=== PATIENT | female | born 1945 | race Caucasian/White ===

== ENCOUNTER 2017-04-28 09:36 | Inpatient (IN) ==
[2017-04-28 12:24] LABS: Hematocrit 37.3 % (35.3-44.9); Hemoglobin 11.8 g/dL (11.5-15.4); Mean Corpuscular HGB Conc 31.6 g/dL (31.6-35.5); Mean Corpuscular Hemoglobin 28.2 pg (28.0-33.3); Mean Corpuscular Volume 89.2 fL (83.0-100.0); Mean Platelet Volume 12.1 fL (9.4-12.4); Platelet Count 109 K/mcL (140-400); Red Blood Count 4.18 M/mcL (3.82-4.97); Red Cell Distribution Width 16.4 % (11.5-14.5)
[2017-04-28 12:33] LABS: Albumin 2.6 g/dL (3.5-5.0); Albumin/Globulin Ratio 0.9 (1.1-2.2); Bilirubin,Total 3.4 mg/dL (0.2-1.2); Calcium 7.9 mg/dL (8.6-10.8); Total Protein 5.6 g/dL (6.0-8.3)
[2017-04-28 13:13] LABS: Lymphocytes # 0.2 K/mcL (0.6-4.6); Monocytes # 0.2 K/mcL (0.0-1.3); Neutrophils # 17.8 K/mcL (1.6-8.9)
[2017-04-28 13:14] LABS: Platelet Estimate Slight Decrease (Normal)
[2017-04-28 13:15] LABS: Dohle Bodies Present (Not Present)
[2017-04-28] MEDS ORDERED: Acetylcysteine 15,000 MG in D5% in Water 250 ML IVC ONE (13:50)
--- NOTE | 2017-04-28 13:51 | Internal Med History&Physical ---
<Faviola Motley - Last Filed: 04/28/17 18:08> Date of Encounter: 04/28/17 Time of Encounter: 13:43 Assessment and Plan (1) Septic shock Current visit: Yes Status: Acute Upon initial arrival to [facility] ED, patient had HR 104, Respirations 25, BP 71/54 VBG lactic acid at [facility] was 5 repeat serum lactic acid is now 3 CT abdomen/pelvis showed no significant findings. Source of infection likely secondary to UTI Patient received a dose of ceftriaxone and zosyn at the ED in [place] Plan: Continue Ceftriaxone Appreciate Critical care team input Patient received 4 fluid boluses and remains hypotensive. If she continues to be hypotensive, may require vasopressor support to maintain MAP above 65 Blood and urine cultures drawn at [facility] and are pending (2) UTI (urinary tract infection) Current visit: No Status: Acute Plan as above Qualifiers: Urinary tract infection type: site unspecified Hematuria presence: with hematuria Qualified Code(s): N39.0 - Urinary tract infection, site not specified; R31.9 - Hematuria, unspecified (3) Abdominal pain Current visit: No Status: Acute Etiology unclear at this time CT abdomen/pelvis unremarkable. upon exam, patient had no peritoneal signs or guarding present. continue to monitor. Qualifiers: Abdominal location: unspecified location Qualified Code(s): R10.9 - Unspecified abdominal pain (4) Transaminitis Current visit: Yes Status: Acute At [facility], AST was 712, ALT was 217 Etiology unclaer at this time. possibilities include shock liver, hepatitis, or drug toxicity. Plan: UDS pending. Ultrasound of liver pending. (5) DEAN (acute kidney injury) Current visit: Yes Status: Acute baseline creatinine is normal. Cr at [facility] was 2.68 Etiology likely secondary to septic shock. Plan: hold home dose lasix, avoid nephrotoxins. continue with IVF and supportive care. (6) Elevated troponin Current visit: Yes Status: Acute patient denies chest pain at this time. initial troponin at [facility] was .18 etiology could be due to renal insufficiency from DEAN Plan: EKG trend troponins q6h (7) DVT prophylaxis Current visit: Yes Status: Acute heparin SQ Internal Medicine - H&P: HPI Chief complaint: abdominal pain Admitted From: Hospital to Hospital Transfer Plans for Post Hospital Care: Home History of present illness: Ms. Wei is a 71 year old female with PMHx of recurrent UTIs parkinsonism, urinary incontinence, morbid obesity, COPD (supposed to be on home oxygen but is non compliant with it), CHF, HTN, arthritis. patient lives at home with her daughter and is bed bound at home and rarely gets up and moves around. Patient is a transfer from [facility] emergency department for septic shock. Patient is a very poor historian and is reluctant to answer many questions. Most of the history was obtained from patient's daughter Es. She arrived to [facility] ED today with CC of abdominal pain, nausea and vomiting. Patient has had abdominal pain for a couple weeks that has since been getting worse. She has had nausea and vomiting that started within the past day. Her vomit was non bloody and was yellow/green color. she had about two episodes of vomiting since last night. Her abdominal pain is about 6/10 and is diffuse, but patient did not have any guarding or peritoneal signs upon abdominal exam. She denies chest pain, shortness of breath, burning with urination. Patient does get frequent UTIs and calls her PCP office and often gets antibiotics called in for her. she says she has had about ten UTIs in the past year. SHe denies blood or urine in her stool. She does not recall eating anything out of the ordinary recently. Recent sick contacts include the daughter, who had the "flu" a couple months ago with nausea vomiting and diarrhea. Overall, patient states she feels very weak and does suffer from chronic pain due to her arthritis. Past Med Surg Social Fam HX - Past Medical History Medical history: arthritis, COPD, GERD, hypertension, osteoporosis Psychiatric history: ADHD, depression - Past Surgical History Surgical History: other - Social History Smoking Status: Never smoker Smokeless Tobacco Status: No Alcohol use: none Drug use: none - Family History Mother Living Status: Hx Family Cardiac Disorders: Yes Hx Family Endocrine Disorder: Yes (Diabetes) Internal Medicine - H&P: Meds Alendronate Sodium [Fosamax] 70 mg PO QWEEK 02/13/16 [History] Calcium Carb/Vitamin D3/Vit K1 [Calcium + D Soft Chewable Tab] 1 mg PO DAILY 04/22 [History] Citalopram Hydrobromide [Celexa] 20 mg PO DAILY 02/13/16 [History] Fluticasone Propionate Nasal [Flonase] 1 spr NS DAILY PRN 02/13/16 [History] Furosemide [Lasix] 40 mg PO DAILY 02/13/16 [History] Ranitidine HCl [Zantac] 150 mg PO BID 02/13/16 [History] Solifenacin Succinate [Vesicare] 1 mg PO HS 02/13/16 [History] Tolterodine Tartrate [Detrol] 2 mg PO BID 02/13/16 [History] Silver Sulfadiazine [Silvadene] 1 appl TP DAILY #1 tube 02/18/16 [Rx] Amitriptyline [Elavil] 25 mg PO DAILY 04/28/17 [History] DULoxetine [Cymbalta] 30 mg PO BID 04/28/17 [History] HYDROcodone/Acet 7.5/325 mg [[place] 7.5-325 mg] 1 tab PO Q6H 04/28/17 [History] Naproxen [Naprosyn] 500 mg PO BID 04/28/17 [History] Nystatin POWDER [Nystop] 1 appl TP BID 04/28/17 [History] Potassium Chloride [K-Tab ER] 20 meq PO DAILY 04/28/17 [History] Trazodone HCl 100 mg PO BID 04/28/17 [History] 3 Allergy/AdvReac Type Severity Reaction Status Date / Time ibuprofen [From Motrin] AdvReac Nausea Verified 02/13/16 10:46 All Systems PM: A 10-system review of systems was performed and is negative for pertinent findings except as documented above in the HPI. - Constitutional Constitutional: as per HPI - EENT Eyes: as per HPI Ears: as per HPI Nose, mouth and throat: as per HPI - Breasts Breasts: as per HPI - Cardiovascular Cardiovascular ROS IM: as per HPI - Respiratory Respiratory: as per HPI - Gastrointestinal Gastrointestinal: as per HPI - Genitourinary Genitourinary: as per HPI Menstruation: as per HPI - Musculoskeletal Musculoskeletal ROS IM: as per HPI - Integumentary Integumentary IM: as per HPI - Neurological Neurological ROS: as per HPI - Psychiatric Psychiatric: as per HPI - Endocrine Endocrine IM: as per HPI - Hematologic/Lymphatic Hematologic/Lymphatic: as per HPI - Allergic/Immunologic Allergic/Immunologic: as per HPI - Constitutional Vitals: Temp Pulse Resp BP Pulse Ox 98.3 F 104 20 88/50 95 04/28/17 11:46 04/28/17 12:46 04/28/17 12:46 04/28/17 12:46 04/28/17 12:46 General appearance: Present: mild distress, A&O X 3 Exam: morbidly obese - Head Head exam: Present: atraumatic, normocephalic - Neck Neck exam general surgery: Present: supple, trachea midline - Respiratory Respiratory exam: Present: CTAB - Cardiovascular Cardiovascular exam: Present: RRR, +S1, +S2 - GI/Abdominal GI/Abdominal exam: Present: hypoactive bowel sounds, soft. Absent: distended, tenderness - Extremities Exam Additional comments: non pitting edema on extremities bilaterally. - Neurological Exam Neurological exam: Present: alert, oriented X3 - Psychiatric Psychiatric exam: Present: anxious - Skin Additional comments: areas of skin breakdown in between legs and buttocks. left gluteus kenan bed sore present, appears to be superficial. left lower extremity appears to have darkened skin with thickening. Internal Med - H&P Results - Labs CBC & Chem 7: 04/28/17 12:00 04/28/17 12:00 Labs: Short CBC 04/28/17 Range/Units 12:00 WBC 19.3 H (4.3-11.1) K/mcL Hgb 11.8 (11.5-15.4) g/dL Hct 37.3 (35.3-44.9) % Plt Count 109 L (140-400) K/mcL Neutrophils # 17.8 H (1.6-8.9) K/mcL BMP 04/28/17 12:00 Sodium 139 Potassium 4.0 Chloride 106 Carbon Dioxide 23 BUN 40 H Creatinine 2.71 H Glucose 94 Calcium 7.9 L Liver Function 04/28/17 Range/Units 12:00 Total Bilirubin 3.4 H (0.2-1.2) mg/dL AST 554 H (5-34) Units/L ALT 227 H (0-55) Units/L Alkaline Phosphatase 97 (38-126) Units/L Albumin 2.6 L (3.5-5.0) g/dL <Gregory Rodrigez P - Last Filed: 04/28/17 18:12> Date of Encounter: 04/28/17 Internal Medicine - H&P: HPI History of present illness: Ms. Wei is a 71 year old female All Systems PM: A 10-system review of systems was performed and is negative for pertinent findings except as documented above in the HPI. - Constitutional Vitals: Temp Pulse Resp BP Pulse Ox 98.3 F 102 20 70/40 95 04/28/17 11:46 04/28/17 14:00 04/28/17 14:00 04/28/17 14:00 04/28/17 14:00 Internal Med - H&P Results - Labs CBC & Chem 7: 04/28/17 12:00 04/28/17 12:00 Labs: Short CBC 04/28/17 Range/Units 12:00 WBC 19.3 H (4.3-11.1) K/mcL Hgb 11.8 (11.5-15.4) g/dL Hct 37.3 (35.3-44.9) % Plt Count 109 L (140-400) K/mcL Neutrophils # 17.8 H (1.6-8.9) K/mcL BMP 04/28/17 12:00 Sodium 139 Potassium 4.0 Chloride 106 Carbon Dioxide 23 BUN 40 H Creatinine 2.71 H Glucose 94 Calcium 7.9 L Liver Function 04/28/17 Range/Units 12:00 Total Bilirubin 3.4 H (0.2-1.2) mg/dL AST 554 H (5-34) Units/L ALT 227 H (0-55) Units/L Alkaline Phosphatase 97 (38-126) Units/L Albumin 2.6 L (3.5-5.0) g/dL - Attending Attestation I examined this patient and my medical decision-making was reviewed with the Resident Physician. I agree with the documented findings, disposition and treatment plan as described except to the extent set forth below. ICU team input appreciated. 71-year-old female Complex medical history, Transferred from neighboring hospital for further management. Septic shock likely source /lung Possible shock liver Presently on appropriate antibiotics Will get ICU consult and will follow their recommendations.
[2017-04-28 14:14] LABS: Amphetamine Screen,Urine Negative ng/mL (Cutoff=1000); Barbiturate Screen,Urine Negative ng/mL (Cutoff=200); Benzodiazepines Screen,Urine Negative ng/mL (Cutoff=200); Cannabinoid Screen,Urine Negative ng/mL (Cutoff = 50); Cocaine Screen,Urine Negative ng/mL (Cutoff= 300); Opiate Screen,Urine Negative ng/mL (Cutoff=300); Phencyclidine Screen,Urine Negative ng/mL (Cutoff=25)
--- NOTE | 2017-04-28 14:57 | Pulmonology Consult Note ---
<Ethan Espino W - Last Filed: 04/28/17 17:05> Date of Encounter: 04/28/17 Medications and Allergies Alendronate Sodium [Fosamax] 70 mg PO QWEEK 02/13/16 [History] Calcium Carb/Vitamin D3/Vit K1 [Calcium + D Soft Chewable Tab] 1 mg PO DAILY 04/22 [History] Citalopram Hydrobromide [Celexa] 20 mg PO DAILY 02/13/16 [History] Fluticasone Propionate Nasal [Flonase] 1 spr NS DAILY PRN 02/13/16 [History] Furosemide [Lasix] 40 mg PO DAILY 02/13/16 [History] Ranitidine HCl [Zantac] 150 mg PO BID 02/13/16 [History] Solifenacin Succinate [Vesicare] 1 mg PO HS 02/13/16 [History] Tolterodine Tartrate [Detrol] 2 mg PO BID 02/13/16 [History] Silver Sulfadiazine [Silvadene] 1 appl TP DAILY #1 tube 02/18/16 [Rx] Amitriptyline [Elavil] 25 mg PO DAILY 04/28/17 [History] DULoxetine [Cymbalta] 30 mg PO BID 04/28/17 [History] HYDROcodone/Acet 7.5/325 mg [[place] 7.5-325 mg] 1 tab PO Q6H 04/28/17 [History] Naproxen [Naprosyn] 500 mg PO BID 04/28/17 [History] Nystatin POWDER [Nystop] 1 appl TP BID 04/28/17 [History] Potassium Chloride [K-Tab ER] 20 meq PO DAILY 04/28/17 [History] Trazodone HCl 100 mg PO BID 04/28/17 [History] 3 Allergy/AdvReac Type Severity Reaction Status Date / Time ibuprofen [From Motrin] AdvReac Nausea Verified 02/13/16 10:46 All Systems: A 10-system review of systems was performed and is negative for pertinent findings except as documented above in the HPI. Physical Examination Vital Signs: Vital Signs, Last 4 Hours Temp Pulse Resp BP Pulse Ox 04/28/17 16:00 97.9 F 109 20 105/52 97 04/28/17 15:45 109 04/28/17 15:00 105 20 93/74 97 04/28/17 14:00 102 20 70/40 95 Results - Laboratory Findings CBC and BMP: 04/28/17 12:00 04/28/17 12:00 ABG ABG pH 7.22 pH Units (7.32-7.45) L 04/28/17 16:44 ABG pCO2 48 mmHg (35-45) H 04/28/17 16:44 ABG pO2 59 mmHg (85-104) L 04/28/17 16:44 ABG O2 Saturation 84 % (95-98) L 04/28/17 16:44 Abnormal lab findings: Abnormal lab results WBC 19.3 K/mcL (4.3-11.1) H 04/28/17 12:00 RDW 16.4 % (11.5-14.5) H 04/28/17 12:00 Plt Count 109 K/mcL (140-400) L 04/28/17 12:00 Band Neutrophils % 15.0 % (0-4) H 04/28/17 12:00 Metamyelocytes % 5.0 % (0) H 04/28/17 12:00 Myelocytes % 1.0 % (0) H 04/28/17 12:00 Neutrophils # 17.8 K/mcL (1.6-8.9) H 04/28/17 12:00 Lymphocytes # 0.2 K/mcL (0.6-4.6) L 04/28/17 12:00 Dohle Bodies Present (Not Present) A 04/28/17 12:00 Platelet Estimate Slight Decrease (Normal) L 04/28/17 12:00 ABG pH 7.22 pH Units (7.32-7.45) L 04/28/17 16:44 ABG pCO2 48 mmHg (35-45) H 04/28/17 16:44 ABG pO2 59 mmHg (85-104) L 04/28/17 16:44 ABG HCO3 19.6 mEQ/L (21-27) L 04/28/17 16:44 ABG O2 Saturation 84 % (95-98) L 04/28/17 16:44 ABG Base Excess -8.0 mEq/L (-2.0 to 3.0) L 04/28/17 16:44 BUN 40 mg/dL (7-20) H 04/28/17 12:00 Creatinine 2.71 mg/dL (0.57-1.11) H 04/28/17 12:00 Est GFR ( Amer) 21 (> 60) L 04/28/17 12:00 Est GFR (Non-Af Amer) 17 (> 60) L 04/28/17 12:00 POC Glucose 91 (58-89) H 04/28/17 11:37 Lactic Acid 3.0 mmol/L (0.5-2.2) H 04/28/17 12:00 Calcium 7.9 mg/dL (8.6-10.8) L 04/28/17 12:00 Total Bilirubin 3.4 mg/dL (0.2-1.2) H 04/28/17 12:00 AST 554 Units/L (5-34) H 04/28/17 12:00 ALT 227 Units/L (0-55) H 04/28/17 12:00 Troponin I 0.24 ng/mL (0-0.03) H* 04/28/17 14:37 Serum Total Protein 5.6 g/dL (6.0-8.3) L 04/28/17 12:00 Albumin 2.6 g/dL (3.5-5.0) L 04/28/17 12:00 Albumin/Globulin Ratio 0.9 (1.1-2.2) L 04/28/17 12:00 - Clinical Findings Intake & Output: Intake & Output 04/28/17 04/28/17 04/28/17 07:59 15:59 23:59 Intake Total 825 / 825 Output Total 50 / 50 Balance -50 / -50 825 / 825 Weight 146.964 kg Consult Discharge Plan - Plan Referrals: NONE,PCP [Primary Care Provider] - - Attending Attestation I examined this patient and my medical decision-making was reviewed with the Resident Physician. I agree with the documented findings, disposition and treatment plan as described except to the extent set forth below. We independently had [id number] contact with the patient I spent 40min of Critical Care time with this patient. It involved decision making of high complexity to assess, manipulate, and support vital organ system failure and/or to prevent further life threatening deterioration of the patient' s condition. The time involved in the performance of separately reportable procedures was not counted toward critical care time. Patient seen and examined at bedside Labs, radiology, chart personally reviewed. Management was reviewed during multidisciplinary critical care rounds. Neuropsych:Awake and alrt mildy confusioin ?Encephalopathy from hepatic cause vs Sepsis. No focal deficit. Cont to avoid CYANIDE POT HARDENER depressant meds. Focus on sleep wake cycle establishment. Pulm: Acceptable oxygenation on 2L NC o2. Eidence of pulmonary vascular congestion. Holding diuresis for hypotension. Check ABG Cards: Distributive shock physiology with MOSF. CVC placed for Vasopressor ( levophed). Cont to trend Lactate. evidence of NSTEMI likely type 2MI s/t to demand ischemia and renal failure. ECHO pending. History of CHF with elvated BNP but not currently in cardiogenic shock. Goal MAP >60 FEN-GI: Acute liver failure. Unclear etiology possibly related to acetaminophen ingestion vs Sepsis. 24hour NAC protocol instituted. Hepatitis panel pending. GI consulted. CT scan notable for Colitis. RUQ U/S pending. APAP levels pending Renal: DEAN likely prerenal azotemia. Remains Auric. Trend Renal function and Potassium. Renal consult based upon clinical course. No hydronephrosis on imaging. Haji catheter placed. ID: Acute Septic Shock likely secondary to colitis antimicrobials have been given cultures obtained trend lactate every 6 hours. De-escalate ABx based upon culture sensitivities Heme/Onc: Thrombocytopenia mild coagulopathy H/H stable. No overt signs of bleeding. SCDs for DVT prophylaxis for now. Peripheral smear and Fibrinogen pending. Estefany K 5mg Subq x 3 doses for INR. Endo: Glucose Monitored and stable. Integ/MSK: Skin Care per routine ICU Nursing Protocol to prevent ulcers. Lines: All lines examined without evidence of infection including: Dispo: Remains critically ill. CODE: Full Code patient and family updated at bedside. <Nikolay Lozada - Last Filed: 04/28/17 18:58> Date of Encounter: 04/28/17 Time of Encounter: 14:57 Assessment and Plan (1) Septic shock Current Visit: Yes Status: Acute This patient was admitted to the intensive care unit because she was severely hypotensive and not fluid responsive after 4 L of normal saline. A central line was placed in the right internal jugular vein under ultrasound. This will be utilized for medication administration as well as Levophed if her mean arterial pressure cannot be maintained greater than 65. She was provided 500 mL bolus of 5% albumin. Blood cultures have been obtained. Her initial lactic acid was 3.2. We will repeat this in the morning. At this time, I believe her septic shock is multifactorial. I believe she has a urinary tract infection, as well as possible colitis. (2) Acute liver failure Current Visit: Yes Status: Acute Her latest AST was 554, ALT 227. She has an INR of 1.5. Her bilirubin was 3.2. I have consulted gastroenterology regarding this patient's care. We have obtained a and a Tylenol level and this was not elevated. She was given the N- acetylcysteine protocol. We are obtaining a right upper quadrant ultrasound. We are also providing this patient with 5 mg vitamin K over the next 3 days. Her current blood glucose is 94. We will monitor her glucose by giving checks every 4 hours as hepatic failure can lead to severe hypoglycemia. (3) UTI (urinary tract infection) Current Visit: No Status: Acute Patient is currently on Rocephin and this should cover her for urinary tract infection. We are currently awaiting urine culture. She does have positive nitrites, negative leukocyte esterase. Qualifiers: Urinary tract infection type: site unspecified Hematuria presence: with hematuria Qualified Code(s): N39.0 - Urinary tract infection, site not specified; R31.9 - Hematuria, unspecified (4) Abdominal pain Current Visit: No Status: Acute This is being followed by gastroenterology. We will repeat a lactic acid in the morning. She is also receiving a ultrasound of her right upper quadrant. She is currently on Rocephin and Flagyl. She is also on IVP protonix. Qualifiers: Abdominal location: unspecified location Qualified Code(s): R10.9 - Unspecified abdominal pain (5) DEAN (acute kidney injury) Current Visit: Yes Status: Acute Patient has a BUN of 40. Patient has a creatinine of 2.71. Her potassium is currently 3.9. We will do repeat potassiums every 6 hours. We will monitor her kidney function again in the morning and I will possibly consult nephrology. (6) Transaminitis Current Visit: Yes Status: Acute See above (7) CHF (congestive heart failure) Current Visit: Yes Status: Acute This patient has a past medical history of congestive heart failure. I did auscultate rales on her lung exam. Her chest x-ray shows bilateral pulmonary edema. We are obtaining an echocardiogram of the heart. We will repeat a chest x-ray in the morning. Qualifiers: Congestive heart failure type: unspecified congestive heart failure type Qualified Code(s): I50.9 - Heart failure, unspecified (8) Elevated troponin Current Visit: Yes Status: Acute This patient has a past medical history of congestive heart failure. She currently has no active chest pain rash or or tightness. Her EKG does not show any new ST segment changes. I suspect that her elevated troponin is multifactorial. She has poor renal function as well as CHF. We will repeat a another troponin. Her first troponin was 0.18 and her second was 0.24. We are obtaining an echocardiogram. (9) DVT prophylaxis Current Visit: Yes Status: Acute Patient was on 5000 units subcutaneous heparin. I have discontinued this and have her started her on soft compressive devices out of concern for hepatic failure and possible bleeding. I will reevaluate this in the morning. I will repeat a PT, PTT, and INR. History of Present Illness Consult date: 04/28/17 Requesting physician: Gregory Rodrigez Reason for consult: other (Hypotension) Chief complaint: Severe hypotension secondary to UTI, elevated transaminases History of present illness: This is a 71-year-old female with a past medical history of COPD, recurrent UTIs , parkinsonism, CHF, hypertension. She presented to [facility] department with a chief complaint of epigastric abdominal pain, nausea vomiting. She then was transferred to inpatient at [facility]. We were consulted in the intensive care unit due to worsening hypotension, elevated transaminases of the liver, and urinary tract infection. Past Med Surg Social Fam HX - Past Medical History Medical history: arthritis, COPD, GERD, hypertension, osteoporosis Psychiatric history: ADHD, depression - Past Surgical History Surgical History: other - Social History Smoking Status: Never smoker Smokeless Tobacco Status: No Alcohol use: none Drug use: none - Family History Mother Living Status: Hx Family Cardiac Disorders: Yes Hx Family Endocrine Disorder: Yes (Diabetes) All Systems: A 10-system review of systems was performed and is negative for pertinent findings except as documented above in the HPI. - Constitutional Constitutional: fatigue - Respiratory Respiratory: no cough, no dyspnea, no hemoptysis, no wheezing, no pain on inspirtation - Gastrointestinal Gastrointestinal: abdominal pain (Epigastric), nausea, vomiting, no hematemesis , no hematochezia, no melena - Genitourinary Genitourinary: no change in urinary stream, no difficulty urinating, no difficulty voiding, no dysuria Physical Examination Vital Signs: Vital Signs, Last 4 Hours Temp Pulse Resp BP Pulse Ox 04/28/17 14:00 102 20 70/40 95 04/28/17 12:46 104 20 88/50 95 04/28/17 11:46 98.3 F 105 20 98/63 94 04/28/17 11:45 104 General appearance: appears uncomfortable, other (Morbidly obese 71-year-old female appears to be in distress, moaning and groaning.) Eyes: nonicteric ENT: oropharynx dry Neck: supple Effort: normal Inspection: normal Auscultation: bilateral: rales Cardiovascular: other (Telemetry: Normal sinus tachycardia with a rate of 103) Integumentary: other Extremities: pink and warm, pulses normal, edema (2+ pitting edema in lower shins bilaterally) other (Patient appears to be mildly confused) Results - Laboratory Findings CBC and BMP: 04/28/17 12:00 04/28/17 12:00 Abnormal lab findings: Abnormal lab results WBC 19.3 K/mcL (4.3-11.1) H 04/28/17 12:00 RDW 16.4 % (11.5-14.5) H 04/28/17 12:00 Plt Count 109 K/mcL (140-400) L 04/28/17 12:00 Band Neutrophils % 15.0 % (0-4) H 04/28/17 12:00 Metamyelocytes % 5.0 % (0) H 04/28/17 12:00 Myelocytes % 1.0 % (0) H 04/28/17 12:00 Neutrophils # 17.8 K/mcL (1.6-8.9) H 04/28/17 12:00 Lymphocytes # 0.2 K/mcL (0.6-4.6) L 04/28/17 12:00 Dohle Bodies Present (Not Present) A 04/28/17 12:00 Platelet Estimate Slight Decrease (Normal) L 04/28/17 12:00 BUN 40 mg/dL (7-20) H 04/28/17 12:00 Creatinine 2.71 mg/dL (0.57-1.11) H 04/28/17 12:00 Est GFR ( Amer) 21 (> 60) L 04/28/17 12:00 Est GFR (Non-Af Amer) 17 (> 60) L 04/28/17 12:00 POC Glucose 91 (58-89) H 04/28/17 11:37 Lactic Acid 3.0 mmol/L (0.5-2.2) H 04/28/17 12:00 Calcium 7.9 mg/dL (8.6-10.8) L 04/28/17 12:00 Total Bilirubin 3.4 mg/dL (0.2-1.2) H 04/28/17 12:00 AST 554 Units/L (5-34) H 04/28/17 12:00 ALT 227 Units/L (0-55) H 04/28/17 12:00 Serum Total Protein 5.6 g/dL (6.0-8.3) L 04/28/17 12:00 Albumin 2.6 g/dL (3.5-5.0) L 04/28/17 12:00 Albumin/Globulin Ratio 0.9 (1.1-2.2) L 04/28/17 12:00 - Clinical Findings Intake & Output: Intake & Output 04/27/17 04/28/17 04/28/17 23:59 07:59 15:59 Output Total 0 / 0 Balance 0 / 0 Weight 146.964 kg
[2017-04-28] MEDS ORDERED: Acetylcysteine 5,000 MG in D5% in Water 500 ML IVC ONE (15:00)
[2017-04-28] MEDS ORDERED: Albumin Human 5% 25 GM/500 ML VIAL IVC ONE (15:15)
[2017-04-28 16:53] LABS: ABG HCO3 19.6 mEQ/L (21-27); ABG Oxygen Saturation 84 % (95-98); ABG PCO2 48 mmHg (35-45); ABG PH 7.22 pH Units (7.32-7.45); ABG PO2 59 mmHg (85-104); ABG TCO2 21.1 mEq/L (20-26)
[2017-04-28 16:54] LABS: Blood Gas FiO2 28 %; Blood Gas Liter Flow 2 L/MIN
[2017-04-28] MEDS: Pantoprazole 40 MG VIAL IVP SCH (16:57)
[2017-04-28] MEDS: MetroNIDAZOLE 500 MG/100 ML 500 MG/100 ML BAG IVPB SCH ×2 (16:58→23:57)
[2017-04-28] MEDS: Ondansetron 4 MG/2 ML VIAL IVP PRN ×2 (17:26→21:47)
[2017-04-28] MEDS ORDERED: 0.9 % Sodium Chloride 500 ML ONE (17:45)
[2017-04-28 17:48] LABS: Salicylate < 5.0 mg/dL (15-30)
[2017-04-28] MEDS ORDERED: Lidocaine -MPF 2% 5 ML VIAL ONE (17:54)
[2017-04-28] MEDS ORDERED: *HR* Heparin 5,000 UNIT/ML VIAL SQ SCH (18:00)
[2017-04-28] MEDS ORDERED: Acetylcysteine 10,000 MG in D5% in Water 1,000 ML IVC ONE (19:00)
--- NOTE | 2017-04-28 19:16 | Procedure Note ---
Date of procedure: 04/28/17 Condition: critical Disposition: ICU Procedures - Central Line Placement Right IJ Central Line Inserted*: Yes Central Line Catheter Replacement*: Yes Central Line Insertion: emergent Consent Obtained: written consent Procedural Pause: verify patient name and date of , timeout performed per policy, dragan and assess the site, assemble equipment and verify supplies, perform hand hygiene Patient Placed on Monitor/Pulse Ox: Yes During the Procedure: clinician is wearing sterile gloves, cap, mask,& gown during insertion, sterile field and sterile technique are maintained, patient's face is covered with drape or mask and wearing a cap, everyone in room is wearing a mask Central Line Prep: Chlorhexidine scrub Prep the Procedure Site: apply chloraprep to the skin using a back and forth scrubbing motion, apply chloraprep for 30 seconds (upper body), 1-2 min ( femoral sites), allow prep to dry, drape the patient with a full body drape Local Anesthetic: lidocaine 1% Amount of anesthesia used (mL): 5 Ultrasound Used for Placement: Yes Central Line Lumen Inserted: triple Post Procedure: sutured in place, good blood return, all ports aspirated, flushed, capped, sterile dressing applied, guide wire removed and visualized, dressing is dated Post Procedure X-Ray: tip of catheter in good position Patient Tolerated Procedure: well, no complications Complications: none Name of Clinician Inserting Central Line: Nikolay Lozada Clinician Assisting/Completing Checklist: Dr. Espino
[2017-04-28] MEDS: 0.9 % Sodium Chloride 1,000 ML IVC SCH ×2 (21:06→21:07)
[2017-04-28] MEDS: Dexmedetomidine HCl 400 MCG/100 ML MLS IVC SCH (21:47)
[2017-04-28 23:42] LABS: ABG Base Excess -9.3 mEq/L (-2.0 to 3.0); ABG HCO3 17.6 mEQ/L (21-27); ABG Oxygen Saturation 97 % (95-98); ABG PCO2 41 mmHg (35-45); ABG PH 7.24 pH Units (7.32-7.45); ABG PO2 109 mmHg (85-104); ABG TCO2 18.9 mEq/L (20-26)
[2017-04-28 23:49] LABS: Blood Gas FiO2 28 %
[2017-04-29] MEDS: Norepinephrine 4 MG in D5% in Water 250 ML IVC SCH ×2 (00:05→14:15)
[2017-04-29] MEDS ORDERED: *HR* LORazepam 2 MG/ML VIAL IVP ONE ×2 (00:08→03:44)
--- NOTE | 2017-04-29 00:15 | Event Note ---
Date of Encounter: 04/29/17 Time of Encounter: 00:13 Repeat ABG showed pH 7.24, CO2, PO2 109, HCO3 18.9. Overall improvement from previous ABG while on NC oxygen. However, patient has had significant agitation. Will start precedex drip at this time and wean as tolerated.
[2017-04-29] MEDS: Dexmedetomidine HCl 400 MCG/100 ML MLS IVC SCH ×3 (01:25→09:17)
[2017-04-29] MEDS: 0.9 % Sodium Chloride 1,000 ML IVC SCH (03:18)
[2017-04-29 03:46] LABS: Hematocrit 35.7 % (35.3-44.9); Hemoglobin 11.5 g/dL (11.5-15.4); Immature Platelets 15.5 % (1.1-6.1); Mean Corpuscular HGB Conc 32.2 g/dL (31.6-35.5); Mean Corpuscular Hemoglobin 28.1 pg (28.0-33.3); Mean Corpuscular Volume 87.3 fL (83.0-100.0); Mean Platelet Volume 12.2 fL (9.4-12.4); Platelet Count 84 K/mcL (140-400); Red Blood Count 4.09 M/mcL (3.82-4.97); Red Cell Distribution Width 16.7 % (11.5-14.5)
[2017-04-29 04:00] LABS: Alanine Aminotransferase 202 Units/L (0-55); Albumin 2.5 g/dL (3.5-5.0); Albumin/Globulin Ratio 0.8 (1.1-2.2); Alkaline Phosphatase 67 Units/L (38-126); Aspartate Amino Transferase 279 Units/L (5-34); BUN/Creatinine Ratio 14 (6-26); Blood Urea Nitrogen 48 mg/dL (7-20); Calcium 7.2 mg/dL (8.6-10.8); Carbon Dioxide 20 mEq/L (19-29); Chloride 105 mEq/L (98-109); Glucose 101 mg/dL (70-99); Magnesium 1.3 mg/dL (1.6-2.6); Osmolality,Calculated 297 (280-300); Phosphorous 3.9 mg/dL (2.3-4.7); Sodium 137 mEq/L (136-145); Total Protein 5.5 g/dL (6.0-8.3); eGFR For African Americans 16 (> 60); eGFR For Non-African Americans 13 (> 60)
[2017-04-29 04:03] LABS: Bilirubin,Total 3.5 mg/dL (0.2-1.2)
[2017-04-29 04:04] LABS: INR 2.1; Prothrombin Time 22.6 Seconds (9.4-12.1)
[2017-04-29 04:05] LABS: Ionized Calcium 0.96 mmol/L (1.15-1.35)
[2017-04-29 04:07] LABS: Activated Partial Thrombo Time 34.7 Seconds (26.0-36.0)
[2017-04-29 04:26] LABS: Monocytes # 0.5 K/mcL (0.0-1.3); Neutrophils # 22.7 K/mcL (1.6-8.9)
[2017-04-29 04:27] LABS: Dohle Bodies Present (Not Present); Platelet Estimate Decreased (Normal); Toxic Vacuolation Present (Not Present)
[2017-04-29] MEDS: Pantoprazole 40 MG VIAL IVP SCH (05:28)
[2017-04-29] MEDS: Calcium Gluconate 1,000 MG in D5% in Water 100 ML IVPB PRN ×2 (06:10→20:04)
[2017-04-29] MEDS: Magnesium Sulfate 2 GM in D5% in Water 100 ML IVPB PRN (06:11)
[2017-04-29 06:43] LABS: Lipase < 10 Units/L (8-78)
[2017-04-29] MEDS ORDERED: Fluticasone Propionate Nasal 50 MCG/SPRAY BOTTLE NS PRN (07:01)
--- NOTE | 2017-04-29 08:29 | Pulmonology Progress Note ---
<KenzieEthan W - Last Filed: 04/29/17 11:25> Date of Encounter: 04/29/17 Objective PUL Vital signs: Last Vital Signs Temp 99.0 F 04/29/17 07:56 Pulse 109 04/29/17 09:00 Resp 20 04/29/17 09:00 BP 104/51 04/29/17 09:00 Pulse Ox 92 04/29/17 09:00 Results - Laboratory Findings CBC and BMP: 04/29/17 03:30 04/29/17 03:30 ABG ABG pH 7.24 pH Units (7.32-7.45) L 04/28/17 23:22 ABG pCO2 41 mmHg (35-45) 04/28/17 23:22 ABG pO2 109 mmHg (85-104) H 04/28/17 23:22 ABG O2 Saturation 97 % (95-98) 04/28/17 23:22 PT/INR, D-dimer PT 22.6 Seconds (9.4-12.1) H 04/29/17 03:30 Abnormal lab findings: Abnormal lab results WBC 24.1 K/mcL (4.3-11.1) H 04/29/17 03:30 RDW 16.7 % (11.5-14.5) H 04/29/17 03:30 Plt Count 84 K/mcL (140-400) L 04/29/17 03:30 Band Neutrophils % 22.0 % (0-4) H 04/29/17 03:30 Metamyelocytes % 5.0 % (0) H 04/28/17 12:00 Myelocytes % 1.0 % (0) H 04/28/17 12:00 Neutrophils # 22.7 K/mcL (1.6-8.9) H 04/29/17 03:30 Toxic Vacuolation Present (Not Present) A 04/29/17 03:30 Dohle Bodies Present (Not Present) A 04/29/17 03:30 Platelet Estimate Decreased (Normal) L 04/29/17 03:30 Immature Plt Fraction 15.5 % (1.1-6.1) H 04/29/17 03:30 PT 22.6 Seconds (9.4-12.1) H 04/29/17 03:30 Fibrinogen 102 mg/dL (169-393) L 04/29/17 03:30 ABG pH 7.24 pH Units (7.32-7.45) L 04/28/17 23:22 ABG pO2 109 mmHg (85-104) H 04/28/17 23:22 ABG HCO3 17.6 mEQ/L (21-27) L 04/28/17 23:22 ABG Total CO2 18.9 mEq/L (20-26) L 04/28/17 23:22 ABG Base Excess -9.3 mEq/L (-2.0 to 3.0) L 04/28/17 23:22 Potassium 5.0 mEq/L (3.5-4.5) H 04/29/17 03:30 BUN 48 mg/dL (7-20) H 04/29/17 03:30 Creatinine 3.38 mg/dL (0.57-1.11) H 04/29/17 03:30 Est GFR ( Amer) 16 (> 60) L 04/29/17 03:30 Est GFR (Non-Af Amer) 13 (> 60) L 04/29/17 03:30 Glucose 101 mg/dL (70-99) H 04/29/17 03:30 POC Glucose 116 (58-89) H 04/29/17 07:32 Calcium 7.2 mg/dL (8.6-10.8) L 04/29/17 03:30 Ionized Calcium 0.96 mmol/L (1.15-1.35) L 04/29/17 03:30 Magnesium 1.3 mg/dL (1.6-2.6) L 04/29/17 03:30 Total Bilirubin 3.5 mg/dL (0.2-1.2) H 04/29/17 03:30 AST 279 Units/L (5-34) H 04/29/17 03:30 ALT 202 Units/L (0-55) H 04/29/17 03:30 Troponin I 0.16 ng/mL (0-0.03) H* 04/28/17 21:00 Serum Total Protein 5.5 g/dL (6.0-8.3) L 04/29/17 03:30 Albumin 2.5 g/dL (3.5-5.0) L 04/29/17 03:30 Albumin/Globulin Ratio 0.8 (1.1-2.2) L 04/29/17 03:30 Salicylates < 5.0 mg/dL (15-30) L 04/28/17 14:37 Acetaminophen 1.0 mcg/mL (10-30) L 04/28/17 14:37 - Clinical Findings Intake & Output: Intake & Output 04/28/17 04/29/17 04/29/17 23:59 07:59 15:59 Intake Total 976 / 976 300 / 300 414 / 414 Output Total 0 / 0 35 / 35 Balance 976 / 976 265 / 265 414 / 414 Consult Discharge Plan - Plan Referrals: NONE,PCP [Primary Care Provider] - - Attending Attestation I examined this patient and my medical decision-making was reviewed with the Resident Physician. I agree with the documented findings, disposition and treatment plan as described except to the extent set forth below. We independently had [id number] contact with the patient I spent 35min of Critical Care time with this patient. It involved decision making of high complexity to assess, manipulate, and support vital organ system failure and/or to prevent further life threatening deterioration of the patient' s condition. The time involved in the performance of separately reportable procedures was not counted toward critical care time. Patient seen and examined at bedside Labs, radiology, chart personally reviewed. Management was reviewed during multidisciplinary critical care rounds. Neuropsych: worsening encephalopathy which is metabolic, possible liver disease , and sepsis. Cont precedex. Avoid MANAGER STERILE depressants. Sleep Wake Cycle Jain Pulm: Acceptable oxygenation on 2L NC o2. Mild respiratory insufficiency based upon ABG but poor candidate for NIV becacuse of AMS and vomiting. Will monitor closely may need intubation if further clinical deterioration. Clear evidence of pulmonary edema but DEAN reqiring HD will attempt fluid removal this way. Cards: Shock physiology with MOSF.most c/w distributive shock may have component of Cardiogenic shock based upon ECHO findings. encouragingly lactate is normalizing but she is requriing low dose infusion of levophed to keep MAP > 60. NSTEMI likely demand ischemia. ECHO shows reduced EF% Cardiology consulted. No prior ECHO to compare with. FEN-GI: Acute liver insufficiecy. Unclear etiology possibly related to Sepsis. 24hour NAC protocol given (APAP wnl) Hepatitis panel pending. GI consulted. CT scan notable for Colitis. RUQ U/S pending. unremarkable. Lipase WNL. Renal: DEAN likely prerenal azotemia. Remains Auric. Trend Renal function and Potassium which is elevated today and kayexalate given. Renal consult for HD. ID: Acute Septic Shock likely secondary of unclear etiology but possible intrrabdominal given ongoing pain however CT abd without acute process. antimicrobials have been given cultures. De-escalate ABx based upon culture sensitivities Heme/Onc: Thrombocytopenia mild coagulopathy H/H stable. No overt signs of bleeding. SCDs for DVT prophylaxis for now. Peripheral smear pending. Fibrinogen low normal (102) no overt evidence of bleeding to suggest DIC but will follow closely. Vitamin K given. Endo: Glucose Monitored and stable. Integ/MSK: Skin Care per routine ICU Nursing Protocol to prevent ulcers. Lines: All lines examined without evidence of infection including: right CVC Dispo: Remains critically ill. CODE: Full Code patient and family updated at bedside. Palliative Care Consulted. . <Nikolay Lozada - Last Filed: 04/29/17 13:10> Date of Encounter: 04/29/17 Time of Encounter: 08:29 Assessment and Plan (1) Septic shock Current Visit: Yes Status: Acute Patient is currently on 5 mcg/m Levophed to maintain a map greater than 60. We will continue doing this. She is currently on Rocephin and Flagyl for antimicrobial coverage. Her highest temperature was 99.0. Her leukocytosis is 24.1. Patient did have an elevated lactic acid yesterday that was elevated at 3.2. Today, this has normalized and is currently at 1.2. Patient received 4 L of normal saline yesterday as well as an additional 1000 mL of N- acetylcysteine. With her congestive heart failure, she developed some pulmonary edema. We are currently holding any new additional fluids at this time. (2) Acute liver failure Current Visit: Yes Status: Acute Hepatic transaminases have improved slightly. However, this patient appears to be encephalopathic. I have obtained an ammonia level and is currently 27. We will continue monitoring her hepatic transaminases. Today's AST is 279, ALT is 202, she does have a elevated total bilirubin at 3.5. We are currently providing this patient with 5 mg of vitamin K today is the second day of her 3 day regimen. This patient has an INR of 2.1, PTT of 22.6, and an a PTT of 34.7. Her fibrinogen levels are low. There are 102. This patient currently does not have any source of active bleeding. We will continue monitoring this. Qualifiers: Hepatic coma status: without hepatic coma Qualified Code(s): K72.00 - Acute and subacute hepatic failure without coma (3) UTI (urinary tract infection) Current Visit: No Status: Acute This patient has a history of recurrent urinary tract infections. She does have a urinalysis that is nitrite positive. It also shows bacteria. It is leukocyte esterase negative. We are obtaining a urine culture and sensitivity. Right now this patient is on Rocephin which should cover for her urinary tract infection. This is the only source of infection that we have found at this time that could be causing her septic shock. Qualifiers: Urinary tract infection type: site unspecified Hematuria presence: with hematuria Qualified Code(s): N39.0 - Urinary tract infection, site not specified; R31.9 - Hematuria, unspecified (4) Abdominal pain Current Visit: No Status: Acute The limousine rental clerk was consulted regarding her epigastric abdominal pain, and elevated hepatic transaminases. At this time, he is not recommending any further treatment. Once patient stabilizes, however, he does recommend performing an MRCP on this patient. Note that her hepatic panel came back negative. Her right upper quadrant ultrasound was also unremarkable. We will continue monitoring this patient's mental status as well as abdominal pain through her stay. 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 A dialysis catheter was placed today. Her renal function has declined from where it was yesterday. This patient has a BUN of 48. She has a creatinine of 3.38. Her creatinine yesterday was 2.71. Her potassium is 5.0. This has worsened from 4.6 from her last potassium. Sintia will correct her hyperkalemia. (6) Transaminitis Current Visit: Yes Status: Acute A hep panel was obtained and the screening was negative for hepatitis A, hepatitis B, or hepatitis C. We will continue monitoring to trend her hepatic transaminases. Patient appears to be encephalopathic at this time with her worsening altered mental status. We have obtained an ammonia level and this is within normal limits. (7) CHF (congestive heart failure) Current Visit: Yes Status: Acute An echocardiogram was performed and that showed left ventricular systolic dysfunction. Patient has not left ventricular ejection fraction of 30-35%. There is no previous echocardiogram to compare this to. I have consulted cardiology regarding this patient. Care Specialist states at this time the patient is too unstable to undergo a cardiac catheterization. However, this could be the plan in the future once she stabilizes. He also believes that a gram-negative sepsis can contribute to a lowered ejection fraction and wall motion abnormalities. This patient's troponin is elevated, but has stabilized. She has no ischemic EKG changes. I suspect that her elevated troponin is due to decreased clearance from her acute kidney injury. Qualifiers: Congestive heart failure type: unspecified congestive heart failure type Congestive heart failure chronicity: acute on chronic Qualified Code(s): I50.9 - Heart failure, unspecified (8) Elevated troponin Current Visit: Yes Status: Acute See above (9) DVT prophylaxis Current Visit: Yes Status: Acute Patient was on 5000 units of heparin subcutaneous every 8 hours. However, she is becoming thrombocytopenic, there is concern that her hepatic failure will prevent her from making coagulation factors. We will now began soft compressive devices. Subjective Principal diagnosis: Septic shock Interval history: Patient became more altered last night. She began screaming out and moaning. She was placed on a pressor dose drip. She was also given Ativan. On exam, patient cannot provide a history. She is moaning and groaning in the room. Objective PUL Vital signs: Last Vital Signs Temp 99.0 F 04/29/17 07:56 Pulse 110 04/29/17 08:00 Resp 20 04/29/17 08:00 BP 91/46 04/29/17 08:00 Pulse Ox 93 04/29/17 08:00 General appearance: agitated, appears uncomfortable, other (Obese 71-year-old female moaning and groaning) Eyes: icteric ENT: oropharynx dry Effort: very labored Auscultation: bilateral: rales Cardiovascular: other Gastrointestinal: hypoactive bowel sounds, other (Firm, mildly distended) Integumentary: normal Extremities: pink and warm, pulses normal, no ischemia or petechiae, edema (2+ pitting edema bilaterally in the lower extremities) unable to assess due to mental status (Patient appeared to be altered, moaning and groaning) Results - Laboratory Findings CBC and BMP: 04/29/17 03:30 04/29/17 03:30 ABG ABG pH 7.24 pH Units (7.32-7.45) L 04/28/17 23:22 ABG pCO2 41 mmHg (35-45) 04/28/17 23:22 ABG pO2 109 mmHg (85-104) H 04/28/17 23:22 ABG O2 Saturation 97 % (95-98) 04/28/17 23:22 PT/INR, D-dimer PT 22.6 Seconds (9.4-12.1) H 04/29/17 03:30 Abnormal lab findings: Abnormal lab results WBC 24.1 K/mcL (4.3-11.1) H 04/29/17 03:30 RDW 16.7 % (11.5-14.5) H 04/29/17 03:30 Plt Count 84 K/mcL (140-400) L 04/29/17 03:30 Band Neutrophils % 22.0 % (0-4) H 04/29/17 03:30 Metamyelocytes % 5.0 % (0) H 04/28/17 12:00 Myelocytes % 1.0 % (0) H 04/28/17 12:00 Neutrophils # 22.7 K/mcL (1.6-8.9) H 04/29/17 03:30 Toxic Vacuolation Present (Not Present) A 04/29/17 03:30 Dohle Bodies Present (Not Present) A 04/29/17 03:30 Platelet Estimate Decreased (Normal) L 04/29/17 03:30 Immature Plt Fraction 15.5 % (1.1-6.1) H 04/29/17 03:30 PT 22.6 Seconds (9.4-12.1) H 04/29/17 03:30 Fibrinogen 102 mg/dL (169-393) L 04/29/17 03:30 ABG pH 7.24 pH Units (7.32-7.45) L 04/28/17 23:22 ABG pO2 109 mmHg (85-104) H 04/28/17 23:22 ABG HCO3 17.6 mEQ/L (21-27) L 04/28/17 23:22 ABG Total CO2 18.9 mEq/L (20-26) L 04/28/17 23:22 ABG Base Excess -9.3 mEq/L (-2.0 to 3.0) L 04/28/17 23:22 Potassium 5.0 mEq/L (3.5-4.5) H 04/29/17 03:30 BUN 48 mg/dL (7-20) H 04/29/17 03:30 Creatinine 3.38 mg/dL (0.57-1.11) H 04/29/17 03:30 Est GFR ( Amer) 16 (> 60) L 04/29/17 03:30 Est GFR (Non-Af Amer) 13 (> 60) L 04/29/17 03:30 Glucose 101 mg/dL (70-99) H 04/29/17 03:30 POC Glucose 116 (58-89) H 04/29/17 07:32 Calcium 7.2 mg/dL (8.6-10.8) L 04/29/17 03:30 Ionized Calcium 0.96 mmol/L (1.15-1.35) L 04/29/17 03:30 Magnesium 1.3 mg/dL (1.6-2.6) L 04/29/17 03:30 Total Bilirubin 3.5 mg/dL (0.2-1.2) H 04/29/17 03:30 AST 279 Units/L (5-34) H 04/29/17 03:30 ALT 202 Units/L (0-55) H 04/29/17 03:30 Troponin I 0.16 ng/mL (0-0.03) H* 04/28/17 21:00 Serum Total Protein 5.5 g/dL (6.0-8.3) L 04/29/17 03:30 Albumin 2.5 g/dL (3.5-5.0) L 04/29/17 03:30 Albumin/Globulin Ratio 0.8 (1.1-2.2) L 04/29/17 03:30 Salicylates < 5.0 mg/dL (15-30) L 04/28/17 14:37 Acetaminophen 1.0 mcg/mL (10-30) L 04/28/17 14:37 - Diagnostic Findings Chest x-ray: report reviewed, image reviewed - Clinical Findings Intake & Output: Intake & Output 04/28/17 04/29/17 04/29/17 23:59 07:59 15:59 Intake Total 976 / 976 300 / 300 Output Total 0 / 0 35 / 35 Balance 976 / 976 265 / 265
[2017-04-29] MEDS: MetroNIDAZOLE 500 MG/100 ML 500 MG/100 ML BAG IVPB SCH ×3 (09:02→23:44)
[2017-04-29] MEDS ORDERED: 0.9 % Sodium Chloride 1,000 ML PRIME SCH (09:04)
[2017-04-29] MEDS ORDERED: 0.9 % Sodium Chloride 1,000 ML IVC SCH (09:15)
--- NOTE | 2017-04-29 09:15 | Nephrology Consult Note ---
Date of Encounter: 04/29/17 Time of Encounter: 09:13 Assessment and Plan (1) DEAN (acute kidney injury) Current Visit: Yes Status: Acute Anuric DEAN suspect ATN in the setting of suspected MOD and sepsis. Recommend start CRRT, specifically CVVHDF: 4K/2.5Ca 1250mL/ for the dialystate and replacement fluid both. Start BFR at 100 and fluid removal slowly, and uptitrate as hemodynamics tolerate D/t the elevated LFTs, she should not be started on Citrate/Ca gtt. Will follow with you. Thank you for consulting the [facility] group. (2) Septic shock Current Visit: Yes Status: Acute As per primary (3) Transaminitis Current Visit: Yes Status: Acute Most likely d/t shock liver (4) Sepsis Current Visit: No Status: Acute As per primary Qualifiers: Sepsis type: sepsis due to unspecified organism Qualified Code(s): A41.9 - Sepsis, unspecified organism (5) UTI (urinary tract infection) Current Visit: No Status: Acute As per primary Qualifiers: Urinary tract infection type: site unspecified Hematuria presence: with hematuria Qualified Code(s): N39.0 - Urinary tract infection, site not specified; R31.9 - Hematuria, unspecified (6) Edema Current Visit: No Status: Chronic Contributing to her morbidity Qualifiers: Edema type: unspecified Qualified Code(s): R60.9 - Edema, unspecified History of Present Illness - Reason for Consult Consult date: 04/29/17 Acute Kidney Injury Requesting physician: Ethan Espino - Chief Complaint DEAN - History of Present Illness Mitchel Wei is a very pleasant morbidly obese WF who was found to have an DEAN, shock liver and hypotension. She was noted to have no prior cable layer in her record. She has no NSAIDs on her med list. Subjective history was largely limited d/t her AMS. Past Med Surg Social Fam HX - Past Medical History Medical history: arthritis, COPD, GERD, hypertension, osteoporosis Psychiatric history: ADHD, depression - Past Surgical History Surgical History: other - Social History Smoking Status: Never smoker Smokeless Tobacco Status: No Alcohol use: none Drug use: none - Family History Mother Living Status: Hx Family Cardiac Disorders: Yes Hx Family Endocrine Disorder: Yes (Diabetes) Medications and Allergies Alendronate Sodium [Fosamax] 70 mg PO QWEEK 02/13/16 [History] Calcium Carb/Vitamin D3/Vit K1 [Calcium + D Soft Chewable Tab] 1 mg PO DAILY 04/22 [History] Citalopram Hydrobromide [Celexa] 20 mg PO DAILY 02/13/16 [History] Fluticasone Propionate Nasal [Flonase] 1 spr NS DAILY PRN 02/13/16 [History] Furosemide [Lasix] 40 mg PO DAILY 02/13/16 [History] Ranitidine HCl [Zantac] 150 mg PO BID 02/13/16 [History] Solifenacin Succinate [Vesicare] 1 mg PO HS 02/13/16 [History] Tolterodine Tartrate [Detrol] 2 mg PO BID 02/13/16 [History] Silver Sulfadiazine [Silvadene] 1 appl TP DAILY #1 tube 02/18/16 [Rx] Amitriptyline [Elavil] 25 mg PO DAILY 04/28/17 [History] DULoxetine [Cymbalta] 30 mg PO BID 04/28/17 [History] HYDROcodone/Acet 7.5/325 mg [[place] 7.5-325 mg] 1 tab PO Q6H 04/28/17 [History] Naproxen [Naprosyn] 500 mg PO BID 04/28/17 [History] Nystatin POWDER [Nystop] 1 appl TP BID 04/28/17 [History] Potassium Chloride [K-Tab ER] 20 meq PO DAILY 04/28/17 [History] Trazodone HCl 100 mg PO BID 04/28/17 [History] 3 Allergy/AdvReac Type Severity Reaction Status Date / Time ibuprofen [From Motrin] AdvReac Nausea Verified 02/13/16 10:46 Review of Systems ROS unobtainable: due to mental status Exam - Vital Signs Vital signs: Initial Vital Signs Pulse 104 04/28/17 11:45 Vital Signs - Last 8 Hours Temp Pulse Resp BP Pulse Ox 04/29/17 08:00 110 20 91/46 93 04/29/17 07:56 99.0 F 04/29/17 07:00 113 22 96/58 92 04/29/17 06:00 110 20 101/65 94 04/29/17 05:00 111 20 105/69 94 04/29/17 04:00 98.9 F 111 20 94/63 94 04/29/17 03:00 112 19 106/62 94 04/29/17 02:00 113 19 113/56 94 Intake and Output 04/28/17 04/29/17 04/29/17 23:59 07:59 15:59 Intake Total 976 / 976 300 / 300 214 / 214 Output Total 0 / 0 35 / 35 Balance 976 / 976 265 / 265 214 / 214 Intake: IV Fluids 976 / 976 300 / 300 214 / 214 Acetadote 15,000 MG In 325 / 325 Dextrose 5% 250 ML @ 250 mls/hr IVC ONCE ONE Rx#: [id number] ALBURX 5% 25 gm In 500 ml 500 / 500 @ Wide Open IVC .Q0M ONE Rx#:[id number] PRECEDEX Premix 400 mcg 200 / 200 In 100 ml @ 0.2 MCG/KG/HR 7.348 mls/hr IVC . [id number] [facility] Rx#: [id number] Calcium Gluconate 1,000 110 / 110 MG In Dextrose 5% 100 ML @ 50 mls/hr IVPB Q6HR PRN Rx#:[id number] Magnesium Sulfate 2 GM In 104 / 104 Dextrose 5% 100 ML @ 50 mls/hr IVPB Q6H PRN Rx#: [id number] Flagyl Premix 500 MG/100 100 / 100 100 / 100 ML 500 mg In 100 ml @ 100 mls/hr IVPB Q8HR [facility] Rx# :[id number] AquaMephyton 5 MG In 0.9 51 / 51 % Sodium Chloride 50 ML @ 100 mls/hr IVPB ONCE ONE Rx#:[id number] Output: Catheter 0 / 0 35 / 35 Other: Blood Glucose* 128 116 - General Appearance General appearance: appears started age, obese, chronically ill, frail EENT: ATNC, PERRL, mucous membranes moist Neck: supple Respiratory: course breath sounds Cardiology: edema, regular rate, normal S1, normal S2 Gastrointestinal: normoactive bowel sounds, no tenderness, no guarding, obese Integumentary: no rash, warm and dry Neurologic: no asterixis Musculoskeletal: no cyanosis, no clubbing Psychiatric: cooperative Results - Lab Results 04/30/17 03:30 04/30/17 03:30 Most recent lab results ABG pH 7.24 pH Units (7.32-7.45) L 04/28/17 23:22 ABG pCO2 41 mmHg (35-45) 04/28/17 23: ABG pO2 109 mmHg (85-104) H 04/28/17 23: ABG HCO3 17.6 mEQ/L (21-27) L 04/28/17 23: ABG O2 Saturation 97 % (95-98) 04/28/17 23: Calcium 7.2 mg/dL (8.6-10.8) L 04/29/17 03:30 Phosphorus 3.9 mg/dL (2.3-4.7) 04/29/17 03:30 Magnesium 1.3 mg/dL (1.6-2.6) L 04/29/17 03:30 I reviewed the above data cornelius and the progress notes, labs, meds, vitals, I/ Os and imaging. Consult Discharge Plan - Plan Referrals: NONE,PCP [Primary Care Provider] -
[2017-04-29] MEDS ORDERED: *HR* Heparin 5,000 UNIT/ML VIAL ONE (09:37)
--- NOTE | 2017-04-29 10:06 | IR Procedure Note ---
Date of procedure: 04/29/17 Consent Obtained: Written consent Timeout: Correct patient and procedure verified, Correct site verified, Time out performed, Skin prep completed Indications: renal failure Procedure Performed: temp HD line Site/Technique: rt IJ Results/Findings: triple lumen catheter in good position Estimated blood loss (cc): 0 Complications: None; Tolerated procedure well Post Procedure Treatment Plan: CXR and then use
[2017-04-29 10:34] LABS: Hepatitis A Antibody IgM Nonreactive (Nonreactive); Hepatitis B Core IgM Nonreactive (Nonreactive); Hepatitis B Surface Antigen Nonreactive (Nonreactive); Hepatitis C Virus Antibody Nonreactive (Nonreactive)
--- NOTE | 2017-04-29 11:32 | Gastroenterology Consult Note ---
<Daniel Monroy - Last Filed: 04/29/17 11:30> Date of Encounter: 04/29/17 Time of Encounter: 10:05 - Assessment and plan (1) Transaminitis Current Visit: Yes Status: Acute Assessment and plan: AST 712 and ALT 217 at [facility]. Today, AST 279 and ALT 202. Likely secondary to ischemia due to sepsis and hypotension. CT A/P with no acute process. Liver ultrasound unremarkable. Hepatitis profile negative. When pt stable, recommend MRCP to rule out obstruction. Recommend monitoring LFTs daily. (2) Sepsis Current Visit: No Status: Acute Assessment and plan: Management per primary team. Patient on IV antibiotics, Levophed, and to start CRRT. Qualifiers: Sepsis type: sepsis due to unspecified organism Qualified Code(s): A41.9 - Sepsis, unspecified organism (3) DEAN (acute kidney injury) Current Visit: Yes Status: Acute Assessment and plan: Patient to start CRRT per nephrology. - Time Spent With Patient Total time spent is greater than 50% in coordination of care (as documented) at patient's floor/unit and/or counseling patient: GI History of Present Illness - Data of Consult Patient: new to practice Consult date: 04/29/17 Requesting Physician: Senait Hughes MD - Consult Narrative Reason for consult: Elevated transaminases, abdominal pain History of present illness: Ms. Wei is a 71 year old female with PMHx of arthritis, COPD, GERD, HTN, Parkinsonism, morbid obesity, CHF, who was transferred from [facility] ED for septic shock. She presented to [facility] ED with complaints of abdominal pain , nausea, and vomiting. Patient had complained of abdominal pain for the past couple of weeks, and stated the nausea and vomiting started a day or 2 before admission. This patient was admitted to the ICU because she was severely hypotensive and not fluid responsive after 4 L of normal saline. CT A/P with no acute process. Liver ultrasound unremarkable. We were consulted to evaluate her elevated transaminases, at [facility] ED AST 712, ALT 217. History obtain through chart review. Procedures: None NSAIDs: None Anticoagulation: None Past Med Surg Social Fam HX - Past Medical History Medical history: arthritis, COPD, GERD, hypertension, osteoporosis Psychiatric history: ADHD, depression - Past Surgical History Surgical History: other - Social History Smoking Status: Never smoker Smokeless Tobacco Status: No Alcohol use: none Drug use: none - Family History Mother Living Status: Hx Family Cardiac Disorders: Yes Hx Family Endocrine Disorder: Yes (Diabetes) ROS unobtainable: due to mental status - Constitutional Vitals: Temp Pulse Resp BP Pulse Ox 99.0 F 112 20 102/48 92 04/29/17 07:56 04/29/17 10:00 04/29/17 10:00 04/29/17 10:00 04/29/17 10:00 General appearance: Present: A&O X 0 - Head Head exam: Present: atraumatic, normocephalic - Eye Eye exam: Present: normal appearance, sclera anicteric - ENT ENT exam: Present: mucous membranes dry - Neck Neck exam general surgery: Present: normal inspection, trachea midline - Respiratory Respiratory exam: Present: decreased breath sounds, CTAB - Cardiovascular Cardiovascular exam: Present: RRR, +S1, +S2 - GI/Abdominal GI/Abdominal exam: Present: soft, no peritoneal signs. Absent: distended, firm , guarding, tenderness - Rectal Rectal exam: Present: deferred - Extremities Exam Extremities exam: Present: warm - Psychiatric Psychiatric exam: Present: normal affect, normal mood - Skin Skin exam: Present: dry, intact, normal color, warm Results - Labs CBC & Chem 7: 04/29/17 03:30 04/29/17 03:30 Labs: Last Result Calcium 7.2 mg/dL (8.6-10.8) L 04/29/17 03:30 Troponin I 0.16 ng/mL (0-0.03) H* 04/28/17 21:00 Salicylates < 5.0 mg/dL (15-30) L 04/28/17 14:37 Urine Opiates Screen Negative ng/mL (Xvevwg=531) 04/28/17 11:29 Entire Visit Hgb 11.5 g/dL (11.5-15.4) 04/29/17 03:30 Hct 35.7 % (35.3-44.9) 04/29/17 03:30 PT 22.6 Seconds (9.4-12.1) H 04/29/17 03:30 Total Bilirubin 3.5 mg/dL (0.2-1.2) H 04/29/17 03:30 AST 279 Units/L (5-34) H 04/29/17 03:30 ALT 202 Units/L (0-55) H 04/29/17 03:30 Ammonia 27 mcmol/L (18-72) 04/29/17 03:30 Lipase < 10 Units/L (8-78) 04/29/17 03:30 Acetaminophen 1.0 mcg/mL (10-30) L 04/28/17 14:37 - ABG ABG results: ABG ABG pH 7.24 pH Units (7.32-7.45) L 04/28/17 23:22 ABG pCO2 41 mmHg (35-45) 04/28/17 23:22 ABG pO2 109 mmHg (85-104) H 04/28/17 23:22 ABG O2 Saturation 97 % (95-98) 04/28/17 23:22 PT/INR, D-dimer PT 22.6 Seconds (9.4-12.1) H 04/29/17 03:30 - Impressions Impressions Liver Ultrasound 04/28/17 00:00 IMPRESSION: Unremarkable right upper quadrant ultrasound. D/ / Primo Gaines MD / Primo Gaines MD Interpreting Provider: Primo Gaines MD Chest X-Ray 04/28/17 15:56 IMPRESSION: A right internal jugular venous catheter has been placed. The tip of the catheter is superimposed on the right lower lobe pulmonary artery. This is likely related to rotation on this portable examination. Follow-up non rotated study or CT examination would be helpful. D/ / Anoop Stock MD / Anoop Stock MD Interpreting Provider: Anoop Stock MD Chest X-Ray 04/28/17 18:08 IMPRESSION: Right internal jugular central venous catheter tip projects over the lower SVC. D/ / Bhupinder Raines MD / Bhupinder Raines MD Interpreting Provider: Bhupinder Raines MD Chest X-Ray 04/29/17 04:00 IMPRESSION: 1. Stable lines and tubes. 2. Worsening left base opacity with pleural effusion, otherwise, stable cardiopulmonary status. D/ / 04/29/2017 07:49:03 Gudelia Valero MD / tiffanie Interpreting Provider: Gudelia Valero MD Chest X-Ray 04/29/17 09:53 IMPRESSION: 1. Interval placement of right IJ hemodialysis catheter with the tip near the cavoatrial junction. No pneumothorax pre 2. Otherwise, stable chest with cardiomegaly and pulmonary edema and possible small pleural effusions. D/ / Ifrah Goodwin MD / Ifrah Goodwin MD Interpreting Provider: Ifrah Goodwin MD Consult Discharge Plan - Plan Referrals: NONE,PCP [Primary Care Provider] - <Paulo Mckeon - Last Filed: 04/29/17 18:05> Date of Encounter: 04/29/17 Time of Encounter: 18:00 - Time Spent With Patient Total time spent is greater than 50% in coordination of care (as documented) at patient's floor/unit and/or counseling patient: GI History of Present Illness - Data of Consult Requesting Physician: Senait Hughes MD - Consult Narrative History of present illness: Ms. Wei is a 71 year old female - Constitutional Vitals: Temp Pulse Resp BP Pulse Ox 96.8 F L 99 20 97/65 98 04/29/17 16:00 04/29/17 17:00 04/29/17 17:00 04/29/17 17:00 04/29/17 17:00 Results - Labs CBC & Chem 7: 04/29/17 03:30 04/29/17 03:30 Labs: Last Result Calcium 7.2 mg/dL (8.6-10.8) L 04/29/17 03:30 Troponin I 0.16 ng/mL (0-0.03) H* 04/28/17 21:00 Salicylates < 5.0 mg/dL (15-30) L 04/28/17 14:37 Urine Opiates Screen Negative ng/mL (Hyatiq=661) 04/28/17 11:29 Entire Visit Hgb 11.5 g/dL (11.5-15.4) 04/29/17 03:30 Hct 35.7 % (35.3-44.9) 04/29/17 03:30 PT 22.6 Seconds (9.4-12.1) H 04/29/17 03:30 Total Bilirubin 3.5 mg/dL (0.2-1.2) H 04/29/17 03:30 AST 279 Units/L (5-34) H 04/29/17 03:30 ALT 202 Units/L (0-55) H 04/29/17 03:30 Ammonia 27 mcmol/L (18-72) 04/29/17 03:30 Lipase < 10 Units/L (8-78) 04/29/17 03:30 Acetaminophen 1.0 mcg/mL (10-30) L 04/28/17 14:37 - ABG ABG results: ABG ABG pH 7.24 pH Units (7.32-7.45) L 04/28/17 23:22 ABG pCO2 41 mmHg (35-45) 04/28/17 23:22 ABG pO2 109 mmHg (85-104) H 04/28/17 23:22 ABG O2 Saturation 97 % (95-98) 04/28/17 23:22 PT/INR, D-dimer PT 22.6 Seconds (9.4-12.1) H 04/29/17 03:30 - Impressions Impressions Liver Ultrasound 04/28/17 00:00 IMPRESSION: Unremarkable right upper quadrant ultrasound. D/ / Primo Gaines MD / Primo Gaines MD Interpreting Provider: Primo Gaines MD Chest X-Ray 04/28/17 18:08 IMPRESSION: Right internal jugular central venous catheter tip projects over the lower SVC. D/ / Bhupinder Raines MD / Bhupinder Raines MD Interpreting Provider: Bhupinder Raines MD Guidance Needle Placement Ultrasound 04/29/17 00:00 IMPRESSION: Successful ultrasound guided non-tunneled right jugular temporary hemodialysis catheter placement. D/ /29/2017 13:04:30 Sarai Quispe MD / lesli Interpreting Provider: Sarai Quispe MD Insertion Non-Tunneled Catheter 04/29/17 00:00 IMPRESSION: Successful ultrasound guided non-tunneled right jugular temporary hemodialysis catheter placement. D/ /29/2017 13:04:30 Sarai Quispe MD / lesli Interpreting Provider: Sarai Quispe MD Chest X-Ray 04/29/17 04:00 IMPRESSION: 1. Stable lines and tubes. 2. Worsening left base opacity with pleural effusion, otherwise, stable cardiopulmonary status. D/ / 04/29/2017 07:49:03 Gudelia Valero MD / [facility] Interpreting Provider: Gudelia Valero MD Chest X-Ray 04/29/17 09:53 IMPRESSION: 1. Interval placement of right IJ hemodialysis catheter with the tip near the cavoatrial junction. No pneumothorax pre 2. Otherwise, stable chest with cardiomegaly and pulmonary edema and possible small pleural effusions. D/ / Ifrah Goodwin MD / Ifrah Goodwin MD Interpreting Provider: Ifrah Goodwin MD Retroperitoneum Ultrasound 04/29/17 10:30 IMPRESSION: No hydronephrosis. No abnormality in the kidneys. D/ / Willi Wilcox MD / Willi Wilcox MD Interpreting Provider: Willi Wilcox MD - Attending Attestation I examined this patient and my medical decision-making was reviewed with the Resident Physician. I agree with the documented findings, disposition and treatment plan as described except to the extent set forth below. Patient with sepsis and has abnormal LFTs. Ultrasound with no CBD dilation US surgically absent, abnormal LFTs are most probably due to shock liver as blood pressure was in the 70s on admission. Recommendation: MRCP to rule out CBD stone.
[2017-04-29] MEDS ORDERED: 0.9 % Sodium Chloride 500 ML ONE (12:13)
[2017-04-29] MEDS: PrismaSATE BGK 4/2.5 5,000 ML CRRT SCH ×6 (12:30→22:19)
--- NOTE | 2017-04-29 12:43 | Palliative - Consult Note ---
Date of Encounter: 04/29/17 Time of Encounter: 11:00 - Assessment and Plan (1) UTI (urinary tract infection) Current Visit: No Status: Acute Assessment and plan: White count is elevated, patient is on antibiotics. Cultures are pending. Qualifiers: Urinary tract infection type: site unspecified Hematuria presence: with hematuria Qualified Code(s): N39.0 - Urinary tract infection, site not specified; R31.9 - Hematuria, unspecified (2) Goals of care, counseling/discussion Current Visit: Yes Status: Acute Assessment and plan: CODE STATUS discussed with the intensive care team. Per family patient wished to be a full code currently she is. Care patient would like to have her enough to go home. Where she does not get around very well, however this is where she wishes to be. Not want to go to a long-term. We will continue to follow. 5 children involved 3 boys 2 girls, daughter Es who the patient lives with the family spokesperson. There are no advanced directives there is no medical power of corporate associate attorney. Es one sister and one brother all assured me that all of the family has been informed and they are in agreement. (3) Abdominal pain Current Visit: No Status: Acute Assessment and plan: Probably secondary to UTI plus colitis. Qualifiers: Abdominal location: unspecified location Qualified Code(s): R10.9 - Unspecified abdominal pain (4) DEAN (acute kidney injury) Current Visit: Yes Status: Acute Assessment and plan: Nephrology is following, patient starts Sintia today. Palliative-CN HPI - Data of Consult Patient: new to practice Requesting Physician: Senait Hughes MD Primary Care Provider: PCP NONE - Consult Narrative Palliative Care/Comfort Measures: Palliative care History of present illness: Ms. Wei is a 71 year old female The patient was transferred from [place] emergency department being in septic shock which is felt to be secondary to this at a urinary tract infection. Is a history of COPD, morbid obesity her UTIs parkinsonism and severe arthritis in her knees. She is essentially bedbound secondary to weakness in her legs and pain in her knees. Last month or so she has been having increasing trouble with abdominal pain and vomiting began 2 nights prior to admission. This was nonbloody yellow-green in color. Complaining about abdominal pain did not describe it in the medical record. Patient is not able to give any history at this time. Further family she has had approximately 10 UTIs in the past year. She denied any blood in her stool or urine. Only sick contact the patient's had was her daughter that had the flu a couple of months ago. Things since. She does suffer from chronic pain due to her arthritis. Care was consulted as the intensive care unit team believes the patient likely have a poor outcome. CC: Senait Hughes MD Abdominal pain Past Med Surg Social Fam HX - Past Medical History Medical history: arthritis, COPD, GERD, hypertension, osteoporosis Psychiatric history: ADHD, depression - Past Surgical History Surgical History: other - Social History Smoking Status: Never smoker Smokeless Tobacco Status: No Alcohol use: none Drug use: none - Family History Mother Living Status: Hx Family Cardiac Disorders: Yes Hx Family Endocrine Disorder: Yes (Diabetes) Medications and Allergies Alendronate Sodium [Fosamax] 70 mg PO QWEEK 02/13/16 [History] Calcium Carb/Vitamin D3/Vit K1 [Calcium + D Soft Chewable Tab] 1 mg PO DAILY 04/22 [History] Citalopram Hydrobromide [Celexa] 20 mg PO DAILY 02/13/16 [History] Fluticasone Propionate Nasal [Flonase] 1 spr NS DAILY PRN 02/13/16 [History] Furosemide [Lasix] 40 mg PO DAILY 02/13/16 [History] Ranitidine HCl [Zantac] 150 mg PO BID 02/13/16 [History] Solifenacin Succinate [Vesicare] 1 mg PO HS 02/13/16 [History] Tolterodine Tartrate [Detrol] 2 mg PO BID 02/13/16 [History] Silver Sulfadiazine [Silvadene] 1 appl TP DAILY #1 tube 02/18/16 [Rx] Amitriptyline [Elavil] 25 mg PO DAILY 04/28/17 [History] DULoxetine [Cymbalta] 30 mg PO BID 04/28/17 [History] HYDROcodone/Acet 7.5/325 mg [Simms 7.5-325 mg] 1 tab PO Q6H 04/28/17 [History] Naproxen [Naprosyn] 500 mg PO BID 04/28/17 [History] Nystatin POWDER [Nystop] 1 appl TP BID 04/28/17 [History] Potassium Chloride [K-Tab ER] 20 meq PO DAILY 04/28/17 [History] Trazodone HCl 100 mg PO BID 04/28/17 [History] 3 Allergy/AdvReac Type Severity Reaction Status Date / Time ibuprofen [From Motrin] AdvReac Nausea Verified 02/13/16 10:46 ROS unobtainable: due to mental status Palliative Care-Exam - Constitutional Vitals: Temp Pulse Resp BP Pulse Ox 97.7 F 105 20 95/47 92 04/29/17 11:54 04/29/17 11:00 04/29/17 11:00 04/29/17 11:00 04/29/17 11:00 General appearance: Present: morbidly obese, no acute distress - Head Head Exam: Present: atraumatic, normal inspection - Eye Eye exam: Present: normal appearance - Neck Neck exam: Absent: normal inspection (Central line right side) - Respiratory Respiratory exam: Present: CTAB - Cardiovascular Cardiovascular exam: Present: RRR - GI/Abdominal Exam GI/Abdominal exam: Present: diminished bowel sounds, soft. Absent: tenderness - Catheter Type: Urethral (Haji) - Extremities Exam Extremities exam: Present: pedal edema. Absent: normal inspection, tenderness - Neurological Exam Neurological exam: Present: altered - Psychiatric Psychiatric exam: Absent: agitated, anxious - Skin Skin exam: Present: dry, warm. Absent: intact (Some breakdown is noted between the legs and buttocks. Also a bedsore on the left odious kenan.) Internal Medicine - CN: Reslt - Labs CBC & Chem 7: 04/29/17 03:30 04/29/17 03:30 Labs: Short CBC 04/28/17 04/29/17 Range/Units 12:00 03:30 WBC 24.1 H (4.3-11.1) K/mcL Hgb 11.5 (11.5-15.4) g/dL Hct 35.7 (35.3-44.9) % Plt Count 84 L (140-400) K/mcL Neutrophils # 17.8 H 22.7 H (1.6-8.9) K/mcL BMP 04/28/17 04/29/17 21:00 03:30 Sodium 137 Potassium 4.6 H 5.0 H Chloride 105 Carbon Dioxide 20 BUN 48 H Creatinine 3.38 H Glucose 101 H Calcium 7.2 L Cardiac Enzymes 04/28/17 04/28/17 Range/Units 14:37 21:00 Troponin I 0.24 H* 0.16 H* (0-0.03) ng/mL Liver Function 04/29/17 Range/Units 03:30 Total Bilirubin 3.5 H (0.2-1.2) mg/dL AST 279 H (5-34) Units/L ALT 202 H (0-55) Units/L Alkaline Phosphatase 67 (38-126) Units/L Albumin 2.5 L (3.5-5.0) g/dL - ABG Interpretation ABG results: ABG ABG pH 7.24 pH Units (7.32-7.45) L 04/28/17 23:22 ABG pCO2 41 mmHg (35-45) 04/28/17 23:22 ABG pO2 109 mmHg (85-104) H 04/28/17 23:22 ABG O2 Saturation 97 % (95-98) 04/28/17 23:22 PT/INR, D-dimer PT 22.6 Seconds (9.4-12.1) H 04/29/17 03:30 - Impressions Impressions Liver Ultrasound 04/28/17 00:00 IMPRESSION: Unremarkable right upper quadrant ultrasound. D/ / Primo Gaines MD / Primo Gaines MD Interpreting Provider: Primo Gaines MD Chest X-Ray 04/28/17 15:56 IMPRESSION: A right internal jugular venous catheter has been placed. The tip of the catheter is superimposed on the right lower lobe pulmonary artery. This is likely related to rotation on this portable examination. Follow-up non rotated study or CT examination would be helpful. D/ / Anoop Stock MD / Anoop Stock MD Interpreting Provider: Anoop Stock MD Chest X-Ray 04/28/17 18:08 IMPRESSION: Right internal jugular central venous catheter tip projects over the lower SVC. D/ / Bhupinder Raines MD / Bhupinder Raines MD Interpreting Provider: Bhupinder Raines MD Chest X-Ray 04/29/17 04:00 IMPRESSION: 1. Stable lines and tubes. 2. Worsening left base opacity with pleural effusion, otherwise, stable cardiopulmonary status. D/ / 04/29/2017 07:49:03 Gudelia Valero MD / tiffanie Interpreting Provider: Gudelia Valero MD Chest X-Ray 04/29/17 09:53 IMPRESSION: 1. Interval placement of right IJ hemodialysis catheter with the tip near the cavoatrial junction. No pneumothorax pre 2. Otherwise, stable chest with cardiomegaly and pulmonary edema and possible small pleural effusions. D/ / Ifrah Goodwin MD / Ifrah Goodwin MD Interpreting Provider: Ifrah Goodwin MD Consult Discharge Plan - Plan Referrals: NONE,PCP [Primary Care Provider] - Palliative Quality Palliative Quality: Screen for Code Status: Yes, Screen for Goals of Care: Yes, Screen for Pain: Yes, If Pain Regimen Started, Initiate Bowel Regimen: Yes, Screen for Nausea/Vomitting: Yes Code Status: 04/28/17 15:03 Resuscitation Status: Active [RES] Routine Comment: Resuscitation Status: Full Code
--- NOTE | 2017-04-29 14:48 | Electrocardiograph Report ---
[place] [id number] Test Date: 2017-04-28 Pat Name: Mitchel Wei Department: 109 Room: [facility] Gender: F Order Planner: : [id number] Requested By: Faviola Motley Order Number: [id number] Reading MD: Adams Branham MD Measurements Intervals [place] Rate: 102 P: 42 VT: 189 QRS: 2 QRSD: 93 T: 62 QT: 330 QTc: 389 Interpretive Statements SINUS TACHYCARDIA Electronically Signed On 04-29-2017 14:46:25 EDT by Adams Branham MD
--- NOTE | 2017-04-29 16:07 | Cardiology Consult Note ---
Date of Encounter: 04/29/17 Time of Encounter: 11:30 Assessment and Plan (1) CHF (congestive heart failure) Current Visit: Yes Status: Acute Patient displays risk factors for CHF including HTN and morbid obesity. Echocardiogram shows an LVEF of 30-35% along with severe LV systolic dysfunction. Patient's chest x-ray shows signs of cardiomegaly and pulmonary edema. Patient's BP range has been from 94/63-104/51. Given patient's state of septic shock, she would not make a good candidate for any cardiac catheterization until she has been stabilized. Recommend supportive therapy for now. Qualifiers: Congestive heart failure type: unspecified congestive heart failure type Congestive heart failure chronicity: acute on chronic Qualified Code(s): I50.9 - Heart failure, unspecified (2) Elevated troponin Current Visit: Yes Status: Acute Patient's EKG shows sinus tachycardia with no signs of ST elevations. Troponin is currently at 0.16. Elevated troponin most likely secondary to patient's sepsis. Discussion w patient/family: The assessment and plan as outlined above was discussed with the patient and/or family members who expressed understanding and agreement. All questions were answered. Thank you for involving us in the care of your patient. Please call with any questions. History of Present Illness Consult date: 04/29/17 Requesting physician: Nikolay Lozada Consult reason: CHF Chief complaint: Abdominal pain History of present illness: Ms. Wei is a 71 year old female with a PMH of COPD, GERD, HTN, morbid obesity , and CHF that presented to the ED for abdominal pain for the past 2 weeks. She has also had been vomiting frequently the day before presenting to the ED on at [facility]. At the ED, she admitted to loss of appetite, nausea, vomiting, and weakness, but denied chest pain diaphoresis, fever, chills, shortness of breath, and syncope. Tropnin was elevated at 0.18. She subsequently developed renal failure and sepsis and was transferred to [place] ICU. She admitted that her vomit was non-bloody, that she has a history of frequent UTIs,a denies any blood in her urine. Patient currently lives with her daughter and has been bed ridden for the past 2 years. An echocardiogram was done and showed an EF of 30-35% with severe LV systolic dysfunction. Chest x- ray showed cardiomegaly with pulmonary edma and possible small effusions. EKG on arrival showed sinus tachycardia. When seen today, patient was unarousable and no family mmember was present at bedside. History was obtained from ICU team. Past Med Surg Social Fam HX - Past Medical History Medical history: arthritis, COPD, GERD, hypertension, osteoporosis Psychiatric history: ADHD, depression - Past Surgical History Surgical History: other - Social History Smoking Status: Never smoker Smokeless Tobacco Status: No Alcohol use: none Drug use: none - Family History Mother Living Status: Hx Family Cardiac Disorders: Yes Hx Family Endocrine Disorder: Yes (Diabetes) Medications and Allergies Alendronate Sodium [Fosamax] 70 mg PO QWEEK 02/13/16 [History] Calcium Carb/Vitamin D3/Vit K1 [Calcium + D Soft Chewable Tab] 1 mg PO DAILY 04/22 [History] Citalopram Hydrobromide [Celexa] 20 mg PO DAILY 02/13/16 [History] Fluticasone Propionate Nasal [Flonase] 1 spr NS DAILY PRN 02/13/16 [History] Furosemide [Lasix] 40 mg PO DAILY 02/13/16 [History] Ranitidine HCl [Zantac] 150 mg PO BID 02/13/16 [History] Solifenacin Succinate [Vesicare] 1 mg PO HS 02/13/16 [History] Tolterodine Tartrate [Detrol] 2 mg PO BID 02/13/16 [History] Silver Sulfadiazine [Silvadene] 1 appl TP DAILY #1 tube 02/18/16 [Rx] Amitriptyline [Elavil] 25 mg PO DAILY 04/28/17 [History] DULoxetine [Cymbalta] 30 mg PO BID 04/28/17 [History] HYDROcodone/Acet 7.5/325 mg [[place] 7.5-325 mg] 1 tab PO Q6H 04/28/17 [History] Naproxen [Naprosyn] 500 mg PO BID 04/28/17 [History] Nystatin POWDER [Nystop] 1 appl TP BID 04/28/17 [History] Potassium Chloride [K-Tab ER] 20 meq PO DAILY 04/28/17 [History] Trazodone HCl 100 mg PO BID 04/28/17 [History] 3 Allergy/AdvReac Type Severity Reaction Status Date / Time ibuprofen [From Motrin] AdvReac Nausea Verified 02/13/16 10:46 ROS unobtainable: other (Patient was unarousable. ) All Systems Review: A 10-system review of systems was performed and is negative for pertinent findings except as documented above in the HPI. Physical Examination Vital Signs, Last 4 Hours Pulse Resp BP Pulse Ox 04/29/17 15:00 98 20 91/57 98 04/29/17 14:00 97 20 110/46 98 04/29/17 13:00 100 20 107/52 98 Neck: Other (Right IJ hemodialysis cathether in place. No bruits detected in L side. ) Cardiac: Normal S1 and S2, No Murmur, Other (Distant heart sounds. Tachy. ) Lungs: Normal Breath Sounds, No Wheeze, Rales, Rhonchi Extremities: No Clubbing, No Cyanosis, Normal Pulses, Other (Severe non-pitting edema of the lower extremeties bilaterally. ) Results 04/29/17 03:30 04/29/17 03:30 Lab Results 04/28/17 04/28/17 04/29/17 21:00 21:00 03:30 WBC 24.1 H Hgb 11.5 Hct 35.7 Plt Count 84 L INR APTT Sodium Potassium 4.6 H Chloride Carbon Dioxide BUN Creatinine Glucose Calcium Magnesium Total Bilirubin AST ALT Alkaline Phosphatase Troponin I 0.16 H* Lipase TSH 04/29/17 04/29/17 04/29/17 03:30 03:30 13:15 WBC Hgb Hct Plt Count INR 2.1 APTT 34.7 Sodium 137 Potassium 5.0 H Chloride 105 Carbon Dioxide 20 BUN 48 H Creatinine 3.38 H Glucose 101 H Calcium 7.2 L Magnesium 1.3 L Total Bilirubin 3.5 H AST 279 H ALT 202 H Alkaline Phosphatase 67 Troponin I Lipase < 10 TSH 1.193 Laboratory Tests 04/28/17 04/28/17 04/28/17 12:00 14:37 21:00 Potassium 4.0 Creatinine 2.71 H Troponin I 0.24 H* 0.16 H* 04/28/17 04/29/17 21:00 03:30 Potassium 4.6 H 5.0 H Creatinine 3.38 H Troponin I - Imaging and Cardiology Chest Xray: report reviewed (Stable chest with cardiomegaly and pulmonary edema and possible small pleural effusions.) Echo: report reviewed (Severe systolic dysfunction. LVEF of 30-35%. Global LV hypokinesis. Mild RV hypokinesis. Mildy dialted LA. No signs of valvular dysfunction. No evidence of pulmonary HTN.) Consult Discharge Plan - Plan Referrals: NONE,PCP [Primary Care Provider] -
[2017-04-29] MEDS ORDERED: *HR* Heparin 5,000 UNIT/ML VIAL SQ SCH (18:00)
[2017-04-29 18:31] LABS: Calcium 7.6 mg/dL (8.6-10.8); Potassium 4.4 mEq/L (3.5-4.5)
[2017-04-29] MEDS ORDERED: Dextrose Gel 15 GM PO PRN ×2 (19:51)
[2017-04-29] MEDS ORDERED: D5% in Water 1,000 ML IVC PRN (19:51)
[2017-04-29] MEDS: *HR* Dextrose 50 % in Water (Syg) 50 ML SYRINGE IVP PRN (20:03)
[2017-04-29] MEDS ORDERED: 0.9 % Sodium Chloride 250 ML ONE (21:42)
[2017-04-30] MEDS: *HR* Dextrose 50 % in Water (Syg) 50 ML SYRINGE IVP PRN (00:17)
[2017-04-30] MEDS ORDERED: Amiodarone Premix 150 MG/100 ML BAG IVPB ONE ×2 (03:46→03:50)
[2017-04-30] MEDS ORDERED: Amiodarone Premix 360 MG/200 ML BAG IVC ONE ×2 (03:59→05:00)
[2017-04-30 04:28] LABS: Basophils # 0.1 K/mcL (0.0-0.2); Basophils % 0.4 %; Eosinophils # 0.1 K/mcL (0.0-0.6); Eosinophils % 0.2 %; Hematocrit 33.3 % (35.3-44.9); Immature Granulocytes % 1.8 % (0-4); Lymphocytes # 0.5 K/mcL (0.6-4.6); Lymphocytes % 1.5 %; Mean Corpuscular Hemoglobin 28.1 pg (28.0-33.3); Mean Corpuscular Volume 84.9 fL (83.0-100.0); Mean Platelet Volume 13.2 fL (9.4-12.4); Monocytes # 1.1 K/mcL (0.0-1.3); Monocytes % 3.1 %; Neutrophils # 32.9 K/mcL (1.6-8.9); Platelet Count 95 K/mcL (140-400); Red Blood Count 3.92 M/mcL (3.82-4.97)
[2017-04-30 04:43] LABS: Anisocytosis 1+ (Not Present); Ionized Calcium 1.06 mmol/L (1.15-1.35); Platelet Estimate Decreased (Normal)
[2017-04-30 04:54] LABS: Magnesium 1.9 mg/dL (1.6-2.6)
[2017-04-30 04:55] LABS: Phosphorous 1.4 mg/dL (2.3-4.7)
--- NOTE | 2017-04-30 04:57 | Event Note ---
Date of Encounter: 04/30/17 Time of Encounter: 04:54 Overnight patient max out on levophed drip with MAP hovering around 62-65. Became tachycardic. EKG showed afib rvr with rate 114-120s. Due to hypotension, patient was given amiodarone 150mg IV bolus and started on amiodarone drip.
[2017-04-30] MEDS: Norepinephrine 4 MG in D5% in Water 250 ML IVC SCH (05:13)
[2017-04-30 05:19] LABS: INR 1.4; Prothrombin Time 15.4 Seconds (9.4-12.1)
[2017-04-30 05:22] LABS: Activated Partial Thrombo Time 42.9 Seconds (26.0-36.0)
[2017-04-30 06:05] LABS: Calcium 7.9 mg/dL (8.6-10.8); Potassium 4.3 mEq/L (3.5-4.5)
[2017-04-30] MEDS: Calcium Gluconate 1,000 MG in D5% in Water 100 ML IVPB PRN (06:21)
--- NOTE | 2017-04-30 06:41 | Pulmonology Progress Note ---
Date of Encounter: 04/30/17 Time of Encounter: 06:41 Assessment and Plan (1) Septic shock Current Visit: Yes Status: Acute I spent 40min of Critical Care time with this patient. It involved decision making of high complexity to assess, manipulate, and support vital organ system failure and/or to prevent further life threatening deterioration of the patient' s condition. The time involved in the performance of separately reportable procedures was not counted toward critical care time. . Management was reviewed during multidisciplinary critical care rounds. Neuropsych: Acute delirium complicated by metabolic encephalopathy. Avoid STRE[employer] depressant medications as able to continue to focus on islam of sleep- wake cycle treatment of underlying medical conditions. She does not display a focal neurological deficit Pulm: Acceptable oxygenation on supplemental NC o2. Mild respiratory insufficiency based upon prior ABG but poor candidate for NIV becacuse of AMS and vomiting I will repeat her ABG this morning to determine if she is compensating appropriately for metabolic demands I suspect she will progressed to requiring intubation. Cards: Shock physiology with MOSF.most c/w distributive shock and now component of Cardiogenic shock based upon ECHO findings and Afib with RVR. She did require increase doses of vasopressor which is acutely likely from the supraventricular tachyarrhythmia we will attempt to start vasopressin and wean down Levophed to off if possible for goal map greater than 60 Continue amiodarone infusion will attempt volume removal today with dialysis cardiology following may need ischemic evaluation if clinical course improves although elevation in troponin (NSTEMI) currently does not appear to reflect ACS FEN-GI: Acute liver insufficiecy. Unclear etiology possibly related to Sepsis. She received empiric N-acetylcysteine for possible APAP overdose although levels were noted to be less than 1. GI has been consulted . The transaminitis is likely secondary to shock physiology however may need MRCP when more stable to rule out CBD stone Renal: DEAN likely prerenal azotemia. Remains Auric requiring continuous renal replacement therapy monitor and replace electrolytes per protocol nephrology following. K+ has normalized with CRRT. ID: Acute Septic Shock likely secondary of unclear etiology but possible intrrabdominal given ongoing pain however CT abd without acute process. White count continues to elevate I have broadened out her antimicrobials to treat for healthcare associated organisms including MRSA and Pseudomonas. Other potential sources include decubitus ulcer possible cellulitis or pneumonia. May need repeat imaging although she does not stable to send to CAT scan at this time so empiric treatment will be continued cultures thus far remain negative Heme/Onc: Thrombocytopenia mild coagulopathy H/H stable. No overt signs of bleeding. SCDs for DVT prophylaxis for now. Fibrinogen low normal (102) no overt evidence of bleeding to suggest DIC but will follow closely. Vitamin K given. Endo: Glucose Monitored has had periods of hypoglycemia monitor may need Dextrose infusion. Integ/MSK: Skin Care per routine ICU Nursing Protocol to prevent ulcers. She has a stage II decubitus ulcer and gluteal skin tear which is being managed by a nursing team Lines: All lines examined without evidence of infection including: right CVC Dispo: Remains critically ill. CODE: Full Code patient and family updated at bedside. Palliative Care Consulted appreciate Recs. . (2) Edema Current Visit: No Status: Chronic Qualifiers: Edema type: unspecified Qualified Code(s): R60.9 - Edema, unspecified (3) Abdominal pain Current Visit: No Status: Acute Qualifiers: Abdominal location: unspecified location Qualified Code(s): R10.9 - Unspecified abdominal pain (4) Decubitus ulcer Current Visit: No Status: Acute Qualifiers: Pressure ulcer location: unspecified location Pressure ulcer stage: stage 2 Qualified Code(s): L89.92 - Pressure ulcer of unspecified site, stage 2 (5) Sepsis Current Visit: No Status: Acute Qualifiers: Sepsis type: sepsis due to unspecified organism Qualified Code(s): A41.9 - Sepsis, unspecified organism (6) Renal failure Current Visit: No Status: Acute Qualifiers: Chronic kidney disease stage: unspecified stage Qualified Code(s): N18.9 - Chronic kidney disease, unspecified (7) Elevated troponin I level Current Visit: No Status: Acute (8) Transaminitis Current Visit: Yes Status: Acute (9) DVT prophylaxis Current Visit: Yes Status: Acute (10) Acute liver failure Current Visit: Yes Status: Acute Qualifiers: Hepatic coma status: without hepatic coma Qualified Code(s): K72.00 - Acute and subacute hepatic failure without coma (11) CHF (congestive heart failure) Current Visit: Yes Status: Acute Qualifiers: Congestive heart failure type: unspecified congestive heart failure type Congestive heart failure chronicity: acute on chronic Qualified Code(s): I50.9 - Heart failure, unspecified (12) Goals of care, counseling/discussion Current Visit: Yes Status: Acute (13) Acute respiratory failure with hypoxia and hypercarbia Current Visit: Yes Status: Acute (14) Atrial fibrillation with RVR Current Visit: Yes Status: Acute Subjective Principal diagnosis: Septic shock Interval history: She had increasing vasopressor requirements overnight which was felt secondary to atrial fibrillation with rapid ventricular response prompting administration of amiodarone. 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 she continues to moan and howl intermittently of abdominal pain Objective PUL Vital signs: Last Vital Signs Temp 99.2 F 04/30/17 04:00 Pulse 113 04/30/17 06:00 Resp 28 04/30/17 06:00 BP 106/62 04/30/17 06:00 Pulse Ox 95 04/30/17 06:00 General appearance: agitated, appears uncomfortable Eyes: nonicteric ENT: oropharynx dry Neck: supple Effort: mildly labored Auscultation: bilateral: diminished breath sounds, rales Cardiovascular: irregular rhythm Gastrointestinal: hypoactive bowel sounds, soft, tender, guarding Integumentary: erythema, decubitus ulcer Extremities: edema, other (Chronic skin changes of lymphadenopathy) non-focal exam, pupils equal and round anxious, tearful Results - Laboratory Findings CBC and BMP: 04/30/17 03:30 04/30/17 03:30 ABG ABG pH 7.24 pH Units (7.32-7.45) L 04/28/17 23:22 ABG pCO2 41 mmHg (35-45) 04/28/17 23:22 ABG pO2 109 mmHg (85-104) H 04/28/17 23:22 ABG O2 Saturation 97 % (95-98) 04/28/17 23:22 PT/INR, D-dimer PT 15.4 Seconds (9.4-12.1) H 04/30/17 04:55 Abnormal lab findings: Abnormal lab results WBC 35.4 K/mcL (4.3-11.1) H* 04/30/17 03:30 Hgb 11.0 g/dL (11.5-15.4) L 04/30/17 03:30 Hct 33.3 % (35.3-44.9) L 04/30/17 03:30 RDW 17.0 % (11.5-14.5) H 04/30/17 03:30 Plt Count 95 K/mcL (140-400) L 04/30/17 03:30 MPV 13.2 fL (9.4-12.4) H 04/30/17 03:30 Band Neutrophils % 22.0 % (0-4) H 04/29/17 03:30 Metamyelocytes % 5.0 % (0) H 04/28/17 12:00 Myelocytes % 1.0 % (0) H 04/28/17 12:00 Neutrophils # 32.9 K/mcL (1.6-8.9) H 04/30/17 03:30 Lymphocytes # 0.5 K/mcL (0.6-4.6) L 04/30/17 03:30 Toxic Vacuolation Present (Not Present) A 04/29/17 03:30 Dohle Bodies Present (Not Present) A 04/29/17 03:30 Platelet Estimate Decreased (Normal) L 04/30/17 03:30 Immature Plt Fraction 15.5 % (1.1-6.1) H 04/29/17 03:30 Anisocytosis 1+ (Not Present) A 04/30/17 03:30 PT 15.4 Seconds (9.4-12.1) H 04/30/17 04:55 APTT 42.9 Seconds (26.0-36.0) H 04/30/17 04:55 Fibrinogen 102 mg/dL (169-393) L 04/29/17 03:30 ABG pH 7.24 pH Units (7.32-7.45) L 04/28/17 23:22 ABG pO2 109 mmHg (85-104) H 04/28/17 23:22 ABG HCO3 17.6 mEQ/L (21-27) L 04/28/17 23:22 ABG Total CO2 18.9 mEq/L (20-26) L 04/28/17 23:22 ABG Base Excess -9.3 mEq/L (-2.0 to 3.0) L 04/28/17 23:22 BUN 28 mg/dL (7-20) H D 04/30/17 03:30 Creatinine 1.91 mg/dL (0.57-1.11) H 04/30/17 03:30 Est GFR ( Amer) 32 (> 60) L 04/30/17 03:30 Est GFR (Non-Af Amer) 26 (> 60) L 04/30/17 03:30 Glucose 67 mg/dL (70-99) L 04/30/17 03:30 Calcium 7.9 mg/dL (8.6-10.8) L 04/30/17 03:30 Ionized Calcium 1.06 mmol/L (1.15-1.35) L 04/30/17 03:30 Phosphorus 1.4 mg/dL (2.3-4.7) L D 04/30/17 03:30 Total Bilirubin 3.5 mg/dL (0.2-1.2) H 04/29/17 03:30 AST 279 Units/L (5-34) H 04/29/17 03:30 ALT 202 Units/L (0-55) H 04/29/17 03:30 Troponin I 0.16 ng/mL (0-0.03) H* 04/28/17 21:00 Serum Total Protein 5.5 g/dL (6.0-8.3) L 04/29/17 03:30 Albumin 2.5 g/dL (3.5-5.0) L 04/29/17 03:30 Albumin/Globulin Ratio 0.8 (1.1-2.2) L 04/29/17 03:30 Salicylates < 5.0 mg/dL (15-30) L 04/28/17 14:37 Acetaminophen 1.0 mcg/mL (10-30) L 04/28/17 14:37 - Clinical Findings Intake & Output: Intake & Output 04/29/17 04/29/17 04/30/17 15:59 23:59 07:59 Intake Total 1763 / 1764 365 / 365 390 / 390 Output Total 0 / 0 371 / 371 606 / 606 Balance 1763 / 1763 -6 / -6 -216 / -216 - VTE Documentation of Mechanical Device: Venous foot pump, device Consult Discharge Plan - Plan Referrals: NONE,PCP [Primary Care Provider] -
[2017-04-30] MEDS: Magnesium Sulfate 2 GM in D5% in Water 100 ML IVPB PRN (06:44)
[2017-04-30] MEDS ORDERED: Vancomycin 2,000 MG in D5% in Water 500 ML IVPB ONE (07:00)
[2017-04-30] MEDS ORDERED: Vancomycin 2,000 MG in D5% in Water 250 ML IVPB SCH (07:00)
[2017-04-30] MEDS ORDERED: Norepinephrine 8 MG in D5% in Water 250 ML IVC SCH (07:30)
[2017-04-30] MEDS ORDERED: *HR* FentaNYL (PF) 100 MCG/2 ML VIAL IVP PRN (07:32)
[2017-04-30] MEDS: Piperacillin/Tazobactam 3.375 GM in D5% in Water (Mini-Bag+) 100 ML IVPB SCH ×2 (08:06→16:28)
[2017-04-30] MEDS: Pantoprazole 40 MG VIAL IVP SCH (08:06)
[2017-04-30] MEDS: Norepinephrine 8 MG in D5% in Water 250 ML IVC SCH ×2 (08:09→16:57)
[2017-04-30 08:44] LABS: ABG HCO3 24.3 mEQ/L (21-27); ABG Oxygen Saturation 92 % (95-98); ABG PCO2 42 mmHg (35-45); ABG PH 7.37 pH Units (7.32-7.45); ABG PO2 65 mmHg (85-104); ABG TCO2 25.6 mEq/L (20-26); Blood Gas FiO2 28 %; Blood Gas Liter Flow 2 L/MIN
[2017-04-30 08:57] LABS: Albumin 2.1 g/dL (3.5-5.0); Albumin/Globulin Ratio 0.8 (1.1-2.2); Bilirubin,Direct 2.3 mg/dL (0.0-0.5); Bilirubin,Indirect 0.7 mg/dL (0.0-1.2); Globulin 2.8 g/dL (2.4-3.5); Total Protein 4.9 g/dL (6.0-8.3)
--- NOTE | 2017-04-30 08:58 | Nephrology Progress Note ---
Date of Encounter: 04/30/17 Time of Encounter: 08:50 - Assessment and Plan (1) DEAN (acute kidney injury) Current Visit: Yes Status: Acute Continue CVVHDF but without any fluid removal d/t the development of AF with RVR. Cont 4K/2.5Ca 1250mL/hr on Dialysate and Replacement fluid. D/t relatively poor hemodynamics, this suggests a more challenging prognosis, which I discussed with the pt's daughter. Meanwhile, continue CVVHDF as tolerated with a low BFR at 100mL/hr d/t the above BP/HR issue and without citrate/calcium gtt d/t shock liver. My colleague Dr. Das will be on-call tomorrow, and I will provide a very thorough sign-out/hand-off. (2) Septic shock Current Visit: Yes Status: Acute As per primary (3) Transaminitis Current Visit: Yes Status: Acute Most likely d/t shock liver (4) Sepsis Current Visit: No Status: Acute Followed by ICU team. Qualifiers: Sepsis type: sepsis due to unspecified organism Qualified Code(s): A41.9 - Sepsis, unspecified organism (5) UTI (urinary tract infection) Current Visit: No Status: Acute As per primary Qualifiers: Urinary tract infection type: site unspecified Hematuria presence: with hematuria Qualified Code(s): N39.0 - Urinary tract infection, site not specified; R31.9 - Hematuria, unspecified (6) Edema Current Visit: No Status: Chronic Contributing to her morbidity Qualifiers: Edema type: unspecified Qualified Code(s): R60.9 - Edema, unspecified Subjective Principal diagnosis: Septic shock Interval history: She was seen/examined earlier today. Her family member was present. The pt did not affirm new major complaints. Objective - Vital Signs Vital signs: Vital Signs Temp Pulse Resp BP Pulse Ox 04/30/17 08:00 98.8 F 103 20 88/58 94 04/30/17 07:00 108 24 101/89 94 04/30/17 06:00 113 28 106/62 95 04/30/17 05:00 108 22 82/47 96 04/30/17 04:00 99.2 F 114 28 84/60 94 04/30/17 03:00 104 22 99/50 95 04/30/17 02:00 103 16 81/45 95 04/30/17 01:00 101 24 97/39 96 04/30/17 00:00 97.8 F 98 20 92/55 97 04/29/17 23:00 100 20 103/49 97 04/29/17 22:00 97.9 F 100 20 93/59 97 04/29/17 21:07 92 16 101/58 96 04/29/17 20:00 94.5 F L 89 20 100/54 96 04/29/17 19:00 93 24 101/80 98 04/29/17 18:00 97 20 127/99 97 04/29/17 17:00 99 20 97/65 98 04/29/17 16:00 96.8 F L 98 20 113/53 98 04/29/17 15:00 98 20 91/57 98 04/29/17 14:00 97 20 110/46 98 04/29/17 13:00 100 20 107/52 98 04/29/17 12:00 100 20 113/70 97 04/29/17 11:54 97.7 F 04/29/17 11:00 105 20 95/47 92 04/29/17 10:00 112 20 102/48 92 04/29/17 09:00 109 20 104/51 92 Intake and Output 04/29/17 04/30/17 04/30/17 23:59 07:59 15:59 Intake Total 365 / 365 565 / 565 Output Total 540 / 540 651 / 651 117 / 117 Balance -175 / -175 -86 / -86 -117 / -117 Intake: IV Fluids 320 / 320 565 / 565 Levophed 4 MG In Dextrose 110 / 110 365 / 365 5% 250 ML @ 5 MCG/MIN 18 .75 mls/hr IVC CONT JENNA Rx#:[id number] Amiodarone Premix 150mg/ 100 / 100 100mL 150 mg In 100 ml @ 300 mls/hr IVPB ONCE ONE Rx#:[id number] Calcium Gluconate 1,000 110 / 110 MG In Dextrose 5% 100 ML @ 50 mls/hr IVPB Q6HR PRN Rx#:[id number] Flagyl Premix 500 MG/100 100 / 100 100 / 100 ML 500 mg In 100 ml @ 100 mls/hr IVPB Q8HR [facility] Rx# :[id number] Other 45 / 45 Output: Urine 0 / 0 0 / 0 Urethral (Haji) 0 / 0 0 / 0 Sintia 520 / 520 646 / 646 117 / 117 Catheter 5 / 5 0 / 0 Other: Blood Glucose* 87 88 92 - General Appearance Exam: General appearance: appears started age, obese, chronically ill, frail EENT: ATNC, PERRL, mucous membranes moist Neck: supple Respiratory: course breath sounds Cardiology: edema, regular rate, normal S1, normal S2 Gastrointestinal: normoactive bowel sounds, no tenderness, no guarding, obese Integumentary: no rash, warm and dry Neurologic: no asterixis Musculoskeletal: no cyanosis, no clubbing Psychiatric: cooperative - Lab 04/30/17 03:30 04/30/17 03:30 Most recent lab results ABG pH 7.37 pH Units (7.32-7.45) 04/30/17 08:31 ABG pCO2 42 mmHg (35-45) 04/30/17 08:31 ABG pO2 65 mmHg (85-104) L 04/30/17 08:31 ABG HCO3 24.3 mEQ/L (21-27) 04/30/17 08:31 ABG O2 Saturation 92 % (95-98) L 04/30/17 08:31 Calcium 7.9 mg/dL (8.6-10.8) L 04/30/17 03:30 Phosphorus 1.4 mg/dL (2.3-4.7) L D 04/30/17 03:30 Magnesium 1.9 mg/dL (1.6-2.6) 04/30/17 03:30 Urine Creatinine 57 mg/dL 04/29/17 23:05 Urine Sodium 88.0 mEq/L 04/29/17 23:05 - VTE Documentation of Mechanical Device: Venous foot pump, device Consult Discharge Plan - Plan Referrals: NONE,PCP [Primary Care Provider] -
[2017-04-30] MEDS: Vasopressin 40 UNIT in D5% in Water 100 ML IV SCH (09:28)
[2017-04-30] MEDS: *HR* FentaNYL (PF) 100 MCG/2 ML VIAL IVP PRN ×6 (10:15→21:54)
[2017-04-30] MEDS: PrismaSATE BGK 4/2.5 5,000 ML CRRT SCH ×6 (10:40→19:51)
[2017-04-30] MEDS ORDERED: Amiodarone Premix 360 MG/200 ML BAG IVC SCH (11:00)
--- NOTE | 2017-04-30 12:25 | Cardiology Progress Note ---
Date of Encounter: 04/30/17 Time of Encounter: 09:30 Assessment and Plan (1) Sinus tachycardia Current Visit: Yes Status: Acute Telemetry was reviewed for last night and there were no signs of atrial fibrillation. EKG reviewed from today also does not show any signs of atrial fibrillation and is more consistent with sinus tachycardia. Recommend to stop amiodarone. (2) CHF (congestive heart failure) Current Visit: Yes Status: Acute Patient displays risk factors for CHF including HTN and morbid obesity. Echocardiogram shows an LVEF of 30-35% along with severe LV systolic dysfunction. Patient's chest x-ray shows signs of cardiomegaly and pulmonary edema. Patient's BP range has been from 81/45-106/62. Given patient's state of septic shock, she would not make a good candidate for any cardiac catheterization until she has been stabilized. I do not recommend blanquita-I or BB given patient's RF and hypotension. I do not recommend statin given elevated liver enzymes. Recommend only aspirin and supportive therapy for now. Qualifiers: Congestive heart failure type: unspecified congestive heart failure type Congestive heart failure chronicity: acute on chronic Qualified Code(s): I50.9 - Heart failure, unspecified (3) Elevated troponin Current Visit: Yes Status: Acute Patient's EKG shows sinus tachycardia with no signs of ST elevations. Latest troponin was at 0.16. Elevated troponin most likely secondary to patient's sepsis. Discussion w patient/family: The assessment and plan as outlined above was discussed with the patient and/or family members who expressed understanding and agreement. All questions were answered. Thank you for involving us in the care of your patient. Please call with any questions. Subjective Principal diagnosis: Septic shock Interval history: Patient denies any chest pain, nausea, vomiting, shortness of breath, dizziness , or abdominal pain. Patient's family was able to provide more information today stating that they have tried to get the patient enrolled into a chcf, but she has refused adamantly. Patient also had an overnight event where her MAP dropped to around 62-65 and went into A-Fib rvr with a rate of 114-120. She is currently on amiodorone. Objective Vital Signs, Last 4 Hours Pulse Resp BP Pulse Ox 04/30/17 11:00 90 20 114/65 97 04/30/17 10:00 99 20 121/67 97 04/30/17 09:00 99 20 80/36 97 General: Conversant Cardiac: Normal S1 and S2, No Murmur, Other (Tachycardic. ) Lungs: Normal Breath Sounds, No Wheeze, Rales, Rhonchi Abdomen: Soft, Non-Tender Musculoskeletal: No Chest Wall Tenderness Extremities: Other (Edema of lower extremeites bilaterally. ) Other: Patient was able to be aroused to talk today and seems to be doing alot better than yesterday. She was alert and oriented x 3 and able to answer my questions. Results 04/30/17 03:30 04/30/17 03:30 Lab Results 04/29/17 04/29/17 04/30/17 13:15 18:00 03:30 WBC Hgb Hct Plt Count INR APTT Sodium 137 139 Potassium 4.4 4.3 Chloride 104 105 Carbon Dioxide 21 23 BUN 41 H 28 H D Creatinine 2.90 H 1.91 H Glucose 73 67 L Calcium 7.6 L 7.9 L Magnesium 1.9 Total Bilirubin 3.0 H AST 156 H ALT 171 H Alkaline Phosphatase 139 H TSH 1.193 04/30/17 04/30/17 03:30 04:55 WBC 35.4 H* Hgb 11.0 L Hct 33.3 L Plt Count 95 L INR 1.4 APTT 42.9 H Sodium Potassium Chloride Carbon Dioxide BUN Creatinine Glucose Calcium Magnesium Total Bilirubin AST ALT Alkaline Phosphatase TSH - EKG Interpretation EKG results cardiology: personally reviewed (04/30/17 at 0354: EKG displays regular R intervals with a PVC evident in V4-V6. I am not convinced that this is A-Fib and looks more likely to be sinus tachycardia.) - VTE Documentation of Mechanical Device: Venous foot pump, device Consult Discharge Plan - Plan Referrals: NONE,PCP [Primary Care Provider] -
[2017-04-30] MEDS: *HR* Heparin 5,000 UNIT/ML VIAL IV PRN ×2 (12:37→21:32)
--- NOTE | 2017-04-30 14:16 | Event Note ---
Date of Encounter: 04/30/17 Time of Encounter: 14:14 Arterial line was attempted 2 under sterile conditions. Using ultrasound guidance the left side was first attempted left radial approach and artery was visualized under ultrasound I was able to place a guidewire in the artery but could not be advanced because of underlying arterial sclerosis and procedure was aborted patient had a small hematoma subsequently right radial approach and was visualized under ultrasound I was able to pass a wire in her artery a very minimal distance and was stopped because of underlying arteriosclerotic changes this is complicated by some bleeding which required maintenance of pressure for 10 minutes and there was a resultant small hematoma patient appears to be neurovascularly intact in both distal upper extremities after procedures.
[2017-04-30] MEDS: Hydrocortisone Sodium Succ 100 MG/2 ML VIAL IVP SCH (15:19)
[2017-04-30] MEDS: *HR* Heparin 5,000 UNIT/ML VIAL SQ SCH ×2 (15:19→21:32)
[2017-04-30] MEDS: Sodium Phosphate 30 MMOL in D5% in Water 100 ML IVPB PRN (15:20)
--- NOTE | 2017-04-30 17:47 | Electrocardiograph Report ---
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
[2017-04-30] MEDS ORDERED: Vancomycin 1,000 MG in D5% in Water 250 ML IVPB ONE (18:00)
[2017-04-30] MEDS: Dexmedetomidine HCl 400 MCG/100 ML MLS IVC SCH ×2 (19:52→20:30)
[2017-04-30] MEDS ORDERED: *HR* Heparin 5,000 UNIT/ML VIAL ONE (20:07)
[2017-05-01] MEDS: PrismaSATE BGK 4/2.5 5,000 ML CRRT SCH ×10 (00:19→21:16)
[2017-05-01] MEDS: Piperacillin/Tazobactam 3.375 GM in D5% in Water (Mini-Bag+) 100 ML IVPB SCH ×4 (00:21→23:38)
[2017-05-01] MEDS: Hydrocortisone Sodium Succ 100 MG/2 ML VIAL IVP SCH ×4 (00:21→23:39)
[2017-05-01] MEDS: *HR* FentaNYL (PF) 100 MCG/2 ML VIAL IVP PRN ×5 (01:11→21:50)
[2017-05-01] MEDS: Dexmedetomidine HCl 400 MCG/100 ML MLS IVC SCH ×2 (01:59→19:30)
[2017-05-01 03:26] LABS: Ionized Calcium 1.07 mmol/L (1.15-1.35)
[2017-05-01 03:31] LABS: INR 1.1; Prothrombin Time 11.7 Seconds (9.4-12.1)
[2017-05-01 03:34] LABS: Activated Partial Thrombo Time 47.2 Seconds (26.0-36.0); Calcium 7.9 mg/dL (8.6-10.8); Magnesium 2.1 mg/dL (1.6-2.6); Potassium 4.4 mEq/L (3.5-4.5)
[2017-05-01] MEDS: Vasopressin 40 UNIT in D5% in Water 100 ML IV SCH ×2 (04:18→23:39)
[2017-05-01] MEDS ORDERED: *HR* Heparin 5,000 UNIT/ML VIAL ONE (04:25)
[2017-05-01] MEDS: Norepinephrine 8 MG in D5% in Water 250 ML IVC SCH (04:31)
[2017-05-01] MEDS: *HR* Heparin 5,000 UNIT/ML VIAL SQ SCH ×3 (05:13→21:18)
[2017-05-01] MEDS: Sodium Phosphate 30 MMOL in D5% in Water 100 ML IVPB PRN (05:13)
[2017-05-01] MEDS: Calcium Gluconate 1,000 MG in D5% in Water 100 ML IVPB PRN (05:13)
--- NOTE | 2017-05-01 06:31 | Pulmonology Progress Note ---
Date of Encounter: 05/01/17 Time of Encounter: 06:31 Assessment and Plan (1) Septic shock Current Visit: Yes Status: Acute Management was reviewed during multidisciplinary critical care rounds. Neuropsych: Acute delirium complicated by metabolic encephalopathy. Avoid [employer] depressant medications as able to continue to focus on bahai of sleep- wake cycle treatment of underlying medical conditions. She does not display a focal neurological deficit. We have been giving her intermittent small boluses of narcotic for pain and this appears to be mitigating her symptoms. Pulm: Acceptable oxygenation on supplemental NC o2. Mild respiratory insufficiency. Still has acceptable oxygenation on nasal cannula O2 ABG stable yesterday no clinical change in respiratory status over last 24 hours continue to monitor Cards: Shock physiology with MOSF.most c/w distributive shock and possible adrenal insufficiency stress esters discharge yesterday for need for 2 vasopressors with increasing doses and there has been marketed improvement over last 24 hours since this has been instituted. 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 Additionally she had an STEMI which is likely demand ischemia but echo was notable for reduced ejection fraction although no prior echocardiogram for comparison. She will need ischemic evaluation once more stabilized current presentation not consistent with acute coronary syndrome. FEN-GI: Acute liver insufficiecy. Unclear etiology possibly related to Sepsis. She received empiric N-acetylcysteine for possible APAP overdose although levels were noted to be less than 1. GI has been consulted . The transaminitis is likely secondary to shock physiology however may need MRCP when more stable to rule out CBD stone. Renal: DEAN likely prerenal azotemia. Remains Auric requiring continuous renal replacement therapy monitor and replace electrolytes per protocol nephrology following. K+ has normalized with CRRT. Albumin started for anasarca with albumin less than 2.5 Appreciate nephrology following this patient. We will continue to follow a nephro protective strategy ID: Acute Septic Shock likely secondary of unclear etiology but possible intrrabdominal vs UTI. Continue Zosyn and vancomycin which is not dosed for her continuous renal replacement/kidney injury Heme/Onc: Thrombocytopenia mild coagulopathy H/H stable. No overt signs of bleeding. SCDs for DVT prophylaxis for now. Fibrinogen low normal (102) no overt evidence of bleeding to suggest DIC but will follow closely. Vitamin K given. Endo: Glucose Monitored and stable. She is receiving stress dose hydrocortisone for shock Integ/MSK: Skin Care per routine ICU Nursing Protocol to prevent ulcers. She has a stage II decubitus ulcer and gluteal skin tear which is being managed by a nursing team Lines: All lines examined without evidence of infection including: right CVC Dispo: Remain in ICU today once she can be transitioned to intermittent hemodialysis she can be moved out of the ICU CODE: Full Code patient and family updated at bedside. Palliative Care Consulted appreciate Recs. . (2) Edema Current Visit: No Status: Chronic Qualifiers: Edema type: unspecified Qualified Code(s): R60.9 - Edema, unspecified (3) Abdominal pain Current Visit: No Status: Acute Qualifiers: Abdominal location: unspecified location Qualified Code(s): R10.9 - Unspecified abdominal pain (4) Decubitus ulcer Current Visit: No Status: Acute Qualifiers: Pressure ulcer location: unspecified location Pressure ulcer stage: stage 2 Qualified Code(s): L89.92 - Pressure ulcer of unspecified site, stage 2 (5) Sepsis Current Visit: No Status: Acute Qualifiers: Sepsis type: sepsis due to unspecified organism Qualified Code(s): A41.9 - Sepsis, unspecified organism (6) Renal failure Current Visit: No Status: Acute Qualifiers: Chronic kidney disease stage: unspecified stage Qualified Code(s): N18.9 - Chronic kidney disease, unspecified (7) Elevated troponin I level Current Visit: No Status: Acute (8) Transaminitis Current Visit: Yes Status: Acute (9) DVT prophylaxis Current Visit: Yes Status: Acute (10) Acute liver failure Current Visit: Yes Status: Acute Qualifiers: Hepatic coma status: without hepatic coma Qualified Code(s): K72.00 - Acute and subacute hepatic failure without coma (11) CHF (congestive heart failure) Current Visit: Yes Status: Acute Qualifiers: Congestive heart failure type: unspecified congestive heart failure type Congestive heart failure chronicity: acute on chronic Qualified Code(s): I50.9 - Heart failure, unspecified (12) Goals of care, counseling/discussion Current Visit: Yes Status: Acute (13) Acute respiratory failure with hypoxia and hypercarbia Current Visit: Yes Status: Acute (14) Atrial fibrillation with RVR Current Visit: Yes Status: Acute Subjective Principal diagnosis: Septic shock Interval history: Patient has made significant improvement last 24 hours she has been weaned off vasopressor after institution of stress dose steroids and modification of antimicrobial regimen. She remains confused but much more comfortable and more appropriate. Objective PUL Vital signs: Last Vital Signs Temp 96.6 F L 05/01/17 04:00 Pulse 60 05/01/17 06:00 Resp 16 05/01/17 06:00 BP 96/64 05/01/17 06:00 Pulse Ox 94 05/01/17 06:00 General appearance: no acute distress Auscultation: bilateral: diminished breath sounds Cardiovascular: regular rate and rhythm Gastrointestinal: normoactive bowel sounds, hypoactive bowel sounds, soft, other (Her abdomen is much less tender to palpation today than yesterday) Extremities: anasarca, other (She has palpable radial pulses bilaterally small area of hematoma formation status post attempted arterial line placement) Results - Laboratory Findings CBC and BMP: 05/01/17 09:55 05/01/17 03:10 ABG ABG pH 7.37 pH Units (7.32-7.45) 04/30/17 08:31 ABG pCO2 42 mmHg (35-45) 04/30/17 08:31 ABG pO2 65 mmHg (85-104) L 04/30/17 08:31 ABG O2 Saturation 92 % (95-98) L 04/30/17 08:31 PT/INR, D-dimer PT 11.7 Seconds (9.4-12.1) 05/01/17 03:10 Abnormal lab findings: Abnormal lab results WBC 35.4 K/mcL (4.3-11.1) H* 04/30/17 03:30 Hgb 11.0 g/dL (11.5-15.4) L 04/30/17 03:30 Hct 33.3 % (35.3-44.9) L 04/30/17 03:30 RDW 17.0 % (11.5-14.5) H 04/30/17 03:30 Plt Count 95 K/mcL (140-400) L 04/30/17 03:30 MPV 13.2 fL (9.4-12.4) H 04/30/17 03:30 Band Neutrophils % 22.0 % (0-4) H 04/29/17 03:30 Metamyelocytes % 5.0 % (0) H 04/28/17 12:00 Myelocytes % 1.0 % (0) H 04/28/17 12:00 Neutrophils # 32.9 K/mcL (1.6-8.9) H 04/30/17 03:30 Lymphocytes # 0.5 K/mcL (0.6-4.6) L 04/30/17 03:30 Toxic Vacuolation Present (Not Present) A 04/29/17 03:30 Dohle Bodies Present (Not Present) A 04/29/17 03:30 Platelet Estimate Decreased (Normal) L 04/30/17 03:30 Immature Plt Fraction 15.5 % (1.1-6.1) H 04/29/17 03:30 Anisocytosis 1+ (Not Present) A 04/30/17 03:30 APTT 47.2 Seconds (26.0-36.0) H 05/01/17 03:10 Fibrinogen 102 mg/dL (169-393) L 04/29/17 03:30 ABG pO2 65 mmHg (85-104) L 04/30/17 08:31 ABG O2 Saturation 92 % (95-98) L 04/30/17 08:31 Creatinine 1.38 mg/dL (0.57-1.11) H 05/01/17 03:10 Est GFR ( Amer) 46 (> 60) L 05/01/17 03:10 Est GFR (Non-Af Amer) 38 (> 60) L 05/01/17 03:10 Glucose 121 mg/dL (70-99) H 05/01/17 03:10 POC Glucose 115 (58-89) H 05/01/17 04:01 Calcium 7.9 mg/dL (8.6-10.8) L 05/01/17 03:10 Ionized Calcium 1.07 mmol/L (1.15-1.35) L 05/01/17 03:10 Phosphorus 2.0 mg/dL (2.3-4.7) L 05/01/17 03:10 Total Bilirubin 3.0 mg/dL (0.2-1.2) H 04/30/17 03:30 Direct Bilirubin 2.3 mg/dL (0.0-0.5) H 04/30/17 03:30 AST 156 Units/L (5-34) H 04/30/17 03:30 ALT 171 Units/L (0-55) H 04/30/17 03:30 Alkaline Phosphatase 139 Units/L (38-126) H 04/30/17 03:30 Troponin I 0.16 ng/mL (0-0.03) H* 04/28/17 21:00 Serum Total Protein 4.9 g/dL (6.0-8.3) L 04/30/17 03:30 Albumin 2.1 g/dL (3.5-5.0) L 04/30/17 03:30 Albumin/Globulin Ratio 0.8 (1.1-2.2) L 04/30/17 03:30 Salicylates < 5.0 mg/dL (15-30) L 04/28/17 14:37 Acetaminophen 1.0 mcg/mL (10-30) L 04/28/17 14:37 - Clinical Findings Intake & Output: Intake & Output 04/30/17 04/30/17 05/01/17 15:59 23:59 07:59 Intake Total 1382.5 / 1382.5 842.7 / 842.7 322.2 / 322.2 Output Total 1364 / 1364 647 / 647 281 / 281 Balance 18.5 / 18.5 195.7 / 195.7 41.2 / 41.2 Weight 154.4 kg - VTE Documentation of Mechanical Device: Venous foot pump, device Consult Discharge Plan - Plan Referrals: NONE,PCP [Primary Care Provider] -
[2017-05-01 07:56] LABS: Bilirubin,Urine Small (Negative); Blood,Urine Large (Negative); Glucose,Urine (UA) 100 mg/dL (Normal); Ketones,Urine Trace mg/dL (Negative); Leukocyte Esterase,Urine Moderate (Negative); Nitrite,Urine Positive (Negative); PH,Urine 5.5 pH Units (5.0-8.0); Protein,Urine 100 mg/dL (Neg-Trace); Specific Gravity,Urine 1.023 (1.010-1.025); Urobilinogen,Urine Normal (Normal)
[2017-05-01] MEDS: Albumin 25% 25gram/100mL 25 GM/100 ML IV.SOLN IVPB SCH ×3 (07:58→23:38)
[2017-05-01] MEDS: Pantoprazole 40 MG VIAL IVP SCH (07:58)
[2017-05-01 07:59] LABS: Hyaline Casts,Urine None Seen per lpf (None-Few)
[2017-05-01] MEDS ORDERED: Vancomycin 1 EACH in EMPTY BAG 1 EACH IVPB SCH (08:00)
[2017-05-01 08:01] LABS: Color,Urine Yellow (Yellow)
[2017-05-01 08:02] LABS: Clarity,Urine Slightly Cloudy (Clear)
[2017-05-01 08:16] LABS: Squamous Epithelial Cell,Urine Moderate per lpf (None-Few)
[2017-05-01 08:17] LABS: Bacteria,Urine Many per hpf (None-Few); WBC,Urine 15-30 per hpf (0-3)
[2017-05-01] MEDS ORDERED: Vancomycin 1,500 MG in D5% in Water 250 ML IVPB ONE (09:00)
--- NOTE | 2017-05-01 09:17 | Palliative Progress Note ---
Date of Encounter: 05/01/17 Time of Encounter: 07:10 - Assessment and plan (1) UTI (urinary tract infection) Current Visit: No Status: Acute Assessment and plan: No cultures are back yet, white count continues to go up. The patient does appear to be least somewhat better today. He May also be due to the colitis. Plan per intensive care team. Qualifiers: Urinary tract infection type: site unspecified Hematuria presence: with hematuria Qualified Code(s): N39.0 - Urinary tract infection, site not specified; R31.9 - Hematuria, unspecified (2) Goals of care, counseling/discussion Current Visit: Yes Status: Acute Assessment and plan: She is full code at this time. sHe should not is improving, goal of care has been for her to return home. However she may not be able to do so, in that the family may not be able to take care of her. He has however made it clear to the family she would not want to be in a alf. This will be an ongoing discussion. (3) Abdominal pain Current Visit: No Status: Acute Assessment and plan: Due to colitis, as well as urinary tract infection does appear to be somewhat better today. Continue to follow. Qualifiers: Abdominal location: unspecified location Qualified Code(s): R10.9 - Unspecified abdominal pain (4) DEAN (acute kidney injury) Current Visit: Yes Status: Acute Assessment and plan: GFR is improving, patient is on S[place]ia, however she is making no urine. She is being followed by nephrology. - Time Spent With Patient Total time spent is greater than 50% in coordination of care (as documented) at patient's floor/unit and/or counseling patient: - Subjective Interval history: Looking better this morning. The patient is awake and alert and able to discuss things. She is also now off pressors. - Constitutional Vitals: Abnormal lab results WBC 35.4 K/mcL (4.3-11.1) H* 04/30/17 03:30 Hgb 11.0 g/dL (11.5-15.4) L 04/30/17 03:30 Hct 33.3 % (35.3-44.9) L 04/30/17 03:30 RDW 17.0 % (11.5-14.5) H 04/30/17 03:30 Plt Count 95 K/mcL (140-400) L 04/30/17 03:30 MPV 13.2 fL (9.4-12.4) H 04/30/17 03:30 Band Neutrophils % 22.0 % (0-4) H 04/29/17 03:30 Metamyelocytes % 5.0 % (0) H 04/28/17 12:00 Myelocytes % 1.0 % (0) H 04/28/17 12:00 Neutrophils # 32.9 K/mcL (1.6-8.9) H 04/30/17 03:30 Lymphocytes # 0.5 K/mcL (0.6-4.6) L 04/30/17 03:30 Toxic Vacuolation Present (Not Present) A 04/29/17 03:30 Dohle Bodies Present (Not Present) A 04/29/17 03:30 Platelet Estimate Decreased (Normal) L 04/30/17 03:30 Immature Plt Fraction 15.5 % (1.1-6.1) H 04/29/17 03:30 Anisocytosis 1+ (Not Present) A 04/30/17 03:30 APTT 47.2 Seconds (26.0-36.0) H 05/01/17 03:10 Fibrinogen 102 mg/dL (169-393) L 04/29/17 03:30 ABG pO2 65 mmHg (85-104) L 04/30/17 08:31 ABG O2 Saturation 92 % (95-98) L 04/30/17 08:31 Creatinine 1.38 mg/dL (0.57-1.11) H 05/01/17 03:10 Est GFR ( Amer) 46 (> 60) L 05/01/17 03:10 Est GFR (Non-Af Amer) 38 (> 60) L 05/01/17 03:10 Glucose 121 mg/dL (70-99) H 05/01/17 03:10 POC Glucose 115 (58-89) H 05/01/17 07:48 Calcium 7.9 mg/dL (8.6-10.8) L 05/01/17 03:10 Ionized Calcium 1.07 mmol/L (1.15-1.35) L 05/01/17 03:10 Phosphorus 2.0 mg/dL (2.3-4.7) L 05/01/17 03:10 Total Bilirubin 3.0 mg/dL (0.2-1.2) H 04/30/17 03:30 Direct Bilirubin 2.3 mg/dL (0.0-0.5) H 04/30/17 03:30 AST 156 Units/L (5-34) H 04/30/17 03:30 ALT 171 Units/L (0-55) H 04/30/17 03:30 Alkaline Phosphatase 139 Units/L (38-126) H 04/30/17 03:30 Troponin I 0.16 ng/mL (0-0.03) H* 04/28/17 21:00 Serum Total Protein 4.9 g/dL (6.0-8.3) L 04/30/17 03:30 Albumin 2.1 g/dL (3.5-5.0) L 04/30/17 03:30 Albumin/Globulin Ratio 0.8 (1.1-2.2) L 04/30/17 03:30 Urine Clarity Slightly Cloudy (Clear) A 05/01/17 07:30 Urine Protein 100 mg/dL (Neg-Trace) H 05/01/17 07:30 Urine Glucose (UA) 100 mg/dL (Normal) H 05/01/17 07:30 Urine Ketones Trace mg/dL (Negative) H 05/01/17 07:30 Urine Blood Large (Negative) H 05/01/17 07:30 Urine Nitrite Positive (Negative) A 05/01/17 07:30 Urine Bilirubin Small (Negative) H 05/01/17 07:30 Ur Leukocyte Esterase Moderate (Negative) H 05/01/17 07:30 Urine Microscopic RBC 3-5 per hpf (0-3) H 05/01/17 07:30 Urine Microscopic WBC 15-30 per hpf (0-3) H 05/01/17 07:30 Ur Squamous Epith Cells Moderate per lpf (None-Few) H 05/01/17 07:30 Urine Bacteria Many per hpf (None-Few) H 05/01/17 07:30 Ur Culture Indicated? YES (NO) A 05/01/17 07:30 Salicylates < 5.0 mg/dL (15-30) L 04/28/17 14:37 Acetaminophen 1.0 mcg/mL (10-30) L 04/28/17 14:37 General appearance: Present: no acute distress - Head Head exam: Present: atraumatic, normal inspection - Eye Eye exam: Present: normal appearance - Neck Neck exam: Absent: normal inspection (Central line on right) - Respiratory Respiratory exam: Present: decreased breath sounds - Cardiovascular Cardiovascular exam: Present: RRR - GI/Abdominal GI/Abdominal exam: Present: hypoactive bowel sounds, soft. Absent: tenderness - Extremities Exam Extremities exam: Present: pedal edema - Neurological Exam Neurological exam: Present: alert - Psychiatric Psychiatric exam: Absent: agitated, anxious - Skin Skin exam: Present: dry, warm Palliative Quality Palliative Quality: Screen for Code Status: Yes, Screen for Goals of Care: Yes, Screen for Pain: Yes, If Pain Regimen Started, Initiate Bowel Regimen: Yes, Screen for Nausea/Vomitting: Yes Code Status: 04/28/17 15:03 Resuscitation Status: Active [RES] Routine Comment: Resuscitation Status: Full Code - Labs CBC & Chem 7: 04/30/17 03:30 05/01/17 03:10 Labs: Laboratory Results - last 24 hr 04/30/17 04/30/17 04/30/17 11:22 16:25 20:42 PT INR APTT Sodium Potassium Chloride Carbon Dioxide BUN Creatinine Est GFR ( Amer) Est GFR (Non-Af Amer) BUN/Creatinine Ratio Glucose POC Glucose 126 H 98 H 125 H Calculated Osmolality Calcium Ionized Calcium Phosphorus Magnesium Urine Color Urine Clarity Urine pH Ur Specific Rice Urine Protein Urine Glucose (UA) Urine Ketones Urine Blood Urine Nitrite Urine Bilirubin Urine Urobilinogen Ur Leukocyte Esterase Urine Microscopic RBC Urine Microscopic WBC Ur Squamous Epith Cells Urine Bacteria Hyaline Casts Ur Culture Indicated? Vancomycin Trough 05/01/17 05/01/17 05/01/17 00:17 03:10 03:10 PT 11.7 INR 1.1 APTT 47.2 H Sodium Potassium Chloride Carbon Dioxide BUN Creatinine Est GFR ( Amer) Est GFR (Non-Af Amer) BUN/Creatinine Ratio Glucose POC Glucose 109 H Calculated Osmolality Calcium Ionized Calcium 1.07 L Phosphorus 2.0 L Magnesium 2.1 Urine Color Urine Clarity Urine pH Ur Specific Rice Urine Protein Urine Glucose (UA) Urine Ketones Urine Blood Urine Nitrite Urine Bilirubin Urine Urobilinogen Ur Leukocyte Esterase Urine Microscopic RBC Urine Microscopic WBC Ur Squamous Epith Cells Urine Bacteria Hyaline Casts Ur Culture Indicated? Vancomycin Trough 05/01/17 05/01/17 05/01/17 03:10 03:10 04:01 PT INR APTT Sodium 137 Potassium 4.4 Chloride 103 Carbon Dioxide 27 BUN 15 D Creatinine 1.38 H Est GFR ( Amer) 46 L Est GFR (Non-Af Amer) 38 L BUN/Creatinine Ratio 11 Glucose 121 H POC Glucose 115 H Calculated Osmolality 286 Calcium 7.9 L Ionized Calcium Phosphorus Magnesium Urine Color Urine Clarity Urine pH Ur Specific Rice Urine Protein Urine Glucose (UA) Urine Ketones Urine Blood Urine Nitrite Urine Bilirubin Urine Urobilinogen Ur Leukocyte Esterase Urine Microscopic RBC Urine Microscopic WBC Ur Squamous Epith Cells Urine Bacteria Hyaline Casts Ur Culture Indicated? Vancomycin Trough 19.9 05/01/17 05/01/17 07:30 07:48 PT INR APTT Sodium Potassium Chloride Carbon Dioxide BUN Creatinine Est GFR ( Amer) Est GFR (Non-Af Amer) BUN/Creatinine Ratio Glucose POC Glucose 115 H Calculated Osmolality Calcium Ionized Calcium Phosphorus Magnesium Urine Color Yellow Urine Clarity Slightly Cloudy A Urine pH 5.5 Ur Specific Rice 1.023 Urine Protein 100 H Urine Glucose (UA) 100 H Urine Ketones Trace H Urine Blood Large H Urine Nitrite Positive A Urine Bilirubin Small H Urine Urobilinogen Normal Ur Leukocyte Esterase Moderate H Urine Microscopic RBC 3-5 H Urine Microscopic WBC 15-30 H Ur Squamous Epith Cells Moderate H Urine Bacteria Many H Hyaline Casts None Seen Ur Culture Indicated? YES A Vancomycin Trough - ABG Interpretation ABG results: ABG ABG pH 7.37 pH Units (7.32-7.45) 04/30/17 08:31 ABG pCO2 42 mmHg (35-45) 04/30/17 08:31 ABG pO2 65 mmHg (85-104) L 04/30/17 08:31 ABG O2 Saturation 92 % (95-98) L 04/30/17 08:31 PT/INR, D-dimer PT 11.7 Seconds (9.4-12.1) 05/01/17 03:10 Consult Discharge Plan - Plan Referrals: NONE,PCP [Primary Care Provider] -
[2017-05-01 10:07] LABS: Basophils % 0.2 %
[2017-05-01 10:09] LABS: Basophils # 0.1 K/mcL (0.0-0.2); Hematocrit 30.6 % (35.3-44.9); Immature Granulocytes % 2.4 % (0-4); Immature Platelets 14.3 % (1.1-6.1); Lymphocytes # 0.4 K/mcL (0.6-4.6); Lymphocytes % 1.8 %; Mean Corpuscular HGB Conc 32.7 g/dL (31.6-35.5); Mean Corpuscular Hemoglobin 27.8 pg (28.0-33.3); Mean Platelet Volume 12.7 fL (9.4-12.4); Monocytes % 7.1 %; Neutrophils # 20.6 K/mcL (1.6-8.9); Nucleated Red Blood Cells 0.1 /100 WBC (0); Red Cell Distribution Width 17.1 % (11.5-14.5); Segmented Neutrophils % 88.5 %
[2017-05-01 10:20] LABS: Monocytes # 1.7 K/mcL (0.0-1.3); Platelet Count 69 K/mcL (140-400)
[2017-05-01 11:01] LABS: Platelet Estimate Decreased (Normal)
--- NOTE | 2017-05-01 11:08 | Cardiology Progress Note ---
Date of Encounter: 05/01/17 Time of Encounter: 09:50 Assessment and Plan (1) Sinus tachycardia Current Visit: Yes Status: Acute Telemetry was reviewed for last night and there were no signs of atrial fibrillation. Patient is off of amiodarone. (2) CHF (congestive heart failure) Current Visit: Yes Status: Acute Patient displays risk factors for CHF including HTN and morbid obesity. Echocardiogram shows an LVEF of 30-35% along with severe LV systolic dysfunction. Patient's chest x-ray shows signs of cardiomegaly and pulmonary edema. Patient's BP range has been from 82/47-117/67. Given patient's state of septic shock, she would not make a good candidate for any cardiac catheterization until she has been stabilized. I do not recommend blanquita-I or BB given patient's RF and hypotension. I do not recommend statin given elevated liver enzymes. Recommend only aspirin and supportive therapy for now. Qualifiers: Congestive heart failure type: unspecified congestive heart failure type Congestive heart failure chronicity: acute on chronic Qualified Code(s): I50.9 - Heart failure, unspecified (3) Elevated troponin Current Visit: Yes Status: Acute Latest troponin was at 0.16. Elevated troponin most likely secondary to patient' s sepsis. Discussion w patient/family: The assessment and plan as outlined above was discussed with the patient and/or family members who expressed understanding and agreement. All questions were answered. Thank you for involving us in the care of your patient. Please call with any questions. Subjective Principal diagnosis: Septic shock Interval history: Patient denies any chest pain, nausea, vomiting, shortness of breath, dizziness , syncope, or abdominal pain. She says that she feels better than yesterday. Objective Vital Signs, Last 4 Hours Temp Pulse Resp BP Pulse Ox 05/01/17 10:00 70 16 128/81 95 05/01/17 09:00 76 16 113/64 95 05/01/17 08:00 97.7 F 76 16 115/76 93 General: Conversant Neck: Other (R IJ line in place. No JVD on left side. No bruits detected on left carotid. ) Cardiac: Reg Rate and Rhythm, Normal S1 and S2, No Murmur Lungs: Normal Breath Sounds, No Wheeze, Rales, Rhonchi Neuro: Alert and responsive Musculoskeletal: No Chest Wall Tenderness Extremities: Other (Edema of lower extremeties bilaterally. ) Results 05/01/17 09:55 05/01/17 03:10 Lab Results 05/01/17 05/01/17 05/01/17 03:10 03:10 03:10 WBC Hgb Hct Plt Count INR 1.1 APTT 47.2 H Sodium 137 Potassium 4.4 Chloride 103 Carbon Dioxide 27 BUN 15 D Creatinine 1.38 H Glucose 121 H Calcium 7.9 L Magnesium 2.1 05/01/17 09:55 WBC 23.3 H Hgb 10.0 L Hct 30.6 L Plt Count 69 L INR APTT Sodium Potassium Chloride Carbon Dioxide BUN Creatinine Glucose Calcium Magnesium - VTE Documentation of Mechanical Device: Venous foot pump, device Consult Discharge Plan - Plan Referrals: NONE,PCP [Primary Care Provider] -
--- NOTE | 2017-05-01 11:25 | Nephrology Progress Note ---
Date of Encounter: 05/01/17 Time of Encounter: 11:00 Subjective Principal diagnosis: Septic shock Interval history: Patient seen. Patient still on CVVHD. Objective - Vital Signs Vital signs: Vital Signs Temp Pulse Resp BP Pulse Ox 05/01/17 11:00 75 16 137/82 95 05/01/17 10:00 70 16 128/81 95 05/01/17 09:00 76 16 113/64 95 05/01/17 08:00 97.7 F 76 16 115/76 93 05/01/17 07:00 61 18 117/67 95 05/01/17 06:00 60 16 96/64 94 05/01/17 05:00 64 18 102/49 95 05/01/17 04:08 60 05/01/17 04:00 96.6 F L 65 20 126/105 95 05/01/17 03:00 60 18 95/72 96 05/01/17 02:00 63 20 106/66 95 05/01/17 01:00 67 20 100/43 96 05/01/17 00:02 70 05/01/17 00:00 97.6 F 69 20 99/62 96 04/30/17 23:00 75 21 98/55 95 04/30/17 22:00 85 20 101/63 95 04/30/17 21:00 99.3 F 84 20 89/61 93 04/30/17 20:00 95 18 113/88 93 04/30/17 19:45 102 04/30/17 18:56 102 20 113/83 94 04/30/17 18:00 96 20 107/95 94 04/30/17 17:00 92 20 101/75 94 04/30/17 16:00 99.1 F 96 20 119/64 96 04/30/17 15:00 96 20 125/74 96 04/30/17 14:00 98 20 103/69 96 04/30/17 13:00 102 20 84/45 96 04/30/17 12:00 98.1 F 96 20 95/59 97 Intake and Output 04/30/17 05/01/17 05/01/17 23:59 07:59 15:59 Intake Total 1092.7 / 1092.7 432.2 / 432.2 320 / 320 Output Total 647 / 647 349 / 349 485 / 485 Balance 445.7 / 445.7 83.2 / 83.2 -165 / -165 Intake: IV Fluids 972.7 / 972.7 432.2 / 432.2 200 / 200 PrismaSATE BGK 4/2.5 5, 0 / 0 0 / 0 0 / 0 000 ML @ 1250 mls/hr CRRT CONT [facility] Rx#:[id number] Vasostrict 40 UNIT In 87 / 87 Dextrose 5% 100 ML @ 0.03 UNIT/MIN 4.59 mls/hr IV .[id number] JENNA Rx#: [id number] Amiodarone Drip Premix 200 / 200 360mg/200mL 360 mg In 200 ml @ 0.5 MG/MIN 16.667 mls/hr IVC CONT [facility] Rx#: [id number] PRECEDEX Premix 400 mcg 62.7 / 62.7 101.2 / 101.2 In 100 ml @ 0.2 MCG/KG/HR 7.348 mls/hr IVC . [id number] JENNA Rx#: [id number] Levophed 8 MG In Dextrose 250 / 250 34 / 34 5% 250 ML @ 21 MCG/MIN 40.63 mls/hr IVC CONT [facility] Rx#:[id number] Flexbumin 25 gm In 100 ml 100 / 100 @ 60 mls/hr IVPB Q8HR [facility]ENNA Rx#:[id number] Calcium Gluconate 1,000 110 / 110 MG In Dextrose 5% 100 ML @ 50 mls/hr IVPB Q6HR PRN Rx#:[id number] AquaMephyton 5 MG In 0.9 100 / 100 % Sodium Chloride 50 ML @ 100 mls/hr IVPB QDPC [facility]ENNA Rx#:[id number] Zosyn 3.375 GM In 100 / 100 100 / 100 Dextrose 5% (Minibag+) 100 ML 100 ML @ 25 mls/hr IVPB Q8H [facility]ENNA Rx#: [id number] Sodium Phosphate 30 MMOL 110 / 110 In Dextrose 5% 100 ML @ 16 mls/hr IVPB Q12H PRN Rx#:[id number] Oral 120 / 120 120 / 120 Output: Urine 0 / 0 0 / 0 0 / 0 Urethral (Haji) 0 / 0 0 / 0 0 / 0 Sintia 632 / 632 344 / 344 480 / 480 Catheter 15 / 15 5 / 5 5 / 5 Other: Weight 154.4 kg Blood Glucose* 125 115 Patient Weight 05/01/17 23:59 Weight 154.4 kg - Lab 05/01/17 09:55 05/01/17 03:10 Most recent lab results ABG pH 7.37 pH Units (7.32-7.45) 04/30/17 08:31 ABG pCO2 42 mmHg (35-45) 04/30/17 08:31 ABG pO2 65 mmHg (85-104) L 04/30/17 08:31 ABG HCO3 24.3 mEQ/L (21-27) 04/30/17 08:31 ABG O2 Saturation 92 % (95-98) L 04/30/17 08:31 Calcium 7.9 mg/dL (8.6-10.8) L 05/01/17 03:10 Phosphorus 2.0 mg/dL (2.3-4.7) L 05/01/17 03:10 Magnesium 2.1 mg/dL (1.6-2.6) 05/01/17 03:10 Urine Creatinine 57 mg/dL 04/29/17 23:05 Urine Sodium 88.0 mEq/L 04/29/17 23:05 - VTE Documentation of Mechanical Device: Venous foot pump, device Consult Discharge Plan - Plan Referrals: NONE,PCP [Primary Care Provider] -
[2017-05-01] MEDS: *HR* Heparin 5,000 UNIT/ML VIAL IV PRN (15:16)
[2017-05-02] MEDS ORDERED: *HR* Heparin 5,000 UNIT/ML VIAL ONE (00:04)
[2017-05-02] MEDS: *HR* Heparin 5,000 UNIT/ML VIAL IV PRN (00:50)
[2017-05-02] MEDS: PrismaSATE BGK 4/2.5 5,000 ML CRRT SCH ×4 (01:49→06:00)
[2017-05-02] MEDS: *HR* FentaNYL (PF) 100 MCG/2 ML VIAL IVP PRN ×7 (03:23→23:58)
[2017-05-02 03:46] LABS: Ionized Calcium 1.12 mmol/L (1.15-1.35)
[2017-05-02 03:49] LABS: Prothrombin Time 10.7 Seconds (9.4-12.1)
[2017-05-02 03:51] LABS: Activated Partial Thrombo Time 49.8 Seconds (26.0-36.0)
[2017-05-02 03:55] LABS: Calcium 8.3 mg/dL (8.6-10.8); Potassium 4.1 mEq/L (3.5-4.5)
[2017-05-02 04:05] LABS: Magnesium 2.3 mg/dL (1.6-2.6); Phosphorous 1.6 mg/dL (2.3-4.7)
[2017-05-02] MEDS: Dexmedetomidine HCl 400 MCG/100 ML MLS IVC SCH (04:25)
[2017-05-02] MEDS: Norepinephrine 8 MG in D5% in Water 250 ML IVC SCH (04:25)
[2017-05-02] MEDS: Sodium Phosphate 30 MMOL in D5% in Water 100 ML IVPB PRN (05:10)
[2017-05-02] MEDS: *HR* Heparin 5,000 UNIT/ML VIAL SQ SCH ×3 (05:12→23:44)
[2017-05-02 05:24] LABS: Immature Granulocytes % 0.3 % (0-4); Red Cell Distribution Width 17.2 % (11.5-14.5)
[2017-05-02 05:26] LABS: Basophils % 0.1 %; Eosinophils % 0.1 %; Hematocrit 29.2 % (35.3-44.9); Hemoglobin 9.3 g/dL (11.5-15.4); Immature Platelets 17.1 % (1.1-6.1); Lymphocytes # 0.5 K/mcL (0.6-4.6); Lymphocytes % 2.9 %; Mean Corpuscular HGB Conc 31.8 g/dL (31.6-35.5); Mean Corpuscular Hemoglobin 27.2 pg (28.0-33.3); Mean Corpuscular Volume 85.4 fL (83.0-100.0); Mean Platelet Volume 12.5 fL (9.4-12.4); Monocytes # 2.8 K/mcL (0.0-1.3); Monocytes % 18.4 %; Nucleated Red Blood Cells 0.1 /100 WBC (0); Red Blood Count 3.42 M/mcL (3.82-4.97); Segmented Neutrophils % 78.2 %
[2017-05-02 05:50] LABS: Alanine Aminotransferase 104 Units/L (0-55); Albumin 3.1 g/dL (3.5-5.0); Alkaline Phosphatase 158 Units/L (38-126); Aspartate Amino Transferase 41 Units/L (5-34); Bilirubin,Total 2.2 mg/dL (0.2-1.2)
[2017-05-02 05:55] LABS: Platelet Count 65 K/mcL (140-400)
[2017-05-02 05:57] LABS: Albumin/Globulin Ratio 1.3 (1.1-2.2); Globulin 2.3 g/dL (2.4-3.5); Total Protein 5.4 g/dL (6.0-8.3)
--- NOTE | 2017-05-02 07:42 | Pulmonology Progress Note ---
<Ethan Espino W - Last Filed: 05/02/17 07:57> Date of Encounter: 05/02/17 Assessment and Plan (1) Septic shock Current Visit: Yes Status: Acute (2) Edema Current Visit: No Status: Chronic Qualifiers: Edema type: unspecified Qualified Code(s): R60.9 - Edema, unspecified (3) Abdominal pain Current Visit: No Status: Acute Qualifiers: Abdominal location: unspecified location Qualified Code(s): R10.9 - Unspecified abdominal pain (4) Decubitus ulcer Current Visit: No Status: Acute Qualifiers: Pressure ulcer location: unspecified location Pressure ulcer stage: stage 2 Qualified Code(s): L89.92 - Pressure ulcer of unspecified site, stage 2 (5) Sepsis Current Visit: No Status: Acute Qualifiers: Sepsis type: sepsis due to unspecified organism Qualified Code(s): A41.9 - Sepsis, unspecified organism (6) Renal failure Current Visit: No Status: Acute Qualifiers: Chronic kidney disease stage: unspecified stage Qualified Code(s): N18.9 - Chronic kidney disease, unspecified (7) Elevated troponin I level Current Visit: No Status: Acute (8) Transaminitis Current Visit: Yes Status: Acute (9) DVT prophylaxis Current Visit: Yes Status: Acute (10) Acute liver failure Current Visit: Yes Status: Acute Qualifiers: Hepatic coma status: without hepatic coma Qualified Code(s): K72.00 - Acute and subacute hepatic failure without coma (11) CHF (congestive heart failure) Current Visit: Yes Status: Acute Qualifiers: Congestive heart failure type: unspecified congestive heart failure type Congestive heart failure chronicity: acute on chronic Qualified Code(s): I50.9 - Heart failure, unspecified (12) Goals of care, counseling/discussion Current Visit: Yes Status: Acute (13) Acute respiratory failure with hypoxia and hypercarbia Current Visit: Yes Status: Acute (14) Atrial fibrillation with RVR Current Visit: Yes Status: Acute Objective PUL Vital signs: Last Vital Signs Temp 98.3 F 05/02/17 04:00 Pulse 73 05/02/17 07:00 Resp 20 05/02/17 07:00 BP 117/78 05/02/17 07:00 Pulse Ox 94 05/02/17 07:00 Results - Laboratory Findings CBC and BMP: 05/02/17 05:19 05/02/17 Unknown ABG ABG pH 7.37 pH Units (7.32-7.45) 04/30/17 08:31 ABG pCO2 42 mmHg (35-45) 04/30/17 08:31 ABG pO2 65 mmHg (85-104) L 04/30/17 08:31 ABG O2 Saturation 92 % (95-98) L 04/30/17 08:31 PT/INR, D-dimer PT 10.7 Seconds (9.4-12.1) 05/02/17 Unknown Abnormal lab findings: Abnormal lab results WBC 15.4 K/mcL (4.3-11.1) H 05/02/17 05:19 RBC 3.42 M/mcL (3.82-4.97) L 05/02/17 05:19 Hgb 9.3 g/dL (11.5-15.4) L 05/02/17 05:19 Hct 29.2 % (35.3-44.9) L 05/02/17 05:19 MCH 27.2 pg (28.0-33.3) L 05/02/17 05:19 RDW 17.2 % (11.5-14.5) H 05/02/17 05:19 Plt Count 65 K/mcL (140-400) L 05/02/17 05:19 MPV 12.5 fL (9.4-12.4) H 05/02/17 05:19 Band Neutrophils % 22.0 % (0-4) H 04/29/17 03:30 Metamyelocytes % 5.0 % (0) H 04/28/17 12:00 Myelocytes % 1.0 % (0) H 04/28/17 12:00 Neutrophils # 12.0 K/mcL (1.6-8.9) H 05/02/17 05:19 Lymphocytes # 0.5 K/mcL (0.6-4.6) L 05/02/17 05:19 Monocytes # 2.8 K/mcL (0.0-1.3) H 05/02/17 05:19 Nucleated RBCs/100 WBC 0.1 /100 WBC (0) H 05/02/17 05:19 Toxic Vacuolation Present (Not Present) A 04/29/17 03:30 Dohle Bodies Present (Not Present) A 04/29/17 03:30 Platelet Estimate Decreased (Normal) L 05/01/17 09:55 Immature Plt Fraction 17.1 % (1.1-6.1) H 05/02/17 05:19 Anisocytosis 1+ (Not Present) A 04/30/17 03:30 APTT 49.8 Seconds (26.0-36.0) H 05/02/17 Unknown Fibrinogen 102 mg/dL (169-393) L 04/29/17 03:30 ABG pO2 65 mmHg (85-104) L 04/30/17 08:31 ABG O2 Saturation 92 % (95-98) L 04/30/17 08:31 Carbon Dioxide 30 mEq/L (19-29) H 05/02/17 Unknown Creatinine 1.15 mg/dL (0.57-1.11) H 05/02/17 Unknown Est GFR ( Amer) 57 (> 60) L 05/02/17 Unknown Est GFR (Non-Af Amer) 47 (> 60) L 05/02/17 Unknown Glucose 125 mg/dL (70-99) H 05/02/17 Unknown POC Glucose 116 (58-89) H 05/01/17 23:34 Calcium 8.3 mg/dL (8.6-10.8) L 05/02/17 Unknown Ionized Calcium 1.12 mmol/L (1.15-1.35) L 05/02/17 Unknown Phosphorus 1.6 mg/dL (2.3-4.7) L 05/02/17 Unknown Total Bilirubin 2.2 mg/dL (0.2-1.2) H 05/02/17 05:19 Direct Bilirubin 2.3 mg/dL (0.0-0.5) H 04/30/17 03:30 AST 41 Units/L (5-34) H 05/02/17 05:19 ALT 104 Units/L (0-55) H 05/02/17 05:19 Alkaline Phosphatase 158 Units/L (38-126) H 05/02/17 05:19 Troponin I 0.16 ng/mL (0-0.03) H* 04/28/17 21:00 Serum Total Protein 5.4 g/dL (6.0-8.3) L 05/02/17 05:19 Albumin 3.1 g/dL (3.5-5.0) L D 05/02/17 05:19 Globulin 2.3 g/dL (2.4-3.5) L 05/02/17 05:19 Urine Clarity Slightly Cloudy (Clear) A 05/01/17 07:30 Urine Protein 100 mg/dL (Neg-Trace) H 05/01/17 07:30 Urine Glucose (UA) 100 mg/dL (Normal) H 05/01/17 07:30 Urine Ketones Trace mg/dL (Negative) H 05/01/17 07:30 Urine Blood Large (Negative) H 05/01/17 07:30 Urine Nitrite Positive (Negative) A 05/01/17 07:30 Urine Bilirubin Small (Negative) H 05/01/17 07:30 Ur Leukocyte Esterase Moderate (Negative) H 05/01/17 07:30 Urine Microscopic RBC 3-5 per hpf (0-3) H 05/01/17 07:30 Urine Microscopic WBC 15-30 per hpf (0-3) H 05/01/17 07:30 Ur Squamous Epith Cells Moderate per lpf (None-Few) H 05/01/17 07:30 Urine Bacteria Many per hpf (None-Few) H 05/01/17 07:30 Ur Culture Indicated? YES (NO) A 05/01/17 07:30 Vancomycin Trough 20.7 mcg/mL (10-20) H* 05/02/17 Unknown Salicylates < 5.0 mg/dL (15-30) L 04/28/17 14:37 Acetaminophen 1.0 mcg/mL (10-30) L 04/28/17 14:37 - Microbiology Findings Microbiology Findings: Microbiology, Last 48 Hours 05/01/17 07:30 Urine Culture - Final Urine,Clean Catch No growth. - Clinical Findings Intake & Output: Intake & Output 05/01/17 05/01/17 05/02/17 15:59 23:59 07:59 Intake Total 780 / 780 214.2 / 214.2 218.8 / 218.8 Output Total 940 / 940 560 / 560 485 / 485 Balance -160 / -160 -345.8 / -345.8 -266.2 / -266.2 Weight 153.1 kg Consult Discharge Plan - Plan Referrals: NONE,PCP [Primary Care Provider] - - Attending Attestation I examined this patient and my medical decision-making was reviewed with the Resident Physician. I agree with the documented findings, disposition and treatment plan as described except to the extent set forth below. We independently had [id number] contact with the patient Patient seen and examined at bedside Labs, radiology, chart personally reviewed. Management was reviewed during multidisciplinary critical care rounds Neuropsych: Acute delirium complicated by metabolic encephalopathy appears to be improving. Low-dose narcotic for pain.We will focus on congregation of sleep- wake cycle. avoid sensory deprivation, and avoid PAPER WRAPPING MACHINE OPERATOR depressant medications as able. Pulm: Acceptable oxygenation on supplemental NC o2. Acceptable oxygenation on nasal cannula O2 Cards: Shock physiology with MOSF.most c/w distributive shock and possible adrenal insufficiency this is overall improving. She has been diagnosis new cardiomyopathy which will need invasive ischemic evaluation possibly early next week Cardiology following pattern is not consistent with acute coronary syndrome. FEN-GI: Acute liver insufficiecy likely related to Sepsis MOSF. LFTs have nearly normalized she may need MRCP when more stable to rule out CBD stone. Renal: DEAN likely prerenal azotemia. Remains Auric requiring continuous renal replacement therapy Albumin started for anasarca with albumin less than 2.5. We are monitoring her electrolyte panel daily and replacing per protocol Appreciate nephrology following this patient. We will continue to follow a nephro protective strategy ID: Acute Septic Shock likely secondary of unclear etiology but possible intrrabdominal vs UTI. De-escalate in 24 hours if no clear pathogen identified. Overall this is improving Heme/Onc: Thrombocytopenia mild coagulopathy which is correcting with vitamin K H/H stable. No overt signs of bleeding. DVT prophylaxis with heparin Endo: Glucose Monitored and stable. She is receiving stress dose hydrocortisone for shock which we will de-escalate to 50 3 times a day today Integ/MSK: Skin Care per routine ICU Nursing Protocol to prevent ulcers. She has a stage II decubitus ulcer and gluteal skin tear which is being managed by a nursing team Lines: All lines examined without evidence of infection including: right CVC Dispo: Once she can be transitioned to intermittent hemodialysis she can be moved out of the ICU CODE: Full Code patient and family updated at bedside. Palliative Care Consulted appreciate Recs. <Nikolay Lozada - Last Filed: 05/02/17 10:26> Date of Encounter: 05/02/17 Time of Encounter: 07:42 Assessment and Plan (1) Septic shock Current Visit: Yes Status: Acute The patient is currently hypertensive with a blood pressure of 154/83. This is an improvement from her severe hypotension when she came in with septic shock and needed pressors. Her urine culture did not show any growth on the final culture. Her blood cultures were also negative. At this time, we have not discovered a true source for this patient's septic shock. However, it appears as if she has improved tremendously through the treatment that we have provided her. At this time, we have discontinued Sintia. Dr. Das, her linoleum mechanic, will continue following her renal function in the hospital. I will [facility] this [facility]. (2) Acute liver failure Current Visit: Yes Status: Acute Herpetic transaminases currently reveal an AST of 41 and an ALT of 104. This is an improvement from her elevated transaminases when she arrived here. I think that her liver function is starting to improve significantly. She does have scleral icterus and her total bilirubin is 2.2. This has improved significantly. Gastroenterology made a note stating that they would perform an M AQUACULTURE AND FISHERIES PROFESSOR when the patient became stable. Qualifiers: Hepatic coma status: without hepatic coma Qualified Code(s): K72.00 - Acute and subacute hepatic failure without coma (3) UTI (urinary tract infection) Current Visit: No Status: Acute This patient has a history of recurrent urinary tract infections. Although her first urine culture came back negative, there is still a strong suspicion that her severe septic shock came from a urinary tract infection. We did a repeat urinalysis yesterday and a new culture is pending. This urinalysis was leukocyte esterase positive and nitrite positive as well. She has been on Zosyn as antimicrobial treatment. We will continue this. Qualifiers: Urinary tract infection type: site unspecified Hematuria presence: with hematuria Qualified Code(s): N39.0 - Urinary tract infection, site not specified; R31.9 - Hematuria, unspecified (4) Abdominal pain Current Visit: No Status: Acute The electrical helper was consulted regarding her epigastric abdominal pain, and elevated hepatic transaminases. At this time, he is not recommending any further treatment. Once patient stabilizes, however, he does recommend performing an MRCP on this patient. Note that her hepatic panel came back negative. Her right upper quadrant ultrasound was also unremarkable. We will continue monitoring this patient's mental status as well as abdominal pain through her stay. Qualifiers: Abdominal location: unspecified location Qualified Code(s): R10.9 - Unspecified abdominal pain (5) DEAN (acute kidney injury) Current Visit: Yes Status: Acute Patient has been on Sintia for last few days. Per the linoleum mechanic, this will be stopped today. He will continue monitoring her renal function over the next few days to delineate whether to do anymore dialysis on this patient. (6) Transaminitis Current Visit: Yes Status: Acute A hep panel was obtained and the screening was negative for hepatitis A, hepatitis B, or hepatitis C. We will continue monitoring to trend her hepatic transaminases. They are improving significantly from where they were when she arrived in the intensive care unit. (7) CHF (congestive heart failure) Current Visit: Yes Status: Acute An echocardiogram was performed and that showed left ventricular systolic dysfunction. Patient has not left ventricular ejection fraction of 30-35%. There is no previous echocardiogram to compare this to. I have consulted cardiology regarding this patient. Brass Bobbin Winder states at this time the patient is too unstable to undergo a cardiac catheterization. However, this could be the plan in the future once she stabilizes. He also believes that a gram-negative sepsis can contribute to a lowered ejection fraction and wall motion abnormalities. This patient's troponin is elevated, but has stabilized. She has no ischemic EKG changes. I suspect that her elevated troponin is due to decreased clearance from her acute kidney injury. Qualifiers: Congestive heart failure type: unspecified congestive heart failure type Congestive heart failure chronicity: acute on chronic Qualified Code(s): I50.9 - Heart failure, unspecified (8) Elevated troponin Current Visit: Yes Status: Acute See above (9) DVT prophylaxis Current Visit: Yes Status: Acute Patient was on 5000 units of heparin subcutaneous every 8 hours. Subjective Principal diagnosis: Septic shock Interval history: Patient did fine last night. She is alert and oriented per nursing staff and family. She states that she is uncomfortable in the bed, but feeling fine otherwise. Objective PUL Vital signs: Last Vital Signs Temp 98.3 F 05/02/17 04:00 Pulse 73 05/02/17 07:00 Resp 20 05/02/17 07:00 BP 117/78 05/02/17 07:00 Pulse Ox 94 08/26/17 07:00 General appearance: no acute distress, alert, other (Obese 71-year-old female is alert and oriented and mentating appropriately) Eyes: icteric ENT: oropharynx moist Neck: supple Effort: normal Auscultation: bilateral: rales Cardiovascular: regular rate and rhythm Gastrointestinal: normoactive bowel sounds Integumentary: normal Extremities: no cyanosis, no clubbing, pink and warm, pulses normal, no ischemia or petechiae, edema (2+ pitting edema bilaterally) normal mental status, non-focal exam, pupils equal and round mood appropriate, affect normal Results - Laboratory Findings CBC and BMP: 05/02/17 05:19 05/02/17 Unknown ABG ABG pH 7.37 pH Units (7.32-7.45) 04/30/17 08:31 ABG pCO2 42 mmHg (35-45) 04/30/17 08:31 ABG pO2 65 mmHg (85-104) L 04/30/17 08:31 ABG O2 Saturation 92 % (95-98) L 04/30/17 08:31 PT/INR, D-dimer PT 10.7 Seconds (9.4-12.1) 05/02/17 Unknown Abnormal lab findings: Abnormal lab results WBC 15.4 K/mcL (4.3-11.1) H 05/02/17 05:19 RBC 3.42 M/mcL (3.82-4.97) L 05/02/17 05:19 Hgb 9.3 g/dL (11.5-15.4) L 05/02/17 05:19 Hct 29.2 % (35.3-44.9) L 05/02/17 05:19 MCH 27.2 pg (28.0-33.3) L 05/02/17 05:19 RDW 17.2 % (11.5-14.5) H 05/02/17 05:19 Plt Count 65 K/mcL (140-400) L 05/02/17 05:19 MPV 12.5 fL (9.4-12.4) H 05/02/17 05:19 Band Neutrophils % 22.0 % (0-4) H 04/29/17 03:30 Metamyelocytes % 5.0 % (0) H 04/28/17 12:00 Myelocytes % 1.0 % (0) H 04/28/17 12:00 Neutrophils # 12.0 K/mcL (1.6-8.9) H 05/02/17 05:19 Lymphocytes # 0.5 K/mcL (0.6-4.6) L 05/02/17 05:19 Monocytes # 2.8 K/mcL (0.0-1.3) H 05/02/17 05:19 Nucleated RBCs/100 WBC 0.1 /100 WBC (0) H 05/02/17 05:19 Toxic Vacuolation Present (Not Present) A 04/29/17 03:30 Dohle Bodies Present (Not Present) A 04/29/17 03:30 Platelet Estimate Decreased (Normal) L 05/01/17 09:55 Immature Plt Fraction 17.1 % (1.1-6.1) H 05/02/17 05:19 Anisocytosis 1+ (Not Present) A 04/30/17 03:30 APTT 49.8 Seconds (26.0-36.0) H 05/02/17 Unknown Fibrinogen 102 mg/dL (169-393) L 04/29/17 03:30 ABG pO2 65 mmHg (85-104) L 04/30/17 08:31 ABG O2 Saturation 92 % (95-98) L 04/30/17 08:31 Carbon Dioxide 30 mEq/L (19-29) H 05/02/17 Unknown Creatinine 1.15 mg/dL (0.57-1.11) H 05/02/17 Unknown Est GFR ( Amer) 57 (> 60) L 05/02/17 Unknown Est GFR (Non-Af Amer) 47 (> 60) L 05/02/17 Unknown Glucose 125 mg/dL (70-99) H 05/02/17 Unknown POC Glucose 116 (58-89) H 05/01/17 23:34 Calcium 8.3 mg/dL (8.6-10.8) L 05/02/17 Unknown Ionized Calcium 1.12 mmol/L (1.15-1.35) L 05/02/17 Unknown Phosphorus 1.6 mg/dL (2.3-4.7) L 05/02/17 Unknown Total Bilirubin 2.2 mg/dL (0.2-1.2) H 05/02/17 05:19 Direct Bilirubin 2.3 mg/dL (0.0-0.5) H 04/30/17 03:30 AST 41 Units/L (5-34) H 05/02/17 05:19 ALT 104 Units/L (0-55) H 05/02/17 05:19 Alkaline Phosphatase 158 Units/L (38-126) H 05/02/17 05:19 Troponin I 0.16 ng/mL (0-0.03) H* 04/28/17 21:00 Serum Total Protein 5.4 g/dL (6.0-8.3) L 05/02/17 05:19 Albumin 3.1 g/dL (3.5-5.0) L D 05/02/17 05:19 Globulin 2.3 g/dL (2.4-3.5) L 05/02/17 05:19 Urine Clarity Slightly Cloudy (Clear) A 05/01/17 07:30 Urine Protein 100 mg/dL (Neg-Trace) H 05/01/17 07:30 Urine Glucose (UA) 100 mg/dL (Normal) H 05/01/17 07:30 Urine Ketones Trace mg/dL (Negative) H 05/01/17 07:30 Urine Blood Large (Negative) H 05/01/17 07:30 Urine Nitrite Positive (Negative) A 05/01/17 07:30 Urine Bilirubin Small (Negative) H 05/01/17 07:30 Ur Leukocyte Esterase Moderate (Negative) H 05/01/17 07:30 Urine Microscopic RBC 3-5 per hpf (0-3) H 05/01/17 07:30 Urine Microscopic WBC 15-30 per hpf (0-3) H 05/01/17 07:30 Ur Squamous Epith Cells Moderate per lpf (None-Few) H 05/01/17 07:30 Urine Bacteria Many per hpf (None-Few) H 05/01/17 07:30 Ur Culture Indicated? YES (NO) A 05/01/17 07:30 Vancomycin Trough 20.7 mcg/mL (10-20) H* 05/02/17 Unknown Salicylates < 5.0 mg/dL (15-30) L 04/28/17 14:37 Acetaminophen 1.0 mcg/mL (10-30) L 04/28/17 14:37 - Microbiology Findings Microbiology Findings: Microbiology, Last 48 Hours 05/01/17 07:30 Urine Culture - Final Urine,Clean Catch No growth. - Clinical Findings Intake & Output: Intake & Output 05/01/17 05/01/17 05/02/17 15:59 23:59 07:59 Intake Total 780 / 780 214.2 / 214.2 218.8 / 218.8 Output Total 940 / 940 560 / 560 485 / 485 Balance -160 / -160 -345.8 / -345.8 -266.2 / -266.2 Weight 153.1 kg - VTE Documentation of Mechanical Device: Venous foot pump, device
[2017-05-02] MEDS: Piperacillin/Tazobactam 3.375 GM in D5% in Water (Mini-Bag+) 100 ML IVPB SCH (08:12)
[2017-05-02] MEDS: Albumin 25% 25gram/100mL 25 GM/100 ML IV.SOLN IVPB SCH (08:12)
[2017-05-02] MEDS: Pantoprazole 40 MG VIAL IVP SCH (08:13)
[2017-05-02] MEDS: Hydrocortisone Sodium Succ 100 MG/2 ML VIAL IVP SCH ×3 (08:14→23:41)
--- NOTE | 2017-05-02 08:15 | Palliative Progress Note ---
Date of Encounter: 05/02/17 Time of Encounter: 07:05 - Assessment and plan (1) UTI (urinary tract infection) Current Visit: No Status: Acute Assessment and plan: Holter negative, white count has gone down. The patient does appear to be better today. pain May also be due to the colitis. Plan per intensive care team. Qualifiers: Urinary tract infection type: site unspecified Hematuria presence: with hematuria Qualified Code(s): N39.0 - Urinary tract infection, site not specified; R31.9 - Hematuria, unspecified (2) Goals of care, counseling/discussion Current Visit: Yes Status: Acute Assessment and plan: She is full code at this time. she is improving, goal of care has been for her to return home. However she may not be able to do so, in that the family may not be able to take care of her. He has however made it clear to the family she would not want to be in a [facility]. This will be an ongoing discussion. (3) Abdominal pain Current Visit: No Status: Acute Assessment and plan: Due to colitis, is somewhat better today continue to follow plan per hospitalist and medical care team. Qualifiers: Abdominal location: unspecified location Qualified Code(s): R10.9 - Unspecified abdominal pain (4) DEAN (acute kidney injury) Current Visit: Yes Status: Acute Assessment and plan: GFR is improving, patient is on Sintia, he is now making an extremely small amount of urine. scant in nature it is the first urine for her that I have seen. She is being followed by nephrology. - Time Spent With Patient Total time spent is greater than 50% in coordination of care (as documented) at patient's floor/unit and/or counseling patient: - Subjective Interval history: Looking better this morning. The patient is awake and alert and able to discuss things. Does complain of being cold, Desi sunshine is helping. She relates that she has an unusual sleeping schedule which did cause her some problems last night. He has no complaints of at this time. Other than that being uncomfortable. - Constitutional Vitals: Abnormal lab results WBC 15.4 K/mcL (4.3-11.1) H 05/02/17 05:19 RBC 3.42 M/mcL (3.82-4.97) L 05/02/17 05:19 Hgb 9.3 g/dL (11.5-15.4) L 05/02/17 05:19 Hct 29.2 % (35.3-44.9) L 05/02/17 05:19 MCH 27.2 pg (28.0-33.3) L 05/02/17 05:19 RDW 17.2 % (11.5-14.5) H 05/02/17 05:19 Plt Count 65 K/mcL (140-400) L 05/02/17 05:19 MPV 12.5 fL (9.4-12.4) H 05/02/17 05:19 Band Neutrophils % 22.0 % (0-4) H 04/29/17 03:30 Metamyelocytes % 5.0 % (0) H 04/28/17 12:00 Myelocytes % 1.0 % (0) H 04/28/17 12:00 Neutrophils # 12.0 K/mcL (1.6-8.9) H 05/02/17 05:19 Lymphocytes # 0.5 K/mcL (0.6-4.6) L 05/02/17 05:19 Monocytes # 2.8 K/mcL (0.0-1.3) H 05/02/17 05:19 Nucleated RBCs/100 WBC 0.1 /100 WBC (0) H 05/02/17 05:19 Toxic Vacuolation Present (Not Present) A 04/29/17 03:30 Dohle Bodies Present (Not Present) A 04/29/17 03:30 Platelet Estimate Decreased (Normal) L 05/01/17 09:55 Immature Plt Fraction 17.1 % (1.1-6.1) H 05/02/17 05:19 Anisocytosis 1+ (Not Present) A 04/30/17 03:30 APTT 49.8 Seconds (26.0-36.0) H 05/02/17 Unknown Fibrinogen 102 mg/dL (169-393) L 04/29/17 03:30 ABG pO2 65 mmHg (85-104) L 04/30/17 08:31 ABG O2 Saturation 92 % (95-98) L 04/30/17 08:31 Carbon Dioxide 30 mEq/L (19-29) H 05/02/17 Unknown Creatinine 1.15 mg/dL (0.57-1.11) H 05/02/17 Unknown Est GFR ( Amer) 57 (> 60) L 05/02/17 Unknown Est GFR (Non-Af Amer) 47 (> 60) L 05/02/17 Unknown Glucose 125 mg/dL (70-99) H 05/02/17 Unknown POC Glucose 116 (58-89) H 05/01/17 23:34 Calcium 8.3 mg/dL (8.6-10.8) L 05/02/17 Unknown Ionized Calcium 1.12 mmol/L (1.15-1.35) L 05/02/17 Unknown Phosphorus 1.6 mg/dL (2.3-4.7) L 05/02/17 Unknown Total Bilirubin 2.2 mg/dL (0.2-1.2) H 05/02/17 05:19 Direct Bilirubin 2.3 mg/dL (0.0-0.5) H 04/30/17 03:30 AST 41 Units/L (5-34) H 05/02/17 05:19 ALT 104 Units/L (0-55) H 05/02/17 05:19 Alkaline Phosphatase 158 Units/L (38-126) H 05/02/17 05:19 Troponin I 0.16 ng/mL (0-0.03) H* 04/28/17 21:00 Serum Total Protein 5.4 g/dL (6.0-8.3) L 05/02/17 05:19 Albumin 3.1 g/dL (3.5-5.0) L D 05/02/17 05:19 Globulin 2.3 g/dL (2.4-3.5) L 05/02/17 05:19 Urine Clarity Slightly Cloudy (Clear) A 05/01/17 07:30 Urine Protein 100 mg/dL (Neg-Trace) H 05/01/17 07:30 Urine Glucose (UA) 100 mg/dL (Normal) H 05/01/17 07:30 Urine Ketones Trace mg/dL (Negative) H 05/01/17 07:30 Urine Blood Large (Negative) H 05/01/17 07:30 Urine Nitrite Positive (Negative) A 05/01/17 07:30 Urine Bilirubin Small (Negative) H 05/01/17 07:30 Ur Leukocyte Esterase Moderate (Negative) H 05/01/17 07:30 Urine Microscopic RBC 3-5 per hpf (0-3) H 05/01/17 07:30 Urine Microscopic WBC 15-30 per hpf (0-3) H 05/01/17 07:30 Ur Squamous Epith Cells Moderate per lpf (None-Few) H 05/01/17 07:30 Urine Bacteria Many per hpf (None-Few) H 05/01/17 07:30 Ur Culture Indicated? YES (NO) A 05/01/17 07:30 Vancomycin Trough 20.7 mcg/mL (10-20) H* 05/02/17 Unknown Salicylates < 5.0 mg/dL (15-30) L 04/28/17 14:37 Acetaminophen 1.0 mcg/mL (10-30) L 04/28/17 14:37 General appearance: Present: no acute distress - Head Head exam: Present: atraumatic, normal inspection - Eye Eye exam: Present: normal appearance - ENT ENT exam: Present: mucous membranes moist - Respiratory Respiratory exam: Present: CTAB - Cardiovascular Cardiovascular exam: Present: RRR - GI/Abdominal GI/Abdominal exam: Present: hypoactive bowel sounds, soft. Absent: tenderness - Extremities Exam Extremities exam: Present: pedal edema. Absent: tenderness - Neurological Exam Neurological exam: Present: alert - Psychiatric Psychiatric exam: Absent: agitated, anxious - Skin Skin exam: Present: dry, warm Palliative Quality Palliative Quality: Screen for Code Status: Yes, Screen for Goals of Care: Yes, Screen for Pain: Yes, If Pain Regimen Started, Initiate Bowel Regimen: Yes, Screen for Nausea/Vomitting: Yes Code Status: 04/28/17 15:03 Resuscitation Status: Active [RES] Routine Comment: Resuscitation Status: Full Code - Labs CBC & Chem 7: 05/02/17 05:19 05/02/17 Unknown Labs: Laboratory Results - last 24 hr 05/01/17 05/01/17 05/01/17 07:30 09:55 19:17 WBC 23.3 H RBC 3.60 L Hgb 10.0 L Hct 30.6 L MCV 85.0 MCH 27.8 L MCHC 32.7 RDW 17.1 H Plt Count 69 L MPV 12.7 H Immature Gran % 2.4 Seg Neutrophils % 88.5 Lymphocytes % 1.8 Monocytes % 7.1 Eosinophils % 0.0 Basophils % 0.2 Neutrophils # 20.6 H Lymphocytes # 0.4 L Monocytes # 1.7 H Eosinophils # 0.0 Basophils # 0.1 Nucleated RBCs/100 WBC 0.1 H Platelet Estimate Decreased L Immature Plt Fraction 14.3 H PT INR APTT Sodium Potassium Chloride Carbon Dioxide BUN Creatinine Est GFR ( Amer) Est GFR (Non-Af Amer) BUN/Creatinine Ratio Glucose POC Glucose 110 H Calculated Osmolality Calcium Ionized Calcium Phosphorus Magnesium Total Bilirubin AST ALT Alkaline Phosphatase Serum Total Protein Albumin Globulin Albumin/Globulin Ratio Urine Color Yellow Urine Clarity Slightly Cloudy A Urine pH 5.5 Ur Specific [place] 1.023 Urine Protein 100 H Urine Glucose (UA) 100 H Urine Ketones Trace H Urine Blood Large H Urine Nitrite Positive A Urine Bilirubin Small H Urine Urobilinogen Normal Ur Leukocyte Esterase Moderate H Urine Microscopic RBC 3-5 H Urine Microscopic WBC 15-30 H Ur Squamous Epith Cells Moderate H Urine Bacteria Many H Hyaline Casts None Seen Ur Culture Indicated? YES A Vancomycin Trough 05/01/17 05/02/17 05/02/17 23:34 05:19 05:19 WBC 15.4 H RBC 3.42 L Hgb 9.3 L Hct 29.2 L MCV 85.4 MCH 27.2 L MCHC 31.8 RDW 17.2 H Plt Count 65 L MPV 12.5 H Immature Gran % 0.3 Seg Neutrophils % 78.2 Lymphocytes % 2.9 Monocytes % 18.4 Eosinophils % 0.1 Basophils % 0.1 Neutrophils # 12.0 H Lymphocytes # 0.5 L Monocytes # 2.8 H Eosinophils # 0.0 Basophils # 0.0 Nucleated RBCs/100 WBC 0.1 H Platelet Estimate Immature Plt Fraction 17.1 H PT INR APTT Sodium TNP Potassium TNP Chloride TNP Carbon Dioxide TNP BUN TNP Creatinine TNP Est GFR ( Amer) TNP Est GFR (Non-Af Amer) TNP BUN/Creatinine Ratio TNP Glucose TNP POC Glucose 116 H Calculated Osmolality Calcium TNP Ionized Calcium Phosphorus Magnesium Total Bilirubin 2.2 H AST 41 H ALT 104 H Alkaline Phosphatase 158 H Serum Total Protein 5.4 L Albumin 3.1 L D Globulin 2.3 L Albumin/Globulin Ratio 1.3 Urine Color Urine Clarity Urine pH Ur Specific [place] Urine Protein Urine Glucose (UA) Urine Ketones Urine Blood Urine Nitrite Urine Bilirubin Urine Urobilinogen Ur Leukocyte Esterase Urine Microscopic RBC Urine Microscopic WBC Ur Squamous Epith Cells Urine Bacteria Hyaline Casts Ur Culture Indicated? Vancomycin Trough 05/02/17 05/02/17 05/02/17 Unknown Unknown Unknown WBC RBC Hgb Hct MCV MCH MCHC RDW Plt Count MPV Immature Gran % Seg Neutrophils % Lymphocytes % Monocytes % Eosinophils % Basophils % Neutrophils # Lymphocytes # Monocytes # Eosinophils # Basophils # Nucleated RBCs/100 WBC Platelet Estimate Immature Plt Fraction PT 10.7 INR 1.0 APTT 49.8 H Sodium Potassium Chloride Carbon Dioxide BUN Creatinine Est GFR ( Amer) Est GFR (Non-Af Amer) BUN/Creatinine Ratio Glucose POC Glucose Calculated Osmolality Calcium Ionized Calcium 1.12 L Phosphorus 1.6 L Magnesium 2.3 Total Bilirubin AST ALT Alkaline Phosphatase Serum Total Protein Albumin Globulin Albumin/Globulin Ratio Urine Color Urine Clarity Urine pH Ur Specific [place] Urine Protein Urine Glucose (UA) Urine Ketones Urine Blood Urine Nitrite Urine Bilirubin Urine Urobilinogen Ur Leukocyte Esterase Urine Microscopic RBC Urine Microscopic WBC Ur Squamous Epith Cells Urine Bacteria Hyaline Casts Ur Culture Indicated? Vancomycin Trough 20.7 H* 05/02/17 Unknown WBC RBC Hgb Hct MCV MCH MCHC RDW Plt Count MPV Immature Gran % Seg Neutrophils % Lymphocytes % Monocytes % Eosinophils % Basophils % Neutrophils # Lymphocytes # Monocytes # Eosinophils # Basophils # Nucleated RBCs/100 WBC Platelet Estimate Immature Plt Fraction PT INR APTT Sodium 138 Potassium 4.1 Chloride 103 Carbon Dioxide 30 H BUN 11 Creatinine 1.15 H Est GFR ( Amer) 57 L Est GFR (Non-Af Amer) 47 L BUN/Creatinine Ratio 10 Glucose 125 H POC Glucose Calculated Osmolality 287 Calcium 8.3 L Ionized Calcium Phosphorus Magnesium Total Bilirubin AST ALT Alkaline Phosphatase Serum Total Protein Albumin Globulin Albumin/Globulin Ratio Urine Color Urine Clarity Urine pH Ur Specific [place] Urine Protein Urine Glucose (UA) Urine Ketones Urine Blood Urine Nitrite Urine Bilirubin Urine Urobilinogen Ur Leukocyte Esterase Urine Microscopic RBC Urine Microscopic WBC Ur Squamous Epith Cells Urine Bacteria Hyaline Casts Ur Culture Indicated? Vancomycin Trough - Impressions Impressions Chest X-Ray 04/29/17 04:00 IMPRESSION: 1. Stable lines and tubes. 2. Worsening left base opacity with pleural effusion, otherwise, stable cardiopulmonary status. D/ / 04/29/2017 07:49:03 Gudelia Valero MD / tiffanie Interpreting Provider: Gudelia Valero MD - ABG Interpretation ABG results: ABG ABG pH 7.37 pH Units (7.32-7.45) 04/30/17 08:31 ABG pCO2 42 mmHg (35-45) 04/30/17 08:31 ABG pO2 65 mmHg (85-104) L 04/30/17 08:31 ABG O2 Saturation 92 % (95-98) L 04/30/17 08:31 PT/INR, D-dimer PT 10.7 Seconds (9.4-12.1) 05/02/17 Unknown Consult Discharge Plan - Plan Referrals: NONE,PCP [Primary Care Provider] -
--- NOTE | 2017-05-02 09:52 | Nephrology Progress Note ---
Date of Encounter: 05/02/17 Time of Encounter: 09:49 - Assessment and Plan (1) DEAN (acute kidney injury) Current Visit: Yes Status: Acute Patient tolerating UF of 100cc/hour. Ok to switch to iHD as needed. Can discontinue whenever the patient is ready to leave the ICU. Discussed with the team. (2) Acute respiratory failure with hypoxia and hypercarbia Current Visit: Yes Status: Acute Patient tolerating nasal cannula. (3) Atrial fibrillation with RVR Current Visit: Yes Status: Acute Rate is controlled. (4) Sepsis Current Visit: No Status: Acute Etiology unclear. Possibly UTI. Per primary team. Qualifiers: Sepsis type: sepsis due to unspecified organism Qualified Code(s): A41.9 - Sepsis, unspecified organism (5) Hypertension Current Visit: No Status: Chronic As sepsis resolves monitor for the need for antihypertensive medication. Qualifiers: Hypertension type: essential hypertension Qualified Code(s): I10 - Essential (primary) hypertension Subjective Principal diagnosis: Septic shock Interval history: Patient seen. Patient still on CVVHD. Her only complaint is that the BP cuff is bothering her. Objective - Vital Signs Vital signs: Vital Signs Temp Pulse Resp BP Pulse Ox 05/02/17 09:00 79 15 143/117 95 05/02/17 08:00 98.2 F 78 21 154/83 94 05/02/17 07:00 73 20 117/78 94 05/02/17 06:00 80 20 120/92 93 05/02/17 05:00 72 18 136/84 96 05/02/17 04:00 98.3 F 69 18 132/91 96 05/02/17 03:24 84 05/02/17 03:00 77 20 135/81 96 05/02/17 02:00 70 20 119/73 90 05/02/17 01:00 74 18 123/83 94 05/02/17 00:00 98.1 F 70 16 128/84 98 05/01/17 23:45 64 05/01/17 23:00 64 16 116/65 97 05/01/17 22:00 68 18 104/54 94 05/01/17 21:00 71 16 126/55 94 05/01/17 20:00 99.1 F 92 16 137/75 98 05/01/17 19:34 84 05/01/17 19:00 84 21 127/71 96 05/01/17 18:00 93 16 101/68 97 05/01/17 17:00 82 16 112/65 97 05/01/17 16:00 98.4 F 82 16 139/73 97 05/01/17 15:00 85 16 142/67 97 05/01/17 14:00 89 16 106/82 97 05/01/17 13:00 98.2 F 76 16 126/80 97 05/01/17 12:00 89 16 130/77 95 05/01/17 11:00 75 16 137/82 95 05/01/17 10:00 70 16 128/81 95 Intake and Output 05/01/17 05/02/17 05/02/17 23:59 07:59 15:59 Intake Total 214.2 / 214.2 218.8 / 218.8 100 / 100 Output Total 560 / 560 485 / 485 242 / 242 Balance -345.8 / -345.8 -266.2 / -266.2 -142 / -142 Intake: IV Fluids 214.2 / 214.2 218.8 / 218.8 100 / 100 PrismaSATE BGK 4/2.5 5, 0 / 0 000 ML @ 1250 mls/hr CRRT CONT JENAN Rx#:[id number] Vasostrict 40 UNIT In 0 / 0 Dextrose 5% 100 ML @ 0.03 UNIT/MIN 4.59 mls/hr IV .[id number] JENNA Rx#: [id number] PRECEDEX Premix 400 mcg 14.2 / 14.2 18.8 / 18.8 In 100 ml @ 0.2 MCG/KG/HR 7.348 mls/hr IVC . [id number] JENNA Rx#: [id number] Levophed 8 MG In Dextrose 0 / 0 5% 250 ML @ 21 MCG/MIN 40.63 mls/hr IVC CONT JENNA Rx#:[id number] Flexbumin 25 gm In 100 ml 100 / 100 100 / 100 100 / 100 @ 60 mls/hr IVPB Q8HR JENNA Rx#:[id number] Zosyn 3.375 GM In 100 / 100 100 / 100 Dextrose 5% (Minibag+) 100 ML 100 ML @ 25 mls/hr IVPB Q8H JENNA Rx#: [id number] Output: Urine 0 / 0 0 / 0 0 / 0 Urethral (Haji) 0 / 0 0 / 0 0 / 0 Sintia 555 / 555 485 / 485 242 / 242 Catheter 5 / 5 0 / 0 0 / 0 Other: Meal Dinner Percent of Meal Consumed 50% Weight 153.1 kg Blood Glucose* 110 116 102 Patient Weight 05/02/17 23:59 Weight 153.1 kg - General Appearance General appearance: Present: well-developed, well-nourished, obese EENT: Present: ATNC Neck: Present: supple Respiratory: Present: course breath sounds Cardiology: Present: edema, regular rate, regular rhythm Dialysis Vascular Access: Venous Catheter Gastrointestinal: Present: obese Integumentary: Present: warm and dry Neurologic: Present: alert and oriented x3 Musculoskeletal: Present: no cyanosis - Lab 05/02/17 05:19 05/02/17 Unknown Most recent lab results ABG pH 7.37 pH Units (7.32-7.45) 04/30/17 08:31 ABG pCO2 42 mmHg (35-45) 04/30/17 08:31 ABG pO2 65 mmHg (85-104) L 04/30/17 08:31 ABG HCO3 24.3 mEQ/L (21-27) 04/30/17 08:31 ABG O2 Saturation 92 % (95-98) L 04/30/17 08:31 Calcium 8.3 mg/dL (8.6-10.8) L 05/02/17 Unknown Phosphorus 1.6 mg/dL (2.3-4.7) L 05/02/17 Unknown Magnesium 2.3 mg/dL (1.6-2.6) 05/02/17 Unknown Urine Creatinine 57 mg/dL 04/29/17 23:05 Urine Sodium 88.0 mEq/L 04/29/17 23:05 - VTE Documentation of Mechanical Device: Venous foot pump, device Consult Discharge Plan - Plan Referrals: NONE,PCP [Primary Care Provider] -
--- NOTE | 2017-05-02 14:08 | Cardiology Progress Note ---
Date of Encounter: 05/02/17 Time of Encounter: 14:07 Assessment and Plan (1) Cardiomyopathy Current Visit: Yes Status: Acute Cardiomyopathy in setting of severe illness. Mild enzyme elevation likely related to DEAN, etc. Presentation not c/w ACS. LVEF estimated to be 35%. Recommend a repeat limited study since overall condition improving. If EF remains significantly reduced, consider ischemic evaluation early next week. Start aspirin 81 mg daily. Since hemodynamic better, start BB. LFTs elevated - hold statin. Further recommendations to follow. Qualifiers: Cardiomyopathy type: unspecified Qualified Code(s): I42.9 - Cardiomyopathy , unspecified Discussion w patient/family: The assessment and plan as outlined above was discussed with the patient and/or family members who expressed understanding and agreement. All questions were answered. Thank you for involving us in the care of your patient. Please call with any questions. Subjective Principal diagnosis: Septic shock Interval history: Overall, continues to improve. Remains off pressors. Awake, mentation baseline, visiting with family. Denies chest pain. Objective General: Conversant, No Apparent Distress HEENT: Atraumatic, Normocephaly, Mucus Membranes Moist Neck: No JVD, Normal carotid pulses Cardiac: Other (Distant. ) Lungs: Other (Shallow. ) Neuro: Alert and responsive, No focal deficits noted Abdomen: Soft, Non-Tender, Other (obese) Extremities: No Clubbing, No Cyanosis, Other (Edema) Results 05/02/17 05:19 05/02/17 Unknown Lab Results 05/02/17 05/02/17 05/02/17 05:19 05:19 Unknown WBC 15.4 H Hgb 9.3 L Hct 29.2 L Plt Count 65 L INR APTT Sodium TNP Potassium TNP Chloride TNP Carbon Dioxide TNP BUN TNP Creatinine TNP Glucose TNP Calcium TNP Magnesium 2.3 Total Bilirubin 2.2 H AST 41 H ALT 104 H Alkaline Phosphatase 158 H 05/02/17 05/02/17 Unknown Unknown WBC Hgb Hct Plt Count INR 1.0 APTT 49.8 H Sodium 138 Potassium 4.1 Chloride 103 Carbon Dioxide 30 H BUN 11 Creatinine 1.15 H Glucose 125 H Calcium 8.3 L Magnesium Total Bilirubin AST ALT Alkaline Phosphatase - Imaging and Cardiology Echo: report reviewed - EKG Interpretation EKG results cardiology: personally reviewed - VTE Documentation of Mechanical Device: Venous foot pump, device Consult Discharge Plan - Plan Referrals: NONE,PCP [Primary Care Provider] -
[2017-05-02] MEDS ORDERED: Metoprolol XL (24 HR) Succ 25 MG TAB.ER.24H PO SCH (14:15)
[2017-05-02] MEDS ORDERED: Aspirin Enteric Coated 81 MG Tablet PO SCH (14:15)
[2017-05-02] MEDS ORDERED: D5% in Water 1,000 ML IVC PRN ×2 (14:34→17:45)
[2017-05-02] MEDS ORDERED: PrismaSATE BGK 4/2.5 5,000 ML CRRT SCH ×2 (14:34)
[2017-05-02] MEDS ORDERED: *HR* FentaNYL (PF) 100 MCG/2 ML VIAL IVP PRN (14:34)
[2017-05-02] MEDS ORDERED: Calcium Gluconate 1,000 MG in D5% in Water 100 ML IVPB PRN (14:34)
[2017-05-02] MEDS ORDERED: *HR* Dextrose 50 % in Water (Syg) 50 ML SYRINGE IVP PRN ×3 (14:34→17:45)
[2017-05-02] MEDS ORDERED: *HR* Heparin 5,000 UNIT/ML VIAL IV PRN (14:34)
[2017-05-02] MEDS ORDERED: Fluticasone Propionate Nasal 50 MCG/SPRAY BOTTLE NS PRN ×3 (14:34→17:49)
[2017-05-02] MEDS ORDERED: Sodium Phosphate 30 MMOL in D5% in Water 100 ML IVPB PRN (14:34)
[2017-05-02] MEDS ORDERED: Magnesium Sulfate 2 GM in D5% in Water 100 ML IVPB PRN (14:34)
[2017-05-02] MEDS ORDERED: Vasopressin 40 UNIT in D5% in Water 100 ML IV SCH (14:34)
[2017-05-02] MEDS ORDERED: Dexmedetomidine HCl 400 MCG/100 ML MLS IVC SCH (14:34)
[2017-05-02] MEDS ORDERED: Dextrose Gel 15 GM PO PRN ×6 (14:34→17:46)
[2017-05-02] MEDS ORDERED: Ondansetron 4 MG/2 ML VIAL IVP PRN ×3 (14:34→17:49)
[2017-05-02] MEDS ORDERED: 0.9 % Sodium Chloride 1,000 ML PRIME SCH (14:34)
[2017-05-02] MEDS ORDERED: Hydrocortisone Sodium Succ 100 MG/2 ML VIAL IVP SCH ×2 (16:00)
[2017-05-02] MEDS ORDERED: Albumin 25% 25gram/100mL 25 GM/100 ML IV.SOLN IVPB SCH ×2 (16:00→17:45)
[2017-05-02] MEDS ORDERED: Piperacillin/Tazobactam 3.375 GM in D5% in Water (Mini-Bag+) 100 ML IVPB SCH ×2 (16:00→18:00)
[2017-05-02] MEDS ORDERED: Acetaminophen 325 MG TABLET PO PRN (17:31)
[2017-05-02] MEDS ORDERED: *HR* Heparin 5,000 UNIT/ML VIAL SQ SCH ×2 (22:00)
[2017-05-03] MEDS: Albumin 25% 25gram/100mL 25 GM/100 ML IV.SOLN IVPB SCH ×4 (00:01→23:12)
[2017-05-03] MEDS: Hydrocortisone Sodium Succ 100 MG/2 ML VIAL IVP SCH ×4 (00:06→20:00)
[2017-05-03] MEDS: *HR* FentaNYL (PF) 100 MCG/2 ML VIAL IVP PRN ×2 (02:24→03:38)
[2017-05-03] MEDS ORDERED: *HR* FentaNYL (PF) 100 MCG/2 ML VIAL IVP PRN (04:01)
[2017-05-03] MEDS: Pantoprazole 40 MG VIAL IVP SCH (05:31)
[2017-05-03] MEDS: *HR* Heparin 5,000 UNIT/ML VIAL SQ SCH ×3 (05:35→22:00)
[2017-05-03] MEDS ORDERED: *HR* HYDROmorphone (PF) 1 MG/ML SYRINGE IVP ONE (06:03)
[2017-05-03 07:29] LABS: Activated Partial Thrombo Time 32.6 Seconds (26.0-36.0)
[2017-05-03 07:39] LABS: Prothrombin Time 10.4 Seconds (9.4-12.1)
--- NOTE | 2017-05-03 07:40 | Palliative Progress Note ---
Date of Encounter: 05/03/17 Time of Encounter: 06:50 - Assessment and plan (1) UTI (urinary tract infection) Current Visit: No Status: Acute Assessment and plan: Culture negative, white count has gone down as of yesterday no labs today yet.. The patient does appear to be better today. pain May also be due to the colitis. Plan per hospitalist care team. Qualifiers: Urinary tract infection type: site unspecified Hematuria presence: with hematuria Qualified Code(s): N39.0 - Urinary tract infection, site not specified; R31.9 - Hematuria, unspecified (2) Goals of care, counseling/discussion Current Visit: Yes Status: Acute Assessment and plan: She is full code at this time. she is improving, goal of care has been for her to return home. However she may not be able to do so, in that the family may not be able to take care of her. He has however made it clear to the family she would not want to be in a retirement. This will be an ongoing discussion. At this point the patient is getting better overall, however her urine output continues to be nil. Care will follow from a distance (3) Abdominal pain Current Visit: No Status: Acute Assessment and plan: Due to colitis, is somewhat better today continue to follow plan per hospitalist team. Qualifiers: Abdominal location: unspecified location Qualified Code(s): R10.9 - Unspecified abdominal pain (4) DEAN (acute kidney injury) Current Visit: Yes Status: Acute Assessment and plan: GFR is improving, the patient is still not making urine and an acceptable rate. In fact the very very small amount within the bag has been there at least since yesterday. Abs are not back yet today. Nephrology is following.. - Time Spent With Patient Total time spent is greater than 50% in coordination of care (as documented) at patient's floor/unit and/or counseling patient: - Subjective Interval history: Looking better this morning. The patient is awake and alert and able to discuss things. He states this bed is better than the one she had in the ICU but only slightly. Starting to eat. And overall she is feeling somewhat better. - Constitutional Vitals: Abnormal lab results WBC 15.4 K/mcL (4.3-11.1) H 05/02/17 05:19 RBC 3.42 M/mcL (3.82-4.97) L 05/02/17 05:19 Hgb 9.3 g/dL (11.5-15.4) L 05/02/17 05:19 Hct 29.2 % (35.3-44.9) L 05/02/17 05:19 MCH 27.2 pg (28.0-33.3) L 05/02/17 05:19 RDW 17.2 % (11.5-14.5) H 05/02/17 05:19 Plt Count 65 K/mcL (140-400) L 05/02/17 05:19 MPV 12.5 fL (9.4-12.4) H 05/02/17 05:19 Band Neutrophils % 22.0 % (0-4) H 04/29/17 03:30 Metamyelocytes % 5.0 % (0) H 04/28/17 12:00 Myelocytes % 1.0 % (0) H 04/28/17 12:00 Neutrophils # 12.0 K/mcL (1.6-8.9) H 05/02/17 05:19 Lymphocytes # 0.5 K/mcL (0.6-4.6) L 05/02/17 05:19 Monocytes # 2.8 K/mcL (0.0-1.3) H 05/02/17 05:19 Nucleated RBCs/100 WBC 0.1 /100 WBC (0) H 05/02/17 05:19 Toxic Vacuolation Present (Not Present) A 04/29/17 03:30 Dohle Bodies Present (Not Present) A 04/29/17 03:30 Platelet Estimate Decreased (Normal) L 05/01/17 09:55 Immature Plt Fraction 17.1 % (1.1-6.1) H 05/02/17 05:19 Anisocytosis 1+ (Not Present) A 04/30/17 03:30 APTT 49.8 Seconds (26.0-36.0) H 05/02/17 Unknown Fibrinogen 102 mg/dL (169-393) L 04/29/17 03:30 ABG pO2 65 mmHg (85-104) L 04/30/17 08:31 ABG O2 Saturation 92 % (95-98) L 04/30/17 08:31 Carbon Dioxide 30 mEq/L (19-29) H 05/02/17 Unknown Creatinine 1.15 mg/dL (0.57-1.11) H 05/02/17 Unknown Est GFR ( Amer) 57 (> 60) L 05/02/17 Unknown Est GFR (Non-Af Amer) 47 (> 60) L 05/02/17 Unknown Glucose 125 mg/dL (70-99) H 05/02/17 Unknown POC Glucose 102 (58-89) H 05/02/17 08:40 Calcium 8.3 mg/dL (8.6-10.8) L 05/02/17 Unknown Ionized Calcium 1.12 mmol/L (1.15-1.35) L 05/02/17 Unknown Phosphorus 1.6 mg/dL (2.3-4.7) L 05/02/17 Unknown Total Bilirubin 2.2 mg/dL (0.2-1.2) H 05/02/17 05:19 Direct Bilirubin 2.3 mg/dL (0.0-0.5) H 04/30/17 03:30 AST 41 Units/L (5-34) H 05/02/17 05:19 ALT 104 Units/L (0-55) H 05/02/17 05:19 Alkaline Phosphatase 158 Units/L (38-126) H 05/02/17 05:19 Troponin I 0.16 ng/mL (0-0.03) H* 04/28/17 21:00 Serum Total Protein 5.4 g/dL (6.0-8.3) L 05/02/17 05:19 Albumin 3.1 g/dL (3.5-5.0) L D 05/02/17 05:19 Globulin 2.3 g/dL (2.4-3.5) L 05/02/17 05:19 Urine Clarity Slightly Cloudy (Clear) A 05/01/17 07:30 Urine Protein 100 mg/dL (Neg-Trace) H 05/01/17 07:30 Urine Glucose (UA) 100 mg/dL (Normal) H 05/01/17 07:30 Urine Ketones Trace mg/dL (Negative) H 05/01/17 07:30 Urine Blood Large (Negative) H 05/01/17 07:30 Urine Nitrite Positive (Negative) A 05/01/17 07:30 Urine Bilirubin Small (Negative) H 05/01/17 07:30 Ur Leukocyte Esterase Moderate (Negative) H 05/01/17 07:30 Urine Microscopic RBC 3-5 per hpf (0-3) H 05/01/17 07:30 Urine Microscopic WBC 15-30 per hpf (0-3) H 05/01/17 07:30 Ur Squamous Epith Cells Moderate per lpf (None-Few) H 05/01/17 07:30 Urine Bacteria Many per hpf (None-Few) H 05/01/17 07:30 Ur Culture Indicated? YES (NO) A 05/01/17 07:30 Vancomycin Trough 20.7 mcg/mL (10-20) H* 05/02/17 Unknown Salicylates < 5.0 mg/dL (15-30) L 04/28/17 14:37 Acetaminophen 1.0 mcg/mL (10-30) L 04/28/17 14:37 General appearance: Present: no acute distress - Head Head exam: Present: atraumatic, normal inspection - Eye Eye exam: Present: normal appearance - ENT ENT exam: Present: mucous membranes moist - Respiratory Respiratory exam: Present: decreased breath sounds - Cardiovascular Cardiovascular exam: Present: RRR - GI/Abdominal GI/Abdominal exam: Present: normal bowel sounds, soft, tenderness (Very mild) - Extremities Exam Extremities exam: Present: pedal edema. Absent: tenderness - Neurological Exam Neurological exam: Present: alert - Psychiatric Psychiatric exam: Present: normal affect, normal mood. Absent: agitated, anxious - Skin Skin exam: Present: dry, warm Palliative Quality Palliative Quality: Screen for Code Status: Yes, Screen for Goals of Care: Yes, Screen for Pain: Yes, If Pain Regimen Started, Initiate Bowel Regimen: Yes, Screen for Nausea/Vomitting: Yes Code Status: 04/28/17 15:03 Resuscitation Status: Active [RES] Routine Comment: Resuscitation Status: Full Code - Labs CBC & Chem 7: 05/02/17 05:19 05/02/17 Unknown Labs: Laboratory Results - last 24 hr 05/02/17 08:40 POC Glucose 102 H - ABG Interpretation ABG results: ABG ABG pH 7.37 pH Units (7.32-7.45) 04/30/17 08:31 ABG pCO2 42 mmHg (35-45) 04/30/17 08:31 ABG pO2 65 mmHg (85-104) L 04/30/17 08:31 ABG O2 Saturation 92 % (95-98) L 04/30/17 08:31 PT/INR, D-dimer PT 10.7 Seconds (9.4-12.1) 05/02/17 Unknown Consult Discharge Plan - Plan Referrals: NONE,PCP [Primary Care Provider] -
[2017-05-03 08:06] LABS: Ionized Calcium 1.18 mmol/L (1.15-1.35)
[2017-05-03 08:17] LABS: Magnesium 2.4 mg/dL (1.6-2.6); Phosphorous 3.4 mg/dL (2.3-4.7)
[2017-05-03 08:41] LABS: Red Cell Distribution Width 17.2 % (11.5-14.5)
[2017-05-03 08:42] LABS: Basophils % 0.2 %; Hematocrit 26.4 % (35.3-44.9); Hemoglobin 8.4 g/dL (11.5-15.4); Immature Granulocytes % 1.4 % (0-4); Lymphocytes # 2.7 K/mcL (0.6-4.6); Lymphocytes % 18.7 %; Mean Corpuscular HGB Conc 31.8 g/dL (31.6-35.5); Mean Corpuscular Hemoglobin 27.4 pg (28.0-33.3); Mean Platelet Volume 11.6 fL (9.4-12.4); Monocytes # 1.1 K/mcL (0.0-1.3); Monocytes % 7.4 %; Neutrophils # 10.3 K/mcL (1.6-8.9); Red Blood Count 3.07 M/mcL (3.82-4.97); Segmented Neutrophils % 72.3 %
[2017-05-03 08:49] LABS: Platelet Count 92 K/mcL (140-400)
[2017-05-03 08:56] LABS: Albumin 3.3 g/dL (3.5-5.0); Albumin/Globulin Ratio 1.6 (1.1-2.2); Bilirubin,Total 1.1 mg/dL (0.2-1.2); Calcium 8.7 mg/dL (8.6-10.8); Globulin 2.1 g/dL (2.4-3.5); Potassium 3.9 mEq/L (3.5-4.5); Total Protein 5.4 g/dL (6.0-8.3)
[2017-05-03 08:57] LABS: Bilirubin,Direct 1.1 mg/dL (0.0-0.5)
[2017-05-03] MEDS ORDERED: Hydrocortisone Sodium Succ 100 MG/2 ML VIAL IVP SCH ×3 (09:00)
[2017-05-03] MEDS ORDERED: Pantoprazole 40 MG VIAL IVP SCH ×2 (09:00)
--- NOTE | 2017-05-03 09:50 | Nephrology Progress Note ---
Date of Encounter: 05/03/17 Time of Encounter: 09:50 - Assessment and Plan (1) DEAN (acute kidney injury) Current Visit: Yes Status: Acute Will switch to iHD as needed. Avoid nephrotoxins. No need for dialysis today. (2) Acute respiratory failure with hypoxia and hypercarbia Current Visit: Yes Status: Acute Patient tolerating nasal cannula. (3) Atrial fibrillation with RVR Current Visit: Yes Status: Acute Rate is controlled. (4) Sepsis Current Visit: No Status: Acute Etiology unclear. Possibly UTI. Per primary team. Qualifiers: Sepsis type: sepsis due to unspecified organism Qualified Code(s): A41.9 - Sepsis, unspecified organism (5) Hypertension Current Visit: No Status: Chronic As sepsis resolves monitor for the need for antihypertensive medication. Qualifiers: Hypertension type: essential hypertension Qualified Code(s): I10 - Essential (primary) hypertension Subjective Principal diagnosis: Septic shock Interval history: Patient seen. Patient off CVVHD. She is asleep. Objective - Vital Signs Vital signs: Vital Signs Temp Pulse Resp BP Pulse Ox 05/03/17 08:03 98.6 F 63 15 121/77 95 05/03/17 03:39 98.1 F 71 20 137/78 97 05/02/17 23:57 98.2 F 76 18 133/81 96 05/02/17 21:04 99.7 F H 80 16 125/78 96 05/02/17 12:00 92 20 126/72 96 Intake and Output 05/02/17 05/03/17 05/03/17 23:59 07:59 15:59 Intake Total 100 / 100 200 / 200 Balance 100 / 100 200 / 200 Intake: IV Fluids 100 / 100 200 / 200 Flexbumin 25 gm In 100 ml 100 / 100 100 / 100 @ 60 mls/hr IVPB Q8HR JENNA Rx#:[id number] Zosyn 3.375 GM In 100 / 100 Dextrose 5% (Minibag+) 100 ML 100 ML @ 25 mls/hr IVPB Q8H JENNA Rx#: [id number] Other: Stool Size Small Stool Consistency loose liquid Stool Color Brown # Bowel Movements 1 Weight 150.9 kg Patient Weight 05/03/17 23:59 Weight 150.9 kg - General Appearance General appearance: Present: well-developed, well-nourished, obese EENT: Present: ATNC Neck: Present: supple Additional Comments: respirations are unlabored. Cardiology: Present: regular rate - Lab 05/03/17 08:33 05/03/17 08:33 Most recent lab results ABG pH 7.37 pH Units (7.32-7.45) 04/30/17 08:31 ABG pCO2 42 mmHg (35-45) 04/30/17 08:31 ABG pO2 65 mmHg (85-104) L 04/30/17 08:31 ABG HCO3 24.3 mEQ/L (21-27) 04/30/17 08:31 ABG O2 Saturation 92 % (95-98) L 04/30/17 08:31 Calcium 8.7 mg/dL (8.6-10.8) 05/03/17 08:33 Phosphorus 3.4 mg/dL (2.3-4.7) D 05/03/17 07:05 Magnesium 2.4 mg/dL (1.6-2.6) 05/03/17 07:05 Urine Creatinine 57 mg/dL 04/29/17 23:05 Urine Sodium 88.0 mEq/L 04/29/17 23:05 - VTE Documentation of Mechanical Device: Intermittent pneumatic compression device Consult Discharge Plan - Plan Referrals: NONE,PCP [Primary Care Provider] -
[2017-05-03] MEDS: Piperacillin/Tazobactam 3.375 GM in D5% in Water (Mini-Bag+) 100 ML IVPB SCH ×4 (10:05→23:11)
--- NOTE | 2017-05-03 10:49 | Internal Med Progress Note ---
<Daniel Garcia - Last Filed: 05/03/17 11:27> Date of Encounter: 05/03/17 Time of Encounter: 10:46 - Assessment and plan (1) Septic shock Current Visit: Yes Status: Acute Assessment and plan: Resolved at this time. Likely related to urinary tract infection however cultures have been negative. Patient responded well to antibiotics. We will continue for a total of 14 days given that the patient was in septic shock. (2) UTI (urinary tract infection) Current Visit: No Status: Acute Assessment and plan: Culture negative for shortness suspicion for tract infection. Patient responded well to antibiotics, continue for total of 14 days given the patient' s critical illness. Qualifiers: Urinary tract infection type: site unspecified Hematuria presence: with hematuria Qualified Code(s): N39.0 - Urinary tract infection, site not specified; R31.9 - Hematuria, unspecified (3) Transaminitis Current Visit: Yes Status: Acute Assessment and plan: Improving. Likely related to hypotension in the setting of septic shock. Hepatitis workup was negative. Patient was evaluated by GI who just recommended monitoring LFTs. We will continue to trend LFTs. If LFTs worsen and may benefit from an MRCP. (4) DEAN (acute kidney injury) Current Visit: Yes Status: Acute Assessment and plan: Patient are continuous renal replacement therapy in the intensive care unit. Creatinine is slightly elevated today compared to yesterday which is expected that the patient is off continuous renal replacement therapy. Nephrology is following and will continue to follow the patient's labs and urine output to determine if the patient is candidate for intermittent hemodialysis. Blood shots within normal limits. No evidence of acute fluid overload. No indications for dialysis at this time. (5) CHF (congestive heart failure) Current Visit: Yes Status: Acute Assessment and plan: Stable. EF decreased on admission. She was seen by cardiology and they have recommended a repeat echocardiogram that the patient's critical illness of subsided. Limited echocardiogram to assess EF has been ordered. If EF has remained decreased patient may require an ischemic evaluation. Further recommendation per cardiology. Qualifiers: Congestive heart failure type: unspecified congestive heart failure type Congestive heart failure chronicity: acute on chronic Qualified Code(s): I50.9 - Heart failure, unspecified - Subjective Interval history: Patient seen and examined at bedside. Patient was transferred out of the ICU yesterday. Patient states that she feels pretty good today. She has no specific complaints. He does feel a little uncomfortable in the bed as she normally sleeps in a chair at home but otherwise is feeling okay. She is eating and drinking well. She had a bowel movement last night. She does report some mild pain in her knees which is chronic for her. - Constitutional Vitals: Temp Pulse Resp BP Pulse Ox 98.6 F 63 15 121/77 95 05/03/17 08:03 05/03/17 08:03 05/03/17 08:03 05/03/17 08:03 05/03/17 08:03 General appearance: Present: A&O X 3, no acute distress - Respiratory Respiratory exam: Present: decreased breath sounds. Absent: rales, rhonchi, wheezes - Cardiovascular Cardiovascular exam: Present: RRR. Absent: gallop, rubs, systolic murmur - GI/Abdominal GI/Abdominal exam: Present: normal bowel sounds, soft. Absent: distended, tenderness - Neurological Exam Neurological exam: Present: alert, CN II-XII intact, oriented X3, no focal deficits Internal Medicine: Result - Labs CBC & Chem 7: 05/03/17 08:33 05/03/17 08:33 Labs: Short CBC 05/03/17 Range/Units 08:33 WBC 14.2 H (4.3-11.1) K/mcL Hgb 8.4 L (11.5-15.4) g/dL Hct 26.4 L (35.3-44.9) % Plt Count 92 L (140-400) K/mcL Neutrophils # 10.3 H (1.6-8.9) K/mcL BMP 05/03/17 08:33 Sodium 139 Potassium 3.9 Chloride 104 Carbon Dioxide 26 BUN 32 H D Creatinine 2.69 H D Glucose 112 H Calcium 8.7 Liver Function 05/03/17 Range/Units 08:33 Total Bilirubin 1.1 (0.2-1.2) mg/dL Direct Bilirubin 1.1 H (0.0-0.5) mg/dL AST 36 H (5-34) Units/L ALT 63 H (0-55) Units/L Alkaline Phosphatase 195 H (38-126) Units/L Albumin 3.3 L (3.5-5.0) g/dL - ABG Interpretation ABG results: ABG ABG pH 7.37 pH Units (7.32-7.45) 04/30/17 08:31 ABG pCO2 42 mmHg (35-45) 04/30/17 08:31 ABG pO2 65 mmHg (85-104) L 04/30/17 08:31 ABG O2 Saturation 92 % (95-98) L 04/30/17 08:31 PT/INR, D-dimer PT 10.4 Seconds (9.4-12.1) 05/03/17 07:05 - VTE Documentation of Mechanical Device: Intermittent pneumatic compression device Consult Discharge Plan - Plan Referrals: NONE,PCP [Primary Care Provider] - <Gregory Rodrigez P - Last Filed: 05/03/17 17:25> Date of Encounter: 05/03/17 - Constitutional Vitals: Temp Pulse Resp BP Pulse Ox 97.6 F 69 15 156/91 98 05/03/17 15:55 05/03/17 15:55 05/03/17 15:55 05/03/17 15:55 05/03/17 15:55 Internal Medicine: Result - Labs CBC & Chem 7: 05/03/17 08:33 05/03/17 08:33 Labs: Short CBC 05/03/17 Range/Units 08:33 WBC 14.2 H (4.3-11.1) K/mcL Hgb 8.4 L (11.5-15.4) g/dL Hct 26.4 L (35.3-44.9) % Plt Count 92 L (140-400) K/mcL Neutrophils # 10.3 H (1.6-8.9) K/mcL BMP 05/03/17 08:33 Sodium 139 Potassium 3.9 Chloride 104 Carbon Dioxide 26 BUN 32 H D Creatinine 2.69 H D Glucose 112 H Calcium 8.7 Liver Function 05/03/17 Range/Units 08:33 Total Bilirubin 1.1 (0.2-1.2) mg/dL Direct Bilirubin 1.1 H (0.0-0.5) mg/dL AST 36 H (5-34) Units/L ALT 63 H (0-55) Units/L Alkaline Phosphatase 195 H (38-126) Units/L Albumin 3.3 L (3.5-5.0) g/dL - ABG Interpretation ABG results: ABG ABG pH 7.37 pH Units (7.32-7.45) 04/30/17 08:31 ABG pCO2 42 mmHg (35-45) 04/30/17 08:31 ABG pO2 65 mmHg (85-104) L 04/30/17 08:31 ABG O2 Saturation 92 % (95-98) L 04/30/17 08:31 PT/INR, D-dimer PT 10.4 Seconds (9.4-12.1) 05/03/17 07:05 - Attending Attestation I examined this patient and my medical decision-making was reviewed with the Resident Physician. I agree with the documented findings, disposition and treatment plan as described except to the extent set forth below.
[2017-05-03] MEDS: Aspirin Enteric Coated 81 MG Tablet PO SCH (10:53)
[2017-05-03] MEDS: Metoprolol XL (24 HR) Succ 25 MG TAB.ER.24H PO SCH (10:53)
[2017-05-03] MEDS ORDERED: Perflutren Lipid Microsphere 1.3 ML in 0.9 % Sodium Chloride 8.7 ML IVP ONE (13:09)
[2017-05-03] MEDS: *HR* HYDROcodone/Acet 7.5/325 mg TABLET PO SCH ×2 (13:43→19:54)
--- NOTE | 2017-05-03 14:45 | Cardiology Progress Note ---
Date of Encounter: 05/03/17 Time of Encounter: 14:43 Assessment and Plan (1) Cardiomyopathy Current Visit: Yes Status: Acute Cardiomyopathy in setting of severe illness. Mild enzyme elevation likely related to DEAN, etc. Presentation not c/w ACS. LVEF estimated to be 35%. Repeat limited study pending. If EF remains significantly reduced, consider ischemic evaluation early this week. Continue aspirin, BB therapy. LFTs elevated - hold statin. Further recommendations to follow. Qualifiers: Cardiomyopathy type: unspecified Qualified Code(s): I42.9 - Cardiomyopathy , unspecified Discussion w patient/family: The assessment and plan as outlined above was discussed with the patient and/or family members who expressed understanding and agreement. All questions were answered. Thank you for involving us in the care of your patient. Please call with any questions. Subjective Principal diagnosis: Septic shock Interval history: Patient seen and examined earlier today. Overall unhealthy at baseline, but condition has improved/stablized. Repeat limited TTE pending. Objective Vital Signs, Last 4 Hours Temp Pulse Resp BP Pulse Ox 05/03/17 11:56 98.4 F 63 16 153/96 96 General: Other (Resting during my evaluation. ) HEENT: Atraumatic, Normocephaly, Mucus Membranes Moist Neck: No JVD, Normal carotid pulses Cardiac: Reg Rate and Rhythm, Normal S1 and S2, Other (Distant. ) Lungs: Normal Breath Sounds, Other (Shallow. ) Neuro: Alert and responsive, Other (Resting. ) Abdomen: Soft, Non-Tender, Other (Obese) Skin: No rashes noted on visualized skin Musculoskeletal: No Chest Wall Tenderness Extremities: No Clubbing, No Cyanosis Results 05/03/17 08:33 05/03/17 08:33 Lab Results 05/03/17 05/03/17 05/03/17 07:05 07:05 08:33 WBC 14.2 H Hgb 8.4 L Hct 26.4 L Plt Count 92 L INR 1.0 APTT 32.6 Sodium Potassium Chloride Carbon Dioxide BUN Creatinine Glucose Calcium Magnesium 2.4 Total Bilirubin AST ALT Alkaline Phosphatase 05/03/17 05/03/17 08:33 08:33 WBC Hgb Hct Plt Count INR APTT Sodium 139 Potassium 3.9 Chloride 104 Carbon Dioxide 26 BUN 32 H D Creatinine 2.69 H D Glucose 112 H Calcium 8.7 Magnesium Total Bilirubin 1.1 AST 36 H ALT 63 H Alkaline Phosphatase 195 H - Imaging and Cardiology Echo: report reviewed - VTE Documentation of Mechanical Device: Intermittent pneumatic compression device Consult Discharge Plan - Plan Referrals: NONE,PCP [Primary Care Provider] -
[2017-05-03] MEDS: traZODone 50 MG TABLET PO SCH (22:00)
[2017-05-04] MEDS: *HR* HYDROcodone/Acet 7.5/325 mg TABLET PO SCH ×3 (04:52→13:30)
[2017-05-04 04:54] LABS: Basophils % 0.3 %; Hematocrit 26.6 % (35.3-44.9); Hemoglobin 8.4 g/dL (11.5-15.4); Immature Granulocytes % 1.9 % (0-4); Lymphocytes # 0.8 K/mcL (0.6-4.6); Lymphocytes % 6.4 %; Mean Corpuscular HGB Conc 31.6 g/dL (31.6-35.5); Mean Corpuscular Hemoglobin 26.9 pg (28.0-33.3); Mean Corpuscular Volume 85.3 fL (83.0-100.0); Monocytes # 0.8 K/mcL (0.0-1.3); Monocytes % 6.6 %; Neutrophils # 10.7 K/mcL (1.6-8.9); Platelet Count 104 K/mcL (140-400); Red Blood Count 3.12 M/mcL (3.82-4.97); Red Cell Distribution Width 17.4 % (11.5-14.5); Segmented Neutrophils % 84.8 %
[2017-05-04 05:01] LABS: Prothrombin Time 10.5 Seconds (9.4-12.1)
[2017-05-04 05:04] LABS: Activated Partial Thrombo Time 30.4 Seconds (26.0-36.0)
[2017-05-04 05:19] LABS: Albumin 3.7 g/dL (3.5-5.0); Albumin/Globulin Ratio 1.7 (1.1-2.2); Bilirubin,Direct 0.9 mg/dL (0.0-0.5); Bilirubin,Indirect 0.4 mg/dL (0.0-1.2); Bilirubin,Total 1.3 mg/dL (0.2-1.2); Calcium 9.1 mg/dL (8.6-10.8); Globulin 2.2 g/dL (2.4-3.5); Magnesium 2.6 mg/dL (1.6-2.6); Phosphorous 4.2 mg/dL (2.3-4.7); Potassium 4.1 mEq/L (3.5-4.5); Total Protein 5.9 g/dL (6.0-8.3)
[2017-05-04 05:57] LABS: Ionized Calcium 1.16 mmol/L (1.15-1.35)
[2017-05-04] MEDS: *HR* Heparin 5,000 UNIT/ML VIAL SQ SCH ×3 (06:46→22:12)
[2017-05-04] MEDS: Pantoprazole 40 MG VIAL IVP SCH (06:47)
[2017-05-04] MEDS: Metoprolol XL (24 HR) Succ 25 MG TAB.ER.24H PO SCH (08:55)
[2017-05-04] MEDS: Aspirin Enteric Coated 81 MG Tablet PO SCH (08:56)
[2017-05-04] MEDS ORDERED: Hydrocortisone Sodium Succ 100 MG/2 ML VIAL IVP SCH ×4 (09:00)
[2017-05-04] MEDS: Albumin 25% 25gram/100mL 25 GM/100 ML IV.SOLN IVPB SCH ×2 (09:03→15:03)
[2017-05-04] MEDS: Piperacillin/Tazobactam 3.375 GM in D5% in Water (Mini-Bag+) 100 ML IVPB SCH ×2 (09:08→16:40)
[2017-05-04] MEDS ORDERED: 0.9 % Sodium Chloride 250 ML IVC PRN (10:01)
[2017-05-04] MEDS ORDERED: 0.9 % Sodium Chloride 1,000 ML PRIME SCH (10:15)
--- NOTE | 2017-05-04 10:44 | Nephrology Progress Note ---
Date of Encounter: 05/04/17 Time of Encounter: 10:43 - Assessment and Plan (1) DEAN (acute kidney injury) Current Visit: Yes Status: Acute iHD as needed. Avoid nephrotoxins. dialysis today. Monitor for renal recovery. Baseline renal function >60. (2) Acute respiratory failure with hypoxia and hypercarbia Current Visit: Yes Status: Acute Patient tolerating nasal cannula. (3) Atrial fibrillation with RVR Current Visit: Yes Status: Acute Rate is controlled. (4) Sepsis Current Visit: No Status: Acute Etiology unclear. Possibly UTI. Per primary team. Qualifiers: Sepsis type: sepsis due to unspecified organism Qualified Code(s): A41.9 - Sepsis, unspecified organism (5) Hypertension Current Visit: No Status: Chronic As sepsis resolves monitor for the need for antihypertensive medication. Qualifiers: Hypertension type: essential hypertension Qualified Code(s): I10 - Essential (primary) hypertension Subjective Principal diagnosis: Septic shock Interval history: Patient seen. Patient off CVVHD. She has no new complaints. Objective - Vital Signs Vital signs: Vital Signs Temp Pulse Resp BP Pulse Ox 05/04/17 07:17 97.6 F 69 18 153/82 98 05/04/17 04:09 61 16 136/86 95 05/03/17 23:45 97.9 F 57 16 124/78 97 05/03/17 19:27 97.6 F 78 18 145/88 94 05/03/17 15:55 97.6 F 69 15 156/91 98 05/03/17 11:56 98.4 F 63 16 153/96 96 Intake and Output 05/03/17 05/04/17 05/04/17 23:59 07:59 15:59 Intake Total 200 / 200 200 / 200 Output Total 0 / 0 0 / 0 Balance 200 / 200 200 / 200 Intake: IV Fluids 200 / 200 200 / 200 Flexbumin 25 gm In 100 ml 100 / 100 100 / 100 @ 60 mls/hr IVPB Q8HR JENNA Rx#:[id number] Zosyn 3.375 GM In 100 / 100 100 / 100 Dextrose 5% (Minibag+) 100 ML 100 ML @ 25 mls/hr IVPB Q8H JENNA Rx#: [id number] Oral 0 / 0 Output: Urine 0 / 0 0 / 0 Urethral (Haji) 0 / 0 Catheter 0 / 0 Other: Weight 151.228 kg - General Appearance General appearance: Present: well-developed, well-nourished, obese EENT: Present: ATNC Neck: Present: supple Gastrointestinal: Present: no tenderness, obese Integumentary: Present: warm and dry Psychiatric: Present: mood/affect appropriate - Lab 05/04/17 04:30 05/04/17 04:30 Most recent lab results ABG pH 7.37 pH Units (7.32-7.45) 04/30/17 08:31 ABG pCO2 42 mmHg (35-45) 04/30/17 08:31 ABG pO2 65 mmHg (85-104) L 04/30/17 08:31 ABG HCO3 24.3 mEQ/L (21-27) 04/30/17 08:31 ABG O2 Saturation 92 % (95-98) L 04/30/17 08:31 Calcium 9.1 mg/dL (8.6-10.8) 05/04/17 04:30 Phosphorus 4.2 mg/dL (2.3-4.7) 05/04/17 04:30 Magnesium 2.6 mg/dL (1.6-2.6) 05/04/17 04:30 Urine Creatinine 57 mg/dL 04/29/17 23:05 Urine Sodium 88.0 mEq/L 04/29/17 23:05 - VTE Documentation of Mechanical Device: Intermittent pneumatic compression device Consult Discharge Plan - Plan Referrals: NONE,PCP [Primary Care Provider] -
--- NOTE | 2017-05-04 10:44 | Event Note ---
Date of Encounter: 05/04/17 Time of Encounter: 09:00 Patient awake and alert, daughter Es at bedside. C/o chronic knee pain, but no other complaints. She verbalized she is thankful to be improving and out of ICU. Aware she may have dialysis today. Discussed briefly that she will need to d/w social work, plan after hospital. According to progress notes , she may require extended IV antibiotic therapy, and means of outpt dialysis. D/W transit worker Ronny Benitez and he will see and discuss options. Palliative will follow at a distance at this point.
[2017-05-04 13:04] LABS: Hepatitis B Surface Antibody 0.86 mIU/mL; Hepatitis B Surface Antigen Nonreactive (Nonreactive)
--- NOTE | 2017-05-04 14:57 | Internal Med Progress Note ---
Addendum entered and electronically signed by Susan Pagan MD 05/04/17 16:41: Nephro notified nursing, nephro planning for dialysis this evening. Original Note: <Susan Pagan - Last Filed: 05/04/17 16:25> Date of Encounter: 05/04/17 Time of Encounter: 11:55 - Assessment and plan (1) DEAN (acute kidney injury) Current Visit: Yes Status: Acute Assessment and plan: Patient on continuous renal replacement therapy in the intensive care unit. Nephrology is following and will continue to follow the patient's labs and urine output to determine if the patient is candidate for intermittent hemodialysis. No indications for dialysis today, per nephro. Appreciate recs. (2) CHF (congestive heart failure) Current Visit: Yes Status: Acute Assessment and plan: Stable. EF decreased on admission. She was seen by cardiology and they have recommended a repeat echocardiogram that the patient's critical illness of subsided. EF Findings technically challenging due to body habitus. Findings: Aorta * Normally sized aortic root. Left Ventricle * Definity echo contrast was used. * LVEF 45-50%. * Normal LV size. Cardio on consult, appreciate recs Qualifiers: Congestive heart failure type: unspecified congestive heart failure type Congestive heart failure chronicity: acute on chronic Qualified Code(s): I50.9 - Heart failure, unspecified (3) DVT prophylaxis Current Visit: Yes Status: Acute (4) Transaminitis Current Visit: Yes Status: Acute Assessment and plan: GI on consult and recommended monitoring LFTs. LFts trend improving Hepatitis workup negative. We will continue to trend LFTs (5) Decubitus ulcer Current Visit: No Status: Acute Assessment and plan: Pt refusing to be moved for view of decubitis ulcer, per nurse Attempt to move pt periodically, given pt cooperative Qualifiers: Pressure ulcer location: back, unspecified location Pressure ulcer stage: stage 2 Qualified Code(s): L89.102 - Pressure ulcer of unspecified part of back, stage 2 - Time Spent With Patient 25 - 35 minutes - Subjective Interval history: No acute events overnight. Pt accompanied by daughter who is primary rn urgent care. Daughter states pt slept well last night with addition of home medication. Pt complains she dislikes being moved due to back pain. - Constitutional Vitals: Temp Pulse Resp BP Pulse Ox 98.2 F 62 18 123/72 95 05/04/17 11:21 05/04/17 11:21 05/04/17 11:21 05/04/17 11:21 05/04/17 11:21 General appearance: Present: cooperative, A&O X 3, pleasant, no acute distress - Cardiovascular Cardiovascular exam: Present: RRR - GI/Abdominal GI/Abdominal exam: Present: normal bowel sounds. Absent: guarding, rebound, tenderness Additional comments: obese - Expanded Lower Extremities Exam Lower Leg exam: Present: swelling. Absent: tenderness (L leg: Redness, and hyperpigmentation involving the lower third of the leg. No tenderness on palpation.) Internal Medicine: Result - Labs CBC & Chem 7: 05/04/17 04:30 05/04/17 04:30 Labs: Short CBC 05/04/17 Range/Units 04:30 WBC 12.6 H (4.3-11.1) K/mcL Hgb 8.4 L (11.5-15.4) g/dL Hct 26.6 L (35.3-44.9) % Plt Count 104 L (140-400) K/mcL Neutrophils # 10.7 H (1.6-8.9) K/mcL BMP 05/04/17 04:30 Sodium 138 Potassium 4.1 Chloride 102 Carbon Dioxide 25 BUN 48 H D Creatinine 3.64 H Glucose 119 H Calcium 9.1 Liver Function 05/04/17 Range/Units 04:30 Total Bilirubin 1.3 H (0.2-1.2) mg/dL Direct Bilirubin 0.9 H (0.0-0.5) mg/dL AST 31 (5-34) Units/L ALT 51 (0-55) Units/L Alkaline Phosphatase 194 H (38-126) Units/L Albumin 3.7 (3.5-5.0) g/dL - ABG Interpretation ABG results: ABG ABG pH 7.37 pH Units (7.32-7.45) 04/30/17 08:31 ABG pCO2 42 mmHg (35-45) 04/30/17 08:31 ABG pO2 65 mmHg (85-104) L 04/30/17 08:31 ABG O2 Saturation 92 % (95-98) L 04/30/17 08:31 PT/INR, D-dimer PT 10.5 Seconds (9.4-12.1) 05/04/17 04:30 - VTE Documentation of Mechanical Device: Intermittent pneumatic compression device Consult Discharge Plan - Plan Referrals: NONE,PCP [Primary Care Provider] - <Gregory Rodrigez P - Last Filed: 05/04/17 18:25> Date of Encounter: 05/04/17 - Constitutional Vitals: Temp Pulse Resp BP Pulse Ox 98.3 F 69 20 143/85 96 05/04/17 16:19 05/04/17 16:19 05/04/17 16:19 05/04/17 16:19 05/04/17 16:19 Internal Medicine: Result - Labs CBC & Chem 7: 05/04/17 04:30 05/04/17 04:30 Labs: Short CBC 05/04/17 Range/Units 04:30 WBC 12.6 H (4.3-11.1) K/mcL Hgb 8.4 L (11.5-15.4) g/dL Hct 26.6 L (35.3-44.9) % Plt Count 104 L (140-400) K/mcL Neutrophils # 10.7 H (1.6-8.9) K/mcL BMP 05/04/17 04:30 Sodium 138 Potassium 4.1 Chloride 102 Carbon Dioxide 25 BUN 48 H D Creatinine 3.64 H Glucose 119 H Calcium 9.1 Liver Function 05/04/17 Range/Units 04:30 Total Bilirubin 1.3 H (0.2-1.2) mg/dL Direct Bilirubin 0.9 H (0.0-0.5) mg/dL AST 31 (5-34) Units/L ALT 51 (0-55) Units/L Alkaline Phosphatase 194 H (38-126) Units/L Albumin 3.7 (3.5-5.0) g/dL - ABG Interpretation ABG results: ABG ABG pH 7.37 pH Units (7.32-7.45) 04/30/17 08:31 ABG pCO2 42 mmHg (35-45) 04/30/17 08:31 ABG pO2 65 mmHg (85-104) L 04/30/17 08:31 ABG O2 Saturation 92 % (95-98) L 04/30/17 08:31 PT/INR, D-dimer PT 10.5 Seconds (9.4-12.1) 05/04/17 04:30 - Attending Attestation I examined this patient and my medical decision-making was reviewed with the Resident Physician. I agree with the documented findings, disposition and treatment plan as described except to the extent set forth below.
[2017-05-04] MEDS ORDERED: 0.9 % Sodium Chloride 1,000 ML ONE (16:05)
[2017-05-04] MEDS: *HR* OxyCODONE Immed Rel 5 MG TABLET PO PRN ×2 (16:58→22:12)
--- NOTE | 2017-05-04 17:20 | Electrocardiograph Report ---
[place] [id number] Test Date: 2017-05-02 Pat Name: Mitchel Wei Department: 112 Room: 2A Gender: F [employer]: MYRIAM : 1945 Requested By: Senait Hughes Order Number: [id number] Reading MD: Jeannette Lawson Measurements Intervals [place] Rate: 82 P: 28 TX: 200 QRS: -7 QRSD: 90 T: 43 QT: 346 QTc: 385 Interpretive Statements SINUS RHYTHM WITH OCCASIONAL SUPRAVENTRICULAR PREMATURE COMPLEXES NONSPECIFIC T-WAVE ABNORMALITY Electronically Signed On 05-04-2017 17:19:00 EDT by Jeannette Lawson
[2017-05-04] MEDS: traZODone 50 MG TABLET PO SCH (22:12)
[2017-05-05] MEDS ORDERED: Piperacillin/Tazobactam 3.375 GM VIAL IVPB ONE (00:27)
[2017-05-05] MEDS: Piperacillin/Tazobactam 3.375 GM in D5% in Water (Mini-Bag+) 100 ML IVPB SCH ×3 (00:33→17:24)
[2017-05-05] MEDS: *HR* OxyCODONE Immed Rel 5 MG TABLET PO PRN ×3 (05:44→20:05)
[2017-05-05] MEDS: *HR* Heparin 5,000 UNIT/ML VIAL SQ SCH ×3 (05:45→20:06)
[2017-05-05 07:20] LABS: Basophils # 0.1 K/mcL (0.0-0.2); Basophils % 0.4 %; Eosinophils # 0.3 K/mcL (0.0-0.6); Eosinophils % 1.8 %; Hematocrit 27.7 % (35.3-44.9); Hemoglobin 9.2 g/dL (11.5-15.4); Lymphocytes # 1.6 K/mcL (0.6-4.6); Lymphocytes % 10.5 %; Mean Corpuscular HGB Conc 33.2 g/dL (31.6-35.5); Mean Corpuscular Volume 84.5 fL (83.0-100.0); Mean Platelet Volume 11.3 fL (9.4-12.4); Monocytes # 1.3 K/mcL (0.0-1.3); Monocytes % 8.6 %; Neutrophils # 11.1 K/mcL (1.6-8.9); Platelet Count 157 K/mcL (140-400); Red Blood Count 3.28 M/mcL (3.82-4.97); Red Cell Distribution Width 17.3 % (11.5-14.5); Segmented Neutrophils % 74.7 %
[2017-05-05 07:32] LABS: Albumin 3.8 g/dL (3.5-5.0); Albumin/Globulin Ratio 1.7 (1.1-2.2); Bilirubin,Indirect 0.5 mg/dL (0.0-1.2); Bilirubin,Total 1.5 mg/dL (0.2-1.2); Calcium 9.1 mg/dL (8.6-10.8); Globulin 2.2 g/dL (2.4-3.5); Potassium 3.7 mEq/L (3.5-4.5)
[2017-05-05 07:50] LABS: Platelet Estimate Normal (Normal); Reactive Lymphocytes Present (Not Present)
[2017-05-05] MEDS: Metoprolol XL (24 HR) Succ 25 MG TAB.ER.24H PO SCH (08:33)
[2017-05-05] MEDS: Aspirin Enteric Coated 81 MG Tablet PO SCH (08:33)
--- NOTE | 2017-05-05 09:07 | Event Note ---
Date of Encounter: 05/05/17 Time of Encounter: 09:05 pt appears to be slowly improving, code status is full and pt has confirmed it. Her goal is to return home. Appear that she may require dialysis for a time however she is completely okay with this. Further discussion with regards to dialysis to take place with nephrology. It has nothing further to offer at this time. We will sign off please feel free to reconsult if it can help in any way.
--- NOTE | 2017-05-05 09:34 | Nephrology Progress Note ---
Date of Encounter: 05/05/17 Time of Encounter: 09:31 - Assessment and Plan (1) DEAN (acute kidney injury) Current Visit: Yes Status: Acute Plan for HD today Continues with no UOP Anticipate needing hemodialysis after discharge-patient requests [facility] Avoid nephrotoxins if possible Baseline renal function >60 (2) Atrial fibrillation with RVR Current Visit: Yes Status: Acute Rate is controlled (3) Sepsis Current Visit: No Status: Acute per primary team Qualifiers: Sepsis type: sepsis due to unspecified organism Qualified Code(s): A41.9 - Sepsis, unspecified organism Subjective Principal diagnosis: Septic shock Interval history: Patient seen and examined. Family at bedside. Objective - Vital Signs Vital signs: Vital Signs Temp Pulse Resp BP Pulse Ox 05/05/17 08:49 97.6 F 73 17 135/67 97 05/05/17 08:04 97 05/05/17 04:18 98.2 F 64 16 113/70 97 05/05/17 00:13 98.3 F 64 18 129/78 98 05/04/17 20:36 97.3 F L 20 144/77 05/04/17 20:20 138/64 05/04/17 20:05 141/80 05/04/17 19:50 139/79 05/04/17 19:35 121/51 05/04/17 19:20 116/53 05/04/17 19:05 126/68 05/04/17 18:50 117/62 05/04/17 18:35 106/49 05/04/17 18:20 105/56 05/04/17 18:05 113/66 05/04/17 17:50 150/80 05/04/17 17:35 152/83 05/04/17 17:20 97.8 F 18 142/80 05/04/17 16:19 98.3 F 69 20 143/85 96 05/04/17 11:21 98.2 F 62 18 123/72 95 Intake and Output 05/04/17 05/05/17 05/05/17 23:59 07:59 15:59 Intake Total 600 / 600 100 / 100 Output Total 3600 / 3600 10 / 10 0 / 0 Balance -3000 / -3000 90 / 90 0 / 0 Intake: IV Fluids 100 / 100 Zosyn 3.375 GM In 100 / 100 Dextrose 5% (Minibag+) 100 ML 100 ML @ 25 mls/hr IVPB Q8H [facility] Rx#: [id number] Oral 0 / 0 Intake, Rinseback and 600 / 600 Flushes Output: Urine 0 / 0 5 / 5 0 / 0 Urethral (Haji) 5 / 5 0 / 0 Total Dialysis (HD) 3600 / 3600 Output Catheter 5 / 5 Other: Weight 151 kg Hemodialysis Net Fluid 3000 Removed (mL) Patient Weight 05/05/17 23:59 Weight 151 kg - General Appearance General appearance: Present: obese EENT: Present: ATNC, mucous membranes moist, hearing intact, vision intact Neck: Present: supple Respiratory: Present: clear (decreased) Cardiology: Present: edema, normal S1, normal S2 Dialysis Vascular Access: Venous Catheter Gastrointestinal: Present: no tenderness, no guarding, obese Integumentary: Present: warm and dry Neurologic: Present: alert and oriented x3 Psychiatric: Present: mood/affect appropriate, cooperative - Lab 05/05/17 07:04 05/05/17 07:04 Most recent lab results ABG pH 7.37 pH Units (7.32-7.45) 04/30/17 08:31 ABG pCO2 42 mmHg (35-45) 04/30/17 08:31 ABG pO2 65 mmHg (85-104) L 04/30/17 08:31 ABG HCO3 24.3 mEQ/L (21-27) 04/30/17 08:31 ABG O2 Saturation 92 % (95-98) L 04/30/17 08:31 Calcium 9.1 mg/dL (8.6-10.8) 05/05/17 07:04 Phosphorus 4.2 mg/dL (2.3-4.7) 05/04/17 04:30 Magnesium 2.6 mg/dL (1.6-2.6) 05/04/17 04:30 Urine Creatinine 57 mg/dL 04/29/17 23:05 Urine Sodium 88.0 mEq/L 04/29/17 23:05 - VTE Documentation of Mechanical Device: Intermittent pneumatic compression device Consult Discharge Plan - Plan Referrals: NONE,PCP [Primary Care Provider] -
--- NOTE | 2017-05-05 13:25 | Internal Med Progress Note ---
<Susan Pagan - Last Filed: 05/05/17 18:03> Date of Encounter: 05/05/17 Time of Encounter: 09:25 - Assessment and plan (1) DEAN (acute kidney injury) Current Visit: Yes Status: Acute Assessment and plan: Plan for HD today, per current nephro note. Tolerated HD yesterday. GFR and Cr levels improving Minimal UOP. RN reports issues with rose placement 2/2 to patient's body habitus, thus plan for bladder scan CBC & BMP for tomorrow AM Nephro on consult, appreciate recs Per nephro, anticipate needing hemodialysis after discharge-patient requests [facility] Avoid nephrotoxins if possible (2) CHF (congestive heart failure) Current Visit: Yes Status: Acute Assessment and plan: Stable. Symptoms not indicative of fluid overload. EF was decreased on admission. SpO2 at 96% on 2 L nasal cannula Cardio on consult and recommend ECHO, appreciate recs EF Findings technically challenging due to body habitus. Findings:* LVEF 45-50%.* Normal LV size. Qualifiers: Congestive heart failure type: unspecified congestive heart failure type Congestive heart failure chronicity: acute on chronic Qualified Code(s): I50.9 - Heart failure, unspecified (3) Atrial fibrillation with RVR Current Visit: Yes Status: Acute Assessment and plan: Rate controlled. Cardio on consult. (4) DVT prophylaxis Current Visit: Yes Status: Acute Assessment and plan: Recommend intermitttent compression devices On exam today, pt appeared more ameanble to movement to PCP Educated importance of ICDs to patient and family Discussed with RN, will re-attempt to apply following patient's earlier refusal (5) Decubitus ulcer Current Visit: No Status: Acute Assessment and plan: Per family, pt was cooperative to visualization of decubitis ulcer to nurse During PE, limited physical exam 2/2 to patient's body habitus. Lateral sides of back clear of echymossis, redness or wounds. Qualifiers: Pressure ulcer location: back, unspecified location Pressure ulcer stage: unstageable Qualified Code(s): L89.100 - Pressure ulcer of unspecified part of back, unstageable (6) Transaminitis Current Visit: Yes Status: Acute Assessment and plan: Transaminitis, improving. Likely 2/2 to hypotension in setting of septic shock GI on consult and recommended monitoring LFTs. LFts generally improving over course of hospitalization 05/04 AST: 31. 05/05 AST: 33 05/04 ALT : 05/05 AST 36 Hepatitis workup negative. We will continue to trend LFTs - Subjective Interval history: No acute events overnight. Report abdominal pain has improved from yesterday. Pt accompanied by son. Tolerated dialysis yesterday. - Constitutional Vitals: Temp Pulse Resp BP Pulse Ox 97.9 F 74 17 108/72 96 05/05/17 11:45 05/05/17 11:45 05/05/17 11:45 05/05/17 11:45 05/05/17 11:45 General appearance: Present: cooperative, A&O X 3, pleasant, no acute distress - Cardiovascular Cardiovascular exam: Present: +S1, +S2. Absent: diastolic murmur, systolic murmur - Expanded Lower Extremities Exam Lower Leg exam: Present: swelling (L leg: Redness, and hyperpigmentation involving the lower third of the leg. R: bluish-red discoloration on medial side of leg. No tenderness on palpation). Absent: tenderness Ankle exam: Present: swelling - Neurological Exam Neurological exam: Present: alert, reflexes normal. Absent: facial droop Internal Medicine: Result - Labs CBC & Chem 7: 05/05/17 07:04 05/05/17 07:04 Labs: Short CBC 05/05/17 Range/Units 07:04 WBC 14.8 H (4.3-11.1) K/mcL Hgb 9.2 L (11.5-15.4) g/dL Hct 27.7 L (35.3-44.9) % Plt Count 157 D (140-400) K/mcL Neutrophils # 11.1 H (1.6-8.9) K/mcL BMP 05/05/17 07:04 Sodium 139 Potassium 3.7 Chloride 101 Carbon Dioxide 28 BUN 36 H D Creatinine 3.08 H Glucose 81 Calcium 9.1 Liver Function 05/05/17 Range/Units 07:04 Total Bilirubin 1.5 H (0.2-1.2) mg/dL Direct Bilirubin 1.0 H (0.0-0.5) mg/dL AST 36 H (5-34) Units/L ALT 42 (0-55) Units/L Alkaline Phosphatase 208 H (38-126) Units/L Albumin 3.8 (3.5-5.0) g/dL - ABG Interpretation ABG results: ABG ABG pH 7.37 pH Units (7.32-7.45) 04/30/17 08:31 ABG pCO2 42 mmHg (35-45) 04/30/17 08:31 ABG pO2 65 mmHg (85-104) L 04/30/17 08:31 ABG O2 Saturation 92 % (95-98) L 04/30/17 08:31 PT/INR, D-dimer PT 10.5 Seconds (9.4-12.1) 05/04/17 04:30 - VTE Documentation of Mechanical Device: Intermittent pneumatic compression device Consult Discharge Plan - Plan Referrals: Barron Carbajal, [Non-Partnered Physician] - <Bg Tillman - Last Filed: 05/05/17 19:21> Date of Encounter: 05/05/17 - Assessment and plan (1) ATN (acute tubular necrosis) Current Visit: Yes Status: Suspected Assessment and plan: Hold ASA pending catheter placement. (2) Hypertension Current Visit: No Status: Chronic Qualifiers: Hypertension type: essential hypertension Qualified Code(s): I10 - Essential (primary) hypertension (3) CHF (congestive heart failure) Current Visit: Yes Status: Acute Qualifiers: Congestive heart failure type: systolic Congestive heart failure chronicity : acute on chronic Qualified Code(s): I50.23 - Acute on chronic systolic ( congestive) heart failure (4) Atrial fibrillation Current Visit: Yes Status: Acute Qualifiers: Atrial fibrillation type: persistent Qualified Code(s): I48.1 - Persistent atrial fibrillation (5) UTI (urinary tract infection) Current Visit: No Status: Acute Qualifiers: Urinary tract infection type: acute cystitis Hematuria presence: with hematuria Qualified Code(s): N30.01 - Acute cystitis with hematuria (6) Acute respiratory failure with hypoxia and hypercarbia Current Visit: Yes Status: Resolved (7) Septic shock Current Visit: Yes Status: Resolved - Constitutional Vitals: Temp Pulse Resp BP Pulse Ox 98.0 F 73 16 122/69 96 05/05/17 16:43 05/05/17 16:43 05/05/17 16:43 05/05/17 16:43 05/05/17 16:43 Internal Medicine: Result - Labs CBC & Chem 7: 05/05/17 07:04 05/05/17 07:04 Labs: Short CBC 05/05/17 Range/Units 07:04 WBC 14.8 H (4.3-11.1) K/mcL Hgb 9.2 L (11.5-15.4) g/dL Hct 27.7 L (35.3-44.9) % Plt Count 157 D (140-400) K/mcL Neutrophils # 11.1 H (1.6-8.9) K/mcL BMP 05/05/17 07:04 Sodium 139 Potassium 3.7 Chloride 101 Carbon Dioxide 28 BUN 36 H D Creatinine 3.08 H Glucose 81 Calcium 9.1 Liver Function 05/05/17 Range/Units 07:04 Total Bilirubin 1.5 H (0.2-1.2) mg/dL Direct Bilirubin 1.0 H (0.0-0.5) mg/dL AST 36 H (5-34) Units/L ALT 42 (0-55) Units/L Alkaline Phosphatase 208 H (38-126) Units/L Albumin 3.8 (3.5-5.0) g/dL - ABG Interpretation ABG results: ABG ABG pH 7.37 pH Units (7.32-7.45) 04/30/17 08:31 ABG pCO2 42 mmHg (35-45) 04/30/17 08:31 ABG pO2 65 mmHg (85-104) L 04/30/17 08:31 ABG O2 Saturation 92 % (95-98) L 04/30/17 08:31 PT/INR, D-dimer PT 10.5 Seconds (9.4-12.1) 05/04/17 04:30 - Attending Attestation I examined this patient and my medical decision-making was reviewed with the Resident Physician on 05/05/17. I agree with the documented findings, disposition and treatment plan as described except to the extent set forth below. Ms. Wei is currently admitted for sepsis with DEAN. She remains moderate to high risk due to potential for worsening clinical status and new dialysis. Ms. Wei is feeling weak. No CP or SOB. Not moving much. Tolerating dialysis - not making much urine. No fever or chills. Exam Alert. Comfortable Mucus membranes dry Heart reg No wheeze I/P 1. DEAN due to ATN 2. Sepsis - complete abx Further diagnoses and plan as above.
[2017-05-05] MEDS: traZODone 50 MG TABLET PO SCH (20:05)
[2017-05-06 03:35] LABS: Eosinophils # 0.7 K/mcL (0.0-0.6); Hematocrit 26.6 % (35.3-44.9); Hemoglobin 8.8 g/dL (11.5-15.4); Mean Corpuscular HGB Conc 33.1 g/dL (31.6-35.5); Mean Corpuscular Hemoglobin 28.1 pg (28.0-33.3); Mean Platelet Volume 10.9 fL (9.4-12.4); Platelet Count 185 K/mcL (140-400); Red Blood Count 3.13 M/mcL (3.82-4.97); Red Cell Distribution Width 17.6 % (11.5-14.5)
[2017-05-06] MEDS: *HR* OxyCODONE Immed Rel 5 MG TABLET PO PRN ×3 (03:39→18:31)
[2017-05-06 03:46] LABS: Albumin 3.1 g/dL (3.5-5.0); Albumin/Globulin Ratio 1.3 (1.1-2.2); Bilirubin,Indirect 0.6 mg/dL (0.0-1.2); Bilirubin,Total 1.6 mg/dL (0.2-1.2); Calcium 8.9 mg/dL (8.6-10.8); Globulin 2.3 g/dL (2.4-3.5); Potassium 3.8 mEq/L (3.5-4.5); Total Protein 5.4 g/dL (6.0-8.3)
[2017-05-06 04:08] LABS: Lymphocytes # 1.7 K/mcL (0.6-4.6); Monocytes # 0.5 K/mcL (0.0-1.3); Neutrophils # 9.4 K/mcL (1.6-8.9)
[2017-05-06 04:09] LABS: Large Platelets Present (Not Present); Platelet Estimate Normal (Normal); Reactive Lymphocytes Present (Not Present)
[2017-05-06] MEDS: Piperacillin/Tazobactam 3.375 GM in D5% in Water (Mini-Bag+) 100 ML IVPB SCH ×2 (05:26→18:03)
[2017-05-06] MEDS: *HR* Heparin 5,000 UNIT/ML VIAL SQ SCH ×3 (05:33→20:05)
[2017-05-06] MEDS ORDERED: 0.9 % Sodium Chloride 250 ML IVC PRN (08:17)
[2017-05-06] MEDS ORDERED: *HR* Heparin 10,000 UNIT/10 ML VIAL IV PRN (08:17)
[2017-05-06] MEDS ORDERED: 0.9 % Sodium Chloride 2,000 ML ONE (11:55)
[2017-05-06] MEDS ORDERED: Heparin 1,000 UNITS/500 mL NS 500 ML ONE (12:42)
[2017-05-06] MEDS ORDERED: *HR* Heparin 5,000 UNIT/ML VIAL ONE (13:08)
[2017-05-06] MEDS ORDERED: Vancomycin 500 MG in D5% in Water (Mini-Bag+) 100 ML IVPB ONE (13:24)
--- NOTE | 2017-05-06 14:01 | Cardiology Progress Note ---
Date of Encounter: 05/06/17 Time of Encounter: 13:30 Assessment and Plan (1) Cardiomyopathy Current Visit: Yes Status: Acute Per cardiology: -Cardiomyopathy in setting of severe illness. -Mild enzyme elevation likely related to DEAN, etc. -Presentation not c/w ACS. -LVEF estimated to be 35%. -Repeat limited study with LVEF 40-45% -Recommend LHC prior to discharge. -Continue BB therapy. -LFTs elevated - hold statin. -ASA being held due to thrombocytopenia, improved today. -I had a lengthy discussion with patient and family regarding LHC. At this time , patient states she would like to speak with all of her children and then make a decision regarding LHC. -I spoke with who states we can coordinate LHC with dialysis. states to let him know if and when LHC would be performed. -Can consider addition of asa. -Will check back with patient in am regarding LHC. Qualifiers: Cardiomyopathy type: unspecified Qualified Code(s): I42.9 - Cardiomyopathy , unspecified (2) Paroxysmal a-fib Current Visit: Yes Status: Acute Per cardiology: -PAF noted per ECG and telemetry. -On beta glory. -Average HR previous 12 hours noted to be 68, sinus rhythm. -[id number] score 4 (age, gender, HTN, CHF history). Recommend intermediate designer anticoagulation with coumadin. -Recommend intermediate designer anticoagultaion with coumadin. Can be started pending decision regarding LHC. -Will continue to monitor. Discussion w patient/family: The assessment and plan as outlined above was discussed with the patient and/or family members who expressed understanding and agreement. All questions were answered. Thank you for involving us in the care of your patient. Please call with any questions. Discussed and reviewed with . Subjective Principal diagnosis: Septic shock Interval history: Patient states she feels tired today. Denies chest pain or shortness of breath. Objective Vital Signs, Last 4 Hours Temp Resp BP 05/06/17 12:30 97.7 F 18 102/77 05/06/17 12:10 110/56 05/06/17 11:55 117/38 05/06/17 11:40 102/49 05/06/17 11:25 103/50 05/06/17 11:10 104/50 05/06/17 10:55 100/54 05/06/17 10:40 117/53 05/06/17 10:25 103/51 05/06/17 10:10 107/48 General: Conversant, No Apparent Distress HEENT: Atraumatic, Normocephaly, Mucus Membranes Moist Neck: No JVD, Normal carotid pulses Cardiac: Reg Rate and Rhythm, Normal S1 and S2, No Murmur Lungs: Other (Lung sounds diminished throughout. ) Neuro: Alert and responsive, No focal deficits noted Abdomen: Soft, Non-Tender Skin: No rashes noted on visualized skin Musculoskeletal: No Chest Wall Tenderness Extremities: No Clubbing, No Cyanosis, Normal Pulses, Other (Moderate pedal edema noted. ) Results 05/06/17 03:20 05/06/17 03:20 Lab Results Impressions Guidance Needle Placement Ultrasound 05/06/17 00:00 IMPRESSION: Successful ultrasound and fluoroscopy guided tunneled catheter placement . D/ / Vicente Phelps MD / Vicente Phelps MD Interpreting Provider: Vicente Phelps MD Insertion Tunneled Catheter 05/06/17 09:07 IMPRESSION: Successful ultrasound and fluoroscopy guided tunneled catheter placement . D/ / Vicente Phelps MD / Vicente Phelps MD Interpreting Provider: Vicente Phelps MD Active Medications Acetaminophen (Tylenol) 650 mg PO Q6HR PRN PRN Reason: Fever Stop: 11/01/17 17:32 Last Admin: 05/02/17 18:05 Dose: 650 mg Citalopram Hydrobromide (Celexa) 20 mg PO DAILY JENNA Stop: 11/02/17 21:31 Last Admin: 05/06/17 08:48 Dose: 20 mg Dextrose/Water (Dextrose 50% (Syg)) 25 ml IVP AD PRN PRN Reason: Hypoglycemia Stop: 10/29/17 19:52 Fluticasone Propionate (Flonase) 50 mcg NS DAILY PRN; Protocol PRN Reason: Allergy Symptoms Stop: 10/29/17 07:02 Glucagon (Glucagen) 1 mg IM ONCE PRN PRN Reason: Hypoglycemia Stop: 10/29/17 19:52 Glucose (Gluctose) 15 gm PO ONCE PRN PRN Reason: Hypoglycemia Stop: 10/29/17 19:52 Glucose (Gluctose) 30 gm PO ONCE PRN PRN Reason: Hypoglycemia Stop: 10/29/17 19:52 Heparin Sodium (Porcine) (Heparin) 5,000 unit SQ Q8HCO JENNA Stop: 10/30/17 14:01 Last Admin: 05/06/17 05:33 Dose: 5,000 unit Heparin Sodium (Porcine) (Heparin) 0 unit IV ONCE PRN PRN Reason: Hemodialysis Catheter Packing Dextrose (Dextrose 5%) 1,000 mls @ 100 mls/hr IVC .Q10H PRN PRN Reason: HYPOGLYCEMIA Stop: 11/01/17 17:46 Sodium Chloride (0.9 % Sodium Chloride) 1,000 mls @ 0 mls/hr PRIME .Q0M JENNA PRN Reason: As Directed Stop: 11/03/17 10:16 Piperacillin Sod/Tazobactam (Sod 3.375 gm/ Dextrose) 100 mls @ 25 mls/hr IVPB Q12HR [facility] Stop: 11/04/17 18:01 Last Infusion: 05/06/17 10:58 Dose: Infused Sodium Chloride (0.9 % Sodium Chloride) 250 mls @ 937.5 mls/hr IVC .Q16M PRN PRN Reason: Hypotension Stop: 11/05/17 08:18 Vancomycin HCl 500 mg/ (Dextrose) 100 mls @ 100 mls/hr IVPB ONCE ONE Stop: 05/06/17 14:23 Metoprolol Succinate (Toprol Xl) 12.5 mg PO DAILY [facility] Stop: 11/02/17 09:01 Last Admin: 05/05/17 08:33 Dose: 12.5 mg Omeprazole (Prilosec) 40 mg PO DAILY@0730 JENNA PRN Reason: Protocol Stop: 11/04/17 07:31 Last Admin: 05/06/17 08:48 Dose: 40 mg Ondansetron HCl (Zofran) 4 mg IVP Q6HR PRN; Protocol PRN Reason: Nausea Stop: 10/28/17 14:15 Last Admin: 05/05/17 20:09 Dose: 4 mg Oxycodone HCl (Roxicodone) 7.5 mg PO Q4HR PRN PRN Reason: Pain Stop: 11/03/17 14:28 Last Admin: 05/06/17 03:39 Dose: 7.5 mg Senna (Senna) 8.8 mg PO DAILY JENNA Stop: 10/31/17 11:01 Last Admin: 05/06/17 08:48 Dose: 8.8 mg Trazodone HCl (Trazodone) 100 mg PO HS JENNA Stop: 11/02/17 21:31 Last Admin: 05/05/17 20:05 Dose: 100 mg Vancomycin HCl (Vancocin) 0 each IVPB AD PRN PRN Reason: PULSE DOSE Stop: 11/01/17 19:01 Laboratory Tests 05/02/17 05/06/17 05/06/17 05:19 03:20 03:20 WBC 12.4 H Hgb 8.8 L Plt Count 65 L 185 Potassium 3.8 Creatinine 4.13 H AST 46 H ALT 39 - Imaging and Cardiology Chest Xray: report reviewed Echo: report reviewed - EKG Interpretation EKG results cardiology: personally reviewed (ECG 04/30/17 with atrial fibrillation RVR, HR 118.), other (Telemetry reviewed with average HR 68, sinus rhythm. PACS noted. Episodes of atrial fibrillation noted previously.) - VTE Documentation of Mechanical Device: Intermittent pneumatic compression device Consult Discharge Plan - Plan Referrals: Barron Carbajal DO [Non-Partnered Physician] - 05/26/17 1:30 pm (Please call the office upon discharge for a sooner appointments..)
[2017-05-06] MEDS ORDERED: Vancomycin 750 MG in D5% in Water 250 ML IVPB ONE (14:12)
[2017-05-06] MEDS: Metoprolol XL (24 HR) Succ 25 MG TAB.ER.24H PO SCH (14:14)
--- NOTE | 2017-05-06 16:48 | Internal Med Progress Note ---
<Susan Pagan - Last Filed: 05/06/17 16:57> Date of Encounter: 05/06/17 Time of Encounter: 09:30 (Approximate.) - Assessment and plan (1) DEAN (acute kidney injury) Current Visit: Yes Status: Acute Assessment and plan: Plan for HD today, per current nephro note. Tolerated HD yesterday. GFR and Cr levels improving Minimal UOP. RN reports issues with rose placement 2/2 to patient's body habitus, thus plan for bladder scan CBC & BMP for tomorrow AM Nephro on consult, appreciate recs Per nephro, anticipate needing hemodialysis after discharge-patient requests [facility] Avoid nephrotoxins if possible Monitoring UOP - Successful ultrasound and fluoroscopy guided tunneled catheter placement (2) CHF (congestive heart failure) Current Visit: Yes Status: Acute Assessment and plan: Stable. Symptoms not indicative of fluid overload. EF was decreased on admission. -LVEF estimated to be 35%. -Repeat limited study with LVEF 40-45% Cardio on consult, appreciate recs Per cardio, recommendation for LHC prior to discharge. Cardio will re-check tomorrow with pt in regard's to pt's decision on LHC. -Continue BB therapy. -LFTs elevated - hold statin. -ASA being held due to thrombocytopenia, improved today. Qualifiers: Congestive heart failure type: systolic Congestive heart failure chronicity : acute on chronic Qualified Code(s): I50.23 - Acute on chronic systolic ( congestive) heart failure (3) Atrial fibrillation with RVR Current Visit: Yes Status: Acute Assessment and plan: Rate controlled. Cardio on consul, appreciate recs -Average HR previous 12 hours noted to be 68, sinus rhythm. -[id number] score 4 (age, gender, HTN, CHF history). Recommend salvage determiner anticoagulation with coumadin. Decision to commence coumadin, pending LHC (4) DVT prophylaxis Current Visit: Yes Status: Acute Assessment and plan: Wells' Score for risk of DVT - minimum 4 ( Bedridden recently >3 days , Collateral (nonvaricose) superficial veins present, Entire leg swollen, immobilization of the lower extremity 2/2 to pt's debility) Pt on Heparin SubQ and plan to continue Per nurse communication, pt refuses ICDs (5) Decubitus ulcer Current Visit: No Status: Acute Assessment and plan: Per nurse note, pt refuses to be moved for view of ulcer Lateral sides of back clear of echymossis, redness or wounds. Qualifiers: Pressure ulcer location: back, unspecified location Pressure ulcer stage: unstageable Qualified Code(s): L89.100 - Pressure ulcer of unspecified part of back, unstageable (6) Transaminitis Current Visit: Yes Status: Acute Assessment and plan: Transaminitis, Likely 2/2 to hypotension in setting of septic shock GI on consult and recommended monitoring LFTs. LFts levels increasing Hepatitis workup negative. We will continue to trend LFTs Holding statins (7) Venous stasis of lower extremity Current Visit: Yes Status: Acute Assessment and plan: Redness, and hyperpigmentation involving the lower third of the leg. R: bluish- red discoloration on medial side of leg. Leg elevation, exercise, and compression therapy for oxygen transport to the skin and subcutaneous tissues and decrease of edema For exercise PT/OT on consult Compression wrapping order for this evening (8) Edema Current Visit: No Status: Chronic Qualifiers: Edema type: unspecified Qualified Code(s): R60.9 - Edema, unspecified - Subjective Interval history: Morning: No acute events overnight. Visited pt's room in morning, but patient was receiving dialysis at the time Afternoon: Pt was lying in bed. Tolerated dialysis this morning. States "it feels good to relax" . Report that she it feels like "abdomen in pulling' but no pain. Denies SOB. Pt accompanied by daughter. Rose placed and draining. - Constitutional Vitals: Temp Pulse Resp BP Pulse Ox 98.0 F 83 16 108/70 96 05/06/17 16:26 05/06/17 16:26 05/06/17 16:26 05/06/17 16:26 05/06/17 16:26 General appearance: Present: cooperative, pleasant, no acute distress - Respiratory Respiratory exam: Present: CTAB. Absent: chest wall tenderness, rales, rhonchi , wheezes - Cardiovascular Cardiovascular exam: Present: RRR, +S1, +S2. Absent: gallop, rubs - GI/Abdominal GI/Abdominal exam: Present: normal bowel sounds (echymottic lesion appear by sites of injection), soft, no peritoneal signs. Absent: distended, tenderness Additional comments: Discoloration on R and L lower leg - Expanded Lower Extremities Exam Lower Leg exam: Present: ecchymosis, swelling. Absent: full ROM Internal Medicine: Result - Labs CBC & Chem 7: 05/06/17 03:20 05/06/17 03:20 Labs: Short CBC 05/06/17 Range/Units 03:20 WBC 12.4 H (4.3-11.1) K/mcL Hgb 8.8 L (11.5-15.4) g/dL Hct 26.6 L (35.3-44.9) % Plt Count 185 (140-400) K/mcL Neutrophils # 9.4 H (1.6-8.9) K/mcL BMP 05/06/17 03:20 Sodium 138 Potassium 3.8 Chloride 101 Carbon Dioxide 28 BUN 47 H D Creatinine 4.13 H Glucose 84 Calcium 8.9 Liver Function 05/06/17 Range/Units 03:20 Total Bilirubin 1.6 H (0.2-1.2) mg/dL Direct Bilirubin 1.0 H (0.0-0.5) mg/dL AST 46 H (5-34) Units/L ALT 39 (0-55) Units/L Alkaline Phosphatase 186 H (38-126) Units/L Albumin 3.1 L (3.5-5.0) g/dL - ABG Interpretation ABG results: ABG ABG pH 7.37 pH Units (7.32-7.45) 04/30/17 08:31 ABG pCO2 42 mmHg (35-45) 04/30/17 08:31 ABG pO2 65 mmHg (85-104) L 04/30/17 08:31 ABG O2 Saturation 92 % (95-98) L 04/30/17 08:31 PT/INR, D-dimer PT 10.5 Seconds (9.4-12.1) 05/04/17 04:30 - Impressions Impressions Guidance Needle Placement Ultrasound 05/06/17 00:00 IMPRESSION: Successful ultrasound and fluoroscopy guided tunneled catheter placement . D/ / Vicente Phelps MD / Vicente Phelps MD Interpreting Provider: Vicente Phelps MD Insertion Tunneled Catheter 05/06/17 09:07 IMPRESSION: Successful ultrasound and fluoroscopy guided tunneled catheter placement . D/ / Vicente Phelps MD / Vicente Phelps MD Interpreting Provider: Vicente Phelps MD - VTE Documentation of Mechanical Device: Intermittent pneumatic compression device Consult Discharge Plan - Plan Referrals: Barron Carbajal, DO [Non-Partnered Physician] - 05/26/17 1:30 pm (Please call the office upon discharge for a sooner appointments..) <Bg Tillman - Last Filed: 05/06/17 18:01> Date of Encounter: 05/06/17 - Assessment and plan (1) ATN (acute tubular necrosis) Current Visit: Yes Status: Suspected (2) Hypertension Current Visit: No Status: Chronic Qualifiers: Hypertension type: essential hypertension Qualified Code(s): I10 - Essential (primary) hypertension (3) CHF (congestive heart failure) Current Visit: Yes Status: Acute Qualifiers: Congestive heart failure type: systolic Congestive heart failure chronicity : acute on chronic Qualified Code(s): I50.23 - Acute on chronic systolic ( congestive) heart failure (4) Atrial fibrillation Current Visit: Yes Status: Acute Qualifiers: Atrial fibrillation type: paroxysmal Qualified Code(s): I48.0 - Paroxysmal atrial fibrillation (5) UTI (urinary tract infection) Current Visit: No Status: Acute Qualifiers: Urinary tract infection type: acute cystitis Hematuria presence: with hematuria Qualified Code(s): N30.01 - Acute cystitis with hematuria (6) Acute respiratory failure with hypoxia and hypercarbia Current Visit: Yes Status: Resolved (7) Cardiomyopathy Current Visit: Yes Status: Acute Qualifiers: Cardiomyopathy type: other Qualified Code(s): I42.8 - Other cardiomyopathies (8) Venous stasis of lower extremity Current Visit: Yes Status: Acute (9) Decubitus ulcer Current Visit: No Status: Acute Qualifiers: Pressure ulcer location: back, unspecified location Pressure ulcer stage: unstageable Qualified Code(s): L89.100 - Pressure ulcer of unspecified part of back, unstageable (10) Septic shock Current Visit: Yes Status: Resolved - Constitutional Vitals: Temp Pulse Resp BP Pulse Ox 98.0 F 83 16 108/70 96 05/06/17 16:26 05/06/17 16:26 05/06/17 16:26 05/06/17 16:26 05/06/17 16:26 Internal Medicine: Result - Labs CBC & Chem 7: 05/06/17 03:20 05/06/17 03:20 Labs: Short CBC 05/06/17 Range/Units 03:20 WBC 12.4 H (4.3-11.1) K/mcL Hgb 8.8 L (11.5-15.4) g/dL Hct 26.6 L (35.3-44.9) % Plt Count 185 (140-400) K/mcL Neutrophils # 9.4 H (1.6-8.9) K/mcL BMP 05/06/17 03:20 Sodium 138 Potassium 3.8 Chloride 101 Carbon Dioxide 28 BUN 47 H D Creatinine 4.13 H Glucose 84 Calcium 8.9 Liver Function 05/06/17 Range/Units 03:20 Total Bilirubin 1.6 H (0.2-1.2) mg/dL Direct Bilirubin 1.0 H (0.0-0.5) mg/dL AST 46 H (5-34) Units/L ALT 39 (0-55) Units/L Alkaline Phosphatase 186 H (38-126) Units/L Albumin 3.1 L (3.5-5.0) g/dL - ABG Interpretation ABG results: ABG ABG pH 7.37 pH Units (7.32-7.45) 04/30/17 08:31 ABG pCO2 42 mmHg (35-45) 04/30/17 08:31 ABG pO2 65 mmHg (85-104) L 04/30/17 08:31 ABG O2 Saturation 92 % (95-98) L 04/30/17 08:31 PT/INR, D-dimer PT 10.5 Seconds (9.4-12.1) 05/04/17 04:30 - Impressions Impressions Guidance Needle Placement Ultrasound 05/06/17 00:00 IMPRESSION: Successful ultrasound and fluoroscopy guided tunneled catheter placement . D/ / Vicente Phelps MD / Vicente Phelps MD Interpreting Provider: Vicente Phelps MD Insertion Tunneled Catheter 05/06/17 09:07 IMPRESSION: Successful ultrasound and fluoroscopy guided tunneled catheter placement . D/ / Vicente Phelps MD / Vicente Phelps MD Interpreting Provider: Vicente Phelps MD - Attending Attestation I examined this patient and my medical decision-making was reviewed with the Resident Physician on 05/06/17. I agree with the documented findings, disposition and treatment plan as described except to the extent set forth below. Ms. Wei is currently admitted for acute sepsis and renal failure. She remains moderate to high risk due to continued renal issues and need for IV abx. Ms. Wei feels very weak. She is a little better today - held her own cup. She is to have tunneled catheter today after dialysis. No CP or SOB. No fever or chills. Exam Alert. Comfortable. Mucus membranes dry Heart reg Lungs diminished Edema present I/P 1. Sepsis 2. ATN Further diagnoses and plan as above.
[2017-05-06] MEDS ORDERED: D5% in Water 250 ML ONE (16:50)
[2017-05-06] MEDS ORDERED: Vancomycin 1,500 MG in D5% in Water 250 ML IVPB ONE (18:00)
--- NOTE | 2017-05-06 22:40 | Nephrology Progress Note ---
Date of Encounter: 05/06/17 Time of Encounter: 14:55 - Assessment and Plan (1) DEAN (acute kidney injury) Current Visit: Yes Status: Acute iHD as needed. Avoid nephrotoxins. Monitor for renal recovery. Baseline renal function >60. Tunneled catheter placed. (2) Acute respiratory failure with hypoxia and hypercarbia Current Visit: Yes Status: Resolved Patient tolerating nasal cannula. (3) Atrial fibrillation with RVR Current Visit: Yes Status: Acute Rate is controlled. (4) Sepsis Current Visit: No Status: Inactive Etiology unclear. Possibly UTI. Per primary team. Resolved. Qualifiers: Sepsis type: sepsis due to unspecified organism Qualified Code(s): A41.9 - Sepsis, unspecified organism (5) Hypertension Current Visit: No Status: Chronic As sepsis resolves monitor for the need for antihypertensive medication. Qualifiers: Hypertension type: essential hypertension Qualified Code(s): I10 - Essential (primary) hypertension Subjective Principal diagnosis: Septic shock Interval history: Patient seen. Patient off CVVHD. She has no new complaints. Family is at her bedside. Objective - Vital Signs Vital signs: Vital Signs Temp Pulse Resp BP Pulse Ox 05/06/17 20:17 98.2 F 72 17 116/75 97 05/06/17 16:26 98.0 F 83 16 108/70 96 05/06/17 12:30 97.7 F 18 102/77 05/06/17 12:10 110/56 05/06/17 11:55 117/38 05/06/17 11:40 102/49 05/06/17 11:25 103/50 05/06/17 11:10 104/50 05/06/17 10:55 100/54 05/06/17 10:40 117/53 05/06/17 10:25 103/51 05/06/17 10:10 107/48 05/06/17 09:55 104/56 05/06/17 09:40 104/46 05/06/17 09:25 108/56 05/06/17 09:10 98.3 F 20 125/41 05/06/17 08:48 96 05/06/17 08:19 98.4 F 76 18 123/77 96 05/06/17 05:19 97.8 F 71 18 114/71 96 05/06/17 00:00 98.1 F 65 18 131/68 98 Intake and Output 05/06/17 05/06/17 05/06/17 07:59 15:59 23:59 Intake Total 700 / 700 Output Total 3600 / 3600 Balance -2900 / -2900 Intake: IV Fluids 100 / 100 Zosyn 3.375 GM In 100 / 100 Dextrose 5% (Minibag+) 100 ML 100 ML @ 25 mls/hr IVPB Q12HR [facility] Rx#: [id number] Oral 0 / 0 Intake, Rinseback and 600 / 600 Flushes Output: Urine 0 / 0 Total Dialysis (HD) 3600 / 3600 Output Other: Meal Lunch Percent of Meal Consumed 0% Weight 152.1 kg Hemodialysis Net Fluid 3000 Removed (mL) Patient Weight 05/06/17 23:59 Weight 152.1 kg - General Appearance General appearance: Present: well-developed, well-nourished EENT: Present: ATNC Neck: Present: supple Respiratory: Present: clear Cardiology: Present: edema, regular rate, regular rhythm Dialysis Vascular Access: Venous Catheter (right ij) Gastrointestinal: Present: no tenderness Integumentary: Present: warm and dry Neurologic: Present: alert and oriented x3 Musculoskeletal: Present: no cyanosis Psychiatric: Present: mood/affect appropriate - Lab 05/06/17 03:20 05/06/17 03:20 Most recent lab results ABG pH 7.37 pH Units (7.32-7.45) 04/30/17 08:31 ABG pCO2 42 mmHg (35-45) 04/30/17 08:31 ABG pO2 65 mmHg (85-104) L 04/30/17 08:31 ABG HCO3 24.3 mEQ/L (21-27) 04/30/17 08:31 ABG O2 Saturation 92 % (95-98) L 04/30/17 08:31 Calcium 8.9 mg/dL (8.6-10.8) 05/06/17 03:20 Phosphorus 4.2 mg/dL (2.3-4.7) 05/04/17 04:30 Magnesium 2.6 mg/dL (1.6-2.6) 05/04/17 04:30 Urine Creatinine 57 mg/dL 04/29/17 23:05 Urine Sodium 88.0 mEq/L 04/29/17 23:05 - VTE Documentation of Mechanical Device: Intermittent pneumatic compression device Consult Discharge Plan - Plan Referrals: Barron Carbajal, [Non-Partnered Physician] - 05/26/17 1:30 pm (Please call the office upon discharge for a sooner appointments..)
[2017-05-06] MEDS: traZODone 50 MG TABLET PO SCH (22:48)
[2017-05-07 04:14] LABS: Basophils % 0.2 %; Eosinophils # 0.7 K/mcL (0.0-0.6); Eosinophils % 5.9 %; Hematocrit 26.5 % (35.3-44.9); Hemoglobin 8.4 g/dL (11.5-15.4); Lymphocytes # 1.3 K/mcL (0.6-4.6); Lymphocytes % 11.5 %; Mean Corpuscular HGB Conc 31.7 g/dL (31.6-35.5); Mean Corpuscular Hemoglobin 26.9 pg (28.0-33.3); Mean Corpuscular Volume 84.9 fL (83.0-100.0); Mean Platelet Volume 10.8 fL (9.4-12.4); Monocytes # 0.9 K/mcL (0.0-1.3); Neutrophils # 8.1 K/mcL (1.6-8.9); Platelet Count 207 K/mcL (140-400); Red Blood Count 3.12 M/mcL (3.82-4.97); Red Cell Distribution Width 17.5 % (11.5-14.5); Segmented Neutrophils % 70.4 %
[2017-05-07 04:23] LABS: Calcium 9.1 mg/dL (8.6-10.8); Potassium 3.9 mEq/L (3.5-4.5)
[2017-05-07 04:25] LABS: Albumin 2.9 g/dL (3.5-5.0); Albumin/Globulin Ratio 1.1 (1.1-2.2); Bilirubin,Indirect 0.6 mg/dL (0.0-1.2); Bilirubin,Total 1.6 mg/dL (0.2-1.2); Globulin 2.7 g/dL (2.4-3.5); Total Protein 5.6 g/dL (6.0-8.3)
[2017-05-07] MEDS: *HR* Heparin 5,000 UNIT/ML VIAL SQ SCH ×3 (05:43→22:20)
[2017-05-07] MEDS: Piperacillin/Tazobactam 3.375 GM in D5% in Water (Mini-Bag+) 100 ML IVPB SCH ×2 (05:51→16:58)
[2017-05-07] MEDS: *HR* OxyCODONE Immed Rel 5 MG TABLET PO PRN ×3 (05:52→21:28)
[2017-05-07] MEDS: Metoprolol XL (24 HR) Succ 25 MG TAB.ER.24H PO SCH ×2 (08:00→21:30)
--- NOTE | 2017-05-07 08:09 | Internal Med Progress Note ---
Date of Encounter: 05/07/17 Time of Encounter: 08:08 - Assessment and plan (1) DEAN (acute kidney injury) Current Visit: Yes Status: Acute Assessment and plan: (2) CHF (congestive heart failure) Current Visit: Yes Status: Acute Qualifiers: Congestive heart failure type: systolic Congestive heart failure chronicity : acute on chronic Qualified Code(s): I50.23 - Acute on chronic systolic ( congestive) heart failure (3) Atrial fibrillation with RVR Current Visit: Yes Status: Acute (4) DVT prophylaxis Current Visit: Yes Status: Acute (5) Decubitus ulcer Current Visit: No Status: Acute Qualifiers: Pressure ulcer location: back, unspecified location Pressure ulcer stage: unstageable Qualified Code(s): L89.100 - Pressure ulcer of unspecified part of back, unstageable (6) Transaminitis Current Visit: Yes Status: Acute (7) Venous stasis of lower extremity Current Visit: Yes Status: Acute (8) Edema Current Visit: No Status: Chronic Qualifiers: Edema type: unspecified Qualified Code(s): R60.9 - Edema, unspecified - Constitutional Vitals: Temp Pulse Resp BP Pulse Ox 97.8 F 78 16 129/75 98 05/07/17 07:32 05/07/17 07:32 05/07/17 07:32 05/07/17 07:32 05/07/17 07:48 General appearance: Present: cooperative, pleasant, no acute distress Internal Medicine: Result - Labs CBC & Chem 7: 05/07/17 Unknown 05/07/17 Unknown Labs: Short CBC 05/07/17 Range/Units Unknown WBC 11.4 H (4.3-11.1) K/mcL Hgb 8.4 L (11.5-15.4) g/dL Hct 26.5 L (35.3-44.9) % Plt Count 207 (140-400) K/mcL Neutrophils # 8.1 (1.6-8.9) K/mcL BMP 05/07/17 Unknown Sodium 138 Potassium 3.9 Chloride 100 Carbon Dioxide 27 BUN 32 H D Creatinine 3.65 H Glucose 90 Calcium 9.1 Liver Function 05/07/17 Range/Units Unknown Total Bilirubin 1.6 H (0.2-1.2) mg/dL Direct Bilirubin 1.0 H (0.0-0.5) mg/dL AST 74 H (5-34) Units/L ALT 46 (0-55) Units/L Alkaline Phosphatase 222 H (38-126) Units/L Albumin 2.9 L (3.5-5.0) g/dL - ABG Interpretation ABG results: ABG ABG pH 7.37 pH Units (7.32-7.45) 04/30/17 08:31 ABG pCO2 42 mmHg (35-45) 04/30/17 08:31 ABG pO2 65 mmHg (85-104) L 04/30/17 08:31 ABG O2 Saturation 92 % (95-98) L 04/30/17 08:31 PT/INR, D-dimer PT 10.5 Seconds (9.4-12.1) 05/04/17 04:30 - Impressions Impressions Guidance Needle Placement Ultrasound 05/06/17 00:00 IMPRESSION: Successful ultrasound and fluoroscopy guided tunneled catheter placement . D/ / Vicente Phelps MD / Vicente Phelps MD Interpreting Provider: Vicente Phelps MD Insertion Tunneled Catheter 05/06/17 09:07 IMPRESSION: Successful ultrasound and fluoroscopy guided tunneled catheter placement . D/ / Vicente Phelps MD / Vicente Phelps MD Interpreting Provider: Vicente Phelps MD - VTE Documentation of Mechanical Device: Intermittent pneumatic compression device Consult Discharge Plan - Plan Referrals: Barron Carbajal DO [Non-Partnered Physician] - 05/26/17 1:30 pm (Please call the office upon discharge for a sooner appointments..)
[2017-05-07] MEDS ORDERED: Aminoglycoside Consult 1 EACH MC ONE (09:46)
--- NOTE | 2017-05-07 10:21 | Nephrology Progress Note ---
Date of Encounter: 05/07/17 Time of Encounter: : - Assessment and Plan (1) DEAN (acute kidney injury) Current Visit: Yes Status: Acute Plan for HD tomorrow Continues with no UOP Waiting on outpatient dialysis chair/time at [facility] Will continue to monitor for renal recovery Avoid nephrotoxins if possible Baseline renal function >60 (2) Atrial fibrillation with RVR Current Visit: Yes Status: Acute Rate is controlled Subjective Principal diagnosis: Septic shock Interval history: Patient seen and examined. Patient sleeping soundly, family at bedside. Objective - Vital Signs Vital signs: Vital Signs Temp Pulse Resp BP Pulse Ox 05/07/17 07:48 98 05/07/17 07:32 97.8 F 78 16 129/75 98 05/07/17 04:45 98.2 F 81 16 128/81 99 05/07/17 00:04 98.4 F 70 17 97/62 96 05/06/17 20:17 98.2 F 72 17 116/75 97 05/06/17 19:50 97 05/06/17 16:26 98.0 F 83 16 108/70 96 05/06/17 12:30 97.7 F 18 102/77 05/06/17 12:10 110/56 05/06/17 11:55 117/38 05/06/17 11:40 102/49 05/06/17 11:25 103/50 05/06/17 11:10 104/50 05/06/17 10:55 100/54 05/06/17 10:40 117/53 05/06/17 10:25 103/51 Intake and Output 05/06/17 05/07/17 05/07/17 23:59 07:59 15:59 Intake Total 100 / 100 100 / 100 Balance 100 / 100 100 / 100 Intake: IV Fluids 100 / 100 100 / 100 Zosyn 3.375 GM In 100 / 100 100 / 100 Dextrose 5% (Minibag+) 100 ML 100 ML @ 25 mls/hr IVPB Q12HR [facility] Rx#: [id number] Other: Weight 147.6 kg Patient Weight 05/07/17 23:59 Weight 147.6 kg - General Appearance General appearance: Present: obese EENT: Present: ATNC Respiratory: Present: clear Cardiology: Present: edema, normal S1, normal S2 Dialysis Vascular Access: Venous Catheter Gastrointestinal: Present: no tenderness, obese Integumentary: Present: warm and dry Neurologic: Present: alert and oriented x3 - Lab 05/07/17 Unknown 05/07/17 Unknown Most recent lab results ABG pH 7.37 pH Units (7.32-7.45) 04/30/17 08:31 ABG pCO2 42 mmHg (35-45) 04/30/17 08:31 ABG pO2 65 mmHg (85-104) L 04/30/17 08:31 ABG HCO3 24.3 mEQ/L (21-27) 04/30/17 08:31 ABG O2 Saturation 92 % (95-98) L 04/30/17 08:31 Calcium 9.1 mg/dL (8.6-10.8) 05/07/17 Unknown Phosphorus 4.2 mg/dL (2.3-4.7) 05/04/17 04:30 Magnesium 2.6 mg/dL (1.6-2.6) 05/04/17 04:30 Urine Creatinine 57 mg/dL 04/29/17 23:05 Urine Sodium 88.0 mEq/L 04/29/17 23:05 - VTE Documentation of Mechanical Device: Intermittent pneumatic compression device Consult Discharge Plan - Plan Referrals: Barron Carbajal DO [Non-Partnered Physician] - 05/26/17 1:30 pm (Please call the office upon discharge for a sooner appointments..)
[2017-05-07] MEDS ORDERED: 0.9 % Sodium Chloride 500 ML ONE (11:14)
[2017-05-07] MEDS ORDERED: *HR* Metoprolol 5 MG/5 ML VIAL IVP STA (11:33)
[2017-05-07] MEDS ORDERED: 0.9 % Sodium Chloride 500 ML IVC PRN (11:34)
[2017-05-07] MEDS ORDERED: *HR* Metoprolol 5 MG/5 ML VIAL IVP ONE (11:41)
[2017-05-07] MEDS ORDERED: 0.9 % Sodium Chloride 250 ML IVC PRN (11:55)
[2017-05-07] MEDS ORDERED: 0.9 % Sodium Chloride 500 ML IVC ONE (11:56)
--- NOTE | 2017-05-07 14:32 | Cardiology Progress Note ---
Date of Encounter: 05/07/17 Time of Encounter: 14:30 Assessment and Plan (1) DEAN (acute kidney injury) Current Visit: Yes Status: Acute Per Cardiology: Nephrology following. Discussed with primary and nephrology team, plan for LHC in am if medically appropriate and dialysis after. (2) Atrial fibrillation with RVR Current Visit: Yes Status: Acute Per Cardiology: Apparent new onset previously during this stay. Had been sinus rhythm this morning, however showed a flutter with RVR in the 150s with physical therapy and getting up out of bed today. Patient converted back to sinus rhythm prior to receiving IV Lopressor. Currently on Toprol-XL 12 mg by mouth daily, will increase to twice a day and monitor heart rate and blood pressure closely. Regarding long-term anticoagulation, [id number] score 4 (age, gender, HTN, CHF history)-- possible initiation of Coumadin once catheterization completed. Additionally, H&H continued to downward trend, we will guaiac stool and monitor. Patient and family currently agreeable to Coumadin if appropriate and when able. On SQ Heparin. (3) Cardiomyopathy Current Visit: Yes Status: Acute Per cardiology: Cardiomyopathy in setting of severe illness. Mild enzyme elevation likely related to DEAN. LVEF estimated to be 35%. Repeat limited study with LVEF 40-45% . Per discussion with kenna Marcial for [facility]. Currently receiving dialysis during this hospital stay. Patient back on aspirin and platelets appear to be stable. Again, H&H downtrending, will monitor for any acute bleeding and guaiac stools. Patient prefers to not proceed with catheterization today, however agreeable for catheterization tomorrow. Plan for LHC tomorrow assuming clinically stable. Currently chest pain-free and able to lay flat this morning. On beta glory and aspirin. Currently off statin due to elevated LFTs. Relatively euvolemic on exam, according to records patient's net negative 1614ml. I had lengthy discussion with patient and family regarding catheterization and all questions answered. Qualifiers: Cardiomyopathy type: other Qualified Code(s): I42.8 - Other cardiomyopathies Discussion w patient/family: The assessment and plan as outlined above was discussed with the patient and/or family members who expressed understanding and agreement. All questions were answered. Thank you for involving us in the care of your patient. Please call with any questions. Subjective Principal diagnosis: Decreased EF, CMP, PAF Interval history: Patient denies any new concerns or complaints overnight. She reports overall pressures of breath has slightly improved. She denies any chest pain or palpitations. Reports elevated heart rate this morning with physical therapy and standing out of bed for the first time in days. Objective Vital Signs, Last 4 Hours Temp Pulse Resp BP Pulse Ox 05/07/17 12:34 98.0 F 05/07/17 12:00 81 16 138/89 98 General: Conversant HEENT: Atraumatic, Normocephaly Cardiac: Reg Rate and Rhythm, Normal S1 and S2, No Murmur Lungs: Other (clear anteriorly, diminished throughout) Neuro: Alert and responsive, No focal deficits noted Abdomen: Soft, Non-Tender, Other (obese) Musculoskeletal: No Chest Wall Tenderness Extremities: Other (+1 nonpitting biltateral LE) Results 05/07/17 Unknown 05/07/17 Unknown Lab Results Laboratory Tests 04/28/17 04/28/17 05/02/17 12:00 12:00 05:19 Hgb 11.8 Hct 37.3 Plt Count 65 L INR Creatinine 2.71 H Est GFR (Non-Af Amer) 17 L 05/04/17 05/06/17 05/07/17 04:30 03:20 Unknown Hgb 8.4 L Hct 26.5 L Plt Count 207 INR 1.0 Creatinine 4.13 H Est GFR (Non-Af Amer) 05/07/17 Unknown Hgb Hct Plt Count INR Creatinine 3.65 H Est GFR (Non-Af Amer) 12 L ITS Impressions Liver Ultrasound 04/28/17 00:00 IMPRESSION: Unremarkable right upper quadrant ultrasound. D/ / Primo Gaines MD / Primo Gaines MD Interpreting Provider: Primo Gaines MD Chest X-Ray 04/28/17 15:56 IMPRESSION: A right internal jugular venous catheter has been placed. The tip of the catheter is superimposed on the right lower lobe pulmonary artery. This is likely related to rotation on this portable examination. Follow-up non rotated study or CT examination would be helpful. D/ / Anoop Stock MD / Anoop Stock MD Interpreting Provider: Anoop Stock MD Chest X-Ray 04/28/17 18:08 IMPRESSION: Right internal jugular central venous catheter tip projects over the lower SVC. D/ / Bhupinder Raines MD / Bhupinder Raines MD Interpreting Provider: Bhupinder Raines MD Guidance Needle Placement Ultrasound 04/29/17 00:00 IMPRESSION: Successful ultrasound guided non-tunneled right jugular temporary hemodialysis catheter placement. D/ /29/2017 13:04:30 Sarai Quispe MD / lesli Interpreting Provider: Sarai Quispe MD Insertion Non-Tunneled Catheter 04/29/17 00:00 IMPRESSION: Successful ultrasound guided non-tunneled right jugular temporary hemodialysis catheter placement. D/ /29/2017 13:04:30 Sarai Quispe MD / lesli Interpreting Provider: Sarai Quispe MD Chest X-Ray 04/29/17 04:00 IMPRESSION: 1. Stable lines and tubes. 2. Worsening left base opacity with pleural effusion, otherwise, stable cardiopulmonary status. D/ / 04/29/2017 07:49:03 Gudelia Valero MD / tiffanie Interpreting Provider: Gudelia Valero MD Chest X-Ray 04/29/17 09:53 IMPRESSION: 1. Interval placement of right IJ hemodialysis catheter with the tip near the cavoatrial junction. No pneumothorax pre 2. Otherwise, stable chest with cardiomegaly and pulmonary edema and possible small pleural effusions. D/ / Ifrah Goodwin MD / Ifrah Goodwin MD Interpreting Provider: Ifrah Goodwin MD Retroperitoneum Ultrasound 04/29/17 10:30 IMPRESSION: No hydronephrosis. No abnormality in the kidneys. D/ / Willi Wilcox MD / Willi Wilcox MD Interpreting Provider: Willi Wilcox MD Guidance Needle Placement Ultrasound 05/06/17 00:00 IMPRESSION: Successful ultrasound and fluoroscopy guided tunneled catheter placement . D/ / Vicente Phelps MD / Vicente Phelps MD Interpreting Provider: Vicente Phelps MD Insertion Tunneled Catheter 05/06/17 09:07 IMPRESSION: Successful ultrasound and fluoroscopy guided tunneled catheter placement . D/ / Vicente Phelps MD / Vicente Phelps MD Interpreting Provider: Vicente Phelps MD Active Medications Acetaminophen (Tylenol) 650 mg PO Q6HR PRN PRN Reason: Fever Stop: 11/01/17 17:32 Last Admin: 05/02/17 18:05 Dose: 650 mg Aspirin (Aspirin Ec) 81 mg PO DAILY JENNA Stop: 11/07/17 09:01 Citalopram Hydrobromide (Celexa) 20 mg PO DAILY JENNA Stop: 11/02/17 21:31 Last Admin: 05/07/17 08:00 Dose: 20 mg Dextrose/Water (Dextrose 50% (Syg)) 25 ml IVP AD PRN PRN Reason: Hypoglycemia Stop: 10/29/17 19:52 Fluticasone Propionate (Flonase) 50 mcg NS DAILY PRN; Protocol PRN Reason: Allergy Symptoms Stop: 10/29/17 07:02 Glucagon (Glucagen) 1 mg IM ONCE PRN PRN Reason: Hypoglycemia Stop: 10/29/17 19:52 Glucose (Gluctose) 15 gm PO ONCE PRN PRN Reason: Hypoglycemia Stop: 10/29/17 19:52 Glucose (Gluctose) 30 gm PO ONCE PRN PRN Reason: Hypoglycemia Stop: 10/29/17 19:52 Heparin Sodium (Porcine) (Heparin) 5,000 unit SQ Q8HCO [facility] Stop: 10/30/17 14:01 Last Admin: 05/07/17 14:19 Dose: 5,000 unit Heparin Sodium (Porcine) (Heparin) 0 unit IV ONCE PRN PRN Reason: Hemodialysis Catheter Packing Dextrose (Dextrose 5%) 1,000 mls @ 100 mls/hr IVC .Q10H PRN PRN Reason: HYPOGLYCEMIA Stop: 11/01/17 17:46 Sodium Chloride (0.9 % Sodium Chloride) 1,000 mls @ 0 mls/hr PRIME .Q0M JENNA PRN Reason: As Directed Stop: 11/03/17 10:16 Piperacillin Sod/Tazobactam (Sod 3.375 gm/ Dextrose) 100 mls @ 25 mls/hr IVPB Q12HR [facility] Stop: 11/04/17 18:01 Last Infusion: 05/07/17 10:00 Dose: Infused Sodium Chloride (0.9 % Sodium Chloride) 250 mls @ 937.5 mls/hr IVC .Q16M PRN PRN Reason: Hypotension Stop: 11/06/17 11:35 Metoprolol Succinate (Toprol Xl) 12.5 mg PO BID [facility] Stop: 11/06/17 21:01 Omeprazole (Prilosec) 40 mg PO DAILY@0730 [facility] PRN Reason: Protocol Stop: 11/04/17 07:31 Last Admin: 05/07/17 08:00 Dose: 40 mg Ondansetron HCl (Zofran) 4 mg IVP Q6HR PRN; Protocol PRN Reason: Nausea Stop: 10/28/17 14:15 Last Admin: 05/05/17 20:09 Dose: 4 mg Oxycodone HCl (Roxicodone) 7.5 mg PO Q4HR PRN PRN Reason: Pain Stop: 11/03/17 14:28 Last Admin: 05/07/17 14:19 Dose: 7.5 mg Senna (Senna) 8.8 mg PO DAILY [facility] Stop: 10/31/17 11:01 Last Admin: 05/07/17 08:00 Dose: 8.8 mg Trazodone HCl (Trazodone) 100 mg PO HS JENNA Stop: 11/02/17 21:31 Last Admin: 05/06/17 22:48 Dose: 100 mg Vancomycin HCl (Vancocin) 0 each IVPB AD PRN PRN Reason: PULSE DOSE Stop: 11/01/17 19:01 - Imaging and Cardiology Echo: report reviewed Cardiac cath: pending - EKG Interpretation EKG results cardiology: other (aflutter rvr 150's this am, ECG showed later SR 70's, remains SR on tele) - VTE Documentation of Mechanical Device: Intermittent pneumatic compression device Consult Discharge Plan - Plan Referrals: Barron Carbajal DO [Non-Partnered Physician] - 05/26/17 1:30 pm (Please call the office upon discharge for a sooner appointments..)
--- NOTE | 2017-05-07 15:11 | Internal Med Progress Note ---
<Susan Pagan - Last Filed: 05/07/17 15:50> Date of Encounter: 05/07/17 Time of Encounter: 15:07 - Assessment and plan (1) DEAN (acute kidney injury) Current Visit: Yes Status: Acute Assessment and plan: On dialysis Nephro on consult, appreciate recs Per cardio and nephro, plan for LHC in am if medically appropriate and dialysis after Family and pt amenable to plan (2) CHF (congestive heart failure) Current Visit: Yes Status: Chronic Assessment and plan: This afternoon RN notified MD of HR> 100 and hypotensive during PT/OT. EKG x 2 and continuous monitoring of vitals pt until rate and BP control EF was decreased on admission, with estimated EF 35%, and limited repeat study demonstrating LVEF 40-45% Cardio on consult, appreciate recs Plan: Per Dr. Branham, recs for [facility]. Continue BB therapy. See cardio consult note for additional details. Qualifiers: Congestive heart failure type: systolic Congestive heart failure chronicity : acute on chronic Qualified Code(s): I50.23 - Acute on chronic systolic ( congestive) heart failure (3) Atrial fibrillation with RVR Current Visit: Yes Status: Acute Assessment and plan: See above. Now controlled. Cardio on consul, appreciate recs Plan: -CHADVASC score 4 (age, gender, HTN, CHF history). 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 Per cardio, decision to commence coumadin, pending [facility]. (4) Transaminitis Current Visit: Yes Status: Acute Assessment and plan: Transaminitis, Likely 2/2 to hypotension in setting of septic shock GI on consult and recommended monitoring LFTs. LFts levels increasing, in background of septic shock Hepatitis workup negative. Plans: We will continue to trend LFTs Holding statins (5) Decubitus ulcer Current Visit: No Status: Acute Assessment and plan: Per nurse note, pt refuses to be moved for view of ulcer Lateral sides of back clear of echymossis, redness or wounds. Qualifiers: Pressure ulcer location: back, unspecified location Pressure ulcer stage: unstageable Qualified Code(s): L89.100 - Pressure ulcer of unspecified part of back, unstageable (6) Venous stasis of lower extremity Current Visit: Yes Status: Acute Assessment and plan: L LE hyperpigmentation involving the lower third of the leg. R: bluish-red discoloration on medial side of leg Likely 2/2 to venous stasis due pt's debility and immobilization Leg elevation, exercise, and compression therapy for oxygen transport to the skin and subcutaneous tissues and decrease of edema For exercise PT/OT on consult Compression wrapping therapy initiated yesterday, following patient's consent Tolerated overnight, however declined this morning (7) Edema Current Visit: No Status: Chronic Qualifiers: Edema type: unspecified Qualified Code(s): R60.9 - Edema, unspecified (8) DVT prophylaxis Current Visit: Yes Status: Acute Assessment and plan: Wells' Score for risk of DVT - minimum 4 ( Bedridden recently >3 days , Collateral (nonvaricose) superficial veins present, Entire leg swollen, immobilization of the lower extremity 2/2 to pt's debility) Pt on Heparin SubQ and plan to continue Per nurse communication, pt refuses ICDs - Time Spent With Patient Greater than 35 minutes - Subjective Interval history: No acute events overnight. This afternoon, during PT/OT, patient had elevated HR. EKG demonstrated atrial flutter. Cardio was paged. Pt denied SOB, palpitations, dizziness or chest pain during acute episode. Pt tolerated compression therapy overnight, but elected to remove dressing this morning. - Constitutional Vitals: Temp Pulse Resp BP Pulse Ox 98.0 F 81 16 138/89 98 05/07/17 12:34 05/07/17 12:00 05/07/17 12:00 05/07/17 12:00 05/07/17 12:00 General appearance: Present: cooperative, pleasant, no acute distress - Head Head exam: Present: atraumatic, normocephalic - Respiratory Respiratory exam: Present: accessory muscle use, CTAB. Absent: rales, rhonchi, wheezes - Expanded Lower Extremities Exam Lower Leg exam: Present: ecchymosis ( blue-mcclellan hyperpigmentation on b/l medial lower legs, with circumferential involvement on left. Discoloration improved from yesterday) Internal Medicine: Result - Labs CBC & Chem 7: 05/07/17 Unknown 05/07/17 Unknown Labs: Short CBC 05/07/17 Range/Units Unknown WBC 11.4 H (4.3-11.1) K/mcL Hgb 8.4 L (11.5-15.4) g/dL Hct 26.5 L (35.3-44.9) % Plt Count 207 (140-400) K/mcL Neutrophils # 8.1 (1.6-8.9) K/mcL BMP 05/07/17 Unknown Sodium 138 Potassium 3.9 Chloride 100 Carbon Dioxide 27 BUN 32 H D Creatinine 3.65 H Glucose 90 Calcium 9.1 Liver Function 05/07/17 Range/Units Unknown Total Bilirubin 1.6 H (0.2-1.2) mg/dL Direct Bilirubin 1.0 H (0.0-0.5) mg/dL AST 74 H (5-34) Units/L ALT 46 (0-55) Units/L Alkaline Phosphatase 222 H (38-126) Units/L Albumin 2.9 L (3.5-5.0) g/dL - ABG Interpretation ABG results: ABG ABG pH 7.37 pH Units (7.32-7.45) 04/30/17 08:31 ABG pCO2 42 mmHg (35-45) 04/30/17 08:31 ABG pO2 65 mmHg (85-104) L 04/30/17 08:31 ABG O2 Saturation 92 % (95-98) L 04/30/17 08:31 PT/INR, D-dimer PT 10.5 Seconds (9.4-12.1) 05/04/17 04:30 - Diagnostic Studies Other Images Additional comments: Liver Ultrasound 04/28/17 00:00 IMPRESSION: Unremarkable right upper quadrant ultrasound. D/ / Primo Gaines MD / Primo Gaines MD Interpreting Provider: Primo Gaines MD Insertion Non-Tunneled Catheter 04/29/17 00:00 IMPRESSION: Successful ultrasound guided non-tunneled right jugular temporary hemodialysis catheter placement. D/ / 04/29/2017 13:04:30 Sarai Quispe MD / lesli Interpreting Provider: Sarai Quispe MD Chest X-Ray 04/29/17 09:53 IMPRESSION: 1. Interval placement of right IJ hemodialysis catheter with the tip near the cavoatrial junction. No pneumothorax pre 2. Otherwise, stable chest with cardiomegaly and pulmonary edema and possible small pleural effusions. D/ / Ifrah Goodwin MD / Ifrah Goodwin MD Interpreting Provider: Ifrah Goodwin MD Retroperitoneum Ultrasound 04/29/17 10:30 IMPRESSION: No hydronephrosis. No abnormality in the kidneys. D/ / Willi Wilcox MD / Willi Wilcox MD Interpreting Provider: Willi Wilcox MD Guidance Needle Placement Ultrasound 05/06/17 00:00 IMPRESSION: Successful ultrasound and fluoroscopy guided tunneled catheter placement . D/ / Vicente Phelps MD / Vicente Phelps MD Interpreting Provider: Vicente Phelps MD Insertion Tunneled Catheter 05/06/17 09:07 IMPRESSION: Successful ultrasound and fluoroscopy guided tunneled catheter placement . D/ / Vicente Phelps MD / Vicente Phelps MD Interpreting Provider: Vicente Phelps MD - VTE Documentation of Mechanical Device: Intermittent pneumatic compression device Consult Discharge Plan - Plan Referrals: Barron Carbajal, DO [Non-Partnered Physician] - 05/26/17 1:30 pm (Please call the office upon discharge for a sooner appointments..) <Bg Tillman - Last Filed: 05/07/17 19:05> Date of Encounter: 05/07/17 - Assessment and plan (1) Atrial flutter Current Visit: Yes Status: Acute Qualifiers: Atrial flutter type: typical Qualified Code(s): I48.3 - Typical atrial flutter (2) ATN (acute tubular necrosis) Current Visit: Yes Status: Suspected (3) Hypertension Current Visit: No Status: Chronic Qualifiers: Hypertension type: essential hypertension Qualified Code(s): I10 - Essential (primary) hypertension (4) CHF (congestive heart failure) Current Visit: Yes Status: Chronic Qualifiers: Congestive heart failure type: systolic Congestive heart failure chronicity : acute on chronic Qualified Code(s): I50.23 - Acute on chronic systolic ( congestive) heart failure (5) Atrial fibrillation Current Visit: Yes Status: Acute Qualifiers: Atrial fibrillation type: paroxysmal Qualified Code(s): I48.0 - Paroxysmal atrial fibrillation (6) UTI (urinary tract infection) Current Visit: No Status: Acute Qualifiers: Urinary tract infection type: acute cystitis Hematuria presence: with hematuria Qualified Code(s): N30.01 - Acute cystitis with hematuria (7) Acute respiratory failure with hypoxia and hypercarbia Current Visit: Yes Status: Resolved (8) Cardiomyopathy Current Visit: Yes Status: Acute Qualifiers: Cardiomyopathy type: other Qualified Code(s): I42.8 - Other cardiomyopathies (9) Venous stasis of lower extremity Current Visit: Yes Status: Acute (10) Decubitus ulcer Current Visit: No Status: Acute Qualifiers: Pressure ulcer location: back, unspecified location Pressure ulcer stage: unstageable Qualified Code(s): L89.100 - Pressure ulcer of unspecified part of back, unstageable (11) Septic shock Current Visit: Yes Status: Resolved - Constitutional Vitals: Temp Pulse Resp BP Pulse Ox 98.5 F 78 16 138/80 97 05/07/17 16:28 05/07/17 16:28 05/07/17 16:28 05/07/17 16:28 05/07/17 16:28 Internal Medicine: Result - Labs CBC & Chem 7: 05/07/17 Unknown 05/07/17 Unknown Labs: Short CBC 05/07/17 Range/Units Unknown WBC 11.4 H (4.3-11.1) K/mcL Hgb 8.4 L (11.5-15.4) g/dL Hct 26.5 L (35.3-44.9) % Plt Count 207 (140-400) K/mcL Neutrophils # 8.1 (1.6-8.9) K/mcL BMP 05/07/17 Unknown Sodium 138 Potassium 3.9 Chloride 100 Carbon Dioxide 27 BUN 32 H D Creatinine 3.65 H Glucose 90 Calcium 9.1 Liver Function 05/07/17 Range/Units Unknown Total Bilirubin 1.6 H (0.2-1.2) mg/dL Direct Bilirubin 1.0 H (0.0-0.5) mg/dL AST 74 H (5-34) Units/L ALT 46 (0-55) Units/L Alkaline Phosphatase 222 H (38-126) Units/L Albumin 2.9 L (3.5-5.0) g/dL - ABG Interpretation ABG results: ABG ABG pH 7.37 pH Units (7.32-7.45) 04/30/17 08:31 ABG pCO2 42 mmHg (35-45) 04/30/17 08:31 ABG pO2 65 mmHg (85-104) L 04/30/17 08:31 ABG O2 Saturation 92 % (95-98) L 04/30/17 08:31 PT/INR, D-dimer PT 10.5 Seconds (9.4-12.1) 05/04/17 04:30 - Attending Attestation I examined this patient and my medical decision-making was reviewed with the Resident Physician on 05/07/17. I agree with the documented findings, disposition and treatment plan as described except to the extent set forth below. Ms. Wei is currently admitted for sepsis with renal failure. She remains moderate to high risk due to potential for worsening cardiac issues - she had episode of a flutter with 2:1 block today. Ms. Wei got up and had a flutter. No CP or SOB. BP was low but responded to some fluids. Converted to NSR. Meds adjusted per card. Otherwise no new issues. Exam Alert. Comfortable Heart reg and tachy Lungs clear Abd soft Edema present I/P 1. A flutter 2. Renal failure Further diagnoses and plan as above.
--- NOTE | 2017-05-07 16:53 | Electrocardiograph Report ---
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
[2017-05-07] MEDS: *HR* Acetylcysteine 20% 600 MG/3 ML ORAL SYRINGE PO SCH (21:28)
[2017-05-07] MEDS: traZODone 50 MG TABLET PO SCH (21:35)
[2017-05-08] MEDS: Piperacillin/Tazobactam 3.375 GM in D5% in Water (Mini-Bag+) 100 ML IVPB SCH ×2 (05:32→18:17)
[2017-05-08] MEDS: *HR* Heparin 5,000 UNIT/ML VIAL SQ SCH (05:32)
[2017-05-08 05:52] LABS: Basophils % 0.2 %; Eosinophils # 0.7 K/mcL (0.0-0.6); Eosinophils % 6.7 %; Hematocrit 27.2 % (35.3-44.9); Hemoglobin 8.6 g/dL (11.5-15.4); Immature Granulocytes % 2.9 % (0-4); Lymphocytes # 1.2 K/mcL (0.6-4.6); Lymphocytes % 12.1 %; Mean Corpuscular HGB Conc 31.6 g/dL (31.6-35.5); Mean Corpuscular Hemoglobin 27.7 pg (28.0-33.3); Mean Corpuscular Volume 87.5 fL (83.0-100.0); Mean Platelet Volume 10.8 fL (9.4-12.4); Monocytes # 0.8 K/mcL (0.0-1.3); Monocytes % 8.3 %; Platelet Count 266 K/mcL (140-400); Red Blood Count 3.11 M/mcL (3.82-4.97); Red Cell Distribution Width 17.6 % (11.5-14.5); Segmented Neutrophils % 69.8 %
[2017-05-08 06:14] LABS: Albumin 2.9 g/dL (3.5-5.0); Albumin/Globulin Ratio 0.9 (1.1-2.2); Bilirubin,Indirect 0.5 mg/dL (0.0-1.2); Bilirubin,Total 1.5 mg/dL (0.2-1.2); Calcium 9.1 mg/dL (8.6-10.8); Globulin 3.2 g/dL (2.4-3.5); Potassium 4.1 mEq/L (3.5-4.5); Total Protein 6.1 g/dL (6.0-8.3)
--- NOTE | 2017-05-08 06:58 | Internal Med Progress Note ---
Date of Encounter: 05/08/17 Time of Encounter: 06:58 - Assessment and plan (1) DEAN (acute kidney injury) Current Visit: Yes Status: Acute (2) CHF (congestive heart failure) Current Visit: Yes Status: Chronic Qualifiers: Congestive heart failure type: systolic Congestive heart failure chronicity : acute on chronic Qualified Code(s): I50.23 - Acute on chronic systolic ( congestive) heart failure (3) Atrial fibrillation with RVR Current Visit: Yes Status: Acute (4) Transaminitis Current Visit: Yes Status: Acute (5) Decubitus ulcer Current Visit: No Status: Acute Qualifiers: Pressure ulcer location: back, unspecified location Pressure ulcer stage: unstageable Qualified Code(s): L89.100 - Pressure ulcer of unspecified part of back, unstageable (6) Venous stasis of lower extremity Current Visit: Yes Status: Acute (7) Edema Current Visit: No Status: Chronic Qualifiers: Edema type: unspecified Qualified Code(s): R60.9 - Edema, unspecified (8) DVT prophylaxis Current Visit: Yes Status: Acute - Subjective Interval history: No acute events overnight. This afternoon, during PT/OT, patient had elevated HR. EKG demonstrated atrial flutter. Cardio was paged. Pt denied SOB, palpitations, dizziness or chest pain during acute episode. Pt tolerated compression therapy overnight, but elected to remove dressing this morning. - Constitutional Vitals: Temp Pulse Resp BP Pulse Ox 97.6 F 71 17 128/80 100 05/08/17 03:35 05/08/17 03:35 05/08/17 03:35 05/08/17 03:35 05/08/17 03:35 General appearance: Present: cooperative, pleasant, no acute distress Internal Medicine: Result - Labs CBC & Chem 7: 05/08/17 05:44 05/08/17 05:44 Labs: Short CBC 05/08/17 Range/Units 05:44 WBC 10.0 (4.3-11.1) K/mcL Hgb 8.6 L (11.5-15.4) g/dL Hct 27.2 L (35.3-44.9) % Plt Count 266 (140-400) K/mcL Neutrophils # 7.0 (1.6-8.9) K/mcL BMP 05/08/17 05:44 Sodium 138 Potassium 4.1 Chloride 100 Carbon Dioxide 25 BUN 41 H Creatinine 5.02 H Glucose 92 Calcium 9.1 Liver Function 05/08/17 Range/Units 05:44 Total Bilirubin 1.5 H (0.2-1.2) mg/dL Direct Bilirubin 1.0 H (0.0-0.5) mg/dL AST 85 H (5-34) Units/L ALT 52 (0-55) Units/L Alkaline Phosphatase 220 H (38-126) Units/L Albumin 2.9 L (3.5-5.0) g/dL - ABG Interpretation ABG results: ABG ABG pH 7.37 pH Units (7.32-7.45) 04/30/17 08:31 ABG pCO2 42 mmHg (35-45) 04/30/17 08:31 ABG pO2 65 mmHg (85-104) L 04/30/17 08:31 ABG O2 Saturation 92 % (95-98) L 04/30/17 08:31 PT/INR, D-dimer PT 10.5 Seconds (9.4-12.1) 05/04/17 04:30 - VTE Documentation of Mechanical Device: Intermittent pneumatic compression device Consult Discharge Plan - Plan Referrals: Barron Carbajal DO [Non-Partnered Physician] - 05/26/17 1:30 pm (Please call the office upon discharge for a sooner appointments..)
[2017-05-08] MEDS ORDERED: *HR* Heparin 10,000 UNIT/10 ML VIAL IV PRN (07:16)
[2017-05-08] MEDS ORDERED: 0.9 % Sodium Chloride 250 ML IVC PRN (07:16)
[2017-05-08] MEDS ORDERED: 0.9 % Sodium Chloride 1,000 ML ONE (08:38)
--- NOTE | 2017-05-08 09:42 | Physician Discharge Referral ---
<Susan Pagan - Last Filed: 05/08/17 09:40> ExtendedCare Referral Info Transfer To: SNF Provider in Charge after Transfer: PCP Institutional Level of Care: Skilled - Diagnosis (1) DEAN (acute kidney injury) Priority: Primary Status: Acute (2) CHF (congestive heart failure) Priority: Primary Status: Chronic (3) Atrial fibrillation with RVR Priority: Primary Status: Acute (4) Transaminitis Priority: Secondary Status: Acute (5) Decubitus ulcer Priority: Secondary Status: Chronic (6) Venous stasis of lower extremity Priority: Primary Status: Acute (7) Edema Status: Chronic (8) DVT prophylaxis Priority: Secondary Status: Acute Prognosis: Fair Aware of Diagnosis: Patient Aware of Prognosis: Patient - Transfer Medications Home Medications: RX: Alendronate Sodium [Fosamax] 70 mg PO QWEEK 02/13/16 [History] RX: Calcium Carb/Vitamin D3/Vit K1 [Calcium + D Soft Chewable Tab] 1 mg PO DAILY 02/13/16 [History] RX: Citalopram Hydrobromide [Celexa] 20 mg PO DAILY 02/13/16 [History] RX: Fluticasone Propionate Nasal [Flonase] 1 spr NS DAILY PRN 02/13/16 [History] RX: Furosemide [Lasix] 40 mg PO DAILY 02/13/16 [History] RX: Ranitidine HCl [Zantac] 150 mg PO BID 02/13/16 [History] RX: Solifenacin Succinate [Vesicare] 1 mg PO HS 02/13/16 [History] RX: Tolterodine Tartrate [Detrol] 2 mg PO BID 02/13/16 [History] RX: Silver Sulfadiazine [Silvadene] 1 appl TP DAILY #1 tube 02/18/16 [Rx] Amitriptyline [Elavil] 25 mg PO DAILY 04/28/17 [History] DULoxetine [Cymbalta] 30 mg PO BID 04/28/17 [History] HYDROcodone/Acet 7.5/325 mg [[place] 7.5-325 mg] 1 tab PO Q6H 04/28/17 [History] Naproxen [Naprosyn] 500 mg PO BID 04/28/17 [History] Nystatin POWDER [Nystop] 1 appl TP BID 04/28/17 [History] RX: Potassium Chloride [K-Tab ER] 20 meq PO DAILY 04/28/17 [History] RX: Trazodone HCl 100 mg PO BID 04/28/17 [History] Allergies/Adverse Reactions: 3 Allergy/AdvReac Type Severity Reaction Status Date / Time ibuprofen [From Motrin] AdvReac Nausea Verified 02/13/16 10:46 - Respiratory Orders Smoking Cessation: Smoking cessation has been advised. For more information, call the [employer] Line at 5-195-QKQM-NOW. CERTIFICATION: I certify that the transfer of the above named patient to an Extended Care Facility is necessary for the continuing treatment of the diagnosis listed. The above information is true and accurate reflection of patient's current condition. Confidential - Redisclosure prohibited without a patient's written consent. <Bg Tillman - Last Filed: 05/08/17 10:12> - Diagnosis (1) Atrial flutter Status: Acute (2) ATN (acute tubular necrosis) Status: Suspected (3) Hypertension Status: Chronic (4) CHF (congestive heart failure) Status: Chronic (5) Atrial fibrillation Status: Acute (6) UTI (urinary tract infection) Status: Acute (7) Acute respiratory failure with hypoxia and hypercarbia Status: Resolved (8) Cardiomyopathy Status: Acute (9) Venous stasis of lower extremity Status: Acute (10) Decubitus ulcer Status: Chronic (11) Septic shock Status: Resolved - Respiratory Orders Other (Keep sat greater than 92%) Smoking Cessation: Smoking cessation has been advised. For more information, call the [employer] Line at 5-447-HVXC-NOW. - Ancillary Orders May use pressure relief devices daily prn, May consult with Dentist, Pain Medicine Physician, Sewer Hand PRN - Advance Directives Code Status: Full Code - Mobility Orders Ambulate - Rehabiliation Orders Rehab Potential: Fair Rehab Orders: Evaluation for Physical Therapy, Evaluation for Occupational Therapy - Treatments Skin tear care topically daily PRN per policy, May check for fecal impaction rectally daily PRN, Fleet enema rectally every other day PRN cleansing purposes - Diet Orders Renal, Cardiac CERTIFICATION: I certify that the transfer of the above named patient to an Extended Care Facility is necessary for the continuing treatment of the diagnosis listed. The above information is true and accurate reflection of patient's current condition. Confidential - Redisclosure prohibited without a patient's written consent.
[2017-05-08] MEDS: Nystatin Cream 15 GM TUBE TP SCH ×2 (09:44→20:31)
[2017-05-08] MEDS: Metoprolol XL (24 HR) Succ 25 MG TAB.ER.24H PO SCH ×2 (09:44→20:31)
[2017-05-08] MEDS: Aspirin Enteric Coated 81 MG Tablet PO SCH (09:44)
[2017-05-08] MEDS: *HR* Acetylcysteine 20% 600 MG/3 ML ORAL SYRINGE PO SCH ×2 (09:54→20:32)
--- NOTE | 2017-05-08 10:04 | Nephrology Progress Note ---
Date of Encounter: 05/08/17 Time of Encounter: 10:02 - Assessment and Plan (1) DEAN (acute kidney injury) Current Visit: Yes Status: Acute Since I last saw the pt, she transferred out of the ICU and switched to iHD. Will arrange for HD on 3rd shift allowing a window of opportunity for Cardiology (I'll defer the indications and timing for LHC to them). She most likely has ATN and thus far has shown no signs of renal recovery. She now has a Permacath and should be arranged for outpt HD for Dialysis dependent DEAN. (2) Cardiomyopathy Current Visit: Yes Status: Acute As per primary and Cardiology Qualifiers: Cardiomyopathy type: other Qualified Code(s): I42.8 - Other cardiomyopathies (3) ATN (acute tubular necrosis) Current Visit: Yes Status: Acute Most likely etiology for the DEAN from the recent hypotension/shock/sepsis (4) Edema Current Visit: No Status: Chronic HD for UF and clearance this afternoon Qualifiers: Edema type: unspecified Qualified Code(s): R60.9 - Edema, unspecified (5) Hypertension Current Visit: No Status: Chronic Hx of, Qualifiers: Hypertension type: essential hypertension Qualified Code(s): I10 - Essential (primary) hypertension Subjective Principal diagnosis: Decreased EF, CMP, PAF Interval history: She was seen/examined earlier today. Her daughter was present. The pt has been seen by Cardiology and the Cardio COURT ORDERLY was present at the time of my interview/ exam. The pt may go for LHC today. Objective - Vital Signs Vital signs: Vital Signs Temp Pulse Resp BP Pulse Ox 05/08/17 07:22 97.8 F 79 16 142/84 98 05/08/17 03:35 97.6 F 71 17 128/80 100 05/07/17 23:48 97.7 F 71 17 117/75 99 05/07/17 19:07 97.8 F 80 19 138/76 97 05/07/17 16:28 98.5 F 78 16 138/80 97 05/07/17 12:34 98.0 F 05/07/17 12:00 81 16 138/89 98 Intake and Output 05/07/17 05/08/17 05/08/17 23:59 07:59 15:59 Intake Total 100 / 100 0 / 0 0 / 0 Balance 100 / 100 0 / 0 0 / 0 Intake: IV Fluids 100 / 100 Zosyn 3.375 GM In 100 / 100 Dextrose 5% (Minibag+) 100 ML 100 ML @ 25 mls/hr IVPB Q12HR [facility] Rx#: [id number] Oral 0 / 0 0 / 0 Other: Meal Breakfast Percent of Meal Consumed 0% Weight 147.6 kg 147 kg Patient Weight 05/08/17 23:59 Weight 147 kg - General Appearance General appearance: Present: appears started age, obese, chronically ill, fatigue, frail EENT: Present: ATNC, PERRL, mucous membranes moist Neck: Present: supple Respiratory: Present: clear Cardiology: Present: edema, regular rate, normal S1, normal S2 Dialysis Vascular Access: Venous Catheter (Right TDC with dressing C/D/I) Gastrointestinal: Present: normoactive bowel sounds, no tenderness, no guarding , obese Integumentary: Present: ecchymotic Neurologic: Present: no focal deficit, no asterixis Musculoskeletal: Present: no cyanosis, no clubbing Psychiatric: Present: mood/affect appropriate, cooperative - Lab 05/08/17 05:44 05/08/17 05:44 Most recent lab results ABG pH 7.37 pH Units (7.32-7.45) 04/30/17 08:31 ABG pCO2 42 mmHg (35-45) 04/30/17 08:31 ABG pO2 65 mmHg (85-104) L 04/30/17 08:31 ABG HCO3 24.3 mEQ/L (21-27) 04/30/17 08:31 ABG O2 Saturation 92 % (95-98) L 04/30/17 08:31 Calcium 9.1 mg/dL (8.6-10.8) 05/08/17 05:44 Phosphorus 4.2 mg/dL (2.3-4.7) 05/04/17 04:30 Magnesium 2.6 mg/dL (1.6-2.6) 05/04/17 04:30 Urine Creatinine 57 mg/dL 04/29/17 23:05 Urine Sodium 88.0 mEq/L 04/29/17 23:05 - VTE Documentation of Mechanical Device: Intermittent pneumatic compression device Consult Discharge Plan - Plan Referrals: Barron Carbajal DO [Non-Partnered Physician] - 05/26/17 1:30 pm (Please call the office upon discharge for a sooner appointments..)
--- NOTE | 2017-05-08 12:31 | Cardiology Progress Note ---
Date of Encounter: 05/08/17 Time of Encounter: 12:30 Assessment and Plan (1) DEAN (acute kidney injury) Current Visit: Yes Status: Acute Per Cardiology: Presented with DEAN and now requiring dialysis, Has permacath. Nephrology following. Discussed with primary and nephrology team. Plan for dialysis today. (2) Atrial fibrillation with RVR Current Visit: Yes Status: Acute Per Cardiology: Apparent new onset previously during this stay. Remains SR with avg HR 73 on Toprolx XL 12.5mg PO BID. Regarding long-term anticoagulation, [id number] score 4 (age, gender, HTN, CHF history), H&H remains stable. Discussed with primary and nephrology, rec initiate Coumadin with target INR 2.0-3.0-- will need referral to [facility] in [place]. Monitor H&H closely. (3) Cardiomyopathy Current Visit: Yes Status: Acute Per cardiology: Cardiomyopathy in setting of severe illness-- initial echo 30-35%. Most recent echo with improvement of LVEF 45-50%. On BB. Relatively euvolemic on exam, according to records patient's net -864ml. Mild enzyme elevation likely related to DEAN-- peak trop 0.24. Patient remains chest pain-free. Regarding further ischemic eval, patient discussed in detail with Dr. Radha Vidal , primary service, and nephrology. I had a lengthy discussion with patient and family. All agreeable for no further ischemic evaluation during current hospital stay (clinically stable) and will reevaluate in outpatient setting potential need for further ischemic evaluation in terms of potential stress testing or left heart catheterization based on clinical recovery and DEAN recovery. Patient back on aspirin and platelets appear to be stable. Again, H&H downtrend, but stable. Currently off statin due to elevated LFTs-- consider adding statin prior to dc. Will s/o, re-consult PRN, f/u scheduled. Qualifiers: Cardiomyopathy type: other Qualified Code(s): I42.8 - Other cardiomyopathies Discussion w patient/family: The assessment and plan as outlined above was discussed with the patient and/or family members who expressed understanding and agreement. All questions were answered. Thank you for involving us in the care of your patient. Please call with any questions. Subjective Principal diagnosis: Decreased EF, CMP, PAF Interval history: Patient denies any new concerns or complaints overnight. Denies any CP, SOB, Palps. Agreeable to [facility] if clinically warranted. Objective Vital Signs, Last 4 Hours Temp Resp BP 05/08/17 09:35 97.8 F 16 143/78 General: Conversant HEENT: Atraumatic, Normocephaly Cardiac: Reg Rate and Rhythm, Normal S1 and S2, No Murmur Lungs: Other (Diminished throughout) Neuro: Alert and responsive, No focal deficits noted Abdomen: Other (obese) Extremities: No Edema Results 05/08/17 05:44 05/08/17 05:44 Lab Results Laboratory Tests 05/07/17 05/07/17 05/08/17 Unknown Unknown 05:44 Hgb 8.4 L 8.6 L Hct 26.5 L 27.2 L Creatinine 3.65 H 05/08/17 05:44 Hgb Hct Creatinine 5.02 H Active Medications Acetaminophen (Tylenol) 650 mg PO Q6HR PRN PRN Reason: Fever Stop: 11/01/17 17:32 Last Admin: 05/02/17 18:05 Dose: 650 mg Acetylcysteine (Acetylcysteine 20%) 600 mg PO BID JENNA Stop: 05/09/17 09:01 Last Admin: 05/08/17 09:54 Dose: 600 mg Aspirin (Aspirin Ec) 81 mg PO DAILY JENNA Stop: 11/07/17 09:01 Last Admin: 05/08/17 09:44 Dose: 81 mg Citalopram Hydrobromide (Celexa) 20 mg PO DAILY JENNA Stop: 11/02/17 21:31 Last Admin: 05/08/17 09:44 Dose: 20 mg Dextrose/Water (Dextrose 50% (Syg)) 25 ml IVP AD PRN PRN Reason: Hypoglycemia Stop: 10/29/17 19:52 Fluticasone Propionate (Flonase) 50 mcg NS DAILY PRN; Protocol PRN Reason: Allergy Symptoms Stop: 10/29/17 07:02 Glucagon (Glucagen) 1 mg IM ONCE PRN PRN Reason: Hypoglycemia Stop: 10/29/17 19:52 Glucose (Gluctose) 15 gm PO ONCE PRN PRN Reason: Hypoglycemia Stop: 10/29/17 19:52 Glucose (Gluctose) 30 gm PO ONCE PRN PRN Reason: Hypoglycemia Stop: 10/29/17 19:52 Heparin Sodium (Porcine) (Heparin) 5,000 unit SQ Q8HCO [facility] Stop: 10/30/17 14:01 Last Admin: 05/08/17 05:32 Dose: 5,000 unit Heparin Sodium (Porcine) (Heparin) 0 unit IV ONCE PRN PRN Reason: Hemodialysis Catheter Packing Dextrose (Dextrose 5%) 1,000 mls @ 100 mls/hr IVC .Q10H PRN PRN Reason: HYPOGLYCEMIA Stop: 11/01/17 17:46 Sodium Chloride (0.9 % Sodium Chloride) 1,000 mls @ 0 mls/hr PRIME .Q0M JENNA PRN Reason: As Directed Stop: 11/03/17 10:16 Piperacillin Sod/Tazobactam (Sod 3.375 gm/ Dextrose) 100 mls @ 25 mls/hr IVPB Q12HR [facility] Stop: 11/04/17 18:01 Last Admin: 05/08/17 05:32 Dose: 25 mls/hr Sodium Chloride (0.9 % Sodium Chloride) 250 mls @ 937.5 mls/hr IVC .Q16M PRN PRN Reason: Hypotension Stop: 11/07/17 07:17 Metoprolol Succinate (Toprol Xl) 12.5 mg PO BID [facility] Stop: 11/06/17 21:01 Last Admin: 05/08/17 09:44 Dose: 12.5 mg Nystatin (Mycostatin Cream) 1 appl TP BID [facility] Stop: 11/07/17 09:01 Last Admin: 05/08/17 09:44 Dose: Not Given Omeprazole (Prilosec) 40 mg PO DAILY@0730 [facility] PRN Reason: Protocol Stop: 11/04/17 07:31 Last Admin: 05/08/17 09:43 Dose: 40 mg Ondansetron HCl (Zofran) 4 mg IVP Q6HR PRN; Protocol PRN Reason: Nausea Stop: 10/28/17 14:15 Last Admin: 05/05/17 20:09 Dose: 4 mg Oxycodone HCl (Roxicodone) 7.5 mg PO Q4HR PRN PRN Reason: Pain Stop: 11/03/17 14:28 Last Admin: 05/07/17 21:28 Dose: 7.5 mg Senna (Senna) 8.8 mg PO DAILY [facility] Stop: 10/31/17 11:01 Last Admin: 05/08/17 09:44 Dose: 8.8 mg Trazodone HCl (Trazodone) 100 mg PO HS JENNA Stop: 11/02/17 21:31 Last Admin: 05/07/17 21:35 Dose: 100 mg Warfarin Sodium (Coumadin Perpt) 1 each PO DAILY@1800 PRN PRN Reason: SEE COMMENTS Stop: 11/07/17 18:01 - Imaging and Cardiology Echo: report reviewed - EKG Interpretation EKG results cardiology: other (Tele shows HR avg past 24 hrs 73, SR, no significant events noted) - VTE Documentation of Mechanical Device: Intermittent pneumatic compression device Consult Discharge Plan - Plan Referrals: Barron Carbajal DO [Non-Partnered Physician] - 05/26/17 1:30 pm (Please call the office upon discharge for a sooner appointments..)
--- NOTE | 2017-05-08 13:15 | Internal Med Progress Note ---
<Susan Pagan - Last Filed: 05/08/17 16:58> Date of Encounter: 05/08/17 Time of Encounter: 13:12 - Assessment and plan (1) DEAN (acute kidney injury) Current Visit: Yes Status: Acute Assessment and plan: Cr elevated from yesterday. Will continue to monitor with BMP closely. (2) CHF (congestive heart failure) Current Visit: Yes Status: Chronic Assessment and plan: No acute events overnight. EF was decreased on admission, with estimated EF 35%, and limited repeat study demonstrating LVEF 40-45% Cardio on consult, appreciate recs Plan: Per Dr. Branham, recs for [facility] outpatient following stabilization of kidney function Continue BB therapy. See cardio consult note for additional details. Qualifiers: Congestive heart failure type: systolic Congestive heart failure chronicity : acute on chronic Qualified Code(s): I50.23 - Acute on chronic systolic ( congestive) heart failure (3) Atrial fibrillation with RVR Current Visit: Yes Status: Acute Assessment and plan: See above. Now controlled. Cardio on consul, appreciate recs Plan: -CHADVASC score 4 (age, gender, HTN, CHF history). Recommend care home anticoagulation with coumadin. Per cardio, decision to commence coumadin today Coumadin initation per pharmacy this afternoon (4) Transaminitis Current Visit: Yes Status: Acute Assessment and plan: Transaminitis, Likely 2/2 to hypotension in setting of septic shock GI on consult and recommended monitoring LFTs. LFts levels increasing, in background of septic shock Hepatitis workup negative. Plans: We will continue to trend LFTs Holding statins (5) Decubitus ulcer Current Visit: No Status: Chronic Assessment and plan: Per nurse note, pt traditionally refuses to be moved for view of ulcer Qualifiers: Pressure ulcer location: back, unspecified location Pressure ulcer stage: unstageable Qualified Code(s): L89.100 - Pressure ulcer of unspecified part of back, unstageable (6) Venous stasis of lower extremity Current Visit: Yes Status: Acute Assessment and plan: L LE hyperpigmentation involving the lower third of the leg. R: bluish-red discoloration on medial side of leg Likely 2/2 to venous stasis due pt's debility and immobilization Continue Leg elevation, exercise, and compression therapy for oxygen transport to the skin and subcutaneous tissues and decrease of edema Compression wrapping therapy initiated, if patient amenable to this (7) Edema Current Visit: No Status: Chronic Qualifiers: Edema type: unspecified Qualified Code(s): R60.9 - Edema, unspecified (8) DVT prophylaxis Current Visit: Yes Status: Acute Assessment and plan: Wells' Score for risk of DVT - minimum 4 ( Bedridden recently >3 days , Collateral (nonvaricose) superficial veins present, Entire leg swollen, immobilization of the lower extremity 2/2 to pt's debility) Pt on Heparin SubQ and plan to continue (9) Septic shock Current Visit: Yes Status: Resolved Assessment and plan: Septic shock in ICU Currently at therapeutic level of vancomycin - Time Spent With Patient Greater than 35 minutes - Subjective Interval history: No acute events overnight. Pt appears to be lying comfortably. Family has discussed with cardiology and nephrology-- plan to postpone consideration of left heart catherization in outpatient, following stabilization of - Constitutional Vitals: Temp Pulse Resp BP Pulse Ox 97.8 F 79 16 151/71 98 05/08/17 09:35 05/08/17 07:22 05/08/17 09:35 05/08/17 12:15 05/08/17 07:22 General appearance: Present: cooperative, pleasant, no acute distress - Head Head exam: Present: atraumatic, normocephalic - Eye Eye exam: Present: PERRL, conjuntiva pink, sclera anicteric Pupils: Present: PERRL - Respiratory Respiratory exam: Present: CTAB. Absent: accessory muscle use, rales, rhonchi, wheezes - Cardiovascular Cardiovascular exam: Present: RRR, +S1, +S2 - GI/Abdominal GI/Abdominal exam: Present: normal bowel sounds, soft, no peritoneal signs. Absent: distended, tenderness - Additional comments: rose cathether in place, draining properly Internal Medicine: Result - Labs CBC & Chem 7: 05/08/17 05:44 05/08/17 05:44 Labs: Short CBC 05/08/17 Range/Units 05:44 WBC 10.0 (4.3-11.1) K/mcL Hgb 8.6 L (11.5-15.4) g/dL Hct 27.2 L (35.3-44.9) % Plt Count 266 (140-400) K/mcL Neutrophils # 7.0 (1.6-8.9) K/mcL BMP 05/08/17 05:44 Sodium 138 Potassium 4.1 Chloride 100 Carbon Dioxide 25 BUN 41 H Creatinine 5.02 H Glucose 92 Calcium 9.1 Liver Function 05/08/17 Range/Units 05:44 Total Bilirubin 1.5 H (0.2-1.2) mg/dL Direct Bilirubin 1.0 H (0.0-0.5) mg/dL AST 85 H (5-34) Units/L ALT 52 (0-55) Units/L Alkaline Phosphatase 220 H (38-126) Units/L Albumin 2.9 L (3.5-5.0) g/dL - ABG Interpretation ABG results: ABG ABG pH 7.37 pH Units (7.32-7.45) 04/30/17 08:31 ABG pCO2 42 mmHg (35-45) 04/30/17 08:31 ABG pO2 65 mmHg (85-104) L 04/30/17 08:31 ABG O2 Saturation 92 % (95-98) L 04/30/17 08:31 PT/INR, D-dimer PT 10.5 Seconds (9.4-12.1) 05/04/17 04:30 - VTE Documentation of Mechanical Device: Intermittent pneumatic compression device Consult Discharge Plan - Plan Referrals: Barron Carbajal DO [Non-Partnered Physician] - 05/26/17 1:30 pm (Please call the office upon discharge for a sooner appointments..) <Bg Tillman - Last Filed: 05/08/17 18:35> Date of Encounter: 05/08/17 - Assessment and plan (1) Atrial flutter Current Visit: Yes Status: Acute Qualifiers: Atrial flutter type: typical Qualified Code(s): I48.3 - Typical atrial flutter (2) ATN (acute tubular necrosis) Current Visit: Yes Status: Acute (3) Hypertension Current Visit: No Status: Chronic Qualifiers: Hypertension type: essential hypertension Qualified Code(s): I10 - Essential (primary) hypertension (4) CHF (congestive heart failure) Current Visit: Yes Status: Chronic Qualifiers: Congestive heart failure type: systolic Congestive heart failure chronicity : acute on chronic Qualified Code(s): I50.23 - Acute on chronic systolic ( congestive) heart failure (5) Atrial fibrillation Current Visit: Yes Status: Acute Qualifiers: Atrial fibrillation type: paroxysmal Qualified Code(s): I48.0 - Paroxysmal atrial fibrillation (6) UTI (urinary tract infection) Current Visit: No Status: Acute Qualifiers: Urinary tract infection type: acute cystitis Hematuria presence: with hematuria Qualified Code(s): N30.01 - Acute cystitis with hematuria (7) Acute respiratory failure with hypoxia and hypercarbia Current Visit: Yes Status: Resolved (8) Cardiomyopathy Current Visit: Yes Status: Acute Qualifiers: Cardiomyopathy type: other Qualified Code(s): I42.8 - Other cardiomyopathies (9) Venous stasis of lower extremity Current Visit: Yes Status: Acute (10) Decubitus ulcer Current Visit: No Status: Chronic Qualifiers: Pressure ulcer location: back, unspecified location Pressure ulcer stage: unstageable Qualified Code(s): L89.100 - Pressure ulcer of unspecified part of back, unstageable (11) Septic shock Current Visit: Yes Status: Resolved - Constitutional Vitals: Temp Pulse Resp BP Pulse Ox 99.7 F H 83 16 124/72 93 05/08/17 17:15 05/08/17 17:15 05/08/17 17:15 05/08/17 17:15 05/08/17 17:15 Internal Medicine: Result - Labs CBC & Chem 7: 05/08/17 05:44 05/08/17 05:44 Labs: Short CBC 05/08/17 Range/Units 05:44 WBC 10.0 (4.3-11.1) K/mcL Hgb 8.6 L (11.5-15.4) g/dL Hct 27.2 L (35.3-44.9) % Plt Count 266 (140-400) K/mcL Neutrophils # 7.0 (1.6-8.9) K/mcL BMP 05/08/17 05:44 Sodium 138 Potassium 4.1 Chloride 100 Carbon Dioxide 25 BUN 41 H Creatinine 5.02 H Glucose 92 Calcium 9.1 Liver Function 05/08/17 Range/Units 05:44 Total Bilirubin 1.5 H (0.2-1.2) mg/dL Direct Bilirubin 1.0 H (0.0-0.5) mg/dL AST 85 H (5-34) Units/L ALT 52 (0-55) Units/L Alkaline Phosphatase 220 H (38-126) Units/L Albumin 2.9 L (3.5-5.0) g/dL - ABG Interpretation ABG results: ABG ABG pH 7.37 pH Units (7.32-7.45) 04/30/17 08:31 ABG pCO2 42 mmHg (35-45) 04/30/17 08:31 ABG pO2 65 mmHg (85-104) L 04/30/17 08:31 ABG O2 Saturation 92 % (95-98) L 04/30/17 08:31 PT/INR, D-dimer PT 10.5 Seconds (9.4-12.1) 05/04/17 04:30 - Attending Attestation I examined this patient and my medical decision-making was reviewed with the Resident Physician on 05/08/17. I agree with the documented findings, disposition and treatment plan as described except to the extent set forth below. Ms. Wei is currently admitted for sepsis and renal failure. She remains moderate to high risk due to potential for worsening clinical status. Ms Wei is feeling OK. No fever or chills. No CP or SOB. There has been a lot of confusion this AM regarding cardiac cath. At this time it has been cancelled and planned for sometime in the future. Awaiting insurance approval for skilled facility and dialysis. Exam Alert. Comfortable Mucus membranes dry Heart reg No wheeze. Lungs diminished Edema present I/P 1. DEAN 2. Atrial flutter - parox Further diagnoses and plan as above.
[2017-05-08] MEDS ORDERED: Warfarin perPT PO PRN (18:00)
[2017-05-08] MEDS: *HR* Warfarin 3 MG TABLET PO SCH (18:17)
[2017-05-08] MEDS: traZODone 50 MG TABLET PO SCH (20:31)
[2017-05-09] MEDS: Piperacillin/Tazobactam 3.375 GM in D5% in Water (Mini-Bag+) 100 ML IVPB SCH ×2 (05:04→17:18)
[2017-05-09 05:12] LABS: Basophils % 0.2 %; Eosinophils # 0.5 K/mcL (0.0-0.6); Eosinophils % 5.1 %; Hemoglobin 8.3 g/dL (11.5-15.4); Immature Granulocytes % 2.2 % (0-4); Lymphocytes # 0.9 K/mcL (0.6-4.6); Lymphocytes % 9.9 %; Mean Corpuscular HGB Conc 31.9 g/dL (31.6-35.5); Mean Corpuscular Hemoglobin 27.8 pg (28.0-33.3); Mean Platelet Volume 10.2 fL (9.4-12.4); Monocytes % 11.8 %; Neutrophils # 6.3 K/mcL (1.6-8.9); Platelet Count 312 K/mcL (140-400); Red Blood Count 2.99 M/mcL (3.82-4.97); Red Cell Distribution Width 17.2 % (11.5-14.5); Segmented Neutrophils % 70.8 %
[2017-05-09 05:13] LABS: Prothrombin Time 10.8 Seconds (9.4-12.1)
[2017-05-09 05:29] LABS: Calcium 9.2 mg/dL (8.6-10.8)
[2017-05-09] MEDS: Aspirin Enteric Coated 81 MG Tablet PO SCH (08:17)
[2017-05-09] MEDS: Metoprolol XL (24 HR) Succ 25 MG TAB.ER.24H PO SCH ×2 (08:17→21:39)
[2017-05-09] MEDS: Nystatin Cream 15 GM TUBE TP SCH ×2 (08:18→21:39)
[2017-05-09] MEDS: *HR* OxyCODONE Immed Rel 5 MG TABLET PO PRN ×2 (09:30→15:26)
[2017-05-09] MEDS: *HR* Acetylcysteine 20% 600 MG/3 ML ORAL SYRINGE PO SCH (09:32)
--- NOTE | 2017-05-09 10:19 | Nephrology Progress Note ---
Date of Encounter: 05/09/17 Time of Encounter: 10:19 - Assessment and Plan (1) DEAN (acute kidney injury) Current Visit: Yes Status: Acute Next HD is planned for Thursday She most likely has ATN and thus far has shown no signs of renal recovery. She has a Permacath and should be arranged for outpt HD for Dialysis dependent DEAN. (2) Cardiomyopathy Current Visit: Yes Status: Chronic As per primary and Cardiology Qualifiers: Cardiomyopathy type: other Qualified Code(s): I42.8 - Other cardiomyopathies (3) ATN (acute tubular necrosis) Current Visit: Yes Status: Acute Most likely etiology for the DEAN from the recent hypotension/shock/sepsis (4) Edema Current Visit: No Status: Chronic Qualifiers: Edema type: unspecified Qualified Code(s): R60.9 - Edema, unspecified (5) Hypertension Current Visit: No Status: Chronic Qualifiers: Hypertension type: essential hypertension Qualified Code(s): I10 - Essential (primary) hypertension Subjective Principal diagnosis: Decreased EF, CMP, PAF Interval history: She was seen/examined earlier today. Her daughter was present. She did not affirm N/V/D or active CP. Objective - Vital Signs Vital signs: Vital Signs Temp Pulse Resp BP Pulse Ox 05/09/17 08:36 96 05/09/17 08:08 98.5 F 74 15 148/93 96 05/09/17 04:39 98.2 F 72 16 136/84 97 05/09/17 01:08 97.9 F 78 16 142/79 94 05/08/17 19:56 98.4 F 90 16 147/84 90 05/08/17 17:15 99.7 F H 83 16 124/72 93 05/08/17 14:15 98 F 18 156/79 05/08/17 14:00 142/73 05/08/17 13:45 114/66 05/08/17 13:30 130/74 05/08/17 13:15 133/64 05/08/17 13:00 113/70 05/08/17 12:45 101/59 05/08/17 12:30 119/60 05/08/17 12:15 151/71 05/08/17 12:00 128/73 05/08/17 11:00 140/73 05/08/17 10:50 122/74 05/08/17 10:35 115/59 05/08/17 10:20 113/65 Intake and Output 05/08/17 05/09/17 05/09/17 23:59 07:59 15:59 Intake Total 100 / 100 0 / 0 160 / 160 Output Total 50 / 50 0 / 0 0 / 0 Balance 50 / 50 0 / 0 160 / 160 Intake: IV Fluids 100 / 100 100 / 100 Zosyn 3.375 GM In 100 / 100 100 / 100 Dextrose 5% (Minibag+) 100 ML 100 ML @ 25 mls/hr IVPB Q12HR [facility] Rx#: [id number] Oral 0 / 0 60 / 60 Output: Urine 0 / 0 0 / 0 Urethral (Haji) 0 / 0 0 / 0 Catheter 50 / 50 Other: Meal Breakfast Percent of Meal Consumed 40% Weight 142.5 kg Patient Weight 05/09/17 23:59 Weight 142.5 kg - General Appearance Exam: General appearance: Present: appears started age, obese, chronically ill, fatigue, frail EENT: Present: ATNC, PERRL, mucous membranes moist Neck: Present: supple Respiratory: Present: clear Cardiology: Present: edema, regular rate, normal S1, normal S2 Dialysis Vascular Access: Venous Catheter (Right TDC with dressing C/D/I) Gastrointestinal: Present: normoactive bowel sounds, no tenderness, no guarding , obese Integumentary: Present: ecchymotic Neurologic: Present: no focal deficit, no asterixis Musculoskeletal: Present: no cyanosis, no clubbing Psychiatric: Present: mood/affect appropriate, cooperative - Lab 05/11/17 05:52 05/11/17 05:52 Most recent lab results ABG pH 7.37 pH Units (7.32-7.45) 04/30/17 08:31 ABG pCO2 42 mmHg (35-45) 04/30/17 08:31 ABG pO2 65 mmHg (85-104) L 04/30/17 08:31 ABG HCO3 24.3 mEQ/L (21-27) 04/30/17 08:31 ABG O2 Saturation 92 % (95-98) L 04/30/17 08:31 Calcium 9.2 mg/dL (8.6-10.8) 05/09/17 04:55 Phosphorus 4.2 mg/dL (2.3-4.7) 05/04/17 04:30 Magnesium 2.6 mg/dL (1.6-2.6) 05/04/17 04:30 Urine Creatinine 57 mg/dL 04/29/17 23:05 Urine Sodium 88.0 mEq/L 04/29/17 23:05 - VTE Documentation of Mechanical Device: Venous foot pump, device Consult Discharge Plan - Plan Additional Instructions: Please have an INR drawn in 2 days for your coumadin therapy at [facility]. Please follow up with your PCP as scheduled Please follow up with your graphic art sales representative as scheduled Please follow up with Dr. Mcqueen's group at [place] Please continue to take your metoprolol Please return to the hospital on acute new onset of fever, abdominal pain, pain with urination, extreme fatigue, blood in urine, shortness of breath, chest pain or new symptoms. Referrals: Barron Carbajal, [Non-Partnered Physician] - 05/26/17 1:30 pm (Please call the office upon discharge for a sooner appointments..) Prescriptions: Metoprolol XL (24 HR) Succ [Toprol Xl] 12.5 mg PO BID #60 Warfarin [Coumadin] 5 mg PO DAILY@1800 #30 tab
[2017-05-09] MEDS: *HR* Warfarin 3 MG TABLET PO SCH (17:18)
--- NOTE | 2017-05-09 18:14 | Internal Med Progress Note ---
Date of Encounter: 05/09/17 Time of Encounter: 10:30 - Assessment and plan (1) Atrial flutter Current Visit: Yes Status: Acute Assessment and plan: Has not recurred at this time. Continue current rate control medications. Qualifiers: Atrial flutter type: typical Qualified Code(s): I48.3 - Typical atrial flutter (2) ATN (acute tubular necrosis) Current Visit: Yes Status: Acute Assessment and plan: Anticipate dialysis on Thursday. (3) Hypertension Current Visit: No Status: Chronic Assessment and plan: Controlled at this time. Continue meds. Qualifiers: Hypertension type: essential hypertension Qualified Code(s): I10 - Essential (primary) hypertension (4) CHF (congestive heart failure) Current Visit: Yes Status: Chronic Assessment and plan: Symptoms appear to be somewhat better at this time. Continue management as is for now. Qualifiers: Congestive heart failure type: systolic Congestive heart failure chronicity : acute on chronic Qualified Code(s): I50.23 - Acute on chronic systolic ( congestive) heart failure (5) Atrial fibrillation Current Visit: Yes Status: Chronic Assessment and plan: No recurrence in last 2 days. Qualifiers: Atrial fibrillation type: paroxysmal Qualified Code(s): I48.0 - Paroxysmal atrial fibrillation (6) UTI (urinary tract infection) Current Visit: No Status: Acute Assessment and plan: Culture negative but suspicion for urinary tract infection. Patient responded well to antibiotics, continue for total of 14 days given the patient's critical illness. Qualifiers: Urinary tract infection type: acute cystitis Hematuria presence: with hematuria Qualified Code(s): N30.01 - Acute cystitis with hematuria (7) Cardiomyopathy Current Visit: Yes Status: Chronic Qualifiers: Cardiomyopathy type: other Qualified Code(s): I42.8 - Other cardiomyopathies (8) Venous stasis of lower extremity Current Visit: Yes Status: Chronic Assessment and plan: Continuing to encourage compression and elevation. (9) Decubitus ulcer Current Visit: No Status: Chronic Assessment and plan: Per nurse note, pt continues to refuse to be moved or turned. Qualifiers: Pressure ulcer location: sacral region Pressure ulcer stage: unstageable Qualified Code(s): L89.150 - Pressure ulcer of sacral region, unstageable - Subjective Interval history: Ms. Wei is currently admitted for sepsis resulting in renal failure. She remains moderate to high risk due to potential for worsening renal and cardiac status. has no complaints at this time. She slept OK. No CP or SOB. No fever or chills. No further episodes of atrial fib or flutter. Awaiting transfer to SNF on Thursday. - Constitutional Vitals: Temp Pulse Resp BP Pulse Ox 98.3 F 74 15 137/85 99 05/09/17 17:04 05/09/17 17:04 05/09/17 17:04 05/09/17 17:04 05/09/17 17:04 General appearance: Present: cooperative, pleasant, answers questions appropriately - Head Head exam: Present: normocephalic - Eye Eye exam: Present: conjuntiva pink - ENT ENT exam: Present: mucous membranes dry - Respiratory Respiratory exam: Present: decreased breath sounds, CTAB - Cardiovascular Cardiovascular exam: Present: RRR. Absent: tachycardia - GI/Abdominal GI/Abdominal exam: Present: normal bowel sounds, soft. Absent: tenderness - Extremities Exam Extremities exam: Present: warm Additional comments: Edema and venous stasis present. - Neurological Exam Neurological exam: Present: alert, oriented X3 - Skin Skin exam: Present: warm Internal Medicine: Result - Labs CBC & Chem 7: 05/09/17 04:55 05/09/17 04:55 Labs: Short CBC 05/09/17 Range/Units 04:55 WBC 8.8 (4.3-11.1) K/mcL Hgb 8.3 L (11.5-15.4) g/dL Hct 26.0 L (35.3-44.9) % Plt Count 312 (140-400) K/mcL Neutrophils # 6.3 (1.6-8.9) K/mcL BMP 05/09/17 04:55 Sodium 140 Potassium 4.0 Chloride 100 Carbon Dioxide 28 BUN 28 H D Creatinine 4.02 H Glucose 96 Calcium 9.2 - ABG Interpretation ABG results: ABG ABG pH 7.37 pH Units (7.32-7.45) 04/30/17 08:31 ABG pCO2 42 mmHg (35-45) 04/30/17 08:31 ABG pO2 65 mmHg (85-104) L 04/30/17 08:31 ABG O2 Saturation 92 % (95-98) L 04/30/17 08:31 PT/INR, D-dimer PT 10.8 Seconds (9.4-12.1) 05/09/17 04:55 - VTE Documentation of Mechanical Device: Venous foot pump, device Consult Discharge Plan - Plan Referrals: Barron Carbajal DO [Non-Partnered Physician] - 05/26/17 1:30 pm (Please call the office upon discharge for a sooner appointments..)
[2017-05-09] MEDS: traZODone 50 MG TABLET PO SCH (21:38)
[2017-05-10] MEDS: *HR* OxyCODONE Immed Rel 5 MG TABLET PO PRN ×2 (03:29→15:02)
[2017-05-10 04:50] LABS: Prothrombin Time 10.4 Seconds (9.4-12.1)
[2017-05-10 04:55] LABS: Calcium 9.6 mg/dL (8.6-10.8)
[2017-05-10] MEDS: Piperacillin/Tazobactam 3.375 GM in D5% in Water (Mini-Bag+) 100 ML IVPB SCH ×2 (05:30→17:41)
[2017-05-10] MEDS: Aspirin Enteric Coated 81 MG Tablet PO SCH (08:22)
[2017-05-10] MEDS: Metoprolol XL (24 HR) Succ 25 MG TAB.ER.24H PO SCH ×2 (08:22→21:29)
[2017-05-10] MEDS: Nystatin Cream 15 GM TUBE TP SCH ×2 (08:24→21:34)
--- NOTE | 2017-05-10 14:48 | Internal Med Progress Note ---
Date of Encounter: 05/10/17 Time of Encounter: 10:00 - Assessment and plan (1) Atrial flutter Current Visit: Yes Status: Acute Assessment and plan: Remains in NSR on current medication regimen. Qualifiers: Atrial flutter type: typical Qualified Code(s): I48.3 - Typical atrial flutter (2) ATN (acute tubular necrosis) Current Visit: Yes Status: Acute Assessment and plan: Anticipate dialysis on Thursday. (3) Hypertension Current Visit: No Status: Chronic Assessment and plan: Essentially controlled. Continue current meds. Qualifiers: Hypertension type: essential hypertension Qualified Code(s): I10 - Essential (primary) hypertension (4) CHF (congestive heart failure) Current Visit: Yes Status: Chronic Assessment and plan: No new symptoms or issues. Continue as is for now. Qualifiers: Congestive heart failure type: systolic Congestive heart failure chronicity : acute on chronic Qualified Code(s): I50.23 - Acute on chronic systolic ( congestive) heart failure (5) Atrial fibrillation Current Visit: Yes Status: Chronic Assessment and plan: No recurrence at this point. Qualifiers: Atrial fibrillation type: paroxysmal Qualified Code(s): I48.0 - Paroxysmal atrial fibrillation (6) UTI (urinary tract infection) Current Visit: No Status: Acute Assessment and plan: Continue abx through . Pt currently has a rose catheter. She does make some urine at this point and may be increasing. Will maintain rose today to [facility] I/Os closely in light of renal failure/ATN. Qualifiers: Urinary tract infection type: acute cystitis Hematuria presence: with hematuria Qualified Code(s): N30.01 - Acute cystitis with hematuria (7) Cardiomyopathy Current Visit: Yes Status: Chronic Assessment and plan: Chronic issue. Qualifiers: Cardiomyopathy type: other Qualified Code(s): I42.8 - Other cardiomyopathies (8) Venous stasis of lower extremity Current Visit: Yes Status: Chronic Assessment and plan: Continuing to encourage compression and elevation. (9) Decubitus ulcer Current Visit: No Status: Chronic Assessment and plan: Per nurse note, pt continues to refuse to be moved or turned. Qualifiers: Pressure ulcer location: sacral region Pressure ulcer stage: unstageable Qualified Code(s): L89.150 - Pressure ulcer of sacral region, unstageable - Subjective Interval history: Ms. Wei is currently admitted for sepsis resulting in renal failure. She remains moderate to high risk due to potential for worsening renal and cardiac status. is complaining of wrinkled sheets under her behind. No CP or SOB. No fever or chills. No acute issues last night. To have dialysis tomorrow. Awaiting insurance for planned discharge on Thursday. - Constitutional Vitals: Temp Pulse Resp BP Pulse Ox 98.4 F 70 18 138/84 99 05/10/17 11:08 05/10/17 11:08 05/10/17 11:08 05/10/17 11:08 05/10/17 11:08 General appearance: Present: cooperative, pleasant, answers questions appropriately - Head Head exam: Present: normocephalic - Eye Eye exam: Present: EOMI, conjuntiva pink - ENT ENT exam: Present: mucous membranes moist - Respiratory Respiratory exam: Present: decreased breath sounds. Absent: rales, wheezes - Cardiovascular Cardiovascular exam: Present: RRR. Absent: tachycardia - GI/Abdominal GI/Abdominal exam: Present: normal bowel sounds, soft. Absent: tenderness - Extremities Exam Extremities exam: Present: warm Additional comments: Edema and venous stasis lower extremities. - Neurological Exam Neurological exam: Present: alert, oriented X3 - Skin Skin exam: Present: warm. Absent: rash Internal Medicine: Result - Labs CBC & Chem 7: 05/09/17 04:55 05/10/17 03:27 Labs: BMP 05/10/17 03:27 Sodium 138 Potassium 4.0 Chloride 99 Carbon Dioxide 24 BUN 35 H Creatinine 5.09 H Glucose 90 Calcium 9.6 - ABG Interpretation ABG results: ABG ABG pH 7.37 pH Units (7.32-7.45) 04/30/17 08:31 ABG pCO2 42 mmHg (35-45) 04/30/17 08:31 ABG pO2 65 mmHg (85-104) L 04/30/17 08:31 ABG O2 Saturation 92 % (95-98) L 04/30/17 08:31 PT/INR, D-dimer PT 10.4 Seconds (9.4-12.1) 05/10/17 03:27 - VTE Documentation of Mechanical Device: Venous foot pump, device Consult Discharge Plan - Plan Referrals: Barron Carbajal DO [Non-Partnered Physician] - 05/26/17 1:30 pm (Please call the office upon discharge for a sooner appointments..)
[2017-05-10] MEDS ORDERED: *HR* Warfarin 5 MG TABLET PO ONE (18:00)
[2017-05-10] MEDS: traZODone 50 MG TABLET PO SCH (21:29)
[2017-05-11] MEDS: Piperacillin/Tazobactam 3.375 GM in D5% in Water (Mini-Bag+) 100 ML IVPB SCH ×2 (05:43→18:14)
[2017-05-11 06:35] LABS: Hematocrit 25.4 % (35.3-44.9); INR 1.2; Mean Corpuscular HGB Conc 31.5 g/dL (31.6-35.5); Mean Corpuscular Hemoglobin 27.9 pg (28.0-33.3); Mean Corpuscular Volume 88.5 fL (83.0-100.0); Mean Platelet Volume 10.6 fL (9.4-12.4); Platelet Count 372 K/mcL (140-400); Prothrombin Time 12.6 Seconds (9.4-12.1); Red Blood Count 2.87 M/mcL (3.82-4.97); Red Cell Distribution Width 17.2 % (11.5-14.5)
[2017-05-11 06:36] LABS: Calcium 9.6 mg/dL (8.6-10.8); Potassium 4.3 mEq/L (3.5-4.5)
[2017-05-11] MEDS ORDERED: 0.9 % Sodium Chloride 250 ML IVC PRN (06:52)
[2017-05-11] MEDS: Aspirin Enteric Coated 81 MG Tablet PO SCH (08:41)
[2017-05-11] MEDS: Metoprolol XL (24 HR) Succ 25 MG TAB.ER.24H PO SCH ×2 (08:41→21:37)
[2017-05-11] MEDS: Nystatin Cream 15 GM TUBE TP SCH ×2 (08:42→22:21)
[2017-05-11] MEDS: *HR* OxyCODONE Immed Rel 5 MG TABLET PO PRN ×2 (09:48→14:53)
[2017-05-11] MEDS ORDERED: *HR* Heparin 10,000 UNIT/10 ML VIAL IV PRN (09:49)
--- NOTE | 2017-05-11 11:16 | Nephrology Progress Note ---
Date of Encounter: 05/11/17 Time of Encounter: 11:15 - Assessment and Plan (1) DEAN (acute kidney injury) Current Visit: Yes Status: Acute HD today. The pt's daughter reported that she may discharge to [facility], which has a dialysis unit that only has Dr. Mcqueen's group rounding at that facility. She most likely has ATN and thus far has shown no signs of renal recovery. She now has a Permacath and should be arranged for outpt HD for Dialysis dependent DEAN. (2) Cardiomyopathy Current Visit: Yes Status: Chronic As per primary and Cardiology Qualifiers: Cardiomyopathy type: other Qualified Code(s): I42.8 - Other cardiomyopathies (3) ATN (acute tubular necrosis) Current Visit: Yes Status: Acute Most likely etiology for the DEAN from the recent hypotension/shock/sepsis (4) Edema Current Visit: No Status: Chronic Qualifiers: Edema type: unspecified Qualified Code(s): R60.9 - Edema, unspecified (5) Hypertension Current Visit: No Status: Chronic Hx of, Qualifiers: Hypertension type: essential hypertension Qualified Code(s): I10 - Essential (primary) hypertension Subjective Principal diagnosis: Decreased EF, CMP, PAF Interval history: She was seen/examined earlier today. She did not affirm N/V/D or new major complaints. Objective - Vital Signs Vital signs: Vital Signs Temp Pulse Resp BP Pulse Ox 05/11/17 06:52 98.3 F 75 15 150/84 99 05/11/17 03:54 98.0 F 98 16 142/83 100 05/10/17 23:54 97.7 F 70 151/84 97 05/10/17 19:31 97.9 F 90 16 126/81 97 05/10/17 16:34 98.5 F 74 18 137/85 97 Intake and Output 05/10/17 05/11/17 05/11/17 23:59 07:59 15:59 Intake Total 100 / 100 0 / 0 Output Total 0 / 0 0 / 0 Balance 100 / 100 0 / 0 Intake: IV Fluids 100 / 100 Zosyn 3.375 GM In 100 / 100 Dextrose 5% (Minibag+) 100 ML 100 ML @ 25 mls/hr IVPB Q12HR [facility] Rx#: [id number] Oral 0 / 0 Output: Urine 0 / 0 0 / 0 Urethral (Haji) 0 / 0 Other: Weight 144.4 kg Patient Weight 05/11/17 23:59 Weight 144.4 kg - General Appearance Exam: General appearance: Present: appears started age, obese, chronically ill, fatigue, frail EENT: Present: ATNC, PERRL, mucous membranes moist Neck: Present: supple Respiratory: Present: clear Cardiology: Present:edema of LE, regular rate, normal S1, normal S2 Dialysis Vascular Access: Venous Catheter (Right TDC with dressing C/D/I) Gastrointestinal: Present: normoactive bowel sounds, no tenderness, no guarding , obese Integumentary: Present: ecchymotic Neurologic: Present: no focal deficit, no asterixis Musculoskeletal: Present: no cyanosis, no clubbing Psychiatric: Present: mood/affect appropriate, cooperative - Lab 05/11/17 05:52 05/11/17 05:52 Most recent lab results ABG pH 7.37 pH Units (7.32-7.45) 04/30/17 08:31 ABG pCO2 42 mmHg (35-45) 04/30/17 08:31 ABG pO2 65 mmHg (85-104) L 04/30/17 08:31 ABG HCO3 24.3 mEQ/L (21-27) 04/30/17 08:31 ABG O2 Saturation 92 % (95-98) L 04/30/17 08:31 Calcium 9.6 mg/dL (8.6-10.8) 05/11/17 05:52 Phosphorus 4.2 mg/dL (2.3-4.7) 05/04/17 04:30 Magnesium 2.6 mg/dL (1.6-2.6) 05/04/17 04:30 Urine Creatinine 57 mg/dL 04/29/17 23:05 Urine Sodium 88.0 mEq/L 04/29/17 23:05 - VTE Documentation of Mechanical Device: Venous foot pump, device Consult Discharge Plan - Plan Additional Instructions: Please have an INR drawn in 2 days for your coumadin therapy at [facility]. Please follow up with your PCP as scheduled Please follow up with your petrographer as scheduled Please follow up with Dr. Mcqueen's group at [place] Please continue to take your metoprolol Please return to the hospital on acute new onset of fever, abdominal pain, pain with urination, extreme fatigue, blood in urine, shortness of breath, chest pain or new symptoms. Referrals: Barron Carbajal DO [Non-Partnered Physician] - 05/26/17 1:30 pm (Please call the office upon discharge for a sooner appointments..) Prescriptions: Metoprolol XL (24 HR) Succ [Toprol Xl] 12.5 mg PO BID #60 Warfarin [Coumadin] 5 mg PO DAILY@1800 #30 tab
--- NOTE | 2017-05-11 13:11 | Internal Med Progress Note ---
<Susan Pagan - Last Filed: 05/11/17 14:05> Date of Encounter: 05/11/17 Time of Encounter: 09:09 (approx.) - Assessment and plan (1) DEAN (acute kidney injury) Current Visit: Yes Status: Acute Assessment and plan: Pt to receive dialysis this afternoon. (2) CHF (congestive heart failure) Current Visit: Yes Status: Chronic Assessment and plan: No new symptoms or issues. Continue as is for now. Qualifiers: Congestive heart failure type: systolic Congestive heart failure chronicity : acute on chronic Qualified Code(s): I50.23 - Acute on chronic systolic ( congestive) heart failure (3) Atrial fibrillation with RVR Current Visit: Yes Status: Acute Assessment and plan: Cardio on consult. Plan: -CHADVASC score 4 (age, gender, HTN, CHF history). Recommend custodial anticoagulation with coumadin. Coumadin initation per pharmacy INR 1.2 (4) Transaminitis Current Visit: Yes Status: Acute Assessment and plan: Transaminitis, Likely 2/2 to hypotension in setting of septic shock Holding statins (5) Decubitus ulcer Current Visit: No Status: Chronic Assessment and plan: Per nurse note, pt continues to refuse to be moved or turned. Qualifiers: Pressure ulcer location: sacral region Pressure ulcer stage: unstageable Qualified Code(s): L89.150 - Pressure ulcer of sacral region, unstageable (6) Venous stasis of lower extremity Current Visit: Yes Status: Chronic Assessment and plan: Continuing to encourage compression and elevation. Encouraged compression this AM, but pt politely refused. (7) Edema Current Visit: No Status: Chronic Qualifiers: Edema type: unspecified Qualified Code(s): R60.9 - Edema, unspecified (8) DVT prophylaxis Current Visit: Yes Status: Acute Assessment and plan: Wells' Score for risk of DVT - minimum 4 ( Bedridden recently >3 days , Collateral (nonvaricose) superficial veins present, Entire leg swollen, immobilization of the lower extremity 2/2 to pt's debility) Pt on coumadin (9) Septic shock Current Visit: Yes Status: Resolved Assessment and plan: Hx of Septic shock in ICU Pt on piperacillin/tazobactam. Plan to d/c tomorrow. - Time Spent With Patient Greater than 35 minutes - Subjective Interval history: No acute events overnight. No SOB. States she feels comfortable after RN moved her this morning. I asked regarding compression devices or compression therapy, pt politely refused. - Constitutional Vitals: Temp Pulse Resp BP Pulse Ox 98.5 F 75 18 108/60 99 05/11/17 10:30 05/11/17 06:52 05/11/17 10:30 05/11/17 12:00 05/11/17 06:52 General appearance: Present: cooperative, A&O X 3, pleasant, answers questions appropriately - Head Head exam: Present: atraumatic, normocephalic - Respiratory Respiratory exam: Present: CTAB. Absent: accessory muscle use, rales, rhonchi, wheezes - Cardiovascular Cardiovascular exam: Present: +S1, +S2. Absent: gallop, rubs, systolic murmur, tachycardia - GI/Abdominal GI/Abdominal exam: Present: normal bowel sounds, soft, no peritoneal signs. Absent: distended, tenderness Additional comments: Mild redness on skin folds. - Additional comments: Haji in place. Draining. - Expanded Lower Extremities Exam Hip exam: Present: abrasion Lower Leg exam: Present: ecchymosis (No tenderness this AM B/L on palpation. Venous stasis, b/l more evident on L LE. ) Internal Medicine: Result - Labs CBC & Chem 7: 05/11/17 05:52 05/11/17 05:52 Labs: Short CBC 05/11/17 Range/Units 05:52 WBC 8.5 (4.3-11.1) K/mcL Hgb 8.0 L (11.5-15.4) g/dL Hct 25.4 L (35.3-44.9) % Plt Count 372 (140-400) K/mcL BMP 05/11/17 05:52 Sodium 138 Potassium 4.3 Chloride 99 Carbon Dioxide 25 BUN 43 H Creatinine 6.44 H Glucose 90 Calcium 9.6 - ABG Interpretation ABG results: ABG ABG pH 7.37 pH Units (7.32-7.45) 04/30/17 08:31 ABG pCO2 42 mmHg (35-45) 04/30/17 08:31 ABG pO2 65 mmHg (85-104) L 04/30/17 08:31 ABG O2 Saturation 92 % (95-98) L 04/30/17 08:31 PT/INR, D-dimer PT 12.6 Seconds (9.4-12.1) H 05/11/17 05:52 - VTE Documentation of Mechanical Device: Venous foot pump, device Consult Discharge Plan - Plan Referrals: Barron Carbajal DO [Non-Partnered Physician] - 05/26/17 1:30 pm (Please call the office upon discharge for a sooner appointments..) <Bg Tillman - Last Filed: 05/11/17 15:02> Date of Encounter: 05/11/17 - Assessment and plan (1) UTI (urinary tract infection) Current Visit: No Status: Acute Qualifiers: Urinary tract infection type: acute cystitis Hematuria presence: with hematuria Qualified Code(s): N30.01 - Acute cystitis with hematuria (2) ATN (acute tubular necrosis) Current Visit: Yes Status: Acute (3) CHF (congestive heart failure) Current Visit: Yes Status: Chronic Qualifiers: Congestive heart failure type: systolic Congestive heart failure chronicity : acute on chronic Qualified Code(s): I50.23 - Acute on chronic systolic ( congestive) heart failure (4) Atrial flutter Current Visit: Yes Status: Acute Qualifiers: Atrial flutter type: typical Qualified Code(s): I48.3 - Typical atrial flutter (5) Atrial fibrillation Current Visit: Yes Status: Chronic Qualifiers: Atrial fibrillation type: paroxysmal Qualified Code(s): I48.0 - Paroxysmal atrial fibrillation (6) Hypertension Current Visit: No Status: Chronic Qualifiers: Hypertension type: essential hypertension Qualified Code(s): I10 - Essential (primary) hypertension (7) Cardiomyopathy Current Visit: Yes Status: Chronic Qualifiers: Cardiomyopathy type: other Qualified Code(s): I42.8 - Other cardiomyopathies (8) Venous stasis of lower extremity Current Visit: Yes Status: Chronic (9) Decubitus ulcer Current Visit: No Status: Chronic Qualifiers: Pressure ulcer location: sacral region Pressure ulcer stage: unstageable Qualified Code(s): L89.150 - Pressure ulcer of sacral region, unstageable - Constitutional Vitals: Temp Pulse Resp BP Pulse Ox 98.5 F 75 18 127/67 99 05/11/17 10:30 05/11/17 06:52 05/11/17 10:30 05/11/17 14:00 05/11/17 06:52 Internal Medicine: Result - Labs CBC & Chem 7: 05/11/17 05:52 05/11/17 05:52 Labs: Short CBC 05/11/17 Range/Units 05:52 WBC 8.5 (4.3-11.1) K/mcL Hgb 8.0 L (11.5-15.4) g/dL Hct 25.4 L (35.3-44.9) % Plt Count 372 (140-400) K/mcL BMP 05/11/17 05:52 Sodium 138 Potassium 4.3 Chloride 99 Carbon Dioxide 25 BUN 43 H Creatinine 6.44 H Glucose 90 Calcium 9.6 - ABG Interpretation ABG results: ABG ABG pH 7.37 pH Units (7.32-7.45) 04/30/17 08:31 ABG pCO2 42 mmHg (35-45) 04/30/17 08:31 ABG pO2 65 mmHg (85-104) L 04/30/17 08:31 ABG O2 Saturation 92 % (95-98) L 04/30/17 08:31 PT/INR, D-dimer PT 12.6 Seconds (9.4-12.1) H 05/11/17 05:52 - Attending Attestation I examined this patient and my medical decision-making was reviewed with the Resident Physician on 05/11/17. I agree with the documented findings, disposition and treatment plan as described except to the extent set forth below. Ms. Wei is admitted for sepsis and subsequent ATN now on dialysis. She remains moderate to high risk due to potential for worsening renal and resp status. Ms. Wei feels OK. No CP or SOB. ? if more urine output. No fever or chills. Going to dialysis today. Waiting for discharge to SNF hopefully tomorrow. Exam Alert. Comfortable Mucus membranes dry Heart reg now Lungs diminished Abd soft Edema present I/P 1. Sepsis resolved. Abx through tomorrow 2. ATN on dialysis Further diagnoses and plan as above.
[2017-05-11] MEDS ORDERED: 0.9 % Sodium Chloride 1,000 ML ONE (13:28)
[2017-05-11] MEDS: *HR* Warfarin 5 MG TABLET PO SCH (18:14)
[2017-05-11] MEDS: traZODone 50 MG TABLET PO SCH (21:38)
[2017-05-12 04:18] LABS: INR 1.4
[2017-05-12] MEDS: Piperacillin/Tazobactam 3.375 GM in D5% in Water (Mini-Bag+) 100 ML IVPB SCH ×2 (05:26→17:38)
--- NOTE | 2017-05-12 07:54 | Electrocardiograph Report ---
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
[2017-05-12] MEDS: Nystatin Cream 15 GM TUBE TP SCH ×2 (08:23→22:29)
[2017-05-12] MEDS: Metoprolol XL (24 HR) Succ 25 MG TAB.ER.24H PO SCH ×2 (08:23→22:25)
[2017-05-12] MEDS: Aspirin Enteric Coated 81 MG Tablet PO SCH (08:24)
[2017-05-12] MEDS: *HR* OxyCODONE Immed Rel 5 MG TABLET PO PRN ×2 (08:42→15:25)
--- NOTE | 2017-05-12 09:54 | Nephrology Progress Note ---
Date of Encounter: 05/12/17 Time of Encounter: 09:52 - Assessment and Plan (1) DEAN (acute kidney injury) Current Visit: Yes Status: Acute The january discharge to [facility], which has a dialysis unit that only has Dr. Mcqueen's group rounding at that facility. Tentatively next HD is planned for Thursday for clearance and some UF. Still suspect ATN as etiology from her sepsis event that initially required CRRT. After her rehab stay at [facility], I mentioned to the pt that she may choose which nephrology group that she wants. She most likely has ATN and thus far has shown no signs of renal recovery. She now has a Permacath and should be arranged for outpt HD for Dialysis dependent DEAN. (2) Cardiomyopathy Current Visit: Yes Status: Chronic As per primary and Cardiology Qualifiers: Cardiomyopathy type: other Qualified Code(s): I42.8 - Other cardiomyopathies (3) ATN (acute tubular necrosis) Current Visit: Yes Status: Acute Most likely etiology for the DEAN from the recent hypotension/shock/sepsis (4) Edema Current Visit: No Status: Chronic Qualifiers: Edema type: unspecified Qualified Code(s): R60.9 - Edema, unspecified (5) Hypertension Current Visit: No Status: Chronic Hx of, Qualifiers: Hypertension type: essential hypertension Qualified Code(s): I10 - Essential (primary) hypertension Subjective Principal diagnosis: Decreased EF, CMP, PAF Interval history: She was seen/examined earlier today. She did not affirm N/V/D. Objective - Vital Signs Vital signs: Vital Signs Temp Pulse Resp BP Pulse Ox 05/12/17 06:56 98.3 F 85 18 139/85 96 05/12/17 04:43 98.2 F 89 19 130/79 92 05/11/17 23:45 98.3 F 77 17 125/81 99 05/11/17 19:20 98.3 F 84 18 130/85 100 05/11/17 16:38 98.8 F 84 14 134/84 99 05/11/17 14:15 97.9 F 20 127/67 05/11/17 14:00 127/67 05/11/17 13:45 113/71 05/11/17 13:30 112/59 05/11/17 13:15 118/67 05/11/17 13:00 123/63 05/11/17 12:45 113/71 05/11/17 12:30 107/66 05/11/17 12:15 103/60 05/11/17 12:00 108/60 05/11/17 11:45 101/58 05/11/17 11:30 100/53 05/11/17 11:15 105/55 05/11/17 11:00 127/74 05/11/17 10:45 149/88 05/11/17 10:30 98.5 F 18 156/87 Intake and Output 05/11/17 05/12/17 05/12/17 23:59 07:59 15:59 Intake Total 100 / 100 300 / 300 Output Total 0 / 0 0 / 0 150 / 150 Balance 100 / 100 0 / 0 150 / 150 Intake: IV Fluids 100 / 100 Zosyn 3.375 GM In 100 / 100 Dextrose 5% (Minibag+) 100 ML 100 ML @ 25 mls/hr IVPB Q12HR [facility] Rx#: [id number] Oral 0 / 0 300 / 300 Output: Urine 0 / 0 0 / 0 150 / 150 Urethral (Haji) 0 / 0 0 / 0 Other: Meal Dinner Breakfast Percent of Meal Consumed 70% 70% Weight 143.6 kg Patient Weight 05/12/17 23:59 Weight 143.6 kg - General Appearance General appearance: Present: well-developed, well-nourished, appears started age , obese, fatigue, frail EENT: Present: ATNC, PERRL Neck: Present: supple Respiratory: Present: clear Cardiology: Present: edema (less pedal edema, mostly nonpitting SQ adiposity b/l ), regular rate, regular rhythm, normal S1, normal S2 Gastrointestinal: Present: normoactive bowel sounds, no tenderness, obese Integumentary: Present: warm and dry Neurologic: Present: no focal deficit, no asterixis, alert and oriented x3 Musculoskeletal: Present: no erythema, no cyanosis, no clubbing Psychiatric: Present: mood/affect appropriate, cooperative - Lab 05/11/17 05:52 05/11/17 05:52 Most recent lab results ABG pH 7.37 pH Units (7.32-7.45) 04/30/17 08:31 ABG pCO2 42 mmHg (35-45) 04/30/17 08:31 ABG pO2 65 mmHg (85-104) L 04/30/17 08:31 ABG HCO3 24.3 mEQ/L (21-27) 04/30/17 08:31 ABG O2 Saturation 92 % (95-98) L 04/30/17 08:31 Calcium 9.6 mg/dL (8.6-10.8) 05/11/17 05:52 Phosphorus 4.2 mg/dL (2.3-4.7) 05/04/17 04:30 Magnesium 2.6 mg/dL (1.6-2.6) 05/04/17 04:30 Urine Creatinine 57 mg/dL 04/29/17 23:05 Urine Sodium 88.0 mEq/L 04/29/17 23:05 - VTE Documentation of Mechanical Device: Venous foot pump, device Consult Discharge Plan - Plan Additional Instructions: Please have an INR drawn in 2 days for your coumadin therapy at [facility]. Please follow up with your PCP as scheduled Please follow up with your video poker floorman as scheduled Please follow up with Dr. Mcqueen's group at [facility] Please continue to take your metoprolol Please return to the hospital on acute new onset of fever, abdominal pain, pain with urination, extreme fatigue, blood in urine, shortness of breath, chest pain or new symptoms. Referrals: Barron Carbajal DO [Non-Partnered Physician] - 05/26/17 1:30 pm (Please call the office upon discharge for a sooner appointments..) Prescriptions: Metoprolol XL (24 HR) Succ [Toprol Xl] 12.5 mg PO BID #60 Warfarin [Coumadin] 5 mg PO DAILY@1800 #30 tab
--- NOTE | 2017-05-12 11:44 | Discharge Summary ---
<EjSusan - Last Filed: 05/12/17 17:10> Date of Encounter: 05/12/17 Time of Encounter: 11:27 (approx.) - Discharge Diagnosis (1) Septic shock Priority: Primary Status: Resolved (2) DEAN (acute kidney injury) Priority: Primary Status: Acute (3) CHF (congestive heart failure) Priority: Primary Status: Chronic Qualifiers: Congestive heart failure type: systolic Congestive heart failure chronicity : acute on chronic Qualified Code(s): I50.23 - Acute on chronic systolic ( congestive) heart failure (4) Atrial fibrillation with RVR Priority: Primary Status: Acute (5) Transaminitis Priority: Primary Status: Acute (6) Decubitus ulcer Priority: Secondary Status: Chronic Qualifiers: Pressure ulcer location: sacral region Pressure ulcer stage: unstageable Qualified Code(s): L89.150 - Pressure ulcer of sacral region, unstageable (7) Venous stasis of lower extremity Priority: Secondary Status: Chronic (8) Edema Priority: Secondary Status: Chronic Qualifiers: Edema type: unspecified Qualified Code(s): R60.9 - Edema, unspecified (9) DVT prophylaxis Priority: Secondary Status: Acute - Discharge Medications Prescriptions: Metoprolol XL (24 HR) Succ [Toprol Xl] 12.5 mg PO BID #60 Warfarin [Coumadin] 5 mg PO DAILY@1800 #30 tab Home Medications: Alendronate Sodium [Fosamax] 70 mg PO QWEEK 02/13/16 [History] Calcium Carb/Vitamin D3/Vit K1 [Calcium + D Soft Chewable Tab] 1 mg PO DAILY 04/22 [History] Citalopram Hydrobromide [Celexa] 20 mg PO DAILY 02/13/16 [History] Fluticasone Propionate Nasal [Flonase] 1 spr NS DAILY PRN 02/13/16 [History] Ranitidine HCl [Zantac] 150 mg PO BID 02/13/16 [History] Tolterodine Tartrate [Detrol] 2 mg PO BID 02/13/16 [History] Silver Sulfadiazine [Silvadene] 1 appl TP DAILY #1 tube 02/18/16 [Rx] Amitriptyline [Elavil] 25 mg PO DAILY 04/28/17 [History] DULoxetine [Cymbalta] 30 mg PO BID 04/28/17 [History] HYDROcodone/Acet 7.5/325 mg [[place] 7.5-325 mg] 1 tab PO Q6H 04/28/17 [History] Nystatin POWDER [Nystop] 1 appl TP BID 04/28/17 [History] Trazodone HCl 100 mg PO BID 04/28/17 [History] Metoprolol XL (24 HR) Succ [Toprol Xl] 12.5 mg PO BID #60 05/12/17 [Rx] Warfarin [Coumadin] 5 mg PO DAILY@1800 #30 tab 05/12/17 [Rx] Allergies/Adverse Reactions: 3 Allergy/AdvReac Type Severity Reaction Status Date / Time ibuprofen [From Motrin] AdvReac Nausea Verified 02/13/16 10:46 Procedures/tests Complete & Pending: Echocardiogram Electrocardiogam CXR Date of admission: 04/28/17 11:24 Primary care physician: PCP NONE Consults: 04/28/17 12:12 Consult to Community Relations Liaison [CONS] Routine Reason for SW Consult: Lives with daughter, she may need help upon discharge. 04/28/17 13:50 Consult to Critical Care [CONS] Routine Consulting Provider: Pulm Crit Care & Sleep [place] Reason for Consult: septic shock Call Completed: Yes 04/28/17 14:54 Consult to Gastroenterology [CONS] Routine Consulting Provider: Gastroenterology [place] Reason for Consult: Elevated transaminases, abdominal pain Time Notified: 14:55 Call Completed: Yes 04/29/17 07:22 Consult to Nephrology [CONS] Routine Consulting Provider: Kidney [place]/JANEEN/JODI/MALIK Reason for Consult: Acute Renal Failure Time Notified: 07:23 Call Completed: Yes 04/29/17 09:01 Consult to Interventional Radiology [CONS] Routine Consulting Provider: Radiology Interventional [place] Reason for Consult: Please evaluate for placement of a temporary HD catheter. Call Completed: Yes 04/29/17 09:55 Consult to Palliative Care [CONS] Routine Comment: Consulting Provider: Palliative Care [place] Reason for Consult: Support Call Completed: No 04/29/17 11:21 Consult to Cardiology [CONS] Routine Comment: Consulting Provider: Cardiology [place] Reason for Consult: CHF Call Completed: Yes 05/03/17 10:50 Consult to Occupational Therapy [CONS] Routine Comment: Evaluate, develop and implement POC Reason for Consult: Weakness Consult to Physical Therapy [CONS] Routine Comment: Evaluate, develop and implement POC Reason for Consult: Weakness 05/04/17 10:15 Consult to Dialysis [CONS] ONCE 05/05/17 12:51 Consult to Community Relations Liaison [CONS] Routine Reason for SW Consult: Please make arrangements for a chair times at [facility]. Will be under Dr Soto's name in outpatient dialysis 05/06/17 08:30 Consult to Dialysis [CONS] ONCE 05/06/17 09:07 Consult to Interventional Radiology [CONS] Routine Consulting Provider: Radiology Interventional Cols Reason for Consult: Tunneled dialysis catheter Call Completed: Yes 05/06/17 15:15 Consult to Invasive Line Access Team [CONS] Routine Reason for Consult: Unable to obtain IV access Line Type: EPIV 05/08/17 07:30 Consult to Dialysis [CONS] ONCE 05/11/17 07:00 Consult to Dialysis [CONS] ONCE Discharging clinician: Susan Pagan Anticipated date of discharge: 05/13/17 - Patient Status Disposition: Transfer SNF Condition: Fair Functional capacity at discharge: bed bound Overall status at discharge: patient is progressing back to baseline - Discharge Instructions Follow Up With: Barron Carbajal DO [Non-Partnered Physician] - 05/26/17 1:30 pm (Please call the office upon discharge for a sooner appointments..) Additional Instructions: Please have an INR drawn in 2 days for your coumadin therapy at [facility]. Please follow up with your PCP as scheduled Please follow up with your nipping machine operator as scheduled Please follow up with Dr. Mcqueen's group at [place] Please continue to take your metoprolol Please return to the hospital on acute new onset of fever, abdominal pain, pain with urination, extreme fatigue, blood in urine, shortness of breath, chest pain or new symptoms. - Diet and Activity Activity: wear oxygen at all times Diet: other (renal diet) Interval History: No acute events overnight. Family with patient this morning. States legs feel more comfortable. Hospital course: Ms. Wei is a 71 year old female with PMHx of recurrent UTIs, urinary incontinence, Parkinsonism, morbid obesity, COPD, , CHF, HTN, arthritis. Patient lives at home with her daughter, bed bound at home, and has limited activity. She was a transfer from [facility] ED for septic shock, after arriving with chief complaint of worsening abdominal pain rated at 6/10 , nausea and non-bloodly vomiting. she had about two episodes of vomiting since last night. During intake, person stated she says she had about ten UTIs in the past year. Upon initial arrival to [facility] ED, patient had HR 104, Respirations 25 , BP 71/54. On transfer, no guarding or peritoneal signs upon abdominal exam. VBG lactic acid at [facility] was 5 and repeat serum lactic acid was drawn and returned at 3. The source of infection was ruled likely secondary to UTI. She was placed on ceftriaxone. BP was refractory to [address] abdomen/ pelvis showed no significant findings. Multiple groups were placed on consult, including cardiology and nephrology. She was transferred out of the ICU and switched to iHD and monitored for response to hemodialysis. She will be transferred to [facility], which has a dialysis [facility] is planned for arrangement for outpatient HD for Dialysis dependent DEAN. - Time Spent with Patient Total time spent providing and/or coordinating discharge services: - Constitutional Vitals: Temp Pulse Resp BP Pulse Ox 98.5 F 69 18 106/71 96 05/12/17 10:42 05/12/17 10:42 05/12/17 10:42 05/12/17 10:42 05/12/17 10:42 General appearance: Present: cooperative, A&O X 3, pleasant, answers questions appropriately - Head Head exam: Present: atraumatic, normocephalic - Respiratory Respiratory exam: Present: CTAB. Absent: accessory muscle use, rales, rhonchi, wheezes - Cardiovascular Cardiovascular exam: Present: RRR, +S1, +S2 - GI/Abdominal GI/Abdominal exam: Present: normal bowel sounds. Absent: pulsatile mass, tenderness (Towel wrap between skin fold to absorb moisture) - Expanded Lower Extremities Exam Lower Leg exam: Absent: tenderness (Venous stasis b/l, more pronounced on left) - Neurological Exam Neurological exam: Present: alert, oriented X3. Absent: altered - VTE Documentation of Mechanical Device: Venous foot pump, device <Bg Tillman - Last Filed: 05/12/17 17:42> Date of Encounter: 05/12/17 - Discharge Diagnosis (1) UTI (urinary tract infection) Priority: Primary Status: Acute Qualifiers: Urinary tract infection type: acute cystitis Hematuria presence: with hematuria Qualified Code(s): N30.01 - Acute cystitis with hematuria (2) ATN (acute tubular necrosis) Priority: Primary Status: Acute (3) CHF (congestive heart failure) Priority: Secondary Status: Chronic Qualifiers: Congestive heart failure type: systolic Congestive heart failure chronicity : acute on chronic Qualified Code(s): I50.23 - Acute on chronic systolic ( congestive) heart failure (4) Atrial flutter Priority: Secondary Status: Acute Qualifiers: Atrial flutter type: typical Qualified Code(s): I48.3 - Typical atrial flutter (5) Atrial fibrillation Priority: Secondary Status: Chronic Qualifiers: Atrial fibrillation type: paroxysmal Qualified Code(s): I48.0 - Paroxysmal atrial fibrillation (6) Hypertension Priority: Secondary Status: Chronic Qualifiers: Hypertension type: essential hypertension Qualified Code(s): I10 - Essential (primary) hypertension (7) Cardiomyopathy Priority: Secondary Status: Chronic Qualifiers: Cardiomyopathy type: other Qualified Code(s): I42.8 - Other cardiomyopathies (8) Venous stasis of lower extremity Status: Chronic (9) Decubitus ulcer Status: Chronic Qualifiers: Pressure ulcer location: sacral region Pressure ulcer stage: unstageable Qualified Code(s): L89.150 - Pressure ulcer of sacral region, unstageable (10) Septic shock Status: Resolved Date of admission: 04/28/17 11:24 Primary care physician: PCP NONE Consults: 04/28/17 12:12 Consult to Community Relations Liaison [CONS] Routine Reason for SW Consult: Lives with daughter, she may need help upon discharge. 04/28/17 13:50 Consult to Critical Care [CONS] Routine Consulting Provider: Pulm Crit Care & Sleep T[place]ka Reason for Consult: septic shock Call Completed: Yes 04/28/17 14:54 Consult to Gastroenterology [CONS] Routine Consulting Provider: Gastroenterology [place] Reason for Consult: Elevated transaminases, abdominal pain Time Notified: 14:55 Call Completed: Yes 04/29/17 07:22 Consult to Nephrology [CONS] Routine Consulting Provider: Kidney [place]/JANEEN/JODI/MALIK Reason for Consult: Acute Renal Failure Time Notified: 07:23 Call Completed: Yes 04/29/17 09:01 Consult to Interventional Radiology [CONS] Routine Consulting Provider: Radiology Interventional Cols Reason for Consult: Please evaluate for placement of a temporary HD catheter. Call Completed: Yes 04/29/17 09:55 Consult to Palliative Care [CONS] Routine Comment: Consulting Provider: Palliative Care T[place]ka Reason for Consult: Support Call Completed: No 04/29/17 11:21 Consult to Cardiology [CONS] Routine Comment: Consulting Provider: Cardiology [place] Reason for Consult: CHF Call Completed: Yes 05/03/17 10:50 Consult to Occupational Therapy [CONS] Routine Comment: Evaluate, develop and implement POC Reason for Consult: Weakness Consult to Physical Therapy [CONS] Routine Comment: Evaluate, develop and implement POC Reason for Consult: Weakness 05/04/17 10:15 Consult to Dialysis [CONS] ONCE 05/05/17 12:51 Consult to Community Relations Liaison [CONS] Routine Reason for SW Consult: Please make arrangements for a chair times at [facility]. Will be under Dr Soto's name in outpatient dialysis 05/06/17 08:30 Consult to Dialysis [CONS] ONCE 05/06/17 09:07 Consult to Interventional Radiology [CONS] Routine Consulting Provider: Radiology Interventional Cols Reason for Consult: Tunneled dialysis catheter Call Completed: Yes 05/06/17 15:15 Consult to Invasive Line Access Team [CONS] Routine Reason for Consult: Unable to obtain IV access Line Type: EPIV 05/08/17 07:30 Consult to Dialysis [CONS] ONCE 05/11/17 07:00 Consult to Dialysis [CONS] ONCE Hospital course: Ms. Wei is a 71 year old female - Time Spent with Patient Total time spent providing and/or coordinating discharge services: 41min - Constitutional Vitals: Temp Pulse Resp BP Pulse Ox 98.8 F 71 18 117/68 96 05/12/17 16:41 05/12/17 16:41 05/12/17 16:41 05/12/17 16:41 05/12/17 16:41 - Attending Attestation I examined this patient and my medical decision-making was reviewed with the Resident Physician on 05/12/17. I agree with the documented findings, disposition and treatment plan as described except to the extent set forth below. Ms. Wei has been admitted for sepsis with subsequent ATN requiring dialysis. She has overall improved but is still requiring dialysis routinely. She completes abx tomorrow. She is now alert and oriented. She is afebrile and vitals stable. She is ready for discharge to SNF. Exam Alert. Comfortable Heart reg No wheeze Abd soft Edema unchanged Mucus membranes dry Plan D/C to SNF Follow up with PCP and renal
[2017-05-12] MEDS ORDERED: Mag Hydrox/Al Hydrox/Simeth 30 ML UDC PO PRN (11:50)
--- NOTE | 2017-05-12 14:32 | Physician Discharge Referral ---
ExtendedCare Referral Info Transfer To: [facility] Provider in Charge after Transfer: PCP Institutional Level of Care: Skilled - Diagnosis (1) Septic shock Priority: Primary Status: Resolved (2) DEAN (acute kidney injury) Priority: Primary Status: Acute (3) CHF (congestive heart failure) Priority: Primary Status: Chronic (4) Atrial fibrillation with RVR Priority: Primary Status: Acute (5) Transaminitis Priority: Secondary Status: Acute (6) Decubitus ulcer Status: Chronic (7) Venous stasis of lower extremity Status: Chronic (8) Edema Status: Chronic (9) DVT prophylaxis Status: Acute Prognosis: Fair Aware of Diagnosis: Patient, Family Aware of Prognosis: Patient, Family - Transfer Medications Prescriptions: Metoprolol XL (24 HR) Succ [Toprol Xl] 12.5 mg PO BID #60 Warfarin [Coumadin] 5 mg PO DAILY@1800 #30 tab Home Medications: Alendronate Sodium [Fosamax] 70 mg PO QWEEK 02/13/16 [History] Calcium Carb/Vitamin D3/Vit K1 [Calcium + D Soft Chewable Tab] 1 mg PO DAILY 04/22 [History] Citalopram Hydrobromide [Celexa] 20 mg PO DAILY 02/13/16 [History] Fluticasone Propionate Nasal [Flonase] 1 spr NS DAILY PRN 02/13/16 [History] Ranitidine HCl [Zantac] 150 mg PO BID 02/13/16 [History] Tolterodine Tartrate [Detrol] 2 mg PO BID 02/13/16 [History] Silver Sulfadiazine [Silvadene] 1 appl TP DAILY #1 tube 02/18/16 [Rx] Amitriptyline [Elavil] 25 mg PO DAILY 04/28/17 [History] DULoxetine [Cymbalta] 30 mg PO BID 04/28/17 [History] HYDROcodone/Acet 7.5/325 mg [[place] 7.5-325 mg] 1 tab PO Q6H 04/28/17 [History] Nystatin POWDER [Nystop] 1 appl TP BID 04/28/17 [History] Trazodone HCl 100 mg PO BID 04/28/17 [History] Metoprolol XL (24 HR) Succ [Toprol Xl] 12.5 mg PO BID #60 05/12/17 [Rx] Warfarin [Coumadin] 5 mg PO DAILY@1800 #30 tab 05/12/17 [Rx] Allergies/Adverse Reactions: 3 Allergy/AdvReac Type Severity Reaction Status Date / Time ibuprofen [From Motrin] AdvReac Nausea Verified 02/13/16 10:46 - Respiratory Orders Oxygen / L per min (2 L) Smoking Cessation: Smoking cessation has been advised. For more information, call the [employer] Mobile Quit Line at 1-848-TIQH-NOW. - Lab Orders Lab Orders: Other (include drug levels w/frequency) (INR in 2 days. Ongoing monitoring for coumadin therapy) - Ancillary Orders May use pressure relief devices daily prn, May go on MEGHA w/family/respon democrat w /meds at nurse discretion PRN - Advance Directives Code Status: Full Code - Mobility Orders Other (As tolerated. Pt is a fall risk.) - Rehabiliation Orders Rehab Potential: Fair Rehab Orders: ROM Exercises, Evaluation for Physical Therapy, Evaluation for Occupational Therapy - Treatments Skin tear care topically daily PRN per policy, May check for fecal impaction rectally daily PRN CERTIFICATION: I certify that the transfer of the above named patient to an Extended Care Facility is necessary for the continuing treatment of the diagnosis listed. The above information is true and accurate reflection of patient's current condition. Confidential - Redisclosure prohibited without a patient's written consent.
[2017-05-12] MEDS: *HR* Warfarin 5 MG TABLET PO SCH (17:38)
[2017-05-12] MEDS: traZODone 50 MG TABLET PO SCH (22:25)
[2017-05-13] MEDS: Piperacillin/Tazobactam 3.375 GM in D5% in Water (Mini-Bag+) 100 ML IVPB SCH (05:45)
[2017-05-13 06:09] LABS: INR 1.8; Prothrombin Time 19.5 Seconds (9.4-12.1)
[2017-05-13 06:13] LABS: Albumin 2.2 g/dL (3.5-5.0); Calcium 9.5 mg/dL (8.6-10.8); Phosphorous 4.7 mg/dL (2.3-4.7); Potassium 3.9 mEq/L (3.5-4.5)
[2017-05-13] MEDS ORDERED: 0.9 % Sodium Chloride 250 ML IVC PRN (08:06)
[2017-05-13] MEDS ORDERED: *HR* Heparin 10,000 UNIT/10 ML VIAL IV PRN (08:32)
--- NOTE | 2017-05-13 09:53 | Nephrology Progress Note ---
Date of Encounter: 05/13/17 Time of Encounter: 09:53 - Assessment and Plan (1) DEAN (acute kidney injury) Status: Acute She remains in the hospital, but is expected to discharge today (Thursday) after HD. Discharging to [facility], which has a dialysis unit that only has Dr. Mcqueen's group rounding at that facility. Ssuspected DEAN etiology is septic ATN. She initially required CRRT, then converted to iHD every MWF with a Permacath in place. After her rehab stay at [facility], I mentioned to the pt that she may choose which nephrology group that she wants. I spoke with Dr. Mcqueen to fill him in about this pt who will be dialyzing at his group's HD unit at [facility]. (2) Cardiomyopathy Status: Chronic As per primary and Cardiology Qualifiers: Cardiomyopathy type: other Qualified Code(s): I42.8 - Other cardiomyopathies (3) ATN (acute tubular necrosis) Status: Acute Most likely etiology for the DEAN from the recent hypotension/shock/sepsis (4) Edema Status: Chronic HD for UF and clearance this afternoon Qualifiers: Edema type: unspecified Qualified Code(s): R60.9 - Edema, unspecified (5) Hypertension Status: Chronic Hx of, Qualifiers: Hypertension type: essential hypertension Qualified Code(s): I10 - Essential (primary) hypertension Subjective Principal diagnosis: Decreased EF, CMP, PAF Interval history: She was seen/examined earlier today. She did not affirm N/V/D. Objective - Vital Signs Vital signs: Vital Signs Temp Pulse Resp BP Pulse Ox 05/13/17 07:37 97.9 F 70 16 137/83 96 05/13/17 03:57 98.1 F 76 16 117/77 97 05/13/17 00:11 98.2 F 74 17 110/70 98 05/12/17 19:29 98.3 F 78 18 125/79 97 05/12/17 16:41 98.8 F 71 18 117/68 96 05/12/17 10:42 98.5 F 69 18 106/71 96 Intake and Output 05/12/17 05/13/17 05/13/17 23:59 07:59 15:59 Intake Total 100 / 100 0 / 0 Output Total 0 / 0 0 / 0 Balance 100 / 100 0 / 0 Intake: IV Fluids 100 / 100 Zosyn 3.375 GM In 100 / 100 Dextrose 5% (Minibag+) 100 ML 100 ML @ 25 mls/hr IVPB Q12HR [facility] Rx#: [id number] Oral 0 / 0 0 / 0 Output: Urine 0 / 0 0 / 0 Urethral (Haji) 0 / 0 0 / 0 Other: Weight 143.3 kg Patient Weight 05/13/17 23:59 Weight 143.3 kg - General Appearance General appearance: Present: well-developed, well-nourished, appears started age Neck: Present: supple Respiratory: Present: clear Cardiology: Present: normal S1, normal S2 Dialysis Vascular Access: Venous Catheter Gastrointestinal: Present: normoactive bowel sounds, no tenderness Integumentary: Present: warm and dry Neurologic: Present: no focal deficit, no asterixis Musculoskeletal: Present: no clubbing Psychiatric: Present: cooperative - Lab 05/11/17 05:52 05/13/17 05:48 Most recent lab results ABG pH 7.37 pH Units (7.32-7.45) 04/30/17 08:31 ABG pCO2 42 mmHg (35-45) 04/30/17 08:31 ABG pO2 65 mmHg (85-104) L 04/30/17 08:31 ABG HCO3 24.3 mEQ/L (21-27) 04/30/17 08:31 ABG O2 Saturation 92 % (95-98) L 04/30/17 08:31 Calcium 9.5 mg/dL (8.6-10.8) 05/13/17 05:48 Phosphorus 4.7 mg/dL (2.3-4.7) 05/13/17 05:48 Magnesium 2.6 mg/dL (1.6-2.6) 05/04/17 04:30 Urine Creatinine 57 mg/dL 04/29/17 23:05 Urine Sodium 88.0 mEq/L 04/29/17 23:05 - VTE Documentation of Mechanical Device: Venous foot pump, device Consult Discharge Plan - Plan Additional Instructions: Please have an INR drawn in 2 days for your coumadin therapy at [facility]. Please follow up with your PCP as scheduled Please follow up with your r and d lab technician as scheduled Please follow up with Dr. Mcqueen's group at [facility] Please continue to take your metoprolol Please return to the hospital on acute new onset of fever, abdominal pain, pain with urination, extreme fatigue, blood in urine, shortness of breath, chest pain or new symptoms. Pt is to report to [facility] at 0600 on May 14. Referrals: Barron Carbajal DO [Non-Partnered Physician] - 05/26/17 1:30 pm (Please call the office upon discharge for a sooner appointments..) Prescriptions: RX: Metoprolol XL (24 HR) Succ [Toprol Xl] 12.5 mg PO BID #60 RX: Warfarin [Coumadin] 5 mg PO DAILY@1800 #30 tab
[2017-05-13] MEDS ORDERED: 0.9 % Sodium Chloride 1,000 ML ONE (10:03)
--- NOTE | 2017-05-13 10:21 | Internal Med Progress Note ---
<EjSusan - Last Filed: 05/13/17 11:44> Date of Encounter: 05/13/17 Time of Encounter: 10:15 - Assessment and plan (1) Septic shock Status: Resolved Assessment and plan: Hx of Septic shock in ICU Pt on piperacillin/tazobactam, will end today (2) DEAN (acute kidney injury) Status: Acute Assessment and plan: Following renal panel - Creatinine downtrended from 6.55 (05/11/17) to 5.52 Nephro on consult, appreciate recs HD for UF and clearance this afternoon, per nephro Social work called [facility] dialysis ([facility]) center to check on status of patient's referral for dialysis and insurance verification per previous social work notes Greatly appreciate social work recs (3) CHF (congestive heart failure) Status: Chronic Assessment and plan: No new symptoms or issues. Continue as is for now. Qualifiers: Congestive heart failure type: systolic Congestive heart failure chronicity : acute on chronic Qualified Code(s): I50.23 - Acute on chronic systolic ( congestive) heart failure (4) Atrial fibrillation with RVR Status: Acute Assessment and plan: Cardio on consult. -CHADVASC score 4 (age, gender, HTN, CHF history). Plan: Coumadin initation per pharmacy Coumadin prescription, plan for INR follow up in ECF (5) Transaminitis Status: Acute Assessment and plan: Transaminitis following septic shock, Likely 2/2 to hypotension in setting of septic shock Continue Holding statins (6) Decubitus ulcer Status: Chronic Assessment and plan: Exam continues to be limited 2/2 to pt's immobility Hx of refusal for movement for view of decubitus ulcer Qualifiers: Pressure ulcer location: sacral region Pressure ulcer stage: unstageable Qualified Code(s): L89.150 - Pressure ulcer of sacral region, unstageable (7) Venous stasis of lower extremity Status: Chronic Assessment and plan: Continuing to encourage compression and elevation. Encouraged compression this AM, but pt politely refused. Family aware, pt does not wish compression bandages (8) Edema Status: Chronic Assessment and plan: HD for UF and clearance this afternoon, per nephro Qualifiers: Edema type: unspecified Qualified Code(s): R60.9 - Edema, unspecified (9) DVT prophylaxis Status: Acute Assessment and plan: Wells' Score for risk of DVT - minimum score of ( Bedridden recently >3 days , Collateral (nonvaricose) superficial veins present, Entire leg swollen, immobilization of the lower extremity 2/2 to pt's debility) Continue coumadin - Subjective Interval history: No acute events overnight. No SOB. Pt feels comfortable. Family and pt is aware that social service director working on patient's referral for dialysis and insurance verification per previous social work notes, "understand" that these things "take a long time." MD resident inquired once again regarding use of compression devices or compression therapy, pt politely refused. - Constitutional Vitals: Temp Pulse Resp BP Pulse Ox 97.9 F 70 16 137/83 96 05/13/17 07:37 05/13/17 07:37 05/13/17 07:37 05/13/17 07:37 05/13/17 07:37 General appearance: Present: cooperative, A&O X 3, pleasant, answers questions appropriately - Head Head exam: Present: atraumatic, normocephalic - Respiratory Respiratory exam: Present: CTAB (Remains difficult to move pt forward, for lung auscultation. 2 L nasal cannula, in place). Absent: accessory muscle use, rales , rhonchi, wheezes - Cardiovascular Cardiovascular exam: Present: RRR, +S1, +S2. Absent: gallop, rubs, systolic murmur - GI/Abdominal GI/Abdominal exam: Present: normal bowel sounds, soft. Absent: guarding (towel in place between skin folds for absorption) - Extremities Exam Extremities exam: Present: cyanotic, warm. Absent: calf tenderness, pedal edema Additional comments: venous stasis, bilateral Internal Medicine: Result - Labs CBC & Chem 7: 05/11/17 05:52 05/13/17 05:48 Labs: BMP 05/13/17 05:48 Sodium 138 Potassium 3.9 Chloride 98 Carbon Dioxide 30 H BUN 35 H Creatinine 5.52 H Glucose 94 Calcium 9.5 Liver Function 05/13/17 Range/Units 05:48 Albumin 2.2 L (3.5-5.0) g/dL - ABG Interpretation ABG results: ABG ABG pH 7.37 pH Units (7.32-7.45) 04/30/17 08:31 ABG pCO2 42 mmHg (35-45) 04/30/17 08:31 ABG pO2 65 mmHg (85-104) L 04/30/17 08:31 ABG O2 Saturation 92 % (95-98) L 04/30/17 08:31 PT/INR, D-dimer PT 19.5 Seconds (9.4-12.1) H 05/13/17 05:48 - VTE Documentation of Mechanical Device: Venous foot pump, device Consult Discharge Plan - Plan Additional Instructions: Please have an INR drawn in 2 days for your coumadin therapy at [facility]. 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 Mcqueen's group at [place] Please continue to take your metoprolol Please return to the hospital on acute new onset of fever, abdominal pain, pain with urination, extreme fatigue, blood in urine, shortness of breath, chest pain or new symptoms. Pt is to report to [facility] at 0600 on May 14. Referrals: Barorn Carbajal, [Non-Partnered Physician] - 05/26/17 1:30 pm (Please call the office upon discharge for a sooner appointments..) Prescriptions: Metoprolol XL (24 HR) Succ [Toprol Xl] 12.5 mg PO BID #60 Warfarin [Coumadin] 5 mg PO DAILY@1800 #30 tab <Bg Tillman - Last Filed: 05/13/17 18:55> Date of Encounter: 05/13/17 - Assessment and plan (1) UTI (urinary tract infection) Status: Acute Qualifiers: Urinary tract infection type: acute cystitis Hematuria presence: with hematuria Qualified Code(s): N30.01 - Acute cystitis with hematuria (2) ATN (acute tubular necrosis) Status: Acute (3) CHF (congestive heart failure) Status: Chronic Qualifiers: Congestive heart failure type: systolic Congestive heart failure chronicity : acute on chronic Qualified Code(s): I50.23 - Acute on chronic systolic ( congestive) heart failure (4) Atrial flutter Status: Acute Qualifiers: Atrial flutter type: typical Qualified Code(s): I48.3 - Typical atrial flutter (5) Atrial fibrillation Status: Chronic Qualifiers: Atrial fibrillation type: paroxysmal Qualified Code(s): I48.0 - Paroxysmal atrial fibrillation (6) Hypertension Status: Chronic Qualifiers: Hypertension type: essential hypertension Qualified Code(s): I10 - Essential (primary) hypertension (7) Cardiomyopathy Status: Chronic Qualifiers: Cardiomyopathy type: other Qualified Code(s): I42.8 - Other cardiomyopathies (8) Venous stasis of lower extremity Status: Chronic (9) Decubitus ulcer Status: Chronic Qualifiers: Pressure ulcer location: sacral region Pressure ulcer stage: unstageable Qualified Code(s): L89.150 - Pressure ulcer of sacral region, unstageable (10) Septic shock Status: Resolved - Constitutional Vitals: Temp Pulse Resp BP Pulse Ox 98.5 F 87 16 117/72 92 05/13/17 16:34 05/13/17 16:34 05/13/17 16:34 05/13/17 16:34 05/13/17 16:34 Internal Medicine: Result - Labs CBC & Chem 7: 05/11/17 05:52 05/13/17 05:48 Labs: BMP 05/13/17 05:48 Sodium 138 Potassium 3.9 Chloride 98 Carbon Dioxide 30 H BUN 35 H Creatinine 5.52 H Glucose 94 Calcium 9.5 Liver Function 05/13/17 Range/Units 05:48 Albumin 2.2 L (3.5-5.0) g/dL - ABG Interpretation ABG results: ABG ABG pH 7.37 pH Units (7.32-7.45) 04/30/17 08:31 ABG pCO2 42 mmHg (35-45) 04/30/17 08:31 ABG pO2 65 mmHg (85-104) L 04/30/17 08:31 ABG O2 Saturation 92 % (95-98) L 04/30/17 08:31 PT/INR, D-dimer PT 19.5 Seconds (9.4-12.1) H 05/13/17 05:48 - Attending Attestation I examined this patient and my medical decision-making was reviewed with the Resident Physician on 05/13/17. I agree with the documented findings, disposition and treatment plan as described except to the extent set forth below. Ms. Wei is currently admitted for sepsis with renal failure. She remains moderate risk and is awaiting transfer to [facility]. Ms Wei feels OK today. No new issues. Dialysis approved at [facility]. Exam Alert. Comfortable Mucus membranes dry Heart reg No wheeze Abd soft Edema present Plan D/C today.
[2017-05-13] MEDS: Aspirin Enteric Coated 81 MG Tablet PO SCH (13:35)
[2017-05-13] MEDS: Metoprolol XL (24 HR) Succ 25 MG TAB.ER.24H PO SCH (13:39)
[2017-05-13] MEDS: Nystatin Cream 15 GM TUBE TP SCH (13:44)
[2017-05-13] MEDS ORDERED: Bisacodyl 10 MG RECTAL SUPPOSITORY RC ONE (15:34)
[2017-05-13] MEDS: *HR* OxyCODONE Immed Rel 5 MG TABLET PO PRN (16:19)
[2017-05-13 16:35] VITALS: BP 117/72
[2017-05-13] MEDS ORDERED: *HR* Warfarin 3 MG TABLET PO SCH (18:00)
[2017-05-14] MEDS ORDERED: *HR* Warfarin 5 MG TABLET PO SCH (18:00)
== END 2017-05-13 17:35 | DRG 720 ==
LOC: SUATTDRO 11:24 → ICNU 11:24 → 2ANU 05-02 15:10
PROVIDERS: ADMIT Internal Medicine; ATTEND Internal Medicine
PROC: IRPERMA (2017-05-06 12:00)

== ENCOUNTER 2017-06-29 08:09 | Inpatient (IN) ==
[2017-06-29] MEDS ORDERED: 0.9 % Sodium Chloride 2,000 ML ONE (10:26)
[2017-06-29] MEDS ORDERED: Norepinephrine 4 MG in D5% in Water 250 ML IVC SCH (11:00)
[2017-06-29] MEDS ORDERED: Naloxone 0.4 MG/ML INJ IVP PRN (11:01)
[2017-06-29] MEDS ORDERED: Lacri-Lube 3.5 GM TUBE BOTH EYES PRN (11:06)
--- NOTE | 2017-06-29 11:28 | Pulmonology History & Physical ---
<Daniel Garcia - Last Filed: 06/29/17 12:13> Date of Encounter: 06/29/17 Time of Encounter: 11:28 Assessment and Plan (1) Septic shock Current visit: Yes Status: Acute (2) UTI (urinary tract infection) Current visit: No Status: Acute Qualifiers: Urinary tract infection type: acute cystitis Hematuria presence: without hematuria Qualified Code(s): N30.00 - Acute cystitis without hematuria (3) ESRD (end stage renal disease) on dialysis Current visit: Yes Status: Acute (4) Atrial fibrillation with RVR Current visit: No Status: Acute (5) Decubital ulcer Current visit: Yes Status: Acute Qualifiers: Pressure ulcer location: sacral region Pressure ulcer stage: stage 2 Qualified Code(s): L89.152 - Pressure ulcer of sacral region, stage 2 History of Present Illness Chief complaint: Unresponsive HPI: Ms. Wei is a 72 year old female with history of end-stage renal disease on dialysis, atrial [facility]. Patient is intubated and sedated and is unresponsive at this time so history is limited. Attempts to contact the family were unsuccessful. Per records review from the emergency department the patient was last seen well at 3 in the morning and was found to be unresponsive around 5AM. Patient was successfully intubated in the emergency department. At this point patient is minimal sedation and remains unresponsive. She does not appear to be in any acute distress and does not respond to painful stimuli. Past Med Surg Social Fam HX - Past Medical History Medical history: arthritis, COPD, GERD, hypertension, osteoporosis Psychiatric history: ADHD, depression - Past Surgical History Surgical History: other - Social History Smoking Status: Never smoker Smokeless Tobacco Status: No Alcohol use: none Drug use: none - Family History Mother Living Status: Hx Family Cardiac Disorders: Yes Hx Family Endocrine Disorder: Yes (Diabetes) Medications and Allergies Alendronate Sodium [Fosamax] 70 mg PO QWEEK 02/13/16 [History] Calcium Carb/Vitamin D3/Vit K1 [Calcium + D Soft Chewable Tab] 1 mg PO DAILY 04/22 [History] Amitriptyline [Elavil] 25 mg PO DAILY 04/28/17 [History] DULoxetine [Cymbalta] 30 mg PO BID 04/28/17 [History] HYDROcodone/Acet 7.5/325 mg [[place] 7.5-325 mg] 1 tab PO Q6H 04/28/17 [History] Trazodone HCl 100 mg PO BID 04/28/17 [History] Metoprolol XL (24 HR) Succ [Toprol Xl] 12.5 mg PO BID #60 05/12/17 [Rx] Bisacodyl [Dulcolax] 10 mg RC DAILY PRN 06/29/17 [History] Dicyclomine [Bentyl] 10 mg PO QID 06/29/17 [History] Docusate Sodium [Dok] 100 mg PO BID 06/29/17 [History] Gabapentin [Neurontin] 100 mg PO BID 06/29/17 [History] Linaclotide [Linzess] 145 mcg PO DAILY 06/29/17 [History] Lubiprostone [Amitiza] 24 mcg PO BID 06/29/17 [History] Mirtazapine [Remeron] 15 mg PO HS 06/29/17 [History] Ondansetron HCl [Zofran] 4 mg PO Q6H PRN 06/29/17 [History] Oxybutynin [Ditropan] 5 mg PO DAILY 06/29/17 [History] Ranitidine HCl [Zantac 75] 75 mg PO BID 06/29/17 [History] Renal Vitamin [Renal Caps Softgel] 1 mg PO DAILY 06/29/17 [History] Sertraline [Zoloft] 50 mg PO DAILY 06/29/17 [History] Warfarin [Coumadin] 1.5 mg PO Q48H 06/29/17 [History] Warfarin [Coumadin] 2 mg PO Q48H 06/29/17 [History] 3 Allergy/AdvReac Type Severity Reaction Status Date / Time ibuprofen [From Motrin] AdvReac Nausea Verified 02/13/16 10:46 ROS unobtainable: due to endotracheal tube All Systems: A 10-system review of systems was performed and is negative for pertinent findings except as documented above in the HPI. Physical Examination Vital Signs: Vital Signs, Last 4 Hours Pulse Resp BP Pulse Ox 06/29/17 11:00 17 105/58 100 06/29/17 10:30 72 12 91/74 99 06/29/17 10:25 70 06/29/17 10:20 14 49/35 95 General appearance: comatose Eyes: nonicteric ENT: oropharynx dry Auscultation: bilateral: diminished breath sounds Cardiovascular: irregular rhythm (tachycardia) Gastrointestinal: hypoactive bowel sounds, soft, non-tender Integumentary: decubitus ulcer (stage 2, present on arrival) Extremities: no cyanosis, cool (all 4 extremities), edema (trace LE bilaterally) unable to assess due to mental status Results - Laboratory Findings CBC and BMP: 06/29/17 11:15 Abnormal lab findings: Abnormal lab results POC Glucose 138 (58-89) H 06/29/17 10:16 <Emily Smith M - Last Filed: 06/29/17 13:42> Date of Encounter: 06/29/17 History of Present Illness HPI: Ms. Wei is a 72 year old female All Systems: A 10-system review of systems was performed and is negative for pertinent findings except as documented above in the HPI. Physical Examination Vital Signs: Vital Signs, Last 4 Hours Pulse Resp BP Pulse Ox 06/29/17 13:18 16 93/80 100 06/29/17 13:00 118 16 85/64 96 06/29/17 12:00 102 12 97/61 100 06/29/17 11:00 71 12 105/58 99 06/29/17 10:30 72 12 91/74 99 06/29/17 10:25 70 06/29/17 10:20 14 49/35 95 Results - Laboratory Findings CBC and BMP: 06/29/17 11:15 ABG ABG pH 7.23 pH Units (7.32-7.45) L 06/29/17 11:51 ABG pCO2 36 mmHg (35-45) 06/29/17 11:51 ABG pO2 188 mmHg (85-104) H 06/29/17 11:51 ABG O2 Saturation 99 % (95-98) H 06/29/17 11:51 Abnormal lab findings: Abnormal lab results ABG pH 7.23 pH Units (7.32-7.45) L 06/29/17 11:51 ABG pO2 188 mmHg (85-104) H 06/29/17 11:51 ABG HCO3 15 mEq/L (21-27) L 06/29/17 11:51 ABG Total CO2 16 mEq/L (20-26) L 06/29/17 11:51 ABG O2 Saturation 99 % (95-98) H 06/29/17 11:51 ABG Base Excess -12 mEq/L (-2 to 3) L 06/29/17 11:51 Sodium 131 mEq/L (136-145) L 06/29/17 11:15 Carbon Dioxide 15 mEq/L (19-29) L 06/29/17 11:15 BUN 61 mg/dL (7-20) H 06/29/17 11:15 Creatinine 4.40 mg/dL (0.57-1.11) H 06/29/17 11:15 Est GFR ( Amer) 12 (> 60) L 06/29/17 11:15 Est GFR (Non-Af Amer) 10 (> 60) L 06/29/17 11:15 Glucose 144 mg/dL (70-99) H 06/29/17 11:15 POC Glucose 138 (58-89) H 06/29/17 10:16 Calcium 8.0 mg/dL (8.6-10.8) L D 06/29/17 11:15 Magnesium 1.5 mg/dL (1.6-2.6) L 06/29/17 11:15 Troponin I 0.10 ng/mL (0-0.03) H* 06/29/17 11:15 Salicylates < 5.0 mg/dL (15-30) L 06/29/17 11:15 Acetaminophen < 1.0 mcg/mL (10-30) L 06/29/17 11:15 - Attending Attestation I examined this patient and my medical decision-making was reviewed with the Resident Physician. I agree with the documented findings, disposition and treatment plan as described except to the extent set forth below. Patient seen and examined. Labs, radiology, chart personally reviewed. 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 Pulmonary: Acceptable oxygenation and ventilation and a follow-up ABG was done still shows evidence of metabolic acidosis which would be treated. Vent mode changed to VC+. Cardiovascular: She is in septic shock and mild elevation in troponin which could be a leak and end-stage renal disease, however need to make sure diastolic cardiac event. GI: Nutrition per dietary and GI prophylaxis per routine Heme: DVT prophylaxis per routine ID: Continue antibiotics and plan to de-escalation. We will change vancomycin to daptomycin and continue coverage Renal; nephrology consultation for the dialysis Endorcine: blood glucose is monitored Lines: all lines checked and no evidence of infections Skin: skin care to prevent pressure ulcers per nursing routine care unit patient has evidence of hypoperfusion with cold skin and poor capillary refills. We have tried multiple times to reach the family without success. I believe overall prognosis is poor. I spent 45 min of Critical Care time with this patient. It involved decision making of high complexity to assess, manipulate, and support vital organ system failure and/or to prevent further life threatening deterioration of the patient' s condition. The time involved in the performance of separately reportable procedures was not counted toward critical care time.
[2017-06-29 11:42] LABS: ABG Base Excess -13 mEq/L (-2 to 3); ABG HCO3 14 mEq/L (21-27); ABG Oxygen Saturation 99 % (95-98); ABG PCO2 37 mmHg (35-45); ABG PH 7.19 pH Units (7.32-7.45); ABG PO2 182 mmHg (85-104); ABG TCO2 16 mEq/L (20-26); Blood Gas Modality VC; Blood Gas PEEP 5 cm H2O; Blood Gas Respiration Rate 12; Blood Gas VT 500 cc
[2017-06-29 11:45] LABS: BUN/Creatinine Ratio 14 (6-26); Blood Urea Nitrogen 61 mg/dL (7-20); Carbon Dioxide 15 mEq/L (19-29); Chloride 103 mEq/L (98-109); Creatine Kinase 127 Units/L (29-168); Glucose 144 mg/dL (70-99); Magnesium 1.5 mg/dL (1.6-2.6); Osmolality,Calculated 292 (280-300); Sodium 131 mEq/L (136-145); eGFR For African Americans 12 (> 60); eGFR For Non-African Americans 10 (> 60)
[2017-06-29 11:55] LABS: ABG Base Excess -12 mEq/L (-2 to 3); ABG HCO3 15 mEq/L (21-27); ABG Oxygen Saturation 99 % (95-98); ABG PCO2 36 mmHg (35-45); ABG PH 7.23 pH Units (7.32-7.45); ABG PO2 188 mmHg (85-104); ABG TCO2 16 mEq/L (20-26); Blood Gas Modality ASSIST CONTROL
--- NOTE | 2017-06-29 11:58 | Procedure Note ---
<Daniel Garcia - Last Filed: 06/29/17 11:54> Date of procedure: 06/29/17 Pre-op diagnosis: Hypotension Post-op diagnosis: same Procedure: Central venous catheter placement: Patient was intubated and sedated and unable to give consent, multiple attempts to reach family were made and unsuccessful. Given that the procedure is considered emergent it was determined by myself, the attending physician, as well as nursing staff that the procedure was emergent and medically necessary so we proceeded. The right inguinal area was surveyed using ultrasound and deemed to be a suitable target. The patient was cleaned and draped in the usual sterile fashion. Under ultrasound guidance introducer needle was advanced into the right femoral vein. Dark red, nonpulsatile blood flow was returned. The guidewire was fed through the introducer needle without resistance. Using ultrasound the guidewire was then visualized within the right femoral vein. Introducer needle was removed and a faby in the skin was made. The dilator was advanced over the guidewire in the skin and soft tissues were dilated. A 30 cm triple-lumen catheter was advanced over the guidewire and into the femoral vein without resistance. The guidewire was removed intact. All 3 ports were tested and found to draw blood and flushed easily. The catheter was then sutured in place. Biopatch and start dressing were applied. The attending physician, Dr. Smith, was present for the entire procedure. The patient tolerated the procedure well, there are no immediate complications. Anesthesia: GETA Surgeon: Daniel Garcia Estimated blood loss (cc): 10 IV fluids (cc): 10 Pathology: none sent Condition: critical Disposition: ICU <Emily Smith - Last Filed: 06/29/17 13:43> Procedure: I examined this patient and my medical decision-making was reviewed with the Resident Physician. I agree with the documented findings, disposition and treatment plan as described except to the extent set forth below. Patient in septic shock and multiple attempts to reach family without success and patient needed vasopressors for that reason this was done urgently and a supervised Dr. Garcia placing central line without immediate complications.
[2017-06-29] MEDS ORDERED: DAPTOmycin 1,000 MG in 0.9 % Sodium Chloride 100 ML IVPB SCH (12:00)
[2017-06-29] MEDS: Lacri-Lube 3.5 GM TUBE BOTH EYES SCH ×4 (12:29→23:46)
[2017-06-29] MEDS ORDERED: *HR* FentaNYL (PF) 100 MCG/2 ML VIAL IVP ONE (12:34)
[2017-06-29 12:46] LABS: Acetaminophen < 1.0 mcg/mL (10-30); Salicylate < 5.0 mg/dL (15-30)
--- NOTE | 2017-06-29 12:48 | Nephrology Consult Note ---
Date of Encounter: 06/29/17 Time of Encounter: 12:15 History of Present Illness - Reason for Consult end stage renal disease - History of Present Illness A/P-Clinical picture sepsis, cultures pending. Possible anoxic encephalopathy. ESRD on HD- currently hemodynamically unstable, no immediate need for HD and will not dialyze today. Will continue to monitor. Ms. eWi is a 72 year old female with ESRD who dializes at [place] on MWF via right I/J HD catheter. Last dialysis on Thursday. She resides at [facility]. Other PMH-arthritis, COPD, GERD, hypertension, osteoporosis, ADHD, depression. Ms. Wei is intubated, FiO2 .50, peep 5 and on one pressor, eyes open, not focusing. . No family present to provide history therefore events obtained from prior records. Patient was found non responsive this morning by nursing facility staff, down time unclear and transferred to ER and intubated and admitted to ICU. Current labs Creat 4.40, K 4.0, CO2 15, Lactic acid 2.2, trop 0.10, WBC 17, Hgb 11.3, urine large leuks, culture pending. CXR- no acute process. Past Med Surg Social Fam HX - Past Medical History Medical history: arthritis, COPD, GERD, hypertension, osteoporosis Psychiatric history: ADHD, depression - Past Surgical History Surgical History: other - Social History Smoking Status: Never smoker Smokeless Tobacco Status: No Alcohol use: none Drug use: none - Family History Mother History Unknown: Yes Living Status: Hx Family Cardiac Disorders: Yes Hx Family Endocrine Disorder: Yes (Diabetes) Medications and Allergies Alendronate Sodium [Fosamax] 70 mg PO QWEEK 02/13/16 [History] Calcium Carb/Vitamin D3/Vit K1 [Calcium + D Soft Chewable Tab] 1 mg PO DAILY 04/22 [History] Amitriptyline [Elavil] 25 mg PO DAILY 04/28/17 [History] DULoxetine [Cymbalta] 30 mg PO BID 04/28/17 [History] HYDROcodone/Acet 7.5/325 mg [[place] 7.5-325 mg] 1 tab PO Q6H 04/28/17 [History] Trazodone HCl 100 mg PO BID 04/28/17 [History] Metoprolol XL (24 HR) Succ [Toprol Xl] 12.5 mg PO BID #60 05/12/17 [Rx] Bisacodyl [Dulcolax] 10 mg RC DAILY PRN 06/29/17 [History] Dicyclomine [Bentyl] 10 mg PO QID 06/29/17 [History] Docusate Sodium [Dok] 100 mg PO BID 06/29/17 [History] Gabapentin [Neurontin] 100 mg PO BID 06/29/17 [History] Linaclotide [Linzess] 145 mcg PO DAILY 06/29/17 [History] Lubiprostone [Amitiza] 24 mcg PO BID 06/29/17 [History] Mirtazapine [Remeron] 15 mg PO HS 06/29/17 [History] Ondansetron HCl [Zofran] 4 mg PO Q6H PRN 06/29/17 [History] Oxybutynin [Ditropan] 5 mg PO DAILY 06/29/17 [History] Ranitidine HCl [Zantac 75] 75 mg PO BID 06/29/17 [History] Renal Vitamin [Renal Caps Softgel] 1 mg PO DAILY 06/29/17 [History] Sertraline [Zoloft] 50 mg PO DAILY 06/29/17 [History] Warfarin [Coumadin] 1.5 mg PO Q48H 06/29/17 [History] Warfarin [Coumadin] 2 mg PO Q48H 06/29/17 [History] 3 Allergy/AdvReac Type Severity Reaction Status Date / Time ibuprofen [From Motrin] AdvReac Nausea Verified 02/13/16 10:46 Review of Systems ROS unobtainable: due to mental status All Systems: reviewed and no additional remarkable complaints except as stated Exam - Vital Signs Vital signs: Initial Vital Signs Resp BP Pulse Ox 14 49/35 95 06/29/17 10:20 06/29/17 10:20 06/29/17 10:20 Vital Signs - Last 8 Hours Pulse Resp BP Pulse Ox 06/29/17 12:00 102 12 97/61 100 06/29/17 11:00 71 12 105/58 99 06/29/17 10:30 72 12 91/74 99 06/29/17 10:25 70 06/29/17 10:20 14 49/35 95 Intake and Output 06/28/17 06/29/17 06/29/17 23:59 07:59 15:59 Intake Total 1019 / 1019 Output Total 0 / 0 Balance 1019 / 1019 Intake: IV Fluids 1019 / 1019 0.9 % Sodium Chloride 2,000 ML 1000 / 1000 As .ROUTE .STK-MED ONE Rx#: [id number] Levophed 4 MG In Dextrose 5% 250 ML @ 4 MCG/MIN 15.24 mls/hr IVC CONT JENNA Rx#:[id number] Oral 0 / 0 Output: Catheter 0 / 0 Other: Weight 127.3 kg Blood Glucose* 138 Patient Weight 06/29/17 23:59 Weight 127.3 kg - General Appearance General appearance: well-developed, well-nourished, appears started age, obese EENT: mucous membranes moist Respiratory: clear Cardiology: irregular rhythm Additional Comments: morbid obese legs Gastrointestinal: hypoactive bowel sounds Integumentary: warm and dry Results - Lab Results 06/29/17 11:15 Most recent lab results ABG pH 7.23 pH Units (7.32-7.45) L 06/29/17 11:51 ABG pCO2 36 mmHg (35-45) 06/29/17 11:51 ABG pO2 188 mmHg (85-104) H 06/29/17 11:51 ABG HCO3 15 mEq/L (21-27) L 06/29/17 11:51 ABG O2 Saturation 99 % (95-98) H 06/29/17 11:51 Calcium 8.0 mg/dL (8.6-10.8) L D 06/29/17 11:15 Magnesium 1.5 mg/dL (1.6-2.6) L 06/29/17 11:15
[2017-06-29] MEDS: Dexmedetomidine HCl 400 MCG/100 ML MLS IVC SCH ×2 (13:16→22:54)
--- NOTE | 2017-06-29 15:07 | Electrocardiograph Report ---
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
[2017-06-29] MEDS ORDERED: 0.9 % Sodium Chloride 1,000 ML IVC SCH (15:15)
[2017-06-29] MEDS: Vasopressin 40 UNIT in D5% in Water 100 ML IV SCH ×3 (15:28→16:59)
[2017-06-29] MEDS ORDERED: Amiodarone Premix 360 MG/200 ML BAG IVC ONE (16:34)
[2017-06-29] MEDS ORDERED: Amiodarone Premix 150 MG/100 ML BAG IVPB ONE (16:34)
[2017-06-29] MEDS: Phenylephrine 10 MG in D5% in Water 250 ML IVC SCH ×2 (16:37→19:37)
[2017-06-29] MEDS: Norepinephrine 4 MG in D5% in Water 250 ML IVC SCH ×2 (16:58→21:02)
[2017-06-29] MEDS ORDERED: *HR* Heparin 5,000 UNIT/ML VIAL IVP PRN ×2 (18:25)
[2017-06-29] MEDS ORDERED: Heparin 25,000 UNIT/500 ML D5W 25,000 UNIT/500 ML MLS IVC SCH (18:30)
[2017-06-29 19:02] LABS: Red Cell Distribution Width 17.7 % (11.5-14.5)
[2017-06-29 19:03] LABS: Hematocrit 35.5 % (35.3-44.9); Hemoglobin 11.5 g/dL (11.5-15.4); Mean Corpuscular HGB Conc 32.4 g/dL (31.6-35.5); Mean Corpuscular Hemoglobin 27.6 pg (28.0-33.3); Mean Corpuscular Volume 85.3 fL (83.0-100.0); Mean Platelet Volume 10.3 fL (9.4-12.4); Platelet Count 306 K/mcL (140-400); Red Blood Count 4.16 M/mcL (3.82-4.97)
[2017-06-29 19:04] LABS: INR 1.9
[2017-06-29 19:07] LABS: Activated Partial Thrombo Time 35.7 Seconds (26.0-36.0)
[2017-06-29] MEDS: Amiodarone Premix 360 MG/200 ML BAG IVC SCH ×2 (19:39→22:54)
[2017-06-29] MEDS: Piperacillin/Tazobactam 3.375 GM in D5% in Water (Mini-Bag+) 100 ML IVPB SCH (21:01)
[2017-06-29] MEDS: Chlorhexidine Rinse 15 ML MOUTHWASH MM SCH (21:02)
[2017-06-29] MEDS: Phenylephrine 20 MG in D5% in Water 500 ML IVC SCH ×2 (21:03→22:42)
[2017-06-29 22:43] LABS: ABG Base Excess -12 mEq/L (-2 to 3); ABG HCO3 14 mEq/L (21-27); ABG Oxygen Saturation 98 % (95-98); ABG PCO2 30 mmHg (35-45); ABG PH 7.28 pH Units (7.32-7.45); ABG PO2 112 mmHg (85-104); ABG TCO2 15 mEq/L (20-26)
[2017-06-30] MEDS: Phenylephrine 50 MG in D5% in Water 250 ML IVC SCH ×3 (00:31→12:29)
[2017-06-30] MEDS: Norepinephrine 4 MG in D5% in Water 250 ML IVC SCH ×7 (01:36→21:13)
[2017-06-30 01:43] LABS: Activated Partial Thrombo Time 286.8 Seconds (26.0-36.0)
[2017-06-30 01:47] LABS: Heparin anti-factor XA UFH 0.63 IU/mL (0.30-0.70)
[2017-06-30 04:24] LABS: ABG Base Excess -12 mEq/L (-2 to 3); ABG HCO3 14 mEq/L (21-27); ABG Oxygen Saturation 98 % (95-98); ABG PCO2 29 mmHg (35-45); ABG PH 7.27 pH Units (7.32-7.45); ABG PO2 114 mmHg (85-104); ABG TCO2 15 mEq/L (20-26); Blood Gas Modality VC; Blood Gas PEEP 5 cm H2O; Blood Gas Respiration Rate 12; Blood Gas VT 500 cc
[2017-06-30] MEDS: Lacri-Lube 3.5 GM TUBE BOTH EYES SCH ×5 (04:55→21:01)
[2017-06-30 05:02] LABS: INR 2.5
[2017-06-30 05:03] LABS: Basophils % 0.2 %; Hemoglobin 10.6 g/dL (11.5-15.4)
[2017-06-30 05:04] LABS: Basophils # 0.1 K/mcL (0.0-0.2); Hematocrit 33.4 % (35.3-44.9); Immature Granulocytes % 1.5 % (0-4); Lymphocytes # 1.3 K/mcL (0.6-4.6); Lymphocytes % 4.1 %; Mean Corpuscular HGB Conc 31.7 g/dL (31.6-35.5); Mean Corpuscular Hemoglobin 26.9 pg (28.0-33.3); Mean Corpuscular Volume 84.8 fL (83.0-100.0); Mean Platelet Volume 10.1 fL (9.4-12.4); Monocytes % 3.1 %; Platelet Count 273 K/mcL (140-400); Red Blood Count 3.94 M/mcL (3.82-4.97); Red Cell Distribution Width 17.5 % (11.5-14.5); Segmented Neutrophils % 91.1 %
[2017-06-30 05:05] LABS: Ionized Calcium 0.95 mmol/L (1.15-1.35)
[2017-06-30 05:16] LABS: Neutrophils # 29.2 K/mcL (1.6-8.9)
[2017-06-30 05:17] LABS: Albumin/Globulin Ratio 0.6 (1.1-2.2); Bilirubin,Direct 0.6 mg/dL (0.0-0.5); Bilirubin,Indirect 0.2 mg/dL (0.0-1.2); Bilirubin,Total 0.8 mg/dL (0.2-1.2); Calcium 7.2 mg/dL (8.6-10.8); Globulin 3.4 g/dL (2.4-3.5); Magnesium 1.2 mg/dL (1.6-2.6); Potassium 3.3 mEq/L (3.5-4.5); Total Protein 5.4 g/dL (6.0-8.3)
[2017-06-30 05:21] LABS: Phosphorous 2.9 mg/dL (2.3-4.7)
[2017-06-30] MEDS ORDERED: Magnesium Sulfate 2 GM in D5% in Water 100 ML IVPB ONE (05:29)
[2017-06-30] MEDS ORDERED: *HR* Heparin 5,000 UNIT/ML VIAL IVP PRN ×2 (05:51)
[2017-06-30] MEDS: Heparin 25,000 UNIT/500 ML D5W 25,000 UNIT/500 ML MLS IVC SCH (05:59)
[2017-06-30 06:16] LABS: Platelet Estimate Normal (Normal); Toxic Granulation Present (Not Present)
[2017-06-30] MEDS ORDERED: Calcium Chloride 1,000 MG in 0.9 % Sodium Chloride 100 ML IVPB ONE (06:32)
[2017-06-30] MEDS: Piperacillin/Tazobactam 3.375 GM in D5% in Water (Mini-Bag+) 100 ML IVPB SCH ×2 (07:07→18:54)
[2017-06-30] MEDS: Pantoprazole 40 MG VIAL IVPB SCH (07:37)
[2017-06-30] MEDS: Chlorhexidine Rinse 15 ML MOUTHWASH MM SCH ×2 (07:37→21:01)
--- NOTE | 2017-06-30 07:52 | Nephrology Progress Note ---
Date of Encounter: 06/30/17 Time of Encounter: 07:50 - Assessment and Plan (1) ESRD (end stage renal disease) on dialysis Current Visit: Yes Status: Acute The patient will be placed on Sintia today. She is too hemodynamically unstable for intermittent hemodialysis. She will be maintained on a 4K dialysate. She will not have any neck negative fluid loss because of her hypotension. (2) Acute respiratory failure requiring reintubation Current Visit: Yes Status: Acute (3) Septic shock Current Visit: No Status: Resolved Subjective Interval history: The patient remains critically ill. She is sedated on the ventilator in the intensive care unit. She is on 3 vasopressors to help maintain blood pressure. She is getting more acidotic. She did not receive dialysis yesterday because she was too hemodynamically unstable. White count remains elevated. Cultures so far are negative. Troponin is elevated at 4.37. Objective - Vital Signs Vital signs: Vital Signs Temp Pulse Resp BP Pulse Ox 06/30/17 07:37 19 89/66 98 06/30/17 07:00 99.1 F 107 19 73/60 99 06/30/17 06:00 112 16 97/59 95 06/30/17 05:39 18 92/70 98 06/30/17 05:07 108 16 70/48 97 06/30/17 05:05 98.7 F 06/30/17 04:00 111 15 92/66 98 06/30/17 03:41 16 95/65 98 06/30/17 03:00 108 15 100/46 97 06/30/17 02:00 107 18 98/66 98 06/30/17 01:58 18 92/58 98 06/30/17 01:00 109 20 106/64 98 06/30/17 00:00 100.2 F H 108 18 108/74 97 06/29/17 23:49 18 103/70 98 06/29/17 23:46 108 06/29/17 23:00 108 19 76/64 97 06/29/17 22:12 17 92/62 97 06/29/17 22:00 105 18 92/62 97 06/29/17 21:00 107 17 80/54 96 06/29/17 20:09 98.4 F 06/29/17 20:00 108 15 74/51 96 06/29/17 19:46 16 78/57 96 06/29/17 19:00 108 14 92/58 96 06/29/17 18:23 14 90/60 94 06/29/17 18:00 111 14 72/52 94 06/29/17 17:02 14 90/60 94 06/29/17 17:00 130 15 90/60 94 06/29/17 16:34 142 06/29/17 16:00 135 14 82/39 94 06/29/17 15:30 99.2 F 06/29/17 15:29 142 06/29/17 15:15 13 90/62 96 06/29/17 15:00 142 14 98/51 95 06/29/17 14:10 106 15 85/58 97 06/29/17 13:18 16 93/80 100 06/29/17 13:00 118 16 85/64 96 06/29/17 12:00 102 12 97/61 100 06/29/17 11:00 71 12 105/58 99 06/29/17 10:30 72 12 91/74 99 06/29/17 10:25 70 06/29/17 10:20 14 49/35 95 Intake and Output 06/29/17 06/29/17 06/30/17 15:59 23:59 07:59 Intake Total 2254 / 2254 1560 / 1560 1465 / 1465 Output Total 0 / 0 725 / 725 Balance 2254 / 2254 1560 / 1560 740 / 740 Intake: IV Fluids 2254 / 2254 1560 / 1560 1465 / 1465 0.9 % Sodium Chloride 2,000 ML 1999 / 1999 As .ROUTE .STK-MED ONE Rx#: [id number] Vasostrict 40 UNIT In Dextrose 102 / 102 5% 100 ML @ 0.03 UNIT/MIN 4.59 mls/hr IV .[id number] JENNA Rx#: [id number] PRECEDEX Premix 400 mcg In 100 100 / 100 ml @ 0.2 MCG/KG/HR 6.365 mls/hr IVC .[id number] JENNA Rx#: [id number] Heparin 25,000 UNIT/500 ML D5W 100 / 100 25,000 unit In 500 ml @ 7.7 UNIT/KG/HR 19.604 mls/hr IVC . Q24H JENNA Rx#:[id number] Levophed 4 MG In Dextrose 5% 154 / 154 254 / 254 508 / 508 250 ML @ 10 MCG/MIN 38.1 mls/hr IVC CONT [facility] Rx#:[id number] Phenylephrine 50 MG In Dextrose 502 / 502 255 / 255 5% 250 ML @ 180 MCG/MIN 55.08 mls/hr IVC CONT [facility] Rx#: [id number] Phenylephrine 20 MG In Dextrose 502 / 502 502 / 502 5% 500 ML @ 100 MCG/MIN 150.6 mls/hr IVC CONT [facility] Rx#: [id number] Amiodarone Premix 150mg/100mL 100 / 100 150 mg In 100 ml @ 300 mls/hr IVPB ONCE ONE Rx#:[id number] Cubicin 1,000 MG In 0.9 % 100 / 100 Sodium Chloride 100 ML @ 200 mls/hr IVPB Q48H [facility] Rx#: [id number] Zosyn 3.375 GM In Dextrose 5% ( 100 / 100 Minibag+) 100 ML 100 ML @ 25 mls/hr IVPB Q12H [facility] Rx#: [id number] Oral 0 / 0 Output: Catheter 0 / 0 125 / 125 Gastric Drainage 600 / 600 Other: Weight 127.3 kg 129.9 kg Blood Glucose* 138 244 Patient Weight 06/30/17 23:59 Weight 129.9 kg - General Appearance Exam: Patient is sedated on the ventilator. She is on 3 vasopressors. Heart regular rate and rhythm with a 2/6 talk ejection murmur. Lungs coarse breath sounds. Abdomen shows diminished bowel sounds. There is no guarding or rigidity. There is no peripheral edema. There is a tunnel dialysis catheter in the right chest. - Lab 06/30/17 04:38 06/30/17 04:38 Most recent lab results ABG pH 7.27 pH Units (7.32-7.45) L 06/30/17 04:20 ABG pCO2 29 mmHg (35-45) L 06/30/17 04:20 ABG pO2 114 mmHg (85-104) H 06/30/17 04:20 ABG HCO3 14 mEq/L (21-27) L 06/30/17 04:20 ABG O2 Saturation 98 % (95-98) 06/30/17 04:20 Calcium 7.2 mg/dL (8.6-10.8) L 06/30/17 04:38 Phosphorus 2.9 mg/dL (2.3-4.7) 06/30/17 04:38 Magnesium 1.2 mg/dL (1.6-2.6) L 06/30/17 04:38 - VTE Documentation of Mechanical Device: Intermittent pneumatic compression device
[2017-06-30 08:34] LABS: Activated Partial Thrombo Time 141.7 Seconds (26.0-36.0)
[2017-06-30 08:46] LABS: Heparin anti-factor XA UFH 0.31 IU/mL (0.30-0.70)
[2017-06-30] MEDS: Dexmedetomidine HCl 400 MCG/100 ML MLS IVC SCH ×3 (09:20→21:11)
--- NOTE | 2017-06-30 09:27 | Procedure Note ---
<Daniel Garcia - Last Filed: 06/30/17 09:16> Date of procedure: 06/30/17 Pre-op diagnosis: Hypotension Post-op diagnosis: same Procedure: Arterial Catheter Placement: Written consent was obtained from the daughter. The left wrist was surveyed using ultrasound and the left radial artery was deemed reasonable target. The area was cleaned and draped in usual sterile fashion. Under ultrasound guidance the education needle was advanced into the left radial artery and bright red pulsatile blood flow was returned. The guidewire was advanced through the needle and into the artery without resistance. The needle was removed intact. The catheter was threaded over the guidewire and into the radial artery without difficulty. The guidewire was removed intact. No blood flow was noted from the catheter and when the catheter was done to the transducer no waveform was noted. At this time we decided to not attempt again given the patient's hypercoagulability issues on heparin drip. Pressure was applied to the area for greater than 10 minutes. The patient tolerated the procedure well, there are no consultations. Anesthesia: GETA Surgeon: Daniel Garcia Estimated blood loss (cc): 10 Pathology: none sent Condition: critical Disposition: ICU <Emily Smith - Last Filed: 06/30/17 15:58> Procedure: I examined this patient and my medical decision-making was reviewed with the Resident Physician. I agree with the documented findings, disposition and treatment plan as described except to the extent set forth below. Patient with hemodynamic instability she needed, A-line, however patient has gestational disease and suspect vascular disease and because she is on heparin drip avoid it to do a femoral line.
[2017-06-30] MEDS ORDERED: Dextrose Gel 15 GM PO PRN ×2 (09:44)
[2017-06-30] MEDS ORDERED: *HR* Dextrose 50 % in Water (Syg) 50 ML SYRINGE IVP PRN (09:44)
[2017-06-30] MEDS ORDERED: D5% in Water 1,000 ML IVC PRN (09:44)
--- NOTE | 2017-06-30 09:48 | Pulmonology Progress Note ---
<Daniel Garcia - Last Filed: 06/30/17 11:23> Date of Encounter: 06/30/17 Time of Encounter: 09:48 Assessment and Plan (1) Septic shock Current Visit: Yes Status: Acute Patient remains in septic shock requiring 3 pressors for blood pressure support. Urine remains the most likely source this time. Lactate has normalized. Cultures are pending. Continue broad-spectrum antibiotics. Continue with judicious fluid hydration in the setting of end-stage renal disease. Family did report that the patient has had episodes of nausea and vomiting with severe abdominal pain at the halfway prior to arrival. We will obtain a CT scan of the abdomen and pelvis for evaluation. (2) UTI (urinary tract infection) Current Visit: No Status: Acute As above. Cultures are pending. Continue antibiotics. Qualifiers: Urinary tract infection type: acute cystitis Hematuria presence: without hematuria Qualified Code(s): N30.00 - Acute cystitis without hematuria (3) ESRD (end stage renal disease) on dialysis Current Visit: Yes Status: Acute Patient has her normal Thursday dialysis sessions however family does report that she has missed some of these due to abdominal pain and nausea. Given the patient's hemodynamic instability nephrology as elected to institute continuous renal replacement therapy. Further management per nephrology. (4) Atrial fibrillation with RVR Current Visit: Yes Status: Acute Yesterday heart rate continued to increase to a peak of 150. EKGs revealed atrial fibrillation with rapid ventricular response. This is likely related to the patient's underlying infection as well as vasopressor use. Patient has been started on IV amiodarone. Cardiology has been consulted. Echocardiogram performed yesterday. (5) Decubital ulcer Current Visit: Yes Status: Acute Present on arrival. Does not appear infected. Qualifiers: Pressure ulcer location: sacral region Pressure ulcer stage: stage 2 Qualified Code(s): L89.152 - Pressure ulcer of sacral region, stage 2 (6) Elevated troponin Current Visit: Yes Status: Acute Continual rise with a peak at 4. Likely related to critical illness and demand ischemia related to septic shock and atrial fibrillation, however we have started the patient on heparin drip and has asked cardiology to evaluate patient. (7) Diabetes mellitus Current Visit: Yes Status: Acute Blood sugars have been elevated. Will institute sliding-scale insulin. Continue blood sugars. Patient remains nothing by mouth. Qualifiers: Diabetes mellitus type: type 2 Diabetes mellitus complication status: without complication Diabetes mellitus residential insulin use: unspecified residential insulin use status Qualified Code(s): E11.9 - Type 2 diabetes mellitus without complications Subjective Principal diagnosis: Septic shock Interval history: Patient seen and examined at bedside. She remains intubated and sedated. She continues to require 3 pressors for blood pressure support. She will open her eyes to verbal stimuli but does not follow commands. She does not appear to be in acute distress. Objective PUL Vital signs: Last Vital Signs Temp 99.1 F 06/30/17 08:49 Pulse 117 06/30/17 09:00 Resp 20 06/30/17 09:00 BP 92/53 06/30/17 09:00 Pulse Ox 96 06/30/17 09:00 Ventilator Settings Ventilator Settings: Ventilator Settings, Last 8 Hours Ventilator Mode VC+ Ventilator Mode VC+ Ventilator Mode VC+ Ventilator Mode VC+ Ventilator Mode VC+ Ventilator Mode VC+ Ventilator Mode VC+ Ventilator Mode VC+ Ventilator Mode VC+ Ventilator Tidal Volume 500 Setting Ventilator Tidal Volume 500 Setting Ventilator Tidal Volume 500 Setting Ventilator Tidal Volume 500 Setting Ventilator Tidal Volume 500 Setting Ventilator Tidal Volume 500 Setting Ventilator Tidal Volume 500 Setting Ventilator Tidal Volume 500 Setting Ventilator Tidal Volume 500 Setting Ventilator Respiratory Rate 12 Setting Ventilator Respiratory Rate 12 Setting Ventilator Respiratory Rate 12 Setting Ventilator Respiratory Rate 12 Setting Ventilator Respiratory Rate 12 Setting Ventilator Respiratory Rate 12 Setting Ventilator Respiratory Rate 12 Setting Ventilator Respiratory Rate 12 Setting Ventilator Respiratory Rate 12 Setting Actual Respiratory Rate 20 Actual Respiratory Rate 19 Actual Respiratory Rate 19 Actual Respiratory Rate 19 Actual Respiratory Rate 18 Actual Respiratory Rate 18 Actual Respiratory Rate 16 Actual Respiratory Rate 18 Positive End Expiratory 5 Pressure Positive End Expiratory 5 Pressure Positive End Expiratory 5 Pressure Positive End Expiratory 5 Pressure Positive End Expiratory 5 Pressure Positive End Expiratory 5 Pressure Positive End Expiratory 5 Pressure Positive End Expiratory 5 Pressure Positive End Expiratory 5 Pressure Peak Inspiratory Airway 21 Pressure Peak Inspiratory Airway 19 Pressure Peak Inspiratory Airway 21 Pressure Peak Inspiratory Airway 19 Pressure Peak Inspiratory Airway 21 Pressure Peak Inspiratory Airway 20 Pressure Peak Inspiratory Airway 22 Pressure Peak Inspiratory Airway 20 Pressure Results - Laboratory Findings CBC and BMP: 06/30/17 04:38 06/30/17 04:38 ABG ABG pH 7.27 pH Units (7.32-7.45) L 06/30/17 04:20 ABG pCO2 29 mmHg (35-45) L 06/30/17 04:20 ABG pO2 114 mmHg (85-104) H 06/30/17 04:20 ABG O2 Saturation 98 % (95-98) 06/30/17 04:20 PT/INR, D-dimer PT 28.0 Seconds (9.4-12.1) H 06/30/17 04:38 Abnormal lab findings: Abnormal lab results WBC 32.0 K/mcL (4.3-11.1) H* 06/30/17 04:38 Hgb 10.6 g/dL (11.5-15.4) L 06/30/17 04:38 Hct 33.4 % (35.3-44.9) L 06/30/17 04:38 MCH 26.9 pg (28.0-33.3) L 06/30/17 04:38 RDW 17.5 % (11.5-14.5) H 06/30/17 04:38 Neutrophils # 29.2 K/mcL (1.6-8.9) H 06/30/17 04:38 Toxic Granulation Present (Not Present) A 06/30/17 04:38 PT 28.0 Seconds (9.4-12.1) H 06/30/17 04:38 APTT 141.7 Seconds (26.0-36.0) H* D 06/30/17 07:47 ABG pH 7.27 pH Units (7.32-7.45) L 06/30/17 04:20 ABG pCO2 29 mmHg (35-45) L 06/30/17 04:20 ABG pO2 114 mmHg (85-104) H 06/30/17 04:20 ABG HCO3 14 mEq/L (21-27) L 06/30/17 04:20 ABG Total CO2 15 mEq/L (20-26) L 06/30/17 04:20 ABG Base Excess -12 mEq/L (-2 to 3) L 06/30/17 04:20 Sodium 124 mEq/L (136-145) L D 06/30/17 04:38 Potassium 3.3 mEq/L (3.5-4.5) L 06/30/17 04:38 Chloride 97 mEq/L (98-109) L 06/30/17 04:38 Carbon Dioxide 13 mEq/L (19-29) L 06/30/17 04:38 BUN 63 mg/dL (7-20) H 06/30/17 04:38 Creatinine 4.03 mg/dL (0.57-1.11) H 06/30/17 04:38 Est GFR ( Amer) 13 (> 60) L 06/30/17 04:38 Est GFR (Non-Af Amer) 11 (> 60) L 06/30/17 04:38 Glucose 174 mg/dL (70-99) H 06/30/17 04:38 POC Glucose 244 (58-89) H 06/29/17 23:59 Lactic Acid 2.6 mmol/L (0.5-2.2) H 06/29/17 22:30 Calcium 7.2 mg/dL (8.6-10.8) L 06/30/17 04:38 Ionized Calcium 0.95 mmol/L (1.15-1.35) L 06/30/17 04:38 Magnesium 1.2 mg/dL (1.6-2.6) L 06/30/17 04:38 Direct Bilirubin 0.6 mg/dL (0.0-0.5) H 06/30/17 04:38 AST 83 Units/L (5-34) H 06/30/17 04:38 Alkaline Phosphatase 265 Units/L (38-126) H 06/30/17 04:38 Troponin I 4.37 ng/mL (0-0.03) H* 06/30/17 06:54 Serum Total Protein 5.4 g/dL (6.0-8.3) L 06/30/17 04:38 Albumin 2.0 g/dL (3.5-5.0) L 06/30/17 04:38 Albumin/Globulin Ratio 0.6 (1.1-2.2) L 06/30/17 04:38 Salicylates < 5.0 mg/dL (15-30) L 06/29/17 11:15 Acetaminophen < 1.0 mcg/mL (10-30) L 06/29/17 11:15 - Microbiology Findings Microbiology Findings: Microbiology, Last 48 Hours 06/29/17 15:05 Sputum Culture - Preliminary Sputum - Clinical Findings Intake & Output: Intake & Output 06/29/17 06/30/17 06/30/17 23:59 07:59 15:59 Intake Total 1560 / 1560 1998 360 / 360 Output Total 775 / 775 50 / 50 Balance 1560 / 1560 1224 / 1224 310 / 310 Weight 129.9 kg - VTE Documentation of Mechanical Device: Intermittent pneumatic compression device Consult Discharge Plan - Plan Referrals: NONE,PCP [Primary Care Provider] - <Emily Smith - Last Filed: 06/30/17 16:10> Date of Encounter: 06/30/17 Objective PUL Vital signs: Last Vital Signs Temp 98.1 F 06/30/17 15:00 Pulse 89 06/30/17 16:00 Resp 13 06/30/17 16:00 BP 100/75 06/30/17 16:00 Pulse Ox 97 06/30/17 16:00 Ventilator Settings Ventilator Settings: Ventilator Settings, Last 8 Hours Ventilator Mode VC+ Ventilator Mode VC+ Ventilator Mode VC+ Ventilator Mode VC+ Ventilator Mode VC+ Ventilator Mode VC+ Ventilator Mode VC+ Ventilator Mode VC+ Ventilator Mode VC+ Ventilator Mode VC+ Ventilator Mode VC+ Ventilator Mode VC+ Ventilator Tidal Volume 500 Setting Ventilator Tidal Volume 500 Setting Ventilator Tidal Volume 500 Setting Ventilator Tidal Volume 500 Setting Ventilator Tidal Volume 500 Setting Ventilator Tidal Volume 500 Setting Ventilator Tidal Volume 500 Setting Ventilator Tidal Volume 500 Setting Ventilator Tidal Volume 500 Setting Ventilator Tidal Volume 500 Setting Ventilator Tidal Volume 500 Setting Ventilator Tidal Volume 500 Setting Ventilator Respiratory Rate 12 Setting Ventilator Respiratory Rate 12 Setting Ventilator Respiratory Rate 12 Setting Ventilator Respiratory Rate 12 Setting Ventilator Respiratory Rate 12 Setting Ventilator Respiratory Rate 12 Setting Ventilator Respiratory Rate 12 Setting Ventilator Respiratory Rate 12 Setting Ventilator Respiratory Rate 12 Setting Ventilator Respiratory Rate 12 Setting Ventilator Respiratory Rate 12 Setting Ventilator Respiratory Rate 12 Setting Actual Respiratory Rate 13 Actual Respiratory Rate 13 Actual Respiratory Rate 16 Actual Respiratory Rate 13 Actual Respiratory Rate 18 Actual Respiratory Rate 19 Actual Respiratory Rate 18 Actual Respiratory Rate 19 Actual Respiratory Rate 20 Actual Respiratory Rate 18 Actual Respiratory Rate 20 Actual Respiratory Rate 20 Positive End Expiratory 5 Pressure Positive End Expiratory 5 Pressure Positive End Expiratory 5 Pressure Positive End Expiratory 5 Pressure Positive End Expiratory 5 Pressure Positive End Expiratory 5 Pressure Positive End Expiratory 5 Pressure Positive End Expiratory 5 Pressure Positive End Expiratory 5 Pressure Positive End Expiratory 5 Pressure Positive End Expiratory 5 Pressure Positive End Expiratory 5 Pressure Peak Inspiratory Airway 23 Pressure Peak Inspiratory Airway 23 Pressure Peak Inspiratory Airway 23 Pressure Peak Inspiratory Airway 22 Pressure Peak Inspiratory Airway 21 Pressure Peak Inspiratory Airway 19 Pressure Peak Inspiratory Airway 19 Pressure Peak Inspiratory Airway 19 Pressure Peak Inspiratory Airway 18 Pressure Peak Inspiratory Airway 20 Pressure Peak Inspiratory Airway 19 Pressure Peak Inspiratory Airway 21 Pressure Results - Laboratory Findings CBC and BMP: 06/30/17 04:38 06/30/17 04:38 ABG ABG pH 7.27 pH Units (7.32-7.45) L 06/30/17 04:20 ABG pCO2 29 mmHg (35-45) L 06/30/17 04:20 ABG pO2 114 mmHg (85-104) H 06/30/17 04:20 ABG O2 Saturation 98 % (95-98) 06/30/17 04:20 PT/INR, D-dimer PT 28.0 Seconds (9.4-12.1) H 06/30/17 04:38 Abnormal lab findings: Abnormal lab results WBC 32.0 K/mcL (4.3-11.1) H* 06/30/17 04:38 Hgb 10.6 g/dL (11.5-15.4) L 06/30/17 04:38 Hct 33.4 % (35.3-44.9) L 06/30/17 04:38 MCH 26.9 pg (28.0-33.3) L 06/30/17 04:38 RDW 17.5 % (11.5-14.5) H 06/30/17 04:38 Neutrophils # 29.2 K/mcL (1.6-8.9) H 06/30/17 04:38 Toxic Granulation Present (Not Present) A 06/30/17 04:38 PT 28.0 Seconds (9.4-12.1) H 06/30/17 04:38 APTT 104.9 Seconds (26.0-36.0) H 06/30/17 13:44 ABG pH 7.27 pH Units (7.32-7.45) L 06/30/17 04:20 ABG pCO2 29 mmHg (35-45) L 06/30/17 04:20 ABG pO2 114 mmHg (85-104) H 06/30/17 04:20 ABG HCO3 14 mEq/L (21-27) L 06/30/17 04:20 ABG Total CO2 15 mEq/L (20-26) L 06/30/17 04:20 ABG Base Excess -12 mEq/L (-2 to 3) L 06/30/17 04:20 Sodium 124 mEq/L (136-145) L D 06/30/17 04:38 Potassium 3.3 mEq/L (3.5-4.5) L 06/30/17 04:38 Chloride 97 mEq/L (98-109) L 06/30/17 04:38 Carbon Dioxide 13 mEq/L (19-29) L 06/30/17 04:38 BUN 63 mg/dL (7-20) H 06/30/17 04:38 Creatinine 4.03 mg/dL (0.57-1.11) H 06/30/17 04:38 Est GFR ( Amer) 13 (> 60) L 06/30/17 04:38 Est GFR (Non-Af Amer) 11 (> 60) L 06/30/17 04:38 Glucose 174 mg/dL (70-99) H 06/30/17 04:38 POC Glucose 180 (58-89) H 06/30/17 10:39 Lactic Acid 2.6 mmol/L (0.5-2.2) H 06/29/17 22:30 Calcium 7.2 mg/dL (8.6-10.8) L 06/30/17 04:38 Ionized Calcium 0.95 mmol/L (1.15-1.35) L 06/30/17 04:38 Magnesium 1.2 mg/dL (1.6-2.6) L 06/30/17 04:38 Direct Bilirubin 0.6 mg/dL (0.0-0.5) H 06/30/17 04:38 AST 83 Units/L (5-34) H 06/30/17 04:38 Alkaline Phosphatase 265 Units/L (38-126) H 06/30/17 04:38 Creatine Kinase 780 Units/L (29-168) H D 06/30/17 13:40 Troponin I 5.07 ng/mL (0-0.03) H* 06/30/17 13:45 Serum Total Protein 5.4 g/dL (6.0-8.3) L 06/30/17 04:38 Albumin 2.0 g/dL (3.5-5.0) L 06/30/17 04:38 Albumin/Globulin Ratio 0.6 (1.1-2.2) L 06/30/17 04:38 Salicylates < 5.0 mg/dL (15-30) L 06/29/17 11:15 Acetaminophen < 1.0 mcg/mL (10-30) L 06/29/17 11:15 - Microbiology Findings Microbiology Findings: Microbiology, Last 48 Hours 06/29/17 15:05 Sputum Culture - Preliminary Sputum Yeast Species - Clinical Findings Intake & Output: Intake & Output 06/30/17 06/30/17 06/30/17 07:59 15:59 23:59 Intake Total 1998 1617 / 1617 Output Total 775 / 775 464 / 464 Balance 1224 / 1224 1153 / 1153 Weight 129.9 kg - Attending Attestation I examined this patient and my medical decision-making was reviewed with the Resident Physician. I agree with the documented findings, disposition and treatment plan as described except to the extent set forth below. Patient seen and examined. Labs, radiology, chart personally reviewed. Agree with resident's history and physical, assessment, plan with following comments: [employer]: Patient follows commands, she remained sedated for the vent synchrony. Pulmonary: Patient is not stable hemodynamically for the spontaneous breathing trial. Continue vent support and changed vent setting based on the ABG result. Cardiovascular: Patient is not stable hemodynamically and discussed with the director of marketing communications and appreciate the input. I still suspect she might have cardiac events, however is complicated with her indices renal disease and septic shock. GI: Nutrition per dietary and GI prophylaxis per routine Heme: DVT prophylaxis per routine. Patient is on heparin drip. ID: Continue antibiotics and plan to de-escalation. Patient with septic shock and she is requiring more vasopressors which is a poor prognostic sign. Renal; urine out put and renal funtion reviewed Endorcine: blood glucose is monitored Lines: all lines checked and no evidence of infections Skin: skin care to prevent pressure ulcers per nursing routine care Family has been updated. I spent 45 min of Critical Care time with this patient. It involved decision making of high complexity to assess, manipulate, and support vital organ system failure and/or to prevent further life threatening deterioration of the patient' s condition. The time involved in the performance of separately reportable procedures was not counted toward critical care time.
--- NOTE | 2017-06-30 09:58 | Cardiology Consult Note ---
<Lon Moserson - Last Filed: 06/30/17 11:39> Date of Encounter: 06/30/17 Time of Encounter: 09:56 Assessment and Plan (1) Elevated troponin Current Visit: Yes Status: Acute demand ischemia vs underlying ACS vs CKD. Trops 0.02, 0.10, 2.80, 3.98 and 4.37. Patient is currently in septic shock on 3 pressors w/ hx of ESRD on HD, afib, and CHF. EKG x3: Afib w/ RVR. 05/03/17 - echo LVEF 45-50%, 06/29/17 - echo LVEF 70%. - Patient is currently not stable enough for intervention, cards will continue to follow - retro trend CK - continue to trend Troponins (2) Atrial fibrillation with RVR Current Visit: Yes Status: Acute EKG x3 shows Afib w/RVR. Patient has known history of Afib, at home she's on metoprolol xl for rate control, and warfarin for anti-coagulation. On admission , due to CHF was started on Amiodarone for rhythm control and heparin for anti- coagulation. Patient HR remains >100. Currently clinically unstable. - continue heparin for anticoagulation - continue amiodarone for rhythm control (3) Septic shock Current Visit: Yes Status: Acute per management of ICU team (4) ESRD (end stage renal disease) on dialysis Current Visit: Yes Status: Acute per management of nephrology team Discussion w patient/family: The assessment and plan as outlined above was discussed with the patient and/or family members who expressed understanding and agreement. All questions were answered. Thank you for involving us in the care of your patient. Please call with any questions. History of Present Illness Consult date: 06/30/17 Requesting physician: Daniel Garcia Consult reason: elevated troponins Chief complaint: found unresponsive History of present illness: Ms. Wei is a 72 year old female found unresponsive, in afib w/ RVR and elevating troponins since admission. Patient is currently in septic shock intubated and on 3 pressors with a Hx of afib controlled w/ metoprolol xl, COPD , HTN , cardiomyopathies, ESRD on HD, and CHF. Per records, Patient was conversing with staff at 3 pm yesterday at her skilled nursing. During nursing rounds patient was found down and unresponsive. Patient's HR since admission > 100 and was started on amiodarone for rhythm control. Trops continue to rise, and EKG shows afib w/ RVR. Heparin started for afib. Patient is currently on 3 pressors with MAP ~65. Patient was determined to be too unstable to undergo dialysis yesterday, and started on renal replacement. Past Med Surg Social Fam HX - Past Medical History Medical history: arthritis, COPD, GERD, hypertension, osteoporosis Psychiatric history: ADHD, depression - Past Surgical History Surgical History: other - Social History Smoking Status: Never smoker Smokeless Tobacco Status: No Alcohol use: none Drug use: none - Family History Mother History Unknown: Yes Living Status: Hx Family Cardiac Disorders: Yes Hx Family Endocrine Disorder: Yes (Diabetes) Medications and Allergies Alendronate Sodium [Fosamax] 70 mg PO QWEEK 02/13/16 [History] Calcium Carb/Vitamin D3/Vit K1 [Calcium + D Soft Chewable Tab] 1 mg PO DAILY 04/22 [History] Amitriptyline [Elavil] 25 mg PO DAILY 04/28/17 [History] DULoxetine [Cymbalta] 30 mg PO BID 04/28/17 [History] HYDROcodone/Acet 7.5/325 mg [[place] 7.5-325 mg] 1 tab PO Q6H 04/28/17 [History] Trazodone HCl 100 mg PO BID 04/28/17 [History] Metoprolol XL (24 HR) Succ [Toprol Xl] 12.5 mg PO BID #60 05/12/17 [Rx] Bisacodyl [Dulcolax] 10 mg RC DAILY PRN 06/29/17 [History] Dicyclomine [Bentyl] 10 mg PO QID 06/29/17 [History] Docusate Sodium [Dok] 100 mg PO BID 06/29/17 [History] Gabapentin [Neurontin] 100 mg PO BID 06/29/17 [History] Linaclotide [Linzess] 145 mcg PO DAILY 06/29/17 [History] Lubiprostone [Amitiza] 24 mcg PO BID 06/29/17 [History] Mirtazapine [Remeron] 15 mg PO HS 06/29/17 [History] Ondansetron HCl [Zofran] 4 mg PO Q6H PRN 06/29/17 [History] Oxybutynin [Ditropan] 5 mg PO DAILY 06/29/17 [History] Ranitidine HCl [Zantac 75] 75 mg PO BID 06/29/17 [History] Renal Vitamin [Renal Caps Softgel] 1 mg PO DAILY 06/29/17 [History] Sertraline [Zoloft] 50 mg PO DAILY 06/29/17 [History] Warfarin [Coumadin] 1.5 mg PO Q48H 06/29/17 [History] Warfarin [Coumadin] 2 mg PO Q48H 06/29/17 [History] 3 Allergy/AdvReac Type Severity Reaction Status Date / Time ibuprofen [From Motrin] AdvReac Nausea Verified 02/13/16 10:46 ROS unobtainable: due to endotracheal tube, due to mental status All Systems Review: A 10-system review of systems was performed and is negative for pertinent findings except as documented above in the HPI. Physical Examination Vital Signs, Last 4 Hours Temp Pulse Resp BP Pulse Ox 06/30/17 09:00 117 20 92/53 96 06/30/17 08:49 99.1 F 06/30/17 08:00 113 19 84/55 98 06/30/17 07:37 19 89/66 98 06/30/17 07:00 99.1 F 107 19 73/60 99 06/30/17 06:00 112 16 97/59 95 General: Other (sedated) Neck: Other (unable to evaluate carotid pulses due to body habitus) Cardiac: Normal S1 and S2, No Murmur, Other (tachy) Lungs: Normal Breath Sounds, No Wheeze, Rales, Rhonchi Neuro: Other (sedated) Abdomen: Soft Extremities: No Clubbing, No Cyanosis, Other (1/4 edema BLE. Dorsalis Pedis pulses bilaterally equal on doppler. Extremities were cold to touch) Results 06/30/17 04:38 06/30/17 04:38 Lab Results 06/29/17 06/29/17 06/29/17 11:15 11:15 17:01 WBC Hgb Hct Plt Count INR APTT Sodium 131 L Potassium 4.0 Chloride 103 Carbon Dioxide 15 L BUN 61 H Creatinine 4.40 H Glucose 144 H Calcium 8.0 L D Magnesium 1.5 L Total Bilirubin AST ALT Alkaline Phosphatase Troponin I 0.10 H* 2.80 H* 06/29/17 06/29/17 06/29/17 18:37 18:37 22:30 WBC 32.4 H* D Hgb 11.5 Hct 35.5 Plt Count 306 INR 1.9 APTT 35.7 Sodium Potassium Chloride Carbon Dioxide BUN Creatinine Glucose Calcium Magnesium Total Bilirubin AST ALT Alkaline Phosphatase Troponin I 3.98 H* 06/30/17 06/30/17 06/30/17 01:00 04:38 04:38 WBC 32.0 H* Hgb 10.6 L Hct 33.4 L Plt Count 273 INR 2.5 APTT 286.8 H* D Sodium Potassium Chloride Carbon Dioxide BUN Creatinine Glucose Calcium Magnesium Total Bilirubin AST ALT Alkaline Phosphatase Troponin I 06/30/17 06/30/17 06/30/17 04:38 06:54 07:47 WBC Hgb Hct Plt Count INR APTT 141.7 H* D Sodium 124 L D Potassium 3.3 L Chloride 97 L Carbon Dioxide 13 L BUN 63 H Creatinine 4.03 H Glucose 174 H Calcium 7.2 L Magnesium 1.2 L Total Bilirubin 0.8 AST 83 H ALT 39 Alkaline Phosphatase 265 H Troponin I 4.37 H* Consult Discharge Plan - Plan Referrals: NONE,PCP [Primary Care Provider] - <Yuri Ibarra - Last Filed: 06/30/17 15:20> Date of Encounter: 06/30/17 - Attending Attestation I examined this patient and my medical decision-making was reviewed with the Resident Physician. I agree with the documented findings, disposition and treatment plan as described except to the extent set forth below. 72 year old female found unresponsive, in afib w/ RVR and elevating troponins since admission. Patient is currently in septic shock intubated and on 3 pressors with an ECHO revealing a preserved EF and no significant valve abnormalities. Her troponin do have an ischemic pattern but in the setting of HD. Initial CK was not elevated, repeats are pending. Currently in NSR on amiodarone. Likely she may have underlying CAD and this may represent demand ischemia. EKG with no ichemic changes. Will follow along Assessment and Plan Discussion w patient/family: The assessment and plan as outlined above was discussed with the patient and/or family members who expressed understanding and agreement. All questions were answered. Thank you for involving us in the care of your patient. Please call with any questions. History of Present Illness History of present illness: Ms. Wei is a 72 year old female All Systems Review: A 10-system review of systems was performed and is negative for pertinent findings except as documented above in the HPI. Physical Examination Vital Signs, Last 4 Hours Temp Pulse Resp BP Pulse Ox 06/30/17 15:00 98.1 F 90 16 105/34 95 06/30/17 14:00 106 13 89/57 97 06/30/17 13:50 18 86/71 94 06/30/17 13:00 108 19 93/70 100 06/30/17 12:00 108 19 93/70 100 Results 06/30/17 04:38 06/30/17 04:38 Lab Results 06/29/17 06/29/17 06/29/17 17:01 18:37 18:37 WBC 32.4 H* D Hgb 11.5 Hct 35.5 Plt Count 306 INR 1.9 APTT 35.7 Sodium Potassium Chloride Carbon Dioxide BUN Creatinine Glucose Calcium Magnesium Total Bilirubin AST ALT Alkaline Phosphatase Troponin I 2.80 H* 06/29/17 06/30/17 06/30/17 22:30 01:00 04:38 WBC 32.0 H* Hgb 10.6 L Hct 33.4 L Plt Count 273 INR APTT 286.8 H* D Sodium Potassium Chloride Carbon Dioxide BUN Creatinine Glucose Calcium Magnesium Total Bilirubin AST ALT Alkaline Phosphatase Troponin I 3.98 H* 06/30/17 06/30/17 06/30/17 04:38 04:38 06:54 WBC Hgb Hct Plt Count INR 2.5 APTT Sodium 124 L D Potassium 3.3 L Chloride 97 L Carbon Dioxide 13 L BUN 63 H Creatinine 4.03 H Glucose 174 H Calcium 7.2 L Magnesium 1.2 L Total Bilirubin 0.8 AST 83 H ALT 39 Alkaline Phosphatase 265 H Troponin I 4.37 H* 06/30/17 06/30/17 06/30/17 07:47 13:44 13:45 WBC Hgb Hct Plt Count INR APTT 141.7 H* D 104.9 H Sodium Potassium Chloride Carbon Dioxide BUN Creatinine Glucose Calcium Magnesium Total Bilirubin AST ALT Alkaline Phosphatase Troponin I 5.07 H*
[2017-06-30] MEDS: Vasopressin 40 UNIT in D5% in Water 100 ML IV SCH (10:42)
[2017-06-30] MEDS: Amiodarone Premix 360 MG/200 ML BAG IVC SCH ×2 (10:54→23:00)
[2017-06-30] MEDS: Insulin LISPRO 300 UNITS/3 ML VIAL SQ SCH ×2 (11:22→17:21)
[2017-06-30] MEDS: PrismaSATE BGK 4/2.5 5,000 ML CRRT SCH ×4 (12:24→20:22)
[2017-06-30] MEDS: 0.9 % Sodium Chloride 1,000 ML PRIME SCH ×2 (12:24→20:21)
[2017-06-30] MEDS ORDERED: *HR* Midazolam HCl 2 MG/2 ML VIAL ONE (14:39)
[2017-06-30] MEDS: *HR* Midazolam HCl 2 MG/2 ML VIAL IVP PRN (14:42)
--- NOTE | 2017-06-30 16:03 | Electrocardiograph Report ---
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
[2017-06-30] MEDS ORDERED: Aspirin 325 MG TABLET PO ONE (16:18)
[2017-06-30] MEDS ORDERED: Aspirin 81 MG TAB.CHEW ONE (16:22)
[2017-06-30 21:24] LABS: Activated Partial Thrombo Time 295.7 Seconds (26.0-36.0)
[2017-06-30 21:39] LABS: Heparin anti-factor XA UFH 0.35 IU/mL (0.30-0.70)
[2017-07-01] MEDS: Insulin LISPRO 300 UNITS/3 ML VIAL SQ SCH ×4 (00:22→17:50)
[2017-07-01] MEDS: Lacri-Lube 3.5 GM TUBE BOTH EYES SCH ×6 (00:26→21:11)
[2017-07-01] MEDS: PrismaSATE BGK 4/2.5 5,000 ML CRRT SCH ×7 (01:13→22:20)
[2017-07-01] MEDS: *HR* FentaNYL (PF) 100 MCG/2 ML VIAL IVP PRN (01:13)
[2017-07-01] MEDS ORDERED: *HR* Digoxin 0.5 MG/2 ML AMPUL IVP ONE (01:27)
[2017-07-01] MEDS: Norepinephrine 8 MG in D5% in Water 500 ML IVC SCH ×4 (01:39→22:47)
[2017-07-01] MEDS: Dexmedetomidine HCl 400 MCG/100 ML MLS IVC SCH ×6 (01:40→22:46)
[2017-07-01 01:54] LABS: VBG HCO3 21 mEq/L (21-27); VBG PCO2 48 mmHg (41-51); VBG PH 7.24 pH Units (7.32-7.42); VBG PO2 31 mmHg (25-50)
[2017-07-01 02:00] LABS: Calcium 7.2 mg/dL (8.6-10.8); Magnesium 1.6 mg/dL (1.6-2.6); Potassium 3.4 mEq/L (3.5-4.5)
[2017-07-01] MEDS: Heparin 25,000 UNIT/500 ML D5W 25,000 UNIT/500 ML MLS IVC SCH ×2 (02:16→04:15)
[2017-07-01] MEDS: 0.9 % Sodium Chloride 1,000 ML PRIME SCH ×2 (02:16→21:11)
[2017-07-01] MEDS ORDERED: Magnesium Sulfate 2 GM in D5% in Water 100 ML IVPB ONE (02:19)
[2017-07-01 03:35] LABS: ABG Base Excess -7 mEq/L (-2 to 3); ABG HCO3 19 mEq/L (21-27); ABG Oxygen Saturation 98 % (95-98); ABG PCO2 37 mmHg (35-45); ABG PH 7.31 pH Units (7.32-7.45); ABG PO2 120 mmHg (85-104); ABG TCO2 20 mEq/L (20-26); Blood Gas Modality VC; Blood Gas VT 500 cc
[2017-07-01 05:27] LABS: Basophils % 0.2 %; Lymphocytes % 2.3 %
[2017-07-01 05:29] LABS: Basophils # 0.1 K/mcL (0.0-0.2); Eosinophils % 0.1 %; Hematocrit 30.6 % (35.3-44.9); Hemoglobin 10.4 g/dL (11.5-15.4); Lymphocytes # 0.7 K/mcL (0.6-4.6); Mean Corpuscular Hemoglobin 27.7 pg (28.0-33.3); Mean Corpuscular Volume 81.4 fL (83.0-100.0); Mean Platelet Volume 10.1 fL (9.4-12.4); Monocytes # 0.7 K/mcL (0.0-1.3); Monocytes % 2.4 %; Neutrophils # 25.9 K/mcL (1.6-8.9); Platelet Count 191 K/mcL (140-400); Red Blood Count 3.76 M/mcL (3.82-4.97); Red Cell Distribution Width 17.6 % (11.5-14.5)
[2017-07-01 05:47] LABS: Albumin 1.7 g/dL (3.5-5.0); Albumin/Globulin Ratio 0.6 (1.1-2.2); Bilirubin,Direct 0.5 mg/dL (0.0-0.5); Bilirubin,Indirect 0.2 mg/dL (0.0-1.2); Bilirubin,Total 0.7 mg/dL (0.2-1.2); Calcium 7.4 mg/dL (8.6-10.8); Magnesium 2.1 mg/dL (1.6-2.6); Phosphorous 2.3 mg/dL (2.3-4.7); Potassium 3.7 mEq/L (3.5-4.5); Total Protein 4.7 g/dL (6.0-8.3)
[2017-07-01 05:59] LABS: Hypersegmented Neutrophils Present (Not Present); Toxic Granulation Present (Not Present)
[2017-07-01 06:00] LABS: Large Platelets Present (Not Present)
[2017-07-01] MEDS ORDERED: Fluconazole 400 MG/200 ML 400 MG/200 ML BAG IVPB ONE (06:08)
[2017-07-01] MEDS: Piperacillin/Tazobactam 3.375 GM in D5% in Water (Mini-Bag+) 100 ML IVPB SCH ×3 (06:17→23:37)
[2017-07-01 06:22] LABS: INR 2.7; Prothrombin Time 29.4 Seconds (9.4-12.1)
[2017-07-01 06:24] LABS: Thyroid Stimulating Hormone 1.231 mcIU/mL (0.350-4.840)
--- NOTE | 2017-07-01 07:54 | Nephrology Progress Note ---
Date of Encounter: 07/01/17 Time of Encounter: 07:52 - Assessment and Plan (1) ESRD (end stage renal disease) on dialysis Current Visit: Yes Status: Acute The patient will continue on CVVH with the current regimen. She will have no net fluid removal because she is hemodynamically unstable. (2) Acute respiratory failure requiring reintubation Current Visit: Yes Status: Acute Subjective Principal diagnosis: Septic shock Interval history: The patient remains critically ill. She is sedated on the ventilator in the intensive care unit. The patient is on several vasopressors to maintain blood pressure. She was started on CVVH yesterday. Negative fluid removal is 0. She remains hypotensive and critically ill. She also has become hypothermic and requires a warming blanket. White count is slightly improved. Blood cultures remain negative. Objective - Vital Signs Vital signs: Vital Signs Temp Pulse Resp BP Pulse Ox 07/01/17 07:42 146 07/01/17 06:56 95.3 F L 124 15 66/40 97 07/01/17 06:00 94.4 F L 138 14 73/55 97 07/01/17 05:30 16 90/61 97 07/01/17 05:00 93.8 F L 126 15 90/61 97 07/01/17 04:00 92.5 F L 122 15 100/77 99 07/01/17 03:49 115 07/01/17 03:45 13 100/77 98 07/01/17 03:00 92.4 F L 101 14 98/60 96 07/01/17 02:00 92.8 F L 126 12 84/68 94 07/01/17 01:25 12 85/59 95 07/01/17 01:00 81 12 95/64 98 07/01/17 00:00 96.9 F L 77 14 106/70 97 06/30/17 23:05 13 111/83 100 06/30/17 23:00 89 12 111/83 94 06/30/17 22:00 89 13 75/65 100 06/30/17 21:25 13 83/72 100 06/30/17 21:00 81 15 83/71 100 06/30/17 20:00 94 F L 89 15 72/40 100 06/30/17 19:45 14 101/74 100 06/30/17 19:00 85 14 111/92 93 06/30/17 18:00 85 14 111/92 93 06/30/17 17:00 96.9 F L 88 14 101/66 97 06/30/17 16:00 89 13 100/75 97 06/30/17 15:50 89 06/30/17 15:49 15 108/78 98 06/30/17 15:00 98.1 F 90 16 105/34 95 06/30/17 14:00 106 13 89/57 97 06/30/17 13:50 18 86/71 94 06/30/17 13:00 108 19 93/70 100 06/30/17 12:00 108 19 93/70 100 06/30/17 11:12 20 98/74 94 06/30/17 11:10 123 06/30/17 11:00 99.4 F 123 20 98/74 93 06/30/17 10:22 19 70/40 98 06/30/17 10:00 122 20 98/74 94 06/30/17 09:00 117 20 92/53 96 06/30/17 08:49 99.1 F 06/30/17 08:00 113 19 84/55 98 Intake and Output 06/30/17 06/30/17 07/01/17 15:59 23:59 07:59 Intake Total 1617 / 1617 1590.0 / 1590.0 1169.9 / 1169.9 Output Total 464 / 464 1094 / 1094 1072 / 1072 Balance 1153 / 1153 496.0 / 496.0 97.9 / 97.9 Intake: IV Fluids 1367 / 1367 1590.0 / 1590.0 1169.9 / 1169.9 PrismaSATE BGK 4/2.5 5,000 ML @ 0 / 0 0 / 0 2000 mls/hr CRRT CONT [facility] Rx#: [id number] Vasostrict 40 UNIT In Dextrose 102 / 102 58.6 / 58.6 29.8 / 29.8 5% 100 ML @ 0.03 UNIT/MIN 4.59 mls/hr IV .[id number] [facility] Rx#: [id number] Amiodarone Drip Premix 360mg/ 200 / 200 213.5 / 213.5 111.3 / 111.3 200mL 360 mg In 200 ml @ 0.5 MG /MIN 16.667 mls/hr IVC CONT [facility] Rx#:[id number] PRECEDEX Premix 400 mcg In 100 115 / 115 146.0 / 146.0 205.6 / 205.6 ml @ 0.2 MCG/KG/HR 6.365 mls/hr IVC .[id number] [facility] Rx#: [id number] Heparin 25,000 UNIT/500 ML D5W 137 / 137 4.9 / 4.9 25,000 unit In 500 ml @ 9 UNIT/ KG/HR 23.382 mls/hr IVC . [id number] [facility] Rx#:[id number] Levophed 4 MG In Dextrose 5% 428 / 428 948.1 / 948.1 106.3 / 106.3 250 ML @ 10 MCG/MIN 38.1 mls/hr IVC CONT [facility] Rx#:[id number] Levophed 8 MG In Dextrose 5% 379.2 / 379.2 500 ML @ 10 MCG/MIN 38.1 mls/hr IVC CONT [facility] Rx#:[id number] Phenylephrine 50 MG In Dextrose 175 / 175 11 / 11 5% 250 ML @ 180 MCG/MIN 55.08 mls/hr IVC CONT [facility] Rx#: [id number] Calcium Chloride 1,000 MG In 0. 110 / 110 9 % Sodium Chloride 100 ML @ 100 mls/hr IVPB ONCE ONE Rx#: [id number] Diflucan Premix 400 MG/200 ML 24.2 / 24.2 400 mg In 200 ml @ 200 mls/hr IVPB ONCE ONE Rx#:[id number] Magnesium Sulfate 2 GM In 107.7 / 107.7 Dextrose 5% 100 ML @ 100 mls/hr IVPB ONCE ONE Rx#:[id number] Zosyn 3.375 GM In Dextrose 5% ( 100 / 100 112.8 / 112.8 6.8 / 6.8 Minibag+) 100 ML 100 ML @ 25 mls/hr IVPB Q12H [facility] Rx#: [id number] Potassium Chloride 10 mEq/100mL 185.2 / 185.2 10 meq In 100 ml @ 100 mls/hr IVPB Q1H [facility] Rx#:[id number] Free Water 250 / 250 Output: Urine 15 / 15 Sintia 274 / 274 734 / 734 852 / 852 Catheter 140 / 140 310 / 310 205 / 205 Gastric Drainage 50 / 50 50 / 50 0 / 0 Other: Stool Size Moderate Smear Stool Consistency soft liquid formed Stool Characteristics Normal for Patient Stool Color Thony Colored Brown Yellow # Bowel Movements 3 1 Weight 133.2 kg Blood Glucose* 180 162 154 Patient Weight 07/01/17 23:59 Weight 133.2 kg - General Appearance Exam: Patient is sedated on the ventilator. Lungs coarse breath sounds. Heart is tachycardic and heart rate is irregular. Abdomen shows no guarding nor rigidity. There is minimal lower extremity swelling. There is a tunnel dialysis catheter in the right chest. - Lab 07/01/17 05:17 07/01/17 05:17 Most recent lab results ABG pH 7.31 pH Units (7.32-7.45) L 07/01/17 03:29 ABG pCO2 37 mmHg (35-45) 07/01/17 03:29 ABG pO2 120 mmHg (85-104) H 07/01/17 03:29 ABG HCO3 19 mEq/L (21-27) L 07/01/17 03:29 ABG O2 Saturation 98 % (95-98) 07/01/17 03:29 Calcium 7.4 mg/dL (8.6-10.8) L 07/01/17 05:17 Phosphorus 2.3 mg/dL (2.3-4.7) 07/01/17 05:17 Magnesium 2.1 mg/dL (1.6-2.6) 07/01/17 05:17 - VTE Documentation of Mechanical Device: Intermittent pneumatic compression device Consult Discharge Plan - Plan Referrals: NONE,PCP [Primary Care Provider] -
[2017-07-01] MEDS: Pantoprazole 40 MG VIAL IVPB SCH (08:17)
[2017-07-01] MEDS: Chlorhexidine Rinse 15 ML MOUTHWASH MM SCH ×2 (08:17→21:11)
[2017-07-01] MEDS: Aspirin 81 MG TAB.CHEW PO SCH (08:17)
[2017-07-01] MEDS ORDERED: Levofloxacin 750 MG/150 ML 750 MG/150 ML BAG IVPB SCH (09:00)
[2017-07-01] MEDS: Hydrocortisone Sodium Succ 100 MG/2 ML VIAL IVP SCH ×3 (09:00→21:11)
--- NOTE | 2017-07-01 09:25 | Cardiology Progress Note ---
<Jay Moser - Last Filed: 07/01/17 10:42> Date of Encounter: 07/01/17 Time of Encounter: 09:19 Assessment and Plan (1) Elevated troponin Current Visit: Yes Status: Acute underlying ACS vs CKD vs demand ischemia. Trops 0.02, 0.10, 2.80, 3.98, 4.37, 5.07, and 2.25. CK 127, 780, 605, and 544. CK not elevated on admission. Patient is currently in septic shock on 2 pressors w/ hx of ESRD on HD, afib, and CHF. EKG x3: Afib w/ RVR. 05/03/17 - echo LVEF 45-50%, 06/29/17 - echo LVEF 70%. - Patient is currently not stable enough for intervention, cards will continue to follow - JAMAL today - when patient becomes more hemodynamically stable, will cath (2) Atrial fibrillation with RVR Current Visit: Yes Status: Acute EKG x3 shows Afib w/RVR. Patient has known history of Afib, at home she's on metoprolol xl for rate control, and warfarin for anti-coagulation. On admission , due to CHF was started on Amiodarone for rhythm control and heparin for anti- coagulation. Patient HR remains >100. Currently clinically unstable. - continue heparin for anticoagulation - continue amiodarone for rhythm control (3) Septic shock Current Visit: Yes Status: Acute per management of ICU team (4) ESRD (end stage renal disease) on dialysis Current Visit: Yes Status: Acute per management of nephrology team Discussion w patient/family: The assessment and plan as outlined above was discussed with the patient and/or family members who expressed understanding and agreement. All questions were answered. Thank you for involving us in the care of your patient. Please call with any questions. Subjective Principal diagnosis: Septic shock Interval history: Ms Wei is a 72 year old Female admitted to ICU found unresponsive, in afib w / RVR with elevated trops and CK. Patient is currently intubated due to septic shock source UTI/bacteremia. Patient remains hemodynamically unstable, with MAP <65 and HR >150. Patient BP is non-responsive to 2 pressors, and Heart rhythm non-responsive to Amiodarone. Objective Vital Signs, Last 4 Hours Temp Pulse Resp BP Pulse Ox 07/01/17 08:00 95.7 F L 133 18 99/68 100 07/01/17 07:45 18 61/34 97 07/01/17 07:42 146 07/01/17 06:56 95.3 F L 124 15 66/40 97 07/01/17 06:00 94.4 F L 138 14 73/55 97 07/01/17 05:30 16 90/61 97 General: Other (sedated and intubated) HEENT: Atraumatic, Normocephaly, Mucus Membranes Moist Neck: No JVD, Other Cardiac: No Murmur, Other (tachy) Lungs: Normal Breath Sounds, No Wheeze, Rales, Rhonchi Neuro: Other (patient is currently sedated and intubated) Abdomen: Soft Skin: Other (chronic venostasis on left ) Extremities: No Clubbing, No Cyanosis, Other (extremities remain cold to touch.) Results 07/01/17 05:17 07/01/17 05:17 Lab Results 06/30/17 06/30/17 06/30/17 13:44 13:45 20:54 WBC Hgb Hct Plt Count INR APTT 104.9 H 295.7 H* D Sodium Potassium Chloride Carbon Dioxide BUN Creatinine Glucose Calcium Magnesium Total Bilirubin AST ALT Alkaline Phosphatase Troponin I 5.07 H* TSH 07/01/17 07/01/17 07/01/17 01:37 01:37 05:17 WBC 28.2 H Hgb 10.4 L Hct 30.6 L Plt Count 191 INR APTT 62.7 H D Sodium 127 L Potassium 3.4 L Chloride 97 L Carbon Dioxide 21 BUN 35 H D Creatinine 1.99 H D Glucose 149 H Calcium 7.2 L Magnesium 1.6 Total Bilirubin AST ALT Alkaline Phosphatase Troponin I TSH 07/01/17 07/01/17 07/01/17 05:17 05:17 06:10 WBC Hgb Hct Plt Count INR 2.7 APTT Sodium 127 L Potassium 3.7 Chloride 98 Carbon Dioxide 22 BUN 30 H Creatinine 1.68 H Glucose 154 H Calcium 7.4 L Magnesium 2.1 Total Bilirubin 0.7 AST 72 H ALT 34 Alkaline Phosphatase 213 H Troponin I 2.25 H* TSH 1.231 07/01/17 08:10 WBC Hgb Hct Plt Count INR APTT 58.7 H Sodium Potassium Chloride Carbon Dioxide BUN Creatinine Glucose Calcium Magnesium Total Bilirubin AST ALT Alkaline Phosphatase Troponin I TSH - VTE Documentation of Mechanical Device: Intermittent pneumatic compression device Consult Discharge Plan - Plan Referrals: NONE,PCP [Primary Care Provider] - <Yuri Ibarra - Last Filed: 07/01/17 12:07> Date of Encounter: 07/01/17 Assessment and Plan (1) Shock Current Visit: Yes Status: Acute Discussion w patient/family: The assessment and plan as outlined above was discussed with the patient and/or family members who expressed understanding and agreement. All questions were answered. Thank you for involving us in the care of your patient. Please call with any questions. I examined this patient and my medical decision-making was reviewed with the Resident Physician. I agree with the documented findings, disposition and treatment plan as described except to the extent set forth below. 72 YOF presents unresponsive to the ED maintains currently on multiple pressors and continues to have a MAP below 50mmHg. LVEF mildly reduced after initial 70 % yesterday. This is common with atrial fibrillation and RVR. Currently troponins are drifting down with a peak of about 5. Urosepsis is likely culprit being managed by ICU. With relative preserved EF and dyskinesis in the apex likely underlying CAD but R/B ratio not in favor of any invasive procedures. This was d/w family and they are in agreement. Poor prognosis Objective Vital Signs, Last 4 Hours Temp Pulse Resp BP Pulse Ox 07/01/17 11:17 122 07/01/17 11:04 30 77/43 96 07/01/17 11:00 122 18 77/43 98 07/01/17 10:00 98 F 144 17 78/44 95 07/01/17 09:00 97.1 F L 144 17 68/51 98 07/01/17 08:00 95.7 F L 133 18 99/68 100 Results 07/01/17 05:17 07/01/17 05:17 Lab Results 06/30/17 06/30/17 06/30/17 13:44 13:45 20:54 WBC Hgb Hct Plt Count INR APTT 104.9 H 295.7 H* D Sodium Potassium Chloride Carbon Dioxide BUN Creatinine Glucose Calcium Magnesium Total Bilirubin AST ALT Alkaline Phosphatase Troponin I 5.07 H* TSH 07/01/17 07/01/17 07/01/17 01:37 01:37 05:17 WBC 28.2 H Hgb 10.4 L Hct 30.6 L Plt Count 191 INR APTT 62.7 H D Sodium 127 L Potassium 3.4 L Chloride 97 L Carbon Dioxide 21 BUN 35 H D Creatinine 1.99 H D Glucose 149 H Calcium 7.2 L Magnesium 1.6 Total Bilirubin AST ALT Alkaline Phosphatase Troponin I TSH 07/01/17 07/01/17 07/01/17 05:17 05:17 06:10 WBC Hgb Hct Plt Count INR 2.7 APTT Sodium 127 L Potassium 3.7 Chloride 98 Carbon Dioxide 22 BUN 30 H Creatinine 1.68 H Glucose 154 H Calcium 7.4 L Magnesium 2.1 Total Bilirubin 0.7 AST 72 H ALT 34 Alkaline Phosphatase 213 H Troponin I 2.25 H* TSH 1.231 07/01/17 08:10 WBC Hgb Hct Plt Count INR APTT 58.7 H Sodium Potassium Chloride Carbon Dioxide BUN Creatinine Glucose Calcium Magnesium Total Bilirubin AST ALT Alkaline Phosphatase Troponin I TSH
--- NOTE | 2017-07-01 10:00 | Pulmonology Progress Note ---
<Daniel Garcia - Last Filed: 07/01/17 11:37> Date of Encounter: 07/01/17 Time of Encounter: 09:58 Assessment and Plan (1) Septic shock Current Visit: Yes Status: Acute Patient remains in septic shock requiring 2 pressors maxed out for blood pressure support. Urine remains the most likely source this time. Lactate has normalized. Urine cultures show gram-negative rods in the urine, blood cultures negative to date. Discontinue daptomycin, will add Levaquin for double coverage for possible Pseudomonas. Continue Zosyn. (2) UTI (urinary tract infection) Current Visit: No Status: Acute As above. Final cultures are pending. Continue antibiotics. Qualifiers: Urinary tract infection type: acute cystitis Hematuria presence: without hematuria Qualified Code(s): N30.00 - Acute cystitis without hematuria (3) ESRD (end stage renal disease) on dialysis Current Visit: Yes Status: Acute Patient has her normal Thursday dialysis sessions however family does report that she has missed some of these due to abdominal pain and nausea. Given the patient's hemodynamic instability nephrology as elected to institute continuous renal replacement therapy. Patient remains oliguric. No hyperkalemia. Further management per nephrology. (4) Atrial fibrillation with RVR Current Visit: Yes Status: Acute Yesterday heart rate continued to increase to a peak of 180. Heart rate slightly better running in the low 100s. EKGs revealed atrial fibrillation with rapid ventricular response. This is likely related to the patient's underlying infection as well as vasopressor use. Continue IV amiodarone. Cardiology is following. (5) Elevated troponin Current Visit: Yes Status: Acute Peaked at 5.07 and has began to decline at this point. Cardiology evaluated patient and feel that the patient likely had an ischemic event however given the fact that her troponin is decreasing and given her critical illness the risks of left heart catheterization outweighed the benefits. This was explained at length by cardiology to the family and they verbalized understanding. Echo revealed an EF of 40-45% so it is unlikely that she is suffering from cardiogenic shock. (6) Decubital ulcer Current Visit: Yes Status: Acute Present on arrival. Does not appear infected. Qualifiers: Pressure ulcer location: sacral region Pressure ulcer stage: stage 2 Qualified Code(s): L89.152 - Pressure ulcer of sacral region, stage 2 (7) Diabetes mellitus Current Visit: Yes Status: Acute Blood sugars have been much improved. Continue sliding-scale insulin. Continue to monitor blood sugars. Patient remains nothing by mouth. Qualifiers: Diabetes mellitus type: type 2 Diabetes mellitus complication status: without complication Diabetes mellitus mcc insulin use: unspecified computed tomography technician insulin use status Qualified Code(s): E11.9 - Type 2 diabetes mellitus without complications Subjective Principal diagnosis: Septic shock Interval history: Patient seen and examined at bedside. She remains intubated and sedated. She continues to require 3 pressors for blood pressure support. She will open her eyes to verbal stimuli but does not follow commands. She does not appear to be in acute distress. Objective PUL Vital signs: Last Vital Signs Temp 97.1 F L 07/01/17 09:00 Pulse 144 07/01/17 09:00 Resp 17 07/01/17 09:00 BP 68/51 07/01/17 09:00 Pulse Ox 98 07/01/17 09:00 General appearance: no acute distress, comatose ENT: oropharynx moist Auscultation: bilateral: diminished breath sounds Cardiovascular: irregular rhythm (tachycardia) Gastrointestinal: hypoactive bowel sounds, soft, non-tender Extremities: no cyanosis, no clubbing, edema (2+ pitting edema bilaterally) unable to assess due to mental status Ventilator Settings Ventilator Settings: Ventilator Settings, Last 8 Hours Ventilator Mode VC+ Ventilator Mode VC+ Ventilator Mode VC+ Ventilator Mode VC+ Ventilator Mode VC+ Ventilator Mode VC+ Ventilator Mode VC+ Ventilator Tidal Volume 500 Setting Ventilator Tidal Volume 500 Setting Ventilator Tidal Volume 500 Setting Ventilator Tidal Volume 500 Setting Ventilator Tidal Volume 500 Setting Ventilator Tidal Volume 500 Setting Ventilator Tidal Volume 500 Setting Ventilator Respiratory Rate 12 Setting Ventilator Respiratory Rate 12 Setting Ventilator Respiratory Rate 12 Setting Ventilator Respiratory Rate 12 Setting Ventilator Respiratory Rate 12 Setting Ventilator Respiratory Rate 12 Setting Ventilator Respiratory Rate 12 Setting Actual Respiratory Rate 17 Actual Respiratory Rate 18 Actual Respiratory Rate 18 Actual Respiratory Rate 16 Actual Respiratory Rate 14 Actual Respiratory Rate 13 Positive End Expiratory 5 Pressure Positive End Expiratory 5 Pressure Positive End Expiratory 5 Pressure Positive End Expiratory 5 Pressure Positive End Expiratory 5 Pressure Positive End Expiratory 5 Pressure Peak Inspiratory Airway 21 Pressure Peak Inspiratory Airway 21 Pressure Peak Inspiratory Airway 23 Pressure Peak Inspiratory Airway 21 Pressure Peak Inspiratory Airway 21 Pressure Peak Inspiratory Airway 24 Pressure Results - Laboratory Findings CBC and BMP: 07/01/17 05:17 07/01/17 05:17 ABG ABG pH 7.31 pH Units (7.32-7.45) L 07/01/17 03:29 ABG pCO2 37 mmHg (35-45) 07/01/17 03:29 ABG pO2 120 mmHg (85-104) H 07/01/17 03:29 ABG O2 Saturation 98 % (95-98) 07/01/17 03:29 PT/INR, D-dimer PT 29.4 Seconds (9.4-12.1) H 07/01/17 06:10 Abnormal lab findings: Abnormal lab results WBC 28.2 K/mcL (4.3-11.1) H 07/01/17 05:17 RBC 3.76 M/mcL (3.82-4.97) L 07/01/17 05:17 Hgb 10.4 g/dL (11.5-15.4) L 07/01/17 05:17 Hct 30.6 % (35.3-44.9) L 07/01/17 05:17 MCV 81.4 fL (83.0-100.0) L 07/01/17 05:17 MCH 27.7 pg (28.0-33.3) L 07/01/17 05:17 RDW 17.6 % (11.5-14.5) H 07/01/17 05:17 Neutrophils # 25.9 K/mcL (1.6-8.9) H 07/01/17 05:17 Hypersegmented Neuts Present (Not Present) A 07/01/17 05:17 Toxic Granulation Present (Not Present) A 07/01/17 05:17 Large Platelets Present (Not Present) A 07/01/17 05:17 PT 29.4 Seconds (9.4-12.1) H 07/01/17 06:10 APTT 58.7 Seconds (26.0-36.0) H 07/01/17 08:10 ABG pH 7.31 pH Units (7.32-7.45) L 07/01/17 03:29 ABG pO2 120 mmHg (85-104) H 07/01/17 03:29 ABG HCO3 19 mEq/L (21-27) L 07/01/17 03:29 ABG Base Excess -7 mEq/L (-2 to 3) L 07/01/17 03:29 VBG pH 7.24 pH Units (7.32-7.42) L 07/01/17 01:51 Sodium 127 mEq/L (136-145) L 07/01/17 05:17 BUN 30 mg/dL (7-20) H 07/01/17 05:17 Creatinine 1.68 mg/dL (0.57-1.11) H 07/01/17 05:17 Est GFR ( Amer) 37 (> 60) L 07/01/17 05:17 Est GFR (Non-Af Amer) 30 (> 60) L 07/01/17 05:17 Glucose 154 mg/dL (70-99) H 07/01/17 05:17 POC Glucose 145 (58-89) H 07/01/17 00:05 Calculated Osmolality 273 (280-300) L 07/01/17 05:17 Lactic Acid 2.8 mmol/L (0.5-2.2) H 07/01/17 05:17 Calcium 7.4 mg/dL (8.6-10.8) L 07/01/17 05:17 Ionized Calcium 1.00 mmol/L (1.15-1.35) L 07/01/17 01:37 AST 72 Units/L (5-34) H 07/01/17 05:17 Alkaline Phosphatase 213 Units/L (38-126) H 07/01/17 05:17 Creatine Kinase 544 Units/L (29-168) H 07/01/17 05:17 Troponin I 2.25 ng/mL (0-0.03) H* 07/01/17 05:17 Serum Total Protein 4.7 g/dL (6.0-8.3) L 07/01/17 05:17 Albumin 1.7 g/dL (3.5-5.0) L 07/01/17 05:17 Albumin/Globulin Ratio 0.6 (1.1-2.2) L 07/01/17 05:17 Salicylates < 5.0 mg/dL (15-30) L 06/29/17 11:15 Acetaminophen < 1.0 mcg/mL (10-30) L 06/29/17 11:15 - Microbiology Findings Microbiology Findings: Microbiology, Last 48 Hours 06/29/17 15:05 Sputum Culture - Preliminary Sputum Yeast Species - Clinical Findings Intake & Output: Intake & Output 06/30/17 07/01/17 07/01/17 23:59 07:59 15:59 Intake Total 1590.0 / 1590.0 1174.9 / 1174.9 163.5 / 163.5 Output Total 1094 / 1094 1072 / 1072 293 / 293 Balance 496.0 / 496.0 102.9 / 102.9 -129.5 / -129.5 Weight 133.2 kg - VTE Documentation of Mechanical Device: Intermittent pneumatic compression device Consult Discharge Plan - Plan Referrals: NONE,PCP [Primary Care Provider] - <Emily Smith M - Last Filed: 07/01/17 13:43> Date of Encounter: 07/01/17 Objective PUL Vital signs: Last Vital Signs Temp 96.2 F L 07/01/17 13:00 Pulse 107 07/01/17 13:00 Resp 14 07/01/17 13:00 BP 78/63 07/01/17 13:00 Pulse Ox 98 07/01/17 13:00 Ventilator Settings Ventilator Settings: Ventilator Settings, Last 8 Hours Ventilator Mode VC+ Ventilator Mode VC+ Ventilator Mode VC+ Ventilator Mode VC+ Ventilator Mode VC+ Ventilator Mode VC+ Ventilator Mode VC+ Ventilator Mode VC+ Ventilator Mode VC+ Ventilator Tidal Volume 500 Setting Ventilator Tidal Volume 500 Setting Ventilator Tidal Volume 500 Setting Ventilator Tidal Volume 500 Setting Ventilator Tidal Volume 500 Setting Ventilator Tidal Volume 500 Setting Ventilator Tidal Volume 500 Setting Ventilator Tidal Volume 500 Setting Ventilator Tidal Volume 500 Setting Ventilator Respiratory Rate 12 Setting Ventilator Respiratory Rate 12 Setting Ventilator Respiratory Rate 12 Setting Ventilator Respiratory Rate 12 Setting Ventilator Respiratory Rate 12 Setting Ventilator Respiratory Rate 12 Setting Ventilator Respiratory Rate 12 Setting Ventilator Respiratory Rate 12 Setting Ventilator Respiratory Rate 12 Setting Actual Respiratory Rate 14 Actual Respiratory Rate 18 Actual Respiratory Rate 12 Actual Respiratory Rate 18 Actual Respiratory Rate 16 Actual Respiratory Rate 30 Actual Respiratory Rate 17 Actual Respiratory Rate 18 Actual Respiratory Rate 18 Positive End Expiratory 5 Pressure Positive End Expiratory 5 Pressure Positive End Expiratory 5 Pressure Positive End Expiratory 5 Pressure Positive End Expiratory 5 Pressure Positive End Expiratory 5 Pressure Positive End Expiratory 5 Pressure Positive End Expiratory 5 Pressure Positive End Expiratory 5 Pressure Peak Inspiratory Airway 22 Pressure Peak Inspiratory Airway 20 Pressure Peak Inspiratory Airway 26 Pressure Peak Inspiratory Airway 20 Pressure Peak Inspiratory Airway 22 Pressure Peak Inspiratory Airway 19 Pressure Peak Inspiratory Airway 21 Pressure Peak Inspiratory Airway 21 Pressure Peak Inspiratory Airway 23 Pressure Results - Laboratory Findings CBC and BMP: 07/01/17 05:17 07/01/17 05:17 ABG ABG pH 7.31 pH Units (7.32-7.45) L 07/01/17 03:29 ABG pCO2 37 mmHg (35-45) 07/01/17 03:29 ABG pO2 120 mmHg (85-104) H 07/01/17 03:29 ABG O2 Saturation 98 % (95-98) 07/01/17 03:29 PT/INR, D-dimer PT 29.4 Seconds (9.4-12.1) H 07/01/17 06:10 Abnormal lab findings: Abnormal lab results WBC 28.2 K/mcL (4.3-11.1) H 07/01/17 05:17 RBC 3.76 M/mcL (3.82-4.97) L 07/01/17 05:17 Hgb 10.4 g/dL (11.5-15.4) L 07/01/17 05:17 Hct 30.6 % (35.3-44.9) L 07/01/17 05:17 MCV 81.4 fL (83.0-100.0) L 07/01/17 05:17 MCH 27.7 pg (28.0-33.3) L 07/01/17 05:17 RDW 17.6 % (11.5-14.5) H 07/01/17 05:17 Neutrophils # 25.9 K/mcL (1.6-8.9) H 07/01/17 05:17 Hypersegmented Neuts Present (Not Present) A 07/01/17 05:17 Toxic Granulation Present (Not Present) A 07/01/17 05:17 Large Platelets Present (Not Present) A 07/01/17 05:17 PT 29.4 Seconds (9.4-12.1) H 07/01/17 06:10 APTT 58.7 Seconds (26.0-36.0) H 07/01/17 08:10 ABG pH 7.31 pH Units (7.32-7.45) L 07/01/17 03:29 ABG pO2 120 mmHg (85-104) H 07/01/17 03:29 ABG HCO3 19 mEq/L (21-27) L 07/01/17 03:29 ABG Base Excess -7 mEq/L (-2 to 3) L 07/01/17 03:29 VBG pH 7.24 pH Units (7.32-7.42) L 07/01/17 01:51 Sodium 127 mEq/L (136-145) L 07/01/17 05:17 BUN 30 mg/dL (7-20) H 07/01/17 05:17 Creatinine 1.68 mg/dL (0.57-1.11) H 07/01/17 05:17 Est GFR ( Amer) 37 (> 60) L 07/01/17 05:17 Est GFR (Non-Af Amer) 30 (> 60) L 07/01/17 05:17 Glucose 154 mg/dL (70-99) H 07/01/17 05:17 POC Glucose 131 (58-89) H 07/01/17 11:14 Calculated Osmolality 273 (280-300) L 07/01/17 05:17 Lactic Acid 2.8 mmol/L (0.5-2.2) H 07/01/17 05:17 Calcium 7.4 mg/dL (8.6-10.8) L 07/01/17 05:17 Ionized Calcium 1.00 mmol/L (1.15-1.35) L 07/01/17 01:37 AST 72 Units/L (5-34) H 07/01/17 05:17 Alkaline Phosphatase 213 Units/L (38-126) H 07/01/17 05:17 Creatine Kinase 544 Units/L (29-168) H 07/01/17 05:17 Troponin I 2.55 ng/mL (0-0.03) H* 07/01/17 11:39 Serum Total Protein 4.7 g/dL (6.0-8.3) L 07/01/17 05:17 Albumin 1.7 g/dL (3.5-5.0) L 07/01/17 05:17 Albumin/Globulin Ratio 0.6 (1.1-2.2) L 07/01/17 05:17 Salicylates < 5.0 mg/dL (15-30) L 06/29/17 11:15 Acetaminophen < 1.0 mcg/mL (10-30) L 06/29/17 11:15 - Microbiology Findings Microbiology Findings: Microbiology, Last 48 Hours 06/29/17 15:05 Sputum Culture - Preliminary Sputum Yeast Species - Clinical Findings Intake & Output: Intake & Output 06/30/17 07/01/17 07/01/17 23:59 07:59 15:59 Intake Total 1590.0 / 1590.0 1174.9 / 1174.9 1491.8 / 1491.8 Output Total 1094 / 1094 1072 / 1072 1272 / 1272 Balance 496.0 / 496.0 102.9 / 102.9 219.8 / 219.8 Weight 133.2 kg - Attending Attestation I examined this patient and my medical decision-making was reviewed with the Resident Physician. I agree with the documented findings, disposition and treatment plan as described except to the extent set forth below. Patient seen and examined. Labs, radiology, chart personally reviewed. 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 There is no plan for spontaneous breathing trial due to hemodynamic instability. Cardiovascular: Discussed with the associate art director and patient is high risk for any interventional procedure and this was explained to the family. Patient remained in shock requiring more need for vasopressors and they still feel the prognosis is very poor. Patient is hypothermic which is secondary to hypoperfusion and septic GI: Nutrition per dietary and GI prophylaxis per routine Heme: DVT prophylaxis per routine. Patient is on anticoagulation. ID: Continue antibiotics and plan to de-escalation. Stop daptomycin and double coverage for gram-negative. Renal; urine out put and renal funtion reviewed. Patient is tolerating her asthma. Endorcine: blood glucose is monitored area to due to hypothermia will check TSH level. Lines: all lines checked and no evidence of infections Skin: skin care to prevent pressure ulcers per nursing routine care Overall prognosis is very poor and this was explained to the family. I spent 35 min of Critical Care time with this patient. It involved decision making of high complexity to assess, manipulate, and support vital organ system failure and/or to prevent further life threatening deterioration of the patient' s condition. The time involved in the performance of separately reportable procedures was not counted toward critical care time.
[2017-07-01] MEDS: Amiodarone Premix 360 MG/200 ML BAG IVC SCH ×2 (10:29→22:09)
[2017-07-01] MEDS: Vasopressin 40 UNIT in D5% in Water 100 ML IV SCH (10:31)
[2017-07-01] MEDS ORDERED: 0.9 % Sodium Chloride 1,000 ML IVC ONE (11:22)
[2017-07-01] MEDS: *HR* Midazolam HCl 2 MG/2 ML VIAL IVP PRN ×2 (15:32→19:27)
--- NOTE | 2017-07-01 16:54 | Electrocardiograph Report ---
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
--- NOTE | 2017-07-01 16:57 | Electrocardiograph Report ---
[address] [place], [place] [address] Test Date: 2017-07-01 Pat Name: Mitchel Wei Department: 109 Room: 02 Gender: F Group Art Supervisor: JANELLE : 1945 Requested By: Emily Smith Order Number: [id number] Reading MD: Jeannette Lawson Measurements Intervals [place] Rate: 111 P: [place]: 0 QRS: -23 QRSD: 111 T: 129 QT: 373 QTc: 439 Interpretive Statements ATRIAL FIBRILLATION WITH RAPID VENTRICULAR RESPONSE POSSIBLE ANTERIOR MYOCARDIAL INFARCTION, OF INDETERMINATE AGE INFERIOR MYOCARDIAL INFARCTION, OF INDETERMINATE AGE Electronically Signed On 07-01-2017 16:56:17 EDT by Jeannette Lawson
--- NOTE | 2017-07-01 18:23 | Urology - Consult Note ---
Date of Encounter: 07/01/17 Time of Encounter: 18:21 - Assessment and Plan (1) Left ureteral stone Current Visit: Yes Status: Acute Assessment and plan: Patient CT scan does show a 2 mm left proximal ureteral stone which was not present on CT scan in April 2017. At this point the patient is quite ill secondary to sepsis. She has made some small improvements. It is quite difficult to tell whether the stone is contributing to her sepsis at this time. At this point, I do not think that placing a ureteral stent in the ICU is going to affect the patient's prognosis. I will continue to follow along closely. If the patient's recovery hits a plateau that I may consider placing a ureteral stent in the intensive care unit. Urology CN:HPI Consult date: 07/01/17 Reason for consult Urology: Other (left ureteral stone) Requesting physician: Emily Smith History of present illness: Mitchel is a 72-year-old female who is admitted to the ICU secondary to being found unresponsive. Patient has likely urinary tract source for her sepsis. She is currently on multiple pressors. Patient is currently intubated as well. Patient had CT scan done yesterday which showed possible 2 mm left proximal ureteral stone with minimal hydronephrosis proximal to this. No perinephric fat stranding on the left kidney. Patient is a chronic dialysis patient and she does have a urinary catheter in place which has produced some urine. Past Med Surg Social Fam HX - Past Medical History Medical history: arthritis, COPD, GERD, hypertension, osteoporosis Psychiatric history: ADHD, depression - Past Surgical History Surgical History: other - Social History Smoking Status: Never smoker Smokeless Tobacco Status: No Alcohol use: none Drug use: none - Family History Mother History Unknown: Yes Living Status: Hx Family Cardiac Disorders: Yes Hx Family Endocrine Disorder: Yes (Diabetes) Medications and Allergies Alendronate Sodium [Fosamax] 70 mg PO QWEEK 02/13/16 [History] Calcium Carb/Vitamin D3/Vit K1 [Calcium + D Soft Chewable Tab] 1 mg PO DAILY 04/22 [History] Amitriptyline [Elavil] 25 mg PO DAILY 04/28/17 [History] DULoxetine [Cymbalta] 30 mg PO BID 04/28/17 [History] HYDROcodone/Acet 7.5/325 mg [[place] 7.5-325 mg] 1 tab PO Q6H 04/28/17 [History] Trazodone HCl 100 mg PO BID 04/28/17 [History] Metoprolol XL (24 HR) Succ [Toprol Xl] 12.5 mg PO BID #60 05/12/17 [Rx] Bisacodyl [Dulcolax] 10 mg RC DAILY PRN 06/29/17 [History] Dicyclomine [Bentyl] 10 mg PO QID 06/29/17 [History] Docusate Sodium [Dok] 100 mg PO BID 06/29/17 [History] Gabapentin [Neurontin] 100 mg PO BID 06/29/17 [History] Linaclotide [Linzess] 145 mcg PO DAILY 06/29/17 [History] Lubiprostone [Amitiza] 24 mcg PO BID 06/29/17 [History] Mirtazapine [Remeron] 15 mg PO HS 06/29/17 [History] Ondansetron HCl [Zofran] 4 mg PO Q6H PRN 06/29/17 [History] Oxybutynin [Ditropan] 5 mg PO DAILY 06/29/17 [History] Ranitidine HCl [Zantac 75] 75 mg PO BID 06/29/17 [History] Renal Vitamin [Renal Caps Softgel] 1 mg PO DAILY 06/29/17 [History] Sertraline [Zoloft] 50 mg PO DAILY 06/29/17 [History] Warfarin [Coumadin] 1.5 mg PO Q48H 06/29/17 [History] Warfarin [Coumadin] 2 mg PO Q48H 06/29/17 [History] 3 Allergy/AdvReac Type Severity Reaction Status Date / Time ibuprofen [From Motrin] AdvReac Nausea Verified 02/13/16 10:46 Review of Systems ROS unobtainable: due to mental status Exam Initial Vital Signs Resp BP Pulse Ox 14 49/35 95 06/29/17 10:20 06/29/17 10:20 06/29/17 10:20 - General physical appearance Present: chronically ill - Abdomen Abdomen: Present: soft - Genitourinary Present: other (Clear urine in tubing) Urology Results - Labs 07/01/17 05:17 07/01/17 05:17 Abnormal lab results WBC 28.2 K/mcL (4.3-11.1) H 07/01/17 05:17 RBC 3.76 M/mcL (3.82-4.97) L 07/01/17 05:17 Hgb 10.4 g/dL (11.5-15.4) L 07/01/17 05:17 Hct 30.6 % (35.3-44.9) L 07/01/17 05:17 MCV 81.4 fL (83.0-100.0) L 07/01/17 05:17 MCH 27.7 pg (28.0-33.3) L 07/01/17 05:17 RDW 17.6 % (11.5-14.5) H 07/01/17 05:17 Neutrophils # 25.9 K/mcL (1.6-8.9) H 07/01/17 05:17 Hypersegmented Neuts Present (Not Present) A 07/01/17 05:17 Toxic Granulation Present (Not Present) A 07/01/17 05:17 Large Platelets Present (Not Present) A 07/01/17 05:17 PT 29.4 Seconds (9.4-12.1) H 07/01/17 06:10 APTT 79.1 Seconds (26.0-36.0) H 07/01/17 13:15 ABG pH 7.31 pH Units (7.32-7.45) L 07/01/17 03:29 ABG pO2 120 mmHg (85-104) H 07/01/17 03:29 ABG HCO3 19 mEq/L (21-27) L 07/01/17 03:29 ABG Base Excess -7 mEq/L (-2 to 3) L 07/01/17 03:29 VBG pH 7.24 pH Units (7.32-7.42) L 07/01/17 01:51 Sodium 127 mEq/L (136-145) L 07/01/17 05:17 BUN 30 mg/dL (7-20) H 07/01/17 05:17 Creatinine 1.68 mg/dL (0.57-1.11) H 07/01/17 05:17 Est GFR ( Amer) 37 (> 60) L 07/01/17 05:17 Est GFR (Non-Af Amer) 30 (> 60) L 07/01/17 05:17 Glucose 154 mg/dL (70-99) H 07/01/17 05:17 POC Glucose 165 (58-89) H 07/01/17 17:13 Calculated Osmolality 273 (280-300) L 07/01/17 05:17 Lactic Acid 2.8 mmol/L (0.5-2.2) H 07/01/17 05:17 Calcium 7.4 mg/dL (8.6-10.8) L 07/01/17 05:17 Ionized Calcium 1.00 mmol/L (1.15-1.35) L 07/01/17 01:37 AST 72 Units/L (5-34) H 07/01/17 05:17 Alkaline Phosphatase 213 Units/L (38-126) H 07/01/17 05:17 Creatine Kinase 544 Units/L (29-168) H 07/01/17 05:17 Troponin I 2.55 ng/mL (0-0.03) H* 07/01/17 11:39 Serum Total Protein 4.7 g/dL (6.0-8.3) L 07/01/17 05:17 Albumin 1.7 g/dL (3.5-5.0) L 07/01/17 05:17 Albumin/Globulin Ratio 0.6 (1.1-2.2) L 07/01/17 05:17 Salicylates < 5.0 mg/dL (15-30) L 06/29/17 11:15 Acetaminophen < 1.0 mcg/mL (10-30) L 06/29/17 11:15 Diabetes panel 07/01/17 07/01/17 Range/Units 01:37 05:17 Sodium 127 L 127 L (136-145) mEq/L Potassium 3.4 L 3.7 (3.5-4.5) mEq/L Chloride 97 L 98 (98-109) mEq/L Carbon Dioxide 21 22 (19-29) mEq/L BUN 35 H D 30 H (7-20) mg/dL Creatinine 1.99 H D 1.68 H (0.57-1.11) mg/dL Glucose 149 H 154 H (70-99) mg/dL Calcium 7.2 L 7.4 L (8.6-10.8) mg/dL AST 72 H (5-34) Units/L ALT 34 (0-55) Units/L Alkaline Phosphatase 213 H (38-126) Units/L Albumin 1.7 L (3.5-5.0) g/dL Thyroid panel 07/01/17 Range/Units 05:17 TSH 1.231 (0.350-4.840) mcIU/mL Calcium panel 07/01/17 07/01/17 Range/Units 01:37 05:17 Calcium 7.2 L 7.4 L (8.6-10.8) mg/dL Phosphorus 2.3 (2.3-4.7) mg/dL Albumin 1.7 L (3.5-5.0) g/dL Pituitary panel 07/01/17 07/01/17 Range/Units 01:37 05:17 Sodium 127 L 127 L (136-145) mEq/L Potassium 3.4 L 3.7 (3.5-4.5) mEq/L Chloride 97 L 98 (98-109) mEq/L Carbon Dioxide 21 22 (19-29) mEq/L BUN 35 H D 30 H (7-20) mg/dL Creatinine 1.99 H D 1.68 H (0.57-1.11) mg/dL Glucose 149 H 154 H (70-99) mg/dL Calcium 7.2 L 7.4 L (8.6-10.8) mg/dL TSH 1.231 (0.350-4.840) mcIU/mL Adrenal panel 07/01/17 07/01/17 Range/Units 01:37 05:17 Sodium 127 L 127 L (136-145) mEq/L Potassium 3.4 L 3.7 (3.5-4.5) mEq/L Chloride 97 L 98 (98-109) mEq/L Carbon Dioxide 21 22 (19-29) mEq/L BUN 35 H D 30 H (7-20) mg/dL Creatinine 1.99 H D 1.68 H (0.57-1.11) mg/dL Glucose 149 H 154 H (70-99) mg/dL Calcium 7.2 L 7.4 L (8.6-10.8) mg/dL Total Bilirubin 0.7 (0.2-1.2) mg/dL AST 72 H (5-34) Units/L ALT 34 (0-55) Units/L Alkaline Phosphatase 213 H (38-126) Units/L Albumin 1.7 L (3.5-5.0) g/dL All other labs normal. - Imaging CT scan - abdomen: image reviewed CT scan - pelvis: image reviewed Consult Discharge Plan - Plan Referrals: NONE,PCP [Primary Care Provider] -
[2017-07-01 20:07] LABS: Activated Partial Thrombo Time 127.1 Seconds (26.0-36.0)
[2017-07-01 20:11] LABS: Heparin anti-factor XA UFH 0.05 IU/mL (0.30-0.70)
[2017-07-02] MEDS: Insulin LISPRO 300 UNITS/3 ML VIAL SQ SCH ×4 (00:31→18:38)
[2017-07-02] MEDS: 0.9 % Sodium Chloride 1,000 ML PRIME SCH ×3 (00:31→20:39)
[2017-07-02] MEDS: Lacri-Lube 3.5 GM TUBE BOTH EYES SCH ×6 (00:34→20:46)
[2017-07-02] MEDS: *HR* FentaNYL (PF) 100 MCG/2 ML VIAL IVP PRN ×2 (00:54→04:33)
[2017-07-02] MEDS: PrismaSATE BGK 4/2.5 5,000 ML CRRT SCH ×8 (01:40→23:41)
[2017-07-02] MEDS: Dexmedetomidine HCl 400 MCG/100 ML MLS IVC SCH ×5 (04:29→20:45)
[2017-07-02] MEDS: Hydrocortisone Sodium Succ 100 MG/2 ML VIAL IVP SCH ×4 (04:33→20:48)
[2017-07-02 04:34] LABS: ABG Base Excess -1 mEq/L (-2 to 3); ABG HCO3 22 mEq/L (21-27); ABG Oxygen Saturation 97 % (95-98); ABG PCO2 28 mmHg (35-45); ABG PO2 83 mmHg (85-104); ABG TCO2 23 mEq/L (20-26); Blood Gas Modality ASSIST CONTROL; Blood Gas PEEP 5 cm H2O; Blood Gas Respiration Rate 12; Blood Gas VT 500 cc
[2017-07-02 04:57] LABS: Basophils % 0.1 %; Eosinophils % 0.1 %; Hematocrit 26.3 % (35.3-44.9); Hemoglobin 8.9 g/dL (11.5-15.4); Immature Granulocytes % 1.8 % (0-4); Lymphocytes # 0.3 K/mcL (0.6-4.6); Lymphocytes % 1.5 %; Mean Corpuscular HGB Conc 33.8 g/dL (31.6-35.5); Mean Corpuscular Hemoglobin 27.1 pg (28.0-33.3); Mean Corpuscular Volume 80.2 fL (83.0-100.0); Mean Platelet Volume 10.9 fL (9.4-12.4); Monocytes # 0.4 K/mcL (0.0-1.3); Neutrophils # 19.1 K/mcL (1.6-8.9); Platelet Count 198 K/mcL (140-400); Red Blood Count 3.28 M/mcL (3.82-4.97); Red Cell Distribution Width 17.6 % (11.5-14.5); Segmented Neutrophils % 94.5 %
[2017-07-02 05:02] LABS: Ionized Calcium 0.96 mmol/L (1.15-1.35); Prothrombin Time 22.2 Seconds (9.4-12.1)
[2017-07-02 05:06] LABS: Activated Partial Thrombo Time 53.3 Seconds (26.0-36.0)
[2017-07-02 05:14] LABS: Alanine Aminotransferase 29 Units/L (0-55); Albumin/Globulin Ratio 0.5 (1.1-2.2); Alkaline Phosphatase 187 Units/L (38-126); Aspartate Amino Transferase 49 Units/L (5-34); BUN/Creatinine Ratio 15 (6-26); Bilirubin,Direct 0.4 mg/dL (0.0-0.5); Bilirubin,Indirect 0.3 mg/dL (0.0-1.2); Bilirubin,Total 0.7 mg/dL (0.2-1.2); Calcium 7.1 mg/dL (8.6-10.8); Carbon Dioxide 23 mEq/L (19-29); Chloride 97 mEq/L (98-109); Globulin 3.1 g/dL (2.4-3.5); Glucose 186 mg/dL (70-99); Magnesium 1.7 mg/dL (1.6-2.6); Osmolality,Calculated 275 (280-300); Phosphorous 1.2 mg/dL (2.3-4.7); Sodium 130 mEq/L (136-145); Total Protein 4.6 g/dL (6.0-8.3); eGFR For African Americans > 60 (> 60); eGFR For Non-African Americans > 60 (> 60)
[2017-07-02 05:18] LABS: Albumin 1.5 g/dL (3.5-5.0); Blood Urea Nitrogen 13 mg/dL (7-20)
[2017-07-02] MEDS: Norepinephrine 8 MG in D5% in Water 500 ML IVC SCH ×3 (06:01→17:46)
[2017-07-02] MEDS: *HR* Midazolam HCl 5 MG/5 ML VIAL IVP PRN ×2 (07:17→20:20)
[2017-07-02] MEDS: Piperacillin/Tazobactam 3.375 GM in D5% in Water (Mini-Bag+) 100 ML IVPB SCH ×2 (07:17→15:54)
--- NOTE | 2017-07-02 08:46 | Nephrology Progress Note ---
Date of Encounter: 07/02/17 Time of Encounter: 08:20 - Assessment and Plan (1) ESRD (end stage renal disease) on dialysis Current Visit: Yes Status: Acute Continue CVVH, no net fluid removal, hemodynamically unstable. Subjective Principal diagnosis: Septic shock Interval history: Intubated, on multiple pressors. CVVH. Objective - Vital Signs Vital signs: Vital Signs Temp Pulse Resp BP Pulse Ox 07/02/17 08:00 97.0 F L 103 14 91/54 98 07/02/17 07:40 14 90/59 99 07/02/17 07:00 113 14 97/52 99 07/02/17 06:00 109 18 63/59 98 07/02/17 05:35 23 64/36 98 07/02/17 05:00 106 18 104/56 98 07/02/17 04:30 109 07/02/17 04:00 110 14 94/48 98 07/02/17 03:15 16 102/65 97 07/02/17 03:00 110 24 102/65 98 07/02/17 02:00 110 24 98/61 98 07/02/17 01:20 17 105/54 98 07/02/17 01:00 120 35 100/64 97 07/02/17 00:00 104 18 87/58 97 07/01/17 23:30 16 100/54 98 07/01/17 23:00 109 18 88/45 97 07/01/17 22:00 110 14 87/45 96 07/01/17 21:45 15 82/51 98 07/01/17 21:00 107 16 83/46 96 07/01/17 20:00 118 25 93/63 97 07/01/17 19:51 108 07/01/17 19:35 14 84/56 96 07/01/17 19:00 97.5 F L 110 19 94/51 96 07/01/17 18:00 96.9 F L 99 14 98/58 98 07/01/17 17:02 14 120/80 98 07/01/17 17:00 97.1 F L 100 15 96/47 98 07/01/17 16:00 97.8 F 100 15 96/47 98 07/01/17 15:26 107 07/01/17 15:17 14 98 07/01/17 15:00 98.5 F 113 18 90/54 98 07/01/17 14:00 97.4 F L 107 15 104/71 96 07/01/17 13:13 14 120/82 98 07/01/17 13:00 96.2 F L 107 14 78/63 98 07/01/17 12:00 97.2 F L 93 19 74/38 97 07/01/17 11:17 122 07/01/17 11:04 30 77/43 96 07/01/17 11:00 98.3 F 122 18 77/43 98 07/01/17 10:00 98 F 144 17 78/44 95 07/01/17 09:00 97.1 F L 144 17 68/51 98 Intake and Output 07/01/17 07/02/17 07/02/17 23:59 07:59 15:59 Intake Total 1491.4 / 1491.4 1578 / 1578 Output Total 1505 / 1505 1454 / 1454 194 / 194 Balance -13.6 / -13.6 124 / 124 -194 / -194 Intake: IV Fluids 1491.4 / 1491.4 1578 / 1578 PrismaSATE BGK 4/2.5 5,000 ML @ 0 / 0 0 / 0 2000 mls/hr CRRT CONT JENNA Rx#: [id number] Vasostrict 40 UNIT In Dextrose 41.4 / 41.4 5% 100 ML @ 0.03 UNIT/MIN 4.59 mls/hr IV .[id number] JENNA Rx#: [id number] Amiodarone Drip Premix 360mg/ 200 / 200 200mL 360 mg In 200 ml @ 0.5 MG /MIN 16.667 mls/hr IVC CONT JENNA Rx#:[id number] DOBUTamine Premix 250 MG/250 ML 490.0 / 490.0 750 / 750 250 mg In 250 ml @ 2.5 MCG/KG/ MIN 19.98 mls/hr IVC .[id number] JENNA Rx#:[id number] PRECEDEX Premix 400 mcg In 100 200 / 200 200 / 200 ml @ 0.2 MCG/KG/HR 6.365 mls/hr IVC .[id number] JENNA Rx#: [id number] Heparin 25,000 UNIT/500 ML D5W 2 / 2 20 / 20 25,000 unit In 500 ml @ 9 UNIT/ KG/HR 23.382 mls/hr IVC . [id number] JENNA Rx#:[id number] Levophed 8 MG In Dextrose 5% 458 / 458 508 / 508 500 ML @ 10 MCG/MIN 38.1 mls/hr IVC CONT JENNA Rx#:[id number] Zosyn 3.375 GM In Dextrose 5% ( 100 / 100 100 / 100 Minibag+) 100 ML 100 ML @ 25 mls/hr IVPB Q8H JENNA Rx#: [id number] Output: Urine 50 / 50 Sintia 1423 / 1423 1414 / 1414 194 / 194 Straight Cath 5 / 5 Catheter 32 / 32 35 / 35 0 / 0 Gastric Drainage 0 / 0 Other: Stool Size Small Large Stool Consistency soft soft Stool Color Brown Brown Yellow # Bowel Movement Diapers 1 Blood Glucose* 165 157 - General Appearance General appearance: Present: well-developed, chronically ill, intubated EENT: Present: mucous membranes moist Neck: Present: no JVD Respiratory: Present: clear Cardiology: Present: no edema, regular rate, regular rhythm Additional Comments: obes legs Gastrointestinal: Present: absent bowel sounds Integumentary: Present: warm and dry - Lab 07/02/17 04:25 07/02/17 04:25 Most recent lab results ABG pH 7.50 pH Units (7.32-7.45) H 07/02/17 04:29 ABG pCO2 28 mmHg (35-45) L 07/02/17 04:29 ABG pO2 83 mmHg (85-104) L 07/02/17 04:29 ABG HCO3 22 mEq/L (21-27) 07/02/17 04:29 ABG O2 Saturation 97 % (95-98) 07/02/17 04:29 Calcium 7.1 mg/dL (8.6-10.8) L 07/02/17 04:25 Phosphorus 1.2 mg/dL (2.3-4.7) L 07/02/17 04:25 Magnesium 1.7 mg/dL (1.6-2.6) 07/02/17 04:25 - VTE Documentation of Mechanical Device: Intermittent pneumatic compression device Consult Discharge Plan - Plan Referrals: NONE,PCP [Primary Care Provider] -
[2017-07-02] MEDS: Aspirin 81 MG TAB.CHEW PO SCH (08:51)
[2017-07-02] MEDS: Fluconazole 200 MG/100 ML 200 MG/100 ML BAG IVPB SCH (08:52)
[2017-07-02] MEDS: Chlorhexidine Rinse 15 ML MOUTHWASH MM SCH ×2 (08:52→20:48)
[2017-07-02] MEDS: Pantoprazole 40 MG VIAL IVPB SCH (08:52)
[2017-07-02] MEDS ORDERED: Levofloxacin 750 MG/150 ML 750 MG/150 ML BAG IVPB SCH (09:00)
[2017-07-02] MEDS: Amiodarone Premix 360 MG/200 ML BAG IVC SCH ×2 (09:40→20:45)
--- NOTE | 2017-07-02 09:40 | Cardiology Progress Note ---
<Jay Moser - Last Filed: 07/02/17 11:43> Date of Encounter: 07/02/17 Time of Encounter: 09:38 Assessment and Plan (1) Elevated troponin Current Visit: Yes Status: Acute Routine EKG was taken at 4 AM found to have newly developed ST elevation in V3, V4 with no reciprocal depressions. ICU notified Cardiology at 10 AM, call to cardiology was not made at 4 AM due to continued downtrending Trops. Last trop 1.64 taken at 4:30 am, continues to downtrend. Repeat ekg at 10:[address] elevation on V3, V4, V5 with no reciprocal depression. Patient remains on 2 pressors with MAP of 65, HR ~ 105. Patient was given 1L bolus IVF and BP responded on 06/30/17. Verbal consent over the phone for left cardiac cath was given by son and daughter of the patient and witnessed by nurse, carlota. Family was educated that cardiac cath is very high risk for mortality due to patient's current status. - patient will receive cath today. DNR/CCA will temporarily be lifted for cath procedure. (2) Atrial fibrillation with RVR Current Visit: Yes Status: Acute EKG on 07/02/[address] elevation in anteriolateral leads. EKG x3 on admission shows Afib w/RVR. Patient has known history of Afib, at home she's on metoprolol xl for rate control, and warfarin for anti-coagulation. On admission, due to CHF was started on Amiodarone for rhythm control and heparin for anti-coagulation. Patient HR remains >100. Currently clinically unstable. - continue heparin for anticoagulation, and plavix for antiplatelet - continue amiodarone for rhythm control (3) Septic shock Current Visit: Yes Status: Acute per management of ICU team (4) ESRD (end stage renal disease) on dialysis Current Visit: Yes Status: Acute per management of nephrology team Discussion w patient/family: The assessment and plan as outlined above was discussed with the patient and/or family members who expressed understanding and agreement. All questions were answered. Thank you for involving us in the care of your patient. Please call with any questions. Subjective Principal diagnosis: Septic shock Interval history: Ms Wei is a 72 year old Female admitted to ICU found unresponsive, in afib w / RVR with elevated trops and CK. Patient is currently intubated due to septic shock source UTI/bacteremia. Patient remains hemodynamically unstable, with MAP <65 and HR >100. Patient BP is maxed on two 2 pressors, and Heart rhythm controlled with Amiodarone. Objective Vital Signs, Last 4 Hours Temp Pulse Resp BP Pulse Ox 07/02/17 09:00 97.4 F L 105 19 89/59 98 07/02/17 08:00 97.0 F L 103 14 91/54 98 07/02/17 07:40 14 90/59 99 07/02/17 07:00 113 14 97/52 99 07/02/17 06:00 109 18 63/59 98 General: Other (intubated and sedated) HEENT: Atraumatic, Normocephaly Neck: No JVD, Normal carotid pulses Cardiac: Other (tachycardic rate) Lungs: Normal Breath Sounds, No Wheeze, Rales, Rhonchi, Other (mechanically ventilated) Neuro: Other (sedated) Abdomen: Soft Skin: No rashes noted on visualized skin Extremities: Other (ansarca. radial, dorsalis pedis, posterior tibial pulses bilateral and equal doppler) Results 07/02/17 04:25 07/02/17 04:25 Lab Results 07/01/17 07/01/17 07/01/17 11:39 13:15 19:39 WBC Hgb Hct Plt Count INR APTT 79.1 H 127.1 H* D Sodium Potassium Chloride Carbon Dioxide BUN Creatinine Glucose Calcium Magnesium Total Bilirubin AST ALT Alkaline Phosphatase Troponin I 2.55 H* 07/02/17 07/02/17 07/02/17 04:25 04:25 04:25 WBC 20.2 H Hgb 8.9 L D Hct 26.3 L Plt Count 198 INR 2.0 APTT 53.3 H D Sodium 130 L Potassium 4.0 Chloride 97 L Carbon Dioxide 23 BUN 13 D Creatinine 0.88 Glucose 186 H Calcium 7.1 L Magnesium 1.7 Total Bilirubin 0.7 AST 49 H ALT 29 Alkaline Phosphatase 187 H Troponin I 07/02/17 04:25 WBC Hgb Hct Plt Count INR APTT Sodium Potassium Chloride Carbon Dioxide BUN Creatinine Glucose Calcium Magnesium Total Bilirubin AST ALT Alkaline Phosphatase Troponin I 1.64 H* - VTE Documentation of Mechanical Device: Intermittent pneumatic compression device Consult Discharge Plan - Plan Referrals: NONE,PCP [Primary Care Provider] - <Yuri Ibarra - Last Filed: 07/02/17 13:18> Date of Encounter: 07/02/17 Assessment and Plan (1) Shock Current Visit: Yes Status: Acute I examined this patient and my medical decision-making was reviewed with the Resident Physician. I agree with the documented findings, disposition and treatment plan as described except to the extent set forth below. 9-year-old female presents unresponsive currently intubated on the vent in the ICU with peak troponin of 5 back down to [address] elevations anteriorly this morning. Patient was taken urgently to the cardiac Paper Coating Machine Operator after risk benefits alternatives discussed with the patient's family including an elevated risk of mortality due to her septic shock at baseline. Patient's coronary arteries found to be patent with possible stress-induced cardiomyopathy with basal contraction and mid to apical ballooning of the left ventricle. We will wean off dobutamine at this time. We will follow along with intensive care managing her sepsis. Consider LV assist if patient continues to require significant support with pressors Discussion w patient/family: The assessment and plan as outlined above was discussed with the patient and/or family members who expressed understanding and agreement. All questions were answered. Thank you for involving us in the care of your patient. Please call with any questions. Objective Vital Signs, Last 4 Hours Temp Pulse Resp BP Pulse Ox 07/02/17 10:02 28 88/54 98 07/02/17 10:00 97.8 F 114 28 88/54 98 Results 07/02/17 04:25 07/02/17 04:25 Lab Results 07/01/17 07/01/17 07/02/17 13:15 19:39 04:25 WBC 20.2 H Hgb 8.9 L D Hct 26.3 L Plt Count 198 INR APTT 79.1 H 127.1 H* D Sodium Potassium Chloride Carbon Dioxide BUN Creatinine Glucose Calcium Magnesium Total Bilirubin AST ALT Alkaline Phosphatase Troponin I 07/02/17 07/02/17 07/02/17 04:25 04:25 04:25 WBC Hgb Hct Plt Count INR 2.0 APTT 53.3 H D Sodium 130 L Potassium 4.0 Chloride 97 L Carbon Dioxide 23 BUN 13 D Creatinine 0.88 Glucose 186 H Calcium 7.1 L Magnesium 1.7 Total Bilirubin 0.7 AST 49 H ALT 29 Alkaline Phosphatase 187 H Troponin I 1.64 H* 07/02/17 10:07 WBC Hgb Hct Plt Count INR 1.9 APTT 51.5 H Sodium Potassium Chloride Carbon Dioxide BUN Creatinine Glucose Calcium Magnesium Total Bilirubin AST ALT Alkaline Phosphatase Troponin I
[2017-07-02] MEDS ORDERED: *HR* Heparin 5,000 UNIT/ML VIAL IVP ONE (10:05)
[2017-07-02] MEDS ORDERED: *HR* Heparin 5,000 UNIT/ML VIAL IVP PRN ×2 (10:05)
[2017-07-02] MEDS ORDERED: Heparin 25,000 UNIT/500 ML D5W 25,000 UNIT/500 ML MLS IVC SCH (10:15)
[2017-07-02] MEDS ORDERED: *HR* Heparin 5,000 UNIT/ML VIAL ONE ×2 (10:20→10:22)
[2017-07-02 10:24] LABS: INR 1.9; Prothrombin Time 20.4 Seconds (9.4-12.1)
[2017-07-02 10:27] LABS: Activated Partial Thrombo Time 51.5 Seconds (26.0-36.0)
[2017-07-02] MEDS: Vasopressin 40 UNIT in D5% in Water 100 ML IV SCH (11:03)
[2017-07-02] MEDS: *HR* Heparin 5,000 UNIT/ML VIAL IV PRN (11:08)
[2017-07-02] MEDS: FentaNYL (PF) 1,000 MCG in 0.9 % Sodium Chloride 80 ML IVC SCH ×2 (11:11→22:13)
[2017-07-02] MEDS ORDERED: 0.9 % Sodium Chloride 1,000 ML ONE (11:20)
[2017-07-02] MEDS ORDERED: Heparin 1,000 UNITS/500 mL NS 500 ML ONE (11:20)
[2017-07-02] MEDS ORDERED: *HR* Heparin 10,000 UNIT/10 ML VIAL ONE (11:20)
[2017-07-02] MEDS ORDERED: *HR* Bivalirudin 250 MG VIAL IVC ONE (11:21)
[2017-07-02] MEDS ORDERED: Nitroglycerin 1,000 MCG/10 ML VIAL IV ONE (11:22)
--- NOTE | 2017-07-02 11:54 | Pre-Sedation Evaluation ---
Pre-sedation evaluation - Pre-sedation checklist Date of procedure: 06/30/17 Procedure: left heart cath possible PCI Recent Vitals: Last Vital Signs Temp 97.8 F 07/02/17 10:00 Pulse 114 07/02/17 10:00 Resp 28 07/02/17 10:02 BP 88/54 07/02/17 10:02 Pulse Ox 98 07/02/17 10:02 H&P (including ROS) documented in medical record: Yes Previous reaction to sedatives/anesthetics: No Dietary Status: NPO after Midnight ASA Classification *see protocol: CLASS V-Morbid complications, operation only hope of survival (Pt is intubated, on vent), [id number] to any of the above to indicate emergent
--- NOTE | 2017-07-02 12:20 | Event Note ---
Date of Encounter: 07/02/17 Time of Encounter: 12:19 attempted to see patient. patient off floor for cardiac cath procedure. will come back this afternoon to reeval patient and condition. will consider placing stent this afternoon.
--- NOTE | 2017-07-02 12:53 | Invasive Diagnostic Lab Proc ---
Name: Mitchel Wei Date of Study: 07/02/2017 Date: 1945 Ht: 64.2in Medical Record#: [id number] Age: 72 Wt: 293.21lb Gender: Female BSA: 2.31 Order #: [id number] BMI: 50.06 Physicians Procedure Physician: Bebeto Godinez DO Referring MD: Referring MD: Staff Name Position Time In GuerlineVamshiah RN Monitor 12:01 PM Jose Luis Robison RN Licensed Direct Entry Midwife 12:01 PM Karen Jara RN Licensed Direct Entry Midwife 12:01 PM Sirisha Boyer RN Licensed Direct Entry Midwife 12:01 PM Chelsie Caban RT (R) Scrub 12:02 PM Elyse May RT (R) Monitor 12:12 PM Nancy Coronado RN Licensed Direct Entry Midwife 12:13 PM Marii, Chelsie RT (R) Scrub 12:13 PM Indications Indication Non-Stemi Procedures Performed Procedure L HRT ARTERY/VENTRICLE ANGIO Pre-Procedure Checklist Informed consent is complete signed and on chart. H&P is on chart. ID band is on and ID verified with patient. Patient NPO for procedure The procedure was described for the patient and questions were answered. Blood Pressure: 91/62 ECG is on chart. Rhythm: Atrial Fibrillation with Plan of Care Patient will tolerate the procedure without complications. Adequate level of comfort will be maintained. Hemodynamics will remain stable Patient will recover from procedure without complications. Respiratory function will be maintained. Cardiac rhythm will remain stable. Patient temperature will be maintained. Patient and/or family have verbalized understanding of the procedure. Patient Education Educational Evaluation: Unable to retain information. Needs further instruction Note: patient currently intubated and sedated. not able to educate at this time Intravenous Access Time IV Size Location DC'd Fluid/Drip Rate Units RN 12:07 PM Triple Lumen Rt Femoral 12:07 PM 18g 1 1/4" Patent On Arrival Rt Antecubital 0.9NaCl Allergies ibuprofen Vital Signs Time BP (mmHg) HR (bpm) O2 Sat. RR (bpm) LOC 11:29 AM 88 / 54 114 98 % 28 0 = No reflexes elicited 12:15 PM / % 1 = Reflexes present/moves spontaneously 12:16 PM / % 1 = Reflexes present/moves spontaneously 11:56 AM 89 / 51 41 96 % 1 12:00 PM 91 / 62 148 97 % 34 12:06 PM 134 / 94 124 95 % 33 12:07 PM 133 / 81 122 % 14 12:11 PM 102 / 67 125 98 % 32 12:15 PM 91 / 74 111 100 % 29 12:20 PM 100 / 68 128 99 % 39 12:26 PM 112 / 86 108 100 % 28 12:30 PM 125 / 84 107 95 % 22 12:31 PM / % 1 = Reflexes present/moves spontaneously Procedural Medications Time Medication Dose Units Method Given By 11:52 AM Dobutamine 8 mcg/kg/min Intravenous 11:54 AM Heparin 515 units/hr Intravenous 11:54 AM Precedex Intravenous 11:55 AM fentanyl 50 mcg/min Intravenous 11:56 AM Amiodarone 0.5 mg/min Intravenous 11:57 AM Levophed 30 mcg/min Intravenous 11:58 AM vasopressin 0.03 u/min Intravenous 12:15 PM Lidocaine 2% 10 ml Subcutaneous Bebeto Godinez, DO Patrick Score Preprocedure Postprocedure Activity 1- Moves 2 extremities sustained head lift Activity 1- Moves 2 extremities sustained head lift Circulation 1- SBP+/= 20 - 50 points of pre-anesthetic level Circulation 1- SBP+/= 20 - 50 points of pre-anesthetic level Consciousness 1- Responds to verbal stimuli drowsy Consciousness 1- Responds to verbal stimuli drowsy O2 Saturation 1- Needs O2 inhalation to maintain O2 saturation of 90% O2 Saturation 1- Needs O2 inhalation to maintain O2 saturation of 90% Respiratory 1- Labored or limited respiration requires airway Respiratory 1- Labored or limited respiration requires airway Total Score 5 Total Score 5 Contrast Agent: Isovue Diagnostic Contrast: 100 ml Total Contrast: 100 ml Fluoro Dose: 270 mGy Procedure Log Time Note Enter By 11:36 AM CathStat 11:52 AM Pt arrived to laboratory analyst 2 at 11:52 [email or web address] 11:53 AM Patient arrived at 11:52 with Dobutamine Intravenous drip @ 8 mcg/kg/min [email or web address] 11:54 AM Patient arrived at 11:54 with Heparin Intravenous drip @ 515 units/hr [email or web address] 11:55 AM Patient arrived at 11:54 with Precedex Intravenous drip @ 0.8mcg/kg/hr ml/hr [email or web address] 11:55 AM Vitals capture started with the following parameters, Patient=Adult, Interval=5 min, Initial Wdygzjtz=790 mmHg, Deflation Rate=5 mmHg, Cuff placed on Right Arm 11:55 AM Patient arrived at 11:55 with fentanyl Intravenous drip @ 50 mcg/min [facility] 11:56 AM Patient arrived at 11:56 with Amiodarone Intravenous drip @ 0.5 mg/min [facility] 11:56 AM HR=41 bpm, NIBP=89/51 mmhg, SpO2=96 %, Resp=1 B/min 11:57 AM Patient arrived at 11:57 with Levophed Intravenous drip @ 30 mcg/min [facility] 11:58 AM Patient arrived at 11:58 with vasopressin Intravenous drip @ 0.03 u/min [facility] 12:00 PM JO=980 bpm, NIBP=91/62 mmhg, SpO2=97 %, Resp=34 B/min 12:00 PM Patient arrive to [facility] with Jordan from respiratory and HO De La Garza from ICU [facility] 12:01 PM Patient charges- Angio tray pack, Navilyst 3mm J, Pulse Oximetry and ACIST tubing and transducer [facility] 12:01 PM Gudelia Cunha RN Position: Monitor Time in: 12: [facility] 12:01 PM Jose Luis Robison RN Position: Licensed Direct Entry Midwife Time in: 12: [facility] 12:01 PM Karen Jara RN Position: Licensed Direct Entry Midwife Time in: 12: [facility] 12:02 PM Sirisha Boyer RN Position: Licensed Direct Entry Midwife Time in: 12: [facility] 12:02 PM Chelsie Caban RT (R) Position: Scrub Time in: 12:02 [facility] 12:02 PM Hair removed from procedure site in procedure lab using clippers. Bilateral groin prepped with Chloraprep by Karen Jara RN, safety strap applied then patient was draped. Skin intact. [facility] 12:02 PM Physician arrived 12: [facility] 12:02 PM Patient intubated and sedated, pt unable to agree with sign in [facility] 12:03 PM Case Start 12:03 PM Procedure start 12: [facility] 12:06 PM YS=548 bpm, UUNP=198/94 mmhg, SpO2=95.0 %, Resp=33 B/min 12:07 PM NIBP STAT measurement started. 12:07 PM EU=230 bpm, JZCK=036/81 mmhg, Resp=14 B/min 12:08 PM 0.9ns Connected to the 18g rac per. All other drugs connected to the tripen lumen central line in rt groin jcfatou 12:09 PM Pressure channel 2 zeroed. 12:11 PM TC=043 bpm, GUGB=497/67 mmhg, SpO2=98.0 %, Resp=32 B/min, Comment=AFIB 12:13 PM Elyse May RT (R) Position: Monitor Time in: 12:12 to relieve Gudelia Cunha RN [facility] 12:13 PM Nancy Coronado RN Position: Licensed Direct Entry Midwife Time in: 12:13 to relieve Sirisha Boyer RN [facility] 12:13 PM Chelsie Colvin RT (R) Position: Scrub Time in: 12:13 to relieve Chelsie Caban RT (R) [facility] 12:14 PM Time out performed according to hospital policy [facility] 12:15 PM Clinical Presentation: Non-STEMI [facility] 12:15 PM Time: 12:15 10 ml Lidocaine 2% to left groin Subcutaneous Given by Bebeto Godinez DO [facility] 12:15 PM Time: 12:15 Patient comfortable and pain free: Yes [facility] 12:15 PM JU=738 bpm, NIBP=91/74 mmhg, NtS8=618.0 %, Resp=29 B/min, Comment=AFIB 12:16 PM Time: 12:15LOC: 1 = Reflexes present/moves spontaneously [facility] 12:19 PM Micro-Introducer Kit utilized for sheath placement [facility] 12:20 PM RH=043 bpm, QNBU=704/68 mmhg, SpO2=99.0 %, Resp=39 B/min, Comment=AFIB 12:20 PM Access obtained by percutaneous puncture. 6Fr 10cm Terumo [place] sheath placed in left Femoral artery. [id number] [facility] 12:21 PM 5Fr FR 4 catheter inserted over the wire [facility] 12:22 PM Recorded Pressure: LV, FU=785, Condition=Condition 1 (Left Ventricle) LV 121/2/11 12:22 PM Recorded Pressure: LV, Ao, YI=351, Condition=Condition 1 (Left Ventricle) LV 112/1/10, (Aorta) Ao 91/47/70 12:23 PM Catheter selectively placed in left ventricle [email or web address] 12:23 PM Bolus angiogram of left Ventricle complete: ml/sec for a total of 10 mls [email or web address] 12:23 PM RCA angiography performed in multiple views. [email or web address] 12:23 PM Catheter removed [email or web address] 12:24 PM 6Fr JL4 Runway guide catheter was used to cannulate the PCI vessel successfully. reused? No dspellman 12:24 PM Recorded Pressure: Ao, RF=825, Condition=Condition 1 (Aorta) Ao 81/57/69 12:25 PM LCA angiography performed in multiple views. [email or web address] 12:26 PM FT=301 bpm, VFOW=218/86 mmhg, YmA5=800.0 %, Resp=28 B/min, Comment=AFIB 12:26 PM Recorded Pressure: Ao, UG=911, Condition=Condition 1 (Aorta) Ao 115/67/87 12:27 PM Recorded Pressure: Ao, MO=522, Condition=Condition 1 (Aorta) Ao 119/71/91 12:27 PM Guide catheter removed intact. [email or web address] 12:28 PM Sheath exchanged for a 7 Fr 11 cm Terumo [place] sheath [id number] to be used for ART line. [id number] dspellman 12:29 PM Procedure completed at 12:29 dspellman 12:29 PM 7Fr sheath sutured in place Left Groin. [email or web address] 12:30 PM Time: 12:15 Patient comfortable and pain free: Yes dspellmechanic falls 12:30 PM HT=621 bpm, FSMY=582/84 mmhg, SpO2=95.0 %, Resp=22 B/min, Comment=AFIB 12:31 PM Time: 12:16LOC: 1 = Reflexes present/moves spontaneously dspellmechanic [place] 12:32 PM Sign out completed: Radiation Dose 269.73 mGy Fluoro Time: 1.7 Isovue 370 - 200ml contrast 100 ml given by Bebeto Godinez DO. Complications: NoneCardiac Rehab Consult needed: NoConfirmed administered medications: Yes dspellmechanic falls 12:33 PM Isovue 370 - 200ml,1 Bottle(s) used. dspellman 12:33 PM Sheath left in place dspell[place]chan[place] 12:34 PM Post ECG Atrial Fibrillation [place]spell[place]chan[place] 12:34 PM Post Blood Pressure 125/84 [place] 12:35 PM Information taught Cardiac Cath dspell 12:35 PM Education needs Procedure, Plan of Care, and Responsibilities of Patient in Care dspell 12:35 PM Learning barriers :None dspell 12:35 PM Education Methods Verbal dspell 12:35 PM Education evaluation Able to repeat information dspell 12:35 PM Site status No bleeding/hematoma - Lt Groin as reported by Sites, Chelsie RT (R) at 12:35 [place]spellmechanic [place] 12:35 PM Opsite applied dspell 12:36 PM Report given to Holli TEAGUE Pt taken to ICU Room #2. 12:35 dspellman 12:36 PM Delay to floor No dspell 12:36 PM Family placed in ICU waiting room. dspell 12:36 PM Complications: None [facility] 12[facility]37 PM Fluoro Time: 1.7 [facility] 12:37 PM Isovue 370 - 200ml contrast 100 ml given by Bebeto Godinez DO. dspell 12:37 PM Radiation Dose 269.73 mGy [facility] 12:45 PM Time: 12:30 Patient comfortable and pain free: Yes [facility] 12:46 PM Time: 12:31LOC: 1 = Reflexes present/moves spontaneously [facility] Complications Complication None None Hemodynamics Pressures Site Systolic/A Wave Diastolic/V Wave Mean LV 121 2 11 LV 112 1 10 AO 91 47 70 AO 81 57 69 AO 115 67 87 AO 119 71 91 Post Procedure Information Blood Pressure: 125/84 mmHg Rhythm: Atrial Fibrillation Post procedural instructions were given Site Checks Time Location Status Staff Sheath In? Note 12:35 PM Lt Groin No bleeding/hematoma Sites, Chelsie RT (R) Yes 7 Fr sheath sutured in place L groin for ART line Pulses Time Site Pre-Procedure Post-Procedure Note 07/02/2017 11:29:00 AM Bilateral DP & PT 1+ 07/02/2017 12:30:00 PM Bilateral DP & PT 1+ Updated by Elyse May RT (R) on 07/02/2017 12:48:15 PM RT Beatrice electronically signed on 07/02/2017 12:49:00 PM with status of Final
[2017-07-02] MEDS ORDERED: *HR* Midazolam HCl 2 MG/2 ML VIAL ONE (13:38)
[2017-07-02 13:49] LABS: ABG Base Excess 1 mEq/L (-2 to 3); ABG HCO3 24 mEq/L (21-27); ABG Oxygen Saturation 98 % (95-98); ABG PCO2 32 mmHg (35-45); ABG PH 7.47 pH Units (7.32-7.45); ABG PO2 96 mmHg (85-104); ABG TCO2 25 mEq/L (20-26); Blood Gas Modality PRVC; Blood Gas PEEP 5 cm H2O; Blood Gas Respiration Rate 12; Blood Gas VT 450 cc
--- NOTE | 2017-07-02 15:10 | Pulmonology Progress Note ---
<JoseDaniel borrero Karl - Last Filed: 07/02/17 15:07> Date of Encounter: 07/02/17 Time of Encounter: 15:08 Assessment and Plan (1) Septic shock Current Visit: Yes Status: Acute Patient remains in septic shock requiring 3 pressors for blood pressure support. Urine positive for ESBL Escherichia coli. Levaquin has been discontinued, continue Zosyn. (2) UTI (urinary tract infection) Current Visit: No Status: Acute As above, due to ESBL Escherichia coli continue Zosyn. CT scan did reveal a 2 mm stone that may be contributing. Urology consulted and they are placing ureteral stent today. Qualifiers: Urinary tract infection type: acute cystitis Hematuria presence: without hematuria Qualified Code(s): N30.00 - Acute cystitis without hematuria (3) ESRD (end stage renal disease) on dialysis Current Visit: Yes Status: Acute Patient continues to have minimal urine output. Continue renal replacement therapy. Nephrology is following. (4) Atrial fibrillation with RVR Current Visit: Yes Status: Acute Heart rate remains relatively stable for the last 24 hours averaging in the low 100s. EKGs revealed atrial fibrillation with rapid ventricular response. This is likely related to the patient's underlying infection as well as vasopressor use. Continue IV amiodarone. Cardiology is following. (5) Stress-induced cardiomyopathy Current Visit: Yes Status: Acute Patient was noted to have ST elevation on EKG this morning. Troponin was checked and found to be decreased from previous measurements. Discussed with cardiology and they elected to take the patient to the catheter builder. Patient was found to have normal coronary arteries with decreased EF of 35% with apical akinesis and severe hypokinesis of the inferior apical wall. (6) Left ureteral stone Current Visit: Yes Status: Acute 2 mm stone found on CT scan. urology was consulted and they decided to proceed with left ureteral stent placement. Possible source of UTI. Further management per urology. (7) Decubital ulcer Current Visit: Yes Status: Acute Present on arrival. Does not appear infected. Qualifiers: Pressure ulcer location: sacral region Pressure ulcer stage: stage 2 Qualified Code(s): L89.152 - Pressure ulcer of sacral region, stage 2 (8) Diabetes mellitus Current Visit: Yes Status: Acute Blood sugars have been much improved. Continue sliding-scale insulin. Continue to monitor blood sugars. Patient remains nothing by mouth. Qualifiers: Diabetes mellitus type: type 2 Diabetes mellitus complication status: without complication Diabetes mellitus terminal gauger supervisor insulin use: unspecified terminal gauger supervisor insulin use status Qualified Code(s): E11.9 - Type 2 diabetes mellitus without complications Subjective Principal diagnosis: Septic shock Interval history: Patient seen and examined at bedside. She remains intubated and sedated. She continues to require 3 pressors for blood pressure support. She is more awake today and will respond to verbal commands. She does not appear to be in acute distress. Objective PUL Vital signs: Last Vital Signs Temp 98.1 F 07/02/17 11:00 Pulse 126 07/02/17 14:00 Resp 16 07/02/17 14:00 BP 129/71 07/02/17 14:00 Pulse Ox 98 07/02/17 14:00 General appearance: no acute distress ENT: oropharynx dry Auscultation: bilateral: diminished breath sounds Cardiovascular: irregular rhythm (Tachycardia) Gastrointestinal: hypoactive bowel sounds, soft, non-tender Extremities: no cyanosis, no clubbing, edema (2+ edema bilaterally) unable to assess due to mental status Ventilator Settings Ventilator Settings: Ventilator Settings, Last 8 Hours Ventilator Mode VC+ Ventilator Mode VC+ Ventilator Mode VC+ Ventilator Mode VC+ Ventilator Mode VC+ Ventilator Mode VC+ Ventilator Mode VC+ Ventilator Mode VC+ Ventilator Mode VC+ Ventilator Tidal Volume 450 Setting Ventilator Tidal Volume 450 Setting Ventilator Tidal Volume 450 Setting Ventilator Tidal Volume 450 Setting Ventilator Tidal Volume 500 Setting Ventilator Tidal Volume 450 Setting Ventilator Tidal Volume 500 Setting Ventilator Tidal Volume 500 Setting Ventilator Tidal Volume 500 Setting Ventilator Respiratory Rate 12 Setting Ventilator Respiratory Rate 12 Setting Ventilator Respiratory Rate 12 Setting Ventilator Respiratory Rate 12 Setting Ventilator Respiratory Rate 12 Setting Ventilator Respiratory Rate 12 Setting Ventilator Respiratory Rate 12 Setting Ventilator Respiratory Rate 12 Setting Ventilator Respiratory Rate 12 Setting Actual Respiratory Rate 16 Actual Respiratory Rate 16 Actual Respiratory Rate 22 Actual Respiratory Rate 18 Actual Respiratory Rate 19 Actual Respiratory Rate 16 Actual Respiratory Rate 17 Positive End Expiratory 5 Pressure Positive End Expiratory 5 Pressure Positive End Expiratory 5 Pressure Positive End Expiratory 5 Pressure Positive End Expiratory 5 Pressure Positive End Expiratory 5 Pressure Positive End Expiratory 5 Pressure Positive End Expiratory 5 Pressure Positive End Expiratory 5 Pressure Peak Inspiratory Airway 19 Pressure Peak Inspiratory Airway 22 Pressure Peak Inspiratory Airway 25 Pressure Peak Inspiratory Airway 19 Pressure Peak Inspiratory Airway 20 Pressure Peak Inspiratory Airway 28 Pressure Peak Inspiratory Airway 24 Pressure Results - Laboratory Findings CBC and BMP: 07/02/17 04:25 07/02/17 04:25 ABG ABG pH 7.47 pH Units (7.32-7.45) H 07/02/17 10:47 ABG pCO2 32 mmHg (35-45) L 07/02/17 10:47 ABG pO2 96 mmHg (85-104) 07/02/17 10:47 ABG O2 Saturation 98 % (95-98) 07/02/17 10:47 PT/INR, D-dimer PT 20.4 Seconds (9.4-12.1) H 07/02/17 10:07 Abnormal lab findings: Abnormal lab results WBC 20.2 K/mcL (4.3-11.1) H 07/02/17 04:25 RBC 3.28 M/mcL (3.82-4.97) L 07/02/17 04:25 Hgb 8.9 g/dL (11.5-15.4) L D 07/02/17 04:25 Hct 26.3 % (35.3-44.9) L 07/02/17 04:25 MCV 80.2 fL (83.0-100.0) L 07/02/17 04:25 MCH 27.1 pg (28.0-33.3) L 07/02/17 04:25 RDW 17.6 % (11.5-14.5) H 07/02/17 04:25 Neutrophils # 19.1 K/mcL (1.6-8.9) H 07/02/17 04:25 Lymphocytes # 0.3 K/mcL (0.6-4.6) L 07/02/17 04:25 Hypersegmented Neuts Present (Not Present) A 07/01/17 05:17 Toxic Granulation Present (Not Present) A 07/01/17 05:17 Large Platelets Present (Not Present) A 07/01/17 05:17 PT 20.4 Seconds (9.4-12.1) H 07/02/17 10:07 APTT 51.5 Seconds (26.0-36.0) H 07/02/17 10:07 Heparin Anti-Xa, Unfract 0.05 IU/mL (0.30-0.70) L 07/01/17 19:39 ABG pH 7.47 pH Units (7.32-7.45) H 07/02/17 10:47 ABG pCO2 32 mmHg (35-45) L 07/02/17 10:47 VBG pH 7.24 pH Units (7.32-7.42) L 07/01/17 01:51 Sodium 130 mEq/L (136-145) L 07/02/17 04:25 Chloride 97 mEq/L (98-109) L 07/02/17 04:25 Glucose 186 mg/dL (70-99) H 07/02/17 04:25 POC Glucose 139 (58-89) H 07/02/17 11:06 Calculated Osmolality 275 (280-300) L 07/02/17 04:25 Lactic Acid 2.8 mmol/L (0.5-2.2) H 07/01/17 05:17 Calcium 7.1 mg/dL (8.6-10.8) L 07/02/17 04:25 Ionized Calcium 0.96 mmol/L (1.15-1.35) L 07/02/17 04:25 Phosphorus 1.2 mg/dL (2.3-4.7) L 07/02/17 04:25 AST 49 Units/L (5-34) H 07/02/17 04:25 Alkaline Phosphatase 187 Units/L (38-126) H 07/02/17 04:25 Creatine Kinase 544 Units/L (29-168) H 07/01/17 05:17 Troponin I 1.64 ng/mL (0-0.03) H* 07/02/17 04:25 Serum Total Protein 4.6 g/dL (6.0-8.3) L 07/02/17 04:25 Albumin 1.5 g/dL (3.5-5.0) L 07/02/17 04:25 Albumin/Globulin Ratio 0.5 (1.1-2.2) L 07/02/17 04:25 Salicylates < 5.0 mg/dL (15-30) L 06/29/17 11:15 Acetaminophen < 1.0 mcg/mL (10-30) L 06/29/17 11:15 - Microbiology Findings Microbiology Findings: Microbiology, Last 48 Hours 06/29/17 15:05 Sputum Culture - Final Sputum Maeve albicans - Clinical Findings Intake & Output: Intake & Output 07/01/17 07/02/17 07/02/17 23:59 07:59 15:59 Intake Total 1491.4 / 1491.4 1578 / 1578 1802.6 / 1802.6 Output Total 1505 / 1505 1454 / 1454 1052 / 1052 Balance -13.6 / -13.6 124 / 124 750.6 / 750.6 - VTE Documentation of Mechanical Device: Intermittent pneumatic compression device Consult Discharge Plan - Plan Referrals: NONE,PCP [Primary Care Provider] - <Emily Smith M - Last Filed: 07/02/17 16:41> Date of Encounter: 07/02/17 Objective PUL Vital signs: Last Vital Signs Temp 98.1 F 07/02/17 11:00 Pulse 126 07/02/17 14:00 Resp 16 07/02/17 14:00 BP 129/71 07/02/17 14:00 Pulse Ox 98 07/02/17 14:00 Ventilator Settings Ventilator Settings: Ventilator Settings, Last 8 Hours Ventilator Mode VC+ Ventilator Mode VC+ Ventilator Mode VC+ Ventilator Mode VC+ Ventilator Mode VC+ Ventilator Mode VC+ Ventilator Mode VC+ Ventilator Tidal Volume 450 Setting Ventilator Tidal Volume 450 Setting Ventilator Tidal Volume 450 Setting Ventilator Tidal Volume 450 Setting Ventilator Tidal Volume 500 Setting Ventilator Tidal Volume 450 Setting Ventilator Tidal Volume 500 Setting Ventilator Respiratory Rate 12 Setting Ventilator Respiratory Rate 12 Setting Ventilator Respiratory Rate 12 Setting Ventilator Respiratory Rate 12 Setting Ventilator Respiratory Rate 12 Setting Ventilator Respiratory Rate 12 Setting Ventilator Respiratory Rate 12 Setting Actual Respiratory Rate 16 Actual Respiratory Rate 16 Actual Respiratory Rate 22 Actual Respiratory Rate 18 Actual Respiratory Rate 19 Positive End Expiratory 5 Pressure Positive End Expiratory 5 Pressure Positive End Expiratory 5 Pressure Positive End Expiratory 5 Pressure Positive End Expiratory 5 Pressure Positive End Expiratory 5 Pressure Positive End Expiratory 5 Pressure Peak Inspiratory Airway 19 Pressure Peak Inspiratory Airway 22 Pressure Peak Inspiratory Airway 25 Pressure Peak Inspiratory Airway 19 Pressure Peak Inspiratory Airway 20 Pressure Results - Laboratory Findings CBC and BMP: 07/02/17 04:25 07/02/17 04:25 ABG ABG pH 7.47 pH Units (7.32-7.45) H 07/02/17 10:47 ABG pCO2 32 mmHg (35-45) L 07/02/17 10:47 ABG pO2 96 mmHg (85-104) 07/02/17 10:47 ABG O2 Saturation 98 % (95-98) 07/02/17 10:47 PT/INR, D-dimer PT 20.4 Seconds (9.4-12.1) H 07/02/17 10:07 Abnormal lab findings: Abnormal lab results WBC 20.2 K/mcL (4.3-11.1) H 07/02/17 04:25 RBC 3.28 M/mcL (3.82-4.97) L 07/02/17 04:25 Hgb 8.9 g/dL (11.5-15.4) L D 07/02/17 04:25 Hct 26.3 % (35.3-44.9) L 07/02/17 04:25 MCV 80.2 fL (83.0-100.0) L 07/02/17 04:25 MCH 27.1 pg (28.0-33.3) L 07/02/17 04:25 RDW 17.6 % (11.5-14.5) H 07/02/17 04:25 Neutrophils # 19.1 K/mcL (1.6-8.9) H 07/02/17 04:25 Lymphocytes # 0.3 K/mcL (0.6-4.6) L 07/02/17 04:25 Hypersegmented Neuts Present (Not Present) A 07/01/17 05:17 Toxic Granulation Present (Not Present) A 07/01/17 05:17 Large Platelets Present (Not Present) A 07/01/17 05:17 PT 20.4 Seconds (9.4-12.1) H 07/02/17 10:07 APTT 51.5 Seconds (26.0-36.0) H 07/02/17 10:07 Heparin Anti-Xa, Unfract 0.05 IU/mL (0.30-0.70) L 07/01/17 19:39 ABG pH 7.47 pH Units (7.32-7.45) H 07/02/17 10:47 ABG pCO2 32 mmHg (35-45) L 07/02/17 10:47 VBG pH 7.24 pH Units (7.32-7.42) L 07/01/17 01:51 Sodium 130 mEq/L (136-145) L 07/02/17 04:25 Chloride 97 mEq/L (98-109) L 07/02/17 04:25 Glucose 186 mg/dL (70-99) H 07/02/17 04:25 POC Glucose 139 (58-89) H 07/02/17 11:06 Calculated Osmolality 275 (280-300) L 07/02/17 04:25 Lactic Acid 2.8 mmol/L (0.5-2.2) H 07/01/17 05:17 Calcium 7.1 mg/dL (8.6-10.8) L 07/02/17 04:25 Ionized Calcium 0.96 mmol/L (1.15-1.35) L 07/02/17 04:25 Phosphorus 1.2 mg/dL (2.3-4.7) L 07/02/17 04:25 AST 49 Units/L (5-34) H 07/02/17 04:25 Alkaline Phosphatase 187 Units/L (38-126) H 07/02/17 04:25 Creatine Kinase 544 Units/L (29-168) H 07/01/17 05:17 Troponin I 1.64 ng/mL (0-0.03) H* 07/02/17 04:25 Serum Total Protein 4.6 g/dL (6.0-8.3) L 07/02/17 04:25 Albumin 1.5 g/dL (3.5-5.0) L 07/02/17 04:25 Albumin/Globulin Ratio 0.5 (1.1-2.2) L 07/02/17 04:25 Salicylates < 5.0 mg/dL (15-30) L 06/29/17 11:15 Acetaminophen < 1.0 mcg/mL (10-30) L 06/29/17 11:15 - Microbiology Findings Microbiology Findings: Microbiology, Last 48 Hours 06/29/17 15:05 Sputum Culture - Final Sputum Maeve albicans - Clinical Findings Intake & Output: Intake & Output 07/02/17 07/02/17 07/02/17 07:59 15:59 23:59 Intake Total 1578 / 1578 1802.6 / 1802.6 Output Total 1454 / 1454 1052 / 1052 Balance 124 / 124 750.6 / 750.6 - Attending Attestation I examined this patient and my medical decision-making was reviewed with the Resident Physician. I agree with the documented findings, disposition and treatment plan as described except to the extent set forth below. Patient seen and examined. Labs, radiology, chart personally reviewed. 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 Again patient is not stable hemodynamically for spontaneous breathing trial. Cardiovascular: Patient remain very unstable. She will continue to be with a vasopressors and attempted to stop one of them, however her blood pressure significantly dropped. Discussed with the etl application developer and status post cardiac catheterization with no intervention. At this time it appears to be a stress related cardiac events and supportive care is the main treatment. GI: Nutrition per dietary and GI prophylaxis per routine Heme: DVT prophylaxis per routine. Heparin was stopped and then was restarted again. Patient with evidence of coagulopathy. ID: Continue antibiotics and plan to de-escalation Renal; urine out put and renal funtion reviewed. Patient is on Sintia. Endorcine: blood glucose is monitored Lines: all lines checked and no evidence of infections Skin: skin care to prevent pressure ulcers per nursing routine care Overall prognosis is poor. Patient critically ill with high mortality rate. Family has been updated. I spent 35 min of Critical Care time with this patient. It involved decision making of high complexity to assess, manipulate, and support vital organ system failure and/or to prevent further life threatening deterioration of the patient' s condition. The time involved in the performance of separately reportable procedures was not counted toward critical care time.
--- NOTE | 2017-07-02 16:37 | Urology Procedure Note ---
Date of Encounter: 07/02/17 Time of Encounter: 16:23 Procedures:Urology - Cystoscopy Time out performed: Yes Prophylactic Antibiotics Given: Yes Additional comments: Informed consent obtained by family. Patient was preped and draped after timeout. I inserted the cystoscope into the patient's bladder. The bladder was markedly irritated. I was able to eventually cannulate the left ureteral orifice using a open-ended ureteral catheter. Glidewire was then placed into the left kidney using x-ray guidance. I then placed a 6 x 26 cm stent with good curl seen in the kidney and in the bladder using x-ray guidance. Catheter was then replaced into the patient's bladder. No gross pus was seen at the end of the procedure.
--- NOTE | 2017-07-02 17:09 | Electrocardiograph Report ---
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
[2017-07-03] MEDS: Piperacillin/Tazobactam 3.375 GM in D5% in Water (Mini-Bag+) 100 ML IVPB SCH ×4 (00:34→23:07)
[2017-07-03] MEDS: Dexmedetomidine HCl 400 MCG/100 ML MLS IVC SCH ×5 (00:34→23:09)
[2017-07-03] MEDS: Lacri-Lube 3.5 GM TUBE BOTH EYES SCH ×7 (00:35→23:10)
[2017-07-03] MEDS: Norepinephrine 8 MG in D5% in Water 500 ML IVC SCH ×3 (00:35→18:41)
[2017-07-03] MEDS: Insulin LISPRO 300 UNITS/3 ML VIAL SQ SCH ×5 (00:37→23:31)
[2017-07-03] MEDS: PrismaSATE BGK 4/2.5 5,000 ML CRRT SCH ×9 (02:56→23:15)
[2017-07-03] MEDS: *HR* Midazolam HCl 5 MG/5 ML VIAL IVP PRN ×3 (04:09→09:36)
[2017-07-03] MEDS: Hydrocortisone Sodium Succ 100 MG/2 ML VIAL IVP SCH ×4 (04:10→20:17)
[2017-07-03 04:28] LABS: INR 1.9; Prothrombin Time 20.9 Seconds (9.4-12.1)
[2017-07-03 04:39] LABS: Basophils % 0.1 %; Eosinophils % 0.1 %; Hematocrit 24.8 % (35.3-44.9); Hemoglobin 8.3 g/dL (11.5-15.4); Immature Granulocytes % 1.1 % (0-4); Lymphocytes # 0.5 K/mcL (0.6-4.6); Lymphocytes % 2.7 %; Mean Corpuscular HGB Conc 33.5 g/dL (31.6-35.5); Mean Corpuscular Hemoglobin 26.9 pg (28.0-33.3); Mean Corpuscular Volume 80.5 fL (83.0-100.0); Mean Platelet Volume 10.6 fL (9.4-12.4); Monocytes # 0.5 K/mcL (0.0-1.3); Monocytes % 2.7 %; Neutrophils # 15.8 K/mcL (1.6-8.9); Platelet Count 199 K/mcL (140-400); Red Blood Count 3.08 M/mcL (3.82-4.97); Red Cell Distribution Width 17.7 % (11.5-14.5); Segmented Neutrophils % 93.3 %
[2017-07-03 04:40] LABS: Alanine Aminotransferase 30 Units/L (0-55); Albumin/Globulin Ratio 0.5 (1.1-2.2); Alkaline Phosphatase 183 Units/L (38-126); Aspartate Amino Transferase 38 Units/L (5-34); BUN/Creatinine Ratio 14 (6-26); Bilirubin,Direct 0.3 mg/dL (0.0-0.5); Bilirubin,Indirect 0.2 mg/dL (0.0-1.2); Bilirubin,Total 0.5 mg/dL (0.2-1.2); Blood Urea Nitrogen 10 mg/dL (7-20); Calcium 7.2 mg/dL (8.6-10.8); Carbon Dioxide 23 mEq/L (19-29); Chloride 98 mEq/L (98-109); Glucose 146 mg/dL (70-99); Magnesium 1.8 mg/dL (1.6-2.6); Osmolality,Calculated 270 (280-300); Potassium 3.5 mEq/L (3.5-4.5); Sodium 129 mEq/L (136-145); Total Protein 4.6 g/dL (6.0-8.3); eGFR For African Americans > 60 (> 60); eGFR For Non-African Americans > 60 (> 60)
[2017-07-03 04:46] LABS: Ionized Calcium 1.02 mmol/L (1.15-1.35)
[2017-07-03 05:01] LABS: ABG Base Excess 1 mEq/L (-2 to 3); ABG HCO3 26 mEq/L (21-27); ABG Oxygen Saturation 97 % (95-98); ABG PCO2 39 mmHg (35-45); ABG PH 7.42 pH Units (7.32-7.45); ABG PO2 91 mmHg (85-104); ABG TCO2 27 mEq/L (20-26); Blood Gas Modality ASSIST CONTROL; Blood Gas PEEP 5 cm H2O; Blood Gas Respiration Rate 12; Blood Gas VT 450 cc
[2017-07-03 05:07] LABS: Albumin 1.6 g/dL (3.5-5.0)
[2017-07-03] MEDS: Phenylephrine 50 MG in D5% in Water 250 ML IVC SCH ×2 (05:17→23:07)
[2017-07-03] MEDS ORDERED: Sodium Phosphate 30 MMOL in D5% in Water 100 ML IVPB ONE (05:57)
[2017-07-03] MEDS: 0.9 % Sodium Chloride 1,000 ML PRIME SCH ×2 (06:35→15:42)
[2017-07-03] MEDS: FentaNYL (PF) 1,000 MCG in 0.9 % Sodium Chloride 80 ML IVC SCH ×2 (07:42→21:00)
--- NOTE | 2017-07-03 08:16 | Urology Progress Note ---
Date of Encounter: 07/03/17 Time of Encounter: 08:14 - Assessment and Plan (1) Left ureteral stone Current Visit: Yes Status: Acute Assessment and plan: sp stenting. patient can keep this stent in place for 6 months or more. ok to have patient f/u with me after full recovery. call with questions. Progress Note Narrative: patient seen. slight improvement overnight. urine with some blood in tubing Objective Initial Vital Signs Resp BP Pulse Ox 14 49/35 95 06/29/17 10:20 06/29/17 10:20 06/29/17 10:20 - Abdomen Present: soft - Genitourinary Urine Appearance: Present: Small Blood Clots - Labs 07/03/17 04:18 07/03/17 04:18 Diabetes panel 07/03/17 Range/Units 04:18 Sodium 129 L (136-145) mEq/L Potassium 3.5 (3.5-4.5) mEq/L Chloride 98 (98-109) mEq/L Carbon Dioxide 23 (19-29) mEq/L BUN 10 (7-20) mg/dL Creatinine 0.74 (0.57-1.11) mg/dL Glucose 146 H (70-99) mg/dL Calcium 7.2 L (8.6-10.8) mg/dL AST 38 H (5-34) Units/L ALT 30 (0-55) Units/L Alkaline Phosphatase 183 H (38-126) Units/L Albumin 1.6 L (3.5-5.0) g/dL Calcium panel 07/03/17 Range/Units 04:18 Calcium 7.2 L (8.6-10.8) mg/dL Phosphorus 1.0 L* (2.3-4.7) mg/dL Albumin 1.6 L (3.5-5.0) g/dL Pituitary panel 07/03/17 Range/Units 04:18 Sodium 129 L (136-145) mEq/L Potassium 3.5 (3.5-4.5) mEq/L Chloride 98 (98-109) mEq/L Carbon Dioxide 23 (19-29) mEq/L BUN 10 (7-20) mg/dL Creatinine 0.74 (0.57-1.11) mg/dL Glucose 146 H (70-99) mg/dL Calcium 7.2 L (8.6-10.8) mg/dL Adrenal panel 07/03/17 Range/Units 04:18 Sodium 129 L (136-145) mEq/L Potassium 3.5 (3.5-4.5) mEq/L Chloride 98 (98-109) mEq/L Carbon Dioxide 23 (19-29) mEq/L BUN 10 (7-20) mg/dL Creatinine 0.74 (0.57-1.11) mg/dL Glucose 146 H (70-99) mg/dL Calcium 7.2 L (8.6-10.8) mg/dL Total Bilirubin 0.5 (0.2-1.2) mg/dL AST 38 H (5-34) Units/L ALT 30 (0-55) Units/L Alkaline Phosphatase 183 H (38-126) Units/L Albumin 1.6 L (3.5-5.0) g/dL - VTE Documentation of Mechanical Device: Intermittent pneumatic compression device Consult Discharge Plan - Plan Referrals: NONE,PCP [Primary Care Provider] -
[2017-07-03] MEDS: Pantoprazole 40 MG VIAL IVPB SCH (08:46)
[2017-07-03] MEDS: Chlorhexidine Rinse 15 ML MOUTHWASH MM SCH ×2 (08:50→20:18)
[2017-07-03] MEDS: Aspirin 81 MG TAB.CHEW PO SCH (08:51)
--- NOTE | 2017-07-03 09:04 | Electrocardiograph Report ---
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
--- NOTE | 2017-07-03 09:06 | Nephrology Progress Note ---
Date of Encounter: 07/03/17 Time of Encounter: 08:45 - Assessment and Plan (1) ESRD (end stage renal disease) on dialysis Current Visit: Yes Status: Acute Continue CVVH, no net fluid removal, hemodynamically unstable. Subjective Principal diagnosis: Septic shock Interval history: Intubated, on one pressor. CVVH. Objective - Vital Signs Vital signs: Vital Signs Temp Pulse Pulse Resp BP Pulse Ox 07/03/17 07:50 97.5 F L 07/03/17 07:49 12 72/48 98 07/03/17 07:00 97.2 F L 80 14 125/72 98 07/03/17 06:00 97 F L 81 14 123/69 98 07/03/17 05:25 16 124/66 98 07/03/17 05:00 97.8 F 94 85 15 121/68 98 07/03/17 04:00 97.6 F 86 15 121/65 98 07/03/17 03:47 103 07/03/17 03:43 15 105/57 98 07/03/17 03:00 98.2 F 98 15 110/57 98 07/03/17 02:00 98.3 F 87 15 107/66 98 07/03/17 01:14 17 105/55 97 07/03/17 01:00 98.7 F 108 105 17 112/65 97 07/03/17 00:00 98.7 F 103 17 109/58 97 07/02/17 23:13 19 126/61 98 07/02/17 23:00 98.1 F 111 19 116/59 97 07/02/17 22:00 98 F 105 17 97/57 97 07/02/17 21:32 17 102/47 97 07/02/17 21:00 97.9 F 105 105 15 100/47 97 07/02/17 20:00 98 F 112 17 122/85 98 07/02/17 19:30 18 94/46 97 07/02/17 18:59 97.1 F L 100 18 90/46 98 07/02/17 18:33 17 114/50 98 07/02/17 18:00 96.3 F L 110 14 114/50 98 07/02/17 17:35 17 131/90 100 07/02/17 17:00 96 F L 98 13 103/40 96 07/02/17 16:00 95.9 F L 110 110 15 111/64 100 07/02/17 15:30 110 07/02/17 15:00 95.0 F L 116 15 121/62 99 07/02/17 14:00 126 16 129/71 98 07/02/17 13:45 104 13 128/89 97 07/02/17 13:30 112 14 134/93 99 07/02/17 13:15 107 18 133/89 99 07/02/17 13:00 107 110 13 126/90 96 07/02/17 11:30 121 07/02/17 11:00 98.1 F 119 18 88/59 99 07/02/17 10:02 28 88/54 98 07/02/17 10:00 97.8 F 114 28 88/54 98 Intake and Output 07/02/17 07/03/17 07/03/17 23:59 07:59 15:59 Intake Total 1827 / 1827 1437 / 1437 100 / 100 Output Total 1721 / 1721 1780 / 1780 Balance 106 / 106 -343 / -343 100 / 100 Intake: IV Fluids 1827 / 1827 1437 / 1437 100 / 100 PrismaSATE BGK 4/2.5 5,000 ML @ 0 / 0 0 / 0 2000 mls/hr CRRT CONT JENNA Rx#: [id number] Vasostrict 40 UNIT In Dextrose / 26 5% 100 ML @ 0.03 UNIT/MIN 4.59 mls/hr IV .[id number] JENNA Rx#: [id number] Amiodarone Drip Premix 360mg/ 200 / 200 200mL 360 mg In 200 ml @ 0.5 MG /MIN 16.667 mls/hr IVC CONT JENNA Rx#:[id number] DOBUTamine Premix 250 MG/250 ML 500 / 500 393 / 393 250 mg In 250 ml @ 2.5 MCG/KG/ MIN 19.98 mls/hr IVC .[id number] JENNA Rx#:[id number] PRECEDEX Premix 400 mcg In 100 200 / 200 200 / 200 ml @ 0.2 MCG/KG/HR 6.365 mls/hr IVC .[id number] JENNA Rx#: [id number] FentaNYL (PF) 1,000 MCG In 0.9 100 / 100 100 / 100 % Sodium Chloride 80 ML @ 50 MCG/HR 5 mls/hr IVC CONT JENNA Rx #:[id number] Levophed 8 MG In Dextrose 5% 701 / 701 644 / 644 500 ML @ 10 MCG/MIN 38.1 mls/hr IVC CONT JENNA Rx#:[id number] Zosyn 3.375 GM In Dextrose 5% ( 100 / 100 100 / 100 Minibag+) 100 ML 100 ML @ 25 mls/hr IVPB Q8H JENNA Rx#: [id number] Potassium Chloride 10 mEq/100mL 100 / 100 10 meq In 100 ml @ 100 mls/hr IVPB Q1H JENNA Rx#:[id number] Output: Sintia 1591 / 1591 1683 / 1683 Catheter 80 / 80 97 / 97 Gastric Drainage 50 / 50 Other: Stool Size Small Stool Consistency soft Stool Color Thony Colored # Bowel Movements 1 Blood Glucose* 154 123 - General Appearance General appearance: Present: well-developed, well-nourished, appears started age , obese EENT: Present: mucous membranes moist Neck: Present: no JVD Respiratory: Present: clear Cardiology: Present: edema, regular rate, regular rhythm Additional Comments: mild Gastrointestinal: Present: hypoactive bowel sounds Integumentary: Present: warm and dry - Lab 07/03/17 04:18 07/03/17 04:18 Most recent lab results ABG pH 7.42 pH Units (7.32-7.45) 07/03/17 04:57 ABG pCO2 39 mmHg (35-45) 07/03/17 04:57 ABG pO2 91 mmHg (85-104) 07/03/17 04:57 ABG HCO3 26 mEq/L (21-27) 07/03/17 04:57 ABG O2 Saturation 97 % (95-98) 07/03/17 04:57 Calcium 7.2 mg/dL (8.6-10.8) L 07/03/17 04:18 Phosphorus 1.0 mg/dL (2.3-4.7) L* 07/03/17 04:18 Magnesium 1.8 mg/dL (1.6-2.6) 07/03/17 04:18 - VTE Documentation of Mechanical Device: Intermittent pneumatic compression device Consult Discharge Plan - Plan Referrals: NONE,PCP [Primary Care Provider] -
[2017-07-03] MEDS: Fluconazole 200 MG/100 ML 200 MG/100 ML BAG IVPB SCH (09:36)
[2017-07-03] MEDS ORDERED: 0.9 % Sodium Chloride 250 ML ONE (10:25)
[2017-07-03] MEDS: Amiodarone Premix 360 MG/200 ML BAG IVC SCH ×2 (10:41→23:08)
[2017-07-03] MEDS ORDERED: *HR* Midazolam HCl 2 MG/2 ML VIAL ONE (11:28)
[2017-07-03] MEDS: *HR* Midazolam HCl 2 MG/2 ML VIAL IVP PRN ×4 (11:31→17:42)
--- NOTE | 2017-07-03 11:31 | Cardiology Progress Note ---
<Jay Moser - Last Filed: 07/03/17 11:35> Date of Encounter: 07/03/17 Time of Encounter: 11:30 Assessment and Plan (1) Elevated troponin Current Visit: Yes Status: Acute Patient received Cath yesterday, no CAD identified. Post cath, patient MAP remained >65 and HR <100. Most likely stress-cardiomyopathy. - continue amiodarone for now - D/C dobutamine (2) Atrial fibrillation with RVR Current Visit: Yes Status: Acute EKG on 07/02/[address] elevation in anteriolateral leads. EKG x3 on admission shows Afib w/RVR. Patient has known history of Afib, at home she's on metoprolol xl for rate control, and warfarin for anti-coagulation. On admission, due to CHF was started on Amiodarone for rhythm control and heparin for anti-coagulation. Patient has clinically improved - continue heparin for anticoagulation, and plavix for antiplatelet - continue amiodarone for rhythm control (3) Septic shock Current Visit: Yes Status: Acute per management of ICU team (4) ESRD (end stage renal disease) on dialysis Current Visit: Yes Status: Acute per management of nephrology team Discussion w patient/family: The assessment and plan as outlined above was discussed with the patient and/or family members who expressed understanding and agreement. All questions were answered. Thank you for involving us in the care of your patient. Please call with any questions. Subjective Principal diagnosis: Septic shock Interval history: Ms Wei is a 72 year old Female admitted to ICU found unresponsive, in afib w / RVR with elevated trops and CK. Patient is currently intubated due to septic shock source UTI/bacteremia. Patient remains intubated. No events overnight Objective Vital Signs, Last 4 Hours Temp Pulse Resp BP Pulse Ox 07/03/17 11:22 98.4 F 95 18 112/62 98 07/03/17 11:03 13 115/60 98 07/03/17 09:55 84 15 105/50 98 07/03/17 09:49 12 113/65 98 07/03/17 07:50 97.5 F L 07/03/17 07:49 12 72/48 98 General: Other (intubated, non-responsive) HEENT: Atraumatic, Normocephaly Neck: Normal carotid pulses Cardiac: Reg Rate and Rhythm, Normal S1 and S2, No Murmur Lungs: Normal Breath Sounds, No Wheeze, Rales, Rhonchi Abdomen: Soft Skin: No rashes noted on visualized skin Extremities: No Clubbing, No Cyanosis, Normal Pulses, Other (Anasarca. extremities are warm) Results 07/03/17 04:18 07/03/17 04:18 Lab Results 07/03/17 07/03/17 07/03/17 04:18 04:18 04:18 WBC 17.0 H Hgb 8.3 L Hct 24.8 L Plt Count 199 INR 1.9 Sodium 129 L Potassium 3.5 Chloride 98 Carbon Dioxide 23 BUN 10 Creatinine 0.74 Glucose 146 H Calcium 7.2 L Magnesium 1.8 Total Bilirubin 0.5 AST 38 H ALT 30 Alkaline Phosphatase 183 H - VTE Documentation of Mechanical Device: Intermittent pneumatic compression device Consult Discharge Plan - Plan Referrals: NONE,PCP [Primary Care Provider] - <Yuri Ibarra - Last Filed: 07/03/17 11:51> Date of Encounter: 07/03/17 Assessment and Plan (1) Shock Current Visit: Yes Status: Acute I examined this patient and my medical decision-making was reviewed with the Resident Physician. I agree with the documented findings, disposition and treatment plan as described except to the extent set forth below. 72 YOF with patent coronaries and possible Takatsubo off dobutamine and on lower dose of levo continues to be sedated on vent. NSR on amiodarone drip, continue drip for 3-4 gram load. Sepsis shock per CCM team. Discussion w patient/family: The assessment and plan as outlined above was discussed with the patient and/or family members who expressed understanding and agreement. All questions were answered. Thank you for involving us in the care of your patient. Please call with any questions. Objective Vital Signs, Last 4 Hours Temp Pulse Resp BP Pulse Ox 07/03/17 11:22 98.4 F 95 18 112/62 98 07/03/17 11:03 13 115/60 98 07/03/17 09:55 84 15 105/50 98 07/03/17 09:49 12 113/65 98 07/03/17 07:50 97.5 F L 07/03/17 07:49 12 72/48 98 Results 07/03/17 04:18 07/03/17 04:18 Lab Results 07/03/17 07/03/17 07/03/17 04:18 04:18 04:18 WBC 17.0 H Hgb 8.3 L Hct 24.8 L Plt Count 199 INR 1.9 Sodium 129 L Potassium 3.5 Chloride 98 Carbon Dioxide 23 BUN 10 Creatinine 0.74 Glucose 146 H Calcium 7.2 L Magnesium 1.8 Total Bilirubin 0.5 AST 38 H ALT 30 Alkaline Phosphatase 183 H
--- NOTE | 2017-07-03 15:02 | Pulmonology Progress Note ---
<Daniel Garcia - Last Filed: 07/03/17 15:51> Date of Encounter: 07/03/17 Time of Encounter: 15:02 Assessment and Plan (1) Septic shock Current Visit: Yes Status: Acute Patient remains in septic shock however she does appear to be improving as she is only requiring Levophed for blood pressure support. Urine positive for ESBL Escherichia coli. Levaquin has been discontinued, continue Zosyn. (2) UTI (urinary tract infection) Current Visit: No Status: Acute As above, due to ESBL Escherichia coli continue Zosyn. CT scan did reveal a 2 mm stone that may be contributing. Postop day one ureteral stent. Qualifiers: Urinary tract infection type: acute cystitis Hematuria presence: without hematuria Qualified Code(s): N30.00 - Acute cystitis without hematuria (3) ESRD (end stage renal disease) on dialysis Current Visit: Yes Status: Acute Patient continues to have minimal urine output. Continue renal replacement therapy. Nephrology is following. (4) Atrial fibrillation with RVR Current Visit: Yes Status: Acute Heart rate has stabilized and is in the 70s to 80s. Heart rate does elevate when the patient is moved. Continue IV amiodarone for at least another 24 hours per cardiology. Cardiology is following. We will hold anticoagulation at this time given the patient's critical illness and high risk for bleeding (5) Stress-induced cardiomyopathy Current Visit: Yes Status: Acute Patient was found to have normal coronary arteries with decreased EF of 35% with apical akinesis and severe hypokinesis of the inferior apical wall on heart cath yesterday. Hemodynamics appear to be improving (6) Left ureteral stone Current Visit: Yes Status: Acute Postop day one ureteral stent. (7) Decubital ulcer Current Visit: Yes Status: Acute Present on arrival. Does not appear infected. Qualifiers: Pressure ulcer location: sacral region Pressure ulcer stage: stage 2 Qualified Code(s): L89.152 - Pressure ulcer of sacral region, stage 2 (8) Diabetes mellitus Current Visit: Yes Status: Acute Blood sugars have been much improved. Continue sliding-scale insulin. Continue to monitor blood sugars. 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 She remains intubated and sedated. Her requirements for vasopressors decreased and she is only requiring one pressure for support at this time. She is more awake today and will respond to verbal commands. She does not appear to be in acute distress. Objective PUL Vital signs: Last Vital Signs Temp 98.4 F 07/03/17 11:22 Pulse 80 07/03/17 14:00 Resp 12 07/03/17 14:00 BP 125/71 07/03/17 14:00 Pulse Ox 98 07/03/17 14:00 General appearance: no acute distress ENT: oropharynx dry Auscultation: bilateral: diminished breath sounds Cardiovascular: irregular rhythm (Tachycardia) Gastrointestinal: hypoactive bowel sounds, soft, non-tender Extremities: no cyanosis, no clubbing, edema (2+) unable to assess due to mental status Ventilator Settings Ventilator Settings: Ventilator Settings, Last 8 Hours Ventilator Mode VC+ Ventilator Mode VC+ Ventilator Mode VC+ Ventilator Mode VC+ Ventilator Tidal Volume 450 Setting Ventilator Tidal Volume 450 Setting Ventilator Tidal Volume 450 Setting Ventilator Tidal Volume 450 Setting Ventilator Respiratory Rate 12 Setting Ventilator Respiratory Rate 12 Setting Ventilator Respiratory Rate 12 Setting Ventilator Respiratory Rate 12 Setting Actual Respiratory Rate 36 Actual Respiratory Rate 14 Actual Respiratory Rate 12 Actual Respiratory Rate 12 Positive End Expiratory 5 Pressure Positive End Expiratory 5 Pressure Positive End Expiratory 5 Pressure Positive End Expiratory 5 Pressure Peak Inspiratory Airway 41 Pressure Peak Inspiratory Airway 21 Pressure Peak Inspiratory Airway 24 Pressure Peak Inspiratory Airway 24 Pressure Results - Laboratory Findings CBC and BMP: 07/03/17 04:18 07/03/17 04:18 ABG ABG pH 7.42 pH Units (7.32-7.45) 07/03/17 04:57 ABG pCO2 39 mmHg (35-45) 07/03/17 04:57 ABG pO2 91 mmHg (85-104) 07/03/17 04:57 ABG O2 Saturation 97 % (95-98) 07/03/17 04:57 PT/INR, D-dimer PT 20.9 Seconds (9.4-12.1) H 07/03/17 04:18 Abnormal lab findings: Abnormal lab results WBC 17.0 K/mcL (4.3-11.1) H 07/03/17 04:18 RBC 3.08 M/mcL (3.82-4.97) L 07/03/17 04:18 Hgb 8.3 g/dL (11.5-15.4) L 07/03/17 04:18 Hct 24.8 % (35.3-44.9) L 07/03/17 04:18 MCV 80.5 fL (83.0-100.0) L 07/03/17 04:18 MCH 26.9 pg (28.0-33.3) L 07/03/17 04:18 RDW 17.7 % (11.5-14.5) H 07/03/17 04:18 Neutrophils # 15.8 K/mcL (1.6-8.9) H 07/03/17 04:18 Lymphocytes # 0.5 K/mcL (0.6-4.6) L 07/03/17 04:18 Hypersegmented Neuts Present (Not Present) A 07/01/17 05:17 Toxic Granulation Present (Not Present) A 07/01/17 05:17 Large Platelets Present (Not Present) A 07/01/17 05:17 PT 20.9 Seconds (9.4-12.1) H 07/03/17 04:18 APTT 51.5 Seconds (26.0-36.0) H 07/02/17 10:07 Heparin Anti-Xa, Unfract 0.05 IU/mL (0.30-0.70) L 07/01/17 19:39 ABG Total CO2 27 mEq/L (20-26) H 07/03/17 04:57 VBG pH 7.24 pH Units (7.32-7.42) L 07/01/17 01:51 Sodium 129 mEq/L (136-145) L 07/03/17 04:18 Glucose 146 mg/dL (70-99) H 07/03/17 04:18 POC Glucose 120 (58-89) H 07/03/17 11:21 Calculated Osmolality 270 (280-300) L 07/03/17 04:18 Lactic Acid 2.8 mmol/L (0.5-2.2) H 07/01/17 05:17 Calcium 7.2 mg/dL (8.6-10.8) L 07/03/17 04:18 Ionized Calcium 1.02 mmol/L (1.15-1.35) L 07/03/17 04:18 Phosphorus 1.0 mg/dL (2.3-4.7) L* 07/03/17 04:18 AST 38 Units/L (5-34) H 07/03/17 04:18 Alkaline Phosphatase 183 Units/L (38-126) H 07/03/17 04:18 Creatine Kinase 544 Units/L (29-168) H 07/01/17 05:17 Troponin I 1.64 ng/mL (0-0.03) H* 07/02/17 04:25 Serum Total Protein 4.6 g/dL (6.0-8.3) L 07/03/17 04:18 Albumin 1.6 g/dL (3.5-5.0) L 07/03/17 04:18 Albumin/Globulin Ratio 0.5 (1.1-2.2) L 07/03/17 04:18 Salicylates < 5.0 mg/dL (15-30) L 06/29/17 11:15 Acetaminophen < 1.0 mcg/mL (10-30) L 06/29/17 11:15 - Microbiology Findings Microbiology Findings: Microbiology, Last 48 Hours 06/29/17 15:05 Sputum Culture - Final Sputum Maeve albicans - Clinical Findings Intake & Output: Intake & Output 07/02/17 07/03/17 07/03/17 23:59 07:59 15:59 Intake Total 1827 / 1827 1437 / 1437 872 / 872 Output Total 1721 / 1721 1780 / 1780 925 / 925 Balance 106 / 106 -343 / -343 -53 / -53 - VTE Documentation of Mechanical Device: Intermittent pneumatic compression device Consult Discharge Plan - Plan Referrals: NONE,PCP [Primary Care Provider] - <Emily Smith - Last Filed: 07/03/17 16:11> Date of Encounter: 07/03/17 Objective PUL Vital signs: Last Vital Signs Temp 98.4 F 07/03/17 11:22 Pulse 79 07/03/17 15:09 Resp 12 07/03/17 15:09 BP 120/80 07/03/17 15:09 Pulse Ox 99 07/03/17 15:09 General appearance: lethargic Neck: no JVD Effort: normal Ventilator Settings Ventilator Settings: Ventilator Settings, Last 8 Hours Ventilator Mode VC+ Ventilator Mode VC+ Ventilator Mode VC+ Ventilator Mode VC+ Ventilator Tidal Volume 450 Setting Ventilator Tidal Volume 450 Setting Ventilator Tidal Volume 450 Setting Ventilator Tidal Volume 450 Setting Ventilator Respiratory Rate 12 Setting Ventilator Respiratory Rate 12 Setting Ventilator Respiratory Rate 12 Setting Ventilator Respiratory Rate 12 Setting Actual Respiratory Rate 27 Actual Respiratory Rate 36 Actual Respiratory Rate 14 Actual Respiratory Rate 12 Positive End Expiratory 5 Pressure Positive End Expiratory 5 Pressure Positive End Expiratory 5 Pressure Positive End Expiratory 5 Pressure Peak Inspiratory Airway 23 Pressure Peak Inspiratory Airway 41 Pressure Peak Inspiratory Airway 21 Pressure Peak Inspiratory Airway 24 Pressure Results - Laboratory Findings CBC and BMP: 07/03/17 04:18 07/03/17 04:18 ABG ABG pH 7.42 pH Units (7.32-7.45) 07/03/17 04:57 ABG pCO2 39 mmHg (35-45) 07/03/17 04:57 ABG pO2 91 mmHg (85-104) 07/03/17 04:57 ABG O2 Saturation 97 % (95-98) 07/03/17 04:57 PT/INR, D-dimer PT 20.9 Seconds (9.4-12.1) H 07/03/17 04:18 Abnormal lab findings: Abnormal lab results WBC 17.0 K/mcL (4.3-11.1) H 07/03/17 04:18 RBC 3.08 M/mcL (3.82-4.97) L 07/03/17 04:18 Hgb 8.3 g/dL (11.5-15.4) L 07/03/17 04:18 Hct 24.8 % (35.3-44.9) L 07/03/17 04:18 MCV 80.5 fL (83.0-100.0) L 07/03/17 04:18 MCH 26.9 pg (28.0-33.3) L 07/03/17 04:18 RDW 17.7 % (11.5-14.5) H 07/03/17 04:18 Neutrophils # 15.8 K/mcL (1.6-8.9) H 07/03/17 04:18 Lymphocytes # 0.5 K/mcL (0.6-4.6) L 07/03/17 04:18 Hypersegmented Neuts Present (Not Present) A 07/01/17 05:17 Toxic Granulation Present (Not Present) A 07/01/17 05:17 Large Platelets Present (Not Present) A 07/01/17 05:17 PT 20.9 Seconds (9.4-12.1) H 07/03/17 04:18 APTT 51.5 Seconds (26.0-36.0) H 07/02/17 10:07 Heparin Anti-Xa, Unfract 0.05 IU/mL (0.30-0.70) L 07/01/17 19:39 ABG Total CO2 27 mEq/L (20-26) H 07/03/17 04:57 VBG pH 7.24 pH Units (7.32-7.42) L 07/01/17 01:51 Sodium 129 mEq/L (136-145) L 07/03/17 04:18 Glucose 146 mg/dL (70-99) H 07/03/17 04:18 POC Glucose 120 (58-89) H 07/03/17 11:21 Calculated Osmolality 270 (280-300) L 07/03/17 04:18 Lactic Acid 2.8 mmol/L (0.5-2.2) H 07/01/17 05:17 Calcium 7.2 mg/dL (8.6-10.8) L 07/03/17 04:18 Ionized Calcium 1.02 mmol/L (1.15-1.35) L 07/03/17 04:18 Phosphorus 1.0 mg/dL (2.3-4.7) L* 07/03/17 04:18 AST 38 Units/L (5-34) H 07/03/17 04:18 Alkaline Phosphatase 183 Units/L (38-126) H 07/03/17 04:18 Creatine Kinase 544 Units/L (29-168) H 07/01/17 05:17 Troponin I 1.64 ng/mL (0-0.03) H* 07/02/17 04:25 Serum Total Protein 4.6 g/dL (6.0-8.3) L 07/03/17 04:18 Albumin 1.6 g/dL (3.5-5.0) L 07/03/17 04:18 Albumin/Globulin Ratio 0.5 (1.1-2.2) L 07/03/17 04:18 Salicylates < 5.0 mg/dL (15-30) L 06/29/17 11:15 Acetaminophen < 1.0 mcg/mL (10-30) L 06/29/17 11:15 - Microbiology Findings Microbiology Findings: Microbiology, Last 48 Hours 06/29/17 15:05 Sputum Culture - Final Sputum Maeve albicans - Clinical Findings Intake & Output: Intake & Output 07/03/17 07/03/17 07/03/17 07:59 15:59 23:59 Intake Total 1437 / 1437 872 / 872 Output Total 1780 / 1780 925 / 925 Balance -343 / -343 -53 / -53 - Attending Attestation I examined this patient and my medical decision-making was reviewed with the Resident Physician. I agree with the documented findings, disposition and treatment plan as described except to the extent set forth below. Patient seen and examined. Labs, radiology, chart personally reviewed. 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 Overall patient has no major issues with the ventilator and no spontaneous breathing trial because patient remain in stable from cardiovascular point of view. Cardiovascular: Patient remained in shock, however started wean off dobutamine and try to only have one vasopressor which is stable.. Patient to stay on amiodarone drip for now because of the what looks like paroxysmal A. fib and cardiology follow-up is appreciated. GI: Nutrition per dietary and GI prophylaxis per routine start nutrition. Heme: DVT prophylaxis per routine. I feel the patient is high risk for bleeding if we continue heparin drip and for that reason to stop at [place] they have DVT prophylaxis. ID: Continue antibiotics and plan to de-escalation Renal; Sintia per Tow Truck Operator. Replace electrolyte. Endorcine: blood glucose is monitored Lines: all lines checked and no evidence of infections Skin: skin care to prevent pressure ulcers per nursing routine care Generally speaking patient shows some evidence of improvement with current treatment, however still critically ill and remained poor prognosis. I spent 32 min of Critical Care time with this patient. It involved decision making of high complexity to assess, manipulate, and support vital organ system failure and/or to prevent further life threatening deterioration of the patient' s condition. The time involved in the performance of separately reportable procedures was not counted toward critical care time.
[2017-07-03] MEDS: Vasopressin 40 UNIT in D5% in Water 100 ML IV SCH (15:39)
[2017-07-03] MEDS: *HR* Heparin 5,000 UNIT/ML VIAL SQ SCH (17:42)
[2017-07-03] MEDS ORDERED: *HR* Heparin 5,000 UNIT/ML VIAL ONE (20:10)
[2017-07-03] MEDS: *HR* Heparin 5,000 UNIT/ML VIAL IV PRN ×2 (22:34→22:35)
[2017-07-04] MEDS ORDERED: *HR* Atropine Sulfate 1 MG/10 ML SYRINGE ONE (00:12)
[2017-07-04] MEDS: *HR* Midazolam HCl 2 MG/2 ML VIAL IVP PRN ×6 (00:32→08:15)
[2017-07-04] MEDS: PrismaSATE BGK 4/2.5 5,000 ML CRRT SCH ×7 (02:28→23:00)
[2017-07-04] MEDS: Lacri-Lube 3.5 GM TUBE BOTH EYES SCH ×6 (03:09→22:57)
[2017-07-04] MEDS: Hydrocortisone Sodium Succ 100 MG/2 ML VIAL IVP SCH ×4 (03:41→20:10)
[2017-07-04 03:53] LABS: Basophils % 0.1 %; Hematocrit 23.5 % (35.3-44.9); Hemoglobin 7.7 g/dL (11.5-15.4); Immature Granulocytes % 0.8 % (0-4); Lymphocytes # 0.6 K/mcL (0.6-4.6); Lymphocytes % 5.9 %; Mean Corpuscular HGB Conc 32.8 g/dL (31.6-35.5); Mean Corpuscular Hemoglobin 27.4 pg (28.0-33.3); Mean Corpuscular Volume 83.6 fL (83.0-100.0); Mean Platelet Volume 10.6 fL (9.4-12.4); Monocytes # 0.4 K/mcL (0.0-1.3); Monocytes % 3.5 %; Neutrophils # 9.5 K/mcL (1.6-8.9); Platelet Count 181 K/mcL (140-400); Red Blood Count 2.81 M/mcL (3.82-4.97); Segmented Neutrophils % 89.7 %
[2017-07-04 03:59] LABS: INR 1.6; Prothrombin Time 17.4 Seconds (9.4-12.1)
[2017-07-04] MEDS: 0.9 % Sodium Chloride 1,000 ML PRIME SCH ×3 (04:06→22:11)
[2017-07-04 04:19] LABS: Alanine Aminotransferase 28 Units/L (0-55); Albumin/Globulin Ratio 0.6 (1.1-2.2); Alkaline Phosphatase 158 Units/L (38-126); Aspartate Amino Transferase 28 Units/L (5-34); BUN/Creatinine Ratio 15 (6-26); Bilirubin,Direct 0.3 mg/dL (0.0-0.5); Bilirubin,Indirect 0.2 mg/dL (0.0-1.2); Bilirubin,Total 0.5 mg/dL (0.2-1.2); Blood Urea Nitrogen 10 mg/dL (7-20); Calcium 7.5 mg/dL (8.6-10.8); Carbon Dioxide 27 mEq/L (19-29); Chloride 103 mEq/L (98-109); Globulin 2.7 g/dL (2.4-3.5); Glucose 122 mg/dL (70-99); Magnesium 1.9 mg/dL (1.6-2.6); Osmolality,Calculated 282 (280-300); Potassium 4.2 mEq/L (3.5-4.5); Total Protein 4.3 g/dL (6.0-8.3); eGFR For African Americans > 60 (> 60); eGFR For Non-African Americans > 60 (> 60)
[2017-07-04 04:29] LABS: Phosphorous 1.6 mg/dL (2.3-4.7); Sodium 136 mEq/L (136-145)
[2017-07-04 04:30] LABS: Albumin 1.6 g/dL (3.5-5.0)
[2017-07-04 04:38] LABS: ABG Base Excess 3 mEq/L (-2 to 3); ABG HCO3 23 mEq/L (21-27); ABG Oxygen Saturation 99 % (95-98); ABG PCO2 26 mmHg (35-45); ABG PH 7.56 pH Units (7.32-7.45); ABG PO2 99 mmHg (85-104); ABG TCO2 24 mEq/L (20-26); Blood Gas Modality ASSIST CONTROL; Blood Gas PEEP 5 cm H2O; Blood Gas Respiration Rate 12; Blood Gas VT 450 cc
[2017-07-04] MEDS: Insulin LISPRO 300 UNITS/3 ML VIAL SQ SCH ×4 (05:09→23:18)
[2017-07-04] MEDS: FentaNYL (PF) 1,000 MCG in 0.9 % Sodium Chloride 80 ML IVC SCH ×3 (05:10→20:25)
[2017-07-04] MEDS: *HR* Heparin 5,000 UNIT/ML VIAL SQ SCH ×2 (06:14→18:14)
[2017-07-04] MEDS: Vasopressin 40 UNIT in D5% in Water 100 ML IV SCH (06:32)
[2017-07-04] MEDS: Piperacillin/Tazobactam 3.375 GM in D5% in Water (Mini-Bag+) 100 ML IVPB SCH ×3 (06:32→22:55)
[2017-07-04] MEDS: Chlorhexidine Rinse 15 ML MOUTHWASH MM SCH ×2 (08:15→20:22)
[2017-07-04] MEDS: Fluconazole 200 MG/100 ML 200 MG/100 ML BAG IVPB SCH (08:15)
[2017-07-04] MEDS: Aspirin 81 MG TAB.CHEW PO SCH (08:15)
[2017-07-04] MEDS: Pantoprazole 40 MG VIAL IVPB SCH (08:15)
--- NOTE | 2017-07-04 08:24 | Nephrology Progress Note ---
Date of Encounter: 07/04/17 Time of Encounter: 08:00 - Assessment and Plan (1) ESRD (end stage renal disease) on dialysis Current Visit: Yes Status: Acute Continue CVVH, no net fluid removal, hemodynamically unstable. Subjective Principal diagnosis: Septic shock Interval history: Intubated, on one pressor. CVVH. Alert, eyes somewhat tracking, daughter at bedside Neph update given. Objective - Vital Signs Vital signs: Vital Signs Temp Pulse Pulse Resp BP Pulse Ox 07/04/17 08:14 39 100 07/04/17 07:01 97.8 F 70 12 106/56 98 07/04/17 06:00 68 12 103/74 98 07/04/17 05:15 12 95/64 98 07/04/17 05:00 69 12 95/64 98 07/04/17 04:00 103 38 107/61 95 07/04/17 03:53 12 71/45 98 07/04/17 03:15 78 07/04/17 03:00 98.2 F 70 12 70/50 98 07/04/17 02:00 76 12 83/60 98 07/04/17 01:32 12 84/57 99 07/04/17 01:00 61 12 102/70 100 07/04/17 00:00 64 12 80/54 100 07/03/17 23:17 12 101/75 100 07/03/17 23:15 59 07/03/17 23:05 97.5 F L 60 12 101/75 100 07/03/17 22:00 76 12 123/80 98 07/03/17 21:43 12 112/79 98 07/03/17 21:00 70 12 126/85 99 07/03/17 20:00 69 12 137/90 99 07/03/17 19:51 12 133/96 99 07/03/17 19:35 73 07/03/17 19:00 98.2 F 73 12 135/87 99 07/03/17 18:35 74 12 146/88 98 07/03/17 18:20 75 12 147/101 98 07/03/17 18:08 74 12 149/105 99 07/03/17 17:50 65 12 151/104 98 07/03/17 17:35 102 12 97/77 98 07/03/17 17:30 85 107 12 132/95 98 07/03/17 17:25 91 91 12 122/75 98 07/03/17 17:20 98.5 F 82 82 12 122/83 98 07/03/17 17:10 12 123/85 97 07/03/17 17:00 101 12 123/85 99 07/03/17 16:35 78 07/03/17 16:33 77 12 127/72 98 07/03/17 15:09 79 12 120/80 99 07/03/17 15:00 12 120/80 99 07/03/17 14:00 80 12 125/71 98 07/03/17 13:00 81 14 113/63 98 07/03/17 12:55 82 07/03/17 12:00 92 13 130/77 99 07/03/17 11:22 98.4 F 95 18 112/62 98 07/03/17 11:03 13 115/60 98 07/03/17 10:00 101 103/55 98 07/03/17 09:55 84 15 105/50 98 07/03/17 09:49 12 113/65 98 07/03/17 09:00 75 109/69 98 Intake and Output 07/03/17 07/04/17 07/04/17 23:59 07:59 15:59 Intake Total 1188 / 1188 1140 / 1140 Output Total 673 / 673 675 / 675 Balance 515 / 515 465 / 465 Intake: IV Fluids 1098 / 1098 905 / 905 PrismaSATE BGK 4/2.5 5,000 ML @ 0 / 0 0 / 0 2000 mls/hr CRRT CONT JENNA Rx#: [id number] Amiodarone Drip Premix 360mg/ 200 / 200 130 / 130 200mL 360 mg In 200 ml @ 0.5 MG /MIN 16.667 mls/hr IVC CONT JENNA Rx#:[id number] PRECEDEX Premix 400 mcg In 100 100 / 100 54 / 54 ml @ 0.2 MCG/KG/HR 6.365 mls/hr IVC .[id number] JENNA Rx#: [id number] FentaNYL (PF) 1,000 MCG In 0.9 120 / 120 109 / 109 % Sodium Chloride 80 ML @ 50 MCG/HR 5 mls/hr IVC CONT JENNA Rx #:[id number] Levophed 8 MG In Dextrose 5% 478 / 478 503 / 503 500 ML @ 10 MCG/MIN 38.1 mls/hr IVC CONT JENNA Rx#:[id number] Diflucan Premix 200 MG/100 ML 100 / 100 200 mg In 100 ml @ 100 mls/hr IVPB DAILY JENNA Rx#:[id number] Zosyn 3.375 GM In Dextrose 5% ( 100 / 100 109 / 109 Minibag+) 100 ML 100 ML @ 25 mls/hr IVPB Q8H JENNA Rx#: [id number] Oral 0 / 0 0 / 0 Tube Feeding 235 / 235 Free Water 0 / 0 0 / 0 Free Water Intake Amount 0 / 0 0 / 0 Output: Sintia 607 / 607 647 / 647 Catheter Other: # Bowel Movements 0 Weight 132 kg Blood Glucose* 140 Patient Weight 07/04/17 23:59 Weight 132 kg - General Appearance General appearance: Present: well-developed, well-nourished, appears started age , obese EENT: Present: mucous membranes moist Neck: Present: no JVD Respiratory: Present: clear Cardiology: Present: edema, regular rate, regular rhythm Additional Comments: obese legs Gastrointestinal: Present: hypoactive bowel sounds, no guarding Integumentary: Present: warm and dry - Lab 07/04/17 03:12 07/04/17 03:12 Most recent lab results ABG pH 7.56 pH Units (7.32-7.45) H 07/04/17 04:34 ABG pCO2 26 mmHg (35-45) L 07/04/17 04:34 ABG pO2 99 mmHg (85-104) 07/04/17 04:34 ABG HCO3 23 mEq/L (21-27) 07/04/17 04:34 ABG O2 Saturation 99 % (95-98) H 07/04/17 04:34 Calcium 7.5 mg/dL (8.6-10.8) L 07/04/17 03:12 Phosphorus 1.6 mg/dL (2.3-4.7) L D 07/04/17 03:12 Magnesium 1.9 mg/dL (1.6-2.6) 07/04/17 03:12 - VTE Documentation of Mechanical Device: Intermittent pneumatic compression device Consult Discharge Plan - Plan Referrals: NONE,PCP [Primary Care Provider] -
--- NOTE | 2017-07-04 09:26 | Pulmonology Progress Note ---
Date of Encounter: 07/04/17 Time of Encounter: 07:00 Assessment and Plan (1) Septic shock Current Visit: No Status: Acute Patient still requiring levophed, however overall need is less with current treatment and to continue broad-spectrum antibiotic. (2) Cardiomyopathy Current Visit: No Status: Chronic Cardiology follow-up. Qualifiers: Cardiomyopathy type: other Qualified Code(s): I42.8 - Other cardiomyopathies (3) Paroxysmal a-fib Current Visit: No Status: Acute Patient is more rate control and discussed with cardiology team regarding amiodarone, perhaps can be either transition to oral or to stop it. (4) Septic shock Current Visit: Yes Status: Acute (5) ESRD (end stage renal disease) on dialysis Current Visit: Yes Status: Chronic Patient is on Sintia (6) Acute respiratory failure requiring reintubation Current Visit: Yes Status: Acute Discussed with the family at the bedside that patient is still hemodynamically not stable for spontaneous breathing trial. Patient with evidence of respiratory alkalosis and I will not make any changes on the ventilator I suspect this is more agitation and also start patient on Versed drip since she did not tolerate Precedex previously. Critical care time 32 minutes. 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 Subjective Principal diagnosis: Septic shock Interval history: Patient with more agitation and overall remain on the ventilator Objective PUL Vital signs: Last Vital Signs Temp 97.7 F 07/04/17 08:21 Pulse 64 07/04/17 09:01 Resp 12 07/04/17 09:01 BP 90/51 07/04/17 09:01 Pulse Ox 94 07/04/17 09:01 General appearance: agitated Eyes: nonicteric Neck: supple Effort: mildly labored Auscultation: bilateral: diminished breath sounds Cardiovascular: irregular rhythm Gastrointestinal: normoactive bowel sounds, non-distended Extremities: edema unable to assess due to mental status anxious Ventilator Settings Ventilator Settings: Ventilator Settings, Last 8 Hours Ventilator Mode VC+ Ventilator Mode VC+ Ventilator Mode VC+ Ventilator Mode VC+ Ventilator Mode VC+ Ventilator Mode VC+ Ventilator Mode VC+ Ventilator Mode VC+ Ventilator Mode VC+ Ventilator Mode VC+ Ventilator Mode VC+ Ventilator Mode VC+ Ventilator Mode VC+ Ventilator Tidal Volume 450 Setting Ventilator Tidal Volume 450 Setting Ventilator Tidal Volume 450 Setting Ventilator Tidal Volume 450 Setting Ventilator Tidal Volume 450 Setting Ventilator Tidal Volume 450 Setting Ventilator Tidal Volume 450 Setting Ventilator Tidal Volume 450 Setting Ventilator Tidal Volume 443 Setting Ventilator Tidal Volume 443 Setting Ventilator Tidal Volume 443 Setting Ventilator Tidal Volume 443 Setting Ventilator Tidal Volume 443 Setting Ventilator Respiratory Rate 12 Setting Ventilator Respiratory Rate 12 Setting Ventilator Respiratory Rate 12 Setting Ventilator Respiratory Rate 12 Setting Ventilator Respiratory Rate 12 Setting Ventilator Respiratory Rate 12 Setting Ventilator Respiratory Rate 12 Setting Ventilator Respiratory Rate 12 Setting Ventilator Respiratory Rate 12 Setting Ventilator Respiratory Rate 12 Setting Ventilator Respiratory Rate 12 Setting Ventilator Respiratory Rate 12 Setting Ventilator Respiratory Rate 12 Setting Actual Respiratory Rate 12 Actual Respiratory Rate 12 Actual Respiratory Rate 33 Actual Respiratory Rate 12 Actual Respiratory Rate 12 Actual Respiratory Rate 12 Actual Respiratory Rate 12 Actual Respiratory Rate 12 Actual Respiratory Rate 12 Actual Respiratory Rate 12 Actual Respiratory Rate 12 Actual Respiratory Rate 12 Positive End Expiratory 5 Pressure Positive End Expiratory 5 Pressure Positive End Expiratory 5 Pressure Positive End Expiratory 5 Pressure Positive End Expiratory 5 Pressure Positive End Expiratory 5 Pressure Positive End Expiratory 5 Pressure Positive End Expiratory 5 Pressure Positive End Expiratory 5 Pressure Positive End Expiratory 5 Pressure Positive End Expiratory 5 Pressure Positive End Expiratory 5 Pressure Positive End Expiratory 5 Pressure Peak Inspiratory Airway 21 Pressure Peak Inspiratory Airway 21 Pressure Peak Inspiratory Airway 34 Pressure Peak Inspiratory Airway 21 Pressure Peak Inspiratory Airway 22 Pressure Peak Inspiratory Airway 22 Pressure Peak Inspiratory Airway 21 Pressure Peak Inspiratory Airway 21 Pressure Peak Inspiratory Airway 21 Pressure Peak Inspiratory Airway 20 Pressure Results - Laboratory Findings CBC and BMP: 07/04/17 03:12 07/04/17 03:12 ABG ABG pH 7.56 pH Units (7.32-7.45) H 07/04/17 04:34 ABG pCO2 26 mmHg (35-45) L 07/04/17 04:34 ABG pO2 99 mmHg (85-104) 07/04/17 04:34 ABG O2 Saturation 99 % (95-98) H 07/04/17 04:34 PT/INR, D-dimer PT 17.4 Seconds (9.4-12.1) H 07/04/17 03:12 Abnormal lab findings: Abnormal lab results RBC 2.81 M/mcL (3.82-4.97) L 07/04/17 03:12 Hgb 7.7 g/dL (11.5-15.4) L 07/04/17 03:12 Hct 23.5 % (35.3-44.9) L 07/04/17 03:12 MCH 27.4 pg (28.0-33.3) L 07/04/17 03:12 RDW 18.0 % (11.5-14.5) H 07/04/17 03:12 Neutrophils # 9.5 K/mcL (1.6-8.9) H 07/04/17 03:12 Hypersegmented Neuts Present (Not Present) A 07/01/17 05:17 Toxic Granulation Present (Not Present) A 07/01/17 05:17 Large Platelets Present (Not Present) A 07/01/17 05:17 PT 17.4 Seconds (9.4-12.1) H 07/04/17 03:12 APTT 51.5 Seconds (26.0-36.0) H 07/02/17 10:07 Heparin Anti-Xa, Unfract 0.05 IU/mL (0.30-0.70) L 07/01/17 19:39 ABG pH 7.56 pH Units (7.32-7.45) H 07/04/17 04:34 ABG pCO2 26 mmHg (35-45) L 07/04/17 04:34 ABG O2 Saturation 99 % (95-98) H 07/04/17 04:34 VBG pH 7.24 pH Units (7.32-7.42) L 07/01/17 01:51 Glucose 122 mg/dL (70-99) H 07/04/17 03:12 POC Glucose 140 (58-89) H 07/03/17 23:28 Lactic Acid 2.8 mmol/L (0.5-2.2) H 07/01/17 05:17 Calcium 7.5 mg/dL (8.6-10.8) L 07/04/17 03:12 Ionized Calcium 1.10 mmol/L (1.15-1.35) L 07/04/17 03:12 Phosphorus 1.6 mg/dL (2.3-4.7) L D 07/04/17 03:12 Alkaline Phosphatase 158 Units/L (38-126) H 07/04/17 03:12 Creatine Kinase 544 Units/L (29-168) H 07/01/17 05:17 Troponin I 1.64 ng/mL (0-0.03) H* 07/02/17 04:25 Serum Total Protein 4.3 g/dL (6.0-8.3) L 07/04/17 03:12 Albumin 1.6 g/dL (3.5-5.0) L 07/04/17 03:12 Albumin/Globulin Ratio 0.6 (1.1-2.2) L 07/04/17 03:12 Salicylates < 5.0 mg/dL (15-30) L 06/29/17 11:15 Acetaminophen < 1.0 mcg/mL (10-30) L 06/29/17 11:15 - Microbiology Findings Microbiology Findings: Microbiology, Last 48 Hours 06/29/17 15:05 Sputum Culture - Final Sputum Maeve albicans - Clinical Findings Intake & Output: Intake & Output 07/03/17 07/04/17 07/04/17 23:59 07:59 15:59 Intake Total 1188 / 1188 1140 / 1140 215 / 215 Output Total 673 / 673 675 / 675 145 / 145 Balance 515 / 515 465 / 465 70 / 70 Weight 132 kg - VTE Documentation of Mechanical Device: Intermittent pneumatic compression device Consult Discharge Plan - Plan Referrals: NONE,PCP [Primary Care Provider] -
[2017-07-04] MEDS ORDERED: 0.9 % Sodium Chloride 500 ML ONE (09:55)
[2017-07-04 11:31] LABS: ABG Base Excess 4 mEq/L (-2 to 3); ABG HCO3 26 mEq/L (21-27); ABG Oxygen Saturation 99 % (95-98); ABG PCO2 30 mmHg (35-45); ABG PH 7.55 pH Units (7.32-7.45); ABG PO2 123 mmHg (85-104); ABG TCO2 27 mEq/L (20-26); Blood Gas Modality VC; Blood Gas PEEP 5 cm H2O; Blood Gas Respiration Rate 12; Blood Gas VT 450 cc
[2017-07-04] MEDS: Phenylephrine 50 MG in D5% in Water 250 ML IVC SCH (20:23)
[2017-07-04] MEDS: Dexmedetomidine HCl 400 MCG/100 ML MLS IVC SCH (20:34)
[2017-07-05] MEDS ORDERED: *HR* Heparin 5,000 UNIT/ML VIAL ONE ×3 (00:18→17:14)
[2017-07-05] MEDS: PrismaSATE BGK 4/2.5 5,000 ML CRRT SCH ×6 (00:30→22:40)
[2017-07-05] MEDS: Vasopressin 40 UNIT in D5% in Water 100 ML IV SCH (00:57)
[2017-07-05] MEDS: *HR* Heparin 5,000 UNIT/ML VIAL IV PRN ×3 (02:00→17:51)
[2017-07-05] MEDS: 0.9 % Sodium Chloride 1,000 ML PRIME SCH ×2 (02:00→18:33)
[2017-07-05] MEDS: FentaNYL (PF) 1,000 MCG in 0.9 % Sodium Chloride 80 ML IVC SCH ×3 (03:00→20:36)
[2017-07-05] MEDS ORDERED: *HR* Alteplase (Cathflo) 2 MG VIAL IVP ONE (03:10)
[2017-07-05] MEDS: Hydrocortisone Sodium Succ 100 MG/2 ML VIAL IVP SCH ×4 (03:20→20:02)
[2017-07-05] MEDS: Lacri-Lube 3.5 GM TUBE BOTH EYES SCH ×6 (03:24→23:06)
[2017-07-05 04:07] LABS: INR 2.7; Prothrombin Time 29.4 Seconds (9.4-12.1)
[2017-07-05 04:10] LABS: Basophils % 0.1 %; Eosinophils % 0.1 %; Hematocrit 22.7 % (35.3-44.9); Hemoglobin 7.4 g/dL (11.5-15.4); Immature Granulocytes % 1.8 % (0-4); Ionized Calcium 1.13 mmol/L (1.15-1.35); Lymphocytes % 7.1 %; Mean Corpuscular HGB Conc 32.6 g/dL (31.6-35.5); Mean Corpuscular Hemoglobin 27.6 pg (28.0-33.3); Mean Corpuscular Volume 84.7 fL (83.0-100.0); Mean Platelet Volume 10.6 fL (9.4-12.4); Monocytes # 0.7 K/mcL (0.0-1.3); Monocytes % 4.8 %; Neutrophils # 12.6 K/mcL (1.6-8.9); Platelet Count 183 K/mcL (140-400); Red Blood Count 2.68 M/mcL (3.82-4.97); Red Cell Distribution Width 18.2 % (11.5-14.5); Segmented Neutrophils % 86.1 %
[2017-07-05] MEDS: Norepinephrine 8 MG in D5% in Water 500 ML IVC SCH (04:10)
[2017-07-05 04:13] LABS: ABG Base Excess 5 mEq/L (-2 to 3); ABG HCO3 29 mEq/L (21-27); ABG Oxygen Saturation 98 % (95-98); ABG PCO2 45 mmHg (35-45); ABG PH 7.42 pH Units (7.32-7.45); ABG PO2 96 mmHg (85-104); ABG TCO2 31 mEq/L (20-26); Blood Gas Modality ASSIST CONTROL; Blood Gas PEEP 5 cm H2O; Blood Gas Respiration Rate 10; Blood Gas VT 420 cc
[2017-07-05 04:21] LABS: Alanine Aminotransferase 25 Units/L (0-55); Albumin/Globulin Ratio 0.6 (1.1-2.2); Alkaline Phosphatase 129 Units/L (38-126); Aspartate Amino Transferase 23 Units/L (5-34); BUN/Creatinine Ratio 19 (6-26); Bilirubin,Direct 0.3 mg/dL (0.0-0.5); Bilirubin,Indirect 0.3 mg/dL (0.0-1.2); Bilirubin,Total 0.6 mg/dL (0.2-1.2); Blood Urea Nitrogen 15 mg/dL (7-20); Calcium 7.7 mg/dL (8.6-10.8); Carbon Dioxide 25 mEq/L (19-29); Chloride 104 mEq/L (98-109); Globulin 2.8 g/dL (2.4-3.5); Glucose 127 mg/dL (70-99); Magnesium 1.8 mg/dL (1.6-2.6); Osmolality,Calculated 286 (280-300); Phosphorous 1.3 mg/dL (2.3-4.7); Potassium 3.2 mEq/L (3.5-4.5); Sodium 137 mEq/L (136-145); Total Protein 4.5 g/dL (6.0-8.3); eGFR For African Americans > 60 (> 60); eGFR For Non-African Americans > 60 (> 60)
[2017-07-05 04:24] LABS: Albumin 1.7 g/dL (3.5-5.0)
[2017-07-05] MEDS: Insulin LISPRO 300 UNITS/3 ML VIAL SQ SCH ×4 (04:26→23:09)
[2017-07-05] MEDS: *HR* Heparin 5,000 UNIT/ML VIAL SQ SCH ×2 (05:15→17:52)
[2017-07-05] MEDS: Dexmedetomidine HCl 400 MCG/100 ML MLS IVC SCH ×3 (06:58→21:08)
--- NOTE | 2017-07-05 08:21 | Nephrology Progress Note ---
Date of Encounter: 07/05/17 Time of Encounter: 08:05 - Assessment and Plan (1) ESRD (end stage renal disease) on dialysis Current Visit: Yes Status: Chronic Continue CVVH, no net fluid removal, hemodynamically unstable. Subjective Principal diagnosis: Septic shock Interval history: Intubated, sedated on one pressor. CVVH. Nursing states easily agitated when sedation lifted. Objective - Vital Signs Vital signs: Vital Signs Temp Pulse Resp BP Pulse Ox 07/05/17 06:38 28 92/78 100 07/05/17 06:00 96 23 94/56 100 07/05/17 05:00 105 39 110/74 100 07/05/17 04:09 12 98/50 99 07/05/17 04:00 80 10 98/50 100 07/05/17 03:20 90 07/05/17 03:00 96 10 91/67 100 07/05/17 02:05 17 97/52 100 07/05/17 02:00 101 30 111/81 100 07/05/17 01:02 78 12 87/48 100 07/05/17 00:21 11 80/61 98 07/05/17 00:00 68 11 80/61 99 07/04/17 23:20 73 07/04/17 23:00 96.7 F L 73 11 88/52 98 07/04/17 22:23 12 77/38 98 07/04/17 22:00 80 11 83/37 95 07/04/17 21:00 99 24 80/65 100 07/04/17 20:26 38 90/63 100 07/04/17 20:00 93 32 90/63 97 07/04/17 19:40 92 07/04/17 19:00 98.9 F 101 35 105/90 95 07/04/17 18:55 99.1 F 102 37 105/90 100 07/04/17 18:08 99.1 F 107 36 112/94 100 07/04/17 17:39 34 100 07/04/17 17:03 98.9 F 107 21 110/91 100 07/04/17 16:15 98.5 F 96 21 110/95 100 07/04/17 15:34 35 100 07/04/17 15:03 97.6 F 92 33 97/60 100 07/04/17 14:15 96.8 F L 66 10 96/61 98 07/04/17 14:05 11 98 07/04/17 13:16 96.8 F L 70 10 98/58 98 07/04/17 12:02 97.2 F L 64 10 79/50 97 07/04/17 11:21 104 07/04/17 11:14 12 98 07/04/17 11:12 97.6 F 59 12 85/54 99 07/04/17 10:18 98.4 F 74 12 97/71 97 07/04/17 09:01 64 12 90/51 94 07/04/17 08:21 97.7 F 63 12 85/56 92 Intake and Output 07/04/17 07/05/17 07/05/17 23:59 07:59 15:59 Intake Total 882 / 882 886 / 886 Output Total 874 / 874 372 / 372 Balance 514 / 514 Intake: IV Fluids 404 / 404 387 / 387 PrismaSATE BGK 4/2.5 5,000 ML @ 0 / 0 0 / 0 2000 mls/hr CRRT CONT [facility] Rx#: [id number] PRECEDEX Premix 400 mcg In 100 23 / 23 77 / 77 ml @ 0.2 MCG/KG/HR 6.365 mls/hr IVC .[id number] [facility]ENNA Rx#: [id number] FentaNYL (PF) 1,000 MCG In 0.9 122 / 122 82 / 82 % Sodium Chloride 80 ML @ 50 MCG/HR 5 mls/hr IVC CONT [facility] Rx #:[id number] Versed 50 MG In 0.9 % Sodium 159 / 159 100 / 100 Chloride 90 ML @ 2 MG/HR 4 mls/ hr IVC CONT [facility] Rx#:[id number] Levophed 8 MG In Dextrose 5% 500 ML @ 10 MCG/MIN 38.1 mls/hr IVC CONT [facility] Rx#:[id number] Zosyn 3.375 GM In Dextrose 5% ( 100 / 100 100 / 100 Minibag+) 100 ML 100 ML @ 25 mls/hr IVPB Q8H [facility] Rx#: [id number] Oral 0 / 0 0 / 0 Tube Feeding 478 / 478 499 / 499 Free Water 0 / 0 0 / 0 Output: Urine 4 / 4 Sintia 859 / 859 343 / 343 Catheter 11 / 11 29 / 29 Other: Weight 132.3 kg Blood Glucose* 143 150 Patient Weight 07/05/17 23:59 Weight 132.3 kg - General Appearance General appearance: Present: well-developed, well-nourished, appears started age , obese EENT: Present: mucous membranes moist Neck: Present: no JVD Respiratory: Present: clear Cardiology: Present: regular rate, regular rhythm Additional Comments: obese legs, mild ankle pitting edema Gastrointestinal: Present: hypoactive bowel sounds Integumentary: Present: warm and dry - Lab 07/05/17 03:50 07/05/17 03:50 Most recent lab results ABG pH 7.42 pH Units (7.32-7.45) 07/05/17 04:08 ABG pCO2 45 mmHg (35-45) 07/05/17 04:08 ABG pO2 96 mmHg (85-104) 07/05/17 04:08 ABG HCO3 29 mEq/L (21-27) H 07/05/17 04:08 ABG O2 Saturation 98 % (95-98) 07/05/17 04:08 Calcium 7.7 mg/dL (8.6-10.8) L 07/05/17 03:50 Phosphorus 1.3 mg/dL (2.3-4.7) L 07/05/17 03:50 Magnesium 1.8 mg/dL (1.6-2.6) 07/05/17 03:50 - VTE Documentation of Mechanical Device: Intermittent pneumatic compression device Consult Discharge Plan - Plan Referrals: NONE,PCP [Primary Care Provider] -
--- NOTE | 2017-07-05 08:28 | Pulmonology Progress Note ---
<LuisEmily M - Last Filed: 07/05/17 09:47> Date of Encounter: 07/05/17 Assessment and Plan (1) Septic shock Current Visit: No Status: Acute (2) Cardiomyopathy Current Visit: No Status: Chronic Qualifiers: Cardiomyopathy type: other Qualified Code(s): I42.8 - Other cardiomyopathies (3) Paroxysmal a-fib Current Visit: No Status: Acute (4) Septic shock Current Visit: Yes Status: Acute (5) ESRD (end stage renal disease) on dialysis Current Visit: Yes Status: Chronic (6) Acute respiratory failure requiring reintubation Current Visit: Yes Status: Acute (7) Stress-induced cardiomyopathy Current Visit: Yes Status: Acute Objective PUL Vital signs: Last Vital Signs Temp 98.9 F 07/05/17 09:18 Pulse 98 07/05/17 09:18 Resp 31 07/05/17 09:18 BP 95/55 07/05/17 09:18 Pulse Ox 100 07/05/17 09:18 Ventilator Settings Ventilator Settings: Ventilator Settings, Last 8 Hours Ventilator Mode VC+ Ventilator Mode VC+ Ventilator Mode VC+ Ventilator Mode VC+ Ventilator Mode VC+ Ventilator Mode VC+ Ventilator Mode VC+ Ventilator Mode VC+ Ventilator Mode VC+ Ventilator Mode VC+ Ventilator Mode VC+ Ventilator Mode VC+ Ventilator Tidal Volume 420 Setting Ventilator Tidal Volume 420 Setting Ventilator Tidal Volume 420 Setting Ventilator Tidal Volume 420 Setting Ventilator Tidal Volume 420 Setting Ventilator Tidal Volume 420 Setting Ventilator Tidal Volume 420 Setting Ventilator Tidal Volume 420 Setting Ventilator Tidal Volume 420 Setting Ventilator Tidal Volume 420 Setting Ventilator Tidal Volume 420 Setting Ventilator Tidal Volume 420 Setting Ventilator Respiratory Rate 10 Setting Ventilator Respiratory Rate 10 Setting Ventilator Respiratory Rate 10 Setting Ventilator Respiratory Rate 10 Setting Ventilator Respiratory Rate 10 Setting Ventilator Respiratory Rate 10 Setting Ventilator Respiratory Rate 10 Setting Ventilator Respiratory Rate 10 Setting Ventilator Respiratory Rate 10 Setting Ventilator Respiratory Rate 10 Setting Ventilator Respiratory Rate 10 Setting Ventilator Respiratory Rate 10 Setting Actual Respiratory Rate 29 Actual Respiratory Rate 29 Actual Respiratory Rate 34 Actual Respiratory Rate 19 Actual Respiratory Rate 23 Actual Respiratory Rate 39 Actual Respiratory Rate 14 Actual Respiratory Rate 10 Actual Respiratory Rate 10 Actual Respiratory Rate 30 Actual Respiratory Rate 30 Positive End Expiratory 5 Pressure Positive End Expiratory 5 Pressure Positive End Expiratory 5 Pressure Positive End Expiratory 5 Pressure Positive End Expiratory 5 Pressure Positive End Expiratory 5 Pressure Positive End Expiratory 5 Pressure Positive End Expiratory 5 Pressure Positive End Expiratory 5 Pressure Positive End Expiratory 5 Pressure Positive End Expiratory 5 Pressure Positive End Expiratory 5 Pressure Peak Inspiratory Airway 28 Pressure Peak Inspiratory Airway 28 Pressure Peak Inspiratory Airway 24 Pressure Peak Inspiratory Airway 29 Pressure Peak Inspiratory Airway 36 Pressure Peak Inspiratory Airway 24 Pressure Peak Inspiratory Airway 11 Pressure Peak Inspiratory Airway 11 Pressure Peak Inspiratory Airway 20 Pressure Peak Inspiratory Airway 28 Pressure Results - Laboratory Findings CBC and BMP: 07/05/17 03:50 07/05/17 03:50 ABG ABG pH 7.42 pH Units (7.32-7.45) 07/05/17 04:08 ABG pCO2 45 mmHg (35-45) 07/05/17 04:08 ABG pO2 96 mmHg (85-104) 07/05/17 04:08 ABG O2 Saturation 98 % (95-98) 07/05/17 04:08 PT/INR, D-dimer PT 29.4 Seconds (9.4-12.1) H D 07/05/17 03:50 Abnormal lab findings: Abnormal lab results WBC 14.6 K/mcL (4.3-11.1) H 07/05/17 03:50 RBC 2.68 M/mcL (3.82-4.97) L 07/05/17 03:50 Hgb 7.4 g/dL (11.5-15.4) L 07/05/17 03:50 Hct 22.7 % (35.3-44.9) L 07/05/17 03:50 MCH 27.6 pg (28.0-33.3) L 07/05/17 03:50 RDW 18.2 % (11.5-14.5) H 07/05/17 03:50 Neutrophils # 12.6 K/mcL (1.6-8.9) H 07/05/17 03:50 Hypersegmented Neuts Present (Not Present) A 07/01/17 05:17 Toxic Granulation Present (Not Present) A 07/01/17 05:17 Large Platelets Present (Not Present) A 07/01/17 05:17 PT 29.4 Seconds (9.4-12.1) H D 07/05/17 03:50 APTT 51.5 Seconds (26.0-36.0) H 07/02/17 10:07 Heparin Anti-Xa, Unfract 0.05 IU/mL (0.30-0.70) L 07/01/17 19:39 ABG HCO3 29 mEq/L (21-27) H 07/05/17 04:08 ABG Total CO2 31 mEq/L (20-26) H 07/05/17 04:08 ABG Base Excess 5 mEq/L (-2 to 3) H 07/05/17 04:08 VBG pH 7.24 pH Units (7.32-7.42) L 07/01/17 01:51 Potassium 3.2 mEq/L (3.5-4.5) L D 07/05/17 03:50 Glucose 127 mg/dL (70-99) H 07/05/17 03:50 POC Glucose 150 (58-89) H 07/04/17 23:17 Lactic Acid 2.8 mmol/L (0.5-2.2) H 07/01/17 05:17 Calcium 7.7 mg/dL (8.6-10.8) L 07/05/17 03:50 Ionized Calcium 1.13 mmol/L (1.15-1.35) L 07/05/17 03:50 Phosphorus 1.3 mg/dL (2.3-4.7) L 07/05/17 03:50 Alkaline Phosphatase 129 Units/L (38-126) H 07/05/17 03:50 Creatine Kinase 544 Units/L (29-168) H 07/01/17 05:17 Troponin I 1.64 ng/mL (0-0.03) H* 07/02/17 04:25 Serum Total Protein 4.5 g/dL (6.0-8.3) L 07/05/17 03:50 Albumin 1.7 g/dL (3.5-5.0) L 07/05/17 03:50 Albumin/Globulin Ratio 0.6 (1.1-2.2) L 07/05/17 03:50 Salicylates < 5.0 mg/dL (15-30) L 06/29/17 11:15 Acetaminophen < 1.0 mcg/mL (10-30) L 06/29/17 11:15 - Clinical Findings Intake & Output: Intake & Output 07/04/17 07/05/17 07/05/17 23:59 07:59 15:59 Intake Total 882 / 882 971 / 971 91 / 91 Output Total 874 / 874 483 / 483 93 / 93 Balance 488 / 488 -2 / -2 Weight 132.3 kg Consult Discharge Plan - Plan Referrals: NONE,PCP [Primary Care Provider] - - Attending Attestation I examined this patient and my medical decision-making was reviewed with the Resident Physician. I agree with the documented findings, disposition and treatment plan as described except to the extent set forth below. Patient seen and examined. Labs, radiology, chart personally reviewed. 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 Pulmonary: Acceptable oxygenation and ventilation. Patient has episode of hypoxia with increasing FiO2 has helped. Patient may need tracheostomy and family needs to be available to discuss that option. Patient overall prognosis is poor. There is no plan for spontaneous breathing trial because she is still unstable. After changing her vent setting subsequent ABG has been more acceptable. Cardiovascular: Patient still requiring Levophed and not tolerating to lower the dose which part of it has to do with sedation. GI: Nutrition per dietary and GI prophylaxis per routine Heme: DVT prophylaxis per routine ID: Continue antibiotics and plan to de-escalation Renal; has been some issue with access to the Nani and overall it is reasonably functioning. Endorcine: blood glucose is monitored Lines: all lines checked and no evidence of infections Skin: skin care to prevent pressure ulcers per nursing routine care Overall prognosis is poor and still need to stay in ICU for her care. I spent 35 min of Critical Care time with this patient. It involved decision making of high complexity to assess, manipulate, and support vital organ system failure and/or to prevent further life threatening deterioration of the patient' s condition. The time involved in the performance of separately reportable procedures was not counted toward critical care time. <Susan Pagan - Last Filed: 07/05/17 12:53> Date of Encounter: 07/05/17 Time of Encounter: 08:28 Assessment and Plan (1) Acute respiratory failure requiring reintubation Current Visit: Yes Status: Acute No plan for spontaneous breathing trial for now ABG results improved this morning following vent changes Patient may require tracheostomy - closely monitoring respiratory status Timed ABGs (2) Septic shock Current Visit: Yes Status: Acute Pt still requiring levophed, appears anxious when sedation is lifted with O2 saturation slightly dropping CXR demonstrated no evidence of acute lung parenchymal or pleural disease. Continue broad-spectrum antibiotics Monitoring patient's hemodynamic status (3) Stress-induced cardiomyopathy Current Visit: Yes Status: Acute Cardiology following (4) ESRD (end stage renal disease) on dialysis Current Visit: Yes Status: Chronic Per RN, patient's permacath had difficulty flushing overnight after alteplase. Nephrology following, appreciate recs Continuing NANI, no net fluid removal. (5) Paroxysmal a-fib Current Visit: No Status: Acute EKG on 07/02/17 shows Afib w/RVR Cardiology following, greatly appreciate recs Will continue heparin for anticoagulation while in critical care Continue oral amiodarone for rhythm control. Continue 400 mg BID for one week. Decrease to 200 mg BID for one week and then 200 mg daily. Subjective Principal diagnosis: Septic shock Interval history: Patient's O2 saturation fluctuating overnight,when awake. Per overnight RN, patient's permacath required alteplase to flush adequately. Objective PUL Vital signs: Last Vital Signs Temp 96.7 F L 07/04/17 23:00 Pulse 96 07/05/17 06:00 Resp 28 07/05/17 06:38 BP 92/78 07/05/17 06:38 Pulse Ox 100 07/05/17 06:38 General appearance: no acute distress Eyes: nonicteric Neck: supple Effort: mildly labored Auscultation: bilateral: diminished breath sounds Cardiovascular: irregular rhythm Gastrointestinal: normoactive bowel sounds, non-distended Extremities: edema unable to assess due to mental status Ventilator Settings Ventilator Settings: Ventilator Settings, Last 8 Hours Ventilator Mode VC+ Ventilator Mode VC+ Ventilator Mode VC+ Ventilator Mode VC+ Ventilator Mode VC+ Ventilator Mode VC+ Ventilator Mode VC+ Ventilator Mode VC+ Ventilator Mode VC+ Ventilator Mode VC+ Ventilator Tidal Volume 420 Setting Ventilator Tidal Volume 420 Setting Ventilator Tidal Volume 420 Setting Ventilator Tidal Volume 420 Setting Ventilator Tidal Volume 420 Setting Ventilator Tidal Volume 420 Setting Ventilator Tidal Volume 420 Setting Ventilator Tidal Volume 420 Setting Ventilator Tidal Volume 420 Setting Ventilator Tidal Volume 420 Setting Ventilator Respiratory Rate 10 Setting Ventilator Respiratory Rate 10 Setting Ventilator Respiratory Rate 10 Setting Ventilator Respiratory Rate 10 Setting Ventilator Respiratory Rate 10 Setting Ventilator Respiratory Rate 10 Setting Ventilator Respiratory Rate 10 Setting Ventilator Respiratory Rate 10 Setting Ventilator Respiratory Rate 10 Setting Ventilator Respiratory Rate 10 Setting Actual Respiratory Rate 19 Actual Respiratory Rate 23 Actual Respiratory Rate 39 Actual Respiratory Rate 14 Actual Respiratory Rate 10 Actual Respiratory Rate 10 Actual Respiratory Rate 30 Actual Respiratory Rate 30 Actual Respiratory Rate 12 Positive End Expiratory 5 Pressure Positive End Expiratory 5 Pressure Positive End Expiratory 5 Pressure Positive End Expiratory 5 Pressure Positive End Expiratory 5 Pressure Positive End Expiratory 5 Pressure Positive End Expiratory 5 Pressure Positive End Expiratory 5 Pressure Positive End Expiratory 5 Pressure Positive End Expiratory 5 Pressure Peak Inspiratory Airway 29 Pressure Peak Inspiratory Airway 36 Pressure Peak Inspiratory Airway 24 Pressure Peak Inspiratory Airway 11 Pressure Peak Inspiratory Airway 11 Pressure Peak Inspiratory Airway 20 Pressure Peak Inspiratory Airway 28 Pressure Peak Inspiratory Airway 12 Pressure Results - Laboratory Findings CBC and BMP: 07/05/17 03:50 07/05/17 03:50 ABG ABG pH 7.42 pH Units (7.32-7.45) 07/05/17 04:08 ABG pCO2 45 mmHg (35-45) 07/05/17 04:08 ABG pO2 96 mmHg (85-104) 07/05/17 04:08 ABG O2 Saturation 98 % (95-98) 07/05/17 04:08 PT/INR, D-dimer PT 29.4 Seconds (9.4-12.1) H D 07/05/17 03:50 Abnormal lab findings: Abnormal lab results WBC 14.6 K/mcL (4.3-11.1) H 07/05/17 03:50 RBC 2.68 M/mcL (3.82-4.97) L 07/05/17 03:50 Hgb 7.4 g/dL (11.5-15.4) L 07/05/17 03:50 Hct 22.7 % (35.3-44.9) L 07/05/17 03:50 MCH 27.6 pg (28.0-33.3) L 07/05/17 03:50 RDW 18.2 % (11.5-14.5) H 07/05/17 03:50 Neutrophils # 12.6 K/mcL (1.6-8.9) H 07/05/17 03:50 Hypersegmented Neuts Present (Not Present) A 07/01/17 05:17 Toxic Granulation Present (Not Present) A 07/01/17 05:17 Large Platelets Present (Not Present) A 07/01/17 05:17 PT 29.4 Seconds (9.4-12.1) H D 07/05/17 03:50 APTT 51.5 Seconds (26.0-36.0) H 07/02/17 10:07 Heparin Anti-Xa, Unfract 0.05 IU/mL (0.30-0.70) L 07/01/17 19:39 ABG HCO3 29 mEq/L (21-27) H 07/05/17 04:08 ABG Total CO2 31 mEq/L (20-26) H 07/05/17 04:08 ABG Base Excess 5 mEq/L (-2 to 3) H 07/05/17 04:08 VBG pH 7.24 pH Units (7.32-7.42) L 07/01/17 01:51 Potassium 3.2 mEq/L (3.5-4.5) L D 07/05/17 03:50 Glucose 127 mg/dL (70-99) H 07/05/17 03:50 POC Glucose 150 (58-89) H 07/04/17 23:17 Lactic Acid 2.8 mmol/L (0.5-2.2) H 07/01/17 05:17 Calcium 7.7 mg/dL (8.6-10.8) L 07/05/17 03:50 Ionized Calcium 1.13 mmol/L (1.15-1.35) L 07/05/17 03:50 Phosphorus 1.3 mg/dL (2.3-4.7) L 07/05/17 03:50 Alkaline Phosphatase 129 Units/L (38-126) H 07/05/17 03:50 Creatine Kinase 544 Units/L (29-168) H 07/01/17 05:17 Troponin I 1.64 ng/mL (0-0.03) H* 07/02/17 04:25 Serum Total Protein 4.5 g/dL (6.0-8.3) L 07/05/17 03:50 Albumin 1.7 g/dL (3.5-5.0) L 07/05/17 03:50 Albumin/Globulin Ratio 0.6 (1.1-2.2) L 07/05/17 03:50 Salicylates < 5.0 mg/dL (15-30) L 06/29/17 11:15 Acetaminophen < 1.0 mcg/mL (10-30) L 06/29/17 11:15 - Clinical Findings Intake & Output: Intake & Output 07/04/17 07/05/17 07/05/17 23:59 07:59 15:59 Intake Total 882 / 882 886 / 886 Output Total 874 / 874 372 / 372 Balance 514 / 514 Weight 132.3 kg - VTE Documentation of Mechanical Device: Intermittent pneumatic compression device
[2017-07-05] MEDS: Piperacillin/Tazobactam 3.375 GM in D5% in Water (Mini-Bag+) 100 ML IVPB SCH ×3 (08:44→23:06)
[2017-07-05] MEDS: Chlorhexidine Rinse 15 ML MOUTHWASH MM SCH ×2 (08:44→20:02)
[2017-07-05] MEDS: Fluconazole 200 MG/100 ML 200 MG/100 ML BAG IVPB SCH (08:45)
[2017-07-05] MEDS: Pantoprazole 40 MG VIAL IVPB SCH (08:45)
[2017-07-05] MEDS: *HR* Amiodarone 200 MG TABLET PO SCH (08:45)
[2017-07-05] MEDS: Aspirin 81 MG TAB.CHEW PO SCH (08:45)
[2017-07-05 10:05] LABS: ABG Base Excess 4 mEq/L (-2 to 3); ABG HCO3 28 mEq/L (21-27); ABG Oxygen Saturation 97 % (95-98); ABG PCO2 40 mmHg (35-45); ABG PH 7.45 pH Units (7.32-7.45); ABG PO2 84 mmHg (85-104); ABG TCO2 29 mEq/L (20-26); Blood Gas Modality VC; Blood Gas Respiration Rate 10; Blood Gas VT 420 cc
--- NOTE | 2017-07-05 10:06 | Cardiology Progress Note ---
Date of Encounter: 07/05/17 Time of Encounter: 08:00 Assessment and Plan (1) Stress-induced cardiomyopathy Current Visit: Yes Status: Acute LHC completed this admission showed angiographically normal coronaries. EF 35%. 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 Currently fluid overload. On ultrafiltration. Remains on ventilator. Hypotensive on pressor support. No bb or aceI due to hypotension. Start in future if able. Fluid removal per nephrology. Agree with palliative care. Discussed cardiomyopathy with daughters and treatment questions answered. Cardiology will sign off. Please call with questions. See recommendations for amiodarone under afib. Once patient is discharged recommend f/u with cardiology in 1-2 weeks. (2) Atrial fibrillation with RVR Current Visit: Yes Status: Acute EKG on 07/02/17 shows Afib w/RVR. Patient has known history of Afib, at home she's on metoprolol xl for rate control, and warfarin for anti-coagulation. On admission, due to atrial fibrillation with rvr and hypotension started on Amiodarone for rhythm control. Currently on heparin for anti-coagulation. Converted to oral amiodarone 07/04/17. Now NSR with PAC. - continue heparin for anticoagulation while in critical care setting on UF as tolerated. Consider restarting coumadin prior to discharge if bleeding risk does not prohibit. - continue oral amiodarone for rhythm control. Continue 400 mg BID for one week. Decrease to 200 mg BID for one week and then 200 mg daily. (3) Elevated troponin Current Visit: Yes Status: Acute Troponin up to 5. LHC showed normal coronary arteries. 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 Type II MN in the setting of multiple medical problems. Continue asa and statin. Discussion w patient/family: The assessment and plan as outlined above was discussed with the patient and/or family members who expressed understanding and agreement. All questions were answered. Thank you for involving us in the care of your patient. Please call with any questions. Subjective Principal diagnosis: Septic shock Interval history: patient remains sedated on ventilator and on ultra-filtration. Objective Vital Signs, Last 4 Hours Temp Pulse Resp BP Pulse Ox 07/05/17 09:18 98.9 F 98 31 95/55 100 07/05/17 08:31 34 99 07/05/17 08:30 98.9 F 99 37 78/50 98 07/05/17 07:48 105 10/29/17 06:38 28 92/78 100 General: Other (sedated and intubated on ventilator) Cardiac: Reg Rate and Rhythm, Normal S1 and S2, No Murmur, Other (SR with PAC on ventilator) Lungs: Normal Breath Sounds, No Wheeze, Rales, Rhonchi, Other (tachypnea noted) Neuro: Other (sedated) Abdomen: Soft, Non-Tender Extremities: Normal Pulses, Other (2+ BLE edema and brownish discoloration bilaterally) Results 07/05/17 03:50 07/05/17 03:50 Lab Results 07/05/17 07/05/17 07/05/17 03:50 03:50 03:50 WBC 14.6 H Hgb 7.4 L Hct 22.7 L Plt Count 183 INR 2.7 D Sodium 137 Potassium 3.2 L D Chloride 104 Carbon Dioxide 25 BUN 15 Creatinine 0.77 Glucose 127 H Calcium 7.7 L Magnesium 1.8 Total Bilirubin 0.6 AST 23 ALT 25 Alkaline Phosphatase 129 H - Imaging and Cardiology Echo: report reviewed Cardiac cath: report reviewed - VTE Documentation of Mechanical Device: Intermittent pneumatic compression device Consult Discharge Plan - Plan Referrals: NONE,PCP [Primary Care Provider] -
[2017-07-05] MEDS: Phenylephrine 50 MG in D5% in Water 250 ML IVC SCH (22:07)
[2017-07-06] MEDS: PrismaSATE BGK 4/2.5 5,000 ML CRRT SCH ×7 (02:03→22:05)
[2017-07-06] MEDS ORDERED: *HR* Heparin 5,000 UNIT/ML VIAL ONE (03:09)
[2017-07-06] MEDS: Vasopressin 40 UNIT in D5% in Water 100 ML IV SCH (03:11)
[2017-07-06] MEDS: Lacri-Lube 3.5 GM TUBE BOTH EYES SCH ×5 (03:11→20:03)
[2017-07-06] MEDS: Hydrocortisone Sodium Succ 100 MG/2 ML VIAL IVP SCH ×3 (03:11→18:32)
[2017-07-06 03:42] LABS: Basophils % 0.1 %; Hemoglobin 6.4 g/dL (11.5-15.4); Immature Granulocytes % 2.5 % (0-4); Lymphocytes # 0.9 K/mcL (0.6-4.6); Lymphocytes % 7.9 %; Mean Corpuscular Hemoglobin 27.7 pg (28.0-33.3); Mean Corpuscular Volume 86.6 fL (83.0-100.0); Mean Platelet Volume 10.4 fL (9.4-12.4); Monocytes # 0.6 K/mcL (0.0-1.3); Monocytes % 5.2 %; Neutrophils # 9.2 K/mcL (1.6-8.9); Platelet Count 166 K/mcL (140-400); Red Blood Count 2.31 M/mcL (3.82-4.97); Red Cell Distribution Width 18.6 % (11.5-14.5); Segmented Neutrophils % 84.3 %
[2017-07-06 03:53] LABS: INR 1.1; Prothrombin Time 11.3 Seconds (9.4-12.1)
[2017-07-06 03:56] LABS: Alanine Aminotransferase 24 Units/L (0-55); Albumin/Globulin Ratio 0.6 (1.1-2.2); Alkaline Phosphatase 120 Units/L (38-126); Aspartate Amino Transferase 20 Units/L (5-34); BUN/Creatinine Ratio 28 (6-26); Bilirubin,Direct 0.3 mg/dL (0.0-0.5); Bilirubin,Indirect 0.3 mg/dL (0.0-1.2); Bilirubin,Total 0.6 mg/dL (0.2-1.2); Blood Urea Nitrogen 20 mg/dL (7-20); Calcium 7.5 mg/dL (8.6-10.8); Carbon Dioxide 27 mEq/L (19-29); Chloride 106 mEq/L (98-109); Globulin 2.6 g/dL (2.4-3.5); Glucose 129 mg/dL (70-99); Magnesium 1.9 mg/dL (1.6-2.6); Osmolality,Calculated 292 (280-300); Phosphorous 1.1 mg/dL (2.3-4.7); Potassium 3.3 mEq/L (3.5-4.5); Sodium 139 mEq/L (136-145); Total Protein 4.2 g/dL (6.0-8.3); eGFR For African Americans > 60 (> 60); eGFR For Non-African Americans > 60 (> 60)
[2017-07-06 03:57] LABS: Albumin 1.6 g/dL (3.5-5.0); Ionized Calcium 1.14 mmol/L (1.15-1.35)
[2017-07-06] MEDS: Dexmedetomidine HCl 400 MCG/100 ML MLS IVC SCH ×3 (04:05→18:00)
[2017-07-06] MEDS ORDERED: 0.9 % Sodium Chloride 500 ML ONE (04:54)
[2017-07-06 05:01] LABS: ABG Base Excess 6 mEq/L (-2 to 3); ABG HCO3 30 mEq/L (21-27); ABG Oxygen Saturation 98 % (95-98); ABG PCO2 41 mmHg (35-45); ABG PH 7.48 pH Units (7.32-7.45); ABG PO2 92 mmHg (85-104); ABG TCO2 31 mEq/L (20-26); Blood Gas Modality ASSIST CONTROL; Blood Gas PEEP 5 cm H2O; Blood Gas Respiration Rate 10; Blood Gas VT 420 cc
[2017-07-06] MEDS: *HR* Heparin 5,000 UNIT/ML VIAL IV PRN ×2 (05:12→15:44)
[2017-07-06] MEDS: 0.9 % Sodium Chloride 1,000 ML PRIME SCH ×3 (05:14→23:05)
[2017-07-06] MEDS: *HR* Heparin 5,000 UNIT/ML VIAL SQ SCH ×2 (05:29→18:32)
[2017-07-06] MEDS: Insulin LISPRO 300 UNITS/3 ML VIAL SQ SCH ×3 (05:29→18:49)
[2017-07-06] MEDS: Piperacillin/Tazobactam 3.375 GM in D5% in Water (Mini-Bag+) 100 ML IVPB SCH ×2 (07:50→15:43)
[2017-07-06] MEDS: FentaNYL (PF) 1,000 MCG in 0.9 % Sodium Chloride 80 ML IVC SCH ×2 (09:00→23:02)
--- NOTE | 2017-07-06 09:13 | Nephrology Progress Note ---
Date of Encounter: 07/06/17 Time of Encounter: 09:00 - Assessment and Plan (1) ESRD (end stage renal disease) on dialysis Current Visit: Yes Status: Chronic Continue CVVH, no net fluid removal, hemodynamically unstable. Subjective Principal diagnosis: Septic shock Interval history: Intubated, sedated on one pressor. CVVH. Nursing states easily agitated when sedation lifted. Objective - Vital Signs Vital signs: Vital Signs Temp Pulse Resp BP Pulse Ox 07/06/17 08:21 33 73/28 100 07/06/17 07:39 97.8 F 07/06/17 07:00 79 13 99/53 100 07/06/17 06:00 80 12 101/45 99 07/06/17 05:45 11 114/60 99 07/06/17 05:00 82 13 85/43 99 07/06/17 04:00 98.8 F 84 13 103/48 99 07/06/17 03:45 79 14 78/46 99 07/06/17 03:00 78 14 91/54 100 07/06/17 02:00 97.4 F L 75 13 101/49 99 07/06/17 01:25 14 107/50 99 07/06/17 01:00 76 14 103/50 99 07/06/17 00:00 72 14 101/44 99 07/05/17 23:24 77 07/05/17 23:20 13 95/47 99 07/05/17 23:00 97.0 F L 75 14 108/46 99 07/05/17 22:00 76 13 102/55 99 07/05/17 21:55 13 100/51 99 07/05/17 21:00 73 14 101/59 99 07/05/17 20:00 96.5 F L 75 12 109/56 99 07/05/17 19:45 12 108/92 99 07/05/17 19:39 70 07/05/17 19:05 96.4 F L 74 13 105/63 99 07/05/17 18:14 96.9 F L 79 12 105/60 99 07/05/17 17:24 13 99 07/05/17 16:12 95.8 F L 70 12 98/54 99 07/05/17 15:20 96.9 F L 68 13 94/43 99 07/05/17 14:44 12 99 07/05/17 14:39 75 12 89/45 99 07/05/17 13:11 97.4 F L 72 13 97/51 99 07/05/17 12:07 97.9 F 82 15 104/65 100 07/05/17 12:05 11 100 07/05/17 11:07 98 F 98 21 100/66 100 07/05/17 10:08 98.4 F 99 24 95/50 98 07/05/17 09:18 98.9 F 98 31 95/55 100 Intake and Output 07/05/17 07/06/17 07/06/17 23:59 07:59 15:59 Intake Total 943.1 / 943.1 925.8 / 925.8 Output Total 919 / 919 586 / 586 Balance 24.1 / 24.1 339.8 / 339.8 Intake: IV Fluids 470.1 / 470.1 372.8 / 372.8 PrismaSATE BGK 4/2.5 5,000 ML @ 0 / 0 0 / 0 2000 mls/hr CRRT CONT JENNA Rx#: [id number] PRECEDEX Premix 400 mcg In 100 129.8 / 129.8 98.6 / 98.6 ml @ 0.2 MCG/KG/HR 6.365 mls/hr IVC .[id number] JENNA Rx#: [id number] FentaNYL (PF) 1,000 MCG In 0.9 87.8 / 87.8 70.4 / 70.4 % Sodium Chloride 80 ML @ 50 MCG/HR 5 mls/hr IVC CONT [facility]ENNA Rx #:[id number] Versed 50 MG In 0.9 % Sodium 53.5 / 53.5 51.9 / 51.9 Chloride 90 ML @ 2 MG/HR 4 mls/ hr IVC CONT [facility]ENNA Rx#:[id number] Levophed 8 MG In Dextrose 5% 109.0 / 109.0 51.9 / 51.9 500 ML @ 10 MCG/MIN 38.1 mls/hr IVC CONT JENNA Rx#:[id number] Zosyn 3.375 GM In Dextrose 5% ( 90 / 90 100.0 / 100.0 Minibag+) 100 ML 100 ML @ 25 mls/hr IVPB Q8H [facility]ENNA Rx#: [id number] 0.9 % Sodium Chloride 1,000 ML 0 / 0 @ 100 mls/hr PRIME .Q10H [facility] Rx #:[id number] Tube Feeding 473 / 473 553 / 553 Output: Urine Sintia 888 / 888 545 / 545 Catheter / Other: Stool Size Copious Stool Consistency loose formed Stool Color Brown Weight 130.2 kg Blood Glucose* 133 Patient Weight 07/06/17 23:59 Weight 130.2 kg - General Appearance General appearance: Present: well-developed, appears started age, sedated on ventilator, intubated EENT: Present: mucous membranes moist Neck: Present: no JVD Respiratory: Present: clear Cardiology: Present: no edema, regular rate, regular rhythm Gastrointestinal: Present: normoactive bowel sounds, no tenderness Integumentary: Present: warm and dry - Lab 07/06/17 03:24 07/06/17 03:24 Most recent lab results ABG pH 7.48 pH Units (7.32-7.45) H 07/06/17 04:57 ABG pCO2 41 mmHg (35-45) 07/06/17 04:57 ABG pO2 92 mmHg (85-104) 07/06/17 04:57 ABG HCO3 30 mEq/L (21-27) H 07/06/17 04:57 ABG O2 Saturation 98 % (95-98) 07/06/17 04:57 Calcium 7.5 mg/dL (8.6-10.8) L 07/06/17 03:24 Phosphorus 1.1 mg/dL (2.3-4.7) L 07/06/17 03:24 Magnesium 1.9 mg/dL (1.6-2.6) 07/06/17 03:24 - VTE Documentation of Mechanical Device: Intermittent pneumatic compression device Consult Discharge Plan - Plan Referrals: NONE,PCP [Primary Care Provider] -
[2017-07-06] MEDS ORDERED: 0.9 % Sodium Chloride 250 ML ONE ×2 (09:53→15:47)
[2017-07-06] MEDS: Fluconazole 200 MG/100 ML 200 MG/100 ML BAG IVPB SCH (10:25)
[2017-07-06] MEDS: Aspirin 81 MG TAB.CHEW PO SCH (10:26)
[2017-07-06] MEDS: Chlorhexidine Rinse 15 ML MOUTHWASH MM SCH ×2 (10:26→20:03)
[2017-07-06] MEDS: Pantoprazole 40 MG VIAL IVPB SCH (10:26)
[2017-07-06] MEDS: *HR* Amiodarone 200 MG TABLET PO SCH (10:27)
--- NOTE | 2017-07-06 11:29 | Pulmonology Progress Note ---
<Daniel Garcia - Last Filed: 07/06/17 13:45> Date of Encounter: 07/06/17 Time of Encounter: 11:26 Assessment and Plan (1) Septic shock Current Visit: Yes Status: Acute Patient remains in septic shock however she does appear to be improving as she is only requiring Levophed for blood pressure support, which we have been able to wean down to 2.5mcg. Urine positive for ESBL Escherichia coli. Levaquin has been discontinued, continue Zosyn. (2) UTI (urinary tract infection) Current Visit: No Status: Acute As above, due to ESBL Escherichia coli continue Zosyn. CT scan did reveal a 2 mm stone that may be contributing. ureteral stent placed last week by urology. Qualifiers: Urinary tract infection type: acute cystitis Hematuria presence: without hematuria Qualified Code(s): N30.00 - Acute cystitis without hematuria (3) ESRD (end stage renal disease) on dialysis Current Visit: Yes Status: Chronic Patient continues to have minimal urine output. Continue renal replacement therapy. Nephrology is following. (4) Atrial fibrillation with RVR Current Visit: Yes Status: Acute Heart rate has stabilized and is under good control. Heart rate does elevate when the patient is moved. Patient has been transitioned to by mouth amiodarone. Cardiology is following. We will hold anticoagulation at this time given the patient's critical illness and high risk for bleeding (5) Stress-induced cardiomyopathy Current Visit: Yes Status: Acute Patient was found to have normal coronary arteries with decreased EF of 35% with apical akinesis and severe hypokinesis of the inferior apical wall on heart cath yesterday. Hemodynamics appear to be improving (6) Left ureteral stone Current Visit: Yes Status: Acute (7) Decubital ulcer Current Visit: Yes Status: Acute Present on arrival. Does not appear infected. Qualifiers: Pressure ulcer location: sacral region Pressure ulcer stage: stage 2 Qualified Code(s): L89.152 - Pressure ulcer of sacral region, stage 2 (8) Diabetes mellitus Current Visit: Yes Status: Acute Blood sugars have been much improved. Continue sliding-scale insulin. Continue to monitor blood sugars. We will institute tube feeds Qualifiers: Diabetes mellitus type: type 2 Diabetes mellitus complication status: without complication Diabetes mellitus mcfp insulin use: unspecified mcfp insulin use status Qualified Code(s): E11.9 - Type 2 diabetes mellitus without complications Subjective Principal diagnosis: Septic shock Interval history: Patient seen and examined at bedside. She remains intubated and sedated. Her requirements for vasopressors decreased and she is only requiring one pressure for support at this time. She does wake up to verbal and painful stimuli. Objective PUL Vital signs: Last Vital Signs Temp 98 F 07/06/17 10:15 Pulse 78 07/06/17 09:59 Resp 14 07/06/17 10:15 BP 88/49 07/06/17 10:15 Pulse Ox 100 07/06/17 10:15 General appearance: no acute distress ENT: oropharynx moist Auscultation: bilateral: diminished breath sounds Cardiovascular: irregular rhythm (Rate controlled) Gastrointestinal: hypoactive bowel sounds, soft, non-tender, non-distended Extremities: no cyanosis, no clubbing, edema (2+) unable to assess due to mental status Ventilator Settings Ventilator Settings: Ventilator Settings, Last 8 Hours Ventilator Mode VC+ Ventilator Mode VC+ Ventilator Mode VC+ Ventilator Mode VC+ Ventilator Mode VC+ Ventilator Mode VC+ Ventilator Mode VC+ Ventilator Mode VC+ Ventilator Mode VC+ Ventilator Tidal Volume 420 Setting Ventilator Tidal Volume 420 Setting Ventilator Tidal Volume 420 Setting Ventilator Tidal Volume 420 Setting Ventilator Tidal Volume 420 Setting Ventilator Tidal Volume 420 Setting Ventilator Tidal Volume 420 Setting Ventilator Tidal Volume 420 Setting Ventilator Tidal Volume 420 Setting Ventilator Respiratory Rate 10 Setting Ventilator Respiratory Rate 10 Setting Ventilator Respiratory Rate 10 Setting Ventilator Respiratory Rate 10 Setting Ventilator Respiratory Rate 10 Setting Ventilator Respiratory Rate 10 Setting Ventilator Respiratory Rate 10 Setting Ventilator Respiratory Rate 10 Setting Ventilator Respiratory Rate 10 Setting Actual Respiratory Rate 33 Actual Respiratory Rate 12 Actual Respiratory Rate 13 Actual Respiratory Rate 11 Actual Respiratory Rate 13 Actual Respiratory Rate 13 Actual Respiratory Rate 14 Positive End Expiratory 5 Pressure Positive End Expiratory 5 Pressure Positive End Expiratory 5 Pressure Positive End Expiratory 5 Pressure Positive End Expiratory 5 Pressure Positive End Expiratory 5 Pressure Positive End Expiratory 5 Pressure Positive End Expiratory 5 Pressure Positive End Expiratory 5 Pressure Peak Inspiratory Airway 31 Pressure Peak Inspiratory Airway 15 Pressure Peak Inspiratory Airway 14 Pressure Peak Inspiratory Airway 18 Pressure Peak Inspiratory Airway 11 Pressure Peak Inspiratory Airway 11 Pressure Peak Inspiratory Airway 12 Pressure Results - Laboratory Findings CBC and BMP: 07/06/17 03:24 07/06/17 03:24 ABG ABG pH 7.48 pH Units (7.32-7.45) H 07/06/17 04:57 ABG pCO2 41 mmHg (35-45) 07/06/17 04:57 ABG pO2 92 mmHg (85-104) 07/06/17 04:57 ABG O2 Saturation 98 % (95-98) 07/06/17 04:57 PT/INR, D-dimer PT 11.3 Seconds (9.4-12.1) D 07/06/17 03:24 Abnormal lab findings: Abnormal lab results RBC 2.31 M/mcL (3.82-4.97) L 07/06/17 03:24 Hgb 6.4 g/dL (11.5-15.4) L 07/06/17 03:24 Hct 20.0 % (35.3-44.9) L 07/06/17 03:24 MCH 27.7 pg (28.0-33.3) L 07/06/17 03:24 RDW 18.6 % (11.5-14.5) H 07/06/17 03:24 Neutrophils # 9.2 K/mcL (1.6-8.9) H 07/06/17 03:24 Hypersegmented Neuts Present (Not Present) A 07/01/17 05:17 Toxic Granulation Present (Not Present) A 07/01/17 05:17 Large Platelets Present (Not Present) A 07/01/17 05:17 APTT 51.5 Seconds (26.0-36.0) H 07/02/17 10:07 Heparin Anti-Xa, Unfract 0.05 IU/mL (0.30-0.70) L 07/01/17 19:39 ABG pH 7.48 pH Units (7.32-7.45) H 07/06/17 04:57 ABG HCO3 30 mEq/L (21-27) H 07/06/17 04:57 ABG Total CO2 31 mEq/L (20-26) H 07/06/17 04:57 ABG Base Excess 6 mEq/L (-2 to 3) H 07/06/17 04:57 VBG pH 7.24 pH Units (7.32-7.42) L 07/01/17 01:51 Potassium 3.3 mEq/L (3.5-4.5) L 07/06/17 03:24 BUN/Creatinine Ratio 28 (6-26) H 07/06/17 03:24 Glucose 129 mg/dL (70-99) H 07/06/17 03:24 POC Glucose 139 (58-89) H 07/05/17 23:08 Lactic Acid 2.8 mmol/L (0.5-2.2) H 07/01/17 05:17 Calcium 7.5 mg/dL (8.6-10.8) L 07/06/17 03:24 Ionized Calcium 1.14 mmol/L (1.15-1.35) L 07/06/17 03:24 Phosphorus 1.1 mg/dL (2.3-4.7) L 07/06/17 03:24 Creatine Kinase 544 Units/L (29-168) H 07/01/17 05:17 Troponin I 1.64 ng/mL (0-0.03) H* 07/02/17 04:25 Serum Total Protein 4.2 g/dL (6.0-8.3) L 07/06/17 03:24 Albumin 1.6 g/dL (3.5-5.0) L 07/06/17 03:24 Albumin/Globulin Ratio 0.6 (1.1-2.2) L 07/06/17 03:24 Salicylates < 5.0 mg/dL (15-30) L 06/29/17 11:15 Acetaminophen < 1.0 mcg/mL (10-30) L 06/29/17 11:15 - Clinical Findings Intake & Output: Intake & Output 07/05/17 07/06/17 07/06/17 23:59 07:59 15:59 Intake Total 943.1 / 943.1 925.8 / 925.8 286.2 / 286.2 Output Total 919 / 919 586 / 586 815 / 815 Balance 24.1 / 24.1 339.8 / 339.8 -528.8 / -528.8 Weight 130.2 kg - VTE Documentation of Mechanical Device: Intermittent pneumatic compression device Consult Discharge Plan - Plan Referrals: NONE,PCP [Primary Care Provider] - <Charles Morgan - Last Filed: 07/06/17 18:08> Date of Encounter: 07/06/17 Objective PUL Vital signs: Last Vital Signs Temp 97.7 F 07/06/17 16:00 Pulse 93 07/06/17 17:00 Resp 20 07/06/17 17:00 BP 108/76 07/06/17 17:00 Pulse Ox 100 07/06/17 17:00 Ventilator Settings Ventilator Settings: Ventilator Settings, Last 8 Hours Ventilator Mode VC+ Ventilator Mode VC+ Ventilator Mode VC+ Ventilator Tidal Volume 350 Setting Ventilator Tidal Volume 350 Setting Ventilator Tidal Volume 350 Setting Ventilator Respiratory Rate 10 Setting Ventilator Respiratory Rate 10 Setting Ventilator Respiratory Rate 10 Setting Actual Respiratory Rate 12 Actual Respiratory Rate 41 Actual Respiratory Rate 39 Positive End Expiratory 5 Pressure Positive End Expiratory 5 Pressure Positive End Expiratory 5 Pressure Peak Inspiratory Airway 12 Pressure Peak Inspiratory Airway 27 Pressure Peak Inspiratory Airway 24 Pressure Results - Laboratory Findings CBC and BMP: 07/06/17 03:24 07/06/17 03:24 ABG ABG pH 7.48 pH Units (7.32-7.45) H 07/06/17 04:57 ABG pCO2 41 mmHg (35-45) 07/06/17 04:57 ABG pO2 92 mmHg (85-104) 07/06/17 04:57 ABG O2 Saturation 98 % (95-98) 07/06/17 04:57 PT/INR, D-dimer PT 11.3 Seconds (9.4-12.1) D 07/06/17 03:24 Abnormal lab findings: Abnormal lab results RBC 2.31 M/mcL (3.82-4.97) L 07/06/17 03:24 Hgb 6.4 g/dL (11.5-15.4) L 07/06/17 03:24 Hct 20.0 % (35.3-44.9) L 07/06/17 03:24 MCH 27.7 pg (28.0-33.3) L 07/06/17 03:24 RDW 18.6 % (11.5-14.5) H 07/06/17 03:24 Neutrophils # 9.2 K/mcL (1.6-8.9) H 07/06/17 03:24 Hypersegmented Neuts Present (Not Present) A 07/01/17 05:17 Toxic Granulation Present (Not Present) A 07/01/17 05:17 Large Platelets Present (Not Present) A 07/01/17 05:17 APTT 51.5 Seconds (26.0-36.0) H 07/02/17 10:07 Heparin Anti-Xa, Unfract 0.05 IU/mL (0.30-0.70) L 07/01/17 19:39 ABG pH 7.48 pH Units (7.32-7.45) H 07/06/17 04:57 ABG HCO3 30 mEq/L (21-27) H 07/06/17 04:57 ABG Total CO2 31 mEq/L (20-26) H 07/06/17 04:57 ABG Base Excess 6 mEq/L (-2 to 3) H 07/06/17 04:57 VBG pH 7.24 pH Units (7.32-7.42) L 07/01/17 01:51 Potassium 3.3 mEq/L (3.5-4.5) L 07/06/17 03:24 BUN/Creatinine Ratio 28 (6-26) H 07/06/17 03:24 Glucose 129 mg/dL (70-99) H 07/06/17 03:24 POC Glucose 129 (58-89) H 07/06/17 12:28 Lactic Acid 2.8 mmol/L (0.5-2.2) H 07/01/17 05:17 Calcium 7.5 mg/dL (8.6-10.8) L 07/06/17 03:24 Ionized Calcium 1.14 mmol/L (1.15-1.35) L 07/06/17 03:24 Phosphorus 1.1 mg/dL (2.3-4.7) L 07/06/17 03:24 Creatine Kinase 544 Units/L (29-168) H 07/01/17 05:17 Troponin I 1.64 ng/mL (0-0.03) H* 07/02/17 04:25 Serum Total Protein 4.2 g/dL (6.0-8.3) L 07/06/17 03:24 Albumin 1.6 g/dL (3.5-5.0) L 07/06/17 03:24 Albumin/Globulin Ratio 0.6 (1.1-2.2) L 07/06/17 03:24 Salicylates < 5.0 mg/dL (15-30) L 06/29/17 11:15 Acetaminophen < 1.0 mcg/mL (10-30) L 06/29/17 11:15 - Clinical Findings Intake & Output: Intake & Output 07/06/17 07/06/17 07/06/17 07:59 15:59 23:59 Intake Total 925.8 / 925.8 01741.5 / 41770.5 514 / 514 Output Total 586 / 586 1535 / 1535 Balance 339.8 / 339.8 9834.5 / 9834.5 499 / 499 Weight 130.2 kg - Attending Attestation I saw the patient with the resident agree with History and Physical exam findings. 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 is intubated and sedated to help to in ventilator assynchrony when we tried wean her she develops worsening hypoxia , Afib with RVR worsens and her blood pressure drops .Very difficult to wean sedation NECK : No JVD appreciated Pulmonary : Patient is hypoxic on ventilator which is more episodic overall the gas exchange stable , adjusted TV and RR Cardiac : On Vasopressor secondary to Septic shock not much of a clear source worsened by stress induced cardiomyopathy Nutrition/GI: Patient is on tube feeds, PPI prophylaxis Renal : Acute on Chronic CVVH , patient dialysis catheter had issues now it is working. Heme onc : Had a drop in Hb to 6.4 will give one unit no active signs of bleeding will recheck Hb ID : Treating as septic shock patient is on broad spectrum antibiotics Musculo skeletal / skin issues : Per Nursing Care Protocol Disposition : Very Criritcal Code status: DNRCCA had discussion with 3 of her Children slowly accepting the overall prognosis , Mom wont be open to the idea of tracheostomy will have to speak with other Children. Family/POA: All her 5 Children there is no designated Power of Break Out Worker. I spent 33 critical care time involving complex decision making to support and prevent further deterioration of vital organ function . Patient Disease status need acute critical care .
[2017-07-06] MEDS: Phenylephrine 50 MG in D5% in Water 250 ML IVC SCH (16:48)
[2017-07-06] MEDS ORDERED: OLANZapine 5 MG TAB.RAPDIS PO SCH (21:00)
[2017-07-07] MEDS: Piperacillin/Tazobactam 3.375 GM in D5% in Water (Mini-Bag+) 100 ML IVPB SCH ×4 (00:09→14:40)
[2017-07-07] MEDS: Insulin LISPRO 300 UNITS/3 ML VIAL SQ SCH ×4 (00:09→17:09)
[2017-07-07] MEDS: Vasopressin 40 UNIT in D5% in Water 100 ML IV SCH (00:10)
[2017-07-07] MEDS: Lacri-Lube 3.5 GM TUBE BOTH EYES SCH ×6 (00:10→20:44)
[2017-07-07] MEDS: PrismaSATE BGK 4/2.5 5,000 ML CRRT SCH ×6 (00:32→15:38)
[2017-07-07] MEDS: Dexmedetomidine HCl 400 MCG/100 ML MLS IVC SCH ×5 (01:12→21:56)
[2017-07-07] MEDS ORDERED: *HR* Heparin 5,000 UNIT/ML VIAL ONE ×2 (01:16→15:43)
[2017-07-07] MEDS ORDERED: 0.9 % Sodium Chloride 500 ML ONE (01:16)
[2017-07-07] MEDS: *HR* Heparin 5,000 UNIT/ML VIAL IV PRN (01:59)
[2017-07-07] MEDS: 0.9 % Sodium Chloride 1,000 ML PRIME SCH ×3 (03:19→16:38)
[2017-07-07 03:59] LABS: Hematocrit 24.2 % (35.3-44.9); Immature Platelets 4.4 % (1.1-6.1); Mean Corpuscular HGB Conc 33.1 g/dL (31.6-35.5); Mean Corpuscular Hemoglobin 28.5 pg (28.0-33.3); Mean Corpuscular Volume 86.1 fL (83.0-100.0); Mean Platelet Volume 9.9 fL (9.4-12.4); Nucleated Red Blood Cells 0.2 /100 WBC (0); Platelet Count 220 K/mcL (140-400); Red Blood Count 2.81 M/mcL (3.82-4.97); Red Cell Distribution Width 17.3 % (11.5-14.5)
[2017-07-07 04:03] LABS: Ionized Calcium 1.11 mmol/L (1.15-1.35)
[2017-07-07 04:13] LABS: INR 1.1; Prothrombin Time 11.3 Seconds (9.4-12.1)
[2017-07-07 04:14] LABS: Alanine Aminotransferase 50 Units/L (0-55); Albumin/Globulin Ratio 0.7 (1.1-2.2); Alkaline Phosphatase 142 Units/L (38-126); Aspartate Amino Transferase 64 Units/L (5-34); BUN/Creatinine Ratio 36 (6-26); Bilirubin,Direct 0.4 mg/dL (0.0-0.5); Bilirubin,Indirect 0.4 mg/dL (0.0-1.2); Bilirubin,Total 0.8 mg/dL (0.2-1.2); Blood Urea Nitrogen 27 mg/dL (7-20); Calcium 7.4 mg/dL (8.6-10.8); Carbon Dioxide 26 mEq/L (19-29); Chloride 107 mEq/L (98-109); Globulin 2.6 g/dL (2.4-3.5); Glucose 132 mg/dL (70-99); Magnesium 1.7 mg/dL (1.6-2.6); Osmolality,Calculated 297 (280-300); Phosphorous 1.1 mg/dL (2.3-4.7); Potassium 3.4 mEq/L (3.5-4.5); Sodium 140 mEq/L (136-145); Total Protein 4.4 g/dL (6.0-8.3); eGFR For African Americans > 60 (> 60); eGFR For Non-African Americans > 60 (> 60)
[2017-07-07 04:17] LABS: Albumin 1.8 g/dL (3.5-5.0)
[2017-07-07 04:18] LABS: ABG Base Excess 3 mEq/L (-2 to 3); ABG HCO3 28 mEq/L (21-27); ABG Oxygen Saturation 98 % (95-98); ABG PCO2 46 mmHg (35-45); ABG PH 7.39 pH Units (7.32-7.45); ABG PO2 110 mmHg (85-104); ABG TCO2 29 mEq/L (20-26); Blood Gas Modality ASSIST CONTROL; Blood Gas PEEP 5 cm H2O; Blood Gas Respiration Rate 10; Blood Gas VT 350 cc
[2017-07-07 04:31] LABS: Anisocytosis 1+ (Not Present); Large Platelets Present (Not Present); Lymphocytes # 1.9 K/mcL (0.6-4.6); Monocytes # 0.2 K/mcL (0.0-1.3); Neutrophils # 9.9 K/mcL (1.6-8.9); Platelet Estimate Normal (Normal)
[2017-07-07] MEDS: Hydrocortisone Sodium Succ 100 MG/2 ML VIAL IVP SCH ×2 (06:03→16:43)
[2017-07-07] MEDS: *HR* Heparin 5,000 UNIT/ML VIAL SQ SCH ×2 (06:03→16:43)
[2017-07-07] MEDS: Phenylephrine 50 MG in D5% in Water 250 ML IVC SCH (06:04)
[2017-07-07] MEDS: Fluconazole 200 MG/100 ML 200 MG/100 ML BAG IVPB SCH (07:13)
[2017-07-07] MEDS: Pantoprazole 40 MG VIAL IVPB SCH (07:13)
[2017-07-07] MEDS: Aspirin 81 MG TAB.CHEW PO SCH (07:13)
[2017-07-07] MEDS: *HR* Amiodarone 200 MG TABLET PO SCH (07:13)
[2017-07-07] MEDS: Chlorhexidine Rinse 15 ML MOUTHWASH MM SCH ×2 (07:28→20:44)
--- NOTE | 2017-07-07 08:06 | Nephrology Progress Note ---
Date of Encounter: 07/07/17 Time of Encounter: 08:04 - Assessment and Plan (1) ESRD (end stage renal disease) on dialysis Current Visit: Yes Status: Chronic The patient will continue on CVVH with the current regimen. The patient will require replacement of phosphorus and potassium. The ICU team will place the orders. (2) Acute respiratory failure requiring reintubation Current Visit: Yes Status: Acute Subjective Principal diagnosis: Septic shock Interval history: The patient remains critically ill. The patient remains sedated on the ventilator. She continues on CVVH. There is no net fluid removal. Blood pressure is 87/53. She requires Tru-Synephrine for blood pressure support. She has several electrolyte abnormalities including hypophosphatemia and hypokalemia. Azotemia is well controlled. Objective - Vital Signs Vital signs: Vital Signs Temp Pulse Resp BP Pulse Ox 07/07/17 07:32 92 07/07/17 07:00 83 28 87/53 100 07/07/17 06:00 89 30 84/48 96 07/07/17 05:36 22 76/36 95 07/07/17 05:00 73 12 111/71 99 07/07/17 04:00 72 16 98/53 100 07/07/17 03:40 78 07/07/17 03:32 15 98/46 100 07/07/17 03:00 98.8 F 70 18 98/46 100 07/07/17 02:00 64 15 92/49 100 07/07/17 01:19 16 99/46 99 07/07/17 01:00 62 16 99/47 100 07/07/17 00:00 65 16 96/47 100 07/06/17 23:25 16 96/45 100 07/06/17 23:15 68 07/06/17 23:00 98.5 F 65 14 99/43 100 07/06/17 22:00 68 17 107/52 100 07/06/17 21:55 16 107/54 100 07/06/17 21:00 71 15 100/49 100 07/06/17 20:21 16 104/49 100 07/06/17 20:00 70 15 107/57 100 07/06/17 19:34 98.4 F 07/06/17 19:30 66 07/06/17 19:00 86 10 109/65 100 07/06/17 18:30 20 123/85 96 07/06/17 18:00 93 20 127/63 98 07/06/17 17:40 35 116/72 95 07/06/17 17:00 93 20 108/76 100 07/06/17 16:06 86 20 101/50 07/06/17 16:00 97.7 F 86 14 101/50 100 07/06/17 15:51 98 F 83 14 88/49 100 07/06/17 15:40 11 94/62 99 07/06/17 15:00 96 14 98/70 100 07/06/17 14:00 90 20 155/93 99 07/06/17 13:10 41 93/68 95 07/06/17 13:00 98.0 F 98 20 93/68 98 07/06/17 12:00 98 F 105 20 111/85 100 07/06/17 11:55 39 126/95 91 07/06/17 11:00 75 12 102/59 100 07/06/17 10:15 98 F 14 88/49 100 07/06/17 10:00 76 12 101/54 100 07/06/17 09:59 97.8 F 78 10 106/76 100 07/06/17 09:55 10 106/76 100 07/06/17 09:00 96 20 99/69 100 07/06/17 08:21 33 73/28 100 Intake and Output 07/06/17 07/07/17 07/07/17 23:59 07:59 15:59 Intake Total 1479.5 / 1479.5 1067.6 / 1067.6 Output Total 454 / 454 992 / 992 Balance 1025.5 / 1025.5 75.6 / 75.6 Intake: IV Fluids 564.5 / 564.5 489.6 / 489.6 PrismaSATE BGK 4/2.5 5,000 ML @ 0 / 0 2000 mls/hr CRRT CONT JENNA Rx#: [id number] PRECEDEX Premix 400 mcg In 100 162.3 / 162.3 80.3 / 80.3 ml @ 0.2 MCG/KG/HR 6.365 mls/hr IVC .[id number] JENNA Rx#: [id number] FentaNYL (PF) 1,000 MCG In 0.9 65.0 / 65.0 82.7 / 82.7 % Sodium Chloride 80 ML @ 50 MCG/HR 5 mls/hr IVC CONT JENNA Rx #:[id number] Versed 50 MG In 0.9 % Sodium 63.3 / 63.3 73.1 / 73.1 Chloride 90 ML @ 2 MG/HR 4 mls/ hr IVC CONT JENNA Rx#:[id number] Levophed 8 MG In Dextrose 5% 51.8 / 51.8 500 ML @ 10 MCG/MIN 38.1 mls/hr IVC CONT JENNA Rx#:[id number] Phenylephrine 50 MG In Dextrose 132.1 / 132.1 153.5 / 153.5 5% 250 ML @ 180 MCG/MIN 55.08 mls/hr IVC CONT JENNA Rx#: [id number] Zosyn 3.375 GM In Dextrose 5% ( 90 / 90 100.0 / 100.0 Minibag+) 100 ML 100 ML @ 25 mls/hr IVPB Q8H JENNA Rx#: [id number] 0.9 % Sodium Chloride 1,000 ML 0 / 0 @ 100 mls/hr PRIME .Q10H JENNA Rx #:[id number] Tube Feeding 566 / 566 578 / 578 Blood Product 349 / 349 Rbcs Leuko Poor As-1 Unit 349 / 349 [id number] Output: Sintia 326 / 326 771 / 771 Rectal Tube 50 / 50 150 / 150 Catheter 78 / 78 71 / 71 Other: Weight 130.7 kg Blood Glucose* 144 - General Appearance Exam: Patient is sedated on the ventilator. She is in no acute distress. She is intubated. She is receiving tube feedings. Lungs coarse breath sounds. Heart regular rate and rhythm. Abdomen is soft. There is no guarding no rigidity. There is some lower extremity swelling. There is a tunnel dialysis catheter in the right chest. - Lab 07/07/17 03:51 07/07/17 03:51 Most recent lab results ABG pH 7.39 pH Units (7.32-7.45) 07/07/17 04:15 ABG pCO2 46 mmHg (35-45) H 07/07/17 04:15 ABG pO2 110 mmHg (85-104) H 07/07/17 04:15 ABG HCO3 28 mEq/L (21-27) H 07/07/17 04:15 ABG O2 Saturation 98 % (95-98) 07/07/17 04:15 Calcium 7.4 mg/dL (8.6-10.8) L 07/07/17 03:51 Phosphorus 1.1 mg/dL (2.3-4.7) L 07/07/17 03:51 Magnesium 1.7 mg/dL (1.6-2.6) 07/07/17 03:51 - VTE Documentation of Mechanical Device: Intermittent pneumatic compression device Consult Discharge Plan - Plan Referrals: NONE,PCP [Primary Care Provider] -
[2017-07-07] MEDS ORDERED: Potassium Phosphate 44 MEQ in 0.9 % Sodium Chloride 250 ML IVPB ONE (08:08)
--- NOTE | 2017-07-07 08:40 | Pulmonology Progress Note ---
<Daniel Garcia - Last Filed: 07/07/17 08:36> Date of Encounter: 07/07/17 Time of Encounter: 08:36 Assessment and Plan (1) Septic shock Current Visit: Yes Status: Acute Patient remains in septic shock however she does appear to be improving as she is only requiring phenylephrine for blood pressure support, which we are continually attempting to wean down. Urine positive for ESBL Escherichia coli. Levaquin has been discontinued, continue Zosyn. (2) UTI (urinary tract infection) Current Visit: No Status: Acute As above, due to ESBL Escherichia coli, sensitive to Zosyn. CT scan did reveal a 2 mm stone that may be contributing. ureteral stent placed last week by urology. Qualifiers: Urinary tract infection type: acute cystitis Hematuria presence: without hematuria Qualified Code(s): N30.00 - Acute cystitis without hematuria (3) ESRD (end stage renal disease) on dialysis Current Visit: Yes Status: Chronic Patient continues to have minimal urine output. Continue renal replacement therapy. Nephrology is following. (4) Atrial fibrillation with RVR Current Visit: Yes Status: Acute Heart rate has stabilized and is under good control. Heart rate does elevate when the patient is moved. Patient has been transitioned to by mouth amiodarone. We will hold anticoagulation at this time given the patient's critical illness and high risk for bleeding (5) Stress-induced cardiomyopathy Current Visit: Yes Status: Acute Patient was found to have normal coronary arteries with decreased EF of 35% with apical akinesis and severe hypokinesis of the inferior apical wall on heart cath yesterday. Hemodynamics appear to be improving (6) Left ureteral stone Current Visit: Yes Status: Acute Ureteral stent placed last week. Unclear if this is contributing to the patient 's infection. (7) Decubital ulcer Current Visit: Yes Status: Acute Present on arrival. Qualifiers: Pressure ulcer location: sacral region Pressure ulcer stage: stage 2 Qualified Code(s): L89.152 - Pressure ulcer of sacral region, stage 2 (8) Diabetes mellitus Current Visit: Yes Status: Acute Blood sugars have been much improved. Continue sliding-scale insulin. Continue to monitor blood sugars. 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 I discussed the patient's critical condition and her poor prognosis for recovery. This is day 9 of intubation and I discussed the possibility of needing a tracheostomy for this patient. Family is unsure that she would want this. They are going to discuss this with their 2 other siblings and reconvene tomorrow to discuss treatment plan of care. There is concern that there may be some disagreement on the plan of care among the patient's children, as the patient does not have a designated power of bankruptcy attorney. We will consult palliative care to assist with the family discussions. Subjective Principal diagnosis: Septic shock Interval history: Patient seen and examined at bedside. She remains intubated and sedated. Her requirements for vasopressors decreased and she is only requiring one pressure for support at this time. Objective PUL Vital signs: Last Vital Signs Temp 98.6 F 07/07/17 08:00 Pulse 80 07/07/17 08:00 Resp 28 07/07/17 07:00 BP 98/57 07/07/17 08:00 Pulse Ox 100 07/07/17 07:00 General appearance: comatose ENT: oropharynx dry Auscultation: bilateral: diminished breath sounds Cardiovascular: irregular rhythm Gastrointestinal: hypoactive bowel sounds, soft, non-tender, non-distended Extremities: no cyanosis, no clubbing, edema (3+) unable to assess due to mental status Ventilator Settings Ventilator Settings: Ventilator Settings, Last 8 Hours Ventilator Mode VC+ Ventilator Mode VC+ Ventilator Mode VC+ Ventilator Mode VC+ Ventilator Mode VC+ Ventilator Mode VC+ Ventilator Mode VC+ Ventilator Mode VC+ Ventilator Mode VC+ Ventilator Mode VC+ Ventilator Mode VC+ Ventilator Mode VC+ Ventilator Tidal Volume 350 Setting Ventilator Tidal Volume 350 Setting Ventilator Tidal Volume 350 Setting Ventilator Tidal Volume 350 Setting Ventilator Tidal Volume 350 Setting Ventilator Tidal Volume 350 Setting Ventilator Tidal Volume 350 Setting Ventilator Tidal Volume 350 Setting Ventilator Tidal Volume 350 Setting Ventilator Tidal Volume 350 Setting Ventilator Tidal Volume 350 Setting Ventilator Tidal Volume 350 Setting Ventilator Respiratory Rate 10 Setting Ventilator Respiratory Rate 10 Setting Ventilator Respiratory Rate 10 Setting Ventilator Respiratory Rate 10 Setting Ventilator Respiratory Rate 10 Setting Ventilator Respiratory Rate 10 Setting Ventilator Respiratory Rate 10 Setting Ventilator Respiratory Rate 10 Setting Ventilator Respiratory Rate 10 Setting Ventilator Respiratory Rate 10 Setting Ventilator Respiratory Rate 10 Setting Ventilator Respiratory Rate 10 Setting Actual Respiratory Rate 20 Actual Respiratory Rate 28 Actual Respiratory Rate 12 Actual Respiratory Rate 12 Actual Respiratory Rate 12 Actual Respiratory Rate 14 Actual Respiratory Rate 15 Actual Respiratory Rate 16 Actual Respiratory Rate 16 Actual Respiratory Rate 16 Actual Respiratory Rate 16 Positive End Expiratory 5 Pressure Positive End Expiratory 7 Pressure Positive End Expiratory 7 Pressure Positive End Expiratory 7 Pressure Positive End Expiratory 5 Pressure Positive End Expiratory 5 Pressure Positive End Expiratory 5 Pressure Positive End Expiratory 5 Pressure Positive End Expiratory 5 Pressure Positive End Expiratory 5 Pressure Positive End Expiratory 5 Pressure Positive End Expiratory 5 Pressure Peak Inspiratory Airway 18 Pressure Peak Inspiratory Airway 19 Pressure Peak Inspiratory Airway 19 Pressure Peak Inspiratory Airway 11 Pressure Peak Inspiratory Airway 10 Pressure Peak Inspiratory Airway 10 Pressure Peak Inspiratory Airway 10 Pressure Peak Inspiratory Airway 13 Pressure Peak Inspiratory Airway 10 Pressure Peak Inspiratory Airway 10 Pressure Peak Inspiratory Airway 10 Pressure Results - Laboratory Findings CBC and BMP: 07/07/17 03:51 07/07/17 03:51 ABG ABG pH 7.39 pH Units (7.32-7.45) 07/07/17 04:15 ABG pCO2 46 mmHg (35-45) H 07/07/17 04:15 ABG pO2 110 mmHg (85-104) H 07/07/17 04:15 ABG O2 Saturation 98 % (95-98) 07/07/17 04:15 PT/INR, D-dimer PT 11.3 Seconds (9.4-12.1) 07/07/17 03:51 Abnormal lab findings: Abnormal lab results WBC 12.1 K/mcL (4.3-11.1) H 07/07/17 03:51 RBC 2.81 M/mcL (3.82-4.97) L 07/07/17 03:51 Hgb 8.0 g/dL (11.5-15.4) L D 07/07/17 03:51 Hct 24.2 % (35.3-44.9) L 07/07/17 03:51 RDW 17.3 % (11.5-14.5) H 07/07/17 03:51 Neutrophils # 9.9 K/mcL (1.6-8.9) H 07/07/17 03:51 Nucleated RBCs/100 WBC 0.2 /100 WBC (0) H 07/07/17 03:51 Hypersegmented Neuts Present (Not Present) A 07/01/17 05:17 Toxic Granulation Present (Not Present) A 07/01/17 05:17 Large Platelets Present (Not Present) A 07/07/17 03:51 Anisocytosis 1+ (Not Present) A 07/07/17 03:51 APTT 51.5 Seconds (26.0-36.0) H 07/02/17 10:07 Heparin Anti-Xa, Unfract 0.05 IU/mL (0.30-0.70) L 07/01/17 19:39 ABG pCO2 46 mmHg (35-45) H 07/07/17 04:15 ABG pO2 110 mmHg (85-104) H 07/07/17 04:15 ABG HCO3 28 mEq/L (21-27) H 07/07/17 04:15 ABG Total CO2 29 mEq/L (20-26) H 07/07/17 04:15 VBG pH 7.24 pH Units (7.32-7.42) L 07/01/17 01:51 Potassium 3.4 mEq/L (3.5-4.5) L 07/07/17 03:51 BUN 27 mg/dL (7-20) H 07/07/17 03:51 BUN/Creatinine Ratio 36 (6-26) H 07/07/17 03:51 Glucose 132 mg/dL (70-99) H 07/07/17 03:51 POC Glucose 144 (58-89) H 07/06/17 23:07 Lactic Acid 2.8 mmol/L (0.5-2.2) H 07/01/17 05:17 Calcium 7.4 mg/dL (8.6-10.8) L 07/07/17 03:51 Ionized Calcium 1.11 mmol/L (1.15-1.35) L 07/07/17 03:51 Phosphorus 1.1 mg/dL (2.3-4.7) L 07/07/17 03:51 AST 64 Units/L (5-34) H 07/07/17 03:51 Alkaline Phosphatase 142 Units/L (38-126) H 07/07/17 03:51 Creatine Kinase 544 Units/L (29-168) H 07/01/17 05:17 Troponin I 1.64 ng/mL (0-0.03) H* 07/02/17 04:25 Serum Total Protein 4.4 g/dL (6.0-8.3) L 07/07/17 03:51 Albumin 1.8 g/dL (3.5-5.0) L 07/07/17 03:51 Albumin/Globulin Ratio 0.7 (1.1-2.2) L 07/07/17 03:51 Salicylates < 5.0 mg/dL (15-30) L 06/29/17 11:15 Acetaminophen < 1.0 mcg/mL (10-30) L 06/29/17 11:15 - Clinical Findings Intake & Output: Intake & Output 07/06/17 07/07/17 07/07/17 23:59 07:59 15:59 Intake Total 1479.5 / 1479.5 1067.6 / 1067.6 160 / 160 Output Total 454 / 454 992 / 992 142 / 142 Balance 1025.5 / 1025.5 75.6 / 75.6 Weight 130.7 kg - VTE Documentation of Mechanical Device: Intermittent pneumatic compression device Consult Discharge Plan - Plan Referrals: NONE,PCP [Primary Care Provider] - <Charles Morgan - Last Filed: 07/07/17 23:13> Date of Encounter: 07/07/17 Objective PUL Vital signs: Last Vital Signs Temp 98.4 F 07/07/17 20:00 Pulse 65 07/07/17 22:56 Resp 18 07/07/17 22:56 BP 105/60 07/07/17 22:56 Pulse Ox 100 07/07/17 22:56 Ventilator Settings Ventilator Settings: Ventilator Settings, Last 8 Hours Ventilator Mode VC+ Ventilator Mode VC+ Ventilator Mode VC+ Ventilator Mode VC+ Ventilator Mode VC+ Ventilator Mode VC+ Ventilator Mode VC+ Ventilator Mode VC+ Ventilator Tidal Volume 350 Setting Ventilator Tidal Volume 350 Setting Ventilator Tidal Volume 350 Setting Ventilator Tidal Volume 350 Setting Ventilator Tidal Volume 350 Setting Ventilator Tidal Volume 350 Setting Ventilator Tidal Volume 350 Setting Ventilator Tidal Volume 350 Setting Ventilator Tidal Volume 350 Setting Ventilator Respiratory Rate 10 Setting Ventilator Respiratory Rate 10 Setting Ventilator Respiratory Rate 10 Setting Ventilator Respiratory Rate 10 Setting Ventilator Respiratory Rate 10 Setting Ventilator Respiratory Rate 10 Setting Ventilator Respiratory Rate 10 Setting Ventilator Respiratory Rate 10 Setting Ventilator Respiratory Rate 10 Setting Actual Respiratory Rate 18 Actual Respiratory Rate 19 Actual Respiratory Rate 17 Actual Respiratory Rate 17 Actual Respiratory Rate 18 Actual Respiratory Rate 18 Actual Respiratory Rate 18 Actual Respiratory Rate 17 Actual Respiratory Rate 18 Positive End Expiratory 5 Pressure Positive End Expiratory 5 Pressure Positive End Expiratory 5 Pressure Positive End Expiratory 5 Pressure Positive End Expiratory 5 Pressure Positive End Expiratory 5 Pressure Positive End Expiratory 5 Pressure Positive End Expiratory 5 Pressure Positive End Expiratory 5 Pressure Peak Inspiratory Airway 10 Pressure Peak Inspiratory Airway 13 Pressure Peak Inspiratory Airway 10 Pressure Peak Inspiratory Airway 10 Pressure Peak Inspiratory Airway 10 Pressure Peak Inspiratory Airway 10 Pressure Peak Inspiratory Airway 10 Pressure Peak Inspiratory Airway 13 Pressure Peak Inspiratory Airway 10 Pressure Results - Laboratory Findings CBC and BMP: 07/07/17 03:51 07/07/17 03:51 ABG ABG pH 7.39 pH Units (7.32-7.45) 07/07/17 04:15 ABG pCO2 46 mmHg (35-45) H 07/07/17 04:15 ABG pO2 110 mmHg (85-104) H 07/07/17 04:15 ABG O2 Saturation 98 % (95-98) 07/07/17 04:15 PT/INR, D-dimer PT 11.3 Seconds (9.4-12.1) 07/07/17 03:51 Abnormal lab findings: Abnormal lab results WBC 12.1 K/mcL (4.3-11.1) H 07/07/17 03:51 RBC 2.81 M/mcL (3.82-4.97) L 07/07/17 03:51 Hgb 8.0 g/dL (11.5-15.4) L D 07/07/17 03:51 Hct 24.2 % (35.3-44.9) L 07/07/17 03:51 RDW 17.3 % (11.5-14.5) H 07/07/17 03:51 Neutrophils # 9.9 K/mcL (1.6-8.9) H 07/07/17 03:51 Nucleated RBCs/100 WBC 0.2 /100 WBC (0) H 07/07/17 03:51 Hypersegmented Neuts Present (Not Present) A 07/01/17 05:17 Toxic Granulation Present (Not Present) A 07/01/17 05:17 Large Platelets Present (Not Present) A 07/07/17 03:51 Anisocytosis 1+ (Not Present) A 07/07/17 03:51 APTT 51.5 Seconds (26.0-36.0) H 07/02/17 10:07 Heparin Anti-Xa, Unfract 0.05 IU/mL (0.30-0.70) L 07/01/17 19:39 ABG pCO2 46 mmHg (35-45) H 07/07/17 04:15 ABG pO2 110 mmHg (85-104) H 07/07/17 04:15 ABG HCO3 28 mEq/L (21-27) H 07/07/17 04:15 ABG Total CO2 29 mEq/L (20-26) H 07/07/17 04:15 VBG pH 7.24 pH Units (7.32-7.42) L 07/01/17 01:51 Potassium 3.4 mEq/L (3.5-4.5) L 07/07/17 03:51 BUN 27 mg/dL (7-20) H 07/07/17 03:51 BUN/Creatinine Ratio 36 (6-26) H 07/07/17 03:51 Glucose 132 mg/dL (70-99) H 07/07/17 03:51 POC Glucose 114 (58-89) H 07/07/17 17:07 Lactic Acid 2.8 mmol/L (0.5-2.2) H 07/01/17 05:17 Calcium 7.4 mg/dL (8.6-10.8) L 07/07/17 03:51 Ionized Calcium 1.11 mmol/L (1.15-1.35) L 07/07/17 03:51 Phosphorus 1.1 mg/dL (2.3-4.7) L 07/07/17 03:51 AST 64 Units/L (5-34) H 07/07/17 03:51 Alkaline Phosphatase 142 Units/L (38-126) H 07/07/17 03:51 Creatine Kinase 544 Units/L (29-168) H 07/01/17 05:17 Troponin I 1.64 ng/mL (0-0.03) H* 07/02/17 04:25 Serum Total Protein 4.4 g/dL (6.0-8.3) L 07/07/17 03:51 Albumin 1.8 g/dL (3.5-5.0) L 07/07/17 03:51 Albumin/Globulin Ratio 0.7 (1.1-2.2) L 07/07/17 03:51 Salicylates < 5.0 mg/dL (15-30) L 06/29/17 11:15 Acetaminophen < 1.0 mcg/mL (10-30) L 06/29/17 11:15 - Clinical Findings Intake & Output: Intake & Output 07/07/17 07/07/17 07/07/17 07:59 15:59 23:59 Intake Total 1067.6 / 1067.6 1268.1 / 1268.1 952.7 / 952.7 Output Total 992 / 992 1386 / 1386 932 / 932 Balance 75.6 / 75.6 -117.9 / -117.9 20.7 / 20.7 - Attending Attestation I saw the patient with the resident agree with History and Physical exam findings. 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 Started on Seroquel so we can come down on the versed NECK : No JVD appreciated Pulmonary : To continue current settings as the gas exchange was stable .If she comes off the vasopressor will do SBT. Cardiac : On Vasopressor secondary to Septic shock not much of a clear source worsened by stress induced cardiomyopathy will try to wean vasopressor minimal dose of phenylephrine Nutrition/GI: Patient is on tube feeds, PPI prophylaxis Renal : Acute on Chronic CVVH , patient dialysis catheter had issues now it is working. Heme onc : ID : Treating as septic shock patient is on broad spectrum antibiotics Musculo skeletal / skin issues : Per Nursing Care Protocol Disposition : Very Criritcal Code status: DNRCCA had discussion with 3 of her Children slowly accepting the overall prognosis , family doesnt want any pressure test operator ventilation as mother doest prefer prolonged aggressive measures leaning towards comfort measures possible tomorrow . Family/POA: All her 5 Children there is no designated Power of Restaurant Host.
[2017-07-07] MEDS: FentaNYL (PF) 1,000 MCG in 0.9 % Sodium Chloride 80 ML IVC SCH ×2 (08:51→21:09)
--- NOTE | 2017-07-07 11:21 | Palliative - Consult Note ---
Date of Encounter: 07/07/17 Time of Encounter: 09:50 - Assessment and Plan (1) Generalized pain Current Visit: Yes Status: Acute Assessment and plan: Receiving Fentanyl per ICU protocol. MOnitor (2) Anxiety Current Visit: Yes Status: Acute Assessment and plan: Versed has been d/c'd. Precedex currently infusing at 0.7/hr per ICU protocol. Monitor (3) Goals of care, counseling/discussion Current Visit: Yes Status: Acute Assessment and plan: Patient has 5 children, no healthcare POA. ICU staff has been working keeping family updated on her clinical course and letting them know decisions that need made going forward. She has not been able to wean off the vent. I spoke with daughter Trinidad, who states that after meeting with Dr. Garcia yesterday, 4 children in agreement with no tracheostomy, however, states her 1 brother Mk, has not been "on the same page". She states he has not came in to see pt, and they have given him information regarding her room number, etc. She states that the other children have appointed Chente to make decisions for the pt, and that he plans on coming in to "sign papers". I attempted to call Chente to confirm, but unable to reach - left message. I did offer to Trinidad that I would call Mk and update him on pt situation and see what questions/ concerns he has. She stated she would be over on her break and would leave his number in room. Will f/u this afternoon. Discussed at ICU rounds. (4) Acute respiratory failure requiring reintubation Current Visit: Yes Status: Acute (5) Atrial fibrillation with RVR Current Visit: Yes Status: Acute Assessment and plan: Cardiology was following and afib now stable. They have signed off (6) ESRD (end stage renal disease) on dialysis Current Visit: Yes Status: Chronic Assessment and plan: Followed by Dr. Mcqueen. (7) Septic shock Current Visit: Yes Status: Acute Assessment and plan: Remains on IV antibiotics. Palliative-CN HPI - Data of Consult Consult date: 07/07/17 Requesting Physician: Emily Smith MD Primary Care Provider: PCP NONE - Consult Narrative History of present illness: Ms. Wei is a 72 year old female with a past medical history of arthrits, COPD , GERD, HTN, osteoporosis, CHF, who presented from [facility] with septic shock. She was intubated and has been cared for in the intensive care unit. She is assisted dialysis pt of Dr. Dilip Almeidas. ESBL infection was identified and treated with Zosyn. CT scan did reveal a 2 mm stone that was possibly contributing and ureteral stent placed last week by urology. She has improved from infection standpoint, currently on some pressor support, but has been unable to wean off of the ventilator. She becomes tachypneic and restless when sedation is decreased. She also had issues with atrial fibrillation earlier in admission. Cardiac cath was completed - No active disease however EF 35%. Her rate is now regulated and cardiology has signed off. CC: Emily Smith MD Past Med Surg Social Fam HX - Past Medical History Medical history: arthritis, COPD, GERD, hypertension, osteoporosis Psychiatric history: ADHD, depression - Past Surgical History Surgical History: other - Social History Smoking Status: Never smoker Smokeless Tobacco Status: No Alcohol use: none Drug use: none - Family History Mother History Unknown: Yes Living Status: Hx Family Cardiac Disorders: Yes Hx Family Endocrine Disorder: Yes (Diabetes) Medications and Allergies Alendronate Sodium [Fosamax] 70 mg PO QWEEK 02/13/16 [History] Calcium Carb/Vitamin D3/Vit K1 [Calcium + D Soft Chewable Tab] 1 mg PO DAILY 04/22 [History] Amitriptyline [Elavil] 25 mg PO DAILY 04/28/17 [History] DULoxetine [Cymbalta] 30 mg PO BID 04/28/17 [History] HYDROcodone/Acet 7.5/325 mg [Barnard 7.5-325 mg] 1 tab PO Q6H 04/28/17 [History] Trazodone HCl 100 mg PO BID 04/28/17 [History] Metoprolol XL (24 HR) Succ [Toprol Xl] 12.5 mg PO BID #60 05/12/17 [Rx] Bisacodyl [Dulcolax] 10 mg RC DAILY PRN 06/29/17 [History] Dicyclomine [Bentyl] 10 mg PO QID 06/29/17 [History] Docusate Sodium [Dok] 100 mg PO BID 06/29/17 [History] Gabapentin [Neurontin] 100 mg PO BID 06/29/17 [History] Linaclotide [Linzess] 145 mcg PO DAILY 06/29/17 [History] Lubiprostone [Amitiza] 24 mcg PO BID 06/29/17 [History] Mirtazapine [Remeron] 15 mg PO HS 06/29/17 [History] Ondansetron HCl [Zofran] 4 mg PO Q6H PRN 06/29/17 [History] Oxybutynin [Ditropan] 5 mg PO DAILY 06/29/17 [History] Ranitidine HCl [Zantac 75] 75 mg PO BID 06/29/17 [History] Renal Vitamin [Renal Caps Softgel] 1 mg PO DAILY 06/29/17 [History] Sertraline [Zoloft] 50 mg PO DAILY 06/29/17 [History] Warfarin [Coumadin] 1.5 mg PO Q48H 06/29/17 [History] Warfarin [Coumadin] 2 mg PO Q48H 06/29/17 [History] 3 Allergy/AdvReac Type Severity Reaction Status Date / Time ibuprofen [From Motrin] AdvReac Nausea Verified 02/13/16 10:46 ROS unobtainable: due to endotracheal tube Palliative Care-Exam - Constitutional Vitals: Temp Pulse Resp BP Pulse Ox 98.6 F 80 33 102/73 95 07/07/17 08:00 07/07/17 11:00 07/07/17 11:00 07/07/17 11:00 07/07/17 11:00 General appearance: Present: morbidly obese - Head Head Exam: Present: normal inspection, normocephalic - Eye Pupils: Present: PERRL - Respiratory Respiratory exam: Present: CTAB Additional comments: Breath sounds course throughout. Vent with 30% FIO2 PEEP 5 - Cardiovascular Cardiovascular exam: Present: +S1, +S2 - GI/Abdominal Exam GI/Abdominal exam: Present: diminished bowel sounds, soft additional comments: Rectal tube with brown liquid stool - Catheter Type: Urethral (Haji) - Extremities Exam Additional comments: 3-4+ edema bilateral upper and lower extremities - Neurological Exam Additional comments: Sedated on ventilator - Skin Skin exam: Present: dry, warm Additional comments: Bruising noted to upper and lower extremities Internal Medicine - CN: Reslt - Labs CBC & Chem 7: 07/07/17 03:51 07/07/17 03:51 Labs: Short CBC 07/02/17 07/03/17 07/03/17 Range/Units 18:37 00:37 04:18 WBC (4.3-11.1) K/mcL RBC 3.08 L (3.82-4.97) M/mcL Hgb (11.5-15.4) g/dL Hct (35.3-44.9) % MCV 80.5 L (83.0-100.0) fL MCH 26.9 L (28.0-33.3) pg MCHC 33.5 (31.6-35.5) g/dL RDW 17.7 H (11.5-14.5) % Plt Count (140-400) K/mcL MPV 10.6 (9.4-12.4) fL Immature Gran % 1.1 (0-4) % Seg Neutrophils % 93.3 % Band Neutrophils % (0-4) % Lymphocytes % 2.7 % Monocytes % 2.7 % Eosinophils % 0.1 % Basophils % 0.1 % Neutrophils # (1.6-8.9) K/mcL Lymphocytes # 0.5 L (0.6-4.6) K/mcL Monocytes # 0.5 (0.0-1.3) K/mcL Eosinophils # 0.0 (0.0-0.6) K/mcL Basophils # 0.0 (0.0-0.2) K/mcL Nucleated RBCs/100 WBC (0) /100 WBC Platelet Estimate (Normal) Large Platelets (Not Present) Immature Plt Fraction (1.1-6.1) % Anisocytosis (Not Present) PT (9.4-12.1) Seconds INR Sample Site ABG pH (7.32-7.45) pH Units ABG pCO2 (35-45) mmHg ABG pO2 (85-104) mmHg ABG HCO3 (21-27) mEq/L ABG Total CO2 (20-26) mEq/L ABG O2 Saturation (95-98) % ABG Base Excess (-2 to 3) mEq/L Roverto Test Respiration Rate O2 Delivery Device Blood Gas Modality Inspired O2 (1-15=lpm zn50-238=%) Tidal Volume cc PEEP cm H2O Sodium (136-145) mEq/L Potassium (3.5-4.5) mEq/L Chloride (98-109) mEq/L Carbon Dioxide (19-29) mEq/L BUN (7-20) mg/dL Creatinine (0.57-1.11) mg/dL Est GFR ( Amer) (> 60) Est GFR (Non-Af Amer) (> 60) BUN/Creatinine Ratio (6-26) Glucose (70-99) mg/dL POC Glucose 154 H 129 H (58-89) Calculated Osmolality (280-300) Calcium (8.6-10.8) mg/dL Ionized Calcium (1.15-1.35) mmol/L Phosphorus (2.3-4.7) mg/dL Magnesium (1.6-2.6) mg/dL Total Bilirubin (0.2-1.2) mg/dL Direct Bilirubin (0.0-0.5) mg/dL Indirect Bilirubin (0.0-1.2) mg/dL AST (5-34) Units/L ALT (0-55) Units/L Alkaline Phosphatase (38-126) Units/L Serum Total Protein (6.0-8.3) g/dL Albumin (3.5-5.0) g/dL Globulin (2.4-3.5) g/dL Albumin/Globulin Ratio (1.1-2.2) 07/03/17 07/03/17 07/03/17 Range/Units 04:18 04:18 04:57 WBC (4.3-11.1) K/mcL RBC (3.82-4.97) M/mcL Hgb (11.5-15.4) g/dL Hct (35.3-44.9) % MCV (83.0-100.0) fL MCH (28.0-33.3) pg MCHC (31.6-35.5) g/dL RDW (11.5-14.5) % Plt Count (140-400) K/mcL MPV (9.4-12.4) fL Immature Gran % (0-4) % Seg Neutrophils % % Band Neutrophils % (0-4) % Lymphocytes % % Monocytes % % Eosinophils % % Basophils % % Neutrophils # (1.6-8.9) K/mcL Lymphocytes # (0.6-4.6) K/mcL Monocytes # (0.0-1.3) K/mcL Eosinophils # (0.0-0.6) K/mcL Basophils # (0.0-0.2) K/mcL Nucleated RBCs/100 WBC (0) /100 WBC Platelet Estimate (Normal) Large Platelets (Not Present) Immature Plt Fraction (1.1-6.1) % Anisocytosis (Not Present) PT 20.9 H (9.4-12.1) Seconds INR 1.9 Sample Site Art Line ABG pH 7.42 (7.32-7.45) pH Units ABG pCO2 39 (35-45) mmHg ABG pO2 91 (85-104) mmHg ABG HCO3 26 (21-27) mEq/L ABG Total CO2 27 H (20-26) mEq/L ABG O2 Saturation 97 (95-98) % ABG Base Excess 1 (-2 to 3) mEq/L Roverto Test N/A Respiration Rate 12 O2 Delivery Device Adult Vent Blood Gas Modality ASSIST CONTROL Inspired O2 30.0 (1-15=lpm do20-981=%) Tidal Volume 450 cc PEEP 5 cm H2O Sodium 129 L (136-145) mEq/L Potassium 3.5 (3.5-4.5) mEq/L Chloride 98 (98-109) mEq/L Carbon Dioxide 23 (19-29) mEq/L BUN 10 (7-20) mg/dL Creatinine 0.74 (0.57-1.11) mg/dL Est GFR ( Amer) > 60 (> 60) Est GFR (Non-Af Amer) > 60 (> 60) BUN/Creatinine Ratio 14 (6-26) Glucose 146 H (70-99) mg/dL POC Glucose (58-89) Calculated Osmolality 270 L (280-300) Calcium 7.2 L (8.6-10.8) mg/dL Ionized Calcium 1.02 L (1.15-1.35) mmol/L Phosphorus 1.0 L* (2.3-4.7) mg/dL Magnesium 1.8 (1.6-2.6) mg/dL Total Bilirubin 0.5 (0.2-1.2) mg/dL Direct Bilirubin 0.3 (0.0-0.5) mg/dL Indirect Bilirubin 0.2 (0.0-1.2) mg/dL AST 38 H (5-34) Units/L ALT 30 (0-55) Units/L Alkaline Phosphatase 183 H (38-126) Units/L Serum Total Protein 4.6 L (6.0-8.3) g/dL Albumin 1.6 L (3.5-5.0) g/dL Globulin 3.0 (2.4-3.5) g/dL Albumin/Globulin Ratio 0.5 L (1.1-2.2) 07/03/17 07/03/17 07/03/17 Range/Units 06:25 11:21 18:29 WBC (4.3-11.1) K/mcL RBC (3.82-4.97) M/mcL Hgb (11.5-15.4) g/dL Hct (35.3-44.9) % MCV (83.0-100.0) fL MCH (28.0-33.3) pg MCHC (31.6-35.5) g/dL RDW (11.5-14.5) % Plt Count (140-400) K/mcL MPV (9.4-12.4) fL Immature Gran % (0-4) % Seg Neutrophils % % Band Neutrophils % (0-4) % Lymphocytes % % Monocytes % % Eosinophils % % Basophils % % Neutrophils # (1.6-8.9) K/mcL Lymphocytes # (0.6-4.6) K/mcL Monocytes # (0.0-1.3) K/mcL Eosinophils # (0.0-0.6) K/mcL Basophils # (0.0-0.2) K/mcL Nucleated RBCs/100 WBC (0) /100 WBC Platelet Estimate (Normal) Large Platelets (Not Present) Immature Plt Fraction (1.1-6.1) % Anisocytosis (Not Present) PT (9.4-12.1) Seconds INR Sample Site ABG pH (7.32-7.45) pH Units ABG pCO2 (35-45) mmHg ABG pO2 (85-104) mmHg ABG HCO3 (21-27) mEq/L ABG Total CO2 (20-26) mEq/L ABG O2 Saturation (95-98) % ABG Base Excess (-2 to 3) mEq/L Roverto Test Respiration Rate O2 Delivery Device Blood Gas Modality Inspired O2 (1-15=lpm yt96-678=%) Tidal Volume cc PEEP cm H2O Sodium (136-145) mEq/L Potassium (3.5-4.5) mEq/L Chloride (98-109) mEq/L Carbon Dioxide (19-29) mEq/L BUN (7-20) mg/dL Creatinine (0.57-1.11) mg/dL Est GFR ( Amer) (> 60) Est GFR (Non-Af Amer) (> 60) BUN/Creatinine Ratio (6-26) Glucose (70-99) mg/dL POC Glucose 123 H 120 H 127 H (58-89) Calculated Osmolality (280-300) Calcium (8.6-10.8) mg/dL Ionized Calcium (1.15-1.35) mmol/L Phosphorus (2.3-4.7) mg/dL Magnesium (1.6-2.6) mg/dL Total Bilirubin (0.2-1.2) mg/dL Direct Bilirubin (0.0-0.5) mg/dL Indirect Bilirubin (0.0-1.2) mg/dL AST (5-34) Units/L ALT (0-55) Units/L Alkaline Phosphatase (38-126) Units/L Serum Total Protein (6.0-8.3) g/dL Albumin (3.5-5.0) g/dL Globulin (2.4-3.5) g/dL Albumin/Globulin Ratio (1.1-2.2) 07/03/17 07/04/17 07/04/17 Range/Units 23:28 03:12 03:12 WBC (4.3-11.1) K/mcL RBC 2.81 L (3.82-4.97) M/mcL Hgb (11.5-15.4) g/dL Hct (35.3-44.9) % MCV 83.6 (83.0-100.0) fL MCH 27.4 L (28.0-33.3) pg MCHC 32.8 (31.6-35.5) g/dL RDW 18.0 H (11.5-14.5) % Plt Count (140-400) K/mcL MPV 10.6 (9.4-12.4) fL Immature Gran % 0.8 (0-4) % Seg Neutrophils % 89.7 % Band Neutrophils % (0-4) % Lymphocytes % 5.9 % Monocytes % 3.5 % Eosinophils % 0.0 % Basophils % 0.1 % Neutrophils # (1.6-8.9) K/mcL Lymphocytes # 0.6 (0.6-4.6) K/mcL Monocytes # 0.4 (0.0-1.3) K/mcL Eosinophils # 0.0 (0.0-0.6) K/mcL Basophils # 0.0 (0.0-0.2) K/mcL Nucleated RBCs/100 WBC (0) /100 WBC Platelet Estimate (Normal) Large Platelets (Not Present) Immature Plt Fraction (1.1-6.1) % Anisocytosis (Not Present) PT 17.4 H (9.4-12.1) Seconds INR 1.6 Sample Site ABG pH (7.32-7.45) pH Units ABG pCO2 (35-45) mmHg ABG pO2 (85-104) mmHg ABG HCO3 (21-27) mEq/L ABG Total CO2 (20-26) mEq/L ABG O2 Saturation (95-98) % ABG Base Excess (-2 to 3) mEq/L Roverto Test Respiration Rate O2 Delivery Device Blood Gas Modality Inspired O2 (1-15=lpm jq28-258=%) Tidal Volume cc PEEP cm H2O Sodium (136-145) mEq/L Potassium (3.5-4.5) mEq/L Chloride (98-109) mEq/L Carbon Dioxide (19-29) mEq/L BUN (7-20) mg/dL Creatinine (0.57-1.11) mg/dL Est GFR ( Amer) (> 60) Est GFR (Non-Af Amer) (> 60) BUN/Creatinine Ratio (6-26) Glucose (70-99) mg/dL POC Glucose 140 H (58-89) Calculated Osmolality (280-300) Calcium (8.6-10.8) mg/dL Ionized Calcium (1.15-1.35) mmol/L Phosphorus (2.3-4.7) mg/dL Magnesium (1.6-2.6) mg/dL Total Bilirubin (0.2-1.2) mg/dL Direct Bilirubin (0.0-0.5) mg/dL Indirect Bilirubin (0.0-1.2) mg/dL AST (5-34) Units/L ALT (0-55) Units/L Alkaline Phosphatase (38-126) Units/L Serum Total Protein (6.0-8.3) g/dL Albumin (3.5-5.0) g/dL Globulin (2.4-3.5) g/dL Albumin/Globulin Ratio (1.1-2.2) 07/04/17 07/04/17 07/04/17 Range/Units 03:12 04:34 11:11 WBC (4.3-11.1) K/mcL RBC (3.82-4.97) M/mcL Hgb (11.5-15.4) g/dL Hct (35.3-44.9) % MCV (83.0-100.0) fL MCH (28.0-33.3) pg MCHC (31.6-35.5) g/dL RDW (11.5-14.5) % Plt Count (140-400) K/mcL MPV (9.4-12.4) fL Immature Gran % (0-4) % Seg Neutrophils % % Band Neutrophils % (0-4) % Lymphocytes % % Monocytes % % Eosinophils % % Basophils % % Neutrophils # (1.6-8.9) K/mcL Lymphocytes # (0.6-4.6) K/mcL Monocytes # (0.0-1.3) K/mcL Eosinophils # (0.0-0.6) K/mcL Basophils # (0.0-0.2) K/mcL Nucleated RBCs/100 WBC (0) /100 WBC Platelet Estimate (Normal) Large Platelets (Not Present) Immature Plt Fraction (1.1-6.1) % Anisocytosis (Not Present) PT (9.4-12.1) Seconds INR Sample Site R Radial ABG pH 7.56 H (7.32-7.45) pH Units ABG pCO2 26 L (35-45) mmHg ABG pO2 99 (85-104) mmHg ABG HCO3 23 (21-27) mEq/L ABG Total CO2 24 (20-26) mEq/L ABG O2 Saturation 99 H (95-98) % ABG Base Excess 3 (-2 to 3) mEq/L Roverto Test N/A Respiration Rate 12 O2 Delivery Device Adult Vent Blood Gas Modality ASSIST CONTROL Inspired O2 30.0 (1-15=lpm tv59-799=%) Tidal Volume 450 cc PEEP 5 cm H2O Sodium 136 D (136-145) mEq/L Potassium 4.2 (3.5-4.5) mEq/L Chloride 103 (98-109) mEq/L Carbon Dioxide 27 (19-29) mEq/L BUN 10 (7-20) mg/dL Creatinine 0.68 (0.57-1.11) mg/dL Est GFR ( Amer) > 60 (> 60) Est GFR (Non-Af Amer) > 60 (> 60) BUN/Creatinine Ratio 15 (6-26) Glucose 122 H (70-99) mg/dL POC Glucose 142 H (58-89) Calculated Osmolality 282 (280-300) Calcium 7.5 L (8.6-10.8) mg/dL Ionized Calcium 1.10 L (1.15-1.35) mmol/L Phosphorus 1.6 L D (2.3-4.7) mg/dL Magnesium 1.9 (1.6-2.6) mg/dL Total Bilirubin 0.5 (0.2-1.2) mg/dL Direct Bilirubin 0.3 (0.0-0.5) mg/dL Indirect Bilirubin 0.2 (0.0-1.2) mg/dL AST 28 (5-34) Units/L ALT 28 (0-55) Units/L Alkaline Phosphatase 158 H (38-126) Units/L Serum Total Protein 4.3 L (6.0-8.3) g/dL Albumin 1.6 L (3.5-5.0) g/dL Globulin 2.7 (2.4-3.5) g/dL Albumin/Globulin Ratio 0.6 L (1.1-2.2) 07/04/17 07/04/17 07/04/17 Range/Units 11:26 18:17 23:17 WBC (4.3-11.1) K/mcL RBC (3.82-4.97) M/mcL Hgb (11.5-15.4) g/dL Hct (35.3-44.9) % MCV (83.0-100.0) fL MCH (28.0-33.3) pg MCHC (31.6-35.5) g/dL RDW (11.5-14.5) % Plt Count (140-400) K/mcL MPV (9.4-12.4) fL Immature Gran % (0-4) % Seg Neutrophils % % Band Neutrophils % (0-4) % Lymphocytes % % Monocytes % % Eosinophils % % Basophils % % Neutrophils # (1.6-8.9) K/mcL Lymphocytes # (0.6-4.6) K/mcL Monocytes # (0.0-1.3) K/mcL Eosinophils # (0.0-0.6) K/mcL Basophils # (0.0-0.2) K/mcL Nucleated RBCs/100 WBC (0) /100 WBC Platelet Estimate (Normal) Large Platelets (Not Present) Immature Plt Fraction (1.1-6.1) % Anisocytosis (Not Present) PT (9.4-12.1) Seconds INR Sample Site ABG pH 7.55 H (7.32-7.45) pH Units ABG pCO2 30 L (35-45) mmHg ABG pO2 123 H (85-104) mmHg ABG HCO3 26 (21-27) mEq/L ABG Total CO2 27 H (20-26) mEq/L ABG O2 Saturation 99 H (95-98) % ABG Base Excess 4 H (-2 to 3) mEq/L Roverto Test Respiration Rate 12 O2 Delivery Device ET Tube Blood Gas Modality VC Inspired O2 30.0 (1-15=lpm hl53-742=%) Tidal Volume 450 cc PEEP 5 cm H2O Sodium (136-145) mEq/L Potassium (3.5-4.5) mEq/L Chloride (98-109) mEq/L Carbon Dioxide (19-29) mEq/L BUN (7-20) mg/dL Creatinine (0.57-1.11) mg/dL Est GFR ( Amer) (> 60) Est GFR (Non-Af Amer) (> 60) BUN/Creatinine Ratio (6-26) Glucose (70-99) mg/dL POC Glucose 143 H 150 H (58-89) Calculated Osmolality (280-300) Calcium (8.6-10.8) mg/dL Ionized Calcium (1.15-1.35) mmol/L Phosphorus (2.3-4.7) mg/dL Magnesium (1.6-2.6) mg/dL Total Bilirubin (0.2-1.2) mg/dL Direct Bilirubin (0.0-0.5) mg/dL Indirect Bilirubin (0.0-1.2) mg/dL AST (5-34) Units/L ALT (0-55) Units/L Alkaline Phosphatase (38-126) Units/L Serum Total Protein (6.0-8.3) g/dL Albumin (3.5-5.0) g/dL Globulin (2.4-3.5) g/dL Albumin/Globulin Ratio (1.1-2.2) 07/05/17 07/05/17 07/05/17 Range/Units 03:50 03:50 03:50 WBC (4.3-11.1) K/mcL RBC 2.68 L (3.82-4.97) M/mcL Hgb (11.5-15.4) g/dL Hct (35.3-44.9) % MCV 84.7 (83.0-100.0) fL MCH 27.6 L (28.0-33.3) pg MCHC 32.6 (31.6-35.5) g/dL RDW 18.2 H (11.5-14.5) % Plt Count (140-400) K/mcL MPV 10.6 (9.4-12.4) fL Immature Gran % 1.8 (0-4) % Seg Neutrophils % 86.1 % Band Neutrophils % (0-4) % Lymphocytes % 7.1 % Monocytes % 4.8 % Eosinophils % 0.1 % Basophils % 0.1 % Neutrophils # (1.6-8.9) K/mcL Lymphocytes # 1.0 (0.6-4.6) K/mcL Monocytes # 0.7 (0.0-1.3) K/mcL Eosinophils # 0.0 (0.0-0.6) K/mcL Basophils # 0.0 (0.0-0.2) K/mcL Nucleated RBCs/100 WBC (0) /100 WBC Platelet Estimate (Normal) Large Platelets (Not Present) Immature Plt Fraction (1.1-6.1) % Anisocytosis (Not Present) PT 29.4 H D (9.4-12.1) Seconds INR 2.7 D Sample Site ABG pH (7.32-7.45) pH Units ABG pCO2 (35-45) mmHg ABG pO2 (85-104) mmHg ABG HCO3 (21-27) mEq/L ABG Total CO2 (20-26) mEq/L ABG O2 Saturation (95-98) % ABG Base Excess (-2 to 3) mEq/L Roverto Test Respiration Rate O2 Delivery Device Blood Gas Modality Inspired O2 (1-15=lpm di44-780=%) Tidal Volume cc PEEP cm H2O Sodium 137 (136-145) mEq/L Potassium 3.2 L D (3.5-4.5) mEq/L Chloride 104 (98-109) mEq/L Carbon Dioxide 25 (19-29) mEq/L BUN 15 (7-20) mg/dL Creatinine 0.77 (0.57-1.11) mg/dL Est GFR ( Amer) > 60 (> 60) Est GFR (Non-Af Amer) > 60 (> 60) BUN/Creatinine Ratio 19 (6-26) Glucose 127 H (70-99) mg/dL POC Glucose (58-89) Calculated Osmolality 286 (280-300) Calcium 7.7 L (8.6-10.8) mg/dL Ionized Calcium 1.13 L (1.15-1.35) mmol/L Phosphorus 1.3 L (2.3-4.7) mg/dL Magnesium 1.8 (1.6-2.6) mg/dL Total Bilirubin 0.6 (0.2-1.2) mg/dL Direct Bilirubin 0.3 (0.0-0.5) mg/dL Indirect Bilirubin 0.3 (0.0-1.2) mg/dL AST 23 (5-34) Units/L ALT 25 (0-55) Units/L Alkaline Phosphatase 129 H (38-126) Units/L Serum Total Protein 4.5 L (6.0-8.3) g/dL Albumin 1.7 L (3.5-5.0) g/dL Globulin 2.8 (2.4-3.5) g/dL Albumin/Globulin Ratio 0.6 L (1.1-2.2) 07/05/17 07/05/17 07/05/17 Range/Units 04:08 09:59 10:59 WBC (4.3-11.1) K/mcL RBC (3.82-4.97) M/mcL Hgb (11.5-15.4) g/dL Hct (35.3-44.9) % MCV (83.0-100.0) fL MCH (28.0-33.3) pg MCHC (31.6-35.5) g/dL RDW (11.5-14.5) % Plt Count (140-400) K/mcL MPV (9.4-12.4) fL Immature Gran % (0-4) % Seg Neutrophils % % Band Neutrophils % (0-4) % Lymphocytes % % Monocytes % % Eosinophils % % Basophils % % Neutrophils # (1.6-8.9) K/mcL Lymphocytes # (0.6-4.6) K/mcL Monocytes # (0.0-1.3) K/mcL Eosinophils # (0.0-0.6) K/mcL Basophils # (0.0-0.2) K/mcL Nucleated RBCs/100 WBC (0) /100 WBC Platelet Estimate (Normal) Large Platelets (Not Present) Immature Plt Fraction (1.1-6.1) % Anisocytosis (Not Present) PT (9.4-12.1) Seconds INR Sample Site R Radial ABG pH 7.42 7.45 (7.32-7.45) pH Units ABG pCO2 45 40 (35-45) mmHg ABG pO2 96 84 L (85-104) mmHg ABG HCO3 29 H 28 H (21-27) mEq/L ABG Total CO2 31 H 29 H (20-26) mEq/L ABG O2 Saturation 98 97 (95-98) % ABG Base Excess 5 H 4 H (-2 to 3) mEq/L Roverto Test Positive Respiration Rate 10 10 O2 Delivery Device Adult Vent Blood Gas Modality ASSIST CONTROL VC Inspired O2 30.0 30.0 (1-15=lpm [id number]=%) Tidal Volume 420 420 cc PEEP 5 cm H2O Sodium (136-145) mEq/L Potassium (3.5-4.5) mEq/L Chloride (98-109) mEq/L Carbon Dioxide (19-29) mEq/L BUN (7-20) mg/dL Creatinine (0.57-1.11) mg/dL Est GFR ( Amer) (> 60) Est GFR (Non-Af Amer) (> 60) BUN/Creatinine Ratio (6-26) Glucose (70-99) mg/dL POC Glucose 151 H (58-89) Calculated Osmolality (280-300) Calcium (8.6-10.8) mg/dL Ionized Calcium (1.15-1.35) mmol/L Phosphorus (2.3-4.7) mg/dL Magnesium (1.6-2.6) mg/dL Total Bilirubin (0.2-1.2) mg/dL Direct Bilirubin (0.0-0.5) mg/dL Indirect Bilirubin (0.0-1.2) mg/dL AST (5-34) Units/L ALT (0-55) Units/L Alkaline Phosphatase (38-126) Units/L Serum Total Protein (6.0-8.3) g/dL Albumin (3.5-5.0) g/dL Globulin (2.4-3.5) g/dL Albumin/Globulin Ratio (1.1-2.2) 07/05/17 07/05/17 07/06/17 Range/Units 18:30 23:08 03:24 WBC (4.3-11.1) K/mcL RBC 2.31 L (3.82-4.97) M/mcL Hgb (11.5-15.4) g/dL Hct (35.3-44.9) % MCV 86.6 (83.0-100.0) fL MCH 27.7 L (28.0-33.3) pg MCHC 32.0 (31.6-35.5) g/dL RDW 18.6 H (11.5-14.5) % Plt Count (140-400) K/mcL MPV 10.4 (9.4-12.4) fL Immature Gran % 2.5 (0-4) % Seg Neutrophils % 84.3 % Band Neutrophils % (0-4) % Lymphocytes % 7.9 % Monocytes % 5.2 % Eosinophils % 0.0 % Basophils % 0.1 % Neutrophils # (1.6-8.9) K/mcL Lymphocytes # 0.9 (0.6-4.6) K/mcL Monocytes # 0.6 (0.0-1.3) K/mcL Eosinophils # 0.0 (0.0-0.6) K/mcL Basophils # 0.0 (0.0-0.2) K/mcL Nucleated RBCs/100 WBC (0) /100 WBC Platelet Estimate (Normal) Large Platelets (Not Present) Immature Plt Fraction (1.1-6.1) % Anisocytosis (Not Present) PT (9.4-12.1) Seconds INR Sample Site ABG pH (7.32-7.45) pH Units ABG pCO2 (35-45) mmHg ABG pO2 (85-104) mmHg ABG HCO3 (21-27) mEq/L ABG Total CO2 (20-26) mEq/L ABG O2 Saturation (95-98) % ABG Base Excess (-2 to 3) mEq/L Roverto Test Respiration Rate O2 Delivery Device Blood Gas Modality Inspired O2 (1-15=lpm [id number]=%) Tidal Volume cc PEEP cm H2O Sodium (136-145) mEq/L Potassium (3.5-4.5) mEq/L Chloride (98-109) mEq/L Carbon Dioxide (19-29) mEq/L BUN (7-20) mg/dL Creatinine (0.57-1.11) mg/dL Est GFR ( Amer) (> 60) Est GFR (Non-Af Amer) (> 60) BUN/Creatinine Ratio (6-26) Glucose (70-99) mg/dL POC Glucose 133 H 139 H (58-89) Calculated Osmolality (280-300) Calcium (8.6-10.8) mg/dL Ionized Calcium (1.15-1.35) mmol/L Phosphorus (2.3-4.7) mg/dL Magnesium (1.6-2.6) mg/dL Total Bilirubin (0.2-1.2) mg/dL Direct Bilirubin (0.0-0.5) mg/dL Indirect Bilirubin (0.0-1.2) mg/dL AST (5-34) Units/L ALT (0-55) Units/L Alkaline Phosphatase (38-126) Units/L Serum Total Protein (6.0-8.3) g/dL Albumin (3.5-5.0) g/dL Globulin (2.4-3.5) g/dL Albumin/Globulin Ratio (1.1-2.2) 07/06/17 07/06/17 07/06/17 Range/Units 03:24 03:24 04:57 WBC (4.3-11.1) K/mcL RBC (3.82-4.97) M/mcL Hgb (11.5-15.4) g/dL Hct (35.3-44.9) % MCV (83.0-100.0) fL MCH (28.0-33.3) pg MCHC (31.6-35.5) g/dL RDW (11.5-14.5) % Plt Count (140-400) K/mcL MPV (9.4-12.4) fL Immature Gran % (0-4) % Seg Neutrophils % % Band Neutrophils % (0-4) % Lymphocytes % % Monocytes % % Eosinophils % % Basophils % % Neutrophils # (1.6-8.9) K/mcL Lymphocytes # (0.6-4.6) K/mcL Monocytes # (0.0-1.3) K/mcL Eosinophils # (0.0-0.6) K/mcL Basophils # (0.0-0.2) K/mcL Nucleated RBCs/100 WBC (0) /100 WBC Platelet Estimate (Normal) Large Platelets (Not Present) Immature Plt Fraction (1.1-6.1) % Anisocytosis (Not Present) PT 11.3 D (9.4-12.1) Seconds INR 1.1 D Sample Site R Radial ABG pH 7.48 H (7.32-7.45) pH Units ABG pCO2 41 (35-45) mmHg ABG pO2 92 (85-104) mmHg ABG HCO3 30 H (21-27) mEq/L ABG Total CO2 31 H (20-26) mEq/L ABG O2 Saturation 98 (95-98) % ABG Base Excess 6 H (-2 to 3) mEq/L Roverto Test N/A Respiration Rate 10 O2 Delivery Device Adult Vent Blood Gas Modality ASSIST CONTROL Inspired O2 30.0 (1-15=lpm [id number]=%) Tidal Volume 420 cc PEEP 5 cm H2O Sodium 139 (136-145) mEq/L Potassium 3.3 L (3.5-4.5) mEq/L Chloride 106 (98-109) mEq/L Carbon Dioxide 27 (19-29) mEq/L BUN 20 (7-20) mg/dL Creatinine 0.71 (0.57-1.11) mg/dL Est GFR ( Amer) > 60 (> 60) Est GFR (Non-Af Amer) > 60 (> 60) BUN/Creatinine Ratio 28 H (6-26) Glucose 129 H (70-99) mg/dL POC Glucose (58-89) Calculated Osmolality 292 (280-300) Calcium 7.5 L (8.6-10.8) mg/dL Ionized Calcium 1.14 L (1.15-1.35) mmol/L Phosphorus 1.1 L (2.3-4.7) mg/dL Magnesium 1.9 (1.6-2.6) mg/dL Total Bilirubin 0.6 (0.2-1.2) mg/dL Direct Bilirubin 0.3 (0.0-0.5) mg/dL Indirect Bilirubin 0.3 (0.0-1.2) mg/dL AST 20 (5-34) Units/L ALT 24 (0-55) Units/L Alkaline Phosphatase 120 (38-126) Units/L Serum Total Protein 4.2 L (6.0-8.3) g/dL Albumin 1.6 L (3.5-5.0) g/dL Globulin 2.6 (2.4-3.5) g/dL Albumin/Globulin Ratio 0.6 L (1.1-2.2) 07/06/17 07/06/17 07/06/17 Range/Units 12:28 18:47 23:07 WBC (4.3-11.1) K/mcL RBC (3.82-4.97) M/mcL Hgb (11.5-15.4) g/dL Hct (35.3-44.9) % MCV (83.0-100.0) fL MCH (28.0-33.3) pg MCHC (31.6-35.5) g/dL RDW (11.5-14.5) % Plt Count (140-400) K/mcL MPV (9.4-12.4) fL Immature Gran % (0-4) % Seg Neutrophils % % Band Neutrophils % (0-4) % Lymphocytes % % Monocytes % % Eosinophils % % Basophils % % Neutrophils # (1.6-8.9) K/mcL Lymphocytes # (0.6-4.6) K/mcL Monocytes # (0.0-1.3) K/mcL Eosinophils # (0.0-0.6) K/mcL Basophils # (0.0-0.2) K/mcL Nucleated RBCs/100 WBC (0) /100 WBC Platelet Estimate (Normal) Large Platelets (Not Present) Immature Plt Fraction (1.1-6.1) % Anisocytosis (Not Present) PT (9.4-12.1) Seconds INR Sample Site ABG pH (7.32-7.45) pH Units ABG pCO2 (35-45) mmHg ABG pO2 (85-104) mmHg ABG HCO3 (21-27) mEq/L ABG Total CO2 (20-26) mEq/L ABG O2 Saturation (95-98) % ABG Base Excess (-2 to 3) mEq/L Roverto Test Respiration Rate O2 Delivery Device Blood Gas Modality Inspired O2 (1-15=lpm [id number]=%) Tidal Volume cc PEEP cm H2O Sodium (136-145) mEq/L Potassium (3.5-4.5) mEq/L Chloride (98-109) mEq/L Carbon Dioxide (19-29) mEq/L BUN (7-20) mg/dL Creatinine (0.57-1.11) mg/dL Est GFR ( Amer) (> 60) Est GFR (Non-Af Amer) (> 60) BUN/Creatinine Ratio (6-26) Glucose (70-99) mg/dL POC Glucose 129 H 141 H 144 H (58-89) Calculated Osmolality (280-300) Calcium (8.6-10.8) mg/dL Ionized Calcium (1.15-1.35) mmol/L Phosphorus (2.3-4.7) mg/dL Magnesium (1.6-2.6) mg/dL Total Bilirubin (0.2-1.2) mg/dL Direct Bilirubin (0.0-0.5) mg/dL Indirect Bilirubin (0.0-1.2) mg/dL AST (5-34) Units/L ALT (0-55) Units/L Alkaline Phosphatase (38-126) Units/L Serum Total Protein (6.0-8.3) g/dL Albumin (3.5-5.0) g/dL Globulin (2.4-3.5) g/dL Albumin/Globulin Ratio (1.1-2.2) 07/07/17 07/07/17 07/07/17 Range/Units 03:51 03:51 03:51 WBC 12.1 H (4.3-11.1) K/mcL RBC 2.81 L (3.82-4.97) M/mcL Hgb 8.0 L D (11.5-15.4) g/dL Hct 24.2 L (35.3-44.9) % MCV 86.1 (83.0-100.0) fL MCH 28.5 (28.0-33.3) pg MCHC 33.1 (31.6-35.5) g/dL RDW 17.3 H (11.5-14.5) % Plt Count 220 (140-400) K/mcL MPV 9.9 (9.4-12.4) fL Immature Gran % (0-4) % Seg Neutrophils % 80.0 % Band Neutrophils % 2.0 (0-4) % Lymphocytes % 16.0 % Monocytes % 2.0 % Eosinophils % % Basophils % % Neutrophils # 9.9 H (1.6-8.9) K/mcL Lymphocytes # 1.9 (0.6-4.6) K/mcL Monocytes # 0.2 (0.0-1.3) K/mcL Eosinophils # (0.0-0.6) K/mcL Basophils # (0.0-0.2) K/mcL Nucleated RBCs/100 WBC 0.2 H (0) /100 WBC Platelet Estimate Normal (Normal) Large Platelets Present A (Not Present) Immature Plt Fraction 4.4 (1.1-6.1) % Anisocytosis 1+ A (Not Present) PT 11.3 (9.4-12.1) Seconds INR 1.1 Sample Site ABG pH (7.32-7.45) pH Units ABG pCO2 (35-45) mmHg ABG pO2 (85-104) mmHg ABG HCO3 (21-27) mEq/L ABG Total CO2 (20-26) mEq/L ABG O2 Saturation (95-98) % ABG Base Excess (-2 to 3) mEq/L Roverto Test Respiration Rate O2 Delivery Device Blood Gas Modality Inspired O2 (1-15=lpm [id number]=%) Tidal Volume cc PEEP cm H2O Sodium 140 (136-145) mEq/L Potassium 3.4 L (3.5-4.5) mEq/L Chloride 107 (98-109) mEq/L Carbon Dioxide 26 (19-29) mEq/L BUN 27 H (7-20) mg/dL Creatinine 0.74 (0.57-1.11) mg/dL Est GFR ( Amer) > 60 (> 60) Est GFR (Non-Af Amer) > 60 (> 60) BUN/Creatinine Ratio 36 H (6-26) Glucose 132 H (70-99) mg/dL POC Glucose (58-89) Calculated Osmolality 297 (280-300) Calcium 7.4 L (8.6-10.8) mg/dL Ionized Calcium 1.11 L (1.15-1.35) mmol/L Phosphorus 1.1 L (2.3-4.7) mg/dL Magnesium 1.7 (1.6-2.6) mg/dL Total Bilirubin 0.8 (0.2-1.2) mg/dL Direct Bilirubin 0.4 (0.0-0.5) mg/dL Indirect Bilirubin 0.4 (0.0-1.2) mg/dL AST 64 H (5-34) Units/L ALT 50 (0-55) Units/L Alkaline Phosphatase 142 H (38-126) Units/L Serum Total Protein 4.4 L (6.0-8.3) g/dL Albumin 1.8 L (3.5-5.0) g/dL Globulin 2.6 (2.4-3.5) g/dL Albumin/Globulin Ratio 0.7 L (1.1-2.2) 07/07/17 Range/Units 04:15 WBC (4.3-11.1) K/mcL RBC (3.82-4.97) M/mcL Hgb (11.5-15.4) g/dL Hct (35.3-44.9) % MCV (83.0-100.0) fL MCH (28.0-33.3) pg MCHC (31.6-35.5) g/dL RDW (11.5-14.5) % Plt Count (140-400) K/mcL MPV (9.4-12.4) fL Immature Gran % (0-4) % Seg Neutrophils % % Band Neutrophils % (0-4) % Lymphocytes % % Monocytes % % Eosinophils % % Basophils % % Neutrophils # (1.6-8.9) K/mcL Lymphocytes # (0.6-4.6) K/mcL Monocytes # (0.0-1.3) K/mcL Eosinophils # (0.0-0.6) K/mcL Basophils # (0.0-0.2) K/mcL Nucleated RBCs/100 WBC (0) /100 WBC Platelet Estimate (Normal) Large Platelets (Not Present) Immature Plt Fraction (1.1-6.1) % Anisocytosis (Not Present) PT (9.4-12.1) Seconds INR Sample Site L Brach ABG pH 7.39 (7.32-7.45) pH Units ABG pCO2 46 H (35-45) mmHg ABG pO2 110 H (85-104) mmHg ABG HCO3 28 H (21-27) mEq/L ABG Total CO2 29 H (20-26) mEq/L ABG O2 Saturation 98 (95-98) % ABG Base Excess 3 (-2 to 3) mEq/L Roverto Test N/A Respiration Rate 10 O2 Delivery Device Adult Vent Blood Gas Modality ASSIST CONTROL Inspired O2 30.0 (1-15=lpm [id number]=%) Tidal Volume 350 cc PEEP 5 cm H2O Sodium (136-145) mEq/L Potassium (3.5-4.5) mEq/L Chloride (98-109) mEq/L Carbon Dioxide (19-29) mEq/L BUN (7-20) mg/dL Creatinine (0.57-1.11) mg/dL Est GFR ( Amer) (> 60) Est GFR (Non-Af Amer) (> 60) BUN/Creatinine Ratio (6-26) Glucose (70-99) mg/dL POC Glucose (58-89) Calculated Osmolality (280-300) Calcium (8.6-10.8) mg/dL Ionized Calcium (1.15-1.35) mmol/L Phosphorus (2.3-4.7) mg/dL Magnesium (1.6-2.6) mg/dL Total Bilirubin (0.2-1.2) mg/dL Direct Bilirubin (0.0-0.5) mg/dL Indirect Bilirubin (0.0-1.2) mg/dL AST (5-34) Units/L ALT (0-55) Units/L Alkaline Phosphatase (38-126) Units/L Serum Total Protein (6.0-8.3) g/dL Albumin (3.5-5.0) g/dL Globulin (2.4-3.5) g/dL Albumin/Globulin Ratio (1.1-2.2) BMP 07/07/17 03:51 Sodium 140 Potassium 3.4 L Chloride 107 Carbon Dioxide 26 BUN 27 H Creatinine 0.74 Glucose 132 H Calcium 7.4 L Liver Function 07/07/17 Range/Units 03:51 Total Bilirubin 0.8 (0.2-1.2) mg/dL Direct Bilirubin 0.4 (0.0-0.5) mg/dL AST 64 H (5-34) Units/L ALT 50 (0-55) Units/L Alkaline Phosphatase 142 H (38-126) Units/L Albumin 1.8 L (3.5-5.0) g/dL - ABG Interpretation ABG results: ABG ABG pH 7.39 pH Units (7.32-7.45) 07/07/17 04:15 ABG pCO2 46 mmHg (35-45) H 07/07/17 04:15 ABG pO2 110 mmHg (85-104) H 07/07/17 04:15 ABG O2 Saturation 98 % (95-98) 07/07/17 04:15 PT/INR, D-dimer PT 11.3 Seconds (9.4-12.1) 07/07/17 03:51 Consult Discharge Plan - Plan Referrals: NONE,PCP [Primary Care Provider] - Palliative Quality Palliative Quality: Screen for Code Status: NA (Awaiting family/currently DNRCC/ A), Screen for Goals of Care: NA, Screen for Pain: Yes, If Pain Regimen Started , Initiate Bowel Regimen: NA, Screen for Nausea/Vomitting: NA Code Status: 06/29/17 11:01 Resuscitation Status: Active [RES] Routine Comment: Resuscitation Status: Full Code 07/01/17 12:56 CODE [Resuscitation Status: Active] [RES] Routine Comment: Resuscitation Status: DNR-Comfort Care-Arrest
--- NOTE | 2017-07-07 13:33 | Event Note ---
Date of Encounter: 07/07/17 Time of Encounter: 13:30 Spoke with son Chente via telephone as well as Trinidad, Mk, and Es. Siblings in agreement with Chente making medical decisions for pt. Chente stated that he will be here tomorrow (Wed) and will change code status. He desires to proceed forward with compassionate extubation and see how pt does. If she does poorly, he desires her to be comfortable. Es expressed that she would like to be present when her mother comes off ventilator, however, she is trying to find transportation to get to the hospital tomorrow. She is to call me when she finds out what time she can be here. Would like extubation to wait until she arrives. I spoke with Mk via telephone to see if he needed any further information, allow him time to ask questions, which he declined. He stated to me that he told his brother Chente to make her medical decisions for her. Will f/u in am when Chente arrives. D/W primary nurse Arnaud.
[2017-07-08] MEDS: Piperacillin/Tazobactam 3.375 GM in D5% in Water (Mini-Bag+) 100 ML IVPB SCH ×4 (00:18→23:00)
[2017-07-08] MEDS: Insulin LISPRO 300 UNITS/3 ML VIAL SQ SCH ×5 (00:18→23:22)
[2017-07-08] MEDS: Vasopressin 40 UNIT in D5% in Water 100 ML IV SCH ×2 (00:19→17:42)
[2017-07-08] MEDS: Lacri-Lube 3.5 GM TUBE BOTH EYES SCH ×7 (00:19→23:01)
[2017-07-08] MEDS: PrismaSATE BGK 4/2.5 5,000 ML CRRT SCH ×8 (00:58→21:24)
[2017-07-08] MEDS: Dexmedetomidine HCl 400 MCG/100 ML MLS IVC SCH ×5 (03:12→20:58)
[2017-07-08] MEDS: Phenylephrine 50 MG in D5% in Water 250 ML IVC SCH ×2 (04:00→15:02)
[2017-07-08 04:33] LABS: ABG Base Excess 5 mEq/L (-2 to 3); ABG HCO3 29 mEq/L (21-27); ABG Oxygen Saturation 98 % (95-98); ABG PCO2 43 mmHg (35-45); ABG PH 7.44 pH Units (7.32-7.45); ABG PO2 107 mmHg (85-104); ABG TCO2 30 mEq/L (20-26); Blood Gas Modality ASSIST CONTROL; Blood Gas PEEP 5 cm H2O; Blood Gas Respiration Rate 10; Blood Gas VT 350 cc
[2017-07-08 04:34] LABS: Prothrombin Time 10.7 Seconds (9.4-12.1)
[2017-07-08 04:41] LABS: Basophils % 0.3 %; Eosinophils # 0.1 K/mcL (0.0-0.6); Eosinophils % 0.9 %; Hematocrit 23.7 % (35.3-44.9); Hemoglobin 7.6 g/dL (11.5-15.4); Lymphocytes # 1.1 K/mcL (0.6-4.6); Lymphocytes % 9.6 %; Mean Corpuscular HGB Conc 32.1 g/dL (31.6-35.5); Mean Corpuscular Hemoglobin 28.3 pg (28.0-33.3); Mean Corpuscular Volume 88.1 fL (83.0-100.0); Mean Platelet Volume 10.3 fL (9.4-12.4); Monocytes # 0.5 K/mcL (0.0-1.3); Monocytes % 4.5 %; Neutrophils # 9.7 K/mcL (1.6-8.9); Nucleated Red Blood Cells 0.2 /100 WBC (0); Platelet Count 228 K/mcL (140-400); Red Blood Count 2.69 M/mcL (3.82-4.97); Red Cell Distribution Width 17.9 % (11.5-14.5); Segmented Neutrophils % 81.7 %
[2017-07-08 04:49] LABS: Ionized Calcium 1.13 mmol/L (1.15-1.35)
[2017-07-08 04:56] LABS: Alanine Aminotransferase 92 Units/L (0-55); Albumin/Globulin Ratio 0.6 (1.1-2.2); Alkaline Phosphatase 156 Units/L (38-126); Aspartate Amino Transferase 105 Units/L (5-34); BUN/Creatinine Ratio 38 (6-26); Bilirubin,Direct 0.4 mg/dL (0.0-0.5); Bilirubin,Indirect 0.2 mg/dL (0.0-1.2); Bilirubin,Total 0.6 mg/dL (0.2-1.2); Blood Urea Nitrogen 26 mg/dL (7-20); Calcium 7.6 mg/dL (8.6-10.8); Carbon Dioxide 27 mEq/L (19-29); Chloride 105 mEq/L (98-109); Globulin 2.9 g/dL (2.4-3.5); Glucose 164 mg/dL (70-99); Magnesium 1.7 mg/dL (1.6-2.6); Osmolality,Calculated 294 (280-300); Potassium 4.4 mEq/L (3.5-4.5); Sodium 138 mEq/L (136-145); Total Protein 4.5 g/dL (6.0-8.3); eGFR For African Americans > 60 (> 60); eGFR For Non-African Americans > 60 (> 60)
[2017-07-08 05:17] LABS: Albumin 1.6 g/dL (3.5-5.0); Phosphorous 1.9 mg/dL (2.3-4.7)
[2017-07-08] MEDS: 0.9 % Sodium Chloride 1,000 ML PRIME SCH ×2 (06:00→12:16)
[2017-07-08] MEDS: Hydrocortisone Sodium Succ 100 MG/2 ML VIAL IVP SCH ×2 (06:01→17:08)
[2017-07-08] MEDS: *HR* Heparin 5,000 UNIT/ML VIAL SQ SCH ×2 (06:02→17:08)
[2017-07-08] MEDS: Aspirin 81 MG TAB.CHEW PO SCH (07:12)
[2017-07-08] MEDS: Chlorhexidine Rinse 15 ML MOUTHWASH MM SCH ×2 (07:12→19:39)
[2017-07-08] MEDS: Fluconazole 200 MG/100 ML 200 MG/100 ML BAG IVPB SCH (07:13)
[2017-07-08] MEDS: *HR* Amiodarone 200 MG TABLET PO SCH (07:13)
[2017-07-08] MEDS: Pantoprazole 40 MG VIAL IVPB SCH (07:19)
[2017-07-08] MEDS: FentaNYL (PF) 1,000 MCG in 0.9 % Sodium Chloride 80 ML IVC SCH ×2 (08:33→20:59)
--- NOTE | 2017-07-08 08:38 | Pulmonology Progress Note ---
<Daniel Garcia - Last Filed: 07/08/17 08:35> Date of Encounter: 07/08/17 Time of Encounter: 08:35 Assessment and Plan (1) Septic shock Current Visit: Yes Status: Acute Patient remains in septic shock however she did improve as she is only requiring phenylephrine for blood pressure support, which we are continually attempting to wean down, but so far we have been unsuccessful in completely discontinuing it. Urine positive for ESBL Escherichia coli. Levaquin has been discontinued, continue Zosyn. (2) UTI (urinary tract infection) Current Visit: No Status: Acute As above, due to ESBL Escherichia coli, sensitive to Zosyn. CT scan did reveal a 2 mm stone that may be contributing but unlikely. ureteral stent placed last week by urology. Qualifiers: Urinary tract infection type: acute cystitis Hematuria presence: without hematuria Qualified Code(s): N30.00 - Acute cystitis without hematuria (3) ESRD (end stage renal disease) on dialysis Current Visit: Yes Status: Chronic Patient continues to have minimal urine output. Continue renal replacement therapy. Nephrology is following. (4) Atrial fibrillation with RVR Current Visit: Yes Status: Acute Heart rate has stabilized and is under good control. Patient appears to be in normal sinus rhythm at this time. Heart rate does elevate when the patient is moved. Patient has been transitioned to by mouth amiodarone. We will hold anticoagulation at this time given the patient's critical illness and high risk for bleeding (5) Stress-induced cardiomyopathy Current Visit: Yes Status: Acute Patient was found to have normal coronary arteries with decreased EF of 35% with apical akinesis and severe hypokinesis of the inferior apical wall on heart cath yesterday. Hemodynamics appear to be improving (6) Left ureteral stone Current Visit: Yes Status: Acute Ureteral stent placed last week. Unclear if this is contributing to the patient 's infection. (7) Decubital ulcer Current Visit: Yes Status: Acute Present on arrival. Qualifiers: Pressure ulcer location: sacral region Pressure ulcer stage: stage 2 Qualified Code(s): L89.152 - Pressure ulcer of sacral region, stage 2 (8) Diabetes mellitus Current Visit: Yes Status: Acute Blood sugars have been much improved. Continue sliding-scale insulin. Continue to monitor blood sugars. Continue tube feeds Qualifiers: Diabetes mellitus type: type 2 Diabetes mellitus complication status: without complication Diabetes mellitus residential insulin use: unspecified residential insulin use status Qualified Code(s): E11.9 - Type 2 diabetes mellitus without complications (9) Goals of care, counseling/discussion Current Visit: No Status: Acute Family appears to wish to forego tracheostomy and PEG tube placement however there has been some difficulty in getting all of the children to agree on a plan of care. At this point the plan is to perform compassionate extubation tomorrow at 2 PM. We will continually discussed with family and reassess goals of care and treatment plan. Subjective Principal diagnosis: Septic shock Interval history: Patient seen and examined at bedside. She remains intubated and sedated. Her requirements for vasopressors decreased and she is only requiring one pressor for support at this time. Objective PUL Vital signs: Last Vital Signs Temp 97.9 F 07/08/17 08:00 Pulse 74 07/08/17 08:00 Resp 15 07/08/17 08:00 BP 96/52 07/08/17 08:00 Pulse Ox 100 07/08/17 08:00 General appearance: comatose ENT: oropharynx moist Auscultation: bilateral: diminished breath sounds Gastrointestinal: hypoactive bowel sounds, soft, non-tender, non-distended Extremities: no cyanosis, no clubbing, edema (3+) unable to assess due to mental status Ventilator Settings Ventilator Settings: Ventilator Settings, Last 8 Hours Ventilator Mode VC+ Ventilator Mode VC+ Ventilator Mode VC+ Ventilator Mode VC+ Ventilator Mode VC+ Ventilator Mode VC+ Ventilator Mode VC+ Ventilator Tidal Volume 350 Setting Ventilator Tidal Volume 350 Setting Ventilator Tidal Volume 350 Setting Ventilator Tidal Volume 350 Setting Ventilator Tidal Volume 350 Setting Ventilator Tidal Volume 350 Setting Ventilator Tidal Volume 350 Setting Ventilator Respiratory Rate 10 Setting Ventilator Respiratory Rate 10 Setting Ventilator Respiratory Rate 10 Setting Ventilator Respiratory Rate 10 Setting Ventilator Respiratory Rate 10 Setting Ventilator Respiratory Rate 10 Setting Ventilator Respiratory Rate 10 Setting Actual Respiratory Rate 15 Actual Respiratory Rate 35 Actual Respiratory Rate 30 Actual Respiratory Rate 30 Actual Respiratory Rate 31 Actual Respiratory Rate 17 Positive End Expiratory 5 Pressure Positive End Expiratory 5 Pressure Positive End Expiratory 5 Pressure Positive End Expiratory 5 Pressure Positive End Expiratory 5 Pressure Positive End Expiratory 5 Pressure Positive End Expiratory 5 Pressure Peak Inspiratory Airway 12 Pressure Peak Inspiratory Airway 26 Pressure Peak Inspiratory Airway 25 Pressure Peak Inspiratory Airway 23 Pressure Peak Inspiratory Airway 21 Pressure Peak Inspiratory Airway 10 Pressure Results - Laboratory Findings CBC and BMP: 07/08/17 04:22 07/08/17 04:22 ABG ABG pH 7.44 pH Units (7.32-7.45) 07/08/17 04:30 ABG pCO2 43 mmHg (35-45) 07/08/17 04:30 ABG pO2 107 mmHg (85-104) H 07/08/17 04:30 ABG O2 Saturation 98 % (95-98) 07/08/17 04:30 PT/INR, D-dimer PT 10.7 Seconds (9.4-12.1) 07/08/17 04:22 Abnormal lab findings: Abnormal lab results WBC 11.9 K/mcL (4.3-11.1) H 07/08/17 04:22 RBC 2.69 M/mcL (3.82-4.97) L 07/08/17 04:22 Hgb 7.6 g/dL (11.5-15.4) L 07/08/17 04:22 Hct 23.7 % (35.3-44.9) L 07/08/17 04:22 RDW 17.9 % (11.5-14.5) H 07/08/17 04:22 Neutrophils # 9.7 K/mcL (1.6-8.9) H 07/08/17 04:22 Nucleated RBCs/100 WBC 0.2 /100 WBC (0) H 07/08/17 04:22 Hypersegmented Neuts Present (Not Present) A 07/01/17 05:17 Toxic Granulation Present (Not Present) A 07/01/17 05:17 Large Platelets Present (Not Present) A 07/07/17 03:51 Anisocytosis 1+ (Not Present) A 07/07/17 03:51 APTT 51.5 Seconds (26.0-36.0) H 07/02/17 10:07 Heparin Anti-Xa, Unfract 0.05 IU/mL (0.30-0.70) L 07/01/17 19:39 ABG pO2 107 mmHg (85-104) H 07/08/17 04:30 ABG HCO3 29 mEq/L (21-27) H 07/08/17 04:30 ABG Total CO2 30 mEq/L (20-26) H 07/08/17 04:30 ABG Base Excess 5 mEq/L (-2 to 3) H 07/08/17 04:30 VBG pH 7.24 pH Units (7.32-7.42) L 07/01/17 01:51 BUN 26 mg/dL (7-20) H 07/08/17 04:22 BUN/Creatinine Ratio 38 (6-26) H 07/08/17 04:22 Glucose 164 mg/dL (70-99) H 07/08/17 04:22 POC Glucose 131 (58-89) H 07/08/17 06:16 Lactic Acid 2.8 mmol/L (0.5-2.2) H 07/01/17 05:17 Calcium 7.6 mg/dL (8.6-10.8) L 07/08/17 04:22 Ionized Calcium 1.13 mmol/L (1.15-1.35) L 07/08/17 04:22 Phosphorus 1.9 mg/dL (2.3-4.7) L D 07/08/17 04:22 AST 105 Units/L (5-34) H 07/08/17 04:22 ALT 92 Units/L (0-55) H 07/08/17 04:22 Alkaline Phosphatase 156 Units/L (38-126) H 07/08/17 04:22 Creatine Kinase 544 Units/L (29-168) H 07/01/17 05:17 Troponin I 1.64 ng/mL (0-0.03) H* 07/02/17 04:25 Serum Total Protein 4.5 g/dL (6.0-8.3) L 07/08/17 04:22 Albumin 1.6 g/dL (3.5-5.0) L 07/08/17 04:22 Albumin/Globulin Ratio 0.6 (1.1-2.2) L 07/08/17 04:22 Salicylates < 5.0 mg/dL (15-30) L 06/29/17 11:15 Acetaminophen < 1.0 mcg/mL (10-30) L 06/29/17 11:15 - Clinical Findings Intake & Output: Intake & Output 07/07/17 07/08/17 07/08/17 23:59 07:59 15:59 Intake Total 1032.7 / 1032.7 1116.4 / 1116.4 71 / 71 Output Total 1062 / 1062 1023 / 1023 138 / 138 Balance -29.3 / -29.3 93.4 / 93.4 -67 / -67 Weight 133.3 kg - VTE Documentation of Mechanical Device: Intermittent pneumatic compression device Consult Discharge Plan - Plan Referrals: NONE,PCP [Primary Care Provider] - <Charles Morgan - Last Filed: 07/08/17 21:46> Date of Encounter: 07/08/17 Objective PUL Vital signs: Last Vital Signs Temp 97.8 F 07/08/17 15:00 Pulse 92 07/08/17 20:09 Resp 17 07/08/17 20:22 BP 86/45 07/08/17 20:22 Pulse Ox 98 07/08/17 20:22 Ventilator Settings Ventilator Settings: Ventilator Settings, Last 8 Hours Ventilator Mode VC+ Ventilator Mode VC+ Ventilator Mode VC+ Ventilator Mode VC+ Ventilator Mode VC+ Ventilator Mode VC+ Ventilator Mode VC+ Ventilator Mode VC+ Ventilator Mode VC+ Ventilator Mode VC+ Ventilator Tidal Volume 350 Setting Ventilator Tidal Volume 350 Setting Ventilator Tidal Volume 350 Setting Ventilator Tidal Volume 350 Setting Ventilator Tidal Volume 350 Setting Ventilator Tidal Volume 350 Setting Ventilator Tidal Volume 350 Setting Ventilator Tidal Volume 350 Setting Ventilator Tidal Volume 350 Setting Ventilator Tidal Volume 350 Setting Ventilator Respiratory Rate 10 Setting Ventilator Respiratory Rate 10 Setting Ventilator Respiratory Rate 10 Setting Ventilator Respiratory Rate 10 Setting Ventilator Respiratory Rate 10 Setting Ventilator Respiratory Rate 10 Setting Ventilator Respiratory Rate 10 Setting Ventilator Respiratory Rate 10 Setting Ventilator Respiratory Rate 10 Setting Ventilator Respiratory Rate 10 Setting Actual Respiratory Rate 17 Actual Respiratory Rate 24 Actual Respiratory Rate 18 Actual Respiratory Rate 18 Actual Respiratory Rate 16 Actual Respiratory Rate 17 Actual Respiratory Rate 17 Actual Respiratory Rate 16 Actual Respiratory Rate 16 Actual Respiratory Rate 16 Positive End Expiratory 5 Pressure Positive End Expiratory 5 Pressure Positive End Expiratory 5 Pressure Positive End Expiratory 5 Pressure Positive End Expiratory 5 Pressure Positive End Expiratory 5 Pressure Positive End Expiratory 5 Pressure Positive End Expiratory 5 Pressure Positive End Expiratory 5 Pressure Positive End Expiratory 5 Pressure Peak Inspiratory Airway 18 Pressure Peak Inspiratory Airway 18 Pressure Peak Inspiratory Airway 10 Pressure Peak Inspiratory Airway 10 Pressure Peak Inspiratory Airway 10 Pressure Peak Inspiratory Airway 10 Pressure Peak Inspiratory Airway 10 Pressure Peak Inspiratory Airway 12 Pressure Peak Inspiratory Airway 12 Pressure Peak Inspiratory Airway 10 Pressure Results - Laboratory Findings CBC and BMP: 07/08/17 04:22 07/08/17 04:22 ABG ABG pH 7.44 pH Units (7.32-7.45) 07/08/17 04:30 ABG pCO2 43 mmHg (35-45) 07/08/17 04:30 ABG pO2 107 mmHg (85-104) H 07/08/17 04:30 ABG O2 Saturation 98 % (95-98) 07/08/17 04:30 PT/INR, D-dimer PT 10.7 Seconds (9.4-12.1) 07/08/17 04:22 Abnormal lab findings: Abnormal lab results WBC 11.9 K/mcL (4.3-11.1) H 07/08/17 04:22 RBC 2.69 M/mcL (3.82-4.97) L 07/08/17 04:22 Hgb 7.6 g/dL (11.5-15.4) L 07/08/17 04:22 Hct 23.7 % (35.3-44.9) L 07/08/17 04:22 RDW 17.9 % (11.5-14.5) H 07/08/17 04:22 Neutrophils # 9.7 K/mcL (1.6-8.9) H 07/08/17 04:22 Nucleated RBCs/100 WBC 0.2 /100 WBC (0) H 07/08/17 04:22 Hypersegmented Neuts Present (Not Present) A 07/01/17 05:17 Toxic Granulation Present (Not Present) A 07/01/17 05:17 Large Platelets Present (Not Present) A 07/07/17 03:51 Anisocytosis 1+ (Not Present) A 07/07/17 03:51 APTT 51.5 Seconds (26.0-36.0) H 07/02/17 10:07 Heparin Anti-Xa, Unfract 0.05 IU/mL (0.30-0.70) L 07/01/17 19:39 ABG pO2 107 mmHg (85-104) H 07/08/17 04:30 ABG HCO3 29 mEq/L (21-27) H 07/08/17 04:30 ABG Total CO2 30 mEq/L (20-26) H 07/08/17 04:30 ABG Base Excess 5 mEq/L (-2 to 3) H 07/08/17 04:30 VBG pH 7.24 pH Units (7.32-7.42) L 07/01/17 01:51 BUN 26 mg/dL (7-20) H 07/08/17 04:22 BUN/Creatinine Ratio 38 (6-26) H 07/08/17 04:22 Glucose 164 mg/dL (70-99) H 07/08/17 04:22 POC Glucose 147 (58-89) H 07/08/17 17:10 Lactic Acid 2.8 mmol/L (0.5-2.2) H 07/01/17 05:17 Calcium 7.6 mg/dL (8.6-10.8) L 07/08/17 04:22 Ionized Calcium 1.13 mmol/L (1.15-1.35) L 07/08/17 04:22 Phosphorus 1.9 mg/dL (2.3-4.7) L D 07/08/17 04:22 AST 105 Units/L (5-34) H 07/08/17 04:22 ALT 92 Units/L (0-55) H 07/08/17 04:22 Alkaline Phosphatase 156 Units/L (38-126) H 07/08/17 04:22 Creatine Kinase 544 Units/L (29-168) H 07/01/17 05:17 Troponin I 1.64 ng/mL (0-0.03) H* 07/02/17 04:25 Serum Total Protein 4.5 g/dL (6.0-8.3) L 07/08/17 04:22 Albumin 1.6 g/dL (3.5-5.0) L 07/08/17 04:22 Albumin/Globulin Ratio 0.6 (1.1-2.2) L 07/08/17 04:22 Salicylates < 5.0 mg/dL (15-30) L 06/29/17 11:15 Acetaminophen < 1.0 mcg/mL (10-30) L 06/29/17 11:15 - Clinical Findings Intake & Output: Intake & Output 07/08/17 07/08/17 07/08/17 07:59 15:59 23:59 Intake Total 1117.0 / 1117.0 6485.7 / 6485.7 741 / 741 Output Total 1023 / 1023 1488 / 1488 786 / 786 Balance 94.0 / 94.0 4997.7 / 4997.7 -45 / -45 Weight 133.3 kg - Attending Attestation I saw the patient with the resident agree with History and Physical exam findings. Labs and Radiology were reviewed Ventilator data were reviewed BEAN PICKER: Patient is intubated and sedated to help to in ventilator assynchrony when we tried wean her she develops worsening hypoxia. Started on Seroquel so we can come down on the versed she is almost getting off the versed NECK : No JVD appreciated Pulmonary : To continue current settings as the gas exchange was stable . SBT was done today , Cardiac : On Vasopressor secondary to Septic shock not much of a clear source most likely ESBL worsened by stress induced cardiomyopathy will try to wean vasopressor put today vasopressor requirements went up Nutrition/GI: Patient is on tube feeds, PPI prophylaxis Renal : Acute on Chronic CVVH , patient dialysis catheter had issues now it is working. Heme onc : No acute issues ID : Treating as septic shock patient is on broad spectrum antibiotics Urine grew ESBL Musculo skeletal / skin issues : Per Nursing Care Protocol Disposition : Criritcal Code status: DNRCCA family discussed patient would not want tracheostomy they are leaning toward comfort care measures only family to come tomorrow afternoon Family/POA: All her 5 Children there is no designated Power of Health And Safety Representative.
[2017-07-08] MEDS ORDERED: Sodium Phosphate 30 MMOL in D5% in Water 100 ML IVPB ONE (10:16)
--- NOTE | 2017-07-08 10:45 | Palliative Progress Note ---
Date of Encounter: 07/08/17 Time of Encounter: 10:40 - Assessment and plan (1) Generalized pain Current Visit: Yes Status: Acute Assessment and plan: Remains on Fentanyl per ICU protocol . Monitor (2) Anxiety Current Visit: Yes Status: Acute Assessment and plan: Continues on Precedex and Versed as well. Monitor (3) Goals of care, counseling/discussion Current Visit: Yes Status: Acute Assessment and plan: Difficult social situation with no POA and patient's children appear to not communicate with each other well. Family called me last night at home, and desire to compassionately extubate tomorrow at 1400 instead of today. Daughter Trinidad stated it was not enough time for family to be present. Son Chente plans to come in am and sign DNR form in am. They are all aware that she may not do well after extubation. Updated Dr. Annino this am as well. (4) Acute respiratory failure requiring reintubation Current Visit: Yes Status: Acute (5) Atrial fibrillation with RVR Current Visit: Yes Status: Acute (6) ESRD (end stage renal disease) on dialysis Current Visit: Yes Status: Chronic (7) Septic shock Current Visit: Yes Status: Acute - Time Spent With Patient Total time spent is greater than 50% in coordination of care (as documented) at patient's floor/unit and/or counseling patient: 25 - 35 minutes - Subjective Interval history: Patient remains sedated on vent, Neosynephrine drip, and on Sinita. Has had a couple of hypoxic episodes - one occurred while I was in room dropping to mid 60 's and returned to 100% within a few minutes. No family present. - Constitutional Vitals: Abnormal lab results WBC 11.9 K/mcL (4.3-11.1) H 07/08/17 04:22 RBC 2.69 M/mcL (3.82-4.97) L 07/08/17 04:22 Hgb 7.6 g/dL (11.5-15.4) L 07/08/17 04:22 Hct 23.7 % (35.3-44.9) L 07/08/17 04:22 RDW 17.9 % (11.5-14.5) H 07/08/17 04:22 Neutrophils # 9.7 K/mcL (1.6-8.9) H 07/08/17 04:22 Nucleated RBCs/100 WBC 0.2 /100 WBC (0) H 07/08/17 04:22 Hypersegmented Neuts Present (Not Present) A 07/01/17 05:17 Toxic Granulation Present (Not Present) A 07/01/17 05:17 Large Platelets Present (Not Present) A 07/07/17 03:51 Anisocytosis 1+ (Not Present) A 07/07/17 03:51 APTT 51.5 Seconds (26.0-36.0) H 07/02/17 10:07 Heparin Anti-Xa, Unfract 0.05 IU/mL (0.30-0.70) L 07/01/17 19:39 ABG pO2 107 mmHg (85-104) H 07/08/17 04:30 ABG HCO3 29 mEq/L (21-27) H 07/08/17 04:30 ABG Total CO2 30 mEq/L (20-26) H 07/08/17 04:30 ABG Base Excess 5 mEq/L (-2 to 3) H 07/08/17 04:30 VBG pH 7.24 pH Units (7.32-7.42) L 07/01/17 01:51 BUN 26 mg/dL (7-20) H 07/08/17 04:22 BUN/Creatinine Ratio 38 (6-26) H 07/08/17 04:22 Glucose 164 mg/dL (70-99) H 07/08/17 04:22 POC Glucose 131 (58-89) H 07/08/17 06:16 Lactic Acid 2.8 mmol/L (0.5-2.2) H 07/01/17 05:17 Calcium 7.6 mg/dL (8.6-10.8) L 07/08/17 04:22 Ionized Calcium 1.13 mmol/L (1.15-1.35) L 07/08/17 04:22 Phosphorus 1.9 mg/dL (2.3-4.7) L D 07/08/17 04:22 AST 105 Units/L (5-34) H 07/08/17 04:22 ALT 92 Units/L (0-55) H 07/08/17 04:22 Alkaline Phosphatase 156 Units/L (38-126) H 07/08/17 04:22 Creatine Kinase 544 Units/L (29-168) H 07/01/17 05:17 Troponin I 1.64 ng/mL (0-0.03) H* 07/02/17 04:25 Serum Total Protein 4.5 g/dL (6.0-8.3) L 07/08/17 04:22 Albumin 1.6 g/dL (3.5-5.0) L 07/08/17 04:22 Albumin/Globulin Ratio 0.6 (1.1-2.2) L 07/08/17 04:22 Salicylates < 5.0 mg/dL (15-30) L 06/29/17 11:15 Acetaminophen < 1.0 mcg/mL (10-30) L 06/29/17 11:15 General appearance: Present: no acute distress - Respiratory Respiratory exam: Present: CTAB Additional comments: Breath sounds course - Cardiovascular Cardiovascular exam: Present: +S1, +S2 - GI/Abdominal GI/Abdominal exam: Present: diminished bowel sounds, soft - Extremities Exam Additional comments: 4+ edema bilateral upper and lower extremities - Neurological Exam Additional comments: Sedated on vent. - Skin Skin exam: Present: dry, pallor, warm Palliative Quality Palliative Quality: Screen for Code Status: NA (Awaiting family/currently DNRCC/ A), Screen for Goals of Care: NA, Screen for Pain: Yes, If Pain Regimen Started , Initiate Bowel Regimen: NA, Screen for Nausea/Vomitting: NA Code Status: 06/29/17 11:01 Resuscitation Status: Active [RES] Routine Comment: Resuscitation Status: Full Code 07/01/17 12:56 CODE [Resuscitation Status: Active] [RES] Routine Comment: Resuscitation Status: DNR-Comfort Care-Arrest - Labs CBC & Chem 7: 07/08/17 04:22 07/08/17 04:22 Labs: Laboratory Results - last 24 hr 07/07/17 07/07/17 07/08/17 11:49 17:07 00:16 WBC RBC Hgb Hct MCV MCH MCHC RDW Plt Count MPV Immature Gran % Seg Neutrophils % Lymphocytes % Monocytes % Eosinophils % Basophils % Neutrophils # Lymphocytes # Monocytes # Eosinophils # Basophils # Nucleated RBCs/100 WBC PT INR ABG pH ABG pCO2 ABG pO2 ABG HCO3 ABG Total CO2 ABG O2 Saturation ABG Base Excess Roverto Test Respiration Rate O2 Delivery Device Blood Gas Modality Inspired O2 Tidal Volume PEEP Sodium Potassium Chloride Carbon Dioxide BUN Creatinine Est GFR ( Amer) Est GFR (Non-Af Amer) BUN/Creatinine Ratio Glucose POC Glucose 152 H 114 H 129 H Calculated Osmolality Calcium Ionized Calcium Phosphorus Magnesium Total Bilirubin Direct Bilirubin Indirect Bilirubin AST ALT Alkaline Phosphatase Serum Total Protein Albumin Globulin Albumin/Globulin Ratio 07/08/17 07/08/17 07/08/17 04:22 04:22 04:22 WBC 11.9 H RBC 2.69 L Hgb 7.6 L Hct 23.7 L MCV 88.1 MCH 28.3 MCHC 32.1 RDW 17.9 H Plt Count 228 MPV 10.3 Immature Gran % 3.0 Seg Neutrophils % 81.7 Lymphocytes % 9.6 Monocytes % 4.5 Eosinophils % 0.9 Basophils % 0.3 Neutrophils # 9.7 H Lymphocytes # 1.1 Monocytes # 0.5 Eosinophils # 0.1 Basophils # 0.0 Nucleated RBCs/100 WBC 0.2 H PT 10.7 INR 1.0 ABG pH ABG pCO2 ABG pO2 ABG HCO3 ABG Total CO2 ABG O2 Saturation ABG Base Excess Roverto Test Respiration Rate O2 Delivery Device Blood Gas Modality Inspired O2 Tidal Volume PEEP Sodium 138 Potassium 4.4 D Chloride 105 Carbon Dioxide 27 BUN 26 H Creatinine 0.69 Est GFR ( Amer) > 60 Est GFR (Non-Af Amer) > 60 BUN/Creatinine Ratio 38 H Glucose 164 H POC Glucose Calculated Osmolality 294 Calcium 7.6 L Ionized Calcium 1.13 L Phosphorus 1.9 L D Magnesium 1.7 Total Bilirubin 0.6 Direct Bilirubin 0.4 Indirect Bilirubin 0.2 AST 105 H ALT 92 H Alkaline Phosphatase 156 H Serum Total Protein 4.5 L Albumin 1.6 L Globulin 2.9 Albumin/Globulin Ratio 0.6 L 07/08/17 07/08/17 04:30 06:16 WBC RBC Hgb Hct MCV MCH MCHC RDW Plt Count MPV Immature Gran % Seg Neutrophils % Lymphocytes % Monocytes % Eosinophils % Basophils % Neutrophils # Lymphocytes # Monocytes # Eosinophils # Basophils # Nucleated RBCs/100 WBC PT INR ABG pH 7.44 ABG pCO2 43 ABG pO2 107 H ABG HCO3 29 H ABG Total CO2 30 H ABG O2 Saturation 98 ABG Base Excess 5 H Roverto Test Positive Respiration Rate 10 O2 Delivery Device Adult Vent Blood Gas Modality ASSIST CONTROL Inspired O2 30.0 Tidal Volume 350 PEEP 5 Sodium Potassium Chloride Carbon Dioxide BUN Creatinine Est GFR ( Amer) Est GFR (Non-Af Amer) BUN/Creatinine Ratio Glucose POC Glucose 131 H Calculated Osmolality Calcium Ionized Calcium Phosphorus Magnesium Total Bilirubin Direct Bilirubin Indirect Bilirubin AST ALT Alkaline Phosphatase Serum Total Protein Albumin Globulin Albumin/Globulin Ratio - ABG Interpretation ABG results: ABG ABG pH 7.44 pH Units (7.32-7.45) 07/08/17 04:30 ABG pCO2 43 mmHg (35-45) 07/08/17 04:30 ABG pO2 107 mmHg (85-104) H 07/08/17 04:30 ABG O2 Saturation 98 % (95-98) 07/08/17 04:30 PT/INR, D-dimer PT 10.7 Seconds (9.4-12.1) 07/08/17 04:22 Consult Discharge Plan - Plan Referrals: NONE,PCP [Primary Care Provider] -
--- NOTE | 2017-07-08 12:29 | Nephrology Progress Note ---
Date of Encounter: 07/08/17 Time of Encounter: 12:26 - Assessment and Plan (1) ESRD (end stage renal disease) on dialysis Current Visit: Yes Status: Chronic Patient will continue on the same CVVH regimen. I reviewed the preoperative care note which indicates the patient will be electively extubated tomorrow afternoon. (2) Acute respiratory failure requiring reintubation Current Visit: Yes Status: Acute Subjective Principal diagnosis: Septic shock Interval history: The patient remains sedated and on the ventilator. She continues to require some vasopressor support for blood pressure. She continues on CVVH with no net fluid removal. Objective - Vital Signs Vital signs: Vital Signs Temp Pulse Resp BP Pulse Ox 07/08/17 12:00 73 15 111/53 99 07/08/17 11:35 10 128/80 100 07/08/17 11:00 97.9 F 86 14 123/80 100 07/08/17 10:00 79 17 101/59 100 07/08/17 09:57 10 100 07/08/17 09:00 73 16 88/45 99 07/08/17 08:00 97.9 F 74 15 96/52 100 07/08/17 07:21 10 99/59 99 07/08/17 07:15 64 07/08/17 07:00 71 12 106/56 100 07/08/17 06:09 37 106/60 100 07/08/17 06:00 65 18 106/60 100 07/08/17 05:00 82 33 87/61 95 07/08/17 04:31 32 108/64 100 07/08/17 04:00 97.3 F L 86 28 108/64 99 07/08/17 03:00 69 22 87/56 100 07/08/17 02:45 20 81/49 100 07/08/17 02:00 78 12 81/55 100 07/08/17 01:00 69 16 92/45 100 07/08/17 00:02 16 97/50 100 07/08/17 00:00 97.7 F 73 17 97/50 100 07/07/17 22:56 65 18 105/60 100 07/07/17 21:59 18 86/49 100 07/07/17 21:57 70 18 86/49 100 07/07/17 21:00 73 19 85/57 100 07/07/17 20:25 18 103/69 99 07/07/17 20:00 98.4 F 70 16 90/46 99 07/07/17 19:00 69 17 100/48 99 07/07/17 18:00 74 18 101/45 99 07/07/17 17:57 18 97/47 99 07/07/17 17:00 74 18 97/47 99 07/07/17 15:15 17 71/37 100 07/07/17 15:00 98.5 F 84 18 71/37 99 07/07/17 14:00 84 21 96/41 100 07/07/17 13:07 21 67/38 99 07/07/17 13:00 77 15 67/38 89 Intake and Output 07/07/17 07/08/17 07/08/17 23:59 07:59 15:59 Intake Total 1032.7 / 1032.7 1117.0 / 1117.0 823.6 / 823.6 Output Total 1062 / 1062 1023 / 1023 955 / 955 Balance -29.3 / -29.3 94.0 / 94.0 -131.4 / -131.4 Intake: IV Fluids 499.7 / 499.7 601.0 / 601.0 462.6 / 462.6 PrismaSATE BGK 4/2.5 5,000 ML @ 0 / 0 0 / 0 2000 mls/hr CRRT CONT [facility] Rx#: [id number] PRECEDEX Premix 400 mcg In 100 192.1 / 192.1 197.4 / 197.4 100 / 100 ml @ 0.2 MCG/KG/HR 6.365 mls/hr IVC .[id number] [facility] Rx#: [id number] FentaNYL (PF) 1,000 MCG In 0.9 71.1 / 71.1 86.1 / 86.1 24 / 24 % Sodium Chloride 80 ML @ 50 MCG/HR 5 mls/hr IVC CONT [facility] Rx #:[id number] Versed 50 MG In 0.9 % Sodium 55.0 / 55.0 42.0 / 42.0 47.6 / 47.6 Chloride 90 ML @ 2 MG/HR 4 mls/ hr IVC CONT [facility] Rx#:[id number] Phenylephrine 50 MG In Dextrose 81.5 / 81.5 164.5 / 164.5 71 / 71 5% 250 ML @ 180 MCG/MIN 55.08 mls/hr IVC CONT [facility] Rx#: [id number] Diflucan Premix 200 MG/100 ML 100 / 100 200 mg In 100 ml @ 100 mls/hr IVPB DAILY [facility] Rx#:[id number] Zosyn 3.375 GM In Dextrose 5% ( 100 / 100 111.0 / 111.0 100 / 100 Minibag+) 100 ML 100 ML @ 25 mls/hr IVPB Q8H [facility] Rx#: [id number] Sodium Phosphate 30 MMOL In 20 / 20 Dextrose 5% 100 ML @ 16 mls/hr IVPB ONCE ONE Rx#:[id number] Oral 157 / 157 Tube Feeding 331 / 331 516 / 516 361 / 361 Free Water 45 / 45 Output: Sintia 892 / 892 831 / 831 803 / 803 Rectal Tube 100 / 100 0 / 0 Catheter 70 / 70 192 / 192 152 / 152 Other: Stool Consistency liquid Stool Color Brown Weight 133.3 kg Blood Glucose* 114 131 134 Patient Weight 07/08/17 23:59 Weight 133.3 kg - General Appearance Exam: Patient is sedated on the ventilator. Lungs coarse breath sounds. Heart regular rate and rhythm. Abdomen shows no guarding or rigidity. There is some lower extremity swelling. There is a tunnel dialysis catheter in the right chest. - Lab 07/08/17 04:22 07/08/17 04:22 Most recent lab results ABG pH 7.44 pH Units (7.32-7.45) 07/08/17 04:30 ABG pCO2 43 mmHg (35-45) 07/08/17 04:30 ABG pO2 107 mmHg (85-104) H 07/08/17 04:30 ABG HCO3 29 mEq/L (21-27) H 07/08/17 04:30 ABG O2 Saturation 98 % (95-98) 07/08/17 04:30 Calcium 7.6 mg/dL (8.6-10.8) L 07/08/17 04:22 Phosphorus 1.9 mg/dL (2.3-4.7) L D 07/08/17 04:22 Magnesium 1.7 mg/dL (1.6-2.6) 07/08/17 04:22 - VTE Documentation of Mechanical Device: Intermittent pneumatic compression device Consult Discharge Plan - Plan Referrals: NONE,PCP [Primary Care Provider] -
[2017-07-08] MEDS ORDERED: *HR* Heparin 5,000 UNIT/ML VIAL ONE (19:28)
[2017-07-09] MEDS: PrismaSATE BGK 4/2.5 5,000 ML CRRT SCH ×3 (00:25→04:48)
[2017-07-09] MEDS: Dexmedetomidine HCl 400 MCG/100 ML MLS IVC SCH ×3 (01:59→11:41)
[2017-07-09] MEDS: 0.9 % Sodium Chloride 1,000 ML PRIME SCH ×2 (03:20→07:26)
[2017-07-09] MEDS: Lacri-Lube 3.5 GM TUBE BOTH EYES SCH ×3 (03:20→11:12)
[2017-07-09] MEDS: *HR* Heparin 5,000 UNIT/ML VIAL IV PRN ×2 (03:40→03:41)
[2017-07-09 04:15] LABS: ABG Base Excess 4 mEq/L (-2 to 3); ABG HCO3 29 mEq/L (21-27); ABG Oxygen Saturation 98 % (95-98); ABG PCO2 44 mmHg (35-45); ABG PH 7.43 pH Units (7.32-7.45); ABG PO2 95 mmHg (85-104); ABG TCO2 31 mEq/L (20-26); Blood Gas Modality PRVC; Blood Gas PEEP 5 cm H2O; Blood Gas Respiration Rate 10; Blood Gas VT 350 cc
[2017-07-09] MEDS: Hydrocortisone Sodium Succ 100 MG/2 ML VIAL IVP SCH (04:47)
[2017-07-09] MEDS: *HR* Heparin 5,000 UNIT/ML VIAL SQ SCH (04:47)
[2017-07-09 04:53] LABS: Basophils % 0.2 %; Eosinophils # 0.2 K/mcL (0.0-0.6); Eosinophils % 1.9 %; Hematocrit 22.3 % (35.3-44.9); Hemoglobin 7.1 g/dL (11.5-15.4); Immature Granulocytes % 2.2 % (0-4); Lymphocytes # 1.3 K/mcL (0.6-4.6); Lymphocytes % 10.3 %; Mean Corpuscular HGB Conc 31.8 g/dL (31.6-35.5); Mean Corpuscular Hemoglobin 28.6 pg (28.0-33.3); Mean Corpuscular Volume 89.9 fL (83.0-100.0); Mean Platelet Volume 10.1 fL (9.4-12.4); Monocytes # 0.4 K/mcL (0.0-1.3); Monocytes % 3.1 %; Neutrophils # 10.5 K/mcL (1.6-8.9); Nucleated Red Blood Cells 0.2 /100 WBC (0); Platelet Count 238 K/mcL (140-400); Red Blood Count 2.48 M/mcL (3.82-4.97); Red Cell Distribution Width 18.3 % (11.5-14.5); Segmented Neutrophils % 82.3 %
[2017-07-09 04:55] LABS: INR 1.1; Prothrombin Time 11.5 Seconds (9.4-12.1)
[2017-07-09 05:12] LABS: Ionized Calcium 1.14 mmol/L (1.15-1.35)
[2017-07-09] MEDS: Phenylephrine 50 MG in D5% in Water 250 ML IVC SCH (05:19)
[2017-07-09 05:27] LABS: Alanine Aminotransferase 121 Units/L (0-55); Albumin/Globulin Ratio 0.5 (1.1-2.2); Alkaline Phosphatase 188 Units/L (38-126); Aspartate Amino Transferase 109 Units/L (5-34); BUN/Creatinine Ratio 38 (6-26); Bilirubin,Direct 0.3 mg/dL (0.0-0.5); Bilirubin,Indirect 0.2 mg/dL (0.0-1.2); Bilirubin,Total 0.5 mg/dL (0.2-1.2); Blood Urea Nitrogen 26 mg/dL (7-20); Calcium 7.8 mg/dL (8.6-10.8); Carbon Dioxide 27 mEq/L (19-29); Chloride 105 mEq/L (98-109); Glucose 131 mg/dL (70-99); Magnesium 1.6 mg/dL (1.6-2.6); Osmolality,Calculated 295 (280-300); Phosphorous 2.2 mg/dL (2.3-4.7); Potassium 4.2 mEq/L (3.5-4.5); Sodium 139 mEq/L (136-145); Total Protein 4.6 g/dL (6.0-8.3); eGFR For African Americans > 60 (> 60); eGFR For Non-African Americans > 60 (> 60)
[2017-07-09 05:28] LABS: Albumin 1.6 g/dL (3.5-5.0)
[2017-07-09] MEDS: Insulin LISPRO 300 UNITS/3 ML VIAL SQ SCH ×2 (06:15→11:11)
[2017-07-09] MEDS: Piperacillin/Tazobactam 3.375 GM in D5% in Water (Mini-Bag+) 100 ML IVPB SCH (06:54)
[2017-07-09] MEDS: Aspirin 81 MG TAB.CHEW PO SCH (07:09)
[2017-07-09] MEDS: *HR* Amiodarone 200 MG TABLET PO SCH (07:09)
[2017-07-09] MEDS: Pantoprazole 40 MG VIAL IVPB SCH (07:10)
[2017-07-09] MEDS: Chlorhexidine Rinse 15 ML MOUTHWASH MM SCH (07:10)
[2017-07-09] MEDS: Fluconazole 200 MG/100 ML 200 MG/100 ML BAG IVPB SCH (07:11)
--- NOTE | 2017-07-09 07:52 | Pulmonology Progress Note ---
<KenziePedritoEthan W - Last Filed: 07/09/17 09:56> Date of Encounter: 07/09/17 Objective PUL Vital signs: Last Vital Signs Temp 98.2 F 07/09/17 08:00 Pulse 69 07/09/17 09:00 Resp 17 07/09/17 09:00 BP 94/56 07/09/17 09:00 Pulse Ox 100 07/09/17 09:00 Ventilator Settings Ventilator Settings: Ventilator Settings, Last 8 Hours Ventilator Mode VC+ Ventilator Mode VC+ Ventilator Mode VC+ Ventilator Mode VC+ Ventilator Mode VC+ Ventilator Mode VC+ Ventilator Mode VC+ Ventilator Mode VC+ Ventilator Mode VC+ Ventilator Mode VC+ Ventilator Mode VC+ Ventilator Tidal Volume 350 Setting Ventilator Tidal Volume 350 Setting Ventilator Tidal Volume 350 Setting Ventilator Tidal Volume 350 Setting Ventilator Tidal Volume 350 Setting Ventilator Tidal Volume 350 Setting Ventilator Tidal Volume 350 Setting Ventilator Tidal Volume 350 Setting Ventilator Tidal Volume 350 Setting Ventilator Tidal Volume 350 Setting Ventilator Tidal Volume 350 Setting Ventilator Respiratory Rate 10 Setting Ventilator Respiratory Rate 10 Setting Ventilator Respiratory Rate 10 Setting Ventilator Respiratory Rate 10 Setting Ventilator Respiratory Rate 10 Setting Ventilator Respiratory Rate 10 Setting Ventilator Respiratory Rate 10 Setting Ventilator Respiratory Rate 10 Setting Ventilator Respiratory Rate 10 Setting Ventilator Respiratory Rate 10 Setting Ventilator Respiratory Rate 10 Setting Actual Respiratory Rate 17 Actual Respiratory Rate 17 Actual Respiratory Rate 18 Actual Respiratory Rate 17 Actual Respiratory Rate 23 Actual Respiratory Rate 22 Actual Respiratory Rate 24 Actual Respiratory Rate 28 Actual Respiratory Rate 19 Actual Respiratory Rate 18 Positive End Expiratory 5 Pressure Positive End Expiratory 5 Pressure Positive End Expiratory 5 Pressure Positive End Expiratory 5 Pressure Positive End Expiratory 5 Pressure Positive End Expiratory 5 Pressure Positive End Expiratory 5 Pressure Positive End Expiratory 5 Pressure Positive End Expiratory 5 Pressure Positive End Expiratory 5 Pressure Positive End Expiratory 5 Pressure Peak Inspiratory Airway 10 Pressure Peak Inspiratory Airway 12 Pressure Peak Inspiratory Airway 13 Pressure Peak Inspiratory Airway 11 Pressure Peak Inspiratory Airway 12 Pressure Peak Inspiratory Airway 15 Pressure Peak Inspiratory Airway 17 Pressure Peak Inspiratory Airway 19 Pressure Peak Inspiratory Airway 10 Pressure Peak Inspiratory Airway 10 Pressure Results - Laboratory Findings CBC and BMP: 07/09/17 04:30 07/09/17 04:30 ABG ABG pH 7.43 pH Units (7.32-7.45) 07/09/17 04:13 ABG pCO2 44 mmHg (35-45) 07/09/17 04:13 ABG pO2 95 mmHg (85-104) 07/09/17 04:13 ABG O2 Saturation 98 % (95-98) 07/09/17 04:13 PT/INR, D-dimer PT 11.5 Seconds (9.4-12.1) 07/09/17 04:30 Abnormal lab findings: Abnormal lab results WBC 12.7 K/mcL (4.3-11.1) H 07/09/17 04:30 RBC 2.48 M/mcL (3.82-4.97) L 07/09/17 04:30 Hgb 7.1 g/dL (11.5-15.4) L 07/09/17 04:30 Hct 22.3 % (35.3-44.9) L 07/09/17 04:30 RDW 18.3 % (11.5-14.5) H 07/09/17 04:30 Neutrophils # 10.5 K/mcL (1.6-8.9) H 07/09/17 04:30 Nucleated RBCs/100 WBC 0.2 /100 WBC (0) H 07/09/17 04:30 Hypersegmented Neuts Present (Not Present) A 07/01/17 05:17 Toxic Granulation Present (Not Present) A 07/01/17 05:17 Large Platelets Present (Not Present) A 07/07/17 03:51 Anisocytosis 1+ (Not Present) A 07/07/17 03:51 APTT 51.5 Seconds (26.0-36.0) H 07/02/17 10:07 Heparin Anti-Xa, Unfract 0.05 IU/mL (0.30-0.70) L 07/01/17 19:39 ABG HCO3 29 mEq/L (21-27) H 07/09/17 04:13 ABG Total CO2 31 mEq/L (20-26) H 07/09/17 04:13 ABG Base Excess 4 mEq/L (-2 to 3) H 07/09/17 04:13 VBG pH 7.24 pH Units (7.32-7.42) L 07/01/17 01:51 BUN 26 mg/dL (7-20) H 07/09/17 04:30 BUN/Creatinine Ratio 38 (6-26) H 07/09/17 04:30 Glucose 131 mg/dL (70-99) H 07/09/17 04:30 POC Glucose 143 (58-89) H 07/08/17 23:11 Lactic Acid 2.8 mmol/L (0.5-2.2) H 07/01/17 05:17 Calcium 7.8 mg/dL (8.6-10.8) L 07/09/17 04:30 Ionized Calcium 1.14 mmol/L (1.15-1.35) L 07/09/17 04:30 Phosphorus 2.2 mg/dL (2.3-4.7) L 07/09/17 04:30 AST 109 Units/L (5-34) H 07/09/17 04:30 ALT 121 Units/L (0-55) H 07/09/17 04:30 Alkaline Phosphatase 188 Units/L (38-126) H 07/09/17 04:30 Creatine Kinase 544 Units/L (29-168) H 07/01/17 05:17 Troponin I 1.64 ng/mL (0-0.03) H* 07/02/17 04:25 Serum Total Protein 4.6 g/dL (6.0-8.3) L 07/09/17 04:30 Albumin 1.6 g/dL (3.5-5.0) L 07/09/17 04:30 Albumin/Globulin Ratio 0.5 (1.1-2.2) L 07/09/17 04:30 Salicylates < 5.0 mg/dL (15-30) L 06/29/17 11:15 Acetaminophen < 1.0 mcg/mL (10-30) L 06/29/17 11:15 - Clinical Findings Intake & Output: Intake & Output 07/08/17 07/09/17 07/09/17 23:59 07:59 15:59 Intake Total 1118 / 1118 1002 / 1002 279 / 279 Output Total 1177 / 1177 838 / 838 285 / 285 Balance -59 / -59 164 / 164 -6 / -6 Weight 131.5 kg Consult Discharge Plan - Plan Referrals: NONE,PCP [Primary Care Provider] - - Attending Attestation I examined this patient and my medical decision-making was reviewed with the Resident Physician. I agree with the documented findings, disposition and treatment plan as described except to the extent set forth below. We independently had [id number] contact with the patient Patient seen and examined at bedside Labs, radiology, chart personally reviewed. Management was reviewed during multidisciplinary critical care rounds. Neuropsych: Sedated on Vent. Significnt agiation/vent dyssynchrony with sedation removal. Pulm: Acute Hypoxic Respiratory Failure s/t Cardiogenic Edema and Sepsis. Not a candidate for SBT today because of agitation, pressor requirement and hypoxia. Cont Volume Cycle Ventilation. Cards: Acute stress induced cardiomypoathy s/t vasodilatory shock. Remains on vasopressor cont Phenylephrine for goal MAP 65. FEN-GI:PPI prophylaxis Given cont enteral nutrition. 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 Nephrology following. Cont to Monitor electrolytes and replace per protocol. ID: [id number] UTI leading to Septic Shock. Cont Zosyn. Heme/Onc: DVT prophylaxis Given. Endo: Glucose Monitored Integ/MSK: Skin Care per routine ICU Nursing Protocol to prevent ulcers. Lines: All lines examined without evidence of infection Dispo: Critically Ill. CODE: D/w Family including adult children plan to proceed with compassionate extubation to comfort only measures today. Appreciate Palliative Care consultation with this patient. Change Code status to DNRCC. <Daniel Garcia - Last Filed: 07/09/17 11:36> Date of Encounter: 07/09/17 Time of Encounter: 07:52 Assessment and Plan (1) Goals of care, counseling/discussion Current Visit: No Status: Acute After long discussion with multiple family members the patient's children have ultimately decided to proceed with compassionate extubation. This is planned for 2 PM today. DNR CC form has been signed, we will transition to comfort measures only at 2 PM with family at bedside. Palliative care team has been following and assisting (2) Septic shock Current Visit: Yes Status: Acute Patient remains in septic shock however she did improve as she is only requiring phenylephrine for blood pressure support, which we are continually attempting to wean down, but so far we have been unsuccessful in completely discontinuing it. Urine positive for ESBL Escherichia coli. Levaquin has been discontinued, currently on Zosyn which will be discontinued due to change in goals of care as discussed above.. (3) UTI (urinary tract infection) Current Visit: No Status: Acute As above, due to ESBL Escherichia coli, sensitive to Zosyn. CT scan did reveal a 2 mm stone that may be contributing but unlikely. ureteral stent placed last week by urology. Qualifiers: Urinary tract infection type: acute cystitis Hematuria presence: without hematuria Qualified Code(s): N30.00 - Acute cystitis without hematuria (4) ESRD (end stage renal disease) on dialysis Current Visit: Yes Status: Chronic Patient continues to have minimal urine output. Continue renal replacement therapy until planned withdrawal of care as discussed above. Nephrology is following. (5) Atrial fibrillation with RVR Current Visit: Yes Status: Acute Heart rate has stabilized and is under good control. Patient appears to be in normal sinus rhythm at this time. Heart rate does elevate when the patient is moved. Patient has been transitioned to by mouth amiodarone. We will hold anticoagulation at this time given the patient's critical illness and high risk for bleeding (6) Stress-induced cardiomyopathy Current Visit: Yes Status: Acute Patient was found to have normal coronary arteries with decreased EF of 35% with apical akinesis and severe hypokinesis of the inferior apical wall on heart cath yesterday. Hemodynamics appear to be improving however she remains hypotensive due to septic shock as discussed above. (7) Left ureteral stone Current Visit: Yes Status: Acute Ureteral stent placed last week. Unclear if this is contributing to the patient 's infection. (8) Decubital ulcer Current Visit: Yes Status: Acute Present on arrival. Qualifiers: Pressure ulcer location: sacral region Pressure ulcer stage: stage 2 Qualified Code(s): L89.152 - Pressure ulcer of sacral region, stage 2 (9) Diabetes mellitus Current Visit: Yes Status: Acute Blood sugars have been much improved. Continue sliding-scale insulin. Continue to monitor blood sugars. Continue tube feeds Qualifiers: Diabetes mellitus type: type 2 Diabetes mellitus complication status: without complication Diabetes mellitus intermediate teacher insulin use: unspecified fdc insulin use status Qualified Code(s): E11.9 - Type 2 diabetes mellitus without complications Subjective Principal diagnosis: Septic shock Interval history: Patient seen and examined at bedside. She remains intubated and sedated. She does not appear to be in any acute distress. Objective PUL Vital signs: Last Vital Signs Temp 99.0 F 07/09/17 03:00 Pulse 84 07/09/17 07:10 Resp 18 07/09/17 07:00 BP 89/46 07/09/17 07:00 Pulse Ox 99 07/09/17 07:00 General appearance: comatose ENT: oropharynx dry Effort: normal Auscultation: bilateral: diminished breath sounds Cardiovascular: regular rate and rhythm Gastrointestinal: hypoactive bowel sounds, soft, non-tender Extremities: no cyanosis, no clubbing, edema (1+) unable to assess due to mental status Ventilator Settings Ventilator Settings: Ventilator Settings, Last 8 Hours Ventilator Mode VC+ Ventilator Mode VC+ Ventilator Mode VC+ Ventilator Mode VC+ Ventilator Mode VC+ Ventilator Mode VC+ Ventilator Mode VC+ Ventilator Mode VC+ Ventilator Mode VC+ Ventilator Mode VC+ Ventilator Mode VC+ Ventilator Mode VC+ Ventilator Mode VC+ Ventilator Tidal Volume 350 Setting Ventilator Tidal Volume 350 Setting Ventilator Tidal Volume 350 Setting Ventilator Tidal Volume 350 Setting Ventilator Tidal Volume 350 Setting Ventilator Tidal Volume 350 Setting Ventilator Tidal Volume 350 Setting Ventilator Tidal Volume 350 Setting Ventilator Tidal Volume 350 Setting Ventilator Tidal Volume 350 Setting Ventilator Tidal Volume 350 Setting Ventilator Tidal Volume 350 Setting Ventilator Tidal Volume 350 Setting Ventilator Respiratory Rate 10 Setting Ventilator Respiratory Rate 10 Setting Ventilator Respiratory Rate 10 Setting Ventilator Respiratory Rate 10 Setting Ventilator Respiratory Rate 10 Setting Ventilator Respiratory Rate 10 Setting Ventilator Respiratory Rate 10 Setting Ventilator Respiratory Rate 10 Setting Ventilator Respiratory Rate 10 Setting Ventilator Respiratory Rate 10 Setting Ventilator Respiratory Rate 10 Setting Ventilator Respiratory Rate 10 Setting Ventilator Respiratory Rate 10 Setting Actual Respiratory Rate 18 Actual Respiratory Rate 17 Actual Respiratory Rate 23 Actual Respiratory Rate 22 Actual Respiratory Rate 24 Actual Respiratory Rate 28 Actual Respiratory Rate 19 Actual Respiratory Rate 18 Actual Respiratory Rate 33 Actual Respiratory Rate 30 Actual Respiratory Rate 18 Actual Respiratory Rate 17 Positive End Expiratory 5 Pressure Positive End Expiratory 5 Pressure Positive End Expiratory 5 Pressure Positive End Expiratory 5 Pressure Positive End Expiratory 5 Pressure Positive End Expiratory 5 Pressure Positive End Expiratory 5 Pressure Positive End Expiratory 5 Pressure Positive End Expiratory 5 Pressure Positive End Expiratory 5 Pressure Positive End Expiratory 5 Pressure Positive End Expiratory 5 Pressure Positive End Expiratory 5 Pressure Peak Inspiratory Airway 13 Pressure Peak Inspiratory Airway 11 Pressure Peak Inspiratory Airway 12 Pressure Peak Inspiratory Airway 15 Pressure Peak Inspiratory Airway 17 Pressure Peak Inspiratory Airway 19 Pressure Peak Inspiratory Airway 10 Pressure Peak Inspiratory Airway 10 Pressure Peak Inspiratory Airway 21 Pressure Peak Inspiratory Airway 24 Pressure Peak Inspiratory Airway 11 Pressure Peak Inspiratory Airway 10 Pressure Results - Laboratory Findings CBC and BMP: 07/09/17 04:30 07/09/17 04:30 ABG ABG pH 7.43 pH Units (7.32-7.45) 07/09/17 04:13 ABG pCO2 44 mmHg (35-45) 07/09/17 04:13 ABG pO2 95 mmHg (85-104) 07/09/17 04:13 ABG O2 Saturation 98 % (95-98) 07/09/17 04:13 PT/INR, D-dimer PT 11.5 Seconds (9.4-12.1) 07/09/17 04:30 Abnormal lab findings: Abnormal lab results WBC 12.7 K/mcL (4.3-11.1) H 07/09/17 04:30 RBC 2.48 M/mcL (3.82-4.97) L 07/09/17 04:30 Hgb 7.1 g/dL (11.5-15.4) L 07/09/17 04:30 Hct 22.3 % (35.3-44.9) L 07/09/17 04:30 RDW 18.3 % (11.5-14.5) H 07/09/17 04:30 Neutrophils # 10.5 K/mcL (1.6-8.9) H 07/09/17 04:30 Nucleated RBCs/100 WBC 0.2 /100 WBC (0) H 07/09/17 04:30 Hypersegmented Neuts Present (Not Present) A 07/01/17 05:17 Toxic Granulation Present (Not Present) A 07/01/17 05:17 Large Platelets Present (Not Present) A 07/07/17 03:51 Anisocytosis 1+ (Not Present) A 07/07/17 03:51 APTT 51.5 Seconds (26.0-36.0) H 07/02/17 10:07 Heparin Anti-Xa, Unfract 0.05 IU/mL (0.30-0.70) L 07/01/17 19:39 ABG HCO3 29 mEq/L (21-27) H 07/09/17 04:13 ABG Total CO2 31 mEq/L (20-26) H 07/09/17 04:13 ABG Base Excess 4 mEq/L (-2 to 3) H 07/09/17 04:13 VBG pH 7.24 pH Units (7.32-7.42) L 07/01/17 01:51 BUN 26 mg/dL (7-20) H 07/09/17 04:30 BUN/Creatinine Ratio 38 (6-26) H 07/09/17 04:30 Glucose 131 mg/dL (70-99) H 07/09/17 04:30 POC Glucose 143 (58-89) H 07/08/17 23:11 Lactic Acid 2.8 mmol/L (0.5-2.2) H 07/01/17 05:17 Calcium 7.8 mg/dL (8.6-10.8) L 07/09/17 04:30 Ionized Calcium 1.14 mmol/L (1.15-1.35) L 07/09/17 04:30 Phosphorus 2.2 mg/dL (2.3-4.7) L 07/09/17 04:30 AST 109 Units/L (5-34) H 07/09/17 04:30 ALT 121 Units/L (0-55) H 07/09/17 04:30 Alkaline Phosphatase 188 Units/L (38-126) H 07/09/17 04:30 Creatine Kinase 544 Units/L (29-168) H 07/01/17 05:17 Troponin I 1.64 ng/mL (0-0.03) H* 07/02/17 04:25 Serum Total Protein 4.6 g/dL (6.0-8.3) L 07/09/17 04:30 Albumin 1.6 g/dL (3.5-5.0) L 07/09/17 04:30 Albumin/Globulin Ratio 0.5 (1.1-2.2) L 07/09/17 04:30 Salicylates < 5.0 mg/dL (15-30) L 06/29/17 11:15 Acetaminophen < 1.0 mcg/mL (10-30) L 06/29/17 11:15 - Clinical Findings Intake & Output: Intake & Output 07/08/17 07/08/17 07/09/17 15:59 23:59 07:59 Intake Total 6485.7 / 6485.7 1118 / 1118 1002 / 1002 Output Total 1488 / 1488 1177 / 1177 838 / 838 Balance 4997.7 / 4997.7 -59 / -59 164 / 164 Weight 131.5 kg - VTE Documentation of Mechanical Device: Intermittent pneumatic compression device
[2017-07-09] MEDS: FentaNYL (PF) 1,000 MCG in 0.9 % Sodium Chloride 80 ML IVC SCH ×2 (08:57→15:44)
--- NOTE | 2017-07-09 10:12 | Nephrology Progress Note ---
Date of Encounter: 07/09/17 Time of Encounter: 08:50 - Assessment and Plan (1) ESRD (end stage renal disease) on dialysis Current Visit: Yes Status: Chronic Continue CVVH, until withdrawal of care/extubation planned this afternoon. No net fluid removal, hemodynamically unstable. Subjective Principal diagnosis: Septic shock Interval history: Intubated, sedated on one pressor. CVVH. Plan to extubate/withdrawal of care this afternoon. Family in to "say goodbyes Objective - Vital Signs Vital signs: Vital Signs Temp Pulse Resp BP Pulse Ox 07/09/17 10:00 54 16 104/51 100 07/09/17 09:00 69 17 94/56 100 07/09/17 08:00 98.2 F 73 17 95/56 99 07/09/17 07:10 84 07/09/17 07:00 81 18 89/46 99 07/09/17 06:00 84 17 93/46 99 07/09/17 05:00 86 23 79/43 100 07/09/17 04:57 22 95/47 100 07/09/17 04:00 93 24 85/37 100 07/09/17 03:50 28 86/47 98 07/09/17 03:18 80 07/09/17 03:00 99.0 F 81 19 101/52 99 07/09/17 02:00 75 18 98/47 99 07/09/17 01:16 33 96/64 100 07/09/17 01:00 88 30 93/51 99 07/09/17 00:00 99.0 F 81 18 101/52 99 07/08/17 23:20 89 07/08/17 23:04 17 96/52 99 07/08/17 23:00 99.3 F 89 21 106/53 99 07/08/17 22:14 18 92/47 99 07/08/17 22:00 86 18 92/47 99 07/08/17 21:00 99.9 F H 89 20 95/52 99 07/08/17 20:22 17 86/45 98 07/08/17 20:09 92 24 89/58 99 07/08/17 19:45 90 07/08/17 19:36 18 104/56 99 07/08/17 19:00 70 18 90/46 98 07/08/17 17:00 70 18 104/52 99 07/08/17 16:00 68 16 96/49 100 07/08/17 15:34 17 99 07/08/17 15:00 97.8 F 66 17 96/48 99 07/08/17 14:00 62 16 100/54 100 07/08/17 13:59 16 100 07/08/17 13:00 62 16 97/51 100 07/08/17 12:00 73 15 111/53 99 07/08/17 11:35 10 128/80 100 07/08/17 11:00 97.9 F 86 14 123/80 100 Intake and Output 07/08/17 07/09/17 07/09/17 23:59 07:59 15:59 Intake Total 1118 / 1118 1002 / 1002 441 / 441 Output Total 1177 / 1177 838 / 838 471 / 471 Balance -59 / -59 164 / 164 -30 / -30 Intake: IV Fluids 531 / 531 687 / 687 232 / 232 PrismaSATE BGK 4/2.5 5,000 ML @ 0 / 0 0 / 0 2000 mls/hr CRRT CONT [facility]ENNA Rx#: [id number] PRECEDEX Premix 400 mcg In 100 152 / 152 174 / 174 44 / 44 ml @ 0.2 MCG/KG/HR 6.365 mls/hr IVC .[id number] JENNA Rx#: [id number] FentaNYL (PF) 1,000 MCG In 0.9 61 / 61 58 / 58 32 / 32 % Sodium Chloride 80 ML @ 50 MCG/HR 5 mls/hr IVC CONT [facility]ENNA Rx #:[id number] Versed 50 MG In 0.9 % Sodium 111 / 111 110 / 110 15 / 15 Chloride 90 ML @ 2 MG/HR 4 mls/ hr IVC CONT [facility]ENNA Rx#:[id number] Phenylephrine 50 MG In Dextrose 127 / 127 163 / 163 57 / 57 5% 250 ML @ 180 MCG/MIN 55.08 mls/hr IVC CONT JENNA Rx#: [id number] Diflucan Premix 200 MG/100 ML 63 / 63 37 / 37 200 mg In 100 ml @ 100 mls/hr IVPB DAILY JENNA Rx#:[id number] Zosyn 3.375 GM In Dextrose 5% ( 80 / 80 119 / 119 47 / 47 Minibag+) 100 ML 100 ML @ 25 mls/hr IVPB Q8H [facility] Rx#: [id number] Oral 0 / 0 0 / 0 Tube Feeding 587 / 587 315 / 315 209 / 209 Free Water 0 / 0 0 / 0 Output: Sintia 871 / 871 485 / 485 414 / 414 Rectal Tube 0 / 0 Straight Cath 157 / 157 Catheter 306 / 306 196 / 196 57 / 57 Other: Weight 131.5 kg Blood Glucose* 143 - General Appearance General appearance: Present: well-developed, appears started age, obese, sedated on ventilator, intubated Neck: Present: no JVD Respiratory: Present: clear Cardiology: Present: edema Additional Comments: bradycardic, rates 50"s. increased LE edema Gastrointestinal: Present: hypoactive bowel sounds Integumentary: Present: warm and dry - Lab 07/09/17 04:30 07/09/17 04:30 Most recent lab results ABG pH 7.43 pH Units (7.32-7.45) 07/09/17 04:13 ABG pCO2 44 mmHg (35-45) 07/09/17 04:13 ABG pO2 95 mmHg (85-104) 07/09/17 04:13 ABG HCO3 29 mEq/L (21-27) H 07/09/17 04:13 ABG O2 Saturation 98 % (95-98) 07/09/17 04:13 Calcium 7.8 mg/dL (8.6-10.8) L 07/09/17 04:30 Phosphorus 2.2 mg/dL (2.3-4.7) L 07/09/17 04:30 Magnesium 1.6 mg/dL (1.6-2.6) 07/09/17 04:30 - VTE Documentation of Mechanical Device: Intermittent pneumatic compression device Consult Discharge Plan - Plan Referrals: NONE,PCP [Primary Care Provider] -
[2017-07-09] MEDS ORDERED: *HR* LORazepam 2 MG/ML VIAL IVP PRN ×2 (13:48→14:13)
[2017-07-09] MEDS ORDERED: *HR* Morphine 2 MG/ML SYRINGE IVP PRN (14:21)
--- NOTE | 2017-07-09 14:21 | Palliative Progress Note ---
Date of Encounter: 07/09/17 Time of Encounter: 12:00 - Assessment and plan (1) Generalized pain Current Visit: Yes Status: Acute Assessment and plan: Will continue Fentanyl drip with boluses as needed during and shortly after extubation. Titrate as needed. (2) Anxiety Current Visit: Yes Status: Acute Assessment and plan: Lorazepam PRN as needed. MOnitor and titrate for comfort (3) Goals of care, counseling/discussion Current Visit: Yes Status: Acute Assessment and plan: All family present - 5 children and in agreement for comfort care only and extubation. Sintia will be discontinued as well as pressor support. Family only desires her to be comfortable and pass peacefully. Continue with plans for extubation around 1400. May move to Palliative bed if stable under hospitalist. (4) Acute respiratory failure requiring reintubation Current Visit: Yes Status: Acute (5) Atrial fibrillation with RVR Current Visit: Yes Status: Acute (6) ESRD (end stage renal disease) on dialysis Current Visit: Yes Status: Chronic (7) Septic shock Current Visit: Yes Status: Acute - Time Spent With Patient Total time spent is greater than 50% in coordination of care (as documented) at patient's floor/unit and/or counseling patient: 25 - 35 minutes - Subjective Interval history: Patient remains on vent - family here and plan on compassionate extubation at 1400. - Constitutional Vitals: Abnormal lab results WBC 12.7 K/mcL (4.3-11.1) H 07/09/17 04:30 RBC 2.48 M/mcL (3.82-4.97) L 07/09/17 04:30 Hgb 7.1 g/dL (11.5-15.4) L 07/09/17 04:30 Hct 22.3 % (35.3-44.9) L 07/09/17 04:30 RDW 18.3 % (11.5-14.5) H 07/09/17 04:30 Neutrophils # 10.5 K/mcL (1.6-8.9) H 07/09/17 04:30 Nucleated RBCs/100 WBC 0.2 /100 WBC (0) H 07/09/17 04:30 Hypersegmented Neuts Present (Not Present) A 07/01/17 05:17 Toxic Granulation Present (Not Present) A 07/01/17 05:17 Large Platelets Present (Not Present) A 07/07/17 03:51 Anisocytosis 1+ (Not Present) A 07/07/17 03:51 APTT 51.5 Seconds (26.0-36.0) H 07/02/17 10:07 Heparin Anti-Xa, Unfract 0.05 IU/mL (0.30-0.70) L 07/01/17 19:39 ABG HCO3 29 mEq/L (21-27) H 07/09/17 04:13 ABG Total CO2 31 mEq/L (20-26) H 07/09/17 04:13 ABG Base Excess 4 mEq/L (-2 to 3) H 07/09/17 04:13 VBG pH 7.24 pH Units (7.32-7.42) L 07/01/17 01:51 BUN 26 mg/dL (7-20) H 07/09/17 04:30 BUN/Creatinine Ratio 38 (6-26) H 07/09/17 04:30 Glucose 131 mg/dL (70-99) H 07/09/17 04:30 POC Glucose 143 (58-89) H 07/08/17 23:11 Lactic Acid 2.8 mmol/L (0.5-2.2) H 07/01/17 05:17 Calcium 7.8 mg/dL (8.6-10.8) L 07/09/17 04:30 Ionized Calcium 1.14 mmol/L (1.15-1.35) L 07/09/17 04:30 Phosphorus 2.2 mg/dL (2.3-4.7) L 07/09/17 04:30 AST 109 Units/L (5-34) H 07/09/17 04:30 ALT 121 Units/L (0-55) H 07/09/17 04:30 Alkaline Phosphatase 188 Units/L (38-126) H 07/09/17 04:30 Creatine Kinase 544 Units/L (29-168) H 07/01/17 05:17 Troponin I 1.64 ng/mL (0-0.03) H* 07/02/17 04:25 Serum Total Protein 4.6 g/dL (6.0-8.3) L 07/09/17 04:30 Albumin 1.6 g/dL (3.5-5.0) L 07/09/17 04:30 Albumin/Globulin Ratio 0.5 (1.1-2.2) L 07/09/17 04:30 Salicylates < 5.0 mg/dL (15-30) L 06/29/17 11:15 Acetaminophen < 1.0 mcg/mL (10-30) L 06/29/17 11:15 General appearance: Present: no acute distress - Respiratory Respiratory exam: Present: decreased breath sounds, CTAB - Cardiovascular Cardiovascular exam: Present: bradycardia - GI/Abdominal GI/Abdominal exam: Present: normal bowel sounds, soft Additional comments: rectal tube with scant amount liquid stool - Extremities Exam Additional comments: generalized edema to all extremities - Neurological Exam Additional comments: Minimally responsive - Skin Skin exam: Present: dry, pallor, warm Palliative Quality Palliative Quality: Screen for Code Status: NA (Awaiting family/currently DNRCC/ A), Screen for Goals of Care: NA, Screen for Pain: Yes, If Pain Regimen Started , Initiate Bowel Regimen: NA, Screen for Nausea/Vomitting: NA Code Status: 06/29/17 11:01 Resuscitation Status: Active [RES] Routine Comment: Resuscitation Status: Full Code 07/01/17 12:56 CODE [Resuscitation Status: Active] [RES] Routine Comment: Resuscitation Status: DNR-Comfort Care-Arrest 07/09/17 13:33 DNR [Resuscitation Status: Active] [RES] Routine Comment: Resuscitation Status: DNR-Comfort Care - Labs CBC & Chem 7: 07/09/17 04:30 07/09/17 04:30 Labs: Laboratory Results - last 24 hr 07/08/17 07/08/17 07/09/17 17:10 23:11 04:13 WBC RBC Hgb Hct MCV MCH MCHC RDW Plt Count MPV Immature Gran % Seg Neutrophils % Lymphocytes % Monocytes % Eosinophils % Basophils % Neutrophils # Lymphocytes # Monocytes # Eosinophils # Basophils # Nucleated RBCs/100 WBC PT INR ABG pH 7.43 ABG pCO2 44 ABG pO2 95 ABG HCO3 29 H ABG Total CO2 31 H ABG O2 Saturation 98 ABG Base Excess 4 H Roverto Test N/A Respiration Rate 10 O2 Delivery Device Adult Vent Blood Gas Modality PRVC Inspired O2 50.0 Tidal Volume 350 PEEP 5 Sodium Potassium Chloride Carbon Dioxide BUN Creatinine Est GFR ( Amer) Est GFR (Non-Af Amer) BUN/Creatinine Ratio Glucose POC Glucose 147 H 143 H Calculated Osmolality Calcium Ionized Calcium Phosphorus Magnesium Total Bilirubin Direct Bilirubin Indirect Bilirubin AST ALT Alkaline Phosphatase Serum Total Protein Albumin Globulin Albumin/Globulin Ratio 07/09/17 07/09/17 07/09/17 04:30 04:30 04:30 WBC 12.7 H RBC 2.48 L Hgb 7.1 L Hct 22.3 L MCV 89.9 MCH 28.6 MCHC 31.8 RDW 18.3 H Plt Count 238 MPV 10.1 Immature Gran % 2.2 Seg Neutrophils % 82.3 Lymphocytes % 10.3 Monocytes % 3.1 Eosinophils % 1.9 Basophils % 0.2 Neutrophils # 10.5 H Lymphocytes # 1.3 Monocytes # 0.4 Eosinophils # 0.2 Basophils # 0.0 Nucleated RBCs/100 WBC 0.2 H PT 11.5 INR 1.1 ABG pH ABG pCO2 ABG pO2 ABG HCO3 ABG Total CO2 ABG O2 Saturation ABG Base Excess Roverto Test Respiration Rate O2 Delivery Device Blood Gas Modality Inspired O2 Tidal Volume PEEP Sodium 139 Potassium 4.2 Chloride 105 Carbon Dioxide 27 BUN 26 H Creatinine 0.68 Est GFR ( Amer) > 60 Est GFR (Non-Af Amer) > 60 BUN/Creatinine Ratio 38 H Glucose 131 H POC Glucose Calculated Osmolality 295 Calcium 7.8 L Ionized Calcium 1.14 L Phosphorus 2.2 L Magnesium 1.6 Total Bilirubin 0.5 Direct Bilirubin 0.3 Indirect Bilirubin 0.2 AST 109 H ALT 121 H Alkaline Phosphatase 188 H Serum Total Protein 4.6 L Albumin 1.6 L Globulin 3.0 Albumin/Globulin Ratio 0.5 L - ABG Interpretation ABG results: ABG ABG pH 7.43 pH Units (7.32-7.45) 07/09/17 04:13 ABG pCO2 44 mmHg (35-45) 07/09/17 04:13 ABG pO2 95 mmHg (85-104) 07/09/17 04:13 ABG O2 Saturation 98 % (95-98) 07/09/17 04:13 PT/INR, D-dimer PT 11.5 Seconds (9.4-12.1) 07/09/17 04:30 Consult Discharge Plan - Plan Referrals: NONE,PCP [Primary Care Provider] -
[2017-07-09] MEDS ORDERED: Atropine Sulfate 1% 40 DROP/2 ML BOTTLE SL PRN (14:58)
[2017-07-09] MEDS ORDERED: *HR* HYDROmorphone 2 MG/ML SYRINGE IVP PRN (15:59)
[2017-07-09] MEDS ORDERED: FentaNYL (PF) 1,000 MCG in 0.9 % Sodium Chloride 80 ML IVC SCH (16:42)
[2017-07-09] MEDS: *HR* LORazepam 2 MG/ML VIAL IVP PRN ×3 (16:52→23:28)
[2017-07-09] MEDS: *HR* HYDROmorphone 2 MG/ML SYRINGE IVP PRN ×4 (16:53→23:29)
[2017-07-09] MEDS: Atropine Sulfate 1% 40 DROP/2 ML BOTTLE SL PRN ×2 (20:35→23:28)
[2017-07-10] MEDS: FentaNYL (PF) 3,000 MCG in 0.9 % Sodium Chloride 240 ML IVC SCH ×2 (01:30→22:16)
[2017-07-10] MEDS: *HR* HYDROmorphone 2 MG/ML SYRINGE IVP PRN ×4 (01:49→16:36)
[2017-07-10] MEDS: *HR* LORazepam 2 MG/ML VIAL IVP PRN ×5 (01:49→16:28)
[2017-07-10] MEDS: Atropine Sulfate 1% 40 DROP/2 ML BOTTLE SL PRN ×4 (05:35→16:30)
[2017-07-10] MEDS ORDERED: Glycopyrrolate 0.2 MG/ML VIAL IVP ONE (08:57)
--- NOTE | 2017-07-10 09:00 | Palliative Progress Note ---
Date of Encounter: 07/10/17 Time of Encounter: 08:45 - Assessment and plan (1) Generalized pain Current Visit: Yes Status: Acute Assessment and plan: Continue Fentanyl drip and titrate as needed. (2) Anxiety Current Visit: Yes Status: Acute Assessment and plan: Continue Ativan PRN. Utilized x 4 last 24 hours (3) Goals of care, counseling/discussion Current Visit: Yes Status: Acute Assessment and plan: Patient likely to pass today. D/W Dr. Amaro - do not think she will survive long enough to benefit from GIP transition. (4) Acute respiratory failure requiring reintubation Current Visit: Yes Status: Acute (5) Atrial fibrillation with RVR Current Visit: Yes Status: Acute (6) ESRD (end stage renal disease) on dialysis Current Visit: Yes Status: Chronic (7) Septic shock Current Visit: Yes Status: Acute - Time Spent With Patient Total time spent is greater than 50% in coordination of care (as documented) at patient's floor/unit and/or counseling patient: 25 - 35 minutes - Subjective Interval history: Patient unresponsive - hypotensive with B/P this am 50's/30's. Appears comfortable. + upper airway secretions. Family members at bedside. Her oxygen was increased overnight when saturations were decreased. - Constitutional Vitals: Abnormal lab results WBC 12.7 K/mcL (4.3-11.1) H 07/09/17 04:30 RBC 2.48 M/mcL (3.82-4.97) L 07/09/17 04:30 Hgb 7.1 g/dL (11.5-15.4) L 07/09/17 04:30 Hct 22.3 % (35.3-44.9) L 07/09/17 04:30 RDW 18.3 % (11.5-14.5) H 07/09/17 04:30 Neutrophils # 10.5 K/mcL (1.6-8.9) H 07/09/17 04:30 Nucleated RBCs/100 WBC 0.2 /100 WBC (0) H 07/09/17 04:30 Hypersegmented Neuts Present (Not Present) A 07/01/17 05:17 Toxic Granulation Present (Not Present) A 07/01/17 05:17 Large Platelets Present (Not Present) A 07/07/17 03:51 Anisocytosis 1+ (Not Present) A 07/07/17 03:51 APTT 51.5 Seconds (26.0-36.0) H 07/02/17 10:07 Heparin Anti-Xa, Unfract 0.05 IU/mL (0.30-0.70) L 07/01/17 19:39 ABG HCO3 29 mEq/L (21-27) H 07/09/17 04:13 ABG Total CO2 31 mEq/L (20-26) H 07/09/17 04:13 ABG Base Excess 4 mEq/L (-2 to 3) H 07/09/17 04:13 VBG pH 7.24 pH Units (7.32-7.42) L 07/01/17 01:51 BUN 26 mg/dL (7-20) H 07/09/17 04:30 BUN/Creatinine Ratio 38 (6-26) H 07/09/17 04:30 Glucose 131 mg/dL (70-99) H 07/09/17 04:30 POC Glucose 143 (58-89) H 07/08/17 23:11 Lactic Acid 2.8 mmol/L (0.5-2.2) H 07/01/17 05:17 Calcium 7.8 mg/dL (8.6-10.8) L 07/09/17 04:30 Ionized Calcium 1.14 mmol/L (1.15-1.35) L 07/09/17 04:30 Phosphorus 2.2 mg/dL (2.3-4.7) L 07/09/17 04:30 AST 109 Units/L (5-34) H 07/09/17 04:30 ALT 121 Units/L (0-55) H 07/09/17 04:30 Alkaline Phosphatase 188 Units/L (38-126) H 07/09/17 04:30 Creatine Kinase 544 Units/L (29-168) H 07/01/17 05:17 Troponin I 1.64 ng/mL (0-0.03) H* 07/02/17 04:25 Serum Total Protein 4.6 g/dL (6.0-8.3) L 07/09/17 04:30 Albumin 1.6 g/dL (3.5-5.0) L 07/09/17 04:30 Albumin/Globulin Ratio 0.5 (1.1-2.2) L 07/09/17 04:30 Salicylates < 5.0 mg/dL (15-30) L 06/29/17 11:15 Acetaminophen < 1.0 mcg/mL (10-30) L 06/29/17 11:15 General appearance: Present: no acute distress - Respiratory Additional comments: + upper airway secretions and rhonchi throughout anterior chest - Cardiovascular Cardiovascular exam: Present: tachycardia - GI/Abdominal GI/Abdominal exam: Present: hypoactive bowel sounds, soft - Extremities Exam Additional comments: 4+ edema to bilateral upper and lower extremities - Neurological Exam Additional comments: Unresponsive to tactile and verbal stimuli - Skin Skin exam: Present: dry, pallor, warm Palliative Quality Palliative Quality: Screen for Code Status: NA (Awaiting family/currently DNRCC/ A), Screen for Goals of Care: NA, Screen for Pain: Yes, If Pain Regimen Started , Initiate Bowel Regimen: NA, Screen for Nausea/Vomitting: NA Code Status: 06/29/17 11:01 Resuscitation Status: Active [RES] Routine Comment: Resuscitation Status: Full Code 07/01/17 12:56 CODE [Resuscitation Status: Active] [RES] Routine Comment: Resuscitation Status: DNR-Comfort Care-Arrest 07/09/17 13:33 DNR [Resuscitation Status: Active] [RES] Routine Comment: Resuscitation Status: DNR-Comfort Care - Labs CBC & Chem 7: 07/09/17 04:30 07/09/17 04:30 - ABG Interpretation ABG results: ABG ABG pH 7.43 pH Units (7.32-7.45) 07/09/17 04:13 ABG pCO2 44 mmHg (35-45) 07/09/17 04:13 ABG pO2 95 mmHg (85-104) 07/09/17 04:13 ABG O2 Saturation 98 % (95-98) 07/09/17 04:13 PT/INR, D-dimer PT 11.5 Seconds (9.4-12.1) 07/09/17 04:30 Consult Discharge Plan - Plan Referrals: NONE,PCP [Primary Care Provider] -
--- NOTE | 2017-07-10 09:32 | Nephrology Progress Note ---
Date of Encounter: 07/10/17 Time of Encounter: 09:15 - Assessment and Plan (1) ESRD (end stage renal disease) on dialysis Current Visit: Yes Status: Chronic Withdrawal of care. Appreciated palliative care note. Will sign off. Subjective Principal diagnosis: Septic shock Interval history: Moist, agonal breaths, fentynl gtt. Family in room. Spoke with them. They expressed how difficult this was for them but they were doing okay. Objective - Vital Signs Vital signs: Vital Signs Temp Pulse Resp BP Pulse Ox 07/10/17 00:31 98.7 F 104 15 53/35 97 07/09/17 17:04 98.5 F 30 117/78 83 07/09/17 13:00 63 15 104/52 100 07/09/17 12:00 97.6 F 78 18 96/60 100 07/09/17 11:05 16 91/48 100 07/09/17 11:00 54 16 99/50 100 07/09/17 10:00 54 16 104/51 100 Intake and Output 07/09/17 07/10/17 07/10/17 23:59 07:59 15:59 Intake Total 0 / 0 0 / 0 Balance 0 / 0 0 / 0 Intake: Oral 0 / 0 0 / 0 Other: Meal Dinner Percent of Meal Consumed 0% - General Appearance General appearance: Present: well-developed, well-nourished, appears started age EENT: Present: mucous membranes moist Cardiology: Present: edema, irregular rhythm - Lab 07/09/17 04:30 07/09/17 04:30 Most recent lab results ABG pH 7.43 pH Units (7.32-7.45) 07/09/17 04:13 ABG pCO2 44 mmHg (35-45) 07/09/17 04:13 ABG pO2 95 mmHg (85-104) 07/09/17 04:13 ABG HCO3 29 mEq/L (21-27) H 07/09/17 04:13 ABG O2 Saturation 98 % (95-98) 07/09/17 04:13 Calcium 7.8 mg/dL (8.6-10.8) L 07/09/17 04:30 Phosphorus 2.2 mg/dL (2.3-4.7) L 07/09/17 04:30 Magnesium 1.6 mg/dL (1.6-2.6) 07/09/17 04:30 - VTE Documentation of Mechanical Device: Intermittent pneumatic compression device Consult Discharge Plan - Plan Referrals: NONE,PCP [Primary Care Provider] -
--- NOTE | 2017-07-10 12:36 | Event Note ---
Date of Encounter: 07/10/17 Time of Encounter: 12:34 Seen and evaluated at bedside with family members s/p compassionate extubation 07/09 On comfort care only Exam: Hypotensive tachycardic, unresponsive, pupils are equal, unreactive Chest with diffuse transmitted sounds HS 1, S2, tachycardic Upper and LE edema D/C vital signs Palliative eval and input appreciated. Will continue to follow through the day
--- NOTE | 2017-07-10 17:08 | Internal Med Progress Note ---
Date of Encounter: 07/10/17 Time of Encounter: 12:34 - Subjective Interval history: Seen and evaluated at bedside with family members s/p compassionate extubation 07/09 On comfort care only Exam: Hypotensive tachycardic, unresponsive, pupils are equal, unreactive Chest with diffuse transmitted sounds, agonal breaths HS 1, S2, tachycardic Upper and LE edema A/P Acute hypoxic resp failure secondary to cardiogenic shock. On comfort measures only, continue same. ESBL UTI Septic shock DEAN on CKD Afib DM Decibitus ulcer present on arrival D/C vital signs Palliative eval and input appreciated. Will continue to follow through the day - Constitutional Vitals: Temp Pulse Resp BP Pulse Ox 98.7 F 112 11 58/38 96 07/10/17 10:45 07/10/17 10:45 07/10/17 10:45 07/10/17 14:37 07/10/17 10:45 General appearance: Present: A&O X 0 - Head Head exam: Present: atraumatic, normocephalic - Eye Eye exam: Present: PERRL, conjuntiva pink, sclera anicteric Pupils: Present: PERRL - Neck Neck exam general surgery: Present: supple, trachea midline. Absent: lymphadenopathy - Respiratory Respiratory exam: Present: rhonchi - Cardiovascular Cardiovascular exam: Present: RRR, +S1, +S2, tachycardia. Absent: diastolic murmur, gallop, rubs, systolic murmur Internal Medicine: Result - Labs CBC & Chem 7: 07/09/17 04:30 07/09/17 04:30 - ABG Interpretation ABG results: ABG ABG pH 7.43 pH Units (7.32-7.45) 07/09/17 04:13 ABG pCO2 44 mmHg (35-45) 07/09/17 04:13 ABG pO2 95 mmHg (85-104) 07/09/17 04:13 ABG O2 Saturation 98 % (95-98) 07/09/17 04:13 PT/INR, D-dimer PT 11.5 Seconds (9.4-12.1) 07/09/17 04:30 - VTE Documentation of Mechanical Device: Intermittent pneumatic compression device Consult Discharge Plan - Plan Referrals: NONE,PCP [Primary Care Provider] -
[2017-07-11] MEDS: Atropine Sulfate 1% 40 DROP/2 ML BOTTLE SL PRN ×3 (03:30→18:25)
[2017-07-11] MEDS: *HR* LORazepam 2 MG/ML VIAL IVP PRN ×3 (06:17→18:33)
--- NOTE | 2017-07-11 08:10 | Palliative Progress Note ---
<Dhaval Mac - Last Filed: 07/11/17 08:08> Date of Encounter: 07/11/17 Time of Encounter: 08:08 - Assessment and plan (1) Generalized pain Current Visit: Yes Status: Acute Assessment and plan: Patient comfortable resting well in bed continue fentayl gtt (2) Anxiety Current Visit: Yes Status: Acute Assessment and plan: controlled continue ativan prn used once overnight. (3) Goals of care, counseling/discussion Current Visit: Yes Status: Acute Assessment and plan: DNRCC terminally extubated BP improved compared to yesterday no mottling patient had pooling of secretions cleared by suction continue comfort measures (4) Acute respiratory failure requiring reintubation Current Visit: Yes Status: Acute (5) Septic shock Current Visit: Yes Status: Acute - Time Spent With Patient Total time spent is greater than 50% in coordination of care (as documented) at patient's floor/unit and/or counseling patient: - Subjective Interval history: Patient resting comfortably. Family asked if patient has had any signs of pain, or hair hunger and family stated she has slept well all night. - Constitutional Vitals: Abnormal lab results WBC 12.7 K/mcL (4.3-11.1) H 07/09/17 04:30 RBC 2.48 M/mcL (3.82-4.97) L 07/09/17 04:30 Hgb 7.1 g/dL (11.5-15.4) L 07/09/17 04:30 Hct 22.3 % (35.3-44.9) L 07/09/17 04:30 RDW 18.3 % (11.5-14.5) H 07/09/17 04:30 Neutrophils # 10.5 K/mcL (1.6-8.9) H 07/09/17 04:30 Nucleated RBCs/100 WBC 0.2 /100 WBC (0) H 07/09/17 04:30 Hypersegmented Neuts Present (Not Present) A 07/01/17 05:17 Toxic Granulation Present (Not Present) A 07/01/17 05:17 Large Platelets Present (Not Present) A 07/07/17 03:51 Anisocytosis 1+ (Not Present) A 07/07/17 03:51 APTT 51.5 Seconds (26.0-36.0) H 07/02/17 10:07 Heparin Anti-Xa, Unfract 0.05 IU/mL (0.30-0.70) L 07/01/17 19:39 ABG HCO3 29 mEq/L (21-27) H 07/09/17 04:13 ABG Total CO2 31 mEq/L (20-26) H 07/09/17 04:13 ABG Base Excess 4 mEq/L (-2 to 3) H 07/09/17 04:13 VBG pH 7.24 pH Units (7.32-7.42) L 07/01/17 01:51 BUN 26 mg/dL (7-20) H 07/09/17 04:30 BUN/Creatinine Ratio 38 (6-26) H 07/09/17 04:30 Glucose 131 mg/dL (70-99) H 07/09/17 04:30 POC Glucose 143 (58-89) H 07/08/17 23:11 Lactic Acid 2.8 mmol/L (0.5-2.2) H 07/01/17 05:17 Calcium 7.8 mg/dL (8.6-10.8) L 07/09/17 04:30 Ionized Calcium 1.14 mmol/L (1.15-1.35) L 07/09/17 04:30 Phosphorus 2.2 mg/dL (2.3-4.7) L 07/09/17 04:30 AST 109 Units/L (5-34) H 07/09/17 04:30 ALT 121 Units/L (0-55) H 07/09/17 04:30 Alkaline Phosphatase 188 Units/L (38-126) H 07/09/17 04:30 Creatine Kinase 544 Units/L (29-168) H 07/01/17 05:17 Troponin I 1.64 ng/mL (0-0.03) H* 07/02/17 04:25 Serum Total Protein 4.6 g/dL (6.0-8.3) L 07/09/17 04:30 Albumin 1.6 g/dL (3.5-5.0) L 07/09/17 04:30 Albumin/Globulin Ratio 0.5 (1.1-2.2) L 07/09/17 04:30 Salicylates < 5.0 mg/dL (15-30) L 06/29/17 11:15 Acetaminophen < 1.0 mcg/mL (10-30) L 06/29/17 11:15 - Additional findings Additional findings: General: Patient is sleeping, resting in bed, Heart: Regular rate and rhythm with no murmur Lungs: Clear to auscultation bilaterally anteriorly with grunting Abdomen: Soft nontender, nondistended distant bowel sounds Skin: warm and dry Extremities: 2+ in upper and lower extremeties Vascular: Pedal and radial pulses 2 out of 4 Palliative Quality Palliative Quality: Screen for Code Status: NA (Awaiting family/currently DNRCC/ A), Screen for Goals of Care: NA, Screen for Pain: Yes, If Pain Regimen Started , Initiate Bowel Regimen: NA, Screen for Nausea/Vomitting: NA Code Status: 06/29/17 11:01 Resuscitation Status: Active [RES] Routine Comment: Resuscitation Status: Full Code 07/01/17 12:56 CODE [Resuscitation Status: Active] [RES] Routine Comment: Resuscitation Status: DNR-Comfort Care-Arrest 07/09/17 13:33 DNR [Resuscitation Status: Active] [RES] Routine Comment: Resuscitation Status: DNR-Comfort Care - Labs CBC & Chem 7: 07/09/17 04:30 07/09/17 04:30 - ABG Interpretation ABG results: ABG ABG pH 7.43 pH Units (7.32-7.45) 07/09/17 04:13 ABG pCO2 44 mmHg (35-45) 07/09/17 04:13 ABG pO2 95 mmHg (85-104) 07/09/17 04:13 ABG O2 Saturation 98 % (95-98) 07/09/17 04:13 PT/INR, D-dimer PT 11.5 Seconds (9.4-12.1) 07/09/17 04:30 Consult Discharge Plan - Plan Referrals: NONE,PCP [Primary Care Provider] - <Franco Beck - Last Filed: 07/11/17 09:12> Date of Encounter: 07/11/17 - Time Spent With Patient Total time spent is greater than 50% in coordination of care (as documented) at patient's floor/unit and/or counseling patient: - Constitutional Vitals: Abnormal lab results WBC 12.7 K/mcL (4.3-11.1) H 07/09/17 04:30 RBC 2.48 M/mcL (3.82-4.97) L 07/09/17 04:30 Hgb 7.1 g/dL (11.5-15.4) L 07/09/17 04:30 Hct 22.3 % (35.3-44.9) L 07/09/17 04:30 RDW 18.3 % (11.5-14.5) H 07/09/17 04:30 Neutrophils # 10.5 K/mcL (1.6-8.9) H 07/09/17 04:30 Nucleated RBCs/100 WBC 0.2 /100 WBC (0) H 07/09/17 04:30 Hypersegmented Neuts Present (Not Present) A 07/01/17 05:17 Toxic Granulation Present (Not Present) A 07/01/17 05:17 Large Platelets Present (Not Present) A 07/07/17 03:51 Anisocytosis 1+ (Not Present) A 07/07/17 03:51 APTT 51.5 Seconds (26.0-36.0) H 07/02/17 10:07 Heparin Anti-Xa, Unfract 0.05 IU/mL (0.30-0.70) L 07/01/17 19:39 ABG HCO3 29 mEq/L (21-27) H 07/09/17 04:13 ABG Total CO2 31 mEq/L (20-26) H 07/09/17 04:13 ABG Base Excess 4 mEq/L (-2 to 3) H 07/09/17 04:13 VBG pH 7.24 pH Units (7.32-7.42) L 07/01/17 01:51 BUN 26 mg/dL (7-20) H 07/09/17 04:30 BUN/Creatinine Ratio 38 (6-26) H 07/09/17 04:30 Glucose 131 mg/dL (70-99) H 07/09/17 04:30 POC Glucose 143 (58-89) H 07/08/17 23:11 Lactic Acid 2.8 mmol/L (0.5-2.2) H 07/01/17 05:17 Calcium 7.8 mg/dL (8.6-10.8) L 07/09/17 04:30 Ionized Calcium 1.14 mmol/L (1.15-1.35) L 07/09/17 04:30 Phosphorus 2.2 mg/dL (2.3-4.7) L 07/09/17 04:30 AST 109 Units/L (5-34) H 07/09/17 04:30 ALT 121 Units/L (0-55) H 07/09/17 04:30 Alkaline Phosphatase 188 Units/L (38-126) H 07/09/17 04:30 Creatine Kinase 544 Units/L (29-168) H 07/01/17 05:17 Troponin I 1.64 ng/mL (0-0.03) H* 07/02/17 04:25 Serum Total Protein 4.6 g/dL (6.0-8.3) L 07/09/17 04:30 Albumin 1.6 g/dL (3.5-5.0) L 07/09/17 04:30 Albumin/Globulin Ratio 0.5 (1.1-2.2) L 07/09/17 04:30 Salicylates < 5.0 mg/dL (15-30) L 06/29/17 11:15 Acetaminophen < 1.0 mcg/mL (10-30) L 06/29/17 11:15 - Attending Attestation I examined this patient and my medical decision-making was reviewed with the Resident Physician. I agree with the documented findings, disposition and treatment plan as described except to the extent set forth below. Palliative Quality Code Status: 06/29/17 11:01 Resuscitation Status: Active [RES] Routine Comment: Resuscitation Status: Full Code 07/01/17 12:56 CODE [Resuscitation Status: Active] [RES] Routine Comment: Resuscitation Status: DNR-Comfort Care-Arrest 07/09/17 13:33 DNR [Resuscitation Status: Active] [RES] Routine Comment: Resuscitation Status: DNR-Comfort Care - Labs CBC & Chem 7: 07/09/17 04:30 07/09/17 04:30 - ABG Interpretation ABG results: ABG ABG pH 7.43 pH Units (7.32-7.45) 07/09/17 04:13 ABG pCO2 44 mmHg (35-45) 07/09/17 04:13 ABG pO2 95 mmHg (85-104) 07/09/17 04:13 ABG O2 Saturation 98 % (95-98) 07/09/17 04:13 PT/INR, D-dimer PT 11.5 Seconds (9.4-12.1) 07/09/17 04:30
--- NOTE | 2017-07-11 10:52 | Internal Med Progress Note ---
Date of Encounter: 07/11/17 Time of Encounter: 10:51 - Subjective Interval history: Seen and evaluated at bedside with family members s/p compassionate extubation 07/09 On comfort care only Exam: BP improved, febrile, tachycardic, unresponsive, pupils are equal, unreactive Chest with diffuse transmitted sounds, agonal breaths HS 1, S2, tachycardic Upper and LE edema A/P Acute hypoxic resp failure secondary to cardiogenic shock. On comfort measures only, continue same. ESBL UTI Septic shock DEAN on CKD Afib DM Decibitus ulcer present on arrival D/C vital signs Palliative eval and input appreciated. Will continue to follow - Constitutional Vitals: Temp Pulse Resp BP Pulse Ox 100.7 F H 111 15 93/62 100 07/11/17 07:24 07/11/17 07:24 07/11/17 07:24 07/11/17 07:24 07/11/17 07:24 General appearance: Present: A&O X 0 Internal Medicine: Result - Labs CBC & Chem 7: 07/09/17 04:30 07/09/17 04:30 - ABG Interpretation ABG results: ABG ABG pH 7.43 pH Units (7.32-7.45) 07/09/17 04:13 ABG pCO2 44 mmHg (35-45) 07/09/17 04:13 ABG pO2 95 mmHg (85-104) 07/09/17 04:13 ABG O2 Saturation 98 % (95-98) 07/09/17 04:13 PT/INR, D-dimer PT 11.5 Seconds (9.4-12.1) 07/09/17 04:30 - VTE Documentation of Mechanical Device: Intermittent pneumatic compression device Consult Discharge Plan - Plan Referrals: NONE,PCP [Primary Care Provider] -
[2017-07-11] MEDS ORDERED: Acetaminophen 650 MG RECTAL SUPP RC PRN (10:53)
[2017-07-11] MEDS: FentaNYL (PF) 3,000 MCG in 0.9 % Sodium Chloride 240 ML IVC SCH (22:44)
[2017-07-12] MEDS: *HR* LORazepam 2 MG/ML VIAL IVP PRN ×3 (01:32→14:23)
[2017-07-12] MEDS: *HR* HYDROmorphone 2 MG/ML SYRINGE IVP PRN ×2 (06:31→16:53)
--- NOTE | 2017-07-12 06:48 | Palliative Progress Note ---
<Dhaval Mac - Last Filed: 07/12/17 06:57> Date of Encounter: 07/12/17 Time of Encounter: 06:46 - Assessment and plan (1) Generalized pain Current Visit: Yes Status: Acute Assessment and plan: Patient comfortable resting well in bed continue fentayl gtt continue prn dilauded (2) Anxiety Current Visit: Yes Status: Acute Assessment and plan: controlled continue ativan prn used once overnight. (3) Goals of care, counseling/discussion Current Visit: Yes Status: Acute Assessment and plan: DNRCC terminally extubated BP stable no mottling continue comfort measures (4) Acute respiratory failure requiring reintubation Current Visit: Yes Status: Acute Assessment and plan: patient has deep suctioning to help with choking from secretions family was interested in leaving permanent suction line placed as patient requires suctioning every 2-3 hours however this would increase stimulation and cause more secretions continue atropine will add scopolamine patch. (5) Septic shock Current Visit: Yes Status: Acute - Time Spent With Patient Total time spent is greater than 50% in coordination of care (as documented) at patient's floor/unit and/or counseling patient: - Subjective Interval history: Patient resting comfortably, has grunts with each respiration. Family was concerned about this but was explained this is not abnormal. Patient has regularly deep suctioning which relieves her of congestion. - Constitutional Vitals: Abnormal lab results WBC 12.7 K/mcL (4.3-11.1) H 07/09/17 04:30 RBC 2.48 M/mcL (3.82-4.97) L 07/09/17 04:30 Hgb 7.1 g/dL (11.5-15.4) L 07/09/17 04:30 Hct 22.3 % (35.3-44.9) L 07/09/17 04:30 RDW 18.3 % (11.5-14.5) H 07/09/17 04:30 Neutrophils # 10.5 K/mcL (1.6-8.9) H 07/09/17 04:30 Nucleated RBCs/100 WBC 0.2 /100 WBC (0) H 07/09/17 04:30 Hypersegmented Neuts Present (Not Present) A 07/01/17 05:17 Toxic Granulation Present (Not Present) A 07/01/17 05:17 Large Platelets Present (Not Present) A 07/07/17 03:51 Anisocytosis 1+ (Not Present) A 07/07/17 03:51 APTT 51.5 Seconds (26.0-36.0) H 07/02/17 10:07 Heparin Anti-Xa, Unfract 0.05 IU/mL (0.30-0.70) L 07/01/17 19:39 ABG HCO3 29 mEq/L (21-27) H 07/09/17 04:13 ABG Total CO2 31 mEq/L (20-26) H 07/09/17 04:13 ABG Base Excess 4 mEq/L (-2 to 3) H 07/09/17 04:13 VBG pH 7.24 pH Units (7.32-7.42) L 07/01/17 01:51 BUN 26 mg/dL (7-20) H 07/09/17 04:30 BUN/Creatinine Ratio 38 (6-26) H 07/09/17 04:30 Glucose 131 mg/dL (70-99) H 07/09/17 04:30 POC Glucose 143 (58-89) H 07/08/17 23:11 Lactic Acid 2.8 mmol/L (0.5-2.2) H 07/01/17 05:17 Calcium 7.8 mg/dL (8.6-10.8) L 07/09/17 04:30 Ionized Calcium 1.14 mmol/L (1.15-1.35) L 07/09/17 04:30 Phosphorus 2.2 mg/dL (2.3-4.7) L 07/09/17 04:30 AST 109 Units/L (5-34) H 07/09/17 04:30 ALT 121 Units/L (0-55) H 07/09/17 04:30 Alkaline Phosphatase 188 Units/L (38-126) H 07/09/17 04:30 Creatine Kinase 544 Units/L (29-168) H 07/01/17 05:17 Troponin I 1.64 ng/mL (0-0.03) H* 07/02/17 04:25 Serum Total Protein 4.6 g/dL (6.0-8.3) L 07/09/17 04:30 Albumin 1.6 g/dL (3.5-5.0) L 07/09/17 04:30 Albumin/Globulin Ratio 0.5 (1.1-2.2) L 07/09/17 04:30 Salicylates < 5.0 mg/dL (15-30) L 06/29/17 11:15 Acetaminophen < 1.0 mcg/mL (10-30) L 06/29/17 11:15 - Additional findings Additional findings: General: Patient is sleeping, resting in bed, Heart: Regular rate and rhythm with no murmur Lungs: Clear to auscultation bilaterally anteriorly with grunting Abdomen: Soft nontender, nondistended distant bowel sounds Skin: warm and dry Extremities: 2+ in upper and lower extremeties Vascular: Pedal and radial pulses 2 out of 4 Palliative Quality Palliative Quality: Screen for Code Status: NA (Awaiting family/currently DNRCC/ A), Screen for Goals of Care: NA, Screen for Pain: Yes, If Pain Regimen Started , Initiate Bowel Regimen: NA, Screen for Nausea/Vomitting: NA Code Status: 06/29/17 11:01 Resuscitation Status: Active [RES] Routine Comment: Resuscitation Status: Full Code 07/01/17 12:56 CODE [Resuscitation Status: Active] [RES] Routine Comment: Resuscitation Status: DNR-Comfort Care-Arrest 07/09/17 13:33 DNR [Resuscitation Status: Active] [RES] Routine Comment: Resuscitation Status: DNR-Comfort Care - Labs CBC & Chem 7: 07/09/17 04:30 07/09/17 04:30 - ABG Interpretation ABG results: ABG ABG pH 7.43 pH Units (7.32-7.45) 07/09/17 04:13 ABG pCO2 44 mmHg (35-45) 07/09/17 04:13 ABG pO2 95 mmHg (85-104) 07/09/17 04:13 ABG O2 Saturation 98 % (95-98) 07/09/17 04:13 PT/INR, D-dimer PT 11.5 Seconds (9.4-12.1) 07/09/17 04:30 Consult Discharge Plan - Plan Referrals: NONE,PCP [Primary Care Provider] - <Franco Beck - Last Filed: 07/12/17 07:13> Date of Encounter: 07/12/17 - Time Spent With Patient Total time spent is greater than 50% in coordination of care (as documented) at patient's floor/unit and/or counseling patient: - Constitutional Vitals: Abnormal lab results WBC 12.7 K/mcL (4.3-11.1) H 07/09/17 04:30 RBC 2.48 M/mcL (3.82-4.97) L 07/09/17 04:30 Hgb 7.1 g/dL (11.5-15.4) L 07/09/17 04:30 Hct 22.3 % (35.3-44.9) L 07/09/17 04:30 RDW 18.3 % (11.5-14.5) H 07/09/17 04:30 Neutrophils # 10.5 K/mcL (1.6-8.9) H 07/09/17 04:30 Nucleated RBCs/100 WBC 0.2 /100 WBC (0) H 07/09/17 04:30 Hypersegmented Neuts Present (Not Present) A 07/01/17 05:17 Toxic Granulation Present (Not Present) A 07/01/17 05:17 Large Platelets Present (Not Present) A 07/07/17 03:51 Anisocytosis 1+ (Not Present) A 07/07/17 03:51 APTT 51.5 Seconds (26.0-36.0) H 07/02/17 10:07 Heparin Anti-Xa, Unfract 0.05 IU/mL (0.30-0.70) L 07/01/17 19:39 ABG HCO3 29 mEq/L (21-27) H 07/09/17 04:13 ABG Total CO2 31 mEq/L (20-26) H 07/09/17 04:13 ABG Base Excess 4 mEq/L (-2 to 3) H 07/09/17 04:13 VBG pH 7.24 pH Units (7.32-7.42) L 07/01/17 01:51 BUN 26 mg/dL (7-20) H 07/09/17 04:30 BUN/Creatinine Ratio 38 (6-26) H 07/09/17 04:30 Glucose 131 mg/dL (70-99) H 07/09/17 04:30 POC Glucose 143 (58-89) H 07/08/17 23:11 Lactic Acid 2.8 mmol/L (0.5-2.2) H 07/01/17 05:17 Calcium 7.8 mg/dL (8.6-10.8) L 07/09/17 04:30 Ionized Calcium 1.14 mmol/L (1.15-1.35) L 07/09/17 04:30 Phosphorus 2.2 mg/dL (2.3-4.7) L 07/09/17 04:30 AST 109 Units/L (5-34) H 07/09/17 04:30 ALT 121 Units/L (0-55) H 07/09/17 04:30 Alkaline Phosphatase 188 Units/L (38-126) H 07/09/17 04:30 Creatine Kinase 544 Units/L (29-168) H 07/01/17 05:17 Troponin I 1.64 ng/mL (0-0.03) H* 07/02/17 04:25 Serum Total Protein 4.6 g/dL (6.0-8.3) L 07/09/17 04:30 Albumin 1.6 g/dL (3.5-5.0) L 07/09/17 04:30 Albumin/Globulin Ratio 0.5 (1.1-2.2) L 07/09/17 04:30 Salicylates < 5.0 mg/dL (15-30) L 06/29/17 11:15 Acetaminophen < 1.0 mcg/mL (10-30) L 06/29/17 11:15 - Attending Attestation I examined this patient and my medical decision-making was reviewed with the Resident Physician. I agree with the documented findings, disposition and treatment plan as described except to the extent set forth below. Palliative Quality Code Status: 06/29/17 11:01 Resuscitation Status: Active [RES] Routine Comment: Resuscitation Status: Full Code 07/01/17 12:56 CODE [Resuscitation Status: Active] [RES] Routine Comment: Resuscitation Status: DNR-Comfort Care-Arrest 07/09/17 13:33 DNR [Resuscitation Status: Active] [RES] Routine Comment: Resuscitation Status: DNR-Comfort Care - Labs CBC & Chem 7: 07/09/17 04:30 07/09/17 04:30 - ABG Interpretation ABG results: ABG ABG pH 7.43 pH Units (7.32-7.45) 07/09/17 04:13 ABG pCO2 44 mmHg (35-45) 07/09/17 04:13 ABG pO2 95 mmHg (85-104) 07/09/17 04:13 ABG O2 Saturation 98 % (95-98) 07/09/17 04:13 PT/INR, D-dimer PT 11.5 Seconds (9.4-12.1) 07/09/17 04:30
[2017-07-12] MEDS ORDERED: Scopolamine Patch 1.5 MG PATCH.TD72 TD SCH (07:00)
--- NOTE | 2017-07-12 10:10 | Internal Med Progress Note ---
Date of Encounter: 07/12/17 Time of Encounter: 10:10 - Subjective Interval history: Seen and evaluated at bedside with family members s/p compassionate extubation 07/09 On comfort care only Exam: BP improved, afebrile, tachycardic, unresponsive, pupils are equal, unreactive Chest is clear to auscultation and patient looks more comfortable HS 1, S2, tachycardic Upper and LE edema A/P Acute hypoxic resp failure secondary to cardiogenic shock. On comfort measures only, continue same. ESBL UTI Septic shock DEAN on CKD Afib DM Decibitus ulcer present on arrival D/C vital signs Palliative eval and input appreciated. Will continue to follow - Constitutional Vitals: Temp Pulse Resp BP Pulse Ox 98.3 F 90 11 65/47 99 07/12/17 08:17 07/12/17 08:17 07/12/17 08:17 07/12/17 08:17 07/12/17 08:17 General appearance: Present: A&O X 0 Internal Medicine: Result - Labs CBC & Chem 7: 07/09/17 04:30 07/09/17 04:30 - ABG Interpretation ABG results: ABG ABG pH 7.43 pH Units (7.32-7.45) 07/09/17 04:13 ABG pCO2 44 mmHg (35-45) 07/09/17 04:13 ABG pO2 95 mmHg (85-104) 07/09/17 04:13 ABG O2 Saturation 98 % (95-98) 07/09/17 04:13 PT/INR, D-dimer PT 11.5 Seconds (9.4-12.1) 07/09/17 04:30 - VTE Documentation of Mechanical Device: Intermittent pneumatic compression device Consult Discharge Plan - Plan Referrals: NONE,PCP [Primary Care Provider] -
[2017-07-12 15:45] VITALS: BP 71/47
[2017-07-12] MEDS: Atropine Sulfate 1% 40 DROP/2 ML BOTTLE SL PRN (22:52)
[2017-07-12] MEDS: FentaNYL (PF) 3,000 MCG in 0.9 % Sodium Chloride 240 ML IVC SCH (22:54)
[2017-07-13] MEDS: *HR* LORazepam 2 MG/ML VIAL IVP PRN ×3 (06:35→17:15)
[2017-07-13] MEDS: *HR* HYDROmorphone 2 MG/ML SYRINGE IVP PRN ×2 (06:35→11:37)
--- NOTE | 2017-07-13 09:30 | Palliative Progress Note ---
Date of Encounter: 07/13/17 Time of Encounter: 08:45 - Assessment and plan (1) Generalized pain Current Visit: Yes Status: Acute Assessment and plan: Continue current IV Fentanyl. Hydromorphone IVP PRN. Utilized x4 last 24 hours. (2) Anxiety Current Visit: Yes Status: Acute Assessment and plan: Continue Lorazepam PRN. Has not required (3) Goals of care, counseling/discussion Current Visit: Yes Status: Acute Assessment and plan: Family unable to be here until this evening. They are ok with transition to In hospice - however, cannot meet hospice until 18-1900 this evening. Spoke with [facility] and they will arrange for nurse to come out later. Discharge of pt needs delayed until later today. Will D/W Dr. Amaro. (4) Acute respiratory failure requiring reintubation Current Visit: Yes Status: Acute (5) Atrial fibrillation with RVR Current Visit: Yes Status: Acute (6) ESRD (end stage renal disease) on dialysis Current Visit: Yes Status: Chronic (7) Septic shock Current Visit: Yes Status: Acute - Time Spent With Patient Total time spent is greater than 50% in coordination of care (as documented) at patient's floor/unit and/or counseling patient: 25 - 35 minutes - Subjective Interval history: Patient unresponsive - Appears very comfortable. Heart rate in 150's. Less upper airway congestion. Daughter at bedside. - Constitutional Vitals: Abnormal lab results WBC 12.7 K/mcL (4.3-11.1) H 07/09/17 04:30 RBC 2.48 M/mcL (3.82-4.97) L 07/09/17 04:30 Hgb 7.1 g/dL (11.5-15.4) L 07/09/17 04:30 Hct 22.3 % (35.3-44.9) L 07/09/17 04:30 RDW 18.3 % (11.5-14.5) H 07/09/17 04:30 Neutrophils # 10.5 K/mcL (1.6-8.9) H 07/09/17 04:30 Nucleated RBCs/100 WBC 0.2 /100 WBC (0) H 07/09/17 04:30 Hypersegmented Neuts Present (Not Present) A 07/01/17 05:17 Toxic Granulation Present (Not Present) A 07/01/17 05:17 Large Platelets Present (Not Present) A 07/07/17 03:51 Anisocytosis 1+ (Not Present) A 07/07/17 03:51 APTT 51.5 Seconds (26.0-36.0) H 07/02/17 10:07 Heparin Anti-Xa, Unfract 0.05 IU/mL (0.30-0.70) L 07/01/17 19:39 ABG HCO3 29 mEq/L (21-27) H 07/09/17 04:13 ABG Total CO2 31 mEq/L (20-26) H 07/09/17 04:13 ABG Base Excess 4 mEq/L (-2 to 3) H 07/09/17 04:13 VBG pH 7.24 pH Units (7.32-7.42) L 07/01/17 01:51 BUN 26 mg/dL (7-20) H 07/09/17 04:30 BUN/Creatinine Ratio 38 (6-26) H 07/09/17 04:30 Glucose 131 mg/dL (70-99) H 07/09/17 04:30 POC Glucose 143 (58-89) H 07/08/17 23:11 Lactic Acid 2.8 mmol/L (0.5-2.2) H 07/01/17 05:17 Calcium 7.8 mg/dL (8.6-10.8) L 07/09/17 04:30 Ionized Calcium 1.14 mmol/L (1.15-1.35) L 07/09/17 04:30 Phosphorus 2.2 mg/dL (2.3-4.7) L 07/09/17 04:30 AST 109 Units/L (5-34) H 07/09/17 04:30 ALT 121 Units/L (0-55) H 07/09/17 04:30 Alkaline Phosphatase 188 Units/L (38-126) H 07/09/17 04:30 Creatine Kinase 544 Units/L (29-168) H 07/01/17 05:17 Troponin I 1.64 ng/mL (0-0.03) H* 07/02/17 04:25 Serum Total Protein 4.6 g/dL (6.0-8.3) L 07/09/17 04:30 Albumin 1.6 g/dL (3.5-5.0) L 07/09/17 04:30 Albumin/Globulin Ratio 0.5 (1.1-2.2) L 07/09/17 04:30 Salicylates < 5.0 mg/dL (15-30) L 06/29/17 11:15 Acetaminophen < 1.0 mcg/mL (10-30) L 06/29/17 11:15 General appearance: Present: no acute distress - Respiratory Respiratory exam: Present: decreased breath sounds - Cardiovascular Cardiovascular exam: Present: irregular rhythm, tachycardia - GI/Abdominal GI/Abdominal exam: Present: normal bowel sounds, soft Additional comments: rectal tube in place. Small amount liquid brown stool - Extremities Exam Additional comments: 4+ edema bilateral all extremities - Neurological Exam Additional comments: Unresponsive - Skin Skin exam: Present: dry, pallor, warm Palliative Quality Palliative Quality: Screen for Code Status: NA (Awaiting family/currently DNRCC/ A), Screen for Goals of Care: NA, Screen for Pain: Yes, If Pain Regimen Started , Initiate Bowel Regimen: NA, Screen for Nausea/Vomitting: NA Code Status: 06/29/17 11:01 Resuscitation Status: Active [RES] Routine Comment: Resuscitation Status: Full Code 07/01/17 12:56 CODE [Resuscitation Status: Active] [RES] Routine Comment: Resuscitation Status: DNR-Comfort Care-Arrest 07/09/17 13:33 DNR [Resuscitation Status: Active] [RES] Routine Comment: Resuscitation Status: DNR-Comfort Care - Labs CBC & Chem 7: 07/09/17 04:30 07/09/17 04:30 - Impressions Impressions KUB X-Ray 07/02/17 14:57 IMPRESSION: Left ureteral stent catheter placement. D/ / 07/02/2017 16:22:41 Jose Pacheco MD / [facility] Interpreting Provider: Jose Pacheco MD - ABG Interpretation ABG results: ABG ABG pH 7.43 pH Units (7.32-7.45) 07/09/17 04:13 ABG pCO2 44 mmHg (35-45) 07/09/17 04:13 ABG pO2 95 mmHg (85-104) 07/09/17 04:13 ABG O2 Saturation 98 % (95-98) 07/09/17 04:13 PT/INR, D-dimer PT 11.5 Seconds (9.4-12.1) 07/09/17 04:30 Consult Discharge Plan - Plan Referrals: NONE,PCP [Primary Care Provider] -
--- NOTE | 2017-07-13 15:55 | Discharge Summary ---
Date of Encounter: 07/13/17 Time of Encounter: 15:52 - Discharge Medications Home Medications: Alendronate Sodium [Fosamax] 70 mg PO QWEEK 02/13/16 [History] Calcium Carb/Vitamin D3/Vit K1 [Calcium + D Soft Chewable Tab] 1 mg PO DAILY 04/22 [History] Amitriptyline [Elavil] 25 mg PO DAILY 04/28/17 [History] DULoxetine [Cymbalta] 30 mg PO BID 04/28/17 [History] HYDROcodone/Acet 7.5/325 mg [[place] 7.5-325 mg] 1 tab PO Q6H 04/28/17 [History] Trazodone HCl 100 mg PO BID 04/28/17 [History] Metoprolol XL (24 HR) Succ [Toprol Xl] 12.5 mg PO BID #60 05/12/17 [Rx] Bisacodyl [Dulcolax] 10 mg RC DAILY PRN 06/29/17 [History] Dicyclomine [Bentyl] 10 mg PO QID 06/29/17 [History] Docusate Sodium [Dok] 100 mg PO BID 06/29/17 [History] Gabapentin [Neurontin] 100 mg PO BID 06/29/17 [History] Linaclotide [Linzess] 145 mcg PO DAILY 06/29/17 [History] Lubiprostone [Amitiza] 24 mcg PO BID 06/29/17 [History] Mirtazapine [Remeron] 15 mg PO HS 06/29/17 [History] Ondansetron HCl [Zofran] 4 mg PO Q6H PRN 06/29/17 [History] Oxybutynin [Ditropan] 5 mg PO DAILY 06/29/17 [History] Ranitidine HCl [Zantac 75] 75 mg PO BID 06/29/17 [History] Renal Vitamin [Renal Caps Softgel] 1 mg PO DAILY 06/29/17 [History] Sertraline [Zoloft] 50 mg PO DAILY 06/29/17 [History] Warfarin [Coumadin] 1.5 mg PO Q48H 06/29/17 [History] Warfarin [Coumadin] 2 mg PO Q48H 06/29/17 [History] Allergies/Adverse Reactions: 3 Allergy/AdvReac Type Severity Reaction Status Date / Time ibuprofen [From Motrin] AdvReac Nausea Verified 02/13/16 10:46 Date of admission: 06/29/17 10:08 Primary care physician: PCP NONE Consults: 06/30/17 09:10 Consult to Cardiology [CONS] Routine Comment: Consulting Provider: Cardiology Tameka Reason for Consult: Elevated troponin Call Completed: Yes 07/07/17 08:31 Consult to Palliative Care [CONS] Routine Comment: Consulting Provider: Palliative Care Tameka Reason for Consult: Goals of care Call Completed: Yes - Patient Status Disposition: Hospice - Medical Facility Condition: Critical Functional capacity at discharge: bed bound Overall status at discharge: patient is not back to baseline - Discharge Instructions Follow Up With: NONE,PCP [Primary Care Provider] - Interval History: See below Hospital course: Ms. Wei is a 72 year old female with Acute hypoxic resp failure secondary to cardiogenic shock, ESBL UTI, Septic shock, ESRD on HD, Afib, DM, Decibitus ulcer present on arrival Seen and evaluated at bedside with family members s/p compassionate extubation 07/09 On comfort care only Exam: BP improved, afebrile, tachycardic, unresponsive, pupils are equal, unreactive Chest is clear to auscultation and patient looks more comfortable HS 1, S2, tachycardic Upper and LE edema A/P Discharged to in-patient hospice as agreed with palliative care team - Time Spent with Patient Total time spent providing and/or coordinating discharge services: - Constitutional Vitals: Temp Pulse Resp BP Pulse Ox 98.1 F 147 11 71/47 97 07/13/17 07:48 07/13/17 07:48 07/12/17 15:35 07/12/17 15:35 07/13/17 07:48 General appearance: Present: A&O X 0 - VTE Documentation of Mechanical Device: Intermittent pneumatic compression device
== END 2017-07-13 18:40 | disposition hospice, inpatient (51) | DRG 720 ==
LOC: ICNU 10:08 → SUATTDRO 10:08 → 2ANU 07-09 16:42
PROVIDERS: ADMIT Internal Medicine Pulmonary Disease; ATTEND Internal Medicine

== ENCOUNTER 2017-07-13 14:44 | Inpatient (IN) ==
[2017-07-13] MEDS ORDERED: FentaNYL (PF) 1,000 MCG in 0.9 % Sodium Chloride 80 ML IVC SCH (15:15)
--- NOTE | 2017-07-13 15:58 | Palliative - Consult Note ---
Date of Encounter: 07/13/17 Time of Encounter: 16:00 - Assessment and Plan (1) Generalized pain Status: Acute Assessment and plan: Patient has been maintained on Fentanyl drip since extubation last . Utilizing Hydromorphone IVP for breakthrough. She appears very comfortable at 150mcg/hr. Will continue today. May discuss transitioning to Fentanyl patch at some point. Monitor (2) Copious oral secretions Status: Acute Assessment and plan: Continue scopolamine patch from admission and atropine drops PRN. MOnitor (3) Anxiety Status: Acute Assessment and plan: IV Lorazepam if needed. Monitor and adjust as needed. (4) ESRD (end stage renal disease) on dialysis Status: Chronic (5) Septic shock Status: Acute Palliative-CN HPI - Data of Consult Consult date: 07/13/17 Requesting Physician: Franco Beck MD - Consult Narrative History of present illness: Ms. Wei is a 72 year old female who was originally admitted with septic shock and found unresponsive at the nursing facility. She has long medical history including: arthrits, COPD, GERD, HTN, osteoporosis, CHF. She was intubated and cared for in ICU. She was unable to wean off ventilator, and still required pressor medications after a week-10 days of hospitalization. Palliative was consulted and meetings held with family. She has 5 children and no power of medical doctor, so discussion took a few days time to sort out goals of care with her family. Eventually, it was decided to compassionately extubate and transition to comfort care. All aggressive, life prolonging measures were discontinued. She required titration of iv Fentanyl drip and Dilaudid pushes for comfort and control of dyspnea. She stabilized somewhat over the weekend, however, remains unresponsive. Patient today with irregular tachycardia. She was discharged from hospital today and admitted as general inpt hospice for intense symptom management. CC: Franco Beck MD Past Med Surg Social Fam HX - Past Medical History Medical history: arthritis, COPD, GERD, hypertension, osteoporosis Psychiatric history: ADHD, depression - Past Surgical History Surgical History: other - Social History Smoking Status: Never smoker Smokeless Tobacco Status: No Alcohol use: none Drug use: none - Family History Mother Living Status: Hx Family Cardiac Disorders: Yes Hx Family Endocrine Disorder: Yes (Diabetes) Medications and Allergies Alendronate Sodium [Fosamax] 70 mg PO QWEEK 02/13/16 [History] Calcium Carb/Vitamin D3/Vit K1 [Calcium + D Soft Chewable Tab] 1 mg PO DAILY 04/22 [History] Amitriptyline [Elavil] 25 mg PO DAILY 04/28/17 [History] DULoxetine [Cymbalta] 30 mg PO BID 04/28/17 [History] HYDROcodone/Acet 7.5/325 mg [[place] 7.5-325 mg] 1 tab PO Q6H 04/28/17 [History] Trazodone HCl 100 mg PO BID 04/28/17 [History] Metoprolol XL (24 HR) Succ [Toprol Xl] 12.5 mg PO BID #60 05/12/17 [Rx] Bisacodyl [Dulcolax] 10 mg RC DAILY PRN 06/29/17 [History] Dicyclomine [Bentyl] 10 mg PO QID 06/29/17 [History] Docusate Sodium [Dok] 100 mg PO BID 06/29/17 [History] Gabapentin [Neurontin] 100 mg PO BID 06/29/17 [History] Linaclotide [Linzess] 145 mcg PO DAILY 06/29/17 [History] Lubiprostone [Amitiza] 24 mcg PO BID 06/29/17 [History] Mirtazapine [Remeron] 15 mg PO HS 06/29/17 [History] Ondansetron HCl [Zofran] 4 mg PO Q6H PRN 06/29/17 [History] Oxybutynin [Ditropan] 5 mg PO DAILY 06/29/17 [History] Ranitidine HCl [Zantac 75] 75 mg PO BID 06/29/17 [History] Renal Vitamin [Renal Caps Softgel] 1 mg PO DAILY 06/29/17 [History] Sertraline [Zoloft] 50 mg PO DAILY 06/29/17 [History] Warfarin [Coumadin] 1.5 mg PO Q48H 06/29/17 [History] Warfarin [Coumadin] 2 mg PO Q48H 06/29/17 [History] 3 Allergy/AdvReac Type Severity Reaction Status Date / Time ibuprofen [From Motrin] AdvReac Nausea Verified 02/13/16 10:46 ROS unobtainable: due to mental status Palliative Care-Exam - Constitutional General appearance: Present: morbidly obese, no acute distress - Head Head Exam: Present: normal inspection, normocephalic - Eye Eye exam: Present: normal appearance - Respiratory Respiratory exam: Present: decreased breath sounds, CTAB Additional comments: Shallow respirations - Cardiovascular Cardiovascular exam: Present: tachycardia - GI/Abdominal Exam GI/Abdominal exam: Present: normal bowel sounds, soft additional comments: Rectal tube present - Catheter Type: Urethral (Haji) Additional comments: Small amount dk joyce urine - Extremities Exam Additional comments: 4+ edema bilateral upper and lower extremities - Neurological Exam Additional comments: Unresponsive to verbal and tactile stimuli. - Skin Skin exam: Present: dry, normal color, warm Palliative Quality Palliative Quality: Screen for Code Status: Yes, Screen for Goals of Care: Yes, Screen for Pain: Yes, If Pain Regimen Started, Initiate Bowel Regimen: NA ( loose stools, rectal tube), Screen for Nausea/Vomitting: NA
[2017-07-13] MEDS ORDERED: *HR* HYDROmorphone 2 MG/ML SYRINGE ONE (19:07)
[2017-07-13] MEDS: *HR* HYDROmorphone 2 MG/ML SYRINGE IVP PRN ×2 (19:21→20:50)
[2017-07-13] MEDS: *HR* LORazepam 2 MG/ML VIAL IVP PRN (20:50)
[2017-07-14] MEDS: *HR* HYDROmorphone 2 MG/ML SYRINGE IVP PRN ×4 (04:39→22:31)
[2017-07-14] MEDS: FentaNYL (PF) 3,000 MCG in 0.9 % Sodium Chloride 240 ML IVC SCH (08:15)
--- NOTE | 2017-07-14 08:33 | Palliative Progress Note ---
<Dhaval Mac - Last Filed: 07/14/17 08:31> Date of Encounter: 07/14/17 Time of Encounter: 08:31 - Assessment and plan (1) Anxiety Current Visit: Yes Status: Acute Assessment and plan: Continue when necessary Ativan (2) Copious oral secretions Current Visit: Yes Status: Acute Assessment and plan: Patient is not requiring use of oral suction. Continue scopolamine and atropine. (3) Generalized pain Current Visit: Yes Status: Acute Assessment and plan: Patient is comfortable. We will continue fentanyl drip at 150 g an hour. (4) ESRD (end stage renal disease) on dialysis Current Visit: Yes Status: Chronic (5) Septic shock Current Visit: Yes Status: Acute Assessment and plan: Secondary to VRE - Time Spent With Patient Total time spent is greater than 50% in coordination of care (as documented) at patient's floor/unit and/or counseling patient: - Subjective Interval history: Patient resting in bed. Patient appears comfortable. No acute overnight events. Patient not requiring suction and oral secretions are controlled. - Additional findings Additional findings: General: Resting comfortably Heart: Regular rate and rhythm with no murmur Lungs: coarse bilaterally Abdomen: Soft nontender, nondistended positive bowel sounds Skin: warm and dry, no mottling Extremities: 2+ pedal edema Neuro: Not alert, not oriented Vascular: Pedal and radial pulses 2 out of 4 Palliative Quality Palliative Quality: Screen for Code Status: Yes, Screen for Goals of Care: Yes, Screen for Pain: Yes, If Pain Regimen Started, Initiate Bowel Regimen: NA ( loose stools, rectal tube), Screen for Nausea/Vomitting: NA Consult Discharge Plan - Plan Referrals: NONE,PCP [Primary Care Provider] - <Franco Beck - Last Filed: 07/14/17 09:07> Date of Encounter: 07/14/17 - Time Spent With Patient Total time spent is greater than 50% in coordination of care (as documented) at patient's floor/unit and/or counseling patient: - Attending Attestation I examined this patient and my medical decision-making was reviewed with the Resident Physician. I agree with the documented findings, disposition and treatment plan as described except to the extent set forth below.
[2017-07-14] MEDS: *HR* LORazepam 2 MG/ML VIAL IVP PRN (16:13)
[2017-07-15] MEDS: *HR* HYDROmorphone 2 MG/ML SYRINGE IVP PRN ×8 (00:54→23:09)
[2017-07-15] MEDS: FentaNYL (PF) 3,000 MCG in 0.9 % Sodium Chloride 240 ML IVC SCH (06:21)
[2017-07-15] MEDS: *HR* LORazepam 2 MG/ML VIAL IVP PRN ×4 (09:12→16:59)
--- NOTE | 2017-07-15 09:19 | Palliative Progress Note ---
<Dhaval Mac - Last Filed: 07/15/17 09:13> Date of Encounter: 07/15/17 Time of Encounter: 09:13 - Assessment and plan (1) Anxiety Current Visit: Yes Status: Acute Assessment and plan: Continue when necessary Ativan (2) Copious oral secretions Current Visit: Yes Status: Acute Assessment and plan: Patient is not requiring use of oral suction. Continue scopolamine and atropine. (3) Generalized pain Current Visit: Yes Status: Acute Assessment and plan: Patient is comfortable. We will continue fentanyl drip at 150 g an hour. (4) ESRD (end stage renal disease) on dialysis Current Visit: Yes Status: Chronic (5) Septic shock Current Visit: Yes Status: Acute - Time Spent With Patient Total time spent is greater than 50% in coordination of care (as documented) at patient's floor/unit and/or counseling patient: - Subjective Interval history: Patient resting in bed. Patient appears comfortable. No acute overnight events. - Additional findings Additional findings: General: resting comfortably Heart: Regular rate and rhythm with no murmur Lungs: coarse breath sounds b/l Abdomen: Soft nontender, nondistended positive bowel sounds Skin: warm and dry Extremities: 2+ pedal edema, warm, no mottling Neuro: not alert Vascular: Pedal and radial pulses 2 out of 4 Palliative Quality Palliative Quality: Screen for Code Status: Yes, Screen for Goals of Care: Yes, Screen for Pain: Yes, If Pain Regimen Started, Initiate Bowel Regimen: NA ( loose stools, rectal tube), Screen for Nausea/Vomitting: NA Code Status: 07/14/17 09:44 Resuscitation Status: Active [RES] Routine Comment: Resuscitation Status: DNR-Comfort Care Consult Discharge Plan - Plan Referrals: NONE,PCP [Primary Care Provider] - <Franco Beck - Last Filed: 07/15/17 10:06> Date of Encounter: 07/15/17 - Time Spent With Patient Total time spent is greater than 50% in coordination of care (as documented) at patient's floor/unit and/or counseling patient: - Attending Attestation I examined this patient and my medical decision-making was reviewed with the Resident Physician. I agree with the documented findings, disposition and treatment plan as described except to the extent set forth below. Palliative Quality Code Status: 07/14/17 09:44 Resuscitation Status: Active [RES] Routine Comment: Resuscitation Status: DNR-Comfort Care
--- NOTE | 2017-07-15 13:45 | Pallative History & Physical ---
Date of Encounter: 07/15/17 Time of Encounter: 13:43 Internal Medicine - H&P: HPI Admitted From: Intrahospital Transfer Plans for Post Hospital Care: Hospice - Home History of present illness: Ms. Wei is a 72 year old female Patient is a 72-year-old female admitted initially with septic shock nursing facility with comorbidities of arthritis COPD GERD hypertension CHF. She was intubated and cared for in the intensive care unit for pressor support and was ultimately extubated during a compassionate extubation. Did not pass away immediately, therefore the patient's PIP on general inpatient hospice for to Medicare. Past Med Surg Social Fam HX - Past Medical History Medical history: arthritis, COPD, GERD, hypertension, osteoporosis Psychiatric history: ADHD, depression - Past Surgical History Surgical History: other - Social History Smoking Status: Never smoker Smokeless Tobacco Status: No Alcohol use: none Drug use: none - Family History Mother Living Status: Hx Family Cardiac Disorders: Yes Hx Family Endocrine Disorder: Yes (Diabetes) Internal Medicine - H&P: Meds Alendronate Sodium [Fosamax] 70 mg PO QWEEK 02/13/16 [History] Calcium Carb/Vitamin D3/Vit K1 [Calcium + D Soft Chewable Tab] 1 mg PO DAILY 04/22 [History] Amitriptyline [Elavil] 25 mg PO DAILY 04/28/17 [History] DULoxetine [Cymbalta] 30 mg PO BID 04/28/17 [History] HYDROcodone/Acet 7.5/325 mg [[place] 7.5-325 mg] 1 tab PO Q6H 04/28/17 [History] Trazodone HCl 100 mg PO BID 04/28/17 [History] Metoprolol XL (24 HR) Succ [Toprol Xl] 12.5 mg PO BID #60 05/12/17 [Rx] Bisacodyl [Dulcolax] 10 mg RC DAILY PRN 06/29/17 [History] Dicyclomine [Bentyl] 10 mg PO QID 06/29/17 [History] Docusate Sodium [Dok] 100 mg PO BID 06/29/17 [History] Gabapentin [Neurontin] 100 mg PO BID 06/29/17 [History] Linaclotide [Linzess] 145 mcg PO DAILY 06/29/17 [History] Lubiprostone [Amitiza] 24 mcg PO BID 06/29/17 [History] Mirtazapine [Remeron] 15 mg PO HS 06/29/17 [History] Ondansetron HCl [Zofran] 4 mg PO Q6H PRN 06/29/17 [History] Oxybutynin [Ditropan] 5 mg PO DAILY 06/29/17 [History] Ranitidine HCl [Zantac 75] 75 mg PO BID 06/29/17 [History] Renal Vitamin [Renal Caps Softgel] 1 mg PO DAILY 06/29/17 [History] Sertraline [Zoloft] 50 mg PO DAILY 06/29/17 [History] Warfarin [Coumadin] 1.5 mg PO Q48H 06/29/17 [History] Warfarin [Coumadin] 2 mg PO Q48H 06/29/17 [History] 3 Allergy/AdvReac Type Severity Reaction Status Date / Time ibuprofen [From Motrin] AdvReac Nausea Verified 02/13/16 10:46 Palliative Care-Exam - Constitutional Vitals: Temp Pulse Resp BP Pulse Ox 98.8 F 97 22 89/56 90 07/15/17 08:09 07/15/17 08:09 07/15/17 08:09 07/15/17 08:09 07/15/17 08:09 General appearance: Present: no acute distress - ENT ENT exam: Present: mucous membranes dry - Respiratory Respiratory exam: Present: decreased breath sounds - Cardiovascular Cardiovascular exam: Present: RRR - GI/Abdominal Exam GI/Abdominal exam: Present: normal bowel sounds, soft. Absent: tenderness - Neurological Exam Neurological exam: Present: altered - Psychiatric Psychiatric exam: Absent: agitated, anxious - Skin Skin exam: Present: dry, warm Palliative Quality Palliative Quality: Screen for Code Status: Yes, Screen for Goals of Care: Yes, Screen for Pain: Yes, If Pain Regimen Started, Initiate Bowel Regimen: NA ( loose stools, rectal tube), Screen for Nausea/Vomitting: NA Code Status: 07/14/17 09:44 Resuscitation Status: Active [RES] Routine Comment: Resuscitation Status: DNR-Comfort Care
--- NOTE | 2017-07-15 13:48 | Event Note ---
Date of Encounter: 07/15/17 Time of Encounter: 13:46 Hospice emergency medical service coordinator certification of terminal illness: Hospice benefit. Start: 07/13/2017 Hospice benefit. In: +90 days Palliative performance scale: 10-20% History: Patient with septic shock weaned off pressors as well as compassionately extubated area family does not want any further aggressive care. Patient continues to be quite hypotensive. Patient is also not eating or drinking. No plans are for any artificial feeding. Therefore I find that These findings support a life expectancy of 6 months or less. I attest that I have compose the above narrative based on my review of the patient's medical records, and or on my examination of the patient. Franco Beck M.D. Associate medical recruiter. [facility]
[2017-07-15] MEDS: Scopolamine Patch 1.5 MG PATCH.TD72 TD SCH (16:12)
[2017-07-15] MEDS: Atropine Sulfate 1% 40 DROP/2 ML BOTTLE SL PRN (18:00)
[2017-07-16] MEDS: *HR* HYDROmorphone 2 MG/ML SYRINGE IVP PRN ×4 (03:04→20:59)
[2017-07-16] MEDS: Atropine Sulfate 1% 40 DROP/2 ML BOTTLE SL PRN ×2 (03:08→20:59)
[2017-07-16] MEDS: FentaNYL (PF) 3,000 MCG in 0.9 % Sodium Chloride 240 ML IVC SCH (05:56)
--- NOTE | 2017-07-16 08:56 | Palliative Progress Note ---
<Dhaval Mac - Last Filed: 07/16/17 08:53> Date of Encounter: 07/16/17 Time of Encounter: 08:54 - Assessment and plan (1) Generalized pain Current Visit: Yes Status: Acute Assessment and plan: Patient is comfortable. will transition to fentanyl patch. This will help with fluid overload status. continue prn dilauded. (2) Anxiety Current Visit: Yes Status: Acute Assessment and plan: Continue when necessary Ativan (3) Copious oral secretions Current Visit: Yes Status: Acute Assessment and plan: Continue scopolamine and atropine. (4) ESRD (end stage renal disease) on dialysis Current Visit: Yes Status: Chronic (5) Septic shock Current Visit: Yes Status: Acute Assessment and plan: Secondary to VRE - Time Spent With Patient Total time spent is greater than 50% in coordination of care (as documented) at patient's floor/unit and/or counseling patient: - Subjective Interval history: Patient resting in bed. Patient appears comfortable. No acute overnight events. Patient is fluid overloaded. - Additional findings Additional findings: General: resting comfortably Heart: Regular rate and rhythm with no murmur Lungs: coarse breath sounds b/l, rales Abdomen: Soft nontender, nondistended positive bowel sounds Skin: warm and dry Extremities: 2+ pedal edema, warm, no mottling, warm Neuro: not alert Vascular: Pedal and radial pulses 2 out of 4 Palliative Quality Palliative Quality: Screen for Code Status: Yes, Screen for Goals of Care: Yes, Screen for Pain: Yes, If Pain Regimen Started, Initiate Bowel Regimen: NA ( loose stools, rectal tube), Screen for Nausea/Vomitting: NA Code Status: 07/14/17 09:44 Resuscitation Status: Active [RES] Routine Comment: Resuscitation Status: DNR-Comfort Care Consult Discharge Plan - Plan Referrals: NONE,PCP [Primary Care Provider] - <Franco Beck - Last Filed: 07/16/17 09:35> Date of Encounter: 07/16/17 - Time Spent With Patient Total time spent is greater than 50% in coordination of care (as documented) at patient's floor/unit and/or counseling patient: - Attending Attestation I examined this patient and my medical decision-making was reviewed with the Resident Physician. I agree with the documented findings, disposition and treatment plan as described except to the extent set forth below. Palliative Quality Code Status: 07/14/17 09:44 Resuscitation Status: Active [RES] Routine Comment: Resuscitation Status: DNR-Comfort Care
[2017-07-16] MEDS: *HR* FentaNYL PATCH 100 MCG PATCH TD SCH (09:49)
[2017-07-16] MEDS: *HR* LORazepam 2 MG/ML VIAL IVP PRN ×2 (17:04→20:59)
[2017-07-16] MEDS: Scopolamine Patch 1.5 MG PATCH.TD72 TD SCH (17:07)
[2017-07-17] MEDS: Atropine Sulfate 1% 40 DROP/2 ML BOTTLE SL PRN ×2 (06:06→20:17)
--- NOTE | 2017-07-17 08:49 | Palliative Progress Note ---
<Dhaval Mac - Last Filed: 07/17/17 08:47> Date of Encounter: 07/17/17 Time of Encounter: 08:48 - Assessment and plan (1) Generalized pain Current Visit: Yes Status: Acute Assessment and plan: Patient is comfortable. continue fentanyl patch. No requiring as much breakthorugh medication. continue prn dilauded. (2) Anxiety Current Visit: Yes Status: Acute Assessment and plan: Continue when necessary Ativan (3) Copious oral secretions Current Visit: Yes Status: Acute Assessment and plan: Continue scopolamine and atropine. (4) ESRD (end stage renal disease) on dialysis Current Visit: Yes Status: Chronic (5) Septic shock Current Visit: Yes Status: Acute Assessment and plan: Secondary to VRE - Time Spent With Patient Total time spent is greater than 50% in coordination of care (as documented) at patient's floor/unit and/or counseling patient: - Subjective Interval history: Patient resting in bed. Patient appears comfortable. No acute overnight events. Is requiring less prn dilauded after changing to fentanyl patch. - Additional findings Additional findings: General: resting comfortably Heart: Regular rate and rhythm with no murmur Lungs: coarse breath sounds b/l Abdomen: Soft nontender, nondistended positive bowel sounds Skin: warm and dry Extremities: 2+ pedal edema, warm, no mottling, warm Neuro: not alert Vascular: Pedal and radial pulses 2 out of 4 Palliative Quality Palliative Quality: Screen for Code Status: Yes, Screen for Goals of Care: Yes, Screen for Pain: Yes, If Pain Regimen Started, Initiate Bowel Regimen: NA ( loose stools, rectal tube), Screen for Nausea/Vomitting: NA Code Status: 07/14/17 09:44 Resuscitation Status: Active [RES] Routine Comment: Resuscitation Status: DNR-Comfort Care Consult Discharge Plan - Plan Referrals: NONE,PCP [Primary Care Provider] - (hospice) <Franco Beck - Last Filed: 07/17/17 09:10> Date of Encounter: 07/17/17 - Time Spent With Patient Total time spent is greater than 50% in coordination of care (as documented) at patient's floor/unit and/or counseling patient: - Attending Attestation I examined this patient and my medical decision-making was reviewed with the Resident Physician. I agree with the documented findings, disposition and treatment plan as described except to the extent set forth below. Palliative Quality Code Status: 07/14/17 09:44 Resuscitation Status: Active [RES] Routine Comment: Resuscitation Status: DNR-Comfort Care
[2017-07-17] MEDS: *HR* HYDROmorphone 2 MG/ML SYRINGE IVP PRN (20:18)
[2017-07-17] MEDS: *HR* LORazepam 2 MG/ML VIAL IVP PRN (20:18)
[2017-07-18] MEDS: *HR* LORazepam 2 MG/ML VIAL IVP PRN (05:05)
[2017-07-18] MEDS: Atropine Sulfate 1% 40 DROP/2 ML BOTTLE SL PRN (05:05)
[2017-07-18] MEDS: *HR* HYDROmorphone 2 MG/ML SYRINGE IVP PRN (05:05)
--- NOTE | 2017-07-18 09:04 | Palliative Progress Note ---
Date of Encounter: 07/18/17 Time of Encounter: 08:30 - Assessment and plan (1) Abdominal pain Current Visit: No Status: Acute Assessment and plan: Resting quietly. Tolerating fentanyl patch without issue. Only had one BTP dose of Dilaudid in past 24 hrs. Qualifiers: Abdominal location: unspecified location Qualified Code(s): R10.9 - Unspecified abdominal pain (2) Copious oral secretions Current Visit: Yes Status: Acute Assessment and plan: Maintained with oral suction, scopolomine patch and atropine. HOB up 30 degrees to facilitate management. (3) Goals of care, counseling/discussion Current Visit: No Status: Acute Assessment and plan: Family at bedside. They report that patient had a comfortable night. They report that they are going home today to deal with home issues and visit home family. They are aware that patient is comfort care and agree that she has had great care here. They deny having any needs and I provided family support and offered prayer. (4) ESRD (end stage renal disease) on dialysis Current Visit: Yes Status: Chronic Assessment and plan: Haji catheter in. Draining medium amount clear yellow urine. - Time Spent With Patient Total time spent is greater than 50% in coordination of care (as documented) at patient's floor/unit and/or counseling patient: 25 - 35 minutes - Subjective Interval history: Patient resting quietly. Still with loose secretions. Lightly suctioned orally to remove medium amount of clear white sputum. Tolerated well. Family at bedside. No complaints. - Constitutional Vitals: Family desires for patient not to be disturbed. General appearance: Present: no acute distress, obese - Head Head exam: Present: atraumatic - Eye Eye exam: Present: PERRL - ENT ENT exam: Present: mucous membranes moist - Respiratory Respiratory exam: Present: decreased breath sounds - Expanded Respiratory Exam Location: decreased breath sounds: Left, Right, Lower - Cardiovascular Cardiovascular exam: Present: RRR, +S1, +S2 - GI/Abdominal GI/Abdominal exam: Present: normal bowel sounds, soft - Extremities Exam Extremities exam: Present: pedal edema (bilateral pedal edema.) - Neurological Exam Neurological exam: Present: altered (patient with eyes closed and comfortable) Palliative Quality Palliative Quality: Screen for Code Status: Yes, Screen for Goals of Care: Yes, Screen for Pain: Yes, If Pain Regimen Started, Initiate Bowel Regimen: NA ( loose stools, rectal tube), Screen for Nausea/Vomitting: NA Code Status: 07/14/17 09:44 Resuscitation Status: Active [RES] Routine Comment: Resuscitation Status: DNR-Comfort Care Consult Discharge Plan - Plan Referrals: NONE,PCP [Primary Care Provider] - (hospice)
[2017-07-19] MEDS: *HR* FentaNYL PATCH 100 MCG PATCH TD SCH (08:17)
--- NOTE | 2017-07-19 08:49 | Palliative Progress Note ---
Date of Encounter: 07/19/17 Time of Encounter: 08:15 - Assessment and plan (1) Abdominal pain Current Visit: No Status: Acute Assessment and plan: Resting quietly. Tolerating fentanyl patch without issue. Only had one BTP dose of Dilaudid in past 24 hrs. Qualifiers: Abdominal location: unspecified location Qualified Code(s): R10.9 - Unspecified abdominal pain (2) Copious oral secretions Current Visit: Yes Status: Acute Assessment and plan: Maintained with light oral suction, Scopolamine patch and atropine gtts. HOB up 30 degrees to facilitate management. (3) Goals of care, counseling/discussion Current Visit: No Status: Acute Assessment and plan: Daughter at bedside. They report that patient had a comfortable night. They deny having any needs and I provided family support and offered prayer. (4) ESRD (end stage renal disease) on dialysis Current Visit: Yes Status: Chronic - Time Spent With Patient Total time spent is greater than 50% in coordination of care (as documented) at patient's floor/unit and/or counseling patient: less than 15 minutes - Subjective Interval history: Patient resting quietly. Secretions have improved with light oral suction. Family at bedside. No complaints. - Constitutional Vitals: Vitals stable General appearance: Present: no acute distress, obese - Head Head exam: Present: atraumatic - Eye Eye exam: Present: PERRL - ENT ENT exam: Present: mucous membranes moist - Respiratory Respiratory exam: Present: decreased breath sounds - Expanded Respiratory Exam Location: decreased breath sounds: Left, Right, Lower - Cardiovascular Cardiovascular exam: Present: RRR, +S1, +S2 - GI/Abdominal GI/Abdominal exam: Present: normal bowel sounds, soft - Extremities Exam Extremities exam: Present: pedal edema - Neurological Exam Neurological exam: Present: altered (resting, nonresponsive) - Psychiatric Psychiatric exam: Present: flat affect - Skin Skin exam: Present: pallor, warm Palliative Quality Palliative Quality: Screen for Code Status: Yes, Screen for Goals of Care: Yes, Screen for Pain: Yes, If Pain Regimen Started, Initiate Bowel Regimen: NA ( loose stools, rectal tube), Screen for Nausea/Vomitting: NA Code Status: 07/14/17 09:44 Resuscitation Status: Active [RES] Routine Comment: Resuscitation Status: DNR-Comfort Care Consult Discharge Plan - Plan Referrals: NONE,PCP [Primary Care Provider] - (hospice)
[2017-07-19] MEDS: Lacri-Lube 3.5 GM TUBE BOTH EYES SCH ×2 (09:56→19:50)
[2017-07-19] MEDS: *HR* HYDROmorphone 2 MG/ML SYRINGE IVP PRN ×4 (12:58→23:41)
[2017-07-19] MEDS: Scopolamine Patch 1.5 MG PATCH.TD72 TD SCH (14:44)
[2017-07-19] MEDS: *HR* LORazepam 2 MG/ML VIAL IVP PRN ×2 (19:51→23:41)
[2017-07-19] MEDS: Atropine Sulfate 1% 40 DROP/2 ML BOTTLE SL PRN (23:42)
[2017-07-20] MEDS: *HR* HYDROmorphone 2 MG/ML SYRINGE IVP PRN (05:47)
[2017-07-20] MEDS: *HR* LORazepam 2 MG/ML VIAL IVP PRN ×3 (05:47→14:40)
[2017-07-20] MEDS ORDERED: OxyCODONE CONC 5 MG/0.25 ML ORAL.SYG PO SCH (09:15)
--- NOTE | 2017-07-20 09:20 | Palliative Progress Note ---
<Dhaval Mac - Last Filed: 07/20/17 09:13> Date of Encounter: 07/20/17 Time of Encounter: 09:13 - Assessment and plan (1) Generalized pain Current Visit: Yes Status: Acute Assessment and plan: Patient is comfortable. continue fentanyl patch. start oral oxcodone [id number] gopi continue prn dilauded. plan is to d/c end of this week once on proper regimen family unsure which half-way they would want her to go to. (2) Anxiety Current Visit: Yes Status: Acute Assessment and plan: Continue when necessary Ativan (3) Copious oral secretions Current Visit: Yes Status: Acute Assessment and plan: controlled with suctioning and anticholinergics Continue scopolamine and atropine. (4) ESRD (end stage renal disease) on dialysis Current Visit: Yes Status: Chronic (5) Septic shock Current Visit: Yes Status: Acute Assessment and plan: Secondary to VRE - Time Spent With Patient Total time spent is greater than 50% in coordination of care (as documented) at patient's floor/unit and/or counseling patient: - Subjective Interval history: overnight patient was groaning, eyes open and signs of respiratory distress. This improved with oral suctioning and administering prn dilauded. - Additional findings Additional findings: General: resting comfortably Heart: Regular rate and rhythm with no murmur Lungs: diminished breath sounds some wheezing Abdomen: Soft nontender, nondistended positive bowel sounds Skin: warm and dry Extremities: 2+ pedal edema, warm, no mottling, warm Neuro: not alert Vascular: Pedal and radial pulses 2 out of 4 Palliative Quality Palliative Quality: Screen for Code Status: Yes, Screen for Goals of Care: Yes, Screen for Pain: Yes, If Pain Regimen Started, Initiate Bowel Regimen: NA ( loose stools, rectal tube), Screen for Nausea/Vomitting: NA Code Status: 07/14/17 09:44 Resuscitation Status: Active [RES] Routine Comment: Resuscitation Status: DNR-Comfort Care Consult Discharge Plan - Plan Referrals: NONE,PCP [Primary Care Provider] - (hospice) <Franco Beck - Last Filed: 07/20/17 09:57> Date of Encounter: 07/20/17 - Time Spent With Patient Total time spent is greater than 50% in coordination of care (as documented) at patient's floor/unit and/or counseling patient: - Attending Attestation I examined this patient and my medical decision-making was reviewed with the Resident Physician. I agree with the documented findings, disposition and treatment plan as described except to the extent set forth below. Palliative Quality Code Status: 07/14/17 09:44 Resuscitation Status: Active [RES] Routine Comment: Resuscitation Status: DNR-Comfort Care
[2017-07-20] MEDS ORDERED: OxyCODONE CONC 5 MG/0.25 ML ORAL.SYG PO PRN (09:44)
[2017-07-20] MEDS ORDERED: *HR* FentaNYL PATCH 100 MCG PATCH TD SCH (09:44)
[2017-07-20] MEDS: Lacri-Lube 3.5 GM TUBE BOTH EYES SCH ×2 (10:07→21:13)
[2017-07-20] MEDS ORDERED: FENTANYL TD SCH (10:15)
--- NOTE | 2017-07-21 08:07 | Palliative Progress Note ---
<Dhaval Mac - Last Filed: 07/21/17 08:05> Date of Encounter: 07/21/17 Time of Encounter: 08:05 - Assessment and plan (1) Generalized pain Current Visit: Yes Status: Acute Assessment and plan: Patient is comfortable. continue fentanyl patch. continue oral oxycodone prn: breaktrhough not used overnight plan is to d/c end of this week once on proper regimen family unsure which intermediate they would want her to go to. (2) Anxiety Current Visit: Yes Status: Acute Assessment and plan: Continue when necessary Ativan (3) Copious oral secretions Current Visit: Yes Status: Acute Assessment and plan: controlled with suctioning and anticholinergics Continue scopolamine and atropine. (4) ESRD (end stage renal disease) on dialysis Current Visit: Yes Status: Chronic (5) Septic shock Current Visit: Yes Status: Acute Assessment and plan: Secondary to VRE - Time Spent With Patient Total time spent is greater than 50% in coordination of care (as documented) at patient's floor/unit and/or counseling patient: - Subjective Interval history: No acute events overnight. - Additional findings Additional findings: General: resting comfortably Heart: Regular rate and rhythm with no murmur Lungs: diminished breath sounds some wheezing Abdomen: Soft nontender, nondistended positive bowel sounds Skin: warm and dry Extremities: 2+ pedal edema, warm, no mottling, warm Neuro: not alert Vascular: Pedal and radial pulses 2 out of 4 Palliative Quality Palliative Quality: Screen for Code Status: Yes, Screen for Goals of Care: Yes, Screen for Pain: Yes, If Pain Regimen Started, Initiate Bowel Regimen: NA ( loose stools, rectal tube), Screen for Nausea/Vomitting: NA Code Status: 07/14/17 09:44 Resuscitation Status: Active [RES] Routine Comment: Resuscitation Status: DNR-Comfort Care Consult Discharge Plan - Plan Referrals: NONE,PCP [Primary Care Provider] - (hospice) <Franco Beck - Last Filed: 07/21/17 10:49> Date of Encounter: 07/21/17 - Time Spent With Patient Total time spent is greater than 50% in coordination of care (as documented) at patient's floor/unit and/or counseling patient: - Attending Attestation I examined this patient and my medical decision-making was reviewed with the Resident Physician. I agree with the documented findings, disposition and treatment plan as described except to the extent set forth below. now on all oral meds will observe today Palliative Quality Code Status: 07/14/17 09:44 Resuscitation Status: Active [RES] Routine Comment: Resuscitation Status: DNR-Comfort Care
[2017-07-21] MEDS ORDERED: *HR* LORazepam Oral Conc 2 MG/ML SL PRN (10:38)
[2017-07-21] MEDS: Lacri-Lube 3.5 GM TUBE BOTH EYES SCH ×2 (15:52→20:00)
[2017-07-21] MEDS: Atropine Sulfate 1% 40 DROP/2 ML BOTTLE SL PRN (23:23)
[2017-07-22] MEDS: Atropine Sulfate 1% 40 DROP/2 ML BOTTLE SL PRN ×2 (06:03→08:41)
[2017-07-22 08:01] VITALS: BP 32/29
[2017-07-22] MEDS: Lacri-Lube 3.5 GM TUBE BOTH EYES SCH (08:41)
--- NOTE | 2017-07-22 08:57 | Palliative Progress Note ---
<Dhaval Mac - Last Filed: 07/22/17 08:54> Date of Encounter: 07/22/17 Time of Encounter: 08:55 - Assessment and plan (1) Hypoxemia Current Visit: Yes Status: Acute Assessment and plan: O2 saturations in 70s BP undetectable by BP cuff but pulses present extremities cold no mottling likely patient may pass today. (2) Generalized pain Current Visit: Yes Status: Acute Assessment and plan: Patient is comfortable. continue fentanyl patch. continue oral oxycodone prn: breaktrhough not used overnight (3) Anxiety Current Visit: Yes Status: Acute Assessment and plan: Continue when necessary Ativan (4) Copious oral secretions Current Visit: Yes Status: Acute Assessment and plan: Continue scopolamine and atropine. (5) ESRD (end stage renal disease) on dialysis Current Visit: Yes Status: Chronic (6) Septic shock Current Visit: Yes Status: Acute Assessment and plan: Secondary to VRE - Time Spent With Patient Total time spent is greater than 50% in coordination of care (as documented) at patient's floor/unit and/or counseling patient: - Subjective Interval history: Patient is making gurgling noises with every breath. Blood pressure is undetectable with blood pressure monitor. Extremities cold. Saturation down to 70. - Additional findings Additional findings: General: resting comfortably, no distress Heart: Regular rate and rhythm with no murmur Lungs: Coarse breath sounds, rales throughout Abdomen: Soft nontender, nondistended positive bowel sounds Skin: warm and dry Extremities: 2+ pedal edema, cold extremities Neuro: not alert Vascular: Pedal and radial pulses 2 out of 4 Palliative Quality Palliative Quality: Screen for Code Status: Yes, Screen for Goals of Care: Yes, Screen for Pain: Yes, If Pain Regimen Started, Initiate Bowel Regimen: NA ( loose stools, rectal tube), Screen for Nausea/Vomitting: NA Code Status: 07/14/17 09:44 Resuscitation Status: Active [RES] Routine Comment: Resuscitation Status: DNR-Comfort Care Consult Discharge Plan - Plan Referrals: NONE,PCP [Primary Care Provider] - (hospice) <Franco Beck - Last Filed: 07/22/17 09:07> Date of Encounter: 07/22/17 - Time Spent With Patient Total time spent is greater than 50% in coordination of care (as documented) at patient's floor/unit and/or counseling patient: - Attending Attestation I examined this patient and my medical decision-making was reviewed with the Resident Physician. I agree with the documented findings, disposition and treatment plan as described except to the extent set forth below. Palliative Quality Code Status: 07/14/17 09:44 Resuscitation Status: Active [RES] Routine Comment: Resuscitation Status: DNR-Comfort Care
--- NOTE | 2017-07-22 09:57 | Death Note ---
<Dhaval Mac - Last Filed: 07/22/17 09:52> Discharge Sum: Summary - Date and Time Date of admission: 07/13/17 18:57 Date of : 07/22/17 Time of : 09:44 - Summary Details: 72-year-old female was admitted with septic shock. Patient is intubated and required pressor support and ICU. Family ultimately decided that patient would rather be comfortable than have aggressive interventions. She had a terminal extubation and transition to hospice general inpatient. Patient was made comfortable with combination of pain medication, anxiety medication and anticholinergics. This morning patient's blood pressure is undetectable and her oxygen saturation had decreased. 9:44 AM patient has no heart sounds, breath sounds and no pulse and was pronounced . Family was at bedside. - Additional Data Confirmation of as documented by pronouncing clinician: no pulse, no respirations, no heart sounds Family: at bedside Attending/PCP notified?: Yes Attending physician: Franco Beck MD Was code activated?: No Autopsy requested?: No bank examiner notified?: Yes Organ bank notified?: No Advance directives: Yes Hospice patient?: Yes Discharge Sum: Diag - PCOD Probable Cause of : Cardiorespiratory arrest Discharge Sum: Prov - Provider Primary care physician: PCP NONE Admitting clinician: Franco Beck Attending physician on admission: Franco Beck Consults: 07/13/17 14:50 Consult to Palliative Care [CONS] Routine Comment: Consulting Provider: [facility] [place] Reason for Consult: GIP Time Notified: 14:50 Call Completed: No Pronouncing clinician: Franco Beck <Franco Beck - Last Filed: 07/22/17 10:09> Discharge Sum: Summary - Date and Time Date of admission: 07/13/17 18:57 - Additional Data Attending physician: Franco Beck MD Discharge Sum: Prov - Provider Primary care physician: PCP NONE Consults: 07/13/17 14:50 Consult to Palliative Care [CONS] Routine Comment: Consulting Provider: [facility] Reason for Consult: GIP Time Notified: 14:50 Call Completed: No
== END 2017-07-22 17:00 | disposition expired | DRG 871 ==
LOC: 2ANU 18:57
PROVIDERS: ADMIT Family Medicine Hospice and Palliative Medicine; ATTEND Family Medicine Hospice and Palliative Medicine